=== PATIENT | female | born 1940 | race Caucasian/White ===

== ENCOUNTER 2019-09-03 07:27 | Inpatient (IN) | payer MEDICARE, OTHER ==
[~2019-09-03] VITALS: Ht 165.1 cm; Wt 56.7 kg
--- OUTSIDE RECORDS SUMMARY | ~2019-09-03 | XMS | Encounter Summary ---
Demographics + + + | Address | [address] | | | [place] [address] | + + + | Home Phone | | + + + | Preferred Language | Unknown | + + + | Marital Status | Single | + + + | Yazidi Affiliation | [id number] | + + + | Race | Unknown | + + + | Ethnic Group | Unknown | + + + Author + + + | Author | [facility] | | | and [place] | + + + | Organization | [facility] | | | and [place] | + + + | Address | Unknown | + + + | Phone | Unavailable | + + + Support + + +---------+ + | Name | Relationship | Address | Phone | + + +---------+ + | Josue Schaeffer | ECON | Unknown | | + + +---------+ + Care Team Providers + +------+ + | Care Industrial Safety And Health Manager Name | Role | Phone | + +------+ + | Ramesh You DO | PCP | | + +------+ + Reason for Visit + + + | Reason | Comments | + + + | Follow-up | | + + + Follow Up (Routine) + +--------+ + + + + | Status | Reason | Specialty | Diagnoses / | Referred By | Referred To | | | | | Procedures | Contact | Contact | + +--------+ + + + + | Authorized | | Cardiology | Diagnoses | Avelino, | Ramírez, | | | | | Encounter | Ramesh | MD Godwin | | | | | for | Baldemar, DO 56 | [address] | | | | | adjustment | [address] | [address] | | | | | and | [place] | [place], | | | | | management | [place], [place] | [place] [address] | | | | | of other | [id number] | Phone: | | | | | part of | Phone: | [phone] | | | | | cardiac | [phone] | Fax: | | | | | pacemaker | Fax: | [phone] | | | | | Atherosclero | [phone] | | | | | | tic heart | | | | | | | disease of | | | | | | | algaaciq | | | | | | | coronary | | | | | | | artery | | | | | | | without | | | | | | | angina | | | | | | | pectoris | | | | | | | Presence of | | | | | | | cardiac | | | | | | | pacemaker | | | | | | | Sick sinus | | | | | | | syndrome | | | | | | | (HCC) | | | | | | | Procedures | | | | | | | OFFICE VISIT | | | | | | | EXTENDED | | | + +--------+ + + + + Encounter Details +--------+---------+ + + + | Date | Type | Department | Care Team | Description | +--------+---------+ + + + | 07/25/ | Office | [facility] | Sourav Martinez | Pacemaker | | 2019 | Visit | CARDIOLOGY [address] | MD Christopher [address] | reprogramming/check | | | | [place], | [address] [place] | (Primary Dx); | | | | [place] [id number] | [place] [id number] | Pacemaker, Dual | | | | [phone] | [phone] | Chamber Medtronic | | | | | | 06/24/2015 Dr. Aden | | | | | | Kareen ; | | | | | | Tachycardia-bradycar | | | | | | kimberlee syndrome (HCC); | | | | | | Essential | | | | | | hypertension, | | | | | | benign; Mixed | | | | | | hyperlipidemia | +--------+---------+ + + + Social History + +-------+ +--------+------+ | Tobacco Use | Types | Packs/Day | Years | Date | | | | | Used | | + +-------+ +--------+------+ | Never Smoker | | | | | + +-------+ +--------+------+ + +---+---+---+ | Smokeless Tobacco: | | | | | Never Used | | | | + +---+---+---+ + + +---------+ + | Alcohol Use | Drinks/Week | oz/Week | Comments | + + +---------+ + | Not Currently | | | | + + +---------+ + + + + + | Alcohol Habits | Answer | Date Recorded | + + + + | How often do you have a drink containing | Never | 07/14/2018 | | alcohol? | | | + + + + | How many drinks containing alcohol do you | Not asked | | | have on a typical day when you are | | | | drinking? | | | + + + + | How often do you have six or more drinks on | Not asked | | | one occasion? | | | + + + + + + + | Sex Assigned at | Date Recorded | | | | + + + | Not on file | | + + + documented as of this encounter Last Filed Vital Signs + + + + + | Vital Sign | Reading | Time Taken | Comments | + + + + + | Blood Pressure | 132/68 | 07/26/2019 1:04 PM | | | | | PDT | | + + + + + | Pulse | 68 | 07/26/2019 1:04 PM | | | | | PDT | | + + + + + | Temperature | - | - | | + + + + + | Respiratory Rate | 16 | 07/26/2019 1:04 PM | | | | | PDT | | + + + + + | Oxygen Saturation | - | - | | + + + + + | Inhaled Oxygen | - | - | | | Concentration | | | | + + + + + | Weight | 57.6 kg (126 lb 15.8 | 07/26/2019 1:04 PM | | | | oz) | PDT | | + + + + + | Height | 165.1 cm (5' 5") | 07/26/2019 1:04 PM | | | | | PDT | | + + + + + | Body Mass Index | 21.13 | 07/26/2019 1:04 PM | | | | | PDT | | + + + + + documented in this encounter Progress Notes Sourav Martinez MD - 07/26/2019 1:30 PM PDTFormatting of this note might be differe nt from the original. PATIENT NAME: Maria Alejandra Schaeffer : 1940: AGE: 78 y.o. REFERRED BY: Godwin Elmore MD PRIMARY CARE: Chinmay You DO CARDIOLOGY OFFICE VISIT Date of Service: 07/26/19 HISTORY OF PRESENT ILLNESS: Maria Alejandra Schaeffer is a 78 y.o. 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 She is being seen today for further consultation further evaluation given her history of valvular disease. Her Josue dill sees me. She is referred by Godwin Elmore MD for her history of valvular disease and pacemaker t herapy. She describes a history of aortic valve replacement with [address] Theo aortic valve, mi tral valve replacement with [address] Theo mitral valve on 12/10/94 at [facility] by Ihsan guan MD. she states that prior to that, she had previously undergone mitral valve repair in . No detailed surgical records are available for review. She has been compliant with her anticoagulation regimen and checks her INRs herself. She is moderately active without any exertional symptoms. MEDICAL, SURGICAL, AND PERSONAL HISTORY Past Medical History: Diagnosis Date Cardiac abnormality Hyperlipidemia Past Surgical History: Procedure Laterality Date CARDIAC PACEMAKER PLACEMENT PANCREATECTOMY TOTAL HYSTERECTOMY Family History Problem Relation Age of Onset Diabetes Mother Cancer Father Family Status Relation Name Status Mother (Not Specified) Father (Not Specified) Social History Socioeconomic History Marital status: Single Spouse name: Not on file Number of children: Not on file Years of education: Not on file Highest education level: Not on file Tobacco Use Smoking status: Never Smoker Smokeless tobacco: Never Used Substance and Sexual Activity Alcohol use: Not Currently Frequency: Never Drug use: Never CURRENT MEDICATIONS Current Outpatient Medications Medication Sig Dispense Refill albuterol (PROAIR HFA) 90 mcg/puff inhaler Inhale 1-2 puffs into the lungs every 4 hour s as needed. ALPRAZolam (XANAX) 0.5 mg tablet cholecalciferol (VITAMIN D-3) 25 mcg (1,000 units) capsule Take 2,000 Units by mouth. ezetimibe (ZETIA) 10 mg tablet Take 10 mg by mouth Daily. fluticasone (FLONASE) 50 mcg/nasal spray 2 sprays. fluticasone-salmeterol (ADVAIR DISKUS) 100-50 mcg/puff diskus inhaler Inhale 1 puff int o the lungs. furosemide (LASIX) 20 mg tablet Take 20 mg by mouth. levothyroxine (SYNTHROID) 75 MCG tablet Take 75 mcg by mouth. meclizine (ANTIVERT) 25 mg tablet Take 25 mg by mouth. metoprolol tartrate (LOPRESSOR) 25 mg tablet Take 25 mg by mouth 2 times daily. sertraline (ZOLOFT) 50 mg tablet Take 25 mg by mouth. tiZANidine (ZANAFLEX) 2 MG tablet Take 2 mg by mouth every 8 hours as needed. traMADol (ULTRAM) 50 mg tablet VENTOLIN HFA 108 (90 Base) MCG/ACT inhaler warfarin (COUMADIN) 5 mg tablet Take 5 mg by mouth. No current facility-administered medications for this visit. ALLERGIES Allergies Allergen Reactions Atorvastatin Myalgia Muscle weakness-->possible myositis Codeine Other (See Comments) Adhesive & Tape Rash ROS I have reviewed the Review of Systems form dated today and scanned into the media tab. OBJECTIVE: PHYSICAL EXAM BP 132/68 | Pulse 68 | Resp 16 | Ht 1.651 m (5' 5") | Wt 57.6 kg (126 lb 15.8 oz) | BM I 21.13 kg/m Physical Exam Constitutional: She is oriented to person, place, and time. She appears well-developed and well-nourished. HENT: Head: Normocephalic. Eyes: No scleral icterus. Neck: Normal carotid pulses and no JVD present. Carotid bruit is not present. Cardiovascular: Normal rate, regular rhythm, S1 normal, S2 normal, normal heart sounds, int act distal pulses and normal pulses. PMI is not displaced. Exam reveals no gallop and no mid systolic click. No murmur heard. Pulses: Carotid pulses are 2+ on the right side and 2+ on the left side. Radial pulses are 2+ on the right side and 2+ on the left side. Dorsalis pedis pulses are 2+ on the right side and 2+ on the left side. Pulmonary/Chest: Effort normal and breath sounds normal. No accessory muscle usage. No resp iratory distress. She has no wheezes. She has no rhonchi. She has no rales. Abdominal: Soft. Normal aorta and bowel sounds are normal. She exhibits no abdominal bruit. There is no hepatosplenomegaly. There is no abdominal tenderness. Musculoskeletal: General: No edema. Neurological: She is alert and oriented to person, place, and time. Gait normal. Skin: Skin is warm and dry. No cyanosis. Nails show no clubbing. Psychiatric: She has a normal mood and affect. Her mood appears not anxious. She does not e xhibit a depressed mood. Vitals reviewed. ECG: Reviewed by me notable for atrial paced rhythm, heart rate 68, inferolateral T wave ab normalities. LAB RESULTS: LIPID Lab Results Component Value Date CHOLHDL 4.5 (A) 07/06/2018 LDLEX 117 (A) 07/06/2018 HDLEX 41.3 07/06/2018 TRIGEX 130 07/06/2018 CHOLEX 184 07/06/2018 CHEMISTRY Lab Results Component Value Date GLUEX 97 07/06/2018 NAEX 140 07/06/2018 KEX 4.3 07/06/2018 CLEX 104 07/06/2018 CO2EX 25 07/06/2018 ASTEX 26 07/06/2018 ALTEX 9 07/06/2018 EGFREX 33 07/06/2018 CREEX 1.53 (A) 07/06/2018 HEMATOLOGY Lab Results Component Value Date WBCEX 4.7 07/06/2018 HGBEX 13.5 07/06/2018 HCTEX 40.7 07/06/2018 PLTEX 146 07/06/2018 I reviewed records from PCP for office visit on 07/14/2018. Echocardiogram on 09/30/1999 shows normal left ventricular size and systolic function, mecha nical valves in mitral and aortic position with normal forward velocities and no evidence of significant regurgitation. mild mitral regurgitation cannot be ruled out. At [facility] Echocardiogram on 10/18/2001 shows normal left ventricular size and systolic function, aorti c and mitral mechanical prosthesis with good hemodynamic function; disc motion is present. Prudencio Morgan M.D. at [facility] Echocardiogram on 02/06/11 shows Left ventricular size and systolic function are normal, th ere is biatrial enlargement, there is a normal functioning mechanical mitral valve. 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 By Bandar Tucker MD at [facility]. Echocardiogram on 01/13/12 shows, the study was technically difficult with many images being suboptimal in quality, visualization is limited, but LV systolic function is grossly normal , left ventricular ejection fraction is 60% (+/- 5), borderline concentric left ventricular hypertrophy, there is a prosthetic mitral valve with normal function, there is a prosthetic aortic valve with mild stenosis, compared to the prior echo report on 02/06/11, there is no significant change. By Bandar Tucker MD at [facility] Echocardiogram on 12/29/12 shows the cardiac rhythm showed frequent PVCs during the exam, l eft ventricular systolic function is normal, the left and right atria are severely enlarged, there is a mechanical mitral valve, the prosthetic mitral valve function s normally, there is a mechanical aortic valve, the gradients through the prosthetic aortic valve are mildly increased for this type of valve suggesting mild stenosis, compared to the prior echo report on 01/13/2012, there is no significant change. By Sonya faustin MD Echocardiogram on 03/13/14 shows, left ventricular systolic function is normal, the gradients for this prosthetic mitral valve are in the normal range, the gradients through the prosthe tic aortic valve are mildly increased for this type of valve suggesting mild stenosis, luis red to the prior echo report on 12/29/12, there is no significant change. By Markie Mathur MD. Echocardiogram on 04/09/15 shows, left ventricular systolic function is normal, the gradients for this prosthetic mitral valve are in the normal range, the gradients through the prosthe tic aortic valve are mildly increased for this type of valve suggesting mild stenosis, luis red to the prior echo report on 03/13/2014, there is no significant change. By Markie narayan MD Echocardiogram on 08/14/16 shows, left ventricular systolic function is normal, the left and right atria are severely enlarged, the gradients for this prosthetic mitral valve are in the normal range. By Markie Mathur MD. The gradients through the prosthetic aortic valve are within the normal range for this type of valve, aortic valve gradients have improved to the normal range, compared with the prior exam. Left ventricular ejection fraction is 55% (+/- 5). By Markie Mathur MD at [facility] ASSESSMENT: 1. History of aortic and mitral valve replacement -patient underwent mechanical mitral and aortic valve replacements in 1994. She would benefit from repeat evaluation via echocardio graphy as it has not been performed for 3 years. She has been compliant with her INRs with good monitoring and has not had any exertional complaints. 2. History of sick sinus syndrome status post dual-chamber pacemaker implantation -this wa s carried out in 2016. Device interrogation today reveals underlying sinus bradycardia with heart rate in the 30s and 97% atrial pacing. Estimated battery longevity 5.5 years. Nette smith has normal and stable device function with good heart rate histogram. We will see her in 6 months for repeat evaluation. PLAN: 1. Echocardiogram. 2. Device interrogation in 6 months. 3. Fall prevention reemphasized. 4. Continue current medications for now. Total time of approximately 60 minutes was spent with the patient and/or patient's family, and/or on the patient's floor/unit, of which more than 50% was spent counseling and/or coord ination the patient's care related to history of valve replacement, device therapy, and sugg estions for further work-up and management. ISourav MD, PhD, [facility] personally performed the services described in this documentation. All medical record entries made by the clinical office support specialist were at my dir ection. I have reviewed the documentation and discharge instructions (if appropriate), and edited the documentation if necessary. I agree that the record reflects my personal performa nce and is accurate and complete for visit date 07/26/2019. Portions of this report were transcribed using voice recognition software. Every effort wa s made to ensure accuracy; however, inadvertent computerized line therapist errors may be pre sent. Electronically signed by: She Martinez MD PhD FACC 07/26/2019 documented in t his encounter Procedure Notes Sourav Martinez MD - 07/26/2019 1:30 PM PDTAssociated Order(s): DEVICE INTERROGATIO NProcedure(s): DEVICE INTERROGATIONPre-Procedure Diagnose(s): Pacemaker reprogramming/check; Pacemaker; Tachycardia-bradycardia syndrome (HCC) PATIENT NAME: Maria Alejandra Schaeffer : 1940: AGE: 78 y.o. Pacemaker Evaluation Report July 26, 2019 Reason for evaluation: new patient Indication for pacemaker: Tachycardia-bradycardia syndrome (HCC) (I49.5, 427.81); Pacemaker (Z95.0, V45.01); Pacemak er reprogramming/check (Z45.018, V53.31) Patient was seated and/or reclined and device was interrogated. Pacemaker parameters, batte ry status, percentages pacing and significant arrhythmias were reviewed. Heart rate histogra ms were assessed for adequate heart rate response and any alerts reviewed. Appropriate lead impedance testing was performed. Pacing impedances were reviewed for any significant changes . Sensing tests were performed by decreasing LRL. Adequacy of pacing thresholds were tested by increasing LRL for each lead and recorded for loss of capture. Final outputs were assesse d for adequate safety margins. Please see the scanned [facility] report and device PDF for further details. Data collected by Mari Guzman RN Underlying rhythm: sinus bradycardia 39 beats. 0 mode switch episodes accounting for <0.1% of the time. 0 atrial high rate episodes. 15 ventricular high rate episodes. The longest occurred 11/03/2018 at 3:43 PM for 6 seconds. EGM is consistent with 10 beat run of NSVT with rate 126-185 beats. PVC singles 199.5/hour PVC runs 4.7/hour Histogram good. Battery longevity 5.5 years. Normal and stable device function. Prefers office checks. Device interrogation due in office in 6 months. documented in t his encounter Plan of Treatment Not on filedocumented as of this encounter Procedures + +--------+ + + + | Procedure Name | Priori | Date/Time | Associated Diagnosis | Comments | | | ty | | | | + +--------+ + + + | ECG 12 LEAD | Routin | 07/26/2019 | Essential | Results for this | | | e | 1:50 PM | hypertension, benign | procedure are in the | | | | PDT | Mixed | results section. | | | | | hyperlipidemia | | + +--------+ + + + | DEVICE INTERROGATION | Routin | 07/26/2019 | Pacemaker | Results for this | | | e | 1:30 PM | reprogramming/check | procedure are in the | | | | PDT | Pacemaker, Dual | results section. | | | | | Chamber Medtronic | | | | | | 06/24/2015 Dr. Aden | | | | | | Kareen | | | | | | Tachycardia-bradycar | | | | | | kimberlee syndrome (HCC) | | + +--------+ + + + documented in this encounter Results ECG 12 lead (07/26/2019 1:50 PM PDT) + + + + + + | Component | Value | Ref Range | Performed | Pathologist | | | | | At | Signature | + + + + + + | VENTRICULAR | 68 | BPM | [facility] | | | RATE EKG | | | | | + + + + + + | ATRIAL RATE | 68 | BPM | [facility] | | + + + + + + | P-R | 204 | ms | [facility] | | | INTERVAL | | | | | + + + + + + | QRS | 84 | ms | [facility] | | | DURATION | | | | | + + + + + + | Q-T | 376 | ms | [facility] | | | INTERVAL | | | | | + + + + + + | Q-T | 399 | ms | [facility] | | | INTERVAL | | | | | | (CORRECTED) | | | | | + + + + + + | QRS AXIS | 54 | degrees | [facility] | | + + + + + + | T AXIS | -54 | degrees | [facility] | | + + + + + + | INTERPRETAT | Atrial-paced rhythmT | | [facility] | | | ION TEXT | wave abnormality, | | | | | | consider inferolateral | | | | | | ischemiaAbnormal ECGWhen | | | | | | compared with ECG of | | | | | | 14-JUL-2018 14:04,No | | | | | | significant change was | | | | | | foundConfirmed by | | | | | | RAMÍREZ BORDEN, GODWIN | | | | | | ([id number]) on 07/28/2019 | | | | | | 12:06:01 PM | | | | + + + + + + + + | Specimen | + + | | + + + + + | Narrative | Performed At | + + + | | | + + + + +---------+ + + | Performing | Address | City/State/Zipcode | Phone Number | | Organization | | | | + +---------+ + + | [facility] | | | | + +---------+ + + Device Interrogation (07/26/2019 1:30 PM PDT) + + + | Narrative | Performed At | + + + | Sourav White | [facility] | | MD Michelle 07/26/2019 3:51 PM PATIENT NAME: Maria Alejandra Medina | | | Maksim : 1940: AGE: 78 y.o. Pacemaker Evaluation | | | Report July 26, 2019 Reason for evaluation: new patientIndication for | | | pacemaker: Tachycardia-bradycardia syndrome (HCC) (I49.5, 427.81); | | | Pacemaker (Z95.0, V45.01); Pacemaker reprogramming/check (Z45.018, | | | V53.31) Patient was seated and/or reclined and device was | | | interrogated. Pacemaker parameters, battery status, percentages pacing | | | and significant arrhythmias were reviewed. Heart rate histograms were | | | assessed for adequate heart rate response and any alerts reviewed. | | | Appropriate lead impedance testing was performed. Pacing impedances | | | were reviewed for any significant changes. Sensing tests were | | | performed by decreasing LRL. Adequacy of pacing thresholds were tested | | | by increasing LRL for each lead and recorded for loss of capture. | | | Final outputs were assessed for adequate safety margins. Please see | | | the scanned [facility] report and device PDF for further details.Data | | | collected by Mari Guzman RN Underlying rhythm: sinus bradycardia 39 | | | beats.0 mode switch episodes accounting for <0.1% of the time. 0 | | | atrial high rate episodes. 15 ventricular high rate episodes. The | | | longest occurred 11/03/2018 at 3:43 PM for 6 seconds. EGM is consistent | | | with 10 beat run of NSVT with rate 126-185 beats.PVC singles | | | 199.5/hour PVC runs 4.7/hourHistogram good. | | | Battery longevity 5.5 years.Normal and stable device function.Prefers | | | office checks. Device interrogation due in office in 6 months. | | |recorded for loss of capture. Final outputs were assessed for | | |adequate safety margins. | | | | | |Please see the scanned [facility] report and device PDF for further | | |details. | | |Data collected by Mari Guzman RN | | | | | | Underlying rhythm: sinus bradycardia 39 beats. | | |0 mode switch episodes accounting for <0.1% of the time. | | |0 atrial high rate episodes. | | |15 ventricular high rate episodes. The longest occurred 11/03/2018 | | |at 3:43 PM for 6 seconds. EGM is consistent with 10 beat run of | | |NSVT with rate 126-185 beats. | | |PVC singles 199.5/hour | | |PVC runs 4.7/hour | | |Histogram good. Battery longevity 5.5 years. | | |Normal and stable device function. | | |Prefers office checks. | | |Device interrogation due in office in 6 months. | | | | | | | | + + + + +---------+ + + | Performing | Address | City/State/Zipcode | Phone Number | | Organization | | | | + +---------+ + + | [facility] | | | | + +---------+ + + documented in this encounter Visit Diagnoses + + | Diagnosis | + + | Pacemaker reprogramming/check - Primary Fitting and adjustment of cardiac pacemaker | + + | Pacemaker, Dual Chamber Medtronic 06/24/2015 Dr. Markie Mathur Cardiac pacemaker in | | situ | + + | Tachycardia-bradycardia syndrome (HCC) Sinoatrial node dysfunction | + + | Essential hypertension, benign | + + | Mixed hyperlipidemia | + + documented in this encounter
--- OUTSIDE RECORDS SUMMARY | ~2019-09-03 | XMS | Encounter Summary ---
Demographics + + + | Address | [address] | | | [place] [address] | + + + | Home Phone | | + + + | Preferred Language | Unknown | + + + | Marital Status | | + + + | Zoroastrianism Affiliation | VANDA | + + + | Race | White | + + + | Ethnic Group | Not or | + + + Author + + + | Organization | Unknown | + + + | Address | Unknown | + + + | Phone | Unavailable | + + + Support + + + + + | Name | Relationship | Address | Phone | + + + + + | Josue Schaeffer | ECON | [address] | | | | | [place] [address] | | + + + + + | Dariana Dowling | ECON | Unknown | | + + + + + Care Team Providers + +------+ + | Care Motion Picture Film Examiner Name | Role | Phone | + +------+ + PCP | Unavailable | + +------+ + Encounter Details +--------+ + + + + | Date | Type | Department | Care Team | Description | +--------+ + + + + | 12/09/ | Results | | Other, Faculty | | | 1994 | Only | | [phone] | | +--------+ + + + + Social History + +-------+ +--------+------+ | Tobacco Use | Types | Packs/Day | Years | Date | | | | | Used | | + +-------+ +--------+------+ | Never Assessed | | | | | + +-------+ +--------+------+ + + + | Sex Assigned at | Date Recorded | | | | + + + | Not on file | | + + + + + + + | Job Start Date | Occupation | Industry | + + + + | Not on file | Not on file | Not on file | + + + + + + + + | Travel History | Travel Start | Travel End | + + + + + + | No recent travel history available. | + + documented as of this encounter Plan of Treatment Not on filedocumented as of this encounter Procedures + +--------+ + + + | Procedure Name | Priori | Date/Time | Associated Diagnosis | Comments | | | ty | | | | + +--------+ + + + | X-RAY CHEST 2 VIEW | Routin | 12/09/1994 | | Results for this | | | e | 8:25 PM | | procedure are in the | | | | PST | | results section. | + +--------+ + + + documented in this encounter Results CHEST 2 VIEW (12/09/1994 8:25 PM PST) + + + + + + | Component | Value | Ref Range | Performed | Pathologist | | | | | At | Signature | + + + + + + | CHEST, 2 | Radiologist 1: [place], | | | | | VIEWS [place] | [facility] | | | | | STEREO | J.-Radiologist 2: | | | | | | SUD[facility] GOLD, | | | | | | MARIA ALEJANDRA HARRELL | | | | | | | | | | | | | | | | | | CHEST, | | | | | | PA AND LATERAL VIEWS: | | | | | | 12-09-94 at 2025 hours | | | | | | Dictated: 12-17-94 | | | | | | There are no old films | | | | | | available for | | | | | | comparison. FINDINGS: | | | | | | No pneumothorax is | | | | | | identified. The lungs | | | | | | appear clear.The | | | | | | costophrenic angles are | | | | | | sharp bilaterally. | | | | | | There is promince | | | | | | ofthe left atrial | | | | | | appendage consistent | | | | | | with left atrial | | | | | | enlargement.The | | | | | | remainder of the | | | | | | cardiomediastinal | | | | | | silhouette appears | | | | | | normal. Thepulmonary | | | | | | vasculature appears | | | | | | normal. The bony | | | | | | structures appearnormal. | | | | | | IMPRESSION: Left | | | | | | atrial enlargement. END | | | | | | OF IMPRESSION: | | | | + + + + + + + + | Specimen | + + | | + + + + + | Narrative | Performed At | + + + | [facility] | | + + + + +---------+ + + | Performing | Address | City/State/Zipcode | Phone Number | | Organization | | | | + +---------+ + + | [facility] | | | | [facility]IOLOG[facility] | | | | + +---------+ + + documented in this encounter Visit Diagnoses Not on filedocumented in this encounter"
--- OUTSIDE RECORDS SUMMARY | ~2019-09-03 | XMS | Encounter Summary ---
Demographics + + + | Address | [address] | | | [place] [address] | + + + | Home Phone | | + + + | Preferred Language | Unknown | + + + | Marital Status | | + + + | Yazdanism Affiliation | VANDA | + + + | Race | White | + + + | Ethnic Group | Not or | + + + Author + + + | Author | [facility] | + + + | Organization | [facility] | + + + | Address | Unknown | + + + | Phone | Unavailable | + + + Support + + + + + | Name | Relationship | Address | Phone | + + + + + | Josue Schaeffer | ECON | [address] | | | | | [place] [address] | | + + + + + | Dariana Dowling | ECON | Unknown | | + + + + + Care Team Providers + +------+ + | Care Appeals Specialist Name | Role | Phone | + +------+ + | Josiah Walls MD | PCP | | + +------+ + Reason for Referral Diagnostic Testing (Routine) +--------+--------+ + + + + | Status | Reason | Specialty | Diagnoses / | Referred By | Referred To | | | | | Procedures | Contact | Contact | +--------+--------+ + + + + | Closed | | Cardiology | Diagnoses | Pantely, | Car Echo | | | | | Aortic | MD Emanuel | [address] | | | | | valve | [address] | | | | | disease, | Ave | [place] | | | | | rheumatic | [place], [place] | Muse | | | | | Procedures | [phone] | Building, 2nd | | | | | TRANSTHORACI | | floor | | | | | C | | [place], [place] | | | | | ECHOCARDIOGR | | [address] | | | | | AM, ADULT | | Phone: | | | | | | | [phone] | +--------+--------+ + + + + Reason for Visit + + + | Reason | Comments | + + + | Follow-up encounter | | + + + Office Visit - E/M Services (Routine) +--------+--------+ + + + + | Status | Reason | Specialty | Diagnoses / | Referred By | Referred To | | | | | Procedures | Contact | Contact | +--------+--------+ + + + + | Closed | | Cardiology | | Kirit, | Eddie, | | | | | | Dejon Boogie, | MD Emanuel | | | | | | POOL COORDINATOR BLUE | [address] | | | | | | [place] | [facility] | | | | | | URGENT CARE | [place], [place] | | | | | | [address] | [address] | | | | | | [address] | | | | | | | [place], | | | | | | | [place] [address] | | | | | | | Phone: | | | | | | | [phone] | | | | | | | Fax: | | | | | | | [phone] | | +--------+--------+ + + + + Encounter Details +--------+---------+ + + + | Date | Type | Department | Care Team | Description | +--------+---------+ + + + | 07/31/ | Office | Cardiology [facility] at | Emanuel Morgan, | Aortic valve | | 2009 | Visit | [facility] [address] | MD | disease, rheumatic; | | | | [facility] | | Mitral valve | | | | [facility], | | disorder [address] | | | | Building | | | | | | [place], [place] | | | | | | [address] | | | | | | [phone] | | | +--------+---------+ + + + Social History + +-------+ +--------+------+ | Tobacco Use | Types | Packs/Day | Years | Date | | | | | Used | | + +-------+ +--------+------+ | Never Smoker | | | | | + +-------+ +--------+------+ + + +---------+ + | Alcohol Use | Drinks/Week | oz/Week | Comments | + + +---------+ + | Not Asked | | | | + + +---------+ + + + + | Sex Assigned [...] + + + | Blood Pressure | 146/76 | 07/31/2009 10:59 AM | | | | | PDT | | + + + + + | Pulse | 56 | 07/31/2009 10:59 AM | | | | | PDT | | + + + + + | Temperature | - | - | | + + + + + | Respiratory Rate | - | - | | + + + + + | Oxygen Saturation | 98% | 07/31/2009 10:59 AM | | | | | PDT | | + + + + + | Inhaled Oxygen | - | - | | | Concentration | | | | + + + + + | Weight | 62.3 kg (137 lb 6.4 | 07/31/2009 10:59 AM | | | | oz) | PDT | | + + + + + | Height | 163.8 cm (5' 4.5") | 07/31/2009 10:59 AM | | | | | PDT | | + + + + + | Body Mass Index | 23.22 | 07/31/2009 10:59 AM | | | | | PDT | | + + + + + documented in this encounter Patient Instructions Patient Instructions Emanuel Morgan MD - 07/31/2009 12:03 PM PDT1. General Information. Physician Information: Emanuel Morgan M.D. Division of Cardiovascular Medicine [place] [address] Email: [email or web address] Cardiovascular Medicine Web Site: [email or web address] Office: [phone] After hours: [phone] and ask to speak to the physician taking calls for cardiology. Appointments: [phone] Nurse (for questions, requests, or to provide information): Malka Rosado RN: [phone]. If your call is long distance, dial the toll-free number of . This will conn ect you to an [facility] rocket assembly operator who can connect you to the number or person that you want. documented in this encounter Progress Notes Emanuel Morgan MD - 08/04/2009 9:06 PM PDTFormatting of this note might be different fro m the original. CARDIOLOGY RETURN VISIT Maria Alejandra Schaeffer is a 68 y.o. 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 Referring Provider/PCP: Josiah Walls MD Cardiac Problem list/risk factors: 1. Rheumatic heart disease. 1.1. Mitral valve commissurotomy. 1.2. 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 1.3. Chronic warfarin therapy. 1.4. Functional class II status but not necessarily related to her heart. 1.5 Increasing edema, controlled on diuretics 2. Hypertension, controlled. 3. Chronic migraines. 4. Chronic allergies. 5. Hypothyroidism, now euthyroid. 6. Diffuse joint and muscular pains related to arthritis and/or fibromyalgia. 7. Two "falls" episodes of uncertain etiology. Current outpatient prescriptions Medication Sig ADVAIR DISKUS 250-50 mcg/Dose Inhalation Disk with Device 1 puff in the morning and 1 p uff at night CALCIUM + D OR (1200 mg calcium and 500mg vitamin D) 1 tablet daily COD LIVER OIL OR 1 capsule daily Fluticasone Propionate (FLONASE) 50 mcg/Actuation Nasal Aerosol, [place] 2 sprays in am a nd pm Garlic 1,000 mg Oral Capsule 2 capsules daily guaifenesin LA (MUCINEX) 600 mg Oral Tablet Sustained Release Take 600 mg by mouth two times daily. LASIX 20 MG TAB take 1 tablet (20mg) by oral route once daily Lecithin 1,200 mg Oral Tablet, Chewable once daily levothyroxine 75 mcg Oral Tablet Take 75 mcg by mouth once daily. lisinopril 5 mg Oral Tablet Take 1 Tab by mouth once daily. MECLIZINE OR (10 mg tablet) 1/2 tablet daily POTASSIUM CHLORIDE SR 10 MEQ CAP take 1 tab daily with food salsalate 500 mg Oral Tablet 1 tablet daily VITAMIN B COMPLEX OR 1200 mg daily VITAMIN C 1,000 mg Oral Tablet 1 tablet daily VITAMIN E OR 1 tablet daily WARFARIN SODIUM 5 MG ORAL TAB take as directed by anticoagulation clinic XANAX 2 mg Oral Tablet 1/4 tablet at night as needed ZOLOFT 50 mg Oral Tablet 1/2 tablet daily Allergies: Aspirin, Clarification needed, Adhesive tape and Codeine Subjective: Maria Alejandra Ureña Cartersha has noted a number os symptoms since I last saw her. She is noting more pal pitations over the past 6 months. She is most aware of them at night. She is not aware ceasar t they cause her any difficulty. No sustained rapid rates. She also notes lightheadedness especially when she rapidly turns her head. She was started on meclozine for this and she f eels it may be helping. She also notes that she has had what she calls 2 "falls", one about 5 months ago and the second about 2 months. Both of these occurred while she was standing. She suddenly notes she is falling over. It is unclear when she is losing consciousness, o r as she feels, she loses her balance as she tries to walk or turn, but she states that her legs don't move. She hit her head both times (different sides) and she had a CT after the m ost recent that did not show any subdural hemorrhage or evidence of a stroke. It is unclear whether she has any warnings and it is also unclear whether she lost consciousness. She fe els she didn't and that she is awake the entire time. That is why she refers to them as "fa lls". She doesn't think her heart rate is fast as she is aware of the valve clicks. It is more difficult for her to tell whether her HR could be very slow. She feels that she is onesimo rt and clear immediately after the fall. No explanation for these 2 "falls" has been identi fied. She continues to be active. She can walk on the level OK, but inclines make her dyspneic. She can do 1 flight of stairs, but needs to rest if she tries a 2nd flight. She hasn't bee n very active over the winter and hopes to get outside more now that the weather is improvin g. Cardiac Risks: Age and Hypertension Exercise Tolerance: NYHA FC II Review of System: See attached flow sheet. Physical Exam: Vitals: BP 146/76 | Pulse 56 | Ht 1.638 m (5' 4.5") | Wt 62.324 kg (137 lb 6.4 oz) | SpO2 98% GENERAL: Well appearing, no acute distress. HEENT: WNL. Wears glasses LUNGS: Clear to auscultation. CV: Estimated JVP is <8 cm. Carotid upstrokes are normal; No bruits. PMI is in the 5th IC S at MCL. Regular rhythm with extrasystoles. Mechanical heart sounds heard. 2/6 FERNANDO at th e base. No rubs or gallops. ABDOMEN: No tenderness, active bowel sounds. No hepatic or splenic enlargement. EXTREMITIES: Pulses are +2 symmetrical. No edema. SKIN: No cyanosis. ECG: (today) NSR rate 54 bpm. Premature atrial and ventricular complexes. Non-specific ST-T abnormaliti es. ECHO: (today) Assessment: Aortic and mitral mechanical valve replacement 15 years ago that are functioning well. Her exercise capacity is stable. I don't know what to make out of her "falls". I am not certa in whether they are falls due to some balance or mechanical issues vs a syncopal episode. I t is difficult for her to be certain, but she feels she is awake the entire time and is awar e she is falling. Her description is that she is going to walk, but her legs don't start mo ving in time and she falls. I see nothing obvious from her ECG or Echo that would explain w hat is going on. She does have PACs and PVCs, but those alone shouldn't cause problems. Mary hammer makes light of the episodes and states that she just needs to be more careful so that she doesn't fall. I am not certain whether that is correct. I am concerned that this could be cardiac or neurologic in etiology. The problem is the infrequent episodes. I think it woul d be reasonable to do an exercise test to see if any arrhythmia occurs. Otherwise, it would take a loop recorder implantation to enable us to obtain an ECG at the time of an event, if one occurs again. Plan: 1. She prefers that we just continue to observe her and she will try to be more careful ab out the" falls" .I don't have much better to offer at this point, but I do want her to let me know if she has another "fall". If so, I think a cardiac evaluation with exercise test a nd implantable loop recorder can be considered. Neurologic evaluation might also be conside red. 2. Appointment in 1 year if stable. documented in this en counter Plan of Treatment + +------+--------+ + + | Name | Type | Priori | Associated Diagnoses | Order Schedule | | | | ty | | | + +------+--------+ + + | TRANSTHORACIC | ECG | Routin | Aortic valve | Ordered: 07/31/2009 | | ECHOCARDIOGRAM, | | e | disease, rheumatic | | | ADULT | | | | | + +------+--------+ + + documented as of this encounter Procedures + +--------+ + + + | Procedure Name | Priori | Date/Time | Associated Diagnosis | Comments | | | ty | | | | + +--------+ + + + | OUTSIDE CARDIOLOGY | | 01/28/2010 | | Results for this | | | | 10:52 AM | | procedure are in the | | | | PST | | results section. | + +--------+ + + + | OUTSIDE CARDIOLOGY | | 12/27/2009 | | Results for this | | | | 12:00 AM | | procedure are in the | | | | PST | | results section. | + +--------+ + + + | EJECTION FRACTION | Routin | 07/31/2009 | | Results for this | | | e | 1:31 PM | | procedure are in the | | | | PDT | | results section. | + +--------+ + + + | 12 LEAD ECG | Routin | 07/31/2009 | Aortic valve | Results for this | | | e | 11:59 AM | disease, rheumatic | procedure are in the | | | | PDT | Mitral valve | results section. | | | | | disorder 424.0 | | + +--------+ + + + documented in this encounter Results OUTSIDE CARDIOLOGY (01/28/2010 10:52 AM PST) + + + | Narrative | Performed At | + + + | | | + + + + + | Procedure Note | + + | 01/28/2010 10:52 AM PST | | | + + OUTSIDE CARDIOLOGY (12/27/2009 12:00 AM PST) + + + | Narrative | Performed At | + + + | | | + + + + + | Procedure Note | + + | 12/27/2009 12:00 AM PST | | | + + EJECTION FRACTION (07/31/2009 1:31 PM PDT) + + + + + + | Component | Value | Ref Range | Performed | Pathologist | | | | | At | Signature | + + + + + + | EJECTION | >60%Comment: EF Recorded | | [facility] | | | FRACTION | from Transthoracic | | OF | | | | Echocardiogram | | CARDIOLOGY | | + + + + + + + + | Specimen | + + | | + + + + + + + | Performing | Address | City/State/Zipcode | Phone Number | | Organization | | | | + + + + + | [facility] | [address] | [place], [place] | | | CARDIOLOGY | [address] | [address] | | + + + + + 12 LEAD ECG (07/31/2009 11:59 AM PDT) + + + + + + | Component | Value | Ref Range | Performed | Pathologist | | | | | At | Signature | + + + + + + | VENTRICULAR | 54 | BPM | [facility] | | | RATE | | | OF | | | | | | CARDIOLOGY | | + + + + + + | ATRIAL RATE | 54 | BPM | [facility] | | | | | | OF | | | | | | CARDIOLOGY | | + + + + + + | P-R | 164 | ms | [facility] | | | INTERVAL | | | OF | | | | | | CARDIOLOGY | | + + + + + + | QRS | 92 | ms | [facility] | | | DURATION | | | OF | | | | | | CARDIOLOGY | | + + + + + + | QT | 434 | ms | [facility] | | | | | | OF | | | | | | CARDIOLOGY | | + + + + + + | QTC | 411 | ms | [facility] | | | | | | OF | | | | | | CARDIOLOGY | | + + + + + + | R AXIS | 17 | degrees | [facility] | | | | | | OF | | | | | | CARDIOLOGY | | + + + + + + | T AXIS | 156 | degrees | [facility] | | | | | | OF | | | | | | CARDIOLOGY | | + + + + + + | EKG | Sinus bradycardia with | | [facility] | | | DIAGNOSIS | Possible Premature | | OF | | | | atrial complexes | | CARDIOLOGY | | | | withAberrant | | | | | | conductionST & T wave | | | | | | abnormality, consider | | | | | | anterolateral | | | | | | ischemiaAbnormal ECG"I | | | | | | have personally | | | | | | interpreted this report, | | | | | | either alone or with a | | | | | | trainee."Confirmed by | | | | | | MANOHAR PALM ([id number]) on | | | | | | 02-Aug-2009 12:18:34 | | | | + + + + + + + + | Specimen | + + | | + + + + + | Narrative | Performed At | + + + | Please click | [facility] | | on view image for the detailed interpretation from [employer] results. | CARDIOLOGY | + + + + + + + + | Performing | Address | City/State/Zipcode | Phone Number | | Organization | | | | + + + + + | [facility] | [address] | [place], [place] | | | CARDIOLOGY | [address] | [address] | | + + + + + documented in this encounter Visit Diagnoses + + | Diagnosis | + + | Aortic valve disease, rheumatic Other and unspecified rheumatic aortic diseases | + + | Mitral valve disorder 424.0 Mitral valve disorders | + + documented in this encounter
--- OUTSIDE RECORDS SUMMARY | ~2019-09-03 | XMS | Encounter Summary ---
Demographics + + + | Address | [address] | | | [place] [address] | + + + | Home Phone | | + + + | Preferred Language | Unknown | + + + | Marital Status | | + + + | Jainism Affiliation | VANDA | + + + | Race | White | + + + | Ethnic Group | Not or | + + + Author + + + | Author | [facility] | + + + | Organization | [facility] | + + + | Address | Unknown | + + + | Phone | Unavailable | + + + Support + + + + + | Name | Relationship | Address | Phone | + + + + + | Josue Schaeffer | ECON | [address] | | | | | [place] [address] | | + + + + + | Dariana Dowling | ECON | Unknown | | + + + + + Care Team Providers + +------+ + | Care Furnace Filler Name | Role | Phone | + +------+ + | Josiah Walls MD | PCP | | + +------+ + Reason for Visit + + + | Reason | Comments | + + + | Appointment | | + + + Encounter Details +--------+ + + + + | Date | Type | Department | Care Team | Description | +--------+ + + + + | 01/23/ | Telephone | Cardiology [facility] at | Emanuel Morgan, | Appointment | | 2009 | | [facility] [address] | | | | | | [facility] | | | | | | Health and Healing, | | | | | | Building | | | | | | Floor [place], [place] | | | | | | [address] | | | | | | [phone] | | | +--------+ + + + + [...] Comments | + + +---------+ + | No | | | | + + +---------+ [...] Not on filedocumented as of this encounter Visit Diagnoses Not on filedocumented in this encounter"
--- OUTSIDE RECORDS SUMMARY | ~2019-09-03 | XMS | Encounter Summary ---
Demographics + + + | Address | [address] | | | [place] [address] | + + + | Home Phone | | + + + | Preferred Language | Unknown | + + + | Marital Status | | + + + | Rastafarian Affiliation | VANDA | + + + | Race | White | + + + | Ethnic Group | Not or | + + + Author + + + | Author | [facility] | + + + | Organization | [facility] | + + + | Address | Unknown | + + + | Phone | Unavailable | + + + Support + + + + + | Name | Relationship | Address | Phone | + + + + + | Josue Schaeffer | ECON | [address] | | | | | [place] [address] | | + + + + + | Dariana Dowling | ECON | Unknown | | + + + + + Care Team Providers + +------+ + | Care Ob/Gyn Physician Name | Role | Phone | + +------+ + PCP | Unavailable | + +------+ + Encounter Details +--------+ + + + + | Date | Type | Department | Care Team | Description | +--------+ + + + + | 08/12/ | Office | [facility] | Note, Outpatient | Progress Note | | 2000 | Visit-Trans | MEDICINE | Clinic | | | | cribed | | | | +--------+ + + + [...] + + documented as of this encounter Progress Notes Interface, Professor Sculpture In - 11/25/2005 1:02 AM PDTCLINIC DATE: 08/12/2000 ENDOCRINOLOGY CLINIC SUBJECTIVE: The patient returns for followup of Graves' disease. She last states that she is feeling better. She remains on Tapazole 10 mg p.o. t.i.d. She does note some complaints of increased bowel movements with some fecal incontinence. She denies any problems with palpitations and Dr. Morgan has discontinued her Toprol at this time. She states her energy level is good, and she has no difficulties with breathing. She denies any problems with tremor. She is still having some problems with her muscles, most particularly in her legs. She has also noticed some changes in her nails with some darkening and lined areas. OBJECTIVE: VITAL SIGNS: Weight 132.5 pounds, blood pressure 112/70, and pulse is 52. GENERAL: This is a very pleasant elderly woman in no acute distress. HEENT: There is no conjunctival injection or chemosis. Extraocular movements are intact without lid lag, retractions or staring. NECK: Supple. There is approximately 30 to 40-g soft goiter with no distinct nodules. There is no peripheral tremor. CARDIAC: PMI is normal. SKIN: Normal thickness and temperature. NEUROLOGIC: Reflexes are 2+ with normal relaxation phase. EXTREMITIES: There is trace pedal edema. IMPRESSION: Grave's disease status post status post radioactive iodine ablation with 10.7 mEq of Iodine-131 6 weeks ago, currently clinically euthyroid. We will confirm this with laboratories today and adjust her Tapazole as needed. I anticipate that over the next several months, we will be able to taper and discontinue her Tapazole. I discussed with her that there is a risk for permanent hypothyroidism, and should this occur, we would need to start thyroid hormone replacement. To assess for this, we will need thyroid function tests approximately once in a month, and the patient is agreeable to this. I discussed with her that the changes in her nails may be related to her hyperthyroidism, and that she may additionally expect some hair loss which is common after episodes of hyperthyroidism. In addition, I do wonder about her hyperdefecation as to whether she still may some subtle hyperthyroidism but again, we will check thyroid function tests today and adjust her Tapazole as needed. Now that her thyroid hormone levels are better controlled, it is very appropriate to stop her beta fide. 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 PLAN 1. Free T4 and TSH to adjust dose of Tapazole today. 2. I plan to repeat thyroid function tests to be done at a lab near her home. The patient was given a lab slip for that. 3. Return to clinic in 2 months for repeat clinical examination. Oralia Self M.D. [facility] [employer] [facility] [place] / [id number] / [id number] / [id number] / C: 08/25/2000 ds cc: Emanuel Morgan M.D. [facility] Cardiology [address] MARI EDOUARD M.D. [facility] [address] [place] [address] [place] [id number] signed by Interface, Professor Sculpture In at 11/25/2005 1:02 AM PDTInterf patria, Professor Sculpture In - 11/25/2005 1:02 AM PDTCLINIC DATE: 08/12/2000 CARDIOLOGY CLINIC REASON FOR VISIT: Mrs. Schaeffer is a 60-year-old woman who comes in for a followup of her cardiac status after being treated for hyperthyroidism. MEDICAL PROBLEM LIST 1. Rheumatic heart disease. 1.1 Mitral valve commissurotomy. 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 1.3 Coumadin therapy. 1.4 Functional class II status. 2. Hypertension, controlled. 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 4. Chronic migraine headaches. 5. Chronic swelling in the left arm from surgery. 6. Multiple allergies. 7. Acute hyperthyroidism, now successfully treated. MEDICATIONS: Coumadin is suggested based on the INR, Claritin 10 mg q.d., Flonase inhaler p.r.n., albuterol inhaler p.r.n., Azmacort inhaler p.r.n., Serevent inhaler p.r.n., Premarin 0.625 mg 1/2 a tablet q.d., Lasix 20 mg q.d. p.r.n., meclizine 25 mg p.r.n., salicylate 5 mg p.r.n., promethazine 25 mg p.r.n., and Librium 5 mg p.r.n. SUBJECTIVE: Mrs. Schaeffer is actually doing very well. She is not having any more of the shakes. The swelling has gotten a whole lot better. All of her symptoms are pretty much resolving. She is seeing Dr. Self today in Endocrinology. She is still on the Tapazole and is on thyroid replacement and those will be evaluated and adjusted today. She is also still taking metoprolol 50 mg b.i.d. which she will stop. She notices that if she walks too long or works out in the yard too much, her legs will get tired, otherwise she has been doing well. She has had no bleeding with her Coumadin. PHYSICAL EXAMINATION: GENERAL: She does not have any of the findings of hyperthyroidism. VITAL SIGNS: Her weight is 133 pounds, blood pressure is 130/72, and pulse is 55 and regular. When she was at the peak of her hyperthyroidism, her weight was 104 pounds. LUNGS: Clear to auscultation. CARDIAC: Jugular venous pressure is 5 to 6 cm. She has a systolic ejection murmur along the left sternal border at 2/6. No diastolic murmurs are heard. ABDOMEN: Bowel sounds are active, nontender. EXTREMITIES: No edema in her legs. ASSESSMENT: Mrs. Schaeffer is doing well and returning to baseline after a successful treatment of her hyperthyroidism. PLAN 1. We will discontinue the atenolol. 2. Continue on her other medications. 3. She can either let us know if she is coming back to see Dr. Self again, and we can try to set up a joint appointment, otherwise we would see her in 6 months' time. Emanuel Morgan M.D. GP / HS [id number] / [id number] / [id number] / [id number] signed by Interface, Professor Sculpture In at 11/25/2005 1:02 AM PDTdocume nted in this encounter Plan of Treatment Not on filedocumented as of this encounter Visit Diagnoses Not on filedocumented in this encounter"
--- OUTSIDE RECORDS SUMMARY | ~2019-09-03 | XMS | Encounter Summary ---
Demographics + + + | Address | [address] | | | [place] [address] | + + + | Home Phone | | + + + | Preferred Language | Unknown | + + + | Marital Status | | + + + | Yazdanism Affiliation | VANDA | + + + | Race | White | + + + | Ethnic Group | Not or | + + + Author + + + | Author | [facility] | + + + | Organization | [facility] | + + + | Address | Unknown | + + + | Phone | Unavailable | + + + Support + + + + + | Name | Relationship | Address | Phone | + + + + + | Josue Schaeffer | ECON | [address] | | | | | [place] [address] | | + + + + + | Dariana Dowling | ECON | Unknown | | + + + + + Care Team Providers + +------+ + | Care Tube Backer Name | Role | Phone | + +------+ + | Enoc Lee NP | PCP | | + +------+ + Encounter Details +--------+ + + + + | Date | Type | Department | Care Team | Description | +--------+ + + + + | 10/12/ | Ancillary | Registration [id number] | Maurice Garcia Capri, | | | 2006 | Registratio | [facility] | [address] | | | | n | [address]: [id number] | [place], [place] | | | | | [place], [place] | [address] | | | | | [address] | [phone] | | | | | [phone] | | | +--------+ + + + [...]
--- OUTSIDE RECORDS SUMMARY | ~2019-09-03 | XMS | Encounter Summary ---
Demographics + + + | Address | [address] | | | [place] [address] | + + + | Home Phone | | + + + | Preferred Language | Unknown | + + + | Marital Status | | + + + | Caodaism Affiliation | VANDA | + + + | Race | White | + + + | Ethnic Group | Not or | + + + Author + + + | Author | [facility] | + + + | Organization | [facility] | + + + | Address | Unknown | + + + | Phone | Unavailable | + + + Support + + + + + | Name | Relationship | Address | Phone | + + + + + | Josue Schaeffer | ECON | [address] | | | | | [place] [address] | | + + + + + | Dariana Dowling | ECON | Unknown | | + + + + + Care Team Providers + +------+ + | Care Automobile Mechanic Helper Name | Role | Phone | + +------+ + | Enoc Lee NP | PCP | | + +------+ + Encounter Details +--------+ + + + + | Date | Type | Department | Care Team | Description | +--------+ + + + + | 12/01/ | Ancillary | Registration [id number] | Charity Cartagena, | | | 2004 | Registratio | [facility] [address] | [address] [facility] | | | | [address] | [address]: [id number] | [address] | | | | | [place], [place] | [place], [place] | | | | | [address] | [address] | | | | | [phone] | [phone] | | | | | | | | +--------+ + + [...]
--- OUTSIDE RECORDS SUMMARY | ~2019-09-03 | XMS | Encounter Summary ---
Demographics + + + | Address | [address] | | | [place] [address] | + + + | Home Phone | | + + + | Preferred Language | Unknown | + + + | Marital Status | | + + + | Gnosticist Affiliation | VANDA | + + + | Race | White | + + + | Ethnic Group | Not or | + + + Author + + + | Author | [facility] | + + + | Organization | [facility] | + + + | Address | Unknown | + + + | Phone | Unavailable | + + + Support + + + + + | Name | Relationship | Address | Phone | + + + + + | Josue Schaeffer | ECON | [address] | | | | | [place] [address] | | + + + + + | Dariana Dowling | ECON | Unknown | | + + + + + Care Team Providers + +------+ + | Care Retail Management Keyholder Name | Role | Phone | + +------+ + | Josiah Walls MD | PCP | | + +------+ + Reason for Visit AUTH/CERT +--------+--------+ + + + + | Status | Reason | Specialty | Diagnoses / | Referred By | Referred To | | | | | Procedures | Contact | Contact | +--------+--------+ + + + + | Closed | | | | | [facility] [address] | | | | | | | Proceduralcar | | | | | | | [address] | | | | | | | [address] | | | | | | | [address] | | | | | | | [facility] | | | | | | | Hospital | | | | | | | [place], [place] | | | | | | | [address] | | | | | | | Phone: | | | | | | | [phone] | | | | | | | Fax: | | | | | | | [phone] | +--------+--------+ + + + + Encounter Details +--------+ + + + + | Date | Type | Department | Care Team | Description | +--------+ + + + + | 11/08/ | Hospital | [facility] [address] | George Webb MD | | | 2009 | Encounter | [address] | [address] | | | | | [address] [facility] | [address] [place], | | | | | [place], [place] | [place] [address] | | | | | [address] | [phone] | | | | | [phone] | | | +--------+ + + + [...] + + + | Blood Pressure | 142/60 | 11/08/2009 3:17 PM | | | | | PDT | | + + + + + | Pulse | 57 | 11/08/2009 3:17 PM | | | | | PDT | | + + + + + | Temperature | 35.6 C (96.1 F) | 11/08/2009 3:17 PM | | | | | PDT | | + + + + + | Respiratory Rate | 16 | 11/08/2009 3:17 PM | | | | | PDT | | + + + + + | Oxygen Saturation | 99% | 11/08/2009 3:17 PM | | | | | PDT | | + + + + + | Inhaled Oxygen | - | - | | | Concentration | | | | + + + + + | Weight | 60 kg (132 lb 3.2 | 11/08/2009 11:10 AM | | | | oz) | PDT | | + + + + + | Height | 165.1 cm (5' 5") | 11/08/2009 11:10 AM | | | | | PDT | | + + + + + | Body Mass Index | 22 | 11/08/2009 11:10 AM | | | | | PDT | | + + + + + documented in this encounter Discharge Instructions Instructions Madeline Mcintosh RN - 11/08/2009Formatting of this note might be differen t from the original. NURSING COMMUNICATION CONTINUOUS Discontinue Comments: Communication: Pt to be discharged, once awake and can walk and eat and ambul ate. No driving today.ILR Discharge InstructionsFollow the guidelines below. Call you doct or if you notice any unusual symptoms. Remember: you are under the influence of medicines. You must have some one else take you home, either by car or taxi. Do not drive, operate machinery or power tools. Don t drink any alcoholic beverages. Don t make any impor tant decision or sign legal papers.Wound CareWatch your ILR site for infection report an y redness, swelling, green or yellow drainage from the site (pink or clear drainage can be n ormal). Report temperatures over 100.5 degrees.The incision will not have stitches on the ou tside but will have steri-strips (plastic strips) holding the incision together do not p ull these off. After one week (when you can begin bathing or showering again) they will wa sh off.No direct water on the incision site for five days that means no showering or swi mming. There is no need to have a bandage over the site unless there is drainage. Sukumar r, you may want to wear a bandage if you clothing is irritating. (Women may choose not to we ar a bra as it may be irritating). Do not immerse the wound in a tub or pool for one month a fter the procedure.The incision site and healing process should be checked by someone, daryl r your local physician or in the EP Clinic here in one week.Diet:Your diet should not have t o be changed as a result of your ILR explant. Please check with your doctor or nurse if th ere is any other reason to change your diet.Activities:The instructions here pertain only to your ILR. There may be other activity recommendations based on other medical conditions.T he first week restrict arm activity to gentle arm motion only! During the first week avoid h eavy lifting (no more that 10 lbs.) pushing or pulling, and over aggressive arm motions (i.e . tennis, painting, lawn mowing).We are advocates of regular activity and think that you inder uld, if you are able, walk, bicycle or swim. Whatever is most enjoyable for you, three to fi ve days a week. If you don t know how to begin a regular activity program, please ask lola toledo.Symptoms to Report:If in the first month you notice signs of infectionIf you have a ny new symptoms like dizziness, fainting or new chest pain or shortness of breath.How to Con tact us: Cardiology Division Office [phone] Cardiology Patient Shun ne LineDr. George Reynaga. Bandar Ivy, ANP Katelyn Conley darshan or weekends: ask for on-call forestry biology specialist documented in this encounter Medications at Time of Discharge + + + +---------+--------+ + | Medication | Sig | Dispensed | Refills | Start | End Date | | | | | | Date | | + + + +---------+--------+ + | CALCIUM + D OR | (1200 mg calcium and | | 0 | | | | | 500mg vitamin D) 1 | | | | | | | tablet daily | | | | | + + + +---------+--------+ + | COD LIVER OIL OR | 1 capsule daily | | 0 | | | + + + +---------+--------+ + | Garlic 1,000 mg | 2 capsules daily | | 0 | | | | Oral Capsule | | | | | | + + + +---------+--------+ + | Lecithin 1,200 mg | once daily | | 0 | | | | Oral Tablet, | | | | | | | Chewable | | | | | | + + + +---------+--------+ + | salsalate 500 mg | takes 1 tablet per | | 0 | | | | Oral Tablet | week | | | | | + + + +---------+--------+ + | VITAMIN B COMPLEX | 1200 mg daily | | 0 | | | | OR | | | | | | + + + +---------+--------+ + | VITAMIN C 1,000 mg | 1 tablet daily | | 0 | | | | Oral Tablet | | | | | | + + + +---------+--------+ + | VITAMIN E OR | 1 tablet daily | | 0 | | | + + + +---------+--------+ + | XANAX 2 mg Oral | 1/4 tablet at night | | 0 | | | | Tablet | as needed | | | | | + + + +---------+--------+ + | ZOLOFT 50 mg Oral | 1/2 tablet daily | | 0 | | | | Tablet | | | | | | + + + +---------+--------+ + documented as of this encounter Progress Notes Wale Guerrier Md - 11/08/2009 3:37 PM PDTEP fellow brief Note: Mrs Schaeffer has had green leafy vegetables in the last few days and within 1 day her INR went from 2.9 to 1.22 (repeat INR 1.3) . Her last dose of coumadin was on Wednesday (5mg). She knott s missed one dose only. She says she can adjust her coumadin so that her INR becomes therape utic. She will resume her coumadin today at 7.5 mg. She will start Lovenox from am (60 mg po bid ) for 2 days. She will have her INR checked on Wednesday. Wound check in 1 week with device clinic. D/w Dr Webb re her anticoagulation. Wale Guerrier MD Cruise Director Pager [phone] #[phone] documented in this e ncounter Plan of Treatment Not on filedocumented as of this encounter Procedures + +--------+ + + + | Procedure Name | Priori | Date/Time | Associated Diagnosis | Comments | | | ty | | | | + +--------+ + + + | [place] IMPLANT CARD | Routin | 03/15/2015 | | Results for this | | EVENT RECRD,PT-ACT | e | 8:26 AM | | procedure are in the | | | | PST | | results section. | + +--------+ + + + | CARDIOLOGY | | 11/08/2009 | | Results for this | | | | 4:15 PM | | procedure are in the | | | | PDT | | results section. | + +--------+ + + + | INR | Urgent | 11/08/2009 | | Results for this | | | | 2:05 PM | | procedure are in the | | | | PDT | | results section. | + +--------+ + + + | 12 LEAD ECG | Routin | 11/08/2009 | | Results for this | | | e | 11:22 AM | | procedure are in the | | | | PDT | | results section. | + +--------+ + + + | INR | Routin | 11/08/2009 | | Results for this | | | e | 10:59 AM | | procedure are in the | | | | PDT | | results section. | + +--------+ + + + | BASIC METABOLIC SET | Routin | 11/08/2009 | | Results for this | | (NA, K, CL, TCO2, | e | 10:59 AM | | procedure are in the | | BUN, CR, GLU, CA) | | PDT | | results section. | + +--------+ + + + | CBC ONLY | Routin | 11/08/2009 | | Results for this | | | e | 10:59 AM | | procedure are in the | | | | PDT | | results section. | + +--------+ + + + documented in this encounter Results [place] IMPLANT CARD EVENT MISAEL,PT-ACT (03/15/2015 8:26 AM PST)CARDIOLOGY (11/08/2009 4:15 PM PDT) + + + | Narrative | Performed At | + + + | | | + + + + + | Procedure Note | + + | Poli Grubbs - 11/14/2009 7:50 PM PDT | | | + + INR (11/08/2009 2:05 PM PDT) + + + + + + | Component | Value | Ref Range | Performed | Pathologist | | | | | At | Signature | + + + + + + | INR | 1.30 (H)Comment: | 0.90 - 1.20 INR | [facility] | | | | INR Therapeutic ranges | | DEPARTMENT | | | | for full | | OF | | | | anticoagulation: | | PATHOLOGY | | | | INR for Venous | | | | | | Thromboembolism | | | | | | (2.0-3.0) | | | | | | INR INR for most | | | | | | patients with mech. | | | | | | valves (2.5-3.5) | | | | | | INR | | | | + + + + + + + + | Specimen | + + | Blood - Blood | + + + + + + + | Performing | Address | City/State/Zipcode | Phone Number | | Organization | | | | + + + + + | [facility] | [address] | [place] [address] | | | PATHOLOGY | [address] | | | + + + + + 12 LEAD ECG (11/08/2009 11:22 AM PDT) + + + + + + | Component | Value | Ref Range | Performed | Pathologist | | | | | At | Signature | + + + + + + | VENTRICULAR | 63 | BPM | [facility] | | | RATE | | | OF | | | | | | CARDIOLOGY | | + + + + + + | ATRIAL RATE | 53 | BPM | [facility] | | | | | | OF | | | | | | CARDIOLOGY | | + + + + + + | P-R | 164 | ms | [facility] | | | INTERVAL | | | OF | | | | | | CARDIOLOGY | | + + + + + + | QRS | 86 | ms | [facility] | | | DURATION | | | OF | | | | | | CARDIOLOGY | | + + + + + + | QT | 460 | ms | [facility] | | | | | | OF | | | | | | CARDIOLOGY | | + + + + + + | QTC | 470 | ms | [facility] | | | | | | OF | | | | | | CARDIOLOGY | | + + + + + + | R AXIS | 26 | degrees | [facility] | | | | | | OF | | | | | | CARDIOLOGY | | + + + + + + | T AXIS | 42 | degrees | [facility] | | | | | | OF | | | | | | CARDIOLOGY | | + + + + + + | EKG | Sinus bradycardia with | | [facility] | | | DIAGNOSIS | Premature | | OF | | | | supraventricular | | CARDIOLOGY | | | | complexes with | | | | | | occasional , and | | | | | | consecutive Premature | | | | | | ventricular | | | | | | complexesNonspecific ST | | | | | | and T wave | | | | | | abnormalityProlonged | | | | | | QTAbnormal ECG"I have | | | | | | personally interpreted | | | | | | this report, either | | | | | | alone or with a | | | | | | trainee."Confirmed by | | | | | | MAHAD ATWOOD ([id number]) on | | | | | | 11/09/2009 4:33:40 PM | | | | + + + + + + + + | Specimen | + + | | + + + + + | Narrative | Performed At | + + + | Please click | [facility] | | on view image for the detailed interpretation from [employer] results. | CARDIOLOGY | + + + + + + + + | Performing | Address | City/State/Zipcode | Phone Number | | Organization | | | | + + + + + | [facility] | [address] | [place], [place] | | | CARDIOLOGY | [address] | [address] | | + + + + + INR (11/08/2009 10:59 AM PDT) + + + + + + | Component | Value | Ref Range | Performed | Pathologist | | | | | At | Signature | + + + + + + | INR | 1.22 (H)Comment: | 0.90 - 1.20 INR | [facility] | | | | INR Therapeutic ranges | | DEPARTMENT | | | | for full | | OF | | | | anticoagulation: | | PATHOLOGY | | | | INR for Venous | | | | | | Thromboembolism | | | | | | (2.0-3.0) | | | | | | INR INR for most | | | | | | patients with mech. | | | | | | valves (2.5-3.5) | | | | | | INR | | | | + + + + + + + + | Specimen | + + | Blood - Blood | + + + + + + + | Performing | Address | City/State/Zipcode | Phone Number | | Organization | | | | + + + + + | [facility] | [address] | [place] [address] | | | PATHOLOGY | [address] | | | + + + + + BASIC METABOLIC SET (NA, K, CL, TCO2, BUN, CR, GLU, CA) (11/08/2009 10:59 AM PDT) + +-------+ + + + | Component | Value | Ref Range | Performed | Pathologist | | | | | At | Signature | + +-------+ + + + | GLUCOSE, | 95 | 60 - 99 mg/dL | [facility] | | | PLASMA | | | DEPARTMENT | | | (LAB) | | | OF | | | | | | PATHOLOGY | | + +-------+ + + + | BUN, PLASMA | 16 | 6 - 20 mg/dL | [facility] | | | (LAB) | | | DEPARTMENT | | | | | | OF | | | | | | PATHOLOGY | | + +-------+ + + + | CREATININE | 0.86 | 0.60 - 1.10 | [facility] | | | PLASMA | | mg/dL | DEPARTMENT | | | (LAB) | | | OF | | | | | | PATHOLOGY | | + +-------+ + + + | SODIUM, | 140 | 134 - 143 | [facility] | | | PLASMA | | mmol/L | DEPARTMENT | | | (LAB) | | | OF | | | | | | PATHOLOGY | | + +-------+ + + + | POTASSIUM, | 3.5 | 3.4 - 5.0 | [facility] | | | PLASMA | | mmol/L | DEPARTMENT | | | (LAB) | | | OF | | | | | | PATHOLOGY | | + +-------+ + + + | CHLORIDE, | 106 | 97 - 108 mmol/L | [facility] | | | PLASMA | | | DEPARTMENT | | | (LAB) | | | OF | | | | | | PATHOLOGY | | + +-------+ + + + | TOTAL CO2, | 27 | 23 - 31 mmol/L | [facility] | | | PLASMA | | | DEPARTMENT | | | (LAB) | | | OF | | | | | | PATHOLOGY | | + +-------+ + + + | CALCIUM, | 9.7 | 8.6 - 10.2 | [facility] | | | PLASMA | | mg/dL | DEPARTMENT | | | (LAB) | | | OF | | | | | | PATHOLOGY | | + +-------+ + + + | ANION GAP | 7 | 4 - 11 mmol/L | [facility] | | | | | | DEPARTMENT | | | | | | OF | | | | | | PATHOLOGY | | + +-------+ + + + + + | Specimen | + + | Blood - Blood | + + + + + + + | Performing | Address | City/State/Zipcode | Phone Number | | Organization | | | | + + + + + | [facility] | [address] | [place] [address] | | | PATHOLOGY | [address] | | | + + + + + CBC ONLY (11/08/2009 10:59 AM PDT) + +-------+ + + + | Component | Value | Ref Range | Performed | Pathologist | | | | | At | Signature | + +-------+ + + + | WHITE CELL | 6.8 | 4.4 - 11.0 K/cu | [facility] | | | COUNT | | mm | DEPARTMENT | | | | | | OF | | | | | | PATHOLOGY | | + +-------+ + + + | RED CELL | 4.50 | 4.00 - 5.20 | [facility] | | | COUNT | | M/cu mm | DEPARTMENT | | | | | | OF | | | | | | PATHOLOGY | | + +-------+ + + + | HEMOGLOBIN | 13.9 | 12.0 - 16.0 | [facility] | | | | | g/dL | DEPARTMENT | | | | | | OF | | | | | | PATHOLOGY | | + +-------+ + + + | HEMATOCRIT | 41.0 | 36.0 - 46.0 % | [facility] | | | | | | DEPARTMENT | | | | | | OF | | | | | | PATHOLOGY | | + +-------+ + + + | MCV | 91.1 | 80.0 - 96.0 fL | [facility] | | | | | | DEPARTMENT | | | | | | OF | | | | | | PATHOLOGY | | + +-------+ + + + | MCHC | 34.0 | 33.4 - 35.5 | [facility] | | | | | g/dL | DEPARTMENT | | | | | | OF | | | | | | PATHOLOGY | | + +-------+ + + + | RDW | 13.9 | 11.5 - 15.0 % | [facility] | | | | | | DEPARTMENT | | | | | | OF | | | | | | PATHOLOGY | | + +-------+ + + + | PLATELET | 181 | 150 - 400 K/cu | [facility] | | | COUNT | | mm | DEPARTMENT | | | | | | OF | | | | | | PATHOLOGY | | + +-------+ + + + + + | Specimen | + + | Blood - Blood | + + + + + + + | Performing | Address | City/State/Zipcode | Phone Number | | Organization | | | | + + + + + | [facility] | [address] | [place], [place] [address] | | | PATHOLOGY | [address] | | | + + + + + documented in this encounter Visit Diagnoses + + | Diagnosis | + + | Other specified cardiac dysrhythmias(427.89) Other specified cardiac dysrhythmias | + + documented in this encounter
--- OUTSIDE RECORDS SUMMARY | ~2019-09-03 | XMS | Encounter Summary ---
Demographics + + + | Address | [address] | | | [place] [address] | + + + | Home Phone | | + + + | Preferred Language | Unknown | + + + | Marital Status | | + + + | Pentecostalism Affiliation | VANDA | + + + | Race | White | + + + | Ethnic Group | Not or | + + + Author + + + | Author | [facility] | + + + | Organization | [facility] | + + + | Address | Unknown | + + + | Phone | Unavailable | + + + Support + + + + + | Name | Relationship | Address | Phone | + + + + + | Josue Schaeffer | ECON | [address] | | | | | [place] [address] | | + + + + + | Dariana Dowling | ECON | Unknown | | + + + + + Care Team Providers + +------+ + | Care Play Writer Name | Role | Phone | + +------+ + | Josiah Walls MD | PCP | | + +------+ + Reason for Visit +--------+ + | Reason | Comments | +--------+ + | Other | | +--------+ + Encounter Details +--------+ + + + + | Date | Type | Department | Care Team | Description | +--------+ + + + + | 02/26/ | Telephone | Cardiology [facility] at | Emanuel Morgan, | Other | | 2010 | | [facility] [address] | | | | | | [facility] | | | | | | [facility], | | | | | | Building | | | | | | Floor [place], [place] | | | | | | [address] | | | | | | [phone] | | | +--------+ + + + [...]
--- OUTSIDE RECORDS SUMMARY | ~2019-09-03 | XMS | Encounter Summary ---
Demographics + + + | Address | [address] | | | [place] [address] | + + + | Home Phone | | + + + | Preferred Language | Unknown | + + + | Marital Status | | + + + | Moravian Affiliation | VANDA | + + + | Race | White | + + + | Ethnic Group | Not or | + + + Author + + + | Author | [facility] | + + + | Organization | [facility] | + + + | Address | Unknown | + + + | Phone | Unavailable | + + + Support + + + + + | Name | Relationship | Address | Phone | + + + + + | Josue Schaeffer | ECON | [address] | | | | | [place] [address] | | + + + + + | Dariana Dowling | ECON | Unknown | | + + + + + Care Team Providers + +------+ + | Care Audio Specialist Name | Role | Phone | + +------+ + PCP | Unavailable | + +------+ + Reason for Visit + + + | Reason | Comments | + + + | Refill Request | | + + + Encounter Details +--------+--------+ + + + | Date | Type | Department | Care Team | Description | +--------+--------+ + + + | 08/18/ | Refill | Otolaryngology | Mayra Vega MD | Refill Request | | 2005 | | [facility] [address] | [address] | | | | | [address] | [facility], | | | | | Mailcode: OP01 | [place] [address] | | | | | [facility] | [phone] | | | | | [place], [place] | | | | | | [address] | | | | | | [phone] | | | +--------+--------+ + + + Social History + +-------+ [...]
--- OUTSIDE RECORDS SUMMARY | ~2019-09-03 | XMS | Encounter Summary ---
Demographics + + + | Address | [address] | | | [place] [address] | + + + | Home Phone | | + + + | Preferred Language | Unknown | + + + | Marital Status | | + + + | Congregational Affiliation | VANDA | + + + [...] | | | | | [place] [address] | | + + + + + | Dariana Dowling | ECON | Unknown | | + + + + + Care Team Providers + +------+ + | Care Manager Summer Name | Role | Phone | + +------+ + PCP | Unavailable | + +------+ + Encounter Details +--------+ + + + + | Date | Type | Department | Care Team | Description | +--------+ + + + + | 05/18/ | Results | | Other, Faculty | | | 2000 | Only | | [phone] | | +--------+ + + + + [...] | + +--------+ + + + | CULTURE, BLOOD BACTI | Routin | 05/18/2000 | | Results for this | | & YEAST | e | 2:05 PM | | procedure are in the | | | | PDT | | results section. | + +--------+ + + + | CULTURE, BLOOD BACTI | Routin | 05/18/2000 | | Results for this | | & YEAST | e | 2:05 PM | | procedure are in the | | | | PDT | | results section. | + +--------+ + + + | FREE T4 | Routin | 05/18/2000 | | Results for this | | | e | 2:05 PM | | procedure are in the | | | | PDT | | results section. | + +--------+ + + + | THYROXINE (T4) | Routin | 05/18/2000 | | Results for this | | TOTAL, SERUM | e | 2:05 PM | | procedure are in the | | | | PDT | | results section. | + +--------+ + + + documented in this encounter Results THYROXINE (T4), TOTAL (05/18/2000 2:05 PM PDT) + + + + + + | Component | Value | Ref Range | Performed | Pathologist | | | | | At | Signature | + + + + + + | THYROXINE ( | 21.5 (H) | 4.4 - 12.0 | | | | T4) TOTAL | | ug/dl | | | + + + + + + + + | Specimen | + + | | + + + + + | Narrative | Performed At | + + + | Ordered by UNKNOWN DOCTOR | | + + + + + + + + | Performing | Address | City/State/Zipcode | Phone Number | | Organization | | | | + + + + + | [facility] | [address] | [place] [address] | | | LABORATORY | | | | + + + + + FREE T4, SERUM (05/18/2000 2:05 PM PDT) + + + + + + | Component | Value | Ref Range | Performed | Pathologist | | | | | At | Signature | + + + + + + | FREE T4, | > 6.5 (H) | 0.7 - 1.8 ng/dL | | | | SERUM | | | | | + + + + + + + + | Specimen | + + | | + + + + + | Narrative | Performed At | + + + | Ordered by UNKNOWN DOCTOR | | + + + + + + + + | Performing | Address | City/State/Zipcode | Phone Number | | Organization | | | | + + + + + | [facility] | [address] | [place] [address] | | | LABORATORY | | | | + + + + + OBEY PETER (05/18/2000 2:05 PM PDT) + + + + + + | Component | Value | Ref Range | Performed | Pathologist | | | | | At | Signature | + + + + + + | SOURCE BODY | Left Antecubital | | | | | SITE | | | | | + + + + + + | CULTURE | Blood Culture | | | | | RESULT | | | | | | | Source.................. | | | | | | : Left Antecubital | | | | | | Preliminary | | | | | | Report......: Blood | | | | | | Culture Received. No | | | | | | Growth to Date. | | | | | | Culture | | | | | | Report............: | | | | | | Final Report: No | | | | | | Bacteria or Yeast | | | | | | | | | | | | | | | | | | isolated at 5 days. | | | | + + + + + + + + | Specimen | + + | | + + + + + | Narrative | Performed At | + + + | Ordered by UNKNOWN DOCTOR | | + + + + + + + + | Performing | Address | City/State/Zipcode | Phone Number | | Organization | | | | + + + + + | [facility] | [address] | [place] [address] | | | LAB-MICRO | | | | + + + + + OBEY PETER (05/18/2000 2:05 PM PDT) + + + + + + | Component | Value | Ref Range | Performed | Pathologist | | | | | At | Signature | + + + + + + | SOURCE BODY | Right Antecubital | | | | | SITE | | | | | + + + + + + | CULTURE | Blood Culture | | | | | RESULT | | | | | | | Source.................. | | | | | | : Right Antecubital | | | | | | Preliminary | | | | | | Report......: Blood | | | | | | Culture Received. No | | | | | | Growth to Date. | | | | | | Culture | | | | | | Report............: | | | | | | Final Report: No | | | | | | Bacteria or Yeast | | | | | | | | | | | | | | | | | | isolated at 5 days. | | | | + + + + + + + + | Specimen | + + | | + + + + + | Narrative | Performed At | + + + | Ordered by UNKNOWN DOCTOR | | + + + + + + + + | Performing | Address | City/State/Zipcode | Phone Number | | Organization | | | | + + + + + | [facility] | [address] | [place] [address] | | | LAB-MICRO | | | | + + + + + documented in this encounter Visit Diagnoses Not on filedocumented in this encounter"
--- OUTSIDE RECORDS SUMMARY | ~2019-09-03 | XMS | Encounter Summary ---
Demographics + + + | Address | [address] | | | [place] [address] | + + + | Home Phone | | + + + | Preferred Language | Unknown | + + + | Marital Status | | + + + | Mosque Affiliation | VANDA | + + + [...] Josue Schaeffer | ECON | [address] | | | | | [place] [address] | | + + + + + | Dariana Dowling | ECON | Unknown | | + + + + + Care Team Providers + +------+ + | Care Construction Management Assistant Name | Role | Phone | + +------+ + | Josiah Walls MD | PCP | | + +------+ + Encounter Details +--------+ + + + + | Date | Type | Department | Care Team | Description | +--------+ + + + + | 10/01/ | Abstract | Cardiology CAROL at | Emanuel Morgan | | | 2009 | | [facility] [address] | | | | | | [facility] | | | | | | [facility], | | | | | | Building | | | | | | [place], [place] | | | | | | [address] | | | | | | [phone] | | | +--------+ + + + [...] + + | INR | Routin | 11/06/2009 | | Results for this | | | e | | | procedure are in the | | | | | | results section. | + +--------+ + + + | INR | Routin | 10/30/2009 | | Results for this | | | e | | | procedure are in the | | | | | | results section. | + +--------+ + + + | INR | Routin | 10/01/2009 | | Results for this | | | e | | | procedure are in the | | | | | | results section. | + +--------+ + + + documented in this encounter Results INR (11/06/2009) + +---------+ + + + | Component | Value | Ref Range | Performed | Pathologist | | | | | At | Signature | + +---------+ + + + | INR | 2.9 (A) | 0.98 - 1.08 INR | NON [facility] | | | | | | LAB | | + +---------+ + + + + + | Specimen | + + | Blood - Blood | + + + +---------+ + + | Performing | Address | City/State/Zipcode | Phone Number | | Organization | | | | + +---------+ + + | NON [facility] | | | | + +---------+ + + INR (10/30/2009) + +---------+ + + + | Component | Value | Ref Range | Performed | Pathologist | | | | | At | Signature | + +---------+ + + + | INR | 2.6 (A) | 0.98 - 1.08 INR | NON [facility] | | | | | | LAB | | + +---------+ + + + + + | Specimen | + + | Blood - Blood | + + + +---------+ + + | Performing | Address | City/State/Zipcode | Phone Number | | Organization | | | | + +---------+ + + | NON [facility] | | | | + +---------+ + + INR (10/01/2009) + +---------+ + + + | Component | Value | Ref Range | Performed | Pathologist | | | | | At | Signature | + +---------+ + + + | INR | 2.4 (A) | 0.98 - 1.08 INR | NON [facility] | | | | | | LAB | | + +---------+ + + + + + | Specimen | + + | Blood - Blood | + + + +---------+ + + | Performing | Address | City/State/Zipcode | Phone Number | | Organization | | | | + +---------+ + + | NON [facility] | | | | + +---------+ + + documented in this encounter Visit Diagnoses Not on filedocumented in this encounter"
--- OUTSIDE RECORDS SUMMARY | ~2019-09-03 | XMS | Encounter Summary ---
Demographics + + + | Address | [address] | | | [place] [address] | + + + | Home Phone | | + + + | Preferred Language | Unknown | + + + | Marital Status | | + + + | Religion Affiliation | VANDA | + + + | Race | White | + + + | Ethnic Group | Not or | + + + Author + + + | Author | [facility] | + + + | Organization | [facility] | + + + | Address | Unknown | + + + | Phone | Unavailable | + + + Support + + + + + | Name | Relationship | Address | Phone | + + + + + | Josue Schaeffer | ECON | [address] | | | | | [place] [address] | | + + + + + | Dariana Dowling | ECON | Unknown | | + + + + + Care Team Providers + +------+ + | Care Parts Designer Name | Role | Phone | + +------+ + | Enoc Lee NP | PCP | | + +------+ + Encounter Details +--------+ + + + + | Date | Type | Department | Care Team | Description | +--------+ + + + + | 06/07/ | Hospital | Cardiac | Sjh, Car Ecg Tech | | | 2013 | Encounter | Non-Invasive Testing | [address] | | | | | at [facility] | [facility] | | | | | [address] | [place] [address] | | | | | [address] | | | | | | [place], 2nd floor | | | | | | [place], [place] | | | | | | [address] | | | | | | [phone] | | | +--------+ + + + [...] + + documented as of this encounter Medications at Time of Discharge + + + +---------+ + + | Medication | Sig | Dispensed | Refills | Start | End Date | | | | | | Date | | + + + +---------+ + + | albuterol 90 | Inhale 2 Puffs every | 1 | 2 | // | | | mcg/Actuation | four hours as | Inhaler | | 10 | | | Inhalation HFA | needed. | | | | | | Aerosol Inhaler | | | | | | + + + +---------+ + + | CALCIUM + D OR | (1200 mg calcium and | | 0 | | | | | 500mg vitamin D) 1 | | | | | | | tablet daily | | | | | + + + +---------+ + + | cholecalciferol, | Take 2,000 Units by | | 0 | | | | Vitamin D3, (VITAMIN | mouth once daily. | | | | | | D3) 2,000 unit Oral | | | | | | | capsule | | | | | | + + + +---------+ + + | COD LIVER OIL OR | 1 capsule daily | | 0 | | | + + + +---------+ + + | ezetimibe (ZETIA) | Take 10 mg by mouth | | 0 | | | | 10 mg Oral tablet | once daily. | | | | | + + + +---------+ + + | fluticasone | Instill 2 Sprays | | 0 | | | | (FLONASE) 50 | into each nostril | | | | | | mcg/Actuation Nasal | once daily. | | | | | | [place], Suspension | | | | | | + + + +---------+ + + | | Inhale 1 Puff as | | 0 | | | | fluticasone-salmeter | needed. | | | | | | ol 100-50 mcg/dose | | | | | | | Inhalation Disk with | | | | | | | Device | | | | | | + + + +---------+ + + | Garlic 1,000 mg | 2 capsules daily | | 0 | | | | Oral Capsule | | | | | | + + + +---------+ + + | GLUCOSAMINE | Take 2,000 mg by | | 0 | | | | SULFATE (GLUCOSAMINE | mouth. | | | | | | ORAL) | | | | | | + + + +---------+ + + | GUAIFENESIN | Take 1 Tab by mouth | | 0 | 05/22/19 | | | (MUCINEX ORAL) | as needed. | | | 11 | | + + + +---------+ + + | Lecithin 1,200 mg | once daily | | 0 | | | | Oral Tablet, | | | | | | | Chewable | | | | | | + + + +---------+ + + | levothyroxine 50 | Take 50 mcg by mouth | | 0 | | | | mcg Oral tablet | once daily. | | | | | + + + +---------+ + + | MECLIZINE HCL | Take by mouth. (10 | | 0 | | | | (MECLIZINE ORAL) | mg tablet) 1/2 | | | | | | | tablet twice daily | | | | | | | as needed | | | | | + + + +---------+ + + | | Take by mouth. | | 0 | | | | METHYLSULFONYLMETHAN | | | | | | | E (MSM ORAL) | | | | | | + + + +---------+ + + | POTASSIUM CHLORIDE | Take by mouth. | | 0 | | | | (KLOR-CON 10 ORAL) | | | | | | + + + +---------+ + + | salsalate 500 mg | takes 1 tablet per | | 0 | | | | Oral Tablet | week | | | | | + + + +---------+ + + | sodium chloride | Instill 2 Sprays | 50 mL | 2 | 01/07/20 | | | 0.65 % Nasal | into each nostril as | | | 10 | | | Aerosol, [place] | needed. | | | | | + + + +---------+ + + | VITAMIN B COMPLEX | 1200 mg daily | | 0 | | | | OR | | | | | | + + + +---------+ + + | VITAMIN C 1,000 mg | 1 tablet daily | | 0 | | | | Oral Tablet | | | | | | + + + +---------+ + + | VITAMIN E OR | 1 tablet daily | | 0 | | | + + + +---------+ + + | warfarin 5 mg Oral | Take 5 mg by mouth | | 0 | | | | Tablet | once daily. Take 7.5 | | | | | | | mg on Wednesday and | | | | | | | , 5 mg all | | | | | | | other days as | | | | | | | directed by the | | | | | | | anticoagulation | | | | | | | clinic | | | | | + + + +---------+ + + | XANAX 2 mg Oral | 1/4 tablet at night | | 0 | | | | Tablet | as needed | | | | | + + + +---------+ + + | ZOLOFT 50 mg Oral | 1/2 tablet daily | | 0 | | | | Tablet | | | | | | + + + +---------+ + + documented as of this encounter Plan of Treatment Not on filedocumented as of this encounter Procedures + +--------+ + + + | Procedure Name | Priori | Date/Time | Associated Diagnosis | Comments | | | ty | | | | + +--------+ + + + | 12 LEAD ECG | Routin | 06/07/2012 | Rheumatic heart | Results for this | | | e | 3:34 PM | disease | procedure are in the | | | | PDT | | results section. | + +--------+ + + + documented in this encounter Results 12 LEAD ECG (06/07/2012 3:34 PM PDT) + + + + + + | Component | Value | Ref Range | Performed | Pathologist | | | | | At | Signature | + + + + + + | VENTRICULAR | 68 | BPM | [facility] | | | RATE | | | OF | | | | | | CARDIOLOGY | | + + + + + + | ATRIAL RATE | 50 | BPM | [facility] | | | | | | OF | | | | | | CARDIOLOGY | | + + + + + + | P-R | 168 | ms | [facility] | | | INTERVAL | | | OF | | | | | | CARDIOLOGY | | + + + + + + | QRS | 86 | ms | [facility] | | | DURATION | | | OF | | | | | | CARDIOLOGY | | + + + + + + | QT | 470 | ms | [facility] | | | | | | OF | | | | | | CARDIOLOGY | | + + + + + + | QTC | 499 | ms | [facility] | | | | | | OF | | | | | | CARDIOLOGY | | + + + + + + | R AXIS | 16 | degrees | [facility] | | | | | | OF | | | | | | CARDIOLOGY | | + + + + + + | T AXIS | 130 | degrees | [facility] | | | | | | OF | | | | | | CARDIOLOGY | | + + + + + + | EKG | Sinus bradycardia with | | [facility] | | | DIAGNOSIS | occasional Premature | | OF | | | | ventricular complexes | | CARDIOLOGY | | | | and Possible Premature | | | | | | atrial complexes with | | | | | | Aberrant conductionST & | | | | | | T wave abnormality, | | | | | | consider lateral | | | | | | ischemiaProlonged | | | | | | QTAbnormal ECGConfirmed | | | | | | by GAURANG OJEDA ([id number]) | | | | | | on 06/08/2012 6:02:54 AM | | | | + + + + + + + + | Specimen | + + | | + + + + + | Narrative | Performed At | + + + | Please click | [facility] | | on view image for the detailed interpretation from [employer] results. | CARDIOLOGY | + + + + + + + + | Performing | Address | City/State/Zipcode | Phone Number | | Organization | | | | + + + + + | [facility] | [address] | [place], [place] | | | CARDIOLOGY | [facility] | [address] | | + + + + + documented in this encounter Visit Diagnoses Not on filedocumented in this encounter"
--- OUTSIDE RECORDS SUMMARY | ~2019-09-03 | XMS | Encounter Summary ---
Demographics + + + | Address | [address] | | | [place] [address] | + + + | Home Phone | | + + + | Preferred Language | Unknown | + + + | Marital Status | | + + + | Druze Affiliation | VANDA | + + + | Race | White | + + + | Ethnic Group | Not or | + + + Author + + + | Author | [facility] | + + + | Organization | [facility] | + + + | Address | Unknown | + + + | Phone | Unavailable | + + + Support + + + + + | Name | Relationship | Address | Phone | + + + + + | Josue Schaeffer | ECON | [address] | | | | | [place] [address] | | + + + + + | Dariana Dowling | ECON | Unknown | | + + + + + Care Team Providers + +------+ + | Care Vending Machine Servicer Name | Role | Phone | + +------+ + | Josiah Walls MD | PCP | | + +------+ + Encounter Details +--------+ + + + + | Date | Type | Department | Care Team | Description | +--------+ + + + + | 11/29/ | Telephone | Cardiology | Mayra Ivy, | | | 2009 | | Arrhythmia at [facility] | [facility] | | | | | [address] | | | | | | [facility] | | | | | | and [place], | | | | | | [facility] | | | | | | Floor [place], [place] | | | | | | [address] | | | | | | [phone] | | | +--------+ + + + [...]
--- OUTSIDE RECORDS SUMMARY | ~2019-09-03 | XMS | Encounter Summary ---
Demographics + + + | Address | [address] | | | [place] [address] | + + + | Home Phone | | + + + | Preferred Language | Unknown | + + + | Marital Status | | + + + | Voodoo Affiliation | VANDA | + + + | Race | White | + + + | Ethnic Group | Not or | + + + Author + + + | Author | [facility] | + + + | Organization | [facility] | + + + | Address | Unknown | + + + | Phone | Unavailable | + + + Support + + + + + | Name | Relationship | Address | Phone | + + + + + | Josue Schaeffer | ECON | [address] | | | | | [place] [address] | | + + + + + | Dariana Dowling | ECON | Unknown | | + + + + + Care Team Providers + +------+ + | Care Acquisition Consultant Name | Role | Phone | + +------+ + PCP | Unavailable | + +------+ + Encounter Details +--------+ + + + + | Date | Type | Department | Care Team | Description | +--------+ + + + + | 04/01/ | Office | General Internal | Note, Outpatient | Progress Note | | 1995 | Visit-Trans | Medicine [address] | Clinic | | | | yovani | [address] | | | | | | Mailcode: [id number] | | | | | | Outpatient Clinic | | | | | | [facility], [address] | | | | | | [place], [place] | | | | | | [address] | | | | | | [phone] | | | +--------+ + + + [...] as of this encounter Progress Notes Interface, Agricultural Lender In - 05/12/2006 5:41 AM PDT CLINIC DATE: 04/01/95 ENT CLINIC: SUBJECTIVE: The patient is seen back for her chronic sinusitis and nasal polyps. 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 She is doing well at this time and other than being on Coumadin has not had further problems with her heart. However, she continues to have problems with sinusitis and was recently on antibiotics. She was discussed with Dr. Rao in February and the plans are to operate on her sinuses on April 13. It was discussed with Dr. Rao what to do about her Coumadin and the plans are for her to stop Coumadin for three days prior to surgery. She will need SBE prophylaxis and will be admitted on 04/13/95. Dr. Rao will manage her heparin at that point and we plan to operate on the and do bilateral intranasal ethmoidectomy and anterior meatal windows with exploration of the nasofrontal duct. PHYSICAL EXAMINATION: She still had congestion of her nose, was sprayed with ephedrine and Xylocaine solution. She has nasal polyps both medial and lateral to the middle turbinate and in the middle meatus on both sides. I did not see active purulence today. Her CT scan from December was reviewed and shows she has an air fluid level in the left frontal sinus, total opacification of all her ethmoids and the ostial meatal complex. There is an air fluid level in the sphenoid and maxillary sinus bilaterally. IMPRESSION: Bilateral pansinusitis with nasal polyps. RECOMMENDATIONS: Bilateral intranasal ethmoidectomy and anterior meatal windows. PAR/S, patient agrees to the plan and we will see her in the hospital when she comes in April 12. Maxwell Garcia M.D. Professor, Otolaryngology Head and Neck Surgery JDS:halima cc: Gorge Rao M.D. Professor, Medicine Division of Cardiology nterface, Agricultural Lender In - 05/12/2006 5:41 AM PDT CLINIC DATE: 04/01/95 CARDIOLOGY CLINIC: Mrs. Schaeffer comes to Cardiology Clinic today for follow-up of her mitral valve replacement. Her hospital chart is unavailable at the present time so some of this dictation is from memory. She had a mitral valve replacement several months ago and eventually, over several weeks, improved her shortness of breath so that she was no longer dyspneic talking on the phone. She is in that state now and it is without respiratory difficulties at all. Recently she has been continually bothered by her sinus condition and underwent a two week treatment with antibiotics for this with improvement, considerably. She is scheduled to see Dr. Garcia in [facility] today with a plan to have her sinus surgery performed on the of next month. She will be admitted the day before, having Coumadin stopped three days before, and having SB prophylaxis at the time of surgery. PHYSICAL EXAMINATION: Vital Signs: Blood pressure is 122/80, pulse 84 and regular. Respirations unlabored. Neck: Neck veins were not distended. Lungs: Clear to auscultation. Cardiovascular: Normal S1 and S2. There were crisp prosthetic valve sounds. There was a grade II-III/ systolic ejection murmur heard along the left sternal border radiating only not above the clavicles. No holosystolic murmur was heard at the apex. There was no S3 gallop noted. Extremities: No edema. Posterior tibialis pulses on the right were intact. Her right groin in the area of hematoma at the time of her cardiac catheterization has resolved completely. ASSESSMENT/PLAN: It appears as though Mrs. Schaeffer is currently compensated. She is no longer on Digoxin or any other cardiac medications at this time and does not appear to need any. Her only medications include Coumadin, Premarin and Prinivil. Consideration for stopping the Prinivil will be given later but we will continue it for the present. I will see her again when she is in the hospital at the time of her surgery and will decide on future appointments after that date. An echocardiogram has been performed by Dr. Preciado in [place] and the patient will have a report sent to us prior to the surgery. Apparently the echocardiogram report suggested that her mitral valve was functioning properly. Gorge Rao M.D. Professor, Medicine Division of Cardiology LORA /lizzette A cc: Maxwell Garcia M.D. Professor, Otolaryngology Head and Neck Surgery [facility] documented in this encounter Plan of Treatment Not on filedocumented as of this encounter Visit Diagnoses Not on filedocumented in this encounter"
--- OUTSIDE RECORDS SUMMARY | ~2019-09-03 | XMS | Encounter Summary ---
Demographics + + + | Address | [address] | | | [place] [address] | + + + | Home Phone | | + + + | Preferred Language | Unknown | + + + | Marital Status | | + + + | Amish Affiliation | VANDA | + + + | Race | White | + + + | Ethnic Group | Not or | + + + Author + + + | Author | [facility] | + + + | Organization | [facility] | + + + | Address | Unknown | + + + | Phone | Unavailable | + + + Support + + + + + | Name | Relationship | Address | Phone | + + + + + | Josue Schaeffer | ECON | [address] | | | | | [place] [address] | | + + + + + | Dariana Dowling | ECON | Unknown | | + + + + + Care Team Providers + +------+ + | Care Water Restoration Technician Name | Role | Phone | + +------+ + PCP | Unavailable | + +------+ + Encounter Details +--------+ + + + + | Date | Type | Department | Care Team | Description | +--------+ + + + + | 09/29/ | Office | General Internal | Note, Outpatient | Progress Note | | 1996 | Visit-Trans | Medicine [address] | Clinic | | | | yovani | [address] | | | | | | Mailcode: L475 | | | | | | Outpatient Clinic | | | | | | [facility], [address] | | | | | | [place], [place] | | | | | | [address] | | | | | | [phone] | | | +--------+ + + + [...] as of this encounter Progress Notes Interface, Vice President Of Procurement In - 03/29/2006 5:11 AM PST CLINIC DATE: 09/29/96 HEART FAILURE CLINIC: SUBJECTIVE: Mrs. Schaeffer is a 56-year-old woman who comes for routine follow-up of her rheumatic heart disease. The patient last saw Dr. Rao in May,. Since he left the institution, I will be taking over this patient's care. She has rheumatic heart disease and had the mitral and aortic valve replacements with Saint Theo prosthesis in 1994. She has been troubled with chronic swelling of her left arm since that time. We are not exactly sure of the mechanism for this, but it is thought to be some problem with lymphatic drainage. She controls this by keeping her arm elevated and taking diuretics occasionally. This has been more of a nuisance problem for her. Her blood pressure has been up and down. She sort of regulates her Lisinopril based somewhat on the blood pressure readings, although she feels she has had a few more problems recently with swings in her blood pressure. Her exercise capacity has been quite good, and she pretty much can do what she wants. She does have to slow down occasionally and do things at her own pace. She has not had any bleeding problems. Her Warfarin seems to be well regulated The vertigo that she has had seems to be helped by a medication that I did not list above which is Meclizine 25 mg, and she takes 1/2 to 1 tablet as needed to control this. 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 She has been for 37 years. Their children are grown. She really is doing quite well overall. MEDICAL PROBLEM LIST: 1. Rheumatic heart disease. 1.1 Mitral valve commissurotomy 1996. 1.2 Mitral valve replacement and aortic valve replacement with Saint Theo prosthesis 1994. 1.3 Warfarin therapy. 1.4 Function class 2. 2. Hypertension. 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 4. Migraine headaches. 5. Chronic swelling of the left arm. MEDICATIONS: Current medications are: 1. Lisinopril 2.5 mg b.i.d. 2. Tylenol 1000 mg q. 4 hours and p.r.n. for joint discomfort. 3. Flonase p.r.n. 4. Maxair 2 to 4 times a day. 5. Claritin p.r.n. 6. Warfarin as directed through the Anticoagulation Clinic. ALLERGIES: When she takes her Premarin, she gets swelling and lumps in her arms and legs. OBJECTIVE: Her weight is 136.7 pounds, blood pressure 118/64, pulse is 80 and regular. Jugular venous pressure is less than 5 cm. Carotid upstrokes are brisk without bruits. Lungs clear to auscultation and cardiac shows a well-healed median sternotomy scar and stable sternum. 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 The valve sounds are heard, no murmurs or rubs. Abdomen is nontender, no hepatosplenomegaly. Extremities show a mild amount of swelling in the left arm, and there is no swelling in her legs. ASSESSMENT: Mrs. Schaeffer continues to do quite well after her double valve replacement. Her Coumadin is well regulated. I am not sure I understand the swings in her blood pressure and wonder if it could not be due to taking the medications two to three times a day, and if we could not do better with a once a day medication. I suggested that she might try taking 5 mg of Lisinopril at 10:00 in the morning when her blood pressure seems to be high and see if this smoothed things out. We talked about things that we could do for the arm which would basically be referral to Surgery for their evaluation to see if there is anything that could be done. I did not think there were any good options, and did not feel this necessary unless she has more difficulty. We had a long discussion about the Premarin. She is quite upset about the lumps she gets and would prefer not to take it. I do not have her old chart with me but I would assume that since she did not have any bypass graft surgery that she did not have coronary artery disease, and it would seem that the benefits from the estrogen replacement might be lessened in her. I do not feel strongly about her taking the estrogen, particularly if she is having side effects that are not satisfactory to her. 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 She does not wear a bra because of this. I told her that one option would be to be seen by the plastic surgeons to see if they had any options for her. At this time I think she will wait. PLAN: We will continue on her medication. I suggest that she take the Lisinopril at 5 mg once a day in the late morning, and see how this does for her blood pressure. We set up an appointment for her to see me in four month's time. She will call if she has any questions or problems in the meantime. Emanuel Morgan M.D. Professor, Medicine Division of Cardiology GP /sahra P documented in this encounter Plan of Treatment Not on filedocumented as of this encounter Visit Diagnoses Not on filedocumented in this encounter"
--- OUTSIDE RECORDS SUMMARY | ~2019-09-03 | XMS | Encounter Summary ---
Demographics + + + | Address | [address] | | | [place] [address] | + + + | Home Phone | | + + + | Preferred Language | Unknown | + + + | Marital Status | | + + + | Sabianism Affiliation | VANDA | + + + | Race | White | + + + | Ethnic Group | Not or | + + + Author + + + | Author | [facility] | + + + | Organization | [facility] | + + + | Address | Unknown | + + + | Phone | Unavailable | + + + Support + + + + + | Name | Relationship | Address | Phone | + + + + + | Josue Schaeffer | ECON | [address] | | | | | [place] [address] | | + + + + + | Dariana Dowling | ECON | Unknown | | + + + + + Care Team Providers + +------+ + | Care Caregivers Homecare Name | Role | Phone | + +------+ + PCP | Unavailable | + +------+ + Encounter Details +--------+ + + + + | Date | Type | Department | Care Team | Description | +--------+ + + + + | 10/15/ | Results | Otolaryngology | Mayra Vega MD | | | 2004 | Only | [facility] | [address] | | | | | [address] | [place], | | | | | Mailcode: OP[address] | [place] [address] | | | | | [address] | [phone] | | | | | [place], [place] | | | | | | [address] | | | | | | [phone] | | | +--------+ + + + [...] + +--------+ + + + | CULTURE, SINUS BACTI | Routin | 10/16/2003 | | Results for this | | & GS | e | 2:00 PM | | procedure are in the | | | | PDT | | results section. | + +--------+ + + + documented in this encounter Results CULTURE, SINUS BACTI & GS (10/16/2003 2:00 PM PDT) + + + + + + | Component | Value | Ref Range | Performed | Pathologist | | | | | At | Signature | + + + + + + | SOURCE BODY | Left Maxillary | | | | | SITE | | | | | + + + + + + | CULTURE | Sinus Culture | | | | | RESULT | | | | | | | Source...............: | | | | | | Left Maxillary RLB Gram | | | | | | Stain...........: No | | | | | | Epithelial cells | | | | | | | | | | | | Few PMN's | | | | | | | | | | | | Moderate | | | | | | Small gram positive | | | | | | bacilli | | | | | | | | | | | | Moderate Gram negative | | | | | | bacillus Culture: | | | | | | 2+ Normal | | | | | | Prema | | | | | | | | | | | | Final ID | | | | | | Gram positive | | | | | | growth | | | | | | | | | | | | Prelim ID | | | | | | 2+ Pseudomonas | | | | | | aeruginosa | | | | | | | | | | | | Final ID | | | | | | Pseudomonas species | | | | | | | | | | | | Prelim | | | | | | ID | | | | | | Ps aerugin | | | | | | Ceftazidime | | | | | | S Ciprofloxacin | | | | | | S Gentamicin | | | | | | S | | | | | | Piperacillin | | | | | | S Timentin | | | | | | S Tobramycin | | | | | | S Trimeth/Sulfa | | | | | | R Final | | | | | | Report | | | | + + + + + + + + | Specimen | + + | | + + + + + + + | Performing | Address | City/State/Zipcode | Phone Number | | Organization | | | | + + + + + | [facility] | [address] | [place] [address] | | | LAB-MICRO | | | | + + + + + documented in this encounter Visit Diagnoses Not on filedocumented in this encounter"
--- OUTSIDE RECORDS SUMMARY | ~2019-09-03 | XMS | Encounter Summary ---
Demographics + + + | Address | [address] | | | [place] [address] | + + + | Home Phone | | + + + | Preferred Language | Unknown | + + + | Marital Status | | + + + | Latter Day Affiliation | VANDA | + + + | Race | White | + + + | Ethnic Group | Not or | + + + Author + + + | Author | [facility] | + + + | Organization | [facility] | + + + | Address | Unknown | + + + | Phone | Unavailable | + + + Support + + + + + | Name | Relationship | Address | Phone | + + + + + | Josue Schaeffer | ECON | [address] | | | | | [place] [address] | | + + + + + | Dariana Dowling | ECON | Unknown | | + + + + + Care Team Providers + +------+ + | Care [employer] Income Trading Vice President Name | Role | Phone | + +------+ + PCP | Unavailable | + +------+ + Encounter Details +--------+------+ + + + | Date | Type | Department | Care Team | Description | +--------+------+ + + + | 11/15/ | Lab | Laboratory at [facility] | | Rheumatic Aortic | | 2007 | | [address] | | Stenosis with | | | | Loop Phys[facility]'s | | Insufficiency; | | | | [facility], [facility] floor | | Mitral valve | | | | [place], [place] | | disorder 424.0; | | | | [address] | | Aortic valve | | | | [phone] | | disorder 424.1 | +--------+------+ + + + Social History + +-------+ [...] | + +--------+ + + + | COMPLETE METABOLIC | Routin | 11/16/2007 | Rheumatic Aortic | Results for this | | SET | e | 9:24 AM | Stenosis with | procedure are in the | | (NA,K,CL,CO2,BUN,CRE | | PDT | Insufficiency | results section. | | AT,GLUC,CA,AST,ALT,B | | | Mitral valve | | | DAGMAR TOTAL,ALK | | | disorder 424.0 | | | PHOS,ALB,PROT TOTAL) | | | Aortic valve | | | | | | disorder 424.1 | | + +--------+ + + + | CBC ONLY | Routin | 11/16/2007 | Rheumatic Aortic | Results for this | | | e | 9:24 AM | Stenosis with | procedure are in the | | | | PDT | Insufficiency | results section. | | | | | Mitral valve | | | | | | disorder 424.0 | | + +--------+ + + + | TSH | Routin | 11/16/2007 | | Results for this | | | e | 9:24 AM | | procedure are in the | | | | PDT | | results section. | + +--------+ + + + documented in this encounter Results TSH (11/16/2007 9:24 AM PDT) + +-------+ + + + | Component | Value | Ref Range | Performed | Pathologist | | | | | At | Signature | + +-------+ + + + | TSH | 5.60 | 0.34 - 5.60 | | | | | | uIU/ml | | | + +-------+ + + + + + | Specimen | + + | | + + + + + | Narrative | Performed At | + + + | TSH value falls between the upper end of | | | the euthyroid range and the hypothyroid | | | range. Reference range change | | | effective 11/29/06 [facility] ([facility] [address] [facility]) | | | [facility] [address] | | | [place] [address] | | + + + + + + + + | Performing | Address | City/State/Zipcode | Phone Number | | Organization | | | | + + + + + | [facility] | [address] | [place] [address] | | | LABORATORY | | | | + + + + + COMPLETE METABOLIC SET (NA,K,CL,CO2,BUN,CREAT,GLUC,CA,AST,ALT,BILI TOTAL,ALK PHOS,ALB,PROT TOTAL) (11/16/2007 9:24 AM PDT) + +--------+ + + + | Component | Value | Ref Range | Performed | Pathologist | | | | | At | Signature | + +--------+ + + + | GLUCOSE, | 75 | 60 - 99 mg/dL | [facility] | | | PLASMA | | | DEPARTMENT | | | (LAB) | | | OF | | | | | | PATHOLOGY | | + +--------+ + + + | BUN, PLASMA | 13 | 6 - 20 mg/dL | [facility] | | | (LAB) | | | DEPARTMENT | | | | | | OF | | | | | | PATHOLOGY | | + +--------+ + + + | CREATININE | 0.89 | 0.60 - 1.10 | [facility] | | | PLASMA | | mg/dL | DEPARTMENT | | | (LAB) | | | OF | | | | | | PATHOLOGY | | + +--------+ + + + | TOTAL | 7.3 | 6.1 - 7.9 g/dL | [facility] | | | PROTEIN, | | | DEPARTMENT | | | PLASMA | | | OF | | | (LAB) | | | PATHOLOGY | | + +--------+ + + + | ALBUMIN, | 4.2 | 3.5 - 4.7 g/dL | [facility] | | | PLASMA | | | DEPARTMENT | | | (LAB) | | | OF | | | | | | PATHOLOGY | | + +--------+ + + + | BILIRUBIN | 0.4 | 0.3 - 1.2 mg/dL | [facility] | | | TOTAL | | | DEPARTMENT | | | | | | OF | | | | | | PATHOLOGY | | + +--------+ + + + | ALK PHOS | 51 (L) | 53 - 141 U/L | [facility] | | | | | | DEPARTMENT | | | | | | OF | | | | | | PATHOLOGY | | + +--------+ + + + | AST(SGOT) | 42 (H) | 15 - 41 U/L | [facility] | | | | | | DEPARTMENT | | | | | | OF | | | | | | PATHOLOGY | | + +--------+ + + + | ALT (SGPT) | 22 | 13 - 48 U/L | [facility] | | | | | | DEPARTMENT | | | | | | OF | | | | | | PATHOLOGY | | + +--------+ + + + | CALCIUM, | 9.4 | 8.6 - 10.2 | [facility] | | | PLASMA | | mg/dL | DEPARTMENT | | | (LAB) | | | OF | | | | | | PATHOLOGY | | + +--------+ + + + | SODIUM, | 139 | 134 - 143 | [facility] | | | PLASMA | | mmol/L | DEPARTMENT | | | (LAB) | | | OF | | | | | | PATHOLOGY | | + +--------+ + + + | POTASSIUM, | 3.9 | 3.4 - 5.0 | [facility] | | | PLASMA | | mmol/L | DEPARTMENT | | | (LAB) | | | OF | | | | | | PATHOLOGY | | + +--------+ + + + | CHLORIDE, | 107 | 97 - 108 mmol/L | [facility] | | | PLASMA | | | DEPARTMENT | | | (LAB) | | | OF | | | | | | PATHOLOGY | | + +--------+ + + + | TOTAL CO2, | 27 | 23 - 31 mmol/L | [facility] | | | PLASMA | | | DEPARTMENT | | | (LAB) | | | OF | | | | | | PATHOLOGY | | + +--------+ + + + + + | Specimen | + + | Blood - Blood | + + + + + | Narrative | Performed At | + + + | [id number] Estimated GFR > 60 mL/min/1.73 sq m if non- | [facility] | | Lebanese [id number] Estimated GFR > 60 mL/min/1.73 sq m if | DEPARTMENT OF | | [place] GFR is estimated using the MDRD equation recommended by | PATHOLOGY | | the National Kidney Disease Education Program. Estimated GFR | | | Interpretive Information: <60 mL/min/1.73 sq m Chronic Kidney | | | Disease <15 mL/mon/1.73 sq m Kidney Failure Estimated GFR | | | greater than 60mL/min/1.73 is of limited clinical Value. The MDRD | | | equation is not valid in the following situations: - Patients under | | | 18 years of age - Severe malnutrition or obesity - Vegetarian diet | | | - Rapidly changing kidney function New Creatinine Reference | | | ranges effective 10/12/07. | | + + + + + + + + | Performing | Address | City/State/Zipcode | Phone Number | | Organization | | | | + + + + + | [facility] | [facility] [address] | [place] [address] | | | PATHOLOGY | [address] | | | + + + + + | [facility] | [address] [place] [address] | [place] [address] | | | PATHOLOGY | [address] | | | + + + + + CBC ONLY (11/16/2007 9:24 AM PDT) + +-------+ + + + | Component | Value | Ref Range | Performed | Pathologist | | | | | At | Signature | + +-------+ + + + | WHITE CELL | 6.1 | 4.4 - 11.0 K/cu | [facility] | | | COUNT | | mm | DEPARTMENT | | | | | | OF | | | | | | PATHOLOGY | | + +-------+ + + + | RED CELL | 4.16 | 4.00 - 5.20 | [facility] | | | COUNT | | M/cu mm | DEPARTMENT | | | | | | OF | | | | | | PATHOLOGY | | + +-------+ + + + | HEMOGLOBIN | 12.8 | 12.0 - 16.0 | [facility] | | | | | g/dL | DEPARTMENT | | | | | | OF | | | | | | PATHOLOGY | | + +-------+ + + + | HEMATOCRIT | 37.6 | 36.0 - 46.0 % | [facility] | | | | | | DEPARTMENT | | | | | | OF | | | | | | PATHOLOGY | | + +-------+ + + + | MCV | 90.5 | 80.0 - 96.0 fL | [facility] [...] +-------+ + + + | PLATELET | 189 | 150 - 400 K/cu | [facility] [...] | + + + + + | [facility] | [address] | [place] [address] | | | PATHOLOGY | [address] | | | + + + + + | [facility] | [facility] | [place] [address] | | | PATHOLOGY | [address] | | | + + + + + documented in this encounter Visit Diagnoses + + | Diagnosis | + + | Rheumatic aortic stenosis with insufficiency | + + | Mitral valve disorder 424.0 Mitral valve disorders | + + | Aortic valve disorder 424.1 Aortic valve disorders | + + documented in this encounter"
--- OUTSIDE RECORDS SUMMARY | ~2019-09-03 | XMS | Encounter Summary ---
Demographics + + + | Address | [address] | | | [place] [address] | + + + | Home Phone | | + + + | Preferred Language | Unknown | + + + | Marital Status | | + + + | Shinto Affiliation | VANDA | + + + | Race | White | + + + | Ethnic Group | Not or | + + + Author + + + | Author | [facility] | + + + | Organization | [facility] | + + + | Address | Unknown | + + + | Phone | Unavailable | + + + Support + + + + + | Name | Relationship | Address | Phone | + + + + + | Josue Schaeffer | ECON | [address] | | | | | [place] [address] | | + + + + + | Dariana Dowling | ECON | Unknown | | + + + + + Care Team Providers + +------+ + | Care Machine Cementer Name | Role | Phone | + +------+ + | Josiah Walls MD | PCP | | + +------+ + Encounter Details +--------+ + + + + | Date | Type | Department | Care Team | Description | +--------+ + + + + | 04/01/ | Results | Registration [id number] | | | | 1996 | Only | [address] | | | | | | [address] Mailcode: [id number] | | | | | | [place], [place] | | | | | | [address] | | | | | | [phone] | | | +--------+ + + + [...] | + +--------+ + + + | COAGULATION TESTS 2 | Routin | 04/22/1995 | | Results for this | | | e | 7:02 AM | | procedure are in the | | | | PST | | results section. | + +--------+ + + + | CBC TESTS 2 | Routin | 04/21/1995 | | Results for this | | | e | 7:42 AM | | procedure are in the | | | | PST | | results section. | + +--------+ + + + | COAGULATION TESTS 2 | Routin | 04/21/1995 | | Results for this | | | e | 7:42 AM | | procedure are in the | | | | PST | | results section. | + +--------+ + + + | TRANSFUSION MEDICINE | Routin | 04/20/1995 | | Results for this | | TESTS | e | 11:30 AM | | procedure are in the | | | | PST | | results section. | + +--------+ + + + | CBC TESTS 2 | Routin | 04/20/1995 | | Results for this | | | e | 1:30 AM | | procedure are in the | | | | PST | | results section. | + +--------+ + + + | COAGULATION TESTS 2 | Routin | 04/20/1995 | | Results for this | | | e | 1:30 AM | | procedure are in the | | | | PST | | results section. | + +--------+ + + + | COAGULATION TESTS 2 | Routin | 04/19/1995 | | Results for this | | | e | 10:45 AM | | procedure are in the | | | | PST | | results section. | + +--------+ + + + | CBC TESTS 2 | Routin | 04/19/1995 | | Results for this | | | e | 3:20 AM | | procedure are in the | | | | PST | | results section. | + +--------+ + + + | COAGULATION TESTS 2 | Routin | 04/19/1995 | | Results for this | | | e | 3:20 AM | | procedure are in the | | | | PST | | results section. | + +--------+ + + + | COAGULATION TESTS 2 | Routin | 04/18/1995 | | Results for this | | | e | 6:30 PM | | procedure are in the | | | | PST | | results section. | + +--------+ + + + | CBC TESTS 2 | Routin | 04/18/1995 | | Results for this | | | e | 6:00 AM | | procedure are in the | | | | PST | | results section. | + +--------+ + + + | COAGULATION TESTS 2 | Routin | 04/18/1995 | | Results for this | | | e | 6:00 AM | | procedure are in the | | | | PST | | results section. | + +--------+ + + + | COAGULATION TESTS 2 | Routin | 04/17/1995 | | Results for this | | | e | 6:00 PM | | procedure are in the | | | | PST | | results section. | + +--------+ + + + | COAGULATION TESTS 2 | Routin | 04/17/1995 | | Results for this | | | e | 7:27 AM | | procedure are in the | | | | PST | | results section. | + +--------+ + + + | COAGULATION TESTS 2 | Routin | 04/16/1995 | | Results for this | | | e | 2:00 PM | | procedure are in the | | | | PST | | results section. | + +--------+ + + + | COAGULATION TESTS 2 | Routin | 04/16/1995 | | Results for this | | | e | 6:58 AM | | procedure are in the | | | | PST | | results section. | + +--------+ + + + | CHEMISTRY TESTS 4 | Routin | 04/16/1995 | | Results for this | | | e | 12:01 AM | | procedure are in the | | | | PST | | results section. | + +--------+ + + + | COAGULATION TESTS 2 | Routin | 04/16/1995 | | Results for this | | | e | 12:01 AM | | procedure are in the | | | | PST | | results section. | + +--------+ + + + | COAGULATION TESTS 2 | Routin | 04/15/1995 | | Results for this | | | e | 12:30 PM | | procedure are in the | | | | PST | | results section. | + +--------+ + + + | CBC TESTS 2 | Routin | 04/15/1995 | | Results for this | | | e | 12:00 PM | | procedure are in the | | | | PST | | results section. | + +--------+ + + + | MICROBIOLOGY TESTS 1 | Routin | 04/14/1995 | | Results for this | | | e | 11:30 AM | | procedure are in the | | | | PST | | results section. | + +--------+ + + + | CHEMISTRY TESTS 4 | Routin | 04/13/1995 | | Results for this | | | e | 4:53 PM | | procedure are in the | | | | PST | | results section. | + +--------+ + + + | CBC TESTS 2 | Routin | 04/13/1995 | | Results for this | | | e | 4:53 PM | | procedure are in the | | | | PST | | results section. | + +--------+ + + + | COAGULATION TESTS 2 | Routin | 04/13/1995 | | Results for this | | | e | 4:53 PM | | procedure are in the | | | | PST | | results section. | + +--------+ + + + | CHEMISTRY TESTS 2 | Routin | 04/13/1995 | | Results for this | | | e | 4:53 PM | | procedure are in the | | | | PST | | results section. | + +--------+ + + + | CHEMISTRY TESTS 4 | Routin | 04/13/1995 | | Results for this | | | e | 12:17 PM | | procedure are in the | | | | PST | | results section. | + +--------+ + + + | CBC TESTS 2 | Routin | 04/13/1995 | | Results for this | | | e | 12:17 PM | | procedure are in the | | | | PST | | results section. | + +--------+ + + + | COAGULATION TESTS 2 | Routin | 04/13/1995 | | Results for this | | | e | 12:17 PM | | procedure are in the | | | | PST | | results section. | + +--------+ + + + | CHEMISTRY TESTS 2 | Routin | 04/13/1995 | | Results for this | | | e | 12:17 PM | | procedure are in the | | | | PST | | results section. | + +--------+ + + + | COAGULATION TESTS 2 | Routin | 04/01/1995 | | Results for this | | | e | 12:18 PM | | procedure are in the | | | | PST | | results section. | + +--------+ + + + documented in this encounter Results COAGULATION TESTS 2 04/22/1995 7:02 AM PST) + + + + + + | Component | Value | Ref Range | Performed | Pathologist | | | | | At | Signature | + + + + + + | PROTHROMBIN | 16.7 (H) | SECONDS | | | | TIME | | | | | + + + + + + | PROTIME | 1.4 | SECONDS | | | | RATIO | | | | | + + + + + + | PROTHROMBIN | 2.03 | INR | | | | INR | | | | | + + + + + + | NOTE: | | INR | | | | | INTENSITY:INR=2.5-3.5;PT | | | | | | R=1.6-1.9 | | | | + + + + + + + + | Specimen | + + | | + + + + + + + | Performing | Address | City/State/Zipcode | Phone Number | | Organization | | | | + + + + + | [facility] | [address] | [place] [address] | | | PATHOLOGY | [address] | | | + + + + + COAGULATION TESTS 2 (04/21/1995 7:42 AM PST) + + + + + + | Component | Value | Ref Range | Performed | Pathologist | | | | | At | Signature | + + + + + + | PROTHROMBIN | 17. (H) | SECONDS | | | | TIME | | | | | + + + + + + | PROTIME | 1.4 | SECONDS | | | | RATIO | | | | | + + + + + + | PROTHROMBIN | 2.11 | INR | | | | INR | | | | | + + + + + + | NOTE: | | INR | | | | | INTENSITY:INR=2.5-3.5;PT | | | | | | R=1.6-1.9 | | | | + + + + + + | APTT | 32.6 | SECONDS | | | + + + + + + + + | Specimen | + + | | + + + + + + + | Performing | Address | City/State/Zipcode | Phone Number | | Organization | | | | + + + + + | [facility] | [address] | [place] [address] | | | PATHOLOGY | [address] | | | + + + + + CBC TESTS 2 (04/21/1995 7:42 AM PST) + + + + + + | Component | Value | Ref Range | Performed | Pathologist | | | | | At | Signature | + + + + + + | HEMATOCRIT | 34.8 (L) | % | | | + + + + + + + + | Specimen | + + | | + + + + + + + | Performing | Address | City/State/Zipcode | Phone Number | | Organization | | | | + + + + + | [facility] | [address] | [place] [address] | | | PATHOLOGY | [address] | | | + + + + + TRANSFUSION MEDICINE TESTS (04/20/1995 11:30 AM PST) + + + + + + | Component | Value | Ref Range | Performed | Pathologist | | | | | At | Signature | + + + + + + | ABO GROUP | O | | | | + + + + + + | RH TYPE | POS | | | | + + + + + + | ANTIBODY | NEGATIVE | | | | | SCREEN | | | | | + + + + + + + + | Specimen | + + | | + + + + + + + | Performing | Address | City/State/Zipcode | Phone Number | | Organization | | | | + + + + + | [facility] | [address] | [place] [address] | | | PATHOLOGY | [address] | | | + + + + + COAGULATION TESTS 2 (04/20/1995 1:30 AM PST) + + + + + + | Component | Value | Ref Range | Performed | Pathologist | | | | | At | Signature | + + + + + + | PROTHROMBIN | 15.5 (H) | SECONDS | | | | TIME | | | | | + + + + + + | PROTIME | 1.3 | SECONDS | | | | RATIO | | | | | + + + + + + | PROTHROMBIN | 1.74 | INR | | | | INR | | | | | + + + + + + | NOTE: | | INR | | | | | INTENSITY:INR=2.5-3.5;PT | | | | | | R=1.6-1.9 | | | | + + + + + + | APTT | 30.8 | SECONDS | | | + + + + + + + + | Specimen | + + | | + + + + + + + | Performing | Address | City/State/Zipcode | Phone Number | | Organization | | | | + + + + + | [facility] | [address] | [place] [address] | | | PATHOLOGY | [address] | | | + + + + + CBC TESTS 2 (04/20/1995 1:30 AM PST) + + + + + + | Component | Value | Ref Range | Performed | Pathologist | | | | | At | Signature | + + + + + + | WHITE CELL | 6.6 | K/CU MM | | | | COUNT | | | | | + + + + + + | RED CELL | 3.11 (L) | M/CU MM | | | | COUNT | | | | | + + + + + + | HEMOGLOBIN | 9.7 (L) | GM/DL | | | + + + + + + | HEMATOCRIT | 27.9 (L) | % | | | + + + + + + | MCV | 89.6 | [place] | | | + + + + + + | MCH | 31.1 | PG | | | + + + + + + | MCHC | 34.7 (H) | GM/DL | | | + + + + + + | RDW | 13.6 | % | | | + + + + + + | PLATELET | 263. | K/CU MM | | | | COUNT | | | | | + + + + + + | MPV | 8.4 | [place] | | | + + + + + + + + | Specimen | + + | | + + + + + + + | Performing | Address | City/State/Zipcode | Phone Number | | Organization | | | | + + + + + | [facility] | [address] | [place] [address] | | | PATHOLOGY | [address] | | | + + + + + COAGULATION TESTS 2 (04/19/1995 10:45 AM PST) + + + + + + | Component | Value | Ref Range | Performed | Pathologist | | | | | At | Signature | + + + + + + | PROTHROMBIN | 13.8 (H) | SECONDS | | | | TIME | | | | | + + + + + + | PROTIME | 1.2 | SECONDS | | | | RATIO | | | | | + + + + + + | PROTHROMBIN | 1.38 | INR | | | | INR | | | | | + + + + + + | APTT | 51.9 (H) | SECONDS | | | + + + + + + + + | Specimen | + + | | + + + + + + + | Performing | Address | City/State/Zipcode | Phone Number | | Organization | | | | + + + + + | [facility] | [address] | [place] [address] | | | PATHOLOGY | [address] | | | + + + + + COAGULATION TESTS 2 (04/19/1995 3:20 AM PST) + + + + + + | Component | Value | Ref Range | Performed | Pathologist | | | | | At | Signature | + + + + + + | APTT | 65.2 (*) | SECONDS | | | + + + + + + | APTT | PHONED (*) | SECONDS | | | + + + + + + + + | Specimen | + + | | + + + + + + + | Performing | Address | City/State/Zipcode | Phone Number | | Organization | | | | + + + + + | [facility] | [address] | [place] [address] | | | PATHOLOGY | [address] | | | + + + + + CBC TESTS 2 (04/19/1995 3:20 AM PST) + + + + + + | Component | Value | Ref Range | Performed | Pathologist | | | | | At | Signature | + + + + + + | HEMATOCRIT | 25.8 (L) | % | | | + + + + + + + + | Specimen | + + | | + + + + + + + | Performing | Address | City/State/Zipcode | Phone Number | | Organization | | | | + + + + + | [facility] | [address] | [place] [address] | | | PATHOLOGY | [address] | | | + + + + + COAGULATION TESTS 2 (04/18/1995 6:30 PM PST) + + + + + + | Component | Value | Ref Range | Performed | Pathologist | | | | | At | Signature | + + + + + + | APTT | 52.4 (H) | SECONDS | | | + + + + + + + + | Specimen | + + | | + + + + + + + | Performing | Address | City/State/Zipcode | Phone Number | | Organization | | | | + + + + + | [facility] | [address] | [place] [address] | | | PATHOLOGY | [address] | | | + + + + + COAGULATION TESTS 2 (04/18/1995 6:00 AM PST) + + + + + + | Component | Value | Ref Range | Performed | Pathologist | | | | | At | Signature | + + + + + + | PROTHROMBIN | 13.4 (H) | SECONDS | | | | TIME | | | | | + + + + + + | PROTIME | 1.1 | SECONDS | | | | RATIO | | | | | + + + + + + | PROTHROMBIN | 1.3 | INR | | | | INR | | | | | + + + + + + | APTT | 55.2 (H) | SECONDS | | | + + + + + + + + | Specimen | + + | | + + + + + + + | Performing | Address | City/State/Zipcode | Phone Number | | Organization | | | | + + + + + | [facility] | [address] | [place] [address] | | | PATHOLOGY | [address] | | | + + + + + CBC TESTS 2 (04/18/1995 6:00 AM PST) + + + + + + | Component | Value | Ref Range | Performed | Pathologist | | | | | At | Signature | + + + + + + | HEMATOCRIT | 26.9 (L) | % | | | + + + + + + + + | Specimen | + + | | + + + + + + + | Performing | Address | City/State/Zipcode | Phone Number | | Organization | | | | + + + + + | [facility] | [address] | [place] [address] | | | PATHOLOGY | [address] | | | + + + + + COAGULATION TESTS 2 (04/17/1995 6:00 PM PST) + + + + + + | Component | Value | Ref Range | Performed | Pathologist | | | | | At | Signature | + + + + + + | APTT | 43.2 (H) | SECONDS | | | + + + + + + + + | Specimen | + + | | + + + + + + + | Performing | Address | City/State/Zipcode | Phone Number | | Organization | | | | + + + + + | [facility] | [address] | [place] [address] | | | PATHOLOGY | [address] | | | + + + + + COAGULATION TESTS 2 (04/17/1995 7:27 AM PST) + + + + + + | Component | Value | Ref Range | Performed | Pathologist | | | | | At | Signature | + + + + + + | PROTHROMBIN | 14. (H) | SECONDS | | | | TIME | | | | | + + + + + + | PROTIME | 1.2 | SECONDS | | | | RATIO | | | | | + + + + + + | PROTHROMBIN | 1.42 | INR | | | | INR | | | | | + + + + + + | NOTE: | | INR | | | | | INTENSITY:INR=2.5-3.5;PT | | | | | | R=1.6-1.9 | | | | + + + + + + | APTT | 49.5 (H) | SECONDS | | | + + + + + + + + | Specimen | + + | | + + + + + + + | Performing | Address | City/State/Zipcode | Phone Number | | Organization | | | | + + + + + | [facility] | [address] | [place] [address] | | | PATHOLOGY | [address] | | | + + + + + COAGULATION TESTS 2 (04/16/1995 2:00 PM PST) + + + + + + | Component | Value | Ref Range | Performed | Pathologist | | | | | At | Signature | + + + + + + | APTT | 52.3 (H) | SECONDS | | | + + + + + + + + | Specimen | + + | | + + + + + + + | Performing | Address | City/State/Zipcode | Phone Number | | Organization | | | | + + + + + | [facility] | [address] | [place] [address] | | | PATHOLOGY | [address] | | | + + + + + COAGULATION TESTS 2 (04/16/1995 6:58 AM PST) + + + + + + | Component | Value | Ref Range | Performed | Pathologist | | | | | At | Signature | + + + + + + | PROTHROMBIN | 13.8 (H) | SECONDS | | | | TIME | | | | | + + + + + + | PROTIME | 1.2 | SECONDS | | | | RATIO | | | | | + + + + + + | PROTHROMBIN | 1.38 | INR | | | | INR | | | | | + + + + + + | APTT | 51.9 (H) | SECONDS | | | + + + + + + + + | Specimen | + + | | + + + + + + + | Performing | Address | City/State/Zipcode | Phone Number | | Organization | | | | + + + + + | [facility] | [address] | [place] [address] | | | PATHOLOGY | [address] | | | + + + + + CHEMISTRY TESTS 4 (04/16/1995 12:01 AM PST) + + + + + + | Component | Value | Ref Range | Performed | Pathologist | | | | | At | Signature | + + + + + + | SODIUM, | 136. | mmol/l | | | | PLASMA | | | | | | (LAB) | | | | | + + + + + + | POTASSIUM, | 4. | mmol/l | | | | PLASMA | | | | | | (LAB) | | | | | + + + + + + + + | Specimen | + + | | + + + + + + + | Performing | Address | City/State/Zipcode | Phone Number | | Organization | | | | + + + + + | [facility] | [address] | [place] [address] | | | PATHOLOGY | [address] | | | + + + + + COAGULATION TESTS 2 (04/16/1995 12:01 AM PST) + + + + + + | Component | Value | Ref Range | Performed | Pathologist | | | | | At | Signature | + + + + + + | APTT | 51.9 (H) | SECONDS | | | + + + + + + + + | Specimen | + + | | + + + + + + + | Performing | Address | City/State/Zipcode | Phone Number | | Organization | | | | + + + + + | [facility] | [address] | [place] [address] | | | PATHOLOGY | [address] | | | + + + + + COAGULATION TESTS 2 (04/15/1995 12:30 PM PST) + + + + + + | Component | Value | Ref Range | Performed | Pathologist | | | | | At | Signature | + + + + + + | PROTHROMBIN | 14.4 (H) | SECONDS | | | | TIME | | | | | + + + + + + | PROTIME | 1.2 | SECONDS | | | | RATIO | | | | | + + + + + + | PROTHROMBIN | 1.5 | INR | | | | INR | | | | | + + + + + + | NOTE: | | INR | | | | | INTENSITY:INR=2.5-3.5;PT | | | | | | R=1.6-1.9 | | | | + + + + + + | APTT | 112.8 (*) | SECONDS | | | + + + + + + | APTT | CHECKED AND PHONED (*) | SECONDS | | | + + + + + + + + | Specimen | + + | | + + + + + + + | Performing | Address | City/State/Zipcode | Phone Number | | Organization | | | | + + + + + | [facility] | [address] | [place] [address] | | | PATHOLOGY | [address] | | | + + + + + CBC TESTS 2 (04/15/1995 12:00 PM PST) + + + + + + | Component | Value | Ref Range | Performed | Pathologist | | | | | At | Signature | + + + + + + | HEMATOCRIT | 28.2 (L) | % | | | + + + + + + + + | Specimen | + + | | + + + + + + + | Performing | Address | City/State/Zipcode | Phone Number | | Organization | | | | + + + + + | [facility] | [address] | [place] [address] | | | PATHOLOGY | [address] | | | + + + + + MICROBIOLOGY TESTS 1 (04/14/1995 11:30 AM PST) + + + + + + | Component | Value | Ref Range | Performed | Pathologist | | | | | At | Signature | + + + + + + | CULTURE | Gram Smear:OrgA NO | | | | | RESULT | ORGANISMS SEEN | | | | | | WBC 2+ | | | | | | Epi | | | | | | 3+Diagnosis | | | | | | SINUSITISTest | | | | | | Ordered EXUDATE | | | | | | CULTUREOrdering Loc | | | | | | 9CSpec Set Up Date | | | | | | 04/13Spec Set Up Time | | | | | | 13:51Specimen Type | | | | | | TISSUE MAXILLARY | | | | | | SINUSSource Body Site | | | | | | LEFT MAXILLARY | | | | | | SINUSReport Status | | | | | | FINALCulture Result | | | | | | GROWTHDate Of | | | | | | Final Re | | | | | | [id number] 01ISOLATE | | | | | | 01Final Isolate | | | | | | 1+ GRAM POS COCCI1+ | | | | | | STAPHYLOCOCCUS COAGULASE | | | | | | NEGATIVEISOLATE # | | | | | | 01Cephalothin | | | | | | | | | | | | SCiprofloxacin | | | | | | SClindamycin | | | | | | SErythromycin | | | | | | SGentamicin | | | | | | SImipenem | | | | | | SOxacillin | | | | | | SPenicillin | | | | | | RTrimethoprimSulf | | | | | | SVancomycin | | | | | | S | | | | + + + + + + + + | Specimen | + + | | + + + + + + + | Performing | Address | City/State/Zipcode | Phone Number | | Organization | | | | + + + + + | [facility] | [address] | [place] [address] | | | PATHOLOGY | [address] | | | + + + + + CHEMISTRY TESTS 2 (04/13/1995 4:53 PM PST) + + + + + + | Component | Value | Ref Range | Performed | Pathologist | | | | | At | Signature | + + + + + + | CHOLESTEROL | 189. | mg/dL | | | | (LAB) | | | | | + + + + + + + + | Specimen | + + | | + + + + + + + | Performing | Address | City/State/Zipcode | Phone Number | | Organization | | | | + + + + + | [facility] | [address] | [place] [address] | | | PATHOLOGY | [address] | | | + + + + + CHEMISTRY TESTS 4 (04/13/1995 4:53 PM PST) + + + + + + | Component | Value | Ref Range | Performed | Pathologist | | | | | At | Signature | + + + + + + | CHEMISTRY | SPECIMEN MODERATELY | | | | | BATTERY, | LIPEMIC | | | | | HEADER | | | | | + + + + + + | SODIUM, | 138. | mmol/l | | | | PLASMA | | | | | | (LAB) | | | | | + + + + + + | POTASSIUM, | 4.1 | mmol/l | | | | PLASMA | | | | | | (LAB) | | | | | + + + + + + | CHLORIDE, | 104. | mmol/l | | | | PLASMA | | | | | | (LAB) | | | | | + + + + + + | TOTAL CO2, | 30. (H) | mmol/l | | | | PLASMA | | | | | | (LAB) | | | | | + + + + + + | BUN, PLASMA | 19. | mg/dL | | | | (LAB) | | | | | + + + + + + | CREATININE | 1. | mg/dL | | | | PLASMA | | | | | | (LAB) | | | | | + + + + + + | GLUCOSE, | 158. (H) | mg/dL | | | | PLASMA | | | | | | (LAB) | | | | | + + + + + + | CALCIUM, | 9.7 | mg/dL | | | | PLASMA | | | | | | (LAB) | | | | | + + + + + + | MAGNESIUM,P | 2.1 | mg/dL | | | | LASMA | | | | | + + + + + + | PHOSPHORUS, | 3.2 | mg/dL | | | | PLASMA | | | | | | (LAB) | | | | | + + + + + + | URIC ACID, | 4.7 | mg/dL | | | | PLASMA | | | | | | (LAB) | | | | | + + + + + + | AST(SGOT) | 24. | U/L | | | + + + + + + | ALT (SGPT) | 16. | U/L | | | + + + + + + | ALK PHOS | 78. | U/L | | | + + + + + + | LD TOTAL, | 329. (H) | U/L | | | | PLASMA | | | | | + + + + + + | BILIRUBIN | 0.1 | mg/dL | | | | DIRECT | | | | | + + + + + + | BILIRUBIN | 0.3 | mg/dL | | | | TOTAL | | | | | + + + + + + | BILIRUBIN | ASSAYED ON CX7 | mg/dL | | | | TOTAL | | | | | + + + + + + | TOTAL | 7.4 | GM/DL | | | | PROTEIN, | | | | | | PLASMA | | | | | | (LAB) | | | | | + + + + + + | ALBUMIN, | 4.2 | GM/DL | | | | PLASMA | | | | | | (LAB) | | | | | + + + + + + + + | Specimen | + + | | + + + + + + + | Performing | Address | City/State/Zipcode | Phone Number | | Organization | | | | + + + + + | [facility] | [phone] | [place] [address] | | | PATHOLOGY | [address] | | | + + + + + COAGULATION TESTS 2 (04/13/1995 4:53 PM PST) + + + + + + | Component | Value | Ref Range | Performed | Pathologist | | | | | At | Signature | + + + + + + | PROTHROMBIN | 12.7 | SECONDS | | | | TIME | | | | | + + + + + + | PROTIME | 1.1 | SECONDS | | | | RATIO | | | | | + + + + + + | PROTHROMBIN | 1.16 | INR | | | | INR | | | | | + + + + + + | APTT | 27.4 | SECONDS | | | + + + + + + + + | Specimen | + + | | + + + + + + + | Performing | Address | City/State/Zipcode | Phone Number | | Organization | | | | + + + + + | [facility] | [phone] | [place] [address] | | | PATHOLOGY | [address] | | | + + + + + CBC TESTS 2 (04/13/1995 4:53 PM PST) + + + + + + | Component | Value | Ref Range | Performed | Pathologist | | | | | At | Signature | + + + + + + | WHITE CELL | 6.6 | K/CU MM | | | | COUNT | | | | | + + + + + + | RED CELL | 4.06 | M/CU MM | | | | COUNT | | | | | + + + + + + | HEMOGLOBIN | 12.5 | GM/DL | | | + + + + + + | HEMATOCRIT | 36. (L) | % | | | + + + + + + | MCV | 88.5 | [place] | | | + + + + + + | MCH | 30.8 | PG | | | + + + + + + | MCHC | 34.8 (H) | GM/DL | | | + + + + + + | RDW | 13.1 | % | | | + + + + + + | PLATELET | 186. | K/CU MM | | | | COUNT | | | | | + + + + + + | MPV | 8.5 | [place] | | | + + + + + + + + | Specimen | + + | | + + + + + + + | Performing | Address | City/State/Zipcode | Phone Number | | Organization | | | | + + + + + | [facility] | [phone] | [place] [address] | | | PATHOLOGY | [address] | | | + + + + + CHEMISTRY TESTS 2 (04/13/1995 12:17 PM PST) + + + + + + | Component | Value | Ref Range | Performed | Pathologist | | | | | At | Signature | + + + + + + | CHOLESTEROL | 194. | mg/dL | | | | (LAB) | | | | | + + + + + + + + | Specimen | + + | | + + + + + + + | Performing | Address | City/State/Zipcode | Phone Number | | Organization | | | | + + + + + | [facility] | [phone] | [place] [address] | | | PATHOLOGY | [address] | | | + + + + + CHEMISTRY TESTS 4 (04/13/1995 12:17 PM PST) + + + + + + | Component | Value | Ref Range | Performed | Pathologist | | | | | At | Signature | + + + + + + | SODIUM, | 139. | mmol/l | | | | PLASMA | | | | | | (LAB) | | | | | + + + + + + | POTASSIUM, | 4. | mmol/l | | | | PLASMA | | | | | | (LAB) | | | | | + + + + + + | CHLORIDE, | 104. | mmol/l | | | | PLASMA | | | | | | (LAB) | | | | | + + + + + + | TOTAL CO2, | 30. (H) | mmol/l | | | | PLASMA | | | | | | (LAB) | | | | | + + + + + + | BUN, PLASMA | 17. | mg/dL | | | | (LAB) | | | | | + + + + + + | CREATININE | 1. | mg/dL | | | | PLASMA | | | | | | (LAB) | | | | | + + + + + + | GLUCOSE, | 97. | mg/dL | | | | PLASMA | | | | | | (LAB) | | | | | + + + + + + | CALCIUM, | 10. | mg/dL | | | | PLASMA | | | | | | (LAB) | | | | | + + + + + + | MAGNESIUM,P | 2.1 | mg/dL | | | | LASMA | | | | | + + + + + + | PHOSPHORUS, | 3.7 | mg/dL | | | | PLASMA | | | | | | (LAB) | | | | | + + + + + + | URIC ACID, | 4.7 | mg/dL | | | | PLASMA | | | | | | (LAB) | | | | | + + + + + + | AST(SGOT) | 25. | U/L | | | + + + + + + | ALT (SGPT) | 18. | U/L | | | + + + + + + | ALK PHOS | 62. | U/L | | | + + + + + + | LD TOTAL, | 329. (H) | U/L | | | | PLASMA | | | | | + + + + + + | BILIRUBIN | 0.1 | mg/dL | | | | DIRECT | | | | | + + + + + + | BILIRUBIN | 0.4 | mg/dL | | | | TOTAL | | | | | + + + + + + | TOTAL | 7.4 | GM/DL | | | | PROTEIN, | | | | | | PLASMA | | | | | | (LAB) | | | | | + + + + + + | ALBUMIN, | 4.2 | GM/DL | | | | PLASMA | | | | | | (LAB) | | | | | + + + + + + + + | Specimen | + + | | + + + + + + + | Performing | Address | City/State/Zipcode | Phone Number | | Organization | | | | + + + + + | [facility] | [address] | [place] [address] | | | PATHOLOGY | [address] | | | + + + + + COAGULATION TESTS 2 (04/13/1995 12:17 PM PST) + + + + + + | Component | Value | Ref Range | Performed | Pathologist | | | | | At | Signature | + + + + + + | PROTHROMBIN | 12.5 | SECONDS | | | | TIME | | | | | + + + + + + | PROTIME | 1.1 | SECONDS | | | | RATIO | | | | | + + + + + + | PROTHROMBIN | 1.12 | INR | | | | INR | | | | | + + + + + + | APTT | 28.1 | SECONDS | | | + + + + + + + + | Specimen | + + | | + + + + + + + | Performing | Address | City/State/Zipcode | Phone Number | | Organization | | | | + + + + + | [facility] | [address] | [place] [address] | | | PATHOLOGY | [address] | | | + + + + + CBC TESTS 2 (04/13/1995 12:17 PM PST) + + + + + + | Component | Value | Ref Range | Performed | Pathologist | | | | | At | Signature | + + + + + + | WHITE CELL | 7.4 | K/CU MM | | | | COUNT | | | | | + + + + + + | RED CELL | 4.17 | M/CU MM | | | | COUNT | | | | | + + + + + + | HEMOGLOBIN | 12.9 | GM/DL | | | + + + + + + | HEMATOCRIT | 36.9 (L) | % | | | + + + + + + | MCV | 88.6 | [place] | | | + + + + + + | MCH | 31. | PG | | | + + + + + + | MCHC | 35. (H) | GM/DL | | | + + + + + + | RDW | 13.1 | % | | | + + + + + + | PLATELET | 187. | K/CU MM | | | | COUNT | | | | | + + + + + + | MPV | 8. | [place] | | | + + + + + + + + | Specimen | + + | | + + + + + + + | Performing | Address | City/State/Zipcode | Phone Number | | Organization | | | | + + + + + | [facility] | [address] | [place] [address] | | | PATHOLOGY | [address] | | | + + + + + COAGULATION TESTS 2 (04/01/1995 12:18 PM PST) + + + + + + | Component | Value | Ref Range | Performed | Pathologist | | | | | At | Signature | + + + + + + | PROTHROMBIN | 16.4 (H) | SECONDS | | | | TIME | | | | | + + + + + + | PROTIME | 1.4 | SECONDS | | | | RATIO | | | | | + + + + + + | PROTHROMBIN | 1.96 | INR | | | | INR | | | | | + + + + + + | NOTE: | | INR | | | | | INTENSITY:INR=2.5-3.5;PT | | | | | | R=1.6-1.9 | | | | + + + + + + + + | Specimen | + + | | + + + + + + + | Performing | Address | City/State/Zipcode | Phone Number | | Organization | | | | + + + + + | [facility] | [address] | [place] [address] | | | PATHOLOGY | [address] | | | + + + + + documented in this encounter Visit Diagnoses Not on filedocumented in this encounter"
--- OUTSIDE RECORDS SUMMARY | ~2019-09-03 | XMS | Encounter Summary ---
Demographics + + + | Address | [address] | | | [place] [address] | + + + | Home Phone | | + + + | Preferred Language | Unknown | + + + | Marital Status | | + + + | Adventism Affiliation | VANDA | + + + | Race | White | + + + | Ethnic Group | Not or | + + + Author + + + | Author | [facility] | + + + | Organization | [facility] | + + + | Address | Unknown | + + + | Phone | Unavailable | + + + Support + + + + + | Name | Relationship | Address | Phone | + + + + + | Josue Schaeffer | ECON | [address] | | | | | [place] [address] | | + + + + + | Dariana Dowling | ECON | Unknown | | + + + + + Care Team Providers + +------+ + | Care It Service Technician Name | Role | Phone | + +------+ + PCP | Unavailable | + +------+ + Encounter Details +--------+ + + + + | Date | Type | Department | Care Team | Description | +--------+ + + + + | 05/03/ | Office | General Internal | Note, Outpatient | Progress Note | | 1995 | Visit-Trans | Medicine [address] | Clinic | | | | yovani | [address] | | | | | | Mailcode: L475 | | | | | | Outpatient Clinic | | | | | | [facility], [address] | | | | | | [employer], [place] | | | | | | [address] | | | | | | [phone] | | | +--------+ + + + [...] as of this encounter Progress Notes Interface, Cadastral Engineer In - 05/09/2006 5:10 AM PDT CLINIC DATE: 05/04/95 OTOLARYNGOLOGY CLINIC SUBJECTIVE: Mrs. Schaeffer actually has done fairly well until just the last couple of days when she has had a lot of increased mucopurulent secretions and has had some mild headache. Otherwise, she has been doing fairly without any bleeding. PHYSICAL EXAMINATION: The patient was sprayed with ephedrine and Xylocaine solution. In both ethmoid blocks the patient has large, thick, hard, blood clots which were removed with some difficulty and a considerable amount of discomfort. Underneath this was the Oxycel cotton that had been used at the time of surgery to control bleeding. I was able to get most of it out although a little bit remained in the roof of both ethmoid blocks and in the sphenoid on the right side. With a 30 degree telescope we could see the area and it seemed to be healing nicely with just the usual edema. The windows into the maxillary sinuses are nicely opened. There was no active purulence. IMPRESSION: Good postop course. RECOMMENDATIONS: I recommended that we put the patient on Septra-DS 1 tablet b.i.d. for a month to prevent recurrent infections. She is to return to see me in 2 weeks. I started her on saline irrigations gently. Maxwell Garcia M.D. Professor, Otolaryngology Head and Neck Surgery JS:[email or web address] cc: JACK BENOIT MD [facility] DEBI CHANDLER MD [address] [place] [id number] documented in this encounter Plan of Treatment Not on filedocumented as of this encounter Visit Diagnoses Not on filedocumented in this encounter"
--- OUTSIDE RECORDS SUMMARY | ~2019-09-03 | XMS | Encounter Summary ---
Demographics + + + | Address | [address] | | | [place] [address] | + + + | Home Phone | | + + + | Preferred Language | Unknown | + + + | Marital Status | | + + + | Religion Affiliation | VANDA | + + + | Race | White | + + + | Ethnic Group | Not or | + + + Author + + + | Author | [facility] | + + + | Organization | [facility] | + + + | Address | Unknown | + + + | Phone | Unavailable | + + + Support + + + + + | Name | Relationship | Address | Phone | + + + + + | Josue Schaeffer | ECON | [address] | | | | | [place] [address] | | + + + + + | Dariana Dowling | ECON | Unknown | | + + + + + Care Team Providers + +------+ + | Care Ship Boss Name | Role | Phone | + +------+ + PCP | Unavailable | + +------+ + Encounter Details +--------+ + + + + | Date | Type | Department | Care Team | Description | +--------+ + + + + | 10/05/ | Documentati | Cardiology CAROL at | Emanuel Morgan, | | | 2006 | on | [address] | | | | | | [facility] | | | | | | [facility], | | | | | | Building | | | | | | Floor [place], [place] | | | | | | [address] | | | | | | [phone] | | | +--------+ + + + [...]
--- OUTSIDE RECORDS SUMMARY | ~2019-09-03 | XMS | Encounter Summary ---
Demographics + + + | Address | [address] | | | [place] [address] | + + + | Home Phone | | + + + | Preferred Language | Unknown | + + + | Marital Status | | + + + | Samaritan Affiliation | VANDA | + + + | Race | White | + + + | Ethnic Group | Not or | + + + Author + + + | Author | [facility] | + + + | Organization | [facility] | + + + | Address | Unknown | + + + | Phone | Unavailable | + + + Support + + + + + | Name | Relationship | Address | Phone | + + + + + | Josue Schaeffer | ECON | [address] | | | | | [place] [address] | | + + + + + | Dariana Dowling | ECON | Unknown | | + + + + + Care Team Providers + +------+ + | Care [place] Actor Name | Role | Phone | + +------+ + PCP | Unavailable | + +------+ + Reason for Visit + + + | Reason | Comments | + + + | Infection | | + + + Encounter Details +--------+ + + + + | Date | Type | Department | Care Team | Description | +--------+ + + + + | 01/16/ | Telephone | Otolaryngology | Mayra Vega MD | Infection | | 2005 | | Sinus Services [address] | [address] | | | | | [address] | [facility], | | | | | Mailcode: OP01 | [place] [address] | | | | | [facility] | [phone] | | | | | [place], [place] | | | | | | [address] | | | | | | [phone] | | | +--------+ + + + [...]
--- OUTSIDE RECORDS SUMMARY | ~2019-09-03 | XMS | Encounter Summary ---
Demographics + + + | Address | [address] | | | [place] [address] | + + + | Home Phone | | + + + | Preferred Language | Unknown | + + + | Marital Status | Single | + + + | Mormonism Affiliation | 1064 | + + + | Race | Unknown | + + + | Ethnic Group | Unknown | + + + Author + + + | Author | [facility] [place] | | | and [place] | + + + | Organization | [facility] [place] | | | and [place] | [...] Team Providers + +------+ + | Care Medication Specialist Name | Role | Phone | [...] | adjustment | [address] | [address] | | | | | and | [place] | [place], | | | | | management | [place], [place] | [place] [address] | | | | | of other | [address] | Phone: | | | | | part of | Phone: | [phone] | | | | | cardiac | [phone] | Fax: | | | | | pacemaker | Fax: | [phone] | | | | | Atherosclero | [phone] | | | | | | tic heart | | | | | | | disease of | | | | | | | yocha dehe | | | | | | | [...] + + | 07/25/ | Office | [facility] | Sourav Martinez | Pacemaker | | 2019 | Visit | CARDIOLOGY [address] | MD Christopher [address] | reprogramming/check | | | | [address] [place], | [address] [place] | (Primary Dx); | | | | [place] [address] | [place] [address] | Pacemaker, Dual | | | | [phone] | [phone] | Chamber [employer] | | | | [...] [facility] mitral valve on 12/10/94 at [facility] by Ihsan guan MD. she states that [...] mitral regurgitation cannot be ruled out. At [facility] Echocardiogram on 10/18/2001 shows normal left ventricular size and systolic function, aorti c and mitral mechanical prosthesis with good hemodynamic function; disc motion is present. Prudencio Morgan M.D. at [facility] Echocardiogram on 02/06/11 shows Left ventricular size [...] for comparison. By Bandar Tucker MD at [facility]. Echocardiogram on 01/13/12 shows, the study was [...] significant change. By Bandar Tucker MD at [facility] Echocardiogram on 12/29/12 shows the cardiac rhythm [...] (+/- 5). By Markie Mathur MD at [facility] ASSESSMENT: 1. History of aortic and mitral [...] further work-up and management. ISourav MD, PhD, [facility] personally performed the services described in this documentation. All medical record entries made by the clinical program support assistant were at my dir ection. I have reviewed the documentation and discharge instructions (if appropriate), and edited the documentation if necessary. I agree that the record reflects my personal performa nce and is accurate and complete for visit date 07/26/2019. Portions of this report were transcribed using voice recognition software. Every effort wa s made to ensure accuracy; however, inadvertent computerized medical videographer errors may be pre sent. Electronically signed [...] GODWIN | | | | | | ([id number]) on 07/28/2019 | | | | | [...]
--- OUTSIDE RECORDS SUMMARY | ~2019-09-03 | XMS | Encounter Summary ---
Demographics + + + | Address | [address] | | | [place] [address] | + + + | Home Phone | | + + + | Preferred Language | Unknown | + + + | Marital Status | Single | + + + | Pentecostalism Affiliation | 1064 | + + + | Race | Unknown | + + + | Ethnic Group | Unknown | + + + Author + + + | Author | [facility] [place] | | | and [place] | + + + | Organization | [facility] [place] | | | and [place] [...] Team Providers + +------+ + | Care Salvager Helper Name | Role | Phone | + +------+ + PCP | Unavailable | + +------+ + Encounter Details +--------+ + + + + | Date | Type | Department | Care Team | Description | +--------+ + + + + | 06/13/ | [facility] | [facility] | Dejon Mcgill | | | 2004 | Encounter | MED CTR XRAY [address] | MD Francisco Javier [address] | | | | | [place] | [place], [place] | | | | | [place] [address] | [address] | | | | | [phone] | | | +--------+ + + + [...]
--- OUTSIDE RECORDS SUMMARY | ~2019-09-03 | XMS | Encounter Summary ---
Demographics + + + | Address | [address] | | | [place] [address] | + + + | Home Phone [...] + + + + + | Josue Miles | ECON | [address] | | | | | [place] [address] | | + + + + + | Dariana Dowling | ECON | Unknown | | + + + + + Care Team Providers + +------+ + | Care Commercial Hvac Technician Name | Role | Phone | + +------+ + PCP | Unavailable | + +------+ + Encounter Details +--------+ + + + + | Date | Type | Department | Care Team | Description | +--------+ + + + + | 05/20/ | Transcribed | | Dictation, Other | Transcribed | | 2000 | | | | | +--------+ + [...] as of this encounter Progress Notes Interface, Home Health Nurse In - 12/05/2005 5:[address] [address] or May 20, 2000 Shaka Newby M.D. [facility] [address] [place] [id number] RE: CONNOR MILES MR #: [id number] Dear Dr. Newby: I had the pleasure of meeting the patient yesterday in the [facility] Endocrinology Clinic at the request of Dr. Emanuel Morgan, her auto service representative. The patient was being seen by Dr. Morgan with complaints of fever and shaking, for which Dr. Morgan's evaluation included thyroid function tests. These came back markedly abnormal with a total T4 elevated at 21.5 (normals up to 12). Dr. Morgan did immediately give her a dose of a beta fide, and when I saw her, despite this, she remained tremulous. She gave us a clear history and signs of hyperthyroidism including increased bowel movements, palpitations, tremors, difficulty sleeping, irritability, profound heat intolerance, and some peripheral edema. Her examination was significant for a mildly enlarged thyroid gland, estimated at 40 mg which is fairly diffuse in characteristic. She had no eye complaints nor eye findings, however, with a family history of thyroid disease in a sister and the diffuse nature of her thyroid enlargement, I think her most likely diagnosis is Graves' disease. I discussed various treatment options with her including antithyroid medications to try to achieve a remission or radioactive iodine therapy. She expressed some interest in trying and achieving remission with medications, and we will discuss this further. I would like to obtain a radioactive iodine uptake and scan to confirm the diagnosis of Graves' disease. She is leaving early next week for vacation, and therefore, I have planned this for next month. In the meantime, I have started her on Tapazole 30 mg p.o. q.d. and continued her beta fide for symptomatic relief until the Tapazole lowers her thyroid hormone levels. She is going to obtain labs including a free T4 and TSH weekly for her followup appointment with me to help adjust the Tapazole, and I will be trying to coordinate her nuclear medicine I123 uptake and scan with that appointment such that she does not have to make an additional trip. I have asked her to discontinue her Tapazole 1 week prior to that uptake and scan to ensure that we will get accurate results on it. It has been a pleasure being allowed to participate in the care of this patient with regards to her hyperthyroidism most likely secondary to Graves' disease. If you have any questions regarding my evaluation here today, please do not hesitate to contact me here at [facility] at [phone]. Sincerely, Oralia Self M.D. Employee Relations Advisor of Endocrinology [employer] / MATTHIAS [id number] / [id number] / [id number] / cc: Emanuel Morgan M.D. [facility]-62 [id number] signed by Interface, Home Health Nurse In at 12/05/2005 5:11 AM PDTdocume nted in this encounter Plan of Treatment Not on filedocumented as of this encounter Visit Diagnoses Not on filedocumented in this encounter"
--- OUTSIDE RECORDS SUMMARY | ~2019-09-03 | XMS | Encounter Summary ---
Demographics + + + | Address | [address] | | | [place] [address] | + + + | Home Phone | | + + + | Preferred Language | Unknown | + + + | Marital Status | | + + + | Cheondoism Affiliation | VANDA | + + + | Race | White | + + + | Ethnic Group | Not or | + + + Author + + + | Author | [facility] | + + + | Organization | [facility] | + + + | Address | Unknown | + + + | Phone | Unavailable | + + + Support + + + + + | Name | Relationship | Address | Phone | + + + + + | Josue Schaeffer | ECON | [address] | | | | | [place] [address] | | + + + + + | Dariana Dowling | ECON | Unknown | | + + + + + Care Team Providers + +------+ + | Care Massage Operator Name | Role | Phone | + +------+ + | Enoc Lee NP | PCP | | + +------+ + Encounter Details +--------+ + + + + | Date | Type | Department | Care Team | Description | +--------+ + + + + | 12/01/ | Ancillary | Registration [id number] | | | | [address] | [address] | [address] | | | | | [address] | [address] Mailcode: [address] | | | | | | [place], [place] | | | | | | [address] | | | | | | [phone] | | | +--------+ + + + [...]
--- OUTSIDE RECORDS SUMMARY | ~2019-09-03 | XMS | Encounter Summary ---
Demographics + + + | Address | [address] | | | [place] [address] | + + + | Home Phone | | + + + | Preferred Language | Unknown | + + + | Marital Status | | + + + | Latter-Day Affiliation | VANDA | + + + [...] Josue Schaeffer | ECON | [address] | | | | | [place] [address] | | + + + + + | Dariana Dowling | ECON | Unknown | | + + + + + Care Team Providers + +------+ + | Care Grade Teacher Name | Role | Phone | + +------+ + PCP | Unavailable | + +------+ + Reason for Visit + + + | Reason | Comments | + + + | Follow-up visit | Pt states c/o sore in nasal that won't go away with bactroban. | + + + Office Visit - E/M Services (Routine) +--------+--------+ + + + + | Status | Reason | Specialty | Diagnoses / | Referred By | Referred To | | | | | Procedures | Contact | Contact | +--------+--------+ + + + + | Closed | | Otolaryngolog | Diagnoses | Kirit, | Jose, | | | | y | chronic | Dejon Boogie, | Maurice Farooq MD | | | | | sinusitis | [facility] | [address] | | | | | Procedures | [facility] | [facility] | | | | | nasal | URGENT CARE | [place], [place] | | | | | endoscopy | [address] | [address] | | | | | | [place] | Phone: | | | | | | [place], | [phone] | | | | | | [place] [address] | Fax: | | | | | | Phone: | [phone] | | | | | | [phone] | | | | | | | Fax: | | | | | | | [phone] | | +--------+--------+ + + + + Encounter Details +--------+---------+ + + + | Date | Type | Department | Care Team | Description | +--------+---------+ + + + | 10/12/ | Office | [facility] | Maurice Garcia, | Chronic Ethmoidal | | 2006 | Visit | Center at [facility] [address] | MD [address] | Sinusitis; Chronic | | | | [facility] | [place], [place] | Maxillary Sinusitis; | | | | for Health and | [address] | Other Diseases of | | | | [facility] 1, | [phone] | Nasal Cavity and | | | | 5th Floor | | Sinuses | | | | [place], [place] | | | | | | [address] | | | | | | [phone] | | | +--------+---------+ + + + [...] documented as of this encounter Progress Notes Bran Kincaid, Poornima Correa - 10/12/2006 2:03 PM PDTFormatting of this note might be differe nt from the original. HISTORY: Maria Alejandra Schaeffer is a 66 y.o. female who presents to the [facility] for fo llow up of Chronic rhinosinusitis. She does have some epistaxis on the right side and nasal obstruction that improves when she pops a cartilage in the L side of her nose out. She is a llergic to tape and so has not tried breathe right strips. 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 Current outpatient prescriptions Medication Sig Sertraline HCl (ZOLOFT) 50 mg Oral Tablet take 1 tab daily Fluticasone Propionate (FLONASE) 50 mcg/Actuation Nasal Aerosol, Roulette 2 sprays in am a nd pm Fluticasone-Salmeterol (ADVAIR DISKUS) 500-50 mcg/Dose Inhalation Disk with Device twic e daily Lisinopril 5 mg Oral Tablet once daily in morning Levothyroxine Sodium 25 mcg Oral Tablet take 1 tab in morning Vitamin E 400 unit Oral Tablet take 1 tab daily VITAMIN B COMPLEX OR 1200 mg daily Lecithin 1,200 mg Oral Tablet, Chewable once daily Garlic 150 mg Oral Tablet take 1 tab daily POTASSIUM CHLORIDE SR 10 MEQ CAP take 1 tab daily with food LASIX 20 MG TAB take 1 tablet (20mg) by oral route once daily WARFARIN SODIUM 5 MG ORAL TAB take as directed by anticoagulation clinic No past medical history on file. Review of Systems: General: No constitutional symptoms of fevers, fatigue, chills, weight loss or sweats. Eyes: No changes in vision loss, double vision, eye pain, eye irritation, discharge, blurr ed vision or light sensitivity. Ears, Nose and Throat: No hearing loss, ringing in the ears, ear discharge, earache, noseb rubia, nasal congestion, difficulty swallowing, hoarseness or sore throat. Respiratory: No shortness of breath, coughing up blood, excessive sputum, cough, chest dis comfort or wheezing. Musculoskeletal: No joint pain, swelling, stiffness, back pain, arthritis, muscle aches, m uscle cramps or loss of strength. Cardiovascular: No chest pain, skipping beats, lightheadedness, difficulty breathing uprig ht or lying down, fatigue, near fainting or fainting, palpitations, weight gain, edema, leg cramps. Gastrointestinal: No loss of appetite, excessive appetite, indigestion, vomiting, nausea, constipation, gas, abdominal pain, hemorrhoids, diarrhea, bloating, bloody stools or dark ta rry stools. Genitourinary: No urinary frequency, blood in urine, difficulty in urination, discharge, p ainful urination, incontinence, urinary urgency or genital sores. Neurologic: No unusual headaches, inability to speak, poor balance, numbness, tingling, tr emors, memory loss, disturbances in coordination or sensation of room spinning. Skin: No itching, rash, poor wound healing, night sweats, changes in skin color, dryness, flushing or suspicious lesions. Psychological: No abnormal anxiety, depression, thoughts of suicide or hallucinations. Heme/Lymphatic: No skin discoloration, abnormal bleeding or enlarged lymph nodes. Endrocrine: No heat intolerance, cold intolerance, excessive hunger or excessive thirst. Allergic: No seasonal allergies, hives or rash, persistent infections or HIV exposure. No past surgical history on file. No family history on file. PHYSICAL EXAM: Ear, nose, and throat exam reveals a pleasant, well-developed, well-nourish ed patient, in no apparent distress. Voice quality is within normal limits. Anterior rhinos copy reveals mucosa with no significant signs of erythema or inflammation. [place] maneuver gives her some benefit. No polyps or purulence are noted. External auditory canals and tympa ya membranes appear normal. Oral cavity and oropharynx reveals no mucosal lesion. The pharyngeal mucosa reveals no le sions. Larynx and hypopharynx exam reveals no lesions and no pooling of secretions. No mas ses are identified. Lips and tongue are within normal limits. Neck reveals no mass, adenop athy, or thyromegaly. Salivary glands are normal to palpation. PROCEDURE: Diagnostic Nasal Endoscopy Anesthesia: Lidocaine 4% topical anesthetic was placed. Description of Procedure: A rigid endoscope was utilized to evaluate the sinonasal cavitie s, mucosa, sinus ostia and turbinates. Overall, there is some mucostasis, no significant mu cosal inflammation is observed. ASSESSMENT: Chronic rhinosinusitis, nasal obstruction, asthma. PLAN: Continue with current therapies including rinses and topical steroid, we will give h er a short trial of pred forte to see if she would like to continue this long-term. Return for follow up PRN. I personally interviewed the patient, duplicated the pertinent parts of the physical examin ation and procedure and personally formulated the plan. I have reviewed, entered my finding s, and agree with the above documentation. Maurice Garcia M.D., M.P.H., F.A.C.S. Director, [facility] Professor and Chief, Rhinology and Sinus Surgery Department of Otolaryngology/Head and Neck Surgery documented in this encou nter Plan of Treatment + + +--------+ + + | Name | Type | Priori | Associated Diagnoses | Order Schedule | | | | ty | | | + + +--------+ + + | NASAL ENDOSCOPY, | Procedures | Routin | Chronic Ethmoidal | Ordered: 10/12/2006 | | DIAGNOSTIC | | e | Sinusitis Chronic | | | | | | Maxillary Sinusitis | | + + +--------+ + + documented as of this encounter Visit Diagnoses + + | Diagnosis | + + | Chronic ethmoidal sinusitis | + + | Chronic maxillary sinusitis | + + | Other diseases of nasal cavity and sinuses(478.19) Other diseases of nasal cavity and | | sinuses | + + documented in this encounter"
--- OUTSIDE RECORDS SUMMARY | ~2019-09-03 | XMS | Encounter Summary ---
Demographics + + + | Address | [address] | | | [place] [address] | + + + | Home Phone | | + + + | Preferred Language | Unknown | + + + | Marital Status | | + + + | Jehovah'S Witness Affiliation | VANDA | + + + [...] Josue Schaeffer | ECON | [address] | | | | | [place] [address] | | + + + + + | Dariana Dowling | ECON | Unknown | | + + + + + Care Team Providers + +------+ + | Care Biologist Aide Name | Role | Phone | + +------+ + PCP | Unavailable | + +------+ + Reason for Visit + + + | Reason | Comments | + + + | Follow-up visit | | + + + Consultation (Routine) +--------+--------+ + + + + | [...] Emanuel | | | | | | [facility] | [address] | | | | | | [place] | [place] | | | | | | URGENT [facility]ARE | [place], [place] | | | | | | [address] | [address] | | | | | | [place] | | | | | | | [place], | | | | | | | [place] [address] | | | | | | | Phone: | | | | | | | [phone] | | | | | | | Fax: | | | | | | | [phone] | | +--------+--------+ + + + + Encounter Details +--------+---------+ + + + | Date | Type | Department | Care Team | Description | +--------+---------+ + + + | 09/04/ | Office | Cardiology [facility] at | Emanuel Morgan, | Rheumatic Aortic | | 2006 | Visit | [facility] [address] | | Stenosis with | | | | [facility] | | Insufficiency | | | | [facility], | | (Primary Dx); Other | | | | Building | | and Unspecified | | | | Floor [place], [place] | | Mitral Valve | | | | [address] | | Diseases; | | | | [phone] | | Unspecified | | | | | | Rheumatic Heart | | | | | | Disease | +--------+---------+ + + + Social History [...] + + + | Blood Pressure | 146/68 | 10/12/2006 11:03 AM | | | | | PDT | | + + + + + | Pulse | 60 | 10/12/2006 11:03 AM | | | | | PDT | | + + + + + | Temperature | - | - | | + + + + + | Respiratory Rate | - | - | | + + + + + | Oxygen Saturation | 96% | 10/12/2006 11:03 AM | | | | | PDT | | + + + + + | Inhaled Oxygen | - | - | | | Concentration | | | | + + + + + | Weight | 64 kg (141 lb) | 10/12/2006 11:03 AM | | | | | PDT | | + + + + + | Height | 165.1 cm (5' 5") | 10/12/2006 11:03 AM | | | | | PDT | | + + + + + | Body Mass Index | 23.46 | 10/12/2006 11:03 AM | | | | | PDT | | + + + + + documented in this encounter Patient Instructions Patient Instructions Marianela Elder - 10/12/2006 12:11 PM PDTPlease attempt to try the 30 day event monitor to evaluate your arrythmia (fast heart rate). If you cannot tolerate the tape, call us and we can get the device back from you. We would like to see you in 3 months . documented in this encounter Progress Notes Emanuel Morgan - 10/12/2006 2:07 PM PDTFormatting of this note might be different from faina palomo. CARDIOLOGY RETURN VISIT Maria Alejandra Schaeffer is a 66 y.o. female who comes in for follow up for her rheumatic heart disea se. Cardiac Problem list/risk factors: 1. Rheumatic heart disease. 1.1. Mitral valve commissurotomy. 1.2. 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 1.3. Chronic warfarin therapy. 1.4. Functional class II status but not necessarily related to her heart. 2. Hypertension, controlled. 3. Chronic migraines. 4. Chronic allergies. 5. Hypothyroidism, now euthyroid. 6. Diffuse joint and muscular pains related to arthritis and/or fibromyalgia. Current outpatient prescriptions Medication Sig Sertraline HCl (ZOLOFT) 50 mg Oral Tablet take 1 tab daily Fluticasone Propionate (FLONASE) 50 mcg/Actuation Nasal Aerosol, Gilbert 2 sprays in am a nd pm [...] TAB take as directed by anticoagulation clinic Allergies: Aspirin, Clarification needed and Adhesive tape Subjective. Mrs. Schaeffer has has not been seen for 2 years. She and her moved to [place] and it is more difficult for them to come to [place]. She is seeing Dr. Walls. She feels ceasar t she is more dyspneic with activity and also retains more fluid. She is taking 40 mg of la six most days. She walks on the level OK, but becomes dyspneic on inclines or stairs. She is not having any PND or orthopnea. Her INRs have been well-regulated. Her activity status is primarily a function of class II. She also notes that she frequently has periods of rap id heart beating. These last minutes (10-15 minutes) and are associated with lightheadednes s. This have been increasing in frequency. An arrhythmia has not been documented. She fee ls that when she walks, she is likely to stop due to tiredness or cramping in her legs. Her breathing is the problem up an incline. Review of System: See attached flow sheet. Her thyroid function has been stable. She co ntinues to have intermittent problems with her migraines and allergies. She has an appointm ent in ENT today for her chronic sinus problems. PE: Vitals: BP 146/68 | Pulse 60 | Ht 1.651 m (5' 5") | Wt 63.957 kg (141 lbs) | SpO2 96%. She usually has a blood pressure in the 120s at home. She has not taken her diuretics for t he last 2 days because of traveling. It gets inconvenient to stop frequently. If she takes h er diuretics regularly, her blood pressure is under control. Lungs: Clear to auscultation. Cardiovascular: Jugular venous pressure is less than 8. She has the mechanical valve sounds that are heard throughout the precordium. There is a 2/6 systolic ejection murmur heard at the base of the heart. No diastolic murmurs are heard. Abdomen: Not obese nor tender. Extremities: There is no edema. Echo done today: Normal LV size and function. Normal RV size and function. Good functio n of the aortic prosthesis with a peak velocity of 2.8 m/sec and a mean gradient of 16 mmHg. Good function of the mitral prosthesis with a peak velocity of 1.2 m/sec and a mean gradie nt of 2 mmHg. RV systolic pressure is 30-35 mmHg. These findings are very similar to the l ast echo of 2004. Labs: Lab Results Lab Test Name Results Date/Time TSH 1.70 04/24/2003 Assessment. The echo and my examination indicate that at rest, her cardiac function and the function of the 2 prosthetic valves are good. I cannot find a good explanation for her fluid retention or her reduced exercise tolerance. With an increase in cardiac output associated with exer tion, the gradients across the prosthetic valves will increase and that may be the problem. She is in sinus rhythm now, but it sounds like she is having intermittent tachyarrhythmias. This may explain some of her symptoms. We need to try to document the arrhythmia. This i s a little more difficult as she is quite allergic to the adhesive from the ECG leads. I don't have the lab results, but she says that her thyroid hormone levels are good. I wou ld like to be sure the tachyarrhythmia is not due to too much thyroid replacement. She will be certain that the levels are OK by checking with Dr. Walls. Plan. 1. Set up for an event monitor here with hypoallergenic ECG leads. 2. RTC in 3 months unless advised otherwise based on event monitor findings. 3. Continue INR at 2.5-3.5. 4. She will check with Dr. Walls about results of thyroid function studies.Electronica lly signed by Emanuel Morgan at 10/12/2006 2:08 PM PDTdocumented in this encounter Plan of Treatment + +------+--------+ + + | Name | Type | Priori | Associated Diagnoses | Order Schedule | | | | ty | | | + +------+--------+ + + | 30 DAY CARDIAC | ECG | Routin | Other and | Ordered: 10/12/2006 | | MONITOR - ECG | | e | Unspecified Mitral | | | | | | Valve Diseases | | | | | | Unspecified | | | | | | Rheumatic Heart | | | | | | Disease Rheumatic | | | | | | Aortic Stenosis with | | | | | | Insufficiency | | + +------+--------+ + + documented as of this encounter Visit Diagnoses + + | Diagnosis | + + | 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
--- OUTSIDE RECORDS SUMMARY | ~2019-09-03 | XMS | Encounter Summary ---
Demographics + + + | Address | [address] | | | [place] [address] | + + + | Home Phone | | + + + | Preferred Language | Unknown | + + + | Marital Status | | + + + | Restorationism Affiliation | VANDA | + + + | Race | White | + + + | Ethnic Group | Not or | + + + Author + + + | Author | [facility] | + + + | Organization | [facility] | + + + | Address | Unknown | + + + | Phone | Unavailable | + + + Support + + + + + | Name | Relationship | Address | Phone | + + + + + | Josue Schaeffer | ECON | [address] | | | | | [place] [address] | | + + + + + | Dariana Dowling | ECON | Unknown | | + + + + + Care Team Providers + +------+ + | Care Solar Energy Advisor Name | Role | Phone | + +------+ + PCP | Unavailable | + +------+ + Encounter Details +--------+ + + + + | Date | Type | Department | Care Team | Description | +--------+ + + + + | 01/17/ | Office | General Internal | Note, Outpatient | Progress Note | | 1996 | Visit-Trans | Medicine [address] | Clinic | | | | yovani | [address] | | | | | | Mailcode: [id number] | | | | | | Outpatient Clinic | | | | | | [facility], [address] | | | | | | [place], [place] | | | | | | [address] | | | | | | [phone] | | | +--------+ + + + [...] as of this encounter Progress Notes Interface, Oil Well Service Operator In - 03/17/2006 3:05 AM [facility] DATE: 01/17/97 CARDIOLOGY CLINIC: REASON FOR VISIT: Mrs. Schaeffer is a [id number]-old woman who comes in for routine follow-up for her double valve replacement. MEDICAL PROBLEM LIST: 1. Rheumatic heart disease. 1.1 Mitral valve commissurotomy in 1996. 1.2 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 1.3 Warfarin therapy. 1.4 Functional class II. 2. Hypertension, mild. 3. 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 4. Headaches. 5. Chronic swelling of the left arm as a result of the surgery. MEDICATIONS: 1. Lisinopril 2.5 mg b.i.d., she takes it on a p.r.n. basis, based on what her blood pressure readings are. 2. Tylenol P.M., which she takes several times during the day. 3. Flonase p.r.n. 4. Maxair two to four times a day. 5. Claritin p.r.n. 6. Warfarin as directed through the Anticoagulation Clinic. SUBJECTIVE: Mrs. Schafefer continues to do well. 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 She has pretty much restricted activity, although she has to go at her own pace. She has been having more difficulty with her breathing and thinks it is due to some of the dust around the [place] area. She continues to regulate her lisinopril dosage based on her blood pressures, if she takes too much of it, it seems that she becomes lightheaded and dizzy. Her warfarin has been well regulated and there have been no problems with bleeding. OBJECTIVE: VITAL SIGNS: Her weight is 136 pounds, blood pressure is 124/60 in the left arm sitting, apical pulse is 72 and regular. NECK: Carotid upstrokes are normal without any bruits. Jugular venous pressure is less than 5 cm. LUNGS: Clear to auscultation. CHEST: The median sternotomy scar is well-healed. The sternum is stable. CARDIAC: The valve sounds are well heard. There is a systolic ejection murmur heard at the lower left sternal border and over the aortic area. ABDOMEN: The abdomen is nontender, no hepatosplenomegaly. EXTREMITIES: Show mild amount of swelling in the left arm, there is no swelling in her legs. Pulses are good throughout. ASSESSMENT: Mrs. Schaeffer continues to do quite well with the double valve replacement, Coumadin has been well regulated without any problems. Her blood pressure has been well regulated. In looking through her record, I did not see that an echo has been performed since her surgery in 1994. I think that would be worth doing for baseline idea of what her current function is now. I don't think that the shortness of breath she is having is related to her valves, but the echo would provide some input into that. PLAN: 1. Continue with same medications. 2. Get an echo at her next clinic visit in May. Emanuel Morgan M.D. Professor, Medicine Division of Cardiology GP/sct documented in this encounter Plan of Treatment Not on filedocumented as of this encounter Visit Diagnoses Not on filedocumented in this encounter"
--- OUTSIDE RECORDS SUMMARY | ~2019-09-03 | XMS | Encounter Summary ---
Demographics + + + | Address | [address] | | | [place] [address] | + + + | Home Phone [...] Josue Schaeffer | ECON | [address] | | | | | [place] [address] | | + + + + + | Dariana Dowling | ECON | Unknown | | + + + + + Care Team Providers + +------+ + | Care Organ Recovery Coordinator Name | Role | Phone | + +------+ + PCP | Unavailable | + +------+ + Encounter Details +--------+ + + + + | Date | Type | Department | Care Team | Description | +--------+ + + + + | 03/30/ | Office | [facility] | Note, [...] as of this encounter Progress Notes Interface, Supervisor Pullet Farm In - 12/10/2005 1:05 AM PSTCLINIC DATE: 03/30/2000 OTOLARYNGOLOGY CLINIC SUBJECTIVE: The patient returns. She has been doing the nasal irrigations daily. She does state that after her last examination in September 1999, she did have a lot of hard crust of foul-smelling material from her nose. Overall, she has been doing well, although she did have a recent sinus infection. PROCEDURE NOTE: Sinus endoscopy with debridement. ANESTHESIA: Phenylephrine 1% and lidocaine 4% topical. DESCRIPTION OF PROCEDURE: The scope was first passed into the left nasal passage. The maxillary sinus is clear, the ethmoid cavity anteriorly is clear, posteriorly within the posterior ethmoid and sphenoid there is a thick inspissated pasty material which is impacted within in the sinus and removed using the straight Newton-tip suction. The underlying mucosa appears relatively normal. The scope was then passed into the right nasal passage. The maxillary sinus is completely impacted with thick pasty material. This was removed with great difficulty from the maxillary sinus using a curved suction-tip catheter, frontal sinus curette, and a Blakesley forceps. The remainder of the sinus cavities are clear. The scope was then removed. The patient tolerated the procedure well. ASSESSMENT: Chronic sinusitis. The patient continues to have some problems with impaction of the right maxillary sinus and left ethmoid cavity. However, this is significantly improved over her last appointment in September 1999. I have given her additional course of clindamycin. I would like her to continue on the Flonase, Bactroban, and saline irrigations. Again, I believe that frequent debridements are necessary to keep these sinuses open, and I would like to see her back in 3 to 4 months. Mayra Vega M.D. LES / MATTHIAS [id number] / [id number] / [id number] / [id number] signed by Interface, Supervisor Pullet Farm In at 12/10/2005 1:05 AM PSTdocume nted in this encounter Plan of Treatment Not on filedocumented as of this encounter Visit Diagnoses Not on filedocumented in this encounter"
--- OUTSIDE RECORDS SUMMARY | ~2019-09-03 | XMS | Encounter Summary ---
Demographics + + + | Address | [address] | | | [place] [address] | + + + | Home Phone | | + + + | Preferred Language | Unknown | + + + | Marital Status | | + + + | Uatsdin Affiliation | VANDA | + + + [...] | | | | | [place] [address] | | + + + + + | Dariana Dowling | ECON | Unknown | | + + + + + Care Team Providers + +------+ + | Care Generation Engineering Technologist Name | Role | Phone | + +------+ + PCP | Unavailable | + +------+ + Encounter Details +--------+ + + + + | Date | Type | Department | Care Team | Description | +--------+ + + + + | 07/27/ | Results | | Other, Faculty | | | 1995 | Only | | [phone] | | +--------+ + + + + [...] X-RAY CHEST 2 VIEW | Routin | 07/28/1995 | | Results for this | | | e | 11:48 AM | | procedure are in the | | | | PDT | | results section. | + +--------+ + + + documented in this encounter Results CHEST 2 VIEW (07/28/1995 11:48 AM PDT) + + + + + + | Component | Value | Ref Range | Performed | Pathologist | | | | | At | Signature | + + + + + + | CHEST, 2 | Radiologist 1: VIANEY, | | | | | VIEWS [place] | JULIO CESAR CARRERA, | | | | | STEREO | MARIA ALEJANDRA Magaña | | | | | | | | | | | | | | | | | | CHEST, PA AND | | | | | | LATERAL: 07-28-95 at | | | | | | 1148 hours | | | | | | Dictated: 07-29-95 | | | | | | Comparison is made with | | | | | | 04-13-95. FINDINGS: The | | | | | | heart size is | | | | | | unchanged. Left atrial | | | | | | enlargement asbefore. | | | | | | There is no pulmonary | | | | | | edema. The lungs | | | | | | remain clear. Thereis | | | | | | no pleural effusion. | | | | | | IMPRESSION: No | | | | | | significant change since | | | | | | 04-13-95. END OF | | | | | | IMPRESSION: | | | | + + + + + + + + | Specimen | + + | | + + + + + | Narrative | Performed At | + + + | Ordered by Spencer KHAN M.D. | | + + + + +---------+ + + | Performing | Address | City/State/Zipcode | Phone Number | | Organization | | | | + +---------+ + + | [facility] | | | | | RADIOLOGY | | | | + +---------+ + + documented in this encounter Visit Diagnoses Not on filedocumented in this encounter"
--- OUTSIDE RECORDS SUMMARY | ~2019-09-03 | XMS | Encounter Summary ---
Demographics + + + | Address | [address] | | | [place] [address] | + + + | Home Phone | | + + + | Preferred Language | Unknown | + + + | Marital Status | | + + + | Lutheran Affiliation | VANDA | + + + [...] | | | | | [place] [address] | | + + + + + | Dariana Dowling | ECON | Unknown | | + + + + + Care Team Providers + +------+ + | Care Bolt Loader Name | Role | Phone | + +------+ + | Enoc Lee NP | PCP | | + +------+ + Encounter Details +--------+ + + + + | Date | Type | Department | Care Team | Description | +--------+ + + + + | 09/30/ | Ancillary | Registration [id number] | | | | 2004 | [address] | [address] | | | | | [address] | [address] Mailcode: [id number] | | | | | | [place], [place] | | | | | | [address] | | | | | | [phone] | | | +--------+ + + + [...]
--- OUTSIDE RECORDS SUMMARY | ~2019-09-03 | XMS | Encounter Summary ---
Demographics + + + | Address | [address] | | | [place] [address] | + + + | Home Phone | | + + + | Preferred Language | Unknown | + + + | Marital Status | | + + + | Roman Catholic Affiliation | VANDA | + + + | Race | White | + + + | Ethnic Group | Not or | + + + Author + + + | Author | [facility] | + + + | Organization | [facility] | + + + | Address | Unknown | + + + | Phone | Unavailable | + + + Support + + + + + | Name | Relationship | Address | Phone | + + + + + | Josue Schaeffer | ECON | [address] | | | | | [place] [address] | | + + + + + | Dariana Dowling | ECON | Unknown | | + + + + + Care Team Providers + +------+ + | Care Onsite Health Coach Name | Role | Phone | + +------+ + PCP | Unavailable | + +------+ + Encounter Details +--------+ + + + + | Date | Type | Department | Care Team | Description | +--------+ + + + + | 09/29/ | Office | [facility] | Note, Outpatient | Progress Note | | 1999 | Visit-Trans | MEDICINE | Clinic | [...] as of this encounter Progress Notes Interface, Textile Pin Worker In - 12/22/2005 5:04 AM PSTCLINIC DATE: 09/30/1999 OTOLARYNGOLOGY CLINIC CHIEF COMPLAINT: "Sinus infections." HISTORY OF PRESENT ILLNESS: The patient is a 59-year-old woman, who is previously a patient of Dr. Bennie Garcia and Dr. Varsha Muse. She was last seen by Dr. Muse in January 1997. She has been having gradually increasing sinus infections. She states that she has one approximately every six to nine months. These usually respond well to clindamycin although sometimes it takes up to eight months of antibiotics. She is complaining of some maxillary and frontal headaches and also some headaches along the top of her head and along the occiput. She does complain of thick fowl-smelling postnasal drainage. She has been on clindamycin since Wednesday. She is also using Flonase, Claritin, saline nasal spray as needed, and a humidifier. She does notice significantly altered sense of smell and taste. She states that she has been having increased blood-tinged nasal discharge and some epistaxis, especially from the right side. REVIEW OF SYSTEMS: The health history form was reviewed with the patient, significant for ringing in the ears, palpitations, shortness of breath, and heart murmur. PAST MEDICAL HISTORY: Asthma, mitral valve and aortic valve replacement due to rheumatic fever, hypertension, and arthritis. HOSPITALIZATIONS AND OPERATIONS 1. 1976, valvuloplasty. 2. 1982, hysterectomy. 3. 1993, mitral valve and aortic valve replacement. 4. 1995, bilateral intranasal ethmoidectomies and anterior meatal windows with removal of a nasal polyp. CURRENT MEDICATIONS: Coumadin 5 mg q.d., Flonase, Claritin, albuterol inhaler, Tylenol, salsalate, Prinivil, clindamycin, Benadryl, meclizine, and Premarin. ALLERGIES: ASPIRIN AND PLASTIC TAPE. THE PATIENT HAS BEEN TESTED FOR ALLERGIES IN THE PAST AND UNDERWENT APPROXIMATELY SIX MONTHS OF IMMUNOTHERAPY ALTHOUGH SHE HAD A SEVERE REACTION TO THIS AND IT WAS STOPPED. FAMILY HISTORY: Cancer (father) and diabetes (mother). SOCIAL HISTORY: The patient denies use of tobacco. She denies use of alcohol or other addictive substances. PHYSICAL EXAMINATION: GENERAL: This is a well-nourished, well-developed woman in no acute distress, pleasant and cooperative. Normal ability to communicate. VITAL SIGNS: Blood pressure 160/88, pulse 66, height 5 feet 5-1/2 inches, and weight 139 pounds. HEENT: Head: Normocephalic and atraumatic. Face: Normal facial symmetry. No facial lesions. Nontender to percussion over the sinuses. Salivary glands normal to palpation. Normal facial strength bilaterally. Eyes: Extraocular movements intact. Conjunctivae clear. No proptosis. Ears: Normal external auditory canals. Normal tympanic membranes. No effusion or retraction. Ears: Normal pinnae bilaterally with no deformities. Nose: No external nasal deformities. Anterior rhinoscopy reveals moderately erythematous nasal mucosa with some boggy edema. There is some fowl-smelling discharge from the right nasal cavity. The septum is relatively midline. The inferior turbinates appear relatively normal. Oral cavity: Normal lips, teeth, and gums. Normal floor of mouth and normal tongue. Oropharynx: Normal hard and soft palates. Normal posterior pharynx. Normal tonsillar pillars. NECK: No palpable lymphadenopathy. Normal symmetry. Trachea is midline. Thyroid: Nontender, no masses, and no enlargement. NEUROLOGIC: Cranial nerves 2 through 12 grossly intact. Mood and affect normal. Orientation: Oriented times three. PROCEDURE NOTE: Diagnostic nasal endoscopy with debridement. PROCEDURE: A 4-mm 30-degree nasal endoscope was first passed into the left nasal passage. The middle meatus appeared clear. The ethmoid cavity was clear. There were no retained secretions or purulent secretions noted. The sphenoethmoid recess was clear. The scope was then passed in the right nasal passage. There was a large amount of fowl-smelling green crusts which were within the maxillary sinus and ethmoid cavity. This required extensive debridement using both the straight Blakesley forceps and curve and straight suction catheter for removal. The underlying mucosa was erythematous and there were some purulent-appearing secretions. The underlying mucosa was also somewhat friable. The scope was then removed, and the patient tolerated the procedure well. ASSESSMENT: Chronic sinusitis. The patient has not been seen in several years. Today, she had a very large infected nasal crusting within the maxillary sinus and ethmoid cavity which was removed. TREATMENT PLAN 1. I will put her on additional two weeks of clindamycin 300 mg p.o. q.i.d. 2. I started her on some Bactroban nasal irrigations daily. 3. There was a significant amount of material caught up within the sinuses on this examination. We should plan to do a little more regular hygiene of her sinuses as well as an examination, especially in light of her artificial valves. 4. I would like to see her again in approximately six months or sooner if needed. Mayra Vega M.D. LES / MATTHIAS [id number] / [id number] / [id number] / [id number] signed by Interface, Textile Pin Worker In at 12/22/2005 5:04 AM PSTInterf patria, Textile Pin Worker In - 12/22/2005 5:04 AM PSTCLINIC DATE: 09/30/1999 CARDIOLOGY CLINIC REASON FOR VISIT: Mrs. Schaeffer is a 59-year-old woman who comes in after a 2-1/2-year absence for followup of her valvular heart disease. MEDICAL PROBLEM LIST 1. Rheumatic heart disease. 1.1. Mitral valve commissurotomy in the past. 1.2. 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 1.3. Warfarin therapy. 1.4. Functional class II. 2. Hypertension, controlled. 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 4. Chronic migraine headaches. 5. Chronic swelling of the left arm. CURRENT MEDICATIONS 1. Clindamycin 150 mg two tablets q.6h. for sinus infection. 2. Albuterol inhaler. 3. Flonase. 4. Premarin half of a 0.3 mg tablet a day. 5. Prinivil which she takes 0.25 mg as needed if her blood pressure is up, and this is about every month. 6. Lasix 20 mg as needed for edema, uses this less than once a week. 7. Warfarin, regulated by the INR. 8. Claritin 10 mg a day. 9. Meclizine half of a 25 mg tablet. 10. Tylenol 500 mg two tablets q.i.d. as needed for arthritic pain. 11. Magnesium sulfate as needed for arthritic pain. SUBJECTIVE: I last saw Mrs. Schaeffer in March 1997 when she was hospitalized after two near syncopal episodes. She underwent a thorough evaluation, nothing was found, and I thought that this might be secondary to her complex migraine. She has not had any episodes since that hospitalization. She does have the history of reactive airway disease, is on a variety of inhalers. From the cardiac point of view, she is doing really well. She continues to be active, doing yard work. She had her grandson visiting for the past two weeks. 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 She feels that her activity status is good and stable, and she is only bothered by more vigorous activity. She has been getting her INR checked, and as far as she is aware this has been well regulated. 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 PHYSICAL EXAMINATION: VITAL SIGNS: Her weight is 139.4 pounds. Blood pressure is 160/88, although when she monitors it at home, it usually runs 130/80. Her pulse is 66 and regular. LUNGS: Clear to auscultation. CHEST: There is a well-healed median sternotomy scar, and the sternum is stable. CARDIAC: The jugular venous pressure is 6 cm. Carotid upstrokes are brisk without bruits. On auscultation, the valve sounds are crisp. There is a systolic ejection-type murmur heard at the left sternal border and slightly at the base of the heart. No diastolic murmurs are heard. ABDOMEN: Nontender. No hepatosplenomegaly. EXTREMITIES: There is a mild amount of swelling in the left arm, no swelling in the right arm or legs. ASSESSMENT: Mrs. Schaeffer seems to be doing well from a cardiac status, and I do not see any major issues or concerns. It is probably time just to update her database on her. PLAN 1. We will get an echocardiogram today. 2. Laboratory work to include CBC, INR, and complete metabolic panel. 3. Return to clinic in one year's time or sooner if needed. Emanuel Morgan M.D. GP / HS [id number] / [id number] / [id number] / [id number] cc: Kt Brunner Billing Spec [address] [place] [address] [address] [place] [address] [id number] signed by Interface, Textile Pin Worker In at 12/22/2005 5:04 AM PSTdocume nted in this encounter Plan of Treatment Not on filedocumented as of this encounter Visit Diagnoses Not on filedocumented in this encounter
--- OUTSIDE RECORDS SUMMARY | ~2019-09-03 | XMS | Encounter Summary ---
Demographics + + + | Address | [address] | | | [place] [address] | + + + | Home Phone | | + + + | Preferred Language | Unknown | + + + | Marital Status | | + + + | Restorationist Affiliation | VANDA | + + + | Race | White | + + + | Ethnic Group | Not or | + + + Author + + + | Author | [facility] | + + + | Organization | [facility] | + + + | Address | Unknown | + + + | Phone | Unavailable | + + + Support + + + + + | Name | Relationship | Address | Phone | + + + + + | Josue Schaeffer | ECON | [address] | | | | | [place] [address] | | + + + + + | Dariana Dowling | ECON | Unknown | | + + + + + Care Team Providers + +------+ + | Care Paralegals Name | Role | Phone | + +------+ + PCP | Unavailable | + +------+ + Encounter Details +--------+ + + + + | Date | Type | Department | Care Team | Description | +--------+ + + + + | 03/29/ | Discharge | Allergy Clinic at | Summary, Discharge | D/C Summary ODDS | | 1997 | Summary-Tra | [facility] [address] | | | | | nscribed | [address] | | | | | | [facility] | | | | | | [address] | | | | | | [place], [place] | | | | | | [address] | | | | | | [phone] | | | +--------+ + + + [...] + + documented as of this encounter Discharge Summaries Interface, Dinkey Engine Firer In - 03/11/2006 3:11 AM PST [place] [address] [place], [place] [address] [facility] MEDICAL SUMMARY OF HOSPITALIZATION Med Rec No.: [id number] Admission Date: 03/28/97 Name: Maria Alejandra Schaeffer Discharge Date: 03/29/97 STAFF PHYSICIAN: Emanuel Morgan M.D. Professor, Medicine Division of Cardiology PRINCIPAL FINAL DIAGNOSIS: Near syncopal episodes x 2 thought to be secondary to complex migraines. Thorough valvular cause of work-up negative. ADDITIONAL DIAGNOSIS(ES): 1. Rheumatic heart disease.. 1.1 Status post mitral valve commissurotomy in 1996. 1.2 Mitral valve and aortic valve replacements with St. Theo valve in 1994 and currently on Coumadin. 1.3 Chronic left arm swelling since surgery. 2. Hypertension on low dose Lisinopril as needed. 3. History of vertigo. 3.1 Labyrinth disease. 3.2 Has been on Meclizine in the past. 4. History of headaches. 5. History of sinusitis and nasal polyps. 5.1 Sore throat in 01/1997. 5.2 - bilateral ethmoidectomies, sphenoidectomy, mid-turbinectomy, maxillary surgery performed at [facility]. 6. History of reactive airway disease. Has been on a Ventolin inhaler in the past. PRINCIPAL PROCEDURE: Computed axial tomography (CT scan) of the head on 03/28 which was negative for evidence of bleed or infarction. ADDITIONAL PROCEDURE(S): 1. Transthoracic echocardiogram on 03/28. No evidence for valvular disease. Mild decrease in left ventricular systolic function. Otherwise normal valves. 2. Carotid Dopplers 03/28/97 negative for stenosis bilaterally. 3. Transesophageal echocardiogram performed 03/29/97 was negative for any intracardiac thrombus for valvular vegetations. REASON FOR ADMISSION: Ms. Schaeffer is a 56-year-old lady with history of rheumatic heart disease status post mitral valve and aortic valve replacement in 1994 and also history of chronic sinusitis, who was admitted for evaluation of episode of sudden onset of severe weakness and near syncope that occurred four days prior to admission. And a similar second episode on two days prior to admission with residual left-sided weakness and generalized fatigue. She reports over the last month noted increased fatigue with increased shortness of breath requiring more Lasix. She normally takes 20 mg Lasix p.o. on an as needed basis based on her lower extremity swelling and she states over the last month she has been taking Lasix more frequently. She also takes her Lisinopril 2.5 mg p.o. q.d. based on her morning blood pressure that she takes at home which has been stable. She reports a recent sinus infection that manifested as nasal congestion and drainage and she started on Clindamycin 200 mg p.o. q.i.d. on 03/21 for a full 10-day course. She reports her symptoms have resolved but continues to feel tired. Besides her fatigue, she had been in her normal state of health until the episode four days prior to admission when at home standing at her kitchen sink she felt "dizzy" but with no vertigo-like symptoms, and then felt weakness in her legs, enough to cause her to fall to the floor. She denies any trauma or loss of bowel or bladder habits. It was not a witnessed fall. She did not lose consciousness. No loss of vision. No palpitations. No chest pain or shortness of breath at that time. After her second episode two days prior to admission she also tingling and numbness on the left side of her body and then slight residual weakness. She does report episodes of visual blurring prior to these episodes but denies any headache. also denies fever, chills, nausea or vomiting, no change in appetite and no weight loss, no change in bowel or bladder habits. She is ambulating well without assistance. PHYSICAL EXAMINATION: VITAL SIGNS: Blood pressure 134/76 sitting, standing 120/68, pulse rate 85, respiratory rate 16, weight 130 pounds, temperature 36 degrees. GENERAL: She is alert and oriented, pleasant, in no apparent distress. HEENT: Pupils equal, round, and reactive to light. Extraocular movements intact bilaterally. Oropharynx and nasopharynx are clear. No erythema. No exudate. Thyroid is symmetric. No nodules. She has no lymphadenopathy. No carotid bruits. Sclerae were clear and nonicteric. NECK: Supple. No pain on palpation. CARDIAC: Regular rate. Sharp S1 and S2. Palpable S2 over upper sternum. II/ early systolic murmur. LUNGS: Clear to auscultation bilaterally. ABDOMEN: Soft, nontender, nondistended. Normal bowel sounds. No hepatosplenomegaly. EXTREMITIES: No edema. Warm distally. Pulses were 2+ bilaterally in the upper extremities and lower extremities. NEUROLOGIC: Cranial nerves II through XII were intact bilaterally. Strength 5/5 bilaterally in her upper extremities. In the lower extremities she was 5/5 on the right and 4/5 on the left. Deep tendon reflexes 2+ bilaterally in upper and lower extremities. Coordination tests were intact. SKIN: She has no evidence for petechiae. No rashes. LABORATORY DATA: White blood cell count 6.9, HCT 35.9, platelets 190,000. Electrolytes significant for blood urea nitrogen (BUN) 17, creatinine 1.1, calcium 9.9, potassium 3.8, magnesium 2.0, phosphorus 3.3, LDH mildly elevated at 345. Results of studies performed during this admission are as above. HOSPITAL COURSE: Ms. Schaeffer was admitted to the Cardiology Service. She received multiple tests on initial day of admission with negative carotid Dopplers, negative transthoracic echocardiogram, a negative head CT for evidence for an acute bleed or infarction. Neurology was also consulted. After thorough evaluation of Ms. Schaeffer, it was felt that she could possibly be suffering from complex migraines with history of visual changes in the past but without episodes of hemiparesis or weakness. While the transthoracic echo result were reassuring, it did not exclude the possibility of small thrombus or vegetations on the mechanical valve. In light of this it was decided that a transesophageal echocardiogram be performed on hospital day #2. Ms. Schaeffer tolerated this procedure well. The transthoracic echo showed normal left ventricular size and function, mildly enlarged left atrium but without thrombus, aortic and a mitral prosthesis functioning well with no evidence of masses or vegetations. There was evidence of a small paravalvular leak around the mitral prosthesis valve and trace aortic insufficiency, possibly paravalvular. No evidence for intracardiac shunt and no evidence for pericardial effusion. Ms. Schaeffer was felt to be stable for discharge after her transesophageal echocardiogram. She will need to have close follow-up with Dr. Morgan and with her primary care physician in [place]. She has a follow-up appointment scheduled with Dr. Morgan in May which she is motivated to keep. She is also recommended to call Dr. Morgan if there is any recurrence of her episodes. She is also motivated to start a trial of low-dose Amitriptyline as recommended per Neurology as prophylaxis for migraine headaches to start at a low dose, 25 mg p.o. q.d., to titrate up slowly over 10 days as tolerated with a maximum dose possible of 100 mg p.o. q.d. to be taken at night. Ms. Schaeffer is motivated to try this medication and will monitor closely for any neurologic or visual changes. In addition she will need follow-up blood cultures in two weeks as she will finish her full 10-day course of Clindamycin two days after discharge. Throughout her whole admission she has no evidence for any infection with normal white blood cell count and blood cultures that were negative. CONDITION ON DISCHARGE: The patient was discharged to home in stable condition. DISCHARGE MEDICATION(S): 1. Lisinopril 2.5 mg p.o. p.r.n. 2. Lasix 20 mg p.o. p.r.n. 3. Clindamycin to finish full antibiotic course of 10 days. 4. Amitriptyline 25 mg p.o. q.d. 5. Flonase. 6. Claritin 10 mg p.o. q.d. 7. Coumadin as recommended per her Anticoagulation Clinic. DISCHARGE INSTRUCTION(S): FOLLOW UP: She will have follow-up appointment with Dr. Morgan as already scheduled in . She also plans to have follow-up appointment with her Anticoagulation Clinic near [place] as she has been previously to follow-up on her PT and INR. ACTIVITY: As tolerated. DIET: Normal. Jennifer Loera M.D. Resident, Internal Medicine Emanuel Morgan M.D. Professor, Medicine Division of CardiologyS/babak A cc: documented in this encounter Plan of Treatment Not on filedocumented as of this encounter Visit Diagnoses Not on filedocumented in this encounter
--- OUTSIDE RECORDS SUMMARY | ~2019-09-03 | XMS | Encounter Summary ---
Demographics + + + | Address | [address] | | | [place] [address] | + + + | Home Phone | | + + + | Preferred Language | Unknown | + + + | Marital Status | | + + + | Pentecostal Affiliation | VANDA | + + + | Race | White | + + + | Ethnic Group | Not or | + + + Author + + + | Author | [facility] | + + + | Organization | [facility] | + + + | Address | Unknown | + + + | Phone | Unavailable | + + + Support + + + + + | Name | Relationship | Address | Phone | + + + + + | Josue Schaeffer | ECON | [address] | | | | | [place] [address] | | + + + + + | Dariana Dowling | ECON | Unknown | | + + + + + Care Team Providers + +------+ + | Care Machine Molder Name | Role | Phone | + +------+ + PCP | Unavailable | + +------+ + Encounter Details +--------+ + + + + | Date | Type | Department | Care Team | Description | +--------+ + + + + | 03/23/ | Abstract | AntiCoagulation | Charity Cartagena, | | | 2007 | ECX | Clinic [address] | CABINET WORKER [address] | | | | | [address] | [facility] | | | | | Mailcode: [id number] | [facility] [place] | | | | | Outpatient Clinic | [address] | | | | | [place] [address] | [phone] | | | | | [place], [place] | | | | | | [address] | | | | | | [phone] | | | +--------+ + + + [...] + +--------+ + + + | INR (PT), POC | Routin | 03/22/2006 | | Results for this | | | e | | | procedure are in the | | | | | | results section. | + +--------+ + + + documented in this encounter Results INR (PT), POC (03/22/2006) + +-------+ + + + | Component | Value | Ref Range | Performed | Pathologist | | | | | At | Signature | + +-------+ + + + | [facility] | 4.0 | | OUTSIDE LAB | | | TIME | | | | | | (INR), POC | | | | | + +-------+ + + + + + | Specimen | + + | Blood | + + + +---------+ + + | Performing | Address | City/State/Zipcode | Phone Number | | Organization | | | | + +---------+ + + | NON [facility] | | | | + +---------+ + + | OUTSIDE LAB | | | | + +---------+ + + documented in this encounter Visit Diagnoses Not on filedocumented in this encounter"
--- OUTSIDE RECORDS SUMMARY | ~2019-09-03 | XMS | Encounter Summary ---
Demographics + + + | Address | [address] | | | [place] [address] | + + + | Home Phone | | + + + | Preferred Language | Unknown | + + + | Marital Status | | + + + | Hinduism Affiliation | VANDA | + + + [...] Josue Schaeffer | ECON | [address] | | | | | [place] [address] | | + + + + + | Dariana Dowling | ECON | Unknown | | + + + + + Care Team Providers + +------+ + | Care Structural Steel Painter Name | Role | Phone | + +------+ + | Josiah Walls MD | PCP | | + +------+ + Encounter Details +--------+ + + + + | Date | Type | Department | Care Team | Description | +--------+ + + + + | 12/31/ | Documentati | Cardiology | SteBandar bailey, | | | 2011 | on | Arrhythmia at [facility] | [address] | | | | | [address] | [address] | | | | | [facility] | [place], [place] | | | | | and Healing, | [address] | | | | | [facility] | [phone] | | | | | Floor [place], [place] | | | | | | [address] | | | | | | [phone] | | | +--------+ + + + [...]
--- OUTSIDE RECORDS SUMMARY | ~2019-09-03 | XMS | Encounter Summary ---
Demographics + + + | Address | [address] | | | [place] [address] | + + + | Home Phone | | + + + | Preferred Language | Unknown | + + + | Marital Status | | + + + | Oriental Orthodox Affiliation | VANDA | + + + | Race | White | + + + | Ethnic Group | Not or | + + + Author + + + | Author | [facility] | + + + | Organization | [facility] | + + + | Address | Unknown | + + + | Phone | Unavailable | + + + Support + + + + + | Name | Relationship | Address | Phone | + + + + + | Josue Schaeffer | ECON | [address] | | | | | [place] [address] | | + + + + + | Dariana Dowling | ECON | Unknown | | + + + + + Care Team Providers + +------+ + | Care Internal Grinder Set Up Operator Name | Role | Phone | [...] | +--------+ + + + + | 12/24/ | Telephone | Cardiology CARLO at | Emanuel Morgan, | Other | | 2009 | | [facility] [address] | | | | | | [facility] | | | | | | Health and Healing, | | | | | | Building | | | | | | Floor [place], [place] | | | | | | [address] | | | | | | [phone] | | | +--------+ + + + [...]
--- OUTSIDE RECORDS SUMMARY | ~2019-09-03 | XMS | Encounter Summary ---
Demographics + + + | Address | [address] | | | [place] [address] | + + + | Home Phone [...] Josue Schaeffer | ECON | [address] | | | | | [place] [address] | | + + + + + | Dariana Dowling | ECON | Unknown | | + + + + + Care Team Providers + +------+ + | Care Research Staff Member Name | Role | Phone | + +------+ + PCP | Unavailable | + +------+ + Encounter Details +--------+ + + + + | Date | Type | Department | Care Team | Description | +--------+ + + + + | 05/17/ | Office | General Internal | Note, Outpatient | Progress Note | | 1996 | Visit-Trans | Medicine [address] | Clinic | | | | yovani | [address] | | | | | | Mailcode: [id number] | | | | | | Outpatient Clinic | | | | | | [facility], [address] | | | | | | [place], [place] | | | | | | [address] | | | | | | [phone] | | | +--------+ + + + [...] as of this encounter Progress Notes Interface, Business Systems Architect In - 04/10/2006 1:09 AM [facility] CLINIC DATE: 05/17/96 NEUROLOGY CLINIC SUBJECTIVE: The patient is followed here for cardiac problems and valve replacement as well as sinus disease and referred by Dr. Rao of cardiology for evaluation. She has dizziness and imbalance, which is getting worse in recent months. On reviewing the history with her, there are two kinds of spasms, plus history of migraine earlier in life with some scintillating episodes, not a present problem. The two patterns I think are different and are separate entities. One is periods of cramping in the hands and tingling and numbness in the fingers and forearm, partway up the arm. These sound like hyperventilation syndrome, although she denies this, which is often the case. I think she ought to test by breathing into a bag when she gets these to see if it stops. The other more troublesome syndrome is sudden episodes of vertigo. She may be making the bed and all of a sudden becomes vertiginous with the room spinning, becomes ataxic, very nauseated and throws up and has to go to bed and this may last quite a long time. It may last all day. She is not sure if putting her head into a position will provoke it but there is a suggestion of postural component. There is no perioral numbness, diplopia or loss of consciousness. She is young and has no vascular risk factors except, of course, Coumadin therapy for her valve replacement. 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 There is a risk of emboli. However, she has had many of the spells and it would be extremely unlikely they were stereotyped emboli from the heart. She has no hearing loss with this, does have tinnitus from time to time. She thinks the tinnitus is in the left ear. She has no history of head injury. She has had no recent virus before the spells. OBJECTIVE: On exam, she is bright, alert and cooperative. Gait and station are normal, tandem walk normal. There is no Romberg. There is no ataxia of gait, no weakness in heel and toe walking. Cranial nerves are totally normal. There is normal fundi, eye movements full. There is no nystagmus with putting her head in any position, lying down, sitting up, turning right or left, etc. I could not provoke nystagmus by changing body or head position. Eye movements are full, no diplopia. Hearing is good to finger rub and visual acuity normal to confrontation as are the ribeiro. The rest of the cranial nerves are normal. Coordination: Finger to nose normal, strength normal, reflexes 2+ and symmetrical in upper and lower extremities, no pathological reflexes. Sensory is normal to touch and vibration sense. Cardiac is unremarkable in terms of there being no arrhythmia or bruits. 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 She has no risk factors for vascular disease other than the cardiac history. I don't think she is having arrhythmia to account for this. She doesn't think so either and neither does Dr. Rao apparently. I think it is unlikely she has acoustic neurinoma and rather than send her for a scan as she had normal CT, and I don't know if we can do MRI scan with these titanium valves, I would prefer to send her to someone experienced in the vestibular testing arena, and referred her to Dr. Bolton in the ENT department here. We will go from there after we hear what Dr. Bolton has to say. Shan Vargas M.D. Professor and Multiple Punch Press Operator, Department of Neurology CORRINA:halima cc: Maxwell Garcia M.D. Professor, Otolaryngology Head and Neck Surgery Gorge Rao M.D. Professor, Medicine Division of Cardiology Ihsan Carias M.D. Professor, Surgery Chief, Division of Cardiopulmonary Surgery CHIRAG ARZOLA [facility] [address] [facility] [address] documented in this encounter Plan of Treatment Not on filedocumented as of this encounter Visit Diagnoses Not on filedocumented in this encounter"
--- OUTSIDE RECORDS SUMMARY | ~2019-09-03 | XMS | Encounter Summary ---
Demographics + + + | Address | [address] | | | [place] [address] | + + + | Home Phone | | + + + | Preferred Language | Unknown | + + + | Marital Status | | + + + | Orthodoxy Affiliation | VANDA | + + + [...] | | | | | [place] [address] | | + + + + + | Dariana Dowling | ECON | Unknown | | + + + + + Care Team Providers + +------+ + | Care Web Mobile Designer Name | Role | Phone | + +------+ + PCP | Unavailable | + +------+ + Encounter Details +--------+ + + + + | Date | Type | Department | Care Team | Description | +--------+ + + + + | 11/17/ | Results | | Maxwell Garcia | | | 1994 | Only | | [address] | | | | | | [place] | | | | | | [place] [address] | | +--------+ + + + + [...] | + +--------+ + + + | CT SINUSITIS SCREEN | Routin | 11/17/1994 | | Results for this | | | e | 2:00 PM | | procedure are in the | | | | PDT | | results section. | + +--------+ + + + documented in this encounter Results CT SINUSITIS SCREEN (11/17/1994 2:00 PM PDT) + + + + + + | Component | Value | Ref Range | Performed | Pathologist | | | | | At | Signature | + + + + + + | CT | Radiologist 1: ALEXX | | | | | SINUSITIS | Dwight OTTO-Radiologist | | | | | SCREEN | 2: Dwight COFFEY | | | | | | MARIA ALEJANDRA WILLAMS | | | | | | | | | | | | | | | | | | CT | | | | | | SCREENING STUDY OF THE | | | | | | SINUSES: 11/17/94 | | | | | | Dictated: 11/19/94 | | | | | | PROCEDURE: A screening | | | | | | exam of the paranasal | | | | | | sinuses was performed | | | | | | incoronal plane. | | | | | | FINDINGS: Abnormal | | | | | | soft tissue is noted to | | | | | | nearly completely | | | | | | opacifythe ethmoid air | | | | | | cells bilaterally. | | | | | | Soft tissue thickening | | | | | | and anair-fluid level | | | | | | is noted within the left | | | | | | frontal as well as | | | | | | bothsphenoid sinuses. | | | | | | Abnormal soft tissue | | | | | | with an undulating | | | | | | horizontalmargin is | | | | | | noted within both | | | | | | maxillary sinuses. | | | | | | Likely a polyp isnoted | | | | | | within the nasal cavity | | | | | | on the left side. | | | | | | IMPRESSION: Findings of | | | | | | pansinusitis are noted | | | | | | with the air-fluid seen. | | | | | | There islikely a | | | | | | nasal polyp on the left. | | | | | | END OF IMPRESSION: | | | | + + + + + + + + | Specimen | + + | | + + + +---------+ + + | Performing | Address | City/State/Zipcode | Phone Number | | Organization | | | | + +---------+ + + | [facility] | | | | | RADIOLOGY | | | | + +---------+ + + documented in this encounter Visit Diagnoses Not on filedocumented in this encounter"
--- OUTSIDE RECORDS SUMMARY | ~2019-09-03 | XMS | Encounter Summary ---
Demographics + + + | Address | [address] | | | [place] [address] | + + + | Home Phone | | + + + | Preferred Language | Unknown | + + + | Marital Status | | + + + | Taoist Affiliation | VANDA | + + + | Race | White | + + + | Ethnic Group | Not or | + + + Author + + + | Author | [facility] | + + + | Organization | [facility] | + + + | Address | Unknown | + + + | Phone | Unavailable | + + + Support + + + + + | Name | Relationship | Address | Phone | + + + + + | Josue Schaeffer | ECON | [address] | | | | | [place] [address] | | + + + + + | Dariana Dowling | ECON | Unknown | | + + + + + Care Team Providers + +------+ + | Care Pin Inserter Regulator Name | Role | Phone | + +------+ + PCP | Unavailable | + +------+ + Encounter Details +--------+ + + + + | Date | Type | Department | Care Team | Description | +--------+ + + + + | 11/19/ | Office | General Internal | Note, Outpatient | Progress Note | | 1994 | Visit-Trans | Medicine [address] | Clinic | | | | yovani | [address] | | | | | | Mailcode: [id number] | | | | | | Outpatient Clinic | | | | | | [facility], [address] | | | | | | [place], [place] | | | | | | [address] | | | | | | [phone] | | | +--------+ + + + [...] as of this encounter Progress Notes Interface, Wafer Line Worker In - 05/19/2006 5:11 AM PDT CLINIC DATE: 11/19/94 OTOLARYNGOLOGY CLINIC: SUBJECTIVE: Mrs. Schaeffer was seen by Dr. Rao in cardiology after I saw her Wednesday. He did an echocardiogram and their feeling is that this represents a mitral stenosis and an aortic stenosis as well. He thinks her risks with general anesthetic is quite great and she needs open heart surgery. All things being equal, they would like to do the open heart surgery as soon as possible. Because of the risk to doing the polyps which I think is an elective procedure, we have decided to go ahead and do the open-heart surgery first and then would do her sinus surgery later, even though she would have to be on Coumadin and this would have to be reversed. In the meantime, I have suggested that we try her on a short course of steroids and that she use Afrin nasal spray to relieve her nasal symptoms. Antibiotics would be used as necessary. As a consequence of this, I have called Mrs. Schaeffer and discussed this with her. I have called in a Medrol Dosepak to be used. Unfortunately, they do not like to have steroids used immediately before open heart surgery because of the increased risk to sternal breakdown but they said that as long as she was off of it for a week to 10 days before hand it would be OK. She also is to use the Afrin twice a day. I will see her when she comes into the hospital with her surgery being scheduled, I think, for December 14. I have contacted Dr. Hartman to let him know about this. Maxwell Garcia M.D. Professor, Otolaryngology Head and Neck Surgery JS:amisha documented in this encounter Plan of Treatment Not on filedocumented as of this encounter Visit Diagnoses Not on filedocumented in this encounter"
--- OUTSIDE RECORDS SUMMARY | ~2019-09-03 | XMS | Encounter Summary ---
Demographics + + + | Address | [address] | | | [place] [address] | + + + | Home Phone | | + + + | Preferred Language | Unknown | + + + | Marital Status | | + + + | Yazidi Affiliation | VANDA | + + + | Race | White | + + + | Ethnic Group | Not or | + + + Author + + + | Author | [facility] | + + + | Organization | [facility] | + + + | Address | Unknown | + + + | Phone | Unavailable | + + + Support + + + + + | Name | Relationship | Address | Phone | + + + + + | Josue Schaeffer | ECON | [address] | | | | | [place] [address] | | + + + + + | Dariana Dowling | ECON | Unknown | | + + + + + Care Team Providers + +------+ + | Care Germ Drier Name | Role | Phone | + +------+ + PCP | Unavailable | + +------+ + Encounter Details +--------+ + + + + | Date | Type | Department | Care Team | Description | +--------+ + + + + | 08/09/ | Office | General Internal | Note, Outpatient | Progress Note | | 1995 | Visit-Trans | Medicine [address] | Clinic | | | | yovani | [address] | | | | | | Mailcode: [id number] | | | | | | Outpatient Clinic | | | | | | [facility], [address] | | | | | | [place], [place] | | | | | | [address] | | | | | | [phone] | | | +--------+ + + + [...] as of this encounter Progress Notes Interface, Rewinder Operator In - 05/02/2006 6:00 AM PDT CLINIC DATE: 08/10/95 OTOLARYNGOLOGY CLINIC: SUBJECTIVE: Mrs. Schaeffer returns at this time doing well. She started to notice a little dryness in her nose with the dry weather in [place]. She has also had occasional frontal headaches, but they have not been severe. OBJECTIVE: NOSE: The patient was quite well decongested. She was sprayed with an ephedrine and Xylocaine solution. She had two little crusts way posteriorly near the face of the sphenoid, one on each side, but otherwise was clear. She was examined with the flexible nasopharyngoscope. The ethmoid blocks on both sides look clear, with no polyps and good mucosa. The sphenoid is open bilaterally. Both natural windows are open. The mucosa on the right side looks normal. The left side looked good, although there was a little bit of edematous mucosa left on the floor of the sinus. MOUTH AND OROPHARYNX: No lesions seen. ASSESSMENT: Excellent postoperative course. PLAN: The patient is to continue her Flonase. She will use Calypso spray prn for the dryness. She will return to clinic in four months. Maxwell Garcia M.D. Professor, Otolaryngology Head and Neck Surgery MALIA/opal cc: JACK BENOIT MD CARDIOLOGY [facility] documented in this encounter Plan of Treatment Not on filedocumented as of this encounter Visit Diagnoses Not on filedocumented in this encounter"
--- OUTSIDE RECORDS SUMMARY | ~2019-09-03 | XMS | Encounter Summary ---
Demographics + + + | Address | [address] | | | [place] [address] | + + + | Home Phone | | + + + | Preferred Language | Unknown | + + + | Marital Status | | + + + | Episcopal Affiliation | VANDA | + + + | Race | White | + + + | Ethnic Group | Not or | + + + Author + + + | Author | [facility] | + + + | Organization | [facility] | + + + | Address | Unknown | + + + | Phone | Unavailable | + + + Support + + + + + | Name | Relationship | Address | Phone | + + + + + | Josue Schaeffer | ECON | [address] | | | | | [place] [address] | | + + + + + | Dariana Dowling | ECON | Unknown | | + + + + + Care Team Providers + +------+ + | Care Complaint Inspector Name | Role | Phone | + +------+ + PCP | Unavailable | + +------+ + Encounter Details +--------+ + + + + | Date | Type | Department | Care Team | Description | +--------+ + + + + | 01/18/ | Office | General Internal | Note, Outpatient | Progress Note | | 1996 | Visit-Trans | [address] | Clinic | | | | yovani | [address] | | | | | | Mailcode: [id number] | | | | | | Outpatient Clinic | | | | | | [facility], [address] | | | | | | [place], [place] | | | | | | [address] | | | | | | [phone] | | | +--------+ + + + [...] as of this encounter Progress Notes Interface, Rcp In - 03/17/2006 3:05 AM PST CLINIC DATE: 01/18/97 OTOLARYNGOLOGY CLINIC SUBJECTIVE: The patient has previously been followed by Dr. Maxwell Garcia. I did see her in May, at which time her chronic sinusitis nasal polyps were under moderate control. She states that she has been having increasing postnasal drainage and a sore throat. She started herself on Clindamycin last , and she has enough of that for a week. She says she was very hoarse prior to this, and developed severe odynophagia last week. The postnasal drainage has generally been yellow. She is using normal saline spray. In addition, the patient uses Ventolin, and her chest has been more tight lately since her throat has been sore. OBJECTIVE: Her nose is decongested and cocainized. The 30-degree scope is used. The right side is initially examined. There is minimal mucus found in the nose, although she does have some mucus in the right sphenoid sinus. The natural ostium actually looks quite good. Her ethmoid area really has minimal swelling on this side. On the left, she has some polypoid changes, but they are not severe superiorly. The left sphenoid sinus is opened without mucus. There are no bleeding sites. Her posterior airway is actually quite good. ASSESSMENT: This is a patient with a long history of asthma, nasal polyps, sinusitis, now with an acute exacerbation on about her fifth day of antibiotics. Her history has been that she never completely resolves these symptoms with short-term antibiotics. PLAN: At this point I am going to write for Clindamycin, 300 mg q.i.d. for an additional ten days, and, when she finishes her week's worth, if she still has some symptoms, I think she should finish this second course. In addition, I am going to have her use Gentamicin saline in her nose. I gave her enough to last probably for one month. If she clears this up and has other problems, she will return in May 1997. If she does not clear completely, I have asked her to call. I think we would need to reassess her, and see if we can get this under control before the winter continues. Liz Tejada M.D. Seismic Prospecting Observer, Otolaryngology/Head and Neck Surgery LH/abhishek cc: Emanuel Morgan M.D. Professor, Medicine Division of Cardiology documented in this encounter Plan of Treatment Not on filedocumented as of this encounter Visit Diagnoses Not on filedocumented in this encounter"
--- OUTSIDE RECORDS SUMMARY | ~2019-09-03 | XMS | Encounter Summary ---
Demographics + + + | Address | [address] | | | [place] [address] | + + + | Home Phone | | + + + | Preferred Language | Unknown | + + + | Marital Status | | + + + | Methodist Affiliation | VANDA | + + + | Race | White | + + + | Ethnic Group | Not or | + + + Author + + + | Author | [facility] | + + + | Organization | [facility] | + + + | Address | Unknown | + + + | Phone | Unavailable | + + + Support + + + + + | Name | Relationship | Address | Phone | + + + + + | Josue Schaeffer | ECON | [address] | | | | | [place] [address] | | + + + + + | Dariana Dowling | ECON | Unknown | | + + + + + Care Team Providers + +------+ + | Care Electric Blasting Cap Assembler Name | Role | Phone | + +------+ + | Josiah Walls MD | PCP | | + +------+ + Reason for Visit + + + | Reason | Comments | + + + | Palpitations | | + + + Encounter Details +--------+ + + + + | Date | Type | Department | Care Team | Description | +--------+ + + + + | 12/17/ | Telephone | Cardiology | Mayra Ivy, | Palpitations | | 2009 | | Arrhythmia at [facility] | REGENERATION OPERATOR | | | | | [address] | | | | | | [facility] | | | | | | and Healing, | | | | | | Building | | | | | | Floor [place], [place] | | | | | | [address] | | | | | | [phone] | | | +--------+ + + + [...]
--- OUTSIDE RECORDS SUMMARY | ~2019-09-03 | XMS | Encounter Summary ---
Demographics + + + | Address | [address] | | | [place] [address] | + + + | Home Phone | | + + + | Preferred Language | Unknown | + + + | Marital Status | | + + + | Yazdanism Affiliation | VANDA | + + + | Race | White | + + + | Ethnic Group | Not or | + + + Author + + + | Author | [facility] | + + + | Organization | [facility] | + + + | Address | Unknown | + + + | Phone | Unavailable | + + + Support + + + + + | Name | Relationship | Address | Phone | + + + + + | Josue Schaeffer | ECON | [address] | | | | | [place] [address] | | + + + + + | Dariana Dowling | ECON | Unknown | | + + + + + Care Team Providers + +------+ + | Care Holiday Detector Operator Name | Role | Phone | + +------+ + | Josiah Walls MD | PCP | | + +------+ + Encounter Details +--------+ + + + + | Date | Type | Department | Care Team | Description | +--------+ + + + + | 04/11/ | In Processing Instructor | Cardiology [facility] at | Emanuel Morgan, | Mitral valve | | 2010 | | [facility] [address] | MD | disorder 424.0; | | | | [facility] | | Aortic valve | | | | [facility], | | disorder 424.1 | | | | Building | | | | | | Floor [place], [place] | | | | | | [address] | | | | | | [phone] | | | +--------+ + + + [...] Not on filedocumented as of this encounter Results CH - INR (PROTHROMBINTIME) (05/21/2010 9:47 AM PDT) + + + + + + | Component | Value | Ref Range | Performed | Pathologist | | | | | At | Signature | + + + + + + | [facility] | 4.2 (H)Comment: PT | 0.9 - 1.2 INR | [facility] | | | | INR Therapeutic ranges | | DEPARTMENT | | | | for full | | OF | | | | anticoagulation: INR | | PATHOLOGY | | | | for Venous | | | | | [...] + | Blood | + + + + + | Narrative | Performed At | + + + | no tube sent for confermation | [facility] | | | DEPARTMENT OF | | | PATHOLOGY | + + + + + + + + | Performing | Address | City/State/Zipcode | Phone Number | | Organization | | | | + + + + + | [facility] DEPARTMENT OF | [address] | [place] [address] | | | PATHOLOGY | [address] | | | + + + + + INR (05/21/2010 9:36 AM PDT) + + + + + + | Component | Value | Ref Range | Performed | Pathologist | | | | | At | Signature | + + + + + + | INR | See cmnt | 0.90 - 1.20 INR | [facility] | | | | | | DEPARTMENT | | | | | | OF | | | | | | PATHOLOGY | | + + + + + + + + | Specimen | + + | Blood - Blood | + + + + + | Narrative | Performed At | + + + | Erroneous request. | [facility] | | | DEPARTMENT OF | | | PATHOLOGY | + + + + + + + + | Performing | Address | City/State/Zipcode | Phone Number | | Organization | | | | + + + + + | [facility] DEPARTMENT OF | [address] | [place] [address] | | | PATHOLOGY | [address] | | | + + + + + documented in this encounter Visit Diagnoses + + | Diagnosis | + + | Mitral valve disorder 424.0 Mitral valve disorders | + + | Aortic valve disorder 424.1 Aortic valve disorders | + + documented in this encounter"
--- OUTSIDE RECORDS SUMMARY | ~2019-09-03 | XMS | Encounter Summary ---
Demographics + + + | Address | [address] | | | [place] [address] | + + + | Home Phone | | + + + | Preferred Language | Unknown | + + + | Marital Status | Single | + + + | Jewish Affiliation | 1064 | + + + | Race | Unknown | + + + | Ethnic Group | Unknown | + + + Author + + + | Author | [facility] | | | and [place] | + + + | Organization | [facility] | | | and [place] [...] Team Providers + +------+ + | Care Ladle Mechanic Name | Role | Phone | + +------+ + PCP | Unavailable | + +------+ + Encounter Details +--------+ + + + + | Date | Type | Department | Care Team | Description | +--------+ + + + + | 06/13/ | [facility] | [facility] | Dejon Mcgill | | | 2004 | Encounter | MED CTR XRAY [address] | MD Francisco J[address] | | | | | [place] | [place], [place] | | | | | [place] [address] | [address] | | | | | [phone] | | | +--------+ + + + [...]
--- OUTSIDE RECORDS SUMMARY | ~2019-09-03 | XMS | Encounter Summary ---
Demographics + + + | Address | [address] | | | [place] [address] | + + + | Home Phone [...] Josue Schaeffer | ECON | [address] | | | | | [place] [address] | | + + + + + | Dariana Dowling | ECON | Unknown | | + + + + + Care Team Providers + +------+ + | Care Wind Farm Engineer Name | Role | Phone | + +------+ + PCP | Unavailable | + +------+ + Encounter Details +--------+ + + + + | Date | Type | Department | Care Team | Description | +--------+ + + + + | 04/21/ | Discharge | Allergy Clinic at | Summary, Discharge | D/C Summary ODDS | | 1995 | Summary-Tra | [facility] [address] | | | | | nscribed | [address] | | | | | | Royer Muse | | | | | | [facility], [address] [place] [address] | | | | | | [place], [place] | | | | | | [address] | | | | | | [phone] | | | +--------+ + + + [...] as of this encounter Discharge Summaries Interface, Turkey Roll Maker In - 05/09/2006 5:10 AM PDT [address] [address] [facility] MEDICAL SUMMARY OF HOSPITALIZATION Med Rec No.: [id number] Admission Date: 04/13/95 Name: Maria Alejandra Schaeffer Discharge Date: 04/22/95 STAFF PHYSICIAN: Maxwell Garcia M.D. Professor, Otolaryngology Head and Neck Surgery PRINCIPAL FINAL DIAGNOSIS: Chronic sinusitis. ADDITIONAL DIAGNOSIS(ES): Status-post mitral and aortic valve replacement, . PRINCIPAL PROCEDURE: Endoscopic sinus surgery; bilateral intranasal ethmoidectomy, sphenoidotomy, middle turbinectomy and maxillary antrostomies with left inferior nasal window. REASON FOR ADMISSION: The patient is a 54 year old female who has had chronic sinusitis for several years. She is status-post polypectomy in the past. She has chronic headache and frontal pressure associated with nasal obstruction and post-nasal drainage. PAST MEDICAL HISTORY: 1. The patient's past medical history is significant for rheumatic fever. 2. She also has a history of reactive airway disease. PAST SURGICAL HISTORY: 1. The patient had a mitral valve commissurotomy in 1976. 2. 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 CURRENT MEDICATIONS: 1. Ventolin metered-dose inhaler 2 puffs q. 6h p.r.n. 2. Prinivil 5 milligrams p.o. q.d. 3. Coumadin 2.5 milligrams q.d., 5 milligrams on Sundays and Wednesdays. 4. Multivitamin q.d. 5. Premarin 3 milligrams p.o. q.d. PHYSICAL EXAMINATION: HEENT: The patient's physical examination is notable for some bilateral nasal polyps, with no exudate. LUNGS: The lungs are clear to auscultation and percussion bilaterally. CARDIAC: There is a loud S1 and S2, with a two/six systolic ejection murmur. LABORATORY DATA: The patient's laboratory studies are within normal limits. The hematocrit is 34. HOSPITAL COURSE: The patient with the above history was admitted to the hospital for surgery. She went to the operating room on 04-14-95. Her Coumadin had been held for three days, and her coagulation studies were normal. She underwent the aforementioned procedure without difficulty. Packs were placed in both nares. Postoperatively, the patient was placed on heparin for anticoagulation. She had some intermittent bleeding from her nose. Her heparin levels were followed, as was her hematocrit. Her bleeding was controlled with some Oxycel gauze. Her packs were continued for three days. She was also continued on intravenous antibiotics during this time. Her packs were then removed, and she had some intermittent bleeding. This was controlled by stopping her heparin and cleaning out her nose. She was then re-started on her Coumadin and this was increased to within therapeutic range. Her bleeding was controlled, and she was placed on [place] nasal spray. She was continued on antibiotics. On 04-22-95, the patient had no significant bleeding, she was doing well, and she was felt to be ready for discharge. DISCHARGE DISPOSITION: The patient was discharged to home. CONDITION ON DISCHARGE: The patient's condition at the time of the patient's discharge was good. DISCHARGE INSTRUCTION(S): 1. Diet - regular. 2. Activity - the patient was cautioned regarding not blowing her nose and she was also warned with regard to straining. 3. The patient is to return to clinic in followup with Dr. Maxwell Garcia in one week. 4. She is also to be seen in followup with the Anticoagulation Clinic on 04-27-95, to have her labs drawn. DISCHARGE MEDICATIONS: 1. Coumadin will be continued at the pre-admission regimen. 2. Augmentin 500 milligrams p.o. t.i.d. 3. Vicodin 1-2 p.o. q. 4-6h p.r.n. 4. [place] spray, 2 sprays to each nares q. 4h and p.r.n. 5. Pre-hospital medications will be continued in her usual regimen. Jaya Bassett M.D. Resident, Otolaryngology Head and Neck Surgery Maxwell Garcia M.D. Professor, Otolaryngology Head and Neck Surgery OLRA/ned cc: Gorge Rao M.D. Professor, Medicine Division of Cardiology PARKER MCGRATH M.D. [address] [facility] [address] DEBI CHANDLER MD [address] [place] [address] documented in this encounter Plan of Treatment Not on filedocumented as of this encounter Visit Diagnoses Not on filedocumented in this encounter"
--- OUTSIDE RECORDS SUMMARY | ~2019-09-03 | XMS | Encounter Summary ---
Demographics + + + | Address | [address] | | | [place] [address] | + + + | Home Phone | | + + + | Preferred Language | Unknown | + + + | Marital Status | | + + + | Buddhist Affiliation | VANDA | + + + | Race | White | + + + | Ethnic Group | Not or | + + + Author + + + | Author | [facility] | + + + | Organization | [facility] | + + + | Address | Unknown | + + + | Phone | Unavailable | + + + Support + + + + + | Name | Relationship | Address | Phone | + + + + + | Josue Schaeffer | ECON | [address] | | | | | [place] [address] | | + + + + + | Dariana Dowling | ECON | Unknown | | + + + + + Care Team Providers + +------+ + | Care Accounts Adjustable Clerk Name | Role | Phone | + +------+ + PCP | Unavailable | + +------+ + Encounter Details +--------+ + + + + | Date | Type | Department | Care Team | Description | +--------+ + + + + | 09/29/ | Results | Cardiology - | Emanuel Morgan, | | | 1999 | Only | General [address] | | | | | | [address] | | | | | | Mailcode: [id number] | | | | | | [address] | | | | | | [address] [place], | | | | | | [place] [address] | | | | | | [phone] | | | +--------+ + + + [...] | + +--------+ + + + | COAG MASTER PANEL | Routin | 09/30/1999 | | Results for this | | | e | 12:01 PM | | procedure are in the | | | | PDT | | results section. | + +--------+ + + + | INR | Routin | 09/30/1999 | | Results for this | | | e | 12:01 PM | | procedure are in the | | | | PDT | | results section. | + +--------+ + + + documented in this encounter Results PROTHROMBIN TIME (09/30/1999 12:01 PM PDT) + + + + + + | Component | Value | Ref Range | Performed | Pathologist | | | | | At | Signature | + + + + + + | INR | 4.34 (H)Comment: | 0.98 - 1.08 INR | [facility] | | | | PT INR Therapeutic | | DEPARTMENT | | | | ranges for full | | OF | | | | anticoagulation: | | PATHOLOGY | | | | INR for | | | | | | Venous Thromboembolism | | | | | | | | | | | | (2.0-3.0)INR | | | | | | INR for most | | | | | | patients with mech. | | | | | | valves (2.5-3.5)INR | | | | + + + + + + + + | Specimen | + + | | + + + + + + + | Performing | Address | City/State/Zipcode | Phone Number | | Organization | | | | + + + + + | [facility] DEPARTMENT OF | [address] | [place] [address] | | | PATHOLOGY | [address] | | | + + + + + | [place] DEPARTMENT OF | [address] | [place] [address] | | | PATHOLOGY | [address] | | | + + + + + COA MASTER PANEL (09/30/1999 12:01 PM PDT) + + + + + + | Component | Value | Ref Range | Performed | Pathologist | | | | | At | Signature | + + + + + + | INR | 4.34 (H)Comment: | 0.98 - 1.08 INR | [facility] | | | | PT INR Therapeutic | | DEPARTMENT | | | | ranges for full | | OF | | | | anticoagulation: | | PATHOLOGY | | | | INR for | | | | | | Venous Thromboembolism | | | | | | | | | | | | (2.0-3.0)INR | | | | | | INR for most | | | | | | patients with mech. | | | | | | valves (2.5-3.5)INR | | | | + + + + + + + + | Specimen | + + | | + + + + + + + | Performing | Address | City/State/Zipcode | Phone Number | | Organization | | | | + + + + + | [facility] | [address] | [place] [address] | | | PATHOLOGY | [address] | | | + + + + + | [facility] | [address] | [place] [address] | | | PATHOLOGY | [address] | | | + + + + + documented in this encounter Visit Diagnoses Not on filedocumented in this encounter"
--- OUTSIDE RECORDS SUMMARY | ~2019-09-03 | XMS | Encounter Summary ---
Demographics + + + | Address | [address] | | | [place] [address] | + + + | Home Phone | | + + + | Preferred Language | Unknown | + + + | Marital Status | | + + + | Confucianism Affiliation | VANDA | + + + [...] | | | | | [place] [address] | | + + + + + | Dariana Dowling | ECON | Unknown | | + + + + + Care Team Providers + +------+ + | Care Detasseling Crew Supervisor Name | Role | Phone | + +------+ + PCP | Unavailable | + +------+ + Encounter Details +--------+ + + + + | Date | Type | Department | Care Team | Description | +--------+ + + + + | 06/27/ | Transcribed | | Dictation, Other | [...] as of this encounter Progress Notes Interface, Certified Procedural Coder In - 12/03/2005 3:07 AM [facility] [place] [address] [address] or June 27, 2000 Michael Newby M.D. [facility] [address] [place] [address] RE: MARIA ALEJANDRA MILES MR #: [id number] Dear Dr. Grover: I had the pleasure of seeing Mrs. Maria Alejandra Miles in followup while she was here at [facility] for her I-123 uptake and scan. She appears to be significantly improved after her difficulty with shortness of breath and some pedal edema. As you may know, she underwent an echocardiogram to rule out congestive heart failure contributing to her symptoms. I have spoken with Dr. Emanuel Morgan, her motor builder winder who indicated that this showed normal LV function and thinks that her symptoms were likely related to resolving pneumonia. She again has significantly improved at this time, and Dr. Morgan has been increasing her beta fide which helps with blocking symptoms related to her hyperthyroidism as well as a diuretic. On examination today, even though she has been off her antithyroid medications for the last week in preparation for her I-123 scan, she is now without tremor or tachycardia. Her proximal muscle strength is normal. She has no Graves' eye findings. Laboratories 1 week ago, before she discontinued her Tapazole included a free T4 which was 1.46 while she was taking Tapazole 30 mg p.o. q.d. Her uptake and scan today reveal diffusely increased uptake without evidence of multinodularity with an uptake of over 80%, consistent with Graves' disease. I discussed with her definitive treatment for her Graves' disease today including antithyroid medications for a prolonged period to try to achieve a remission versus I-131 ablative therapy. She is in favor of ablative therapy in hopes she will more rapidly deal with this issue and was treated with 10 mc of I-131. I have asked her to restart her Tapazole at 30 mg per day as it appears that this is the dose which adequately is controlling her thyroid level. She will need to continue this for the next several months while her radioactive iodine takes effect. I will follow monthly thyroid function tests, particularly a free T4 to adjust the dose of this medication, and hopefully discontinue it. I am sending her a laboratory slip to have laboratories done there in 1 month and have asked her to return to clinic in 2 months. I would like to thank you for allowing me to manage Mrs. Miles with regard to her Graves' disease. If you have any questions regarding the interpretation of her test done here today or our management plan, please do not hesitate to contact me here at [facility] at [phone]. Sincerely, Oralia Self M.D. [facility] [place] / [place]IAS [id number] / [id number] / [id number] / cc: Emanuel Morgan M.D. [facility] Cardiology [id number] signed by Interface, Certified Procedural Coder In at 12/03/2005 3:07 AM PDTdocume nted in this encounter Plan of Treatment Not on filedocumented as of this encounter Visit Diagnoses Not on filedocumented in this encounter"
--- OUTSIDE RECORDS SUMMARY | ~2019-09-03 | XMS | Encounter Summary ---
Demographics + + + | Address | [address] | | | [place] [address] | + + + | Home Phone | | + + + | Preferred Language | Unknown | + + + | Marital Status | | + + + | Taoist Affiliation | VANDA | + + + | Race | White | + + + | Ethnic Group | Not or | + + + Author + + + | Author | [facility] | + + + | Organization | [facility] | + + + | Address | Unknown | + + + | Phone | Unavailable | + + + Support + + + + + | Name | Relationship | Address | Phone | + + + + + | Josue Schaeffer | ECON | [address] | | | | | [place] [address] | | + + + + + | Dariana Dowling | ECON | Unknown | | + + + + + Care Team Providers + +------+ + | Care Halver Machine Operator Name | Role | Phone | + +------+ + PCP | Unavailable | + +------+ + Encounter Details +--------+ + + + + | Date | Type | Department | Care Team | Description | +--------+ + + + + | 05/19/ | Office | General Internal | Note, Outpatient | Progress Note | | 1995 | Visit-Trans | Medicine [address] | Clinic | | | | yovani | [address] | | | | | | Mailcode: [id number] | | | | | | Outpatient Clinic | | | | | | [facility], [address] | | | | | | [place], [place] | | | | | | [address] | | | | | | [phone] | | | +--------+ + + + [...] as of this encounter Progress Notes Interface, Blacksmith Apprentice In - 04/16/2006 6:58 AM PST CLINIC DATE: 05/20/95 OTOLARYNGOLOGY CLINIC: SUBJECTIVE: The patient returns at this time for follow-up of her sinus surgery. She has actually been doing fairly well, although she has been getting a little bit of purulent crusting still. She has been off the antibiotics for two weeks. OBJECTIVE: NOSE: The patient was sprayed with an ephedrine and Xylocaine solution. The area has really healed quite well, except she still has a little bit of granulation tissue and swollen mucosa around the face of the sphenoid on both sides and also a little bit on the roof of the ethmoid sinuses. Both windows into the maxillary sinus are nicely open. The mucosa in the maxillary sinus on the left side has some thickened cobblestone edema but no purulence. On the right side the mucosa looked near normal. ASSESSMENT: Good postoperative course. PLAN: I put the patient on Flonase. She is to continue her saline irrigations. She is to return to clinic in one month. Maxwell Garcia M.D. Professor, Otolaryngology Head and Neck Surgery [place] documented in this encounter Plan of Treatment Not on filedocumented as of this encounter Visit Diagnoses Not on filedocumented in this encounter"
--- OUTSIDE RECORDS SUMMARY | ~2019-09-03 | XMS | Encounter Summary ---
Demographics + + + | Address | [address] | | | [place] [address] | + + + | Home Phone [...] Josue Schaeffer | ECON | [address] | | | | | [place] [address] | | + + + + + | Dariana Dowling | ECON | Unknown | | + + + + + Care Team Providers + +------+ + | Care Automatic Blocker Name | Role | Phone | + +------+ + | Enoc Lee NP | PCP | | + +------+ + Reason for Visit + + + | Reason | Comments | + + + | Device Check | | + + + Encounter Details +--------+ + + + + | Date | Type | Department | Care Team | Description | +--------+ + + + + | 05/09/ | Documentati | Cardiology | Manuela Moreno NP | Device Check | | 2016 | on | Arrhythmia at [facility] | [address] | | | | | [address] | [place], [place] | | | | | [facility] | [address] | | | | | and [place], | [phone] | | | | | [place] [address] | | | | | | Floor [place], [place] | | | | | | [address] | | | | | | [phone] | | | +--------+ + + + [...]
--- OUTSIDE RECORDS SUMMARY | ~2019-09-03 | XMS | Encounter Summary ---
Demographics + + + | Address | [address] | | | [place] [address] | + + + | Home Phone | | + + + | Preferred Language | Unknown | + + + | Marital Status | Single | + + + | Adventism Affiliation | 1064 | + + + | Race | Unknown | + + + | Ethnic Group | Unknown | + + + Author + + + | Author | [facility] | | | and [place] | + + + | Organization | [facility] | | | and [place] [...] Team Providers + +------+ + | Care Chief Power Dispatcher Name | Role | Phone | + +------+ + PCP | Unavailable | + +------+ + Encounter Details +--------+ + + + + | Date | Type | Department | Care Team | Description | +--------+ + + + + | 07/29/ | Hospital | [facility] | | | | 2004 | Encounter | MED CTR XRAY [address] | | | | | | [address] | | | | | | [place] [address] | | | | | | [phone] | | | +--------+ + + + [...]
--- OUTSIDE RECORDS SUMMARY | ~2019-09-03 | XMS | Encounter Summary ---
Demographics + + + | Address | [address] | | | [place] [address] | + + + | Home Phone | | + + + | Preferred Language | Unknown | + + + | Marital Status | | + + + | Evangelical Affiliation | VANDA | + + + [...] | | | | | [place] [address] | | + + + + + | Dariana Dowling | ECON | Unknown | | + + + + + Care Team Providers + +------+ + | Care Director Clinical Operations Name | Role | Phone | + +------+ + PCP | Unavailable | + +------+ + Encounter Details +--------+ + + + + | Date | Type | Department | Care Team | Description | +--------+ + + + + | 04/23/ | Office | | Note, Outpatient | Progress Note | | 2004 | Visit-Trans | | Clinic | | | | cribed [...] as of this encounter Progress Notes Interface, Para Professional In - 09/06/2004 10:38 PM PDTClinic Date: 04/24/2003 Clinic: Otolaryngology Maria Alejandra returns today. She states that she had a recent sinus infection and is just completing a 2-week course of clindamycin. Overall, she is feeling much better and is having a much less discolored nasal discharged and postnasal drainage. She has started to notice an increase in her allergy symptoms which is usual for her at this time. Procedure Note: Diagnostic nasal endoscopy. Anesthesia: Lidocaine 4% topical. Description of Procedure: A 4-mm 30-degree nasal endoscope was passed into the right nasal passage. The maxillary antrostomy is patent. The ethmoid cavity is clear. There is no evidence of purulent secretions. The scope was passed in the left nasal passage. The maxillary antrostomy is patent. The ethmoid cavity is clear with the exception of a small polyp anteriorly. There is no purulent-appearing nasal discharge. The scope was removed. The patient tolerated the procedure well. Assessment and Plan: The patient with a history of recurrent sinus infections and previous sinus surgery who has just completed 2 weeks of a 3-week course of clindamycin for a sinus infection. On exam today, she shows no evidence of acute infection, and symptomatically, she has resolved. I have elected to have her stop the clindamycin at this point. I did refill her Flonase and gave her some samples and a prescription for Zyrtec. She will follow up with me as needed. Mayra Vega M.D. [facility] / MATTHIAS [id number] / [id number] / [id number] / Tdocumented in this encounter Plan of Treatment Not on filedocumented as of this encounter Visit Diagnoses Not on filedocumented in this encounter"
--- OUTSIDE RECORDS SUMMARY | ~2019-09-03 | XMS | Encounter Summary ---
Demographics + + + | Address | [address] | | | [place] [address] | + + + | Home Phone | | + + + | Preferred Language | Unknown | + + + | Marital Status | | + + + | Sikhism Affiliation | VANDA | + + + [...] Josue Schaeffer | ECON | [address] | | | | | [place] [address] | | + + + + + | Dariana Dowling | ECON | Unknown | | + + + + + Care Team Providers + +------+ + | Care Towel Hemmer Name | Role | Phone | + +------+ + | Josiah Walls MD | PCP | | + +------+ + Reason for Visit + + + | Reason | Comments | + + + | Hospital Admission | | + + + Encounter Details +--------+ + + + + | Date | Type | Department | Care Team | Description | +--------+ + + + + | 12/27/ | Telephone | Cardiology [facility] at | Emanuel Morgan, | Hospital Admission | | 2009 | | [facility] [address] | | | | | | [facility] | | | | | | [facility] and Healing, | | | | | | [facility] | | | | | | Floor [place], [place] | | | | | | [address] | | | | | | [phone] | | | +--------+ + + + [...]
--- OUTSIDE RECORDS SUMMARY | ~2019-09-03 | XMS | Encounter Summary ---
Demographics + + + | Address | [address] | | | [place] [address] | + + + | Home Phone | | + + + | Preferred Language | Unknown | + + + | Marital Status | | + + + | Jewish Affiliation | VANDA | + + + | Race | White | + + + | Ethnic Group | Not or | + + + Author + + + | Author | [facility] | + + + | Organization | [facility] | + + + | Address | Unknown | + + + | Phone | Unavailable | + + + Support + + + + + | Name | Relationship | Address | Phone | + + + + + | Josue Schaeffer | ECON | [address] | | | | | [place] [address] | | + + + + + | Dariana Dowling | ECON | Unknown | | + + + + + Care Team Providers + +------+ + | Care Ornamental Machine Operator Name | Role | Phone | + +------+ + PCP | Unavailable | + +------+ + Encounter Details +--------+ + + + + | Date | Type | Department | Care Team | Description | +--------+ + + + + | 10/14/ | Results | Cardiology - | Emanuel Morgan, | | | 2000 | Only | General [address] | | | | | | [address] | | | | | | Mailcode: [id number] | | | | | | [address] | | | | | | [address] [place], | | | | | | [place] [address] | | | | | | [phone] | | | +--------+ + + + [...] X-RAY CHEST 2 VIEW | Routin | 10/14/2000 | | Results for this | | | e | 2:39 PM | | procedure are in the | | | | PDT | | results section. | + +--------+ + + + documented in this encounter Results CHEST 2 VIEW (10/14/2000 2:39 PM PDT) + + + + + + | Component | Value | Ref Range | Performed | Pathologist | | | | | At | Signature | + + + + + + | CHEST, 2 | Radiologist 1: VIANEY, | | | | | VIEWS [place] | Kt CARRERA-Radiologist | | | | | STEREO | 2: GOLDY | | | | | | Kt KUMARCHEST - | | | | | | FRONTAL AND LATERAL | | | | | | VIEWS: 10/14/2000 | | | | | | Dictated 10/15/2000 | | | | | | COMPARISON: 06/23/00. | | | | | | FINDINGS: The pleural | | | | | | effusions have resolved. | | | | | | Again seen are | | | | | | mediansternotomy wires | | | | | | and a replaced mitral | | | | | | valve. The left | | | | | | atrialappendage and left | | | | | | atrium remain prominent | | | | | | in size. The lungs and | | | | | | costophrenic angles are | | | | | | clear. IMPRESSION: 1. | | | | | | Resolution of | | | | | | bilateral pleural | | | | | | effusions. 2. Surgical | | | | | | changes indicative of | | | | | | mitral valve | | | | | | replacement. 3. Clear | | | | | | lungs. END OF | | | | | | IMPRESSION: | | | | + + + + + + + + | Specimen | + + | | + + + +---------+ + + | Performing | Address | City/State/Zipcode | Phone Number | | Organization | | | | + +---------+ + + | [facility] DEPARTMENT OF | | | | | RADIOLOGY | | | | + +---------+ + + documented in this encounter Visit Diagnoses Not on filedocumented in this encounter"
--- OUTSIDE RECORDS SUMMARY | ~2019-09-03 | XMS | Encounter Summary ---
Demographics + + + | Address | [address] | | | [place] [address] | + + + | Home Phone | | + + + | Preferred Language | Unknown | + + + | Marital Status | | + + + | Quaker Affiliation | VANDA | + + + [...] Josue Schaeffer | ECON | [address] | | | | | [place] [address] | | + + + + + | Dariana Dowling | ECON | Unknown | | + + + + + Care Team Providers + +------+ + | Care Manufacturing Maintenance Manager Name | Role | Phone | [...] Car Echo | | | | | Mitral | MD Emanuel | [facility] [address] | | | | | valve | [address] | [address] | | | | | disorders([address] | [address] | [address] | | | | | 4.0) Aortic | [place], [place] | [address] | | | | | valve | [address] | Building, 2nd | | | | | disorders | | floor | | | | | Procedures | | [place], [place] | | | | | TRANSTHORACI | | [address] | | | | | C | | Phone: | | | | | ECHOCARDIOGR | | [phone] | | | | | AM, ADULT | | | +--------+--------+ + + + + Encounter Details +--------+ + + + + | Date | Type | Department | Care Team | Description | +--------+ + + + + | 04/26/ | Real Estate Associate Attorney | Cardiology [facility] at | Emanuel Morgan, | Mitral valve | | 2011 | | [address] | | disorder 424.0; | | | | e [facility] for | | Aortic valve | | | | [facility] and Healing, | | disorder 424.1 | | | | Building | | | | | | Floor [place], [place] | | | | | | [address] | | | | | | [phone] | | | +--------+ + + + [...] | + +--------+ + + + | TRANSTHORACIC | Routin | 06/07/2012 | Mitral valve | Results for this | | ECHOCARDIOGRAM, | e | 12:00 AM | disorder 424.0 | procedure are in the | | ADULT | | PDT | Aortic valve | results section. 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
--- OUTSIDE RECORDS SUMMARY | ~2019-09-03 | XMS | Encounter Summary ---
Demographics + + + | Address | [address] | | | [place] [address] | + + + | Home Phone | | + + + | Preferred Language | Unknown | + + + | Marital Status | | + + + | Taoism Affiliation | VANDA | + + + [...] Josue Schaeffer | ECON | [address] | | | | | [place] [address] | | + + + + + | Dariana Dowling | ECON | Unknown | | + + + + + Care Team Providers + +------+ + | Care Scrap Preparation Supervisor Name | Role | Phone | + +------+ + PCP | Unavailable | + +------+ + Encounter Details +--------+ + + + + | Date | Type | Department | Care Team | Description | +--------+ + + + + | 02/02/ | Office | General Internal | Note, Outpatient | Progress Note | | 1995 | Visit-Trans | Medicine [address] | Clinic | | | | yovani | [address] | | | | | | Mailcode: [id number] | | | | | | Outpatient Clinic | | | | | | [facility], [address] | | | | | | [place], [place] | | | | | | [address] | | | | | | [phone] | | | +--------+ + + + [...] as of this encounter Progress Notes Interface, Sustainable Agriculture Specialist In - 04/20/2006 1:08 AM PDT CLINIC DATE: 02/03/96 CARDIOLOGY CLINIC: SUBJECTIVE: Ms. 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 She is status post aortic and mitral valve replacement. She has had no paroxysmal nocturnal dyspnea or orthopnea. She sleeps on approximately one pillow. She has been bothered by some rapid heart beats back in November, although she has not had similar episodes since then. Holter monitoring done at that time showed baseline sinus rhythm during walking, a sinus brachycardia down into the 50s in the middle of the night while sleeping, and a short run of atrial tachycardia versus atrial flutter with variable conduction also in the middle of the night at 2:30, when she awoke feeling her heart flip-flopping. She has had no more episodes of these, however. She has had no syncopal episodes. Her rhythm returned to a normal sinus rhythm with occasional premature ventricular contractions at the same time, 2:30 in the morning. Prior to those episodes, other rhythm strips showed sinus rhythm with multiform premature ventricular contractions when she complained of feeling weak with chest pain. Despite a number of stressful situations in her life in recent months, she has been feeling rather well. CURRENT MEDICATIONS: Prinivil 5 mg q.d. Premarin 0.3 mg q.d. Coumadin as per the Anticoagulation Clinic. Claritin. Flonase. Maxair. OBJECTIVE: Blood pressure 124/70, pulse 70 and regular, weight 133 pounds. Her neck veins were not distended. Her carotids were 2+ without bruits. Lungs were clear to auscultation. Cardiac exam revealed a normal S1 and S2. There were crisp prosthetic valve sounds. There was a soft grade I to II/ systolic ejection-type murmur heard along the left sternal border without radiation to the carotids or the axilla. No diastolic murmur was appreciated. Abdomen showed no hepatosplenomegaly. Extremities had no peripheral edema. ASSESSMENT AND PLAN: Ms. Schaeffer appears to be doing well after her valve replacements. Her arrhythmias are not of sufficient severity to justify further antiarrhythmic therapy at this point. We will schedule her for a return clinic appointment in 3 months' time. Gorge Rao M.D. Professor, Medicine Division of Cardiology RW /cat A cc: CHIRAG ARZOLA MD [address] [facility] [address] Maxwell Garcia M.D. Professor, Otolaryngology Head and Neck Surgery Ihsan Carias M.D. Professor, Surgery Chief, Division of Cardiopulmonary Surgery documented in this encounter Plan of Treatment Not on filedocumented as of this encounter Visit Diagnoses Not on filedocumented in this encounter"
--- OUTSIDE RECORDS SUMMARY | ~2019-09-03 | XMS | Encounter Summary ---
Demographics + + + | Address | [address] | | | [place] [address] | + + + | Home Phone | | + + + | Preferred Language | Unknown | + + + | Marital Status | | + + + | Tenriism Affiliation | VANDA | + + + [...] Josue Schaeffer | ECON | [address] | | | | | [place] [address] | | + + + + + | Dariana Dowling | ECON | Unknown | | + + + + + Care Team Providers + +------+ + | Care Director Of Primary Name | Role | Phone | + +------+ + PCP | Unavailable | + +------+ + Encounter Details +--------+ + + + + | Date | Type | Department | Care Team | Description | +--------+ + + + + | 06/09/ | Office | General Internal | Note, Outpatient | Progress Note | | 1995 | Visit-Trans | Medicine [address] | Clinic | | | | yovani | [address] | | | | | | Mailcode: [id number] | | | | | | Outpatient Clinic | | | | | | [facility], [address] | | | | | | [place], [place] | | | | | | [address] | | | | | | [phone] | | | +--------+ + + + [...] as of this encounter Progress Notes Interface, Warehouse Laborer In - 05/07/2006 3:10 AM PDT CLINIC DATE: 06/10/95 OTOLARYNGOLOGY CLINIC: SUBJECTIVE: The patient returns for a postoperative follow-up. She is now two months post-sinus surgery and is doing quite well. She is able to both smell and taste and is having decreasing discharge. PHYSICAL EXAMINATION: Nose - The patient had minimal congestion. She was sprayed with ephedrine and Xylocaine solution. She shrank down nicely and on examination was found to have just a very minimal amount of crusting debris, pretty much in the posterior portion of the ethmoid on both sides, but this was quite mild. The patient was then examined with a 30 degree telescope. She is healing quite nicely. On the right side the sphenoid sinus has scarred off; however, there are no polyps and no discharge present in this area. The ethmoids have healed quite nicely. The natural ostium window is open and the mucosa looks normal in the maxillary sinus. On the left side the sphenoid is open. The ethmoid blocks are healing well with just a minimal bit of granulation tissue left. The natural ostium was widely open and I could see into the sinus well with no abnormalities found. IMPRESSION: Good postoperative course. RECOMMENDATIONS: The patient is to return and see me in two months. She is to continue to use irrigations and Flonase. Maxwell Garcia M.D. Professor, Otolaryngology Head and Neck Surgery MALIA/prerna documented in this encounter Plan of Treatment Not on filedocumented as of this encounter Visit Diagnoses Not on filedocumented in this encounter"
--- OUTSIDE RECORDS SUMMARY | ~2019-09-03 | XMS | Encounter Summary ---
Demographics + + + | Address | [address] | | | [place] [address] | + + + | Home Phone [...] + + + | Author | [facility] | + + + | Organization | [facility] | + + + | Address | Unknown | + + + | Phone | Unavailable | + + + Support + + + + + | Name | Relationship | Address | Phone | + + + + + | Josue Schaeffer | ECON | [address] | | | | | [place] [address] | | + + + + + | Dariana Dowling | ECON | Unknown | | + + + + + Care Team Providers + +------+ + | Care Waterproofer Name | Role | Phone | + +------+ + PCP | Unavailable | + +------+ + Encounter Details +--------+ + + + + | Date | Type | Department | Care Team | Description | +--------+ + + + + | 02/03/ | Office | General Internal | Note, Outpatient | Progress Note | | 1995 | Visit-Trans | Medicine [address] | Clinic | | | | yovani | [address] | | | | | | Mailcode: [id number] | | | | | | Outpatient Clinic | | | | | | [facility], [address] | | | | | | [place], [place] | | | | | | [address] | | | | | | [phone] | | | +--------+ + + + [...] as of this encounter Progress Notes Interface, Surface Supervisor In - 04/20/2006 1:08 AM PDT CLINIC DATE: 02/04/96 OTOLARYNGOLOGY CLINIC SUBJECTIVE: Mrs. Schaeffer returns today for follow-up of her chronic sinus disease. She has not been seen for three months. I did have to treat her with some Clindamycin in November. She says she is occasionally having some purulent drainage and also has been having problems with nosebleeds. She has had to decrease her Flonase because of this. However, it seems to be at least partially related to her Coumadin therapy. She otherwise has been feeling really fairly well and is able to breathe through her nose reasonably well. OBJECTIVE: NOSE: The patient had some congestion. She had a little blood on the septum on both sides. She was sprayed with ephedrine and Xylocaine solution. Each side of the septum had a little bit of superficial vessels that were cauterized lightly with silver nitrate. There was no mucopus present. She was examined with a flexible nasopharyngoscope. On both sides I could get into the sphenoids, which were clear with normal-appearing mucosa. The ethmoid block on the right side was well-healed. There were no polyps. I could see up into the nasal frontal duct area and there was no purulence. I could get into the natural ostium, and the mucosa of the maxillary sinus looked normal. On the left side, the patient did have some mild polypoid changes in the area of the nasal frontal duct, Gary nasi cells but really no purulence associated with this. They were quite small and sessile at this point. The rest of the ethmoid block and the natural ostium were normal. Mucosa of the maxillary sinus looked normal. MOUTH AND OROPHARYNX: No lesions seen. IMPRESSION: Small low grade recurrence of polyps in the anterior ethmoid area. RECOMMENDATIONS: The patient really seems to be doing fairly well. I am not sure what to explain the fact she occasionally has some yellowish mucoid material coming, unless it is coming from the anterior ethmoids, possibly frontal sinus on the left side. Recommended that she continue her irrigations. I have given her Nasacort AQ to try instead of Flonase and I recommended that she put ointment in her nose before she sprays it. She is to return to see Dr. Tejada in three months. Maxwell Garcia M.D. Professor, Otolaryngology Head and Neck Surgery MALIA/dirk documented in this encounter Plan of Treatment Not on filedocumented as of this encounter Visit Diagnoses Not on filedocumented in this encounter"
--- OUTSIDE RECORDS SUMMARY | ~2019-09-03 | XMS | Encounter Summary ---
Demographics + + + | Address | [address] | | | [place] [address] | + + + | Home Phone | | + + + | Preferred Language | Unknown | + + + | Marital Status | | + + + | Taoist Affiliation | VANDA | + + + | Race | White | + + + | Ethnic Group | Not or | + + + Author + + + | Author | [facility] | + + + | Organization | [facility] | + + + | Address | Unknown | + + + | Phone | Unavailable | + + + Support + + + + + | Name | Relationship | Address | Phone | + + + + + | Josue Schaeffer | ECON | [address] | | | | | [place] [address] | | + + + + + | Dariana Dowling | ECON | Unknown | | + + + + + Care Team Providers + +------+ + | Care Pairer Name | Role | Phone | + +------+ + | Enoc Lee NP | PCP | | + +------+ + Reason for Visit + + + | Reason | Comments | + + + | Abnormal Lab Result | | + + + Encounter Details +--------+ + + + + | Date | Type | Department | Care Team | Description | +--------+ + + + + | 10/24/ | Telephone | Cardiology [facility] at | Camryn Lewis | Abnormal Lab Result | | 2012 | | [facility] [address] | [address] | | | | | [facility] | [address], | | | | | Health and Healing, | [place] [address] | | | | | [facility] [address] | [phone] | | | | | [place], [place] | | | | | | [address] | | | | | | [phone] | | | +--------+ + + + [...]
--- OUTSIDE RECORDS SUMMARY | ~2019-09-03 | XMS | Encounter Summary ---
Demographics + + + | Address | [address] | | | [place] [address] | + + + | Home Phone | | + + + | Preferred Language | Unknown | + + + | Marital Status | | + + + | Restorationist Affiliation | VANDA | + + + | Race | White | + + + | Ethnic Group | Not or | + + + Author + + + | Author | [facility] | + + + | Organization | [facility] | + + + | Address | Unknown | + + + | Phone | Unavailable | + + + Support + + + + + | Name | Relationship | Address | Phone | + + + + + | Josue Schaeffer | ECON | [address] | | | | | [place] [address] | | + + + + + | Dariana Dowling | ECON | Unknown | | + + + + + Care Team Providers + +------+ + | Care Extractor Machine Operator Name | Role | Phone | + +------+ + | Josiah Walls MD | PCP | | + +------+ + Encounter Details +--------+ + + + + | Date | Type | Department | Care Team | Description | +--------+ + + + + | 07/31/ | Hospital | Cardiac | Sjh, Car Ecg Tech | | | 2009 | Encounter | Non-Invasive Testing | [address] | | | | | at [facility] | [facility] | | | | | [address] | [place] [address] | | | | | [address] | | | | | | [place], 2nd floor | | | | | | [place], [place] | | | | | | [address] | | | | | | [phone] | | | +--------+ + + + [...] +---------+--------+ + documented as of this encounter Plan [...] in this encounter Results 12 LEAD ECG (07/31/2009 11:59 AM PDT) [...] view image for the detailed interpretation from [employer] results. | CARDIOLOGY | + + + + + + + + | Performing | Address | City/State/Zipcode | Phone Number | | Organization | | | | + + + + + | [facility] | [address] | [place], [place] | | | CARDIOLOGY | [address] | [address] | | + + + + + documented in this encounter Visit Diagnoses Not on filedocumented in this encounter
--- OUTSIDE RECORDS SUMMARY | ~2019-09-03 | XMS | Encounter Summary ---
Demographics + + + | Address | [address] | | | [place] [address] | + + + | Home Phone | | + + + | Preferred Language | Unknown | + + + | Marital Status | | + + + | Caodaism Affiliation | VANDA | + + + | Race | White | + + + | Ethnic Group | Not or | + + + Author + + + | Author | [facility] | + + + | Organization | [facility] | + + + | Address | Unknown | + + + | Phone | Unavailable | + + + Support + + + + + | Name | Relationship | Address | Phone | + + + + + | Josue Schaeffer | ECON | [address] | | | | | [place] [address] | | + + + + + | Dariana Dowling | ECON | Unknown | | + + + + + Care Team Providers + +------+ + | Care Service Station Equipment Mechanic Name | Role | Phone | + +------+ + | Josiah Walls MD | PCP | | + +------+ + Reason for Visit Diagnostic Testing (Routine) +--------+--------+ + + + [...] | | | disease, | [address] | | | | | rheumatic | [place], [place] | [place] | | | | | Procedures | [phone] | [facility], 2nd | | | | | TRANSTHORACI | | floor | | | | | C | | [place], [place] | | | | | ECHOCARDIOGR | | [address] | | | | | AM, ADULT | | Phone: | | | | | | | [phone] | +--------+--------+ + + + + Encounter Details +--------+ + + + + | Date | Type | Department | Care Team | Description | +--------+ + + + + | 07/31/ | Hospital | Cardiac | | | | 2009 | Encounter | Non-Invasive Testing | | | | | | at [address] | | | | | | [address] | | | | | | [address] | | | | | | [place] [facility], 2nd | | | | | | floor [place], [place] | | | | | | [address] | | | | | | [phone] | | | +--------+ + + + [...] +--------+ + + + | TRANSTHORACIC | | 07/31/2009 | | Results for this | | ECHOCARDIOGRAM, | | 12:00 AM | | procedure are in the | | ADULT | | PDT | | results section. 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
--- OUTSIDE RECORDS SUMMARY | ~2019-09-03 | XMS | Encounter Summary ---
Demographics + + + | Address | [address] | | | [place] [address] | + + + | Home Phone | | + + + | Preferred Language | Unknown | + + + | Marital Status | | + + + | Sikh Affiliation | VANDA | + + + | Race | White | + + + | Ethnic Group | Not or | + + + Author + + + | Author | [facility] | + + + | Organization | [facility] | + + + | Address | Unknown | + + + | Phone | Unavailable | + + + Support + + + + + | Name | Relationship | Address | Phone | + + + + + | Josue Miles | ECON | [address] | | | | | [place] [address] | | + + + + + | Dariana Dowling | ECON | Unknown | | + + + + + Care Team Providers + +------+ + | Care Branch Controller Name | Role | Phone | + +------+ + PCP | Unavailable | + +------+ + Encounter Details +--------+ + + + + | Date | Type | Department | Care Team | Description | +--------+ + + + + | 10/18/ | Procedure - | UNKNOWN DEPARTMENT | Other, Faculty | ECHO (ARELY or TTE) | | 2001 | | [address] [facility] | [phone] | | | | Transcribed | [address] | | | | | | [place], [place] | | | | | | [address] | | | +--------+ + + + [...] documented as of this encounter Progress Notes Other, Faculty - 10/18/2001 12:00 AM PDTAssociated Order(s): TRANSTHORACIC ECHOCARDIOGRAM, ADULT [facility] DATE: 10/18/01 [place] MED REC NO: [id number] NAME: MARIA ALEJANDRA MILES ECHOCARDIOGRAPHY REPORT BIRTHDATE: [birth year] INDICATION FOR STUDY: P/O PROSTHETIC AORTIC AND MITRAL VALVES UNIT: OP STUDY NO: [id number] TAPE NO. [id number] REQUEST BY: ZAYRA SHRESTHA BP: 158/68 FRAME NO. [id number] TECH: HT: 165.10 CM WT: 61.69 BSA 1.68 SQ. M M-MODE:MM 2-D MEASUREMENT LVID (D)42.0 (S)28.0 IVS (D)12.0 LVPW (D)18.0 DOPPLER:M/S PW CW MMHG PW CW MMHG RVIT 0.80 LVIT 1.60 RVOT 0.70 LVOT 1.00 ASAO AP 2.30 COLOR FLOW 2D & DOPPLER INTERPRETATION STUDY QUALITY: GOOD 1. CHAMBERS: NORMAL LEFT AND RIGHT VENTRICULAR SIZE AND SYSTOLIC FUNCTION. NORMAL LEFT AND RIGHT ATRIAL SIZES. 2. VALVES: AORTIC AND MITRAL PROSTHESIS (ST MOJGAN) IS PRESENT; POPPET/DISC MOTIN IS PRESENT. TRICUSPID VALVE IS NORMAL. 3. DOPPLER/COLOR FLOW: FORWARD FLOW VELOCITIES ARE NORMAL EXCEPT FOR INCREASE IN VELOCITIES ACROSS THE MECHANICAL AORTIC AND MITRAL VALVES. TRACE AORTIC INSUFFICIENCY. NORMAL INFERIOR VENA CAVA. 4. PERICARDIUM: NO PERICARDIAL EFFUSION NOTED. 5. IMPRESSIONS: NORMAL LEFT VENTRICULAR SIZE AND SYSTOLIC FUNCTION. AORTIC AND MITRAL MECHANICAL PROSTHESIS WITH GOOD HEMODYNAMIC FUNCTION; DISC MOTION IS PRESENT. DB JORDI SHRESTHA M.D. documented in this encou nter Plan of Treatment Not on filedocumented as of this encounter Procedures + +--------+ + + + | Procedure Name | Priori | Date/Time | Associated Diagnosis | Comments | | | ty | | | | + +--------+ + + + | TRANSTHORACIC | | 10/18/2001 | | Results for this | | ECHOCARDIOGRAM, | | 12:00 AM | | procedure are in the | | ADULT | | PDT | | results section. | + +--------+ + + + documented in this encounter Results TRANSTHORACIC ECHOCARDIOGRAM, ADULT (10/18/2001 12:00 AM PDT) + + | Procedure Note | + + | Other, Faculty - 10/18/2001 12:00 AM PDT [facility] DATE: | | 10/18/01 [place] MED REC NO: [id number] NAME: MARIA ALEJANDRA MILES | | ECHOCARDIOGRAPHY REPORT BIRTHDATE: [birth year] INDICATION FOR STUDY: P/O PROSTHETIC AORTIC | | AND MITRAL VALVES UNIT: OP STUDY NO: [id number] [place]APE [place]. [id number] REQUEST BY: ZAYRA SHRESTHA | | BP: RA 158/68 FRAME NO. [id number] TECH: HT: 165.10 CM WT: 61.69 BSA 1.68 SQ. M | | M-MODE:MM | | 2-D MEASUREMENT | | LVID (D)42.0 | | (S)28.0 IVS (D)12.0 LVPW (D)18.0 | | DOPPLER:M/S | | PW CW MMHG PW CW MMHG | | RVIT 0.80 | | LVIT 1.60 RVOT 0.70 LVOT 1.00 ASAO AP 2.30 | | COLOR FLOW | | 2D & DOPPLER INTERPRETATION | | STUDY | | QUALITY: GOOD 1. CHAMBERS: NORMAL LEFT AND RIGHT VENTRICULAR SIZE AND SYSTOLIC FUNCTION. | | NORMAL LEFT AND RIGHT ATRIAL SIZES. 2. VALVES: AORTIC AND MITRAL PROSTHESIS (ST MOJGAN) | | IS PRESENT; POPPET/DISC MOTIN IS PRESENT. TRICUSPID VALVE IS NORMAL. 3. DOPPLER/COLOR | | FLOW: FORWARD FLOW VELOCITIES ARE NORMAL EXCEPT FOR INCREASE IN VELOCITIES ACROSS THE | | MECHANICAL AORTIC AND MITRAL VALVES. TRACE AORTIC INSUFFICIENCY. NORMAL INFERIOR VENA | | CAVA. 4. PERICARDIUM: NO PERICARDIAL EFFUSION NOTED. 5. IMPRESSIONS: NORMAL LEFT | | VENTRICULAR SIZE AND SYSTOLIC FUNCTION. AORTIC AND MITRAL MECHANICAL PROSTHESIS WITH | | GOOD HEMODYNAMIC FUNCTION; DISC MOTION IS PRESENT. DB JORDI | | Jd SHRESTHA M.D. | | ASAO AP 2.30 | | | | COLOR FLOW 2D & DOPPLER INTERPRETATION | | | | STUDY QUALITY: GOOD | | 1. CHAMBERS: NORMAL LEFT AND RIGHT VENTRICULAR SIZE AND SYSTOLIC | | FUNCTION. NORMAL LEFT AND RIGHT ATRIAL SIZES. | | | | 2. VALVES: AORTIC AND MITRAL PROSTHESIS (ST MOJGAN) IS PRESENT; | | POPPET/DISC MOTIN IS PRESENT. TRICUSPID VALVE IS NORMAL. | | | | 3. DOPPLER/COLOR FLOW: FORWARD FLOW VELOCITIES ARE NORMAL EXCEPT | | FOR INCREASE IN VELOCITIES ACROSS THE MECHANICAL AORTIC AND | | MITRAL VALVES. TRACE AORTIC INSUFFICIENCY. NORMAL INFERIOR | | VENA CAVA. | | | | 4. PERICARDIUM: NO PERICARDIAL EFFUSION NOTED. | | | | 5. IMPRESSIONS: NORMAL LEFT VENTRICULAR SIZE AND SYSTOLIC | | FUNCTION. AORTIC AND MITRAL MECHANICAL PROSTHESIS WITH GOOD | | HEMODYNAMIC FUNCTION; DISC MOTION IS PRESENT. | | | | | | DB | | | | JORDI A. PANTELY, M.D. | | | | | | | + + documented in this encounter Visit Diagnoses Not on filedocumented in this encounter"
--- OUTSIDE RECORDS SUMMARY | ~2019-09-03 | XMS | Encounter Summary ---
Demographics + + + | Address | [address] | | | [place] [address] | + + + | Home Phone [...] Josue Schaeffer | ECON | [address] | | | | | [place] [address] | | + + + + + | Dariana Dowling | ECON | Unknown | | + + + + + Care Team Providers + +------+ + | Care Vending Technician Name | Role | Phone | + +------+ + | Josiah Walls MD | PCP | | + +------+ + Encounter Details +--------+ + + + + | Date | Type | Department | Care Team | Description | +--------+ + + + + | 01/08/ | Documentati | Infectious | Philippe Melvin MD | | | 2009 | on | [facility] at [facility] | | | | | | [address] | | | | | | [facility] | | | | | | [address], [address] [place] [address] | | | | | | [place], [place] | | | | | | [address] | | | | | | [phone] | | | +--------+ + + + [...]
--- OUTSIDE RECORDS SUMMARY | ~2019-09-03 | XMS | Encounter Summary ---
Demographics + + + | Address | [address] | | | [place] [address] | + + + | Home Phone [...] | | | | | [place] [address] | | + + + + + | Dariana Dowling | ECON | Unknown | | + + + + + Care Team Providers + +------+ + | Care Half Sole Fitter Name | Role | Phone | + +------+ + | Enoc Lee NP | PCP | | + +------+ + Encounter Details +--------+ + + + + | Date | Type | Department | Care Team | Description | +--------+ + + + + | 09/09/ | Abstract | | | | | 2004 | | | | | +--------+ + [...]
--- OUTSIDE RECORDS SUMMARY | ~2019-09-03 | XMS | Encounter Summary ---
Demographics + + + | Address | [address] | | | [place] [address] | + + + | Home Phone | | + + + | Preferred Language | Unknown | + + + | Marital Status | | + + + | Adventist Affiliation | VANDA | + + + | Race | White | + + + | Ethnic Group | Not or | + + + Author + + + | Author | [facility] | + + + | Organization | [facility] | + + + | Address | Unknown | + + + | Phone | Unavailable | + + + Support + + + + + | Name | Relationship | Address | Phone | + + + + + | Josue Schaeffer | ECON | [address] | | | | | [place] [address] | | + + + + + | Dariana Dowling | ECON | Unknown | | + + + + + Care Team Providers + +------+ + | Care Car Electronics Installer Name | Role | Phone | + +------+ + PCP | Unavailable | + +------+ + Encounter Details +--------+ + + + + | Date | Type | Department | Care Team | Description | +--------+ + + + + | 12/01/ | Office | [facility] | Clinic, | Progress Note | | 2004 | Visit-Trans | | Otolaryngology | | | | cribed | | [...] as of this encounter Progress Notes Interface, Cushion Spring Assembler In - 04/01/2005 2:03 AM PST [id number] [facility] Date: 12/01/2004 Clinic: Otolaryngology Mrs. Schaeffer returns today for her history of chronic rhinosinusitis. She states intermittently she has been having a lot of nasal drainage intermittently discolored. Yesterday, she had a quite a bit of drainage from the right side but now seems to feel better. Intermittently, she also has some foul smelling that is within her nose and is able to irrigate the crusting. She continues to use Flonase nasal spray. She also complains that there is a small area on the right side of her nasal septum which continues to be irritated, crust, and bleed despite the use of topical bacitracin ointment and saline spray. Procedure Note: Diagnostic nasal endoscopy. Anesthesia: Lidocaine 4% topical. Description of Procedure: A 4-mm, 30-degree nasal endoscope was passed into the right nasal passage. The maxillary sinus appeared patent. The ethmoid cavity appeared clear. There was no evidence of purulent discharge or crusting. The scope was passed into the left nasal passage. The maxillary antrostomy was patent. The ethmoid cavity was clear. There was a large crust within the sphenoid sinus which was removed. The underlying mucosa was mildly edematous. There was a small area on the right anterior nasal septum which looked like it has recently bleed, and it was mildly irritated. Assessment and Plan: History of chronic rhinosinusitis. Overall, she looks good on exam today. I do think she has some component of recirculation and would like her to continue frequent use of nasal saline irrigation. I would like her to continue to use bacitracin ointment on the nasal septum twice daily as well as nasal saline spray, and also discontinue use of Flonase nasal spray on the left side, if she has continued bleeding. Again, she will continue to try to keep the spray pointed away from the nasal septum. She will follow up with me in 6 months or sooner should she have any problem. Mayra Vega M.D. LES / [id number] / [id number] / [id number] / [id number] Electronically signed by Mayra Vega 03-31-2005 08:58:08 PM documented i n this encounter Plan of Treatment Not on filedocumented as of this encounter Visit Diagnoses Not on filedocumented in this encounter"
--- OUTSIDE RECORDS SUMMARY | ~2019-09-03 | XMS | Encounter Summary ---
Demographics + + + | Address | [address] | | | [place] [address] | + + + | Home Phone | | + + + | Preferred Language | Unknown | + + + | Marital Status | Single | + + + | Denominational Affiliation | 1064 | + + + | Race | Unknown | + + + | Ethnic Group | Unknown | + + + Author + + + | Author | [facility] | | | and [place] | + + + | Organization | [facility] | | | and [place] [...] Team Providers + +------+ + | Care Youth Nutritional Monitor Name | Role | Phone | + +------+ + PCP | Unavailable | + +------+ + Encounter Details +--------+ + + + + | Date | Type | Department | Care Team | Description | +--------+ + + + + | 07/29/ | Hospital | [facility] | | | | 2004 | Encounter | MED CTR XRAY [address] | | | | | | [place] | | | | | | [place] [address] | | | | | | [phone] | | | +--------+ + + + [...]
--- OUTSIDE RECORDS SUMMARY | ~2019-09-03 | XMS | Encounter Summary ---
Demographics + + + | Address | [address] | | | [place] [address] | + + + | Home Phone | | + + + | Preferred Language | Unknown | + + + | Marital Status | | + + + | Yarsanism Affiliation | VANDA | + + + [...] + + + + + | Josue Scaheffer | ECON | [address] | | | | | [place] [address] | | + + + + + | Dariana Dowling | ECON | Unknown | | + + + + + Care Team Providers + +------+ + | Care President And Chief Executive Officer Name | Role | Phone | + +------+ + PCP | Unavailable | + +------+ + Encounter Details +--------+ + + + + | Date | Type | Department | Care Team | Description | +--------+ + + + + | 10/18/ | Office | | Note, Outpatient | Progress Note | | 2001 | Visit-Trans | | Clinic | | [...] as of this encounter Progress Notes Interface, Surgical Garment Assembly Supervisor In - 09/24/2005 3:08 AM PDTCLINIC DATE: 10/18/2001 OTOLARYNGOLOGY CLINIC HISTORY: The patient follows up for routine followup of her paranasal sinus disease. Overall, she states that she has been doing well and has only some occasional postnasal drainage. PROCEDURE NOTE: Diagnostic nasal endoscopy. ANESTHESIA: Lidocaine 4%. DESCRIPTION OF PROCEDURE: A 4-mm 30-degree nasal endoscope was passed into the right nasal passage. The maxillary antrostomy is widely patent with no retained secretions. The ethmoid cavity is clear. The sphenoidotomies are widely patent. The nasal mucosa appears normal. The scope was passed into the left nasal passage. The maxillary antrostomy is widely patent. The ethmoid cavity is clear. The sphenoidotomy is widely patent. There is no buildup of thick secretions or crusting. The scope was removed. The patient tolerated the procedure well. 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 Overall, the patient has been doing very well. She does continue to do some nasal saline irrigation which I recommended her to continue. I refilled her Flonase for 1 year, and she will follow up with me on an annual basis or sooner should she have any problems. Mayra Vega M.D. LES / MATTHIAS [id number] / [id number] / [id number] / Mahmood, Surgical Garment Assembly Supervisor In - 09/24/2005 3:08 AM PDTCLINIC DATE: 10/19/2001 REASON FOR VISIT: Mrs. Schaeffer is a 61-year-old woman who comes in for followup of her rheumatic heart disease. MEDICAL PROBLEM LIST 1. Rheumatic heart disease. 1.1. Mitral valve commissurotomy. 1.2. 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 1.3. Chronic Coumadin therapy. 1.4. Functional class II status. 2. Hypertension, which needs a little better control. 3. Vertigo, secondary to labyrinthine disease. 4. Chronic migraine headaches. 5. Chronic swelling in the left arm from surgery. 6. Multiple allergies. 7. Hyperthyroidism, now euthyroid. MEDICATIONS 1. Thyroid 0.075 mg 2 days a week and 0.05 mg 5 days a week. 2. Coumadin based on the INR. 3. Lasix 20 mEq q.d. as needed. 4. Potassium chloride 10 mEq q.d. as needed with the Lasix. 5. Albuterol inhaler. 6. Meclizine 25 mg p.r.n. vertigo. 7. Salsalate 500 mg p.r.n. 8. Promethazine 25 mg p.r.n. 9. Librium 5 mg p.r.n. 10. I restarted her on lisinopril 5 mg p.o. q.d. SUBJECTIVE: Mrs. Schaeffer comes in for annual followup. Her thyroid status has been well controlled. She is feeling a little bit tired, but otherwise is doing okay. Her tiredness is kind of vague. She just does not feel like she has as much energy as she has had in the past. She is sleeping 8 to 9 hours at night. She is limited in her activity by her allergies because going outside and working or walking causes her breathing to worsen, and she does not have enough money to join a health club. 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 She can go shopping and walks around there without any problems. She feels that she has had her blood pressure checked, and it is tending to run a little bit higher than usual with the systolic being frequently 160 or 170. She gets some edema occasionally particularly at the end of the day. No chest pain. No palpitations. REVIEW OF SYSTEMS: She is followed by an group president, and her thyroid status is euthyroid. She brings in some laboratories, and they are all really pretty much unremarkable. PHYSICAL EXAMINATION VITAL SIGNS: Her blood pressure is 160/76 in the right arm. I rechecked it later in the exam, and it was 170/80. Pulse is 60 and regular. Weight is 136 pounds which is up about 3 pounds per her. LUNGS: Clear to auscultation. CARDIAC: Jugular venous pressure is less than 8. On cardiac exam, we could hear the valve sounds. There is a 2/6 systolic ejection murmur. No diastolic murmurs heard. ABDOMEN: Nontender. Not obese. EXTREMITIES: Just a trace of edema with good pulses. DIAGNOSTIC DATA: She had an echo today which I reviewed. Her LV systolic function is normal, and the hemodynamic function of the aortic and mitral prostheses is very good. There is really no significant abnormality on the echo. ASSESSMENT: Mrs. Schaeffer is doing fine. I cannot find any reason for her tiredness related to her cardiac status. Her hematocrit is fine, and she reports that she is euthyroid. RECOMMENDATIONS 1. I think we need to add an antihypertensive back to her. I chose lisinopril at 5 mg a day to go up as needed. She has been on this in the past. I also gave her prescriptions for Lasix 20 a day and potassium 10 mEq to take as needed for edema, and she will stay on her other medications. I should mention her Coumadin has been stable with her last INR being 2.8. 2. She will return to clinic in 1 year's time. Emanuel Morgan M.D. GP / HS [id number] / [id number] / [id number] / [id number] C:10/26/2001 BG documented in this encounter Plan of Treatment Not on filedocumented as of this encounter Visit Diagnoses Not on filedocumented in this encounter"
--- OUTSIDE RECORDS SUMMARY | ~2019-09-03 | XMS | Encounter Summary ---
Demographics + + + | Address | [address] | | | [place] [address] | + + + | Home Phone [...] Josue Schaeffer | ECON | [address] | | | | | [place] [address] | | + + + + + | Dariana Dowling | ECON | Unknown | | + + + + + Care Team Providers + +------+ + | Care Bander Operator Name | Role | Phone | + +------+ + | Josiah Walls MD | PCP | | + +------+ + Reason for Visit + + + | Reason | Comments | + + + | Lab findings, | | | teaching, guidance, | | | and counseling | | + + + Encounter Details +--------+ + + + + | Date | Type | Department | Care Team | Description | +--------+ + + + + | 06/04/ | Telephone | Cardiology [facility] at | Emanuel Morgan, | Lab findings, | | 2010 | | [facility] [address] | | teaching, guidance, | | | | [facility] | | and counseling | | | | Health and Healing, | | | | | | | | | | | | Floor [place], [place] | | | | | | [address] | | | | | | [phone] | | | +--------+ + + + [...]
--- OUTSIDE RECORDS SUMMARY | ~2019-09-03 | XMS | Encounter Summary ---
Demographics + + + | Address | [address] | | | [place] [address] | + + + | Home Phone | | + + + | Preferred Language | Unknown | + + + | Marital Status | | + + + | Mandaeism Affiliation | VANDA | + + + [...] Josue Schaeffer | ECON | [address] | | | | | [place] [address] | | + + + + + | Dariana Dowling | ECON | Unknown | | + + + + + Care Team Providers + +------+ + | Care Resident Caregiver Name | Role | Phone | + +------+ + | Josiah Walls MD | PCP | | + +------+ + Reason for Visit +--------+ + | Reason | Comments | +--------+ + | Other | | +--------+ + Encounter Details +--------+ + + + + | Date | Type | Department | Care Team | Description | +--------+ + + + + | 10/02/ | Telephone | Cardiology [facility] at | Emanuel Morgan, | Other | | 2009 | | [facility] [address] | | | | | | [facility] | | | | | | Health and Healing, | | | | | | Building | | | | | | Floor [place], [place] | | | | | | [address] | | | | | | [phone] | | | +--------+ + + + [...]
--- OUTSIDE RECORDS SUMMARY | ~2019-09-03 | XMS | Encounter Summary ---
Demographics + + + | Address | [address] | | | [place] [address] | + + + | Home Phone | | + + + | Preferred Language | Unknown | + + + | Marital Status | | + + + | Holiness Affiliation | VANDA | + + + | Race | White | + + + | Ethnic Group | Not or | + + + Author + + + | Author | [facility] | + + + | Organization | [facility] | + + + | Address | Unknown | + + + | Phone | Unavailable | + + + Support + + + + + | Name | Relationship | Address | Phone | + + + + + | Josue Schaeffer | ECON | [address] | | | | | [place] [address] | | + + + + + | Dariana Dowling | ECON | Unknown | | + + + + + Care Team Providers + +------+ + | Care Energy Manager Name | Role | Phone | + +------+ + | Josiah Walls MD | PCP | | + +------+ + Encounter Details +--------+ + + + + | Date | Type | Department | Care Team | Description | +--------+ + + + + | 10/02/ | Abstract | Cardiology [facility] at | Emanuel Morgan | | | 2009 | | [facility] [address] | | | | | | [facility] | | | | | | Health and Healing, | | | | | | Building | | | | | | [place], [place] | | | | | | [address] | | | | | | [phone] | | | +--------+ + + + [...] + + | INR | Routin | 09/02/2009 | | Results for this | | | e | | | procedure are in the | | | | | | results section. | + +--------+ + + + | INR | Routin | 08/02/2009 | | Results for this | | | e | | | procedure are in the | | | | | | results section. | + +--------+ + + + | INR | Routin | 07/24/2009 | | Results for this | | | e | | | procedure are in the | | | | | | results section. | + +--------+ + + + | INR | Routin | 06/26/2009 | | Results for this | | | e | | | procedure are in the | | | | | | results section. | + +--------+ + + + | INR | Routin | 06/05/2009 | | Results for this | | | e | | | procedure are in the | | | | | | results section. | + +--------+ + + + | INR | Routin | 05/27/2009 | | Results for this | | | e | | | procedure are in the | | | | | | results section. | + +--------+ + + + | INR | Routin | 05/17/2009 | | Results for this | | | e | | | procedure are in the | | | | | | results section. | + +--------+ + + + | INR | Routin | 04/19/2009 | | Results for this | | | e | | | procedure are in the | | | | | | results section. | + +--------+ + + + | INR | Routin | 04/04/2009 | | Results for this | | | e | | | procedure are in the | | | | | | results section. | + +--------+ + + + documented in this encounter Results INR (09/02/2009) + +---------+ + + + | Component | Value | Ref Range | Performed | Pathologist | | | | | At | Signature | + +---------+ + + + | INR | 3.3 (A) | 0.98 - 1.08 INR | [...] | | + +---------+ + + INR (08/02/2009) + +---------+ + + + | Component | Value | Ref Range | Performed | Pathologist | | | | | At | Signature | + +---------+ + + + | INR | 3.2 (A) | 0.98 - 1.08 INR | [...] | | + +---------+ + + INR (07/24/2009) + +---------+ + + + | Component [...] | | + +---------+ + + INR (06/26/2009) + +---------+ + + + | Component | Value | Ref Range | Performed | Pathologist | | | | | At | Signature | + +---------+ + + + | INR | 3.5 (A) | 0.98 - 1.08 INR | [...] | | + +---------+ + + INR (06/05/2009) + +---------+ + + + | Component | Value | Ref Range | Performed | Pathologist | | | | | At | Signature | + +---------+ + + + | INR | 3.1 (A) | 0.98 - 1.08 INR | [...] | | + +---------+ + + INR (05/27/2009) + +---------+ + + + | Component [...] | | + +---------+ + + INR (05/17/2009) + +---------+ + + + | Component | Value | Ref Range | Performed | Pathologist | | | | | At | Signature | + +---------+ + + + | INR | 4.2 (A) | 0.98 - 1.08 INR | [...] | | + +---------+ + + INR (04/19/2009) + +---------+ + + + | Component | Value | Ref Range | Performed | Pathologist | | | | | At | Signature | + +---------+ + + + | INR | 3.4 (A) | 0.98 - 1.08 INR | [...] | | + +---------+ + + INR (04/04/2009) + +---------+ + + + | Component | Value | Ref Range | Performed | Pathologist | | | | | At | Signature | + +---------+ + + + | INR | 3.6 (A) | 0.98 - 1.08 INR | [...]
--- OUTSIDE RECORDS SUMMARY | ~2019-09-03 | XMS | Encounter Summary ---
Demographics + + + | Address | [address] | | | [place] [address] | + + + | Home Phone [...] Josue Schaeffer | ECON | [address] | | | | | [place] [address] | | + + + + + | Dariana Dowling | ECON | Unknown | | + + + + + Care Team Providers + +------+ + | Care Car Park Attendant Name | Role | Phone | + +------+ + PCP | Unavailable | + +------+ + Encounter Details +--------+ + + + + | Date | Type | Department | Care Team | Description | +--------+ + + + + | 12/02/ | Office | [facility] | Clinic, Cardiology | Progress Note | | 2004 | Visit-Trans | | | | | | cribed | | [...] as of this encounter Progress Notes Interface, Color Paste Mixer In - 12/11/2004 5:02 AM [facility] [id number] [facility] Date: 12/02/2004 Clinic: CARDIOLOGY CLINIC Reason for Visit: Mrs. Schaeffer is a 64-year-old woman who comes in for followup of her rheumatic heart disease. Medical Problem List: 1. Rheumatic heart disease. 1.1. Mitral valve commissurotomy. 1.2. 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 1.3. Chronic warfarin therapy. 1.4. Functional class II status but not necessarily related to her heart. 2. Hypertension, controlled. 3. Chronic migraines. 4. Chronic allergies. 5. Hypothyroidism, now euthyroid. 6. Diffuse joint and muscular pains related to arthritis and/or fibromyalgia. Medications: 1. Warfarin based on the INR. 2. Levothyroxine 0.44 mg daily. 3. Lisinopril which she takes as needed for her blood pressure being elevated. 4. Lasix 20 mg daily with potassium 10 mEq daily. Subjective: Mrs. Schaeffer has done about the same from a cardiac point of view. She is not having any PND or orthopnea. Her INRs have been well-regulated. She is now taking her diuretics most days and will retain fluid if she does not take it. This has gradually started to accelerate a little bit. Her activity status is primarily a function of class II. I think most of it is related to joint discomfort and back pain that she has rather than any cardiac limitations. She was to be seen by a trolley worker, but that never fell through, and she has begun around to it. She is still followed in [facility]. Her thyroid function has been stable. She continues to have intermittent problems with her migraines and allergies. Physical Examination: Vital Signs: Her blood pressure today is 158/76. She is usually in the 120s at home. She has not taken her diuretics for the last 3 days because of traveling. It gets inconvenient to stop frequently. If she takes her diuretics regularly, her blood pressure is under control. Heart rate is 58, oxygen saturation is 98, and weight is 137 pounds. Lungs: Clear to auscultation. Cardiovascular: Jugular venous pressure is less than 8. She has the mechanical valve sounds that are heard throughout the precordium. There is a 2/6 systolic ejection murmur heard at the base of the heart. No diastolic murmurs are heard. Abdomen: Not obese nor tender. Extremities: There is +1 edema. Assessment: Overall, Mrs. Schaeffer seems to be doing about the same. She is a little fluid long. This is kind of chronic problem for her, and she is needing more and more diuretics. I should also mention, she brought in some values of her cholesterol which were total cholesterol of 228, HDL of 51, LDL 159, and triglyceride 91. While she has a nice high HDL, her LDL is still higher than desired. She also has a C-reactive protein of 3.3, sodium 144, potassium 3.9, BUN 12, and creatinine 0.8. Because of this, we discussed starting her on lipid-lowering medication. We discussed the risks and benefits of the statins, particularly with her diffuse muscle aches versus something else, and jointly decided we would start with the statins and see if she tolerated this and, if not, switch to something else. Plans: 1. We will continue on her current medications. 2. We will add atorvastatin 10 mg nightly, and she will monitor her joint and muscle aches. In a month, she will get a lipid panel plus liver functions and a CK. She will notify me the results of those, and we will try to decide if she is having any side effects from the medications. Otherwise, we will see her in 1 year's time with a repeat echocardiogram. Emanuel Morgan M.D. GP / HS [id number] / [id number] / [id number] / [id number] Electronically signed by Emanuel Morgan 12-10-2004 08:35:02 AM documented i n this encounter Plan of Treatment Not on filedocumented as of this encounter Visit Diagnoses Not on filedocumented in this encounter"
--- OUTSIDE RECORDS SUMMARY | ~2019-09-03 | XMS | Encounter Summary ---
Demographics + + + | Address | [address] | | | [place] [address] | + + + | Home Phone | | + + + | Preferred Language | Unknown | + + + | Marital Status | | + + + | Episcopalian Affiliation | VANDA | + + + | Race | White | + + + | Ethnic Group | Not or | + + + Author + + + | Author | [facility] | + + + | Organization | [facility] | + + + | Address | Unknown | + + + | Phone | Unavailable | + + + Support + + + + + | Name | Relationship | Address | Phone | + + + + + | Josue Schaeffer | ECON | [address] | | | | | [place] [address] | | + + + + + | Dariana Dowling | ECON | Unknown | | + + + + + Care Team Providers + +------+ + | Care Bullet Casting Operator Name | Role | Phone | + +------+ + | Josiah Walls MD | PCP | | + +------+ + Encounter Details +--------+ + + + + | Date | Type | Department | Care Team | Description | +--------+ + + + + | 10/18/ | Results | Registration [id number] | | | | 1996 | Only | [address] | | | | | | [address] Mailcode: [address] | | | | | | [place], [place] | | | | | | [address] | | | | | | [phone] | | | +--------+ + + + [...] | COAGULATION TESTS 2 | Routin | 10/19/1995 | | Results for this | | | e | 10:17 AM | | procedure are in the | | | | PDT | | results section. | + +--------+ + + + documented in this encounter Results COAGULATION TESTS 2 (10/19/1995 10:17 AM PDT) + + + + + + | Component | Value | Ref Range | Performed | Pathologist | | | | | At | Signature | + + + + + + | PROTHROMBIN | 16.6 (H) | SECONDS | | | | TIME | | | | | + + + + + + | PROTIME | 1.4 | SECONDS | | | | RATIO | | | | | + + + + + + | PROTHROMBIN | 2.01 | INR | | | | INR [...] + + + + + | [facility] | [address] | [place] [address] | | | PATHOLOGY | [address] | | | + + + + + documented in this encounter Visit Diagnoses Not on filedocumented in this encounter"
--- OUTSIDE RECORDS SUMMARY | ~2019-09-03 | XMS | Encounter Summary ---
Demographics + + + | Address | [address] | | | [place] [address] | + + + | Home Phone | | + + + | Preferred Language | Unknown | + + + | Marital Status | | + + + | Scientology Affiliation | VANDA | + + + | Race | White | + + + | Ethnic Group | Not or | + + + Author + + + | Author | [facility] | + + + | Organization | [facility] | + + + | Address | Unknown | + + + | Phone | Unavailable | + + + Support + + + + + | Name | Relationship | Address | Phone | + + + + + | Josue Schaeffer | ECON | [address] | | | | | [place] [address] | | + + + + + | Dariana Dowling | ECON | Unknown | | + + + + + Care Team Providers + +------+ + | Care Music Copyist Name | Role | Phone | + [...] | Closed | | Cardiology | | No | [place], | | | | | | Referring | MD Benjie | | | | | | Provider Per | [address] | | | | | | Patient NO | Street | | | | | | REFERRING | [address] | | | | | | PROVIDER PER | [place] | | | | | | [place] | [address] Phone: | | | | | | | [phone] | | | | | | | Fax: | | | | | | | [phone] | +--------+--------+ + + + + Encounter Details +--------+---------+ + + + | Date | Type | Department | Care Team | Description | +--------+---------+ + + + | 04/13/ | Office | Cardiology [facility] at | Emanuel Morgan, | Mitral valve | | 2010 | Visit | [facility] [address] | MD | disorder 424.0; | | | | [facility] | | Aortic valve | | | | [facility], | | disorder 424.1 | | | | Building | | | | | | Floor [place], [place] | | | | | | [address] | | | | | | [phone] | | | +--------+---------+ + + + [...] + + + | Blood Pressure | 170/68 | 05/21/2010 10:19 AM | | | | | PDT | | + + + + + | Pulse | 56 | 05/21/2010 10:19 AM | | | | | PDT | | + + + + + | Temperature | 36.4 C (97.6 F) | 05/21/2010 10:19 AM | | | | | PDT | | + + + + + | Respiratory Rate | - | - | | + + + + + | Oxygen Saturation | 98% | 05/21/2010 10:19 AM | | | | | PDT | | + + + + + | Inhaled Oxygen | - | - | | | Concentration | | | | + + + + + | Weight | 61.4 kg (135 lb 4.8 | 05/21/2010 10:19 AM | | | | oz) | PDT | | + + + + + | Height | 163.8 cm (5' 4.5") | 05/21/2010 10:19 AM | | | | | PDT | | + + + + + | Body Mass Index | 22.87 | 05/21/2010 10:19 AM | | | | | PDT | | + + + + + documented in this encounter Patient Instructions Patient Instructions Emanuel Morgan MD - 05/21/2010 11:03 AM PDT1. General Information. Physician Information: Emanuel Morgan M.D. Division of Cardiovascular Medicine [facility] [address] [place] [address] Email: [email or web address] Medicine Web Site: [email or web address] Office: [phone] After hours: [phone] and ask to speak to the physician taking calls for cardiology. Appointments: [phone] Nurse (for questions, requests, or to provide information): Malka Rosado RN: [phone]. If your call is long distance, dial the toll-free number of . This will conn ect you to an [facility] graphotype operator who can connect you to the number or person that you want. 2. I will call with result of the echo. 3. My recommendation for the INR is 3.0-3.5. 4. Continue to follow up with Dr. Walls. 5. If you want to see a assistant casino shift manager in [place], I would recommend setting up an appointmen t or talk with BEVERLY Bauer. He could see you or set you up with one of the assistant casino shift manager in his group that would follow you. 6. Appointment here in 1 year. 11 :03 AM PDT documented in this encounter Progress Notes Emanuel Morgan MD - 05/21/2010 5:38 PM PDTFormatting of this note might be different fro m the original. CARDIOLOGY RETURN VISIT Maria Alejandra Schaeffer is a 69 y.o. 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 Referring Provider/PCP: Josiah Walls MD Chief Complaint Patient presents with Follow-up encounter Cardiac Problem list/risk factors: 1. Rheumatic heart [...] 7. Two "falls" episodes of uncertain etiology. 8. 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 CALCIUM + D OR (1200 mg calcium and 500mg vitamin D) 1 tablet daily COD LIVER OIL OR 1 capsule daily fluticasone (FLONASE) 50 mcg/Actuation Nasal [place], Suspension Instill 2 Sprays into ea ch nostril once daily. Garlic 1,000 mg Oral Capsule 2 capsules daily GUAIFENESIN (MUCINEX ORAL) Take 1 Tab by mouth as needed. Lecithin 1,200 mg Oral Tablet, Chewable once daily levothyroxine 75 mcg Oral Tablet Take 75 mcg by mouth once daily. lisinopril 5 mg Oral Tablet Take by mouth. 1/2-1 tablet as needed MECLIZINE HCL (MECLIZINE ORAL) Take by mouth. (10 mg tablet) 1/2 tablet twice daily as needed salsalate 500 mg Oral Tablet takes 1 tablet per week sodium chloride 0.65 % Nasal Aerosol, [place] Instill 2 Sprays into each nostril as cathleen d. VITAMIN B COMPLEX OR 1200 mg daily VITAMIN C 1,000 mg Oral Tablet 1 tablet daily VITAMIN E OR 1 tablet daily warfarin 5 mg Oral Tablet Take 5 mg by mouth once daily. Take 7.5 mg on Wednesday and Wed, 5 mg all other days as directed by the anticoagulation clinic XANAX 2 mg Oral Tablet 1/4 tablet at night as needed ZOLOFT 50 mg Oral Tablet 1/2 tablet daily Allergies: Aspirin, Clarification needed, Adhesive tape, Codeine and Lipitor Subjective: This is Maria Alejandra Schaeffer's first visit since her discharge from [facility] in Dec after being hospi talized for prosthetic valve endocarditis. She finished her antibiotic course at home in [facility]. She apparently has some renal dysfunction likely due to the antibiotics. She is st ill weak, but is gradually able to do more and increase her endurance. Her BP has been good . She did not take her medications yet this AM so her BP is high now. She states that she normally runs 120 systolic at home. Her INR today was 4.2 She will hold her warfarin. The anticoagulation lab in [place] wants to run her at 3.5-4.0. She is upset about this as I have recommended to her INRs of 3.0-3.5. This is the recommendation of the [facility]. She is not having problems with passing out now, nor has the peripheral edema been a problem. No feve rs. Cardiac Risks: Age and Hypertension Exercise Tolerance: NYHA FC II-III Review of System: See attached flow sheet. Physical Exam: Vitals: BP 170/68 | Pulse 56 | Temp (Src) 36.4 C (97.6 F) (Oral) | Ht 1.638 m (5' 4.5" ) | Wt 61.372 kg (135 lb 4.8 oz) | SpO2 98% | BMI 22.87 kg/(m^2) GENERAL: Well appearing, no acute distress. HEENT: WNL LUNGS: Clear to auscultation. CV: Estimated JVP is <8 cm. Carotid upstrokes are normal; No bruits. PMI is in the 5th IC S at MCL. Mechanical heart sounds. 2/6 FERNANDO at the LSB and base. No rubs or gallops. ABDOMEN: No tenderness, active bowel sounds. No hepatic or splenic enlargement. EXTREMITIES: Pulses are +2 symmetrical. No edema. SKIN: No cyanosis. ECHO: Labs: Lab Results Lab Test Name Results Date/Time WBC 5.9 01/07/10 HB 8.9 01/07/10 HCT 26.2 01/07/10 PLT 327 01/07/10 MCV 89.0 01/07/10 RDW 14.9 01/07/10 NA 139 01/07/10 NA 142. 12/14/1994 K 4.3 01/07/10 K 4.2 12/14/1994 CL 111 01/07/10 BICARB 23 01/07/10 BUN 10 01/07/10 CR 1.03 01/07/10 GLU 84 01/07/10 CA 8.5 01/07/10 CHOL 192. 03/28/1997 TSH 3.49 12/28/09 Assessment: Prosthetic valve endocarditis, successfully treated with preserved valve function. She eladio lly looks quite good. Dr. Walls is doing a nice job of managing her and she needs to co ntinue to follow up with him. Plan: 1. My recommendation for the INR is 3.0-3.5. 2. Continue to follow up with Dr. Walls. 3. If you want to see a assistant casino shift manager in [place], I would recommend setting up an appointmen t or talk with BEVERLY Bauer. He could see you or set you up with one of the assistant casino shift manager in his group that would follow you. 4. If you want to continue to come to [facility], set up appointment here in 1 year. documented in this en counter Plan of Treatment Not on filedocumented as of this encounter Visit Diagnoses + + | Diagnosis | + + | Mitral valve disorder 424.0 Mitral valve disorders | + + | Aortic valve disorder 424.1 Aortic valve disorders | + + documented in this encounter
--- OUTSIDE RECORDS SUMMARY | ~2019-09-03 | XMS | Encounter Summary ---
Demographics + + + | Address | [address] | | | [place] [address] | + + + | Home Phone [...] Josue Schaeffer | ECON | [address] | | | | | [place] [address] | | + + + + + | Dariana Dowling | ECON | Unknown | | + + + + + Care Team Providers + +------+ + | Care Enrollment Nurse Name | Role | Phone | + +------+ + | Josiah Walls MD | PCP | | + +------+ + Encounter Details +--------+ + + + + | Date | Type | Department | Care Team | Description | +--------+ + + + + | 05/16/ | Results | Registration [id number] | | | | 1997 | Only | [address] | | | | | | [address] Mailcode: [address] | | | | | | [place], [place] | | | | | | [address] | | | | | | [phone] | | | +--------+ + + + [...] | CBC TESTS 2 | Routin | 05/17/1996 | | Results for this | | | e | 12:19 PM | | procedure are in the | | | | PDT | | results section. | + +--------+ + + + | IMMUNOLOGY TESTS 1 | Routin | 05/17/1996 | | Results for this | | | e | 12:19 PM | | procedure are in the | | | | PDT | | results section. | + +--------+ + + + | MISCELLANEOUS | Routin | 05/17/1996 | | Results for this | | CHEMISTRY TESTS | e | 12:19 PM | | procedure are in the | | | | PDT | | results section. | + +--------+ + + + | COAGULATION TESTS 2 | Routin | 05/16/1996 | | Results for this | | | e | 2:29 PM | | procedure are in the | | | | PDT | | results section. | + +--------+ + + + documented in this encounter Results CBC TESTS 2 (05/17/1996 12:19 PM PDT) + + + + + + | Component | Value | Ref Range | Performed | Pathologist | | | | | At | Signature | + + + + + + | SEDIMENTATI | 16. | MM/HR | | | | ON RATE | | | | | + + + + + + + + | Specimen | + + | | + + + + + + + | Performing | Address | City/State/Zipcode | Phone Number | | Organization | | | | + + + + + | [facility] | [address] | [place] [address] | | | PATHOLOGY | [address] | | | + + + + + IMMUNOLOGY TESTS 1 (05/17/1996 12:19 PM PDT) + + + + + + | Component | Value | Ref Range | Performed | Pathologist | | | | | At | Signature | + + + + + + | BRADLEY SCREEN | NEGATIVE | | | | | ON HEP | | | | | | 2,SERUM | | | | | + + + + + + + + | Specimen | + + | | + + + + + + + | Performing | Address | City/State/Zipcode | Phone Number | | Organization | | | | + + + + + | [facility] | [address] | [place] [address] | | | PATHOLOGY | [address] | | | + + + + + MISCELLANEOUS CHEMISTRY TESTS (05/17/1996 12:19 PM PDT) + + + + + + | Component | Value | Ref Range | Performed | Pathologist | | | | | At | Signature | + + + + + + | TSH | 0.62 | mIU/ML | | | + + + + + + | FREE T4, | 1.2 | ng/dL | | | | SERUM | | | | | + + + + + + + + | Specimen | + + | | + + + + + + + | Performing | Address | City/State/Zipcode | Phone Number | | Organization | | | | + + + + + | [facility] | [address] | [place] [address] | | | PATHOLOGY | [address] | | | + + + + + COAGULATION TESTS 2 (05/16/1996 2:29 PM PDT) + + + + + + | Component | Value | Ref Range | Performed | Pathologist | | | | | At | Signature | + + + + + + | PROTHROMBIN | 22.7 (H) | SECONDS | | | | TIME | | | | | + + + + + + | PROTIME | 1.9 | SECONDS | | | | RATIO | | | | | + + + + + + | PROTHROMBIN | 3.8 | INR | | | | INR [...] | + + + + + | [facility] | [address] | [place] [address] | | | PATHOLOGY | [address] | | | + + + + + documented in this encounter Visit Diagnoses Not on filedocumented in this encounter"
--- OUTSIDE RECORDS SUMMARY | ~2019-09-03 | XMS | Encounter Summary ---
Demographics + + + | Address | [address] | | | [place] [address] | + + + | Home Phone | | + + + | Preferred Language | Unknown | + + + | Marital Status | Single | + + + | Zoroastrianism Affiliation | 1064 | + + + | Race | Unknown | + + + | Ethnic Group | Unknown | + + + Author + + + | Author | [facility] | | | and [place] | + + + | Organization | [facility] | | | and [...] Team Providers + +------+ + | Care Body Sander Name | Role | Phone | + +------+ + | Ramesh You DO | PCP | | + +------+ + Encounter Details +--------+ + + + + | Date | Type | Department | Care Team | Description | +--------+ + + + + | 07/13/ | Abstract | [facility] | Provider, | Hypothyroidism, | | 2019 | | CARDIOLOGY [address] | [address] | unspecified type; | | | | [place], | [address] | Coronary artery | | | | [place] [address] | [place] [address] | disease, angina | | | | [phone] | | presence | | | | | | unspecified, | | | | | | unspecified vessel | | | | | | or lesion type, | | | | | | unspecified whether | | | | | | [place] or | | | | | | transplanted heart | +--------+ + + + + Social [...] + + + | Blood Pressure | - | - | | + + + + + | Pulse | - | - | | + [...] + + + + | Weight | 54.9 kg (121 lb) | 07/13/2018 2:02 PM | | | | | PDT | | + + + + + | Height | 165.1 cm (5' 5") | 07/13/2018 2:02 PM | | | | | PDT | | + + + + + | Body Mass Index | 20.14 | 07/13/2018 2:02 PM | | | | | PDT | | + + + + + documented in this encounter Plan of Treatment Not on filedocumented as of this encounter Procedures + +--------+ + + + | Procedure Name | Priori | Date/Time | Associated Diagnosis | Comments | | | ty | | | | + +--------+ + + + | EXTERNAL LAB: BUN | Routin | 07/06/2018 | | Results for this | | | e | | | procedure are in the | | | | | | results section. | + +--------+ + + + | EXTERNAL LAB: | Routin | 07/06/2018 | | Results for this | | GLUCOSE | e | | | procedure are in the | | | | | | results section. | + +--------+ + + + | EXTERNAL LAB: ALT | Routin | 07/06/2018 | | Results for this | | | e | | | procedure are in the | | | | | | results section. | + +--------+ + + + | EXTERNAL LAB: AST | Routin | 07/06/2018 | | Results for this | | | e | | | procedure are in the | | | | | | results section. | + +--------+ + + + | EXTERNAL LAB: | Routin | 07/06/2018 | | Results for this | | ALKALINE PHOSPHATASE | e | | | procedure are in the | | | | | | results section. | + +--------+ + + + | EXTERNAL LAB: | Routin | 07/06/2018 | | Results for this | | BILIRUBIN, TOTAL | e | | | procedure are in the | | | | | | results section. | + +--------+ + + + | EXTERNAL LAB: | Routin | 07/06/2018 | | Results for this | | ALBUMIN | e | | | procedure are in the | | | | | | results section. | + +--------+ + + + | EXTERNAL LAB: | Routin | 07/06/2018 | | Results for this | | PROTEIN, TOTAL | e | | | procedure are in the | | | | | | results section. | + +--------+ + + + | EXTERNAL LAB: | Routin | 07/06/2018 | | Results for this | | CALCIUM | e | | | procedure are in the | | | | | | results section. | + +--------+ + + + | EXTERNAL LAB: CARBON | Routin | 07/06/2018 | | Results for this | | DIOXIDE | e | | | procedure are in the | | | | | | results section. | + +--------+ + + + | EXTERNAL LAB: | Routin | 07/06/2018 | | Results for this | | CHLORIDE | e | | | procedure are in the | | | | | | results section. | + +--------+ + + + | EXTERNAL LAB: | Routin | 07/06/2018 | | Results for this | | POTASSIUM | e | | | procedure are in the | | | | | | results section. | + +--------+ + + + | EXTERNAL LAB: SODIUM | Routin | 07/06/2018 | | Results for this | | | e | | | procedure are in the | | | | | | results section. | + +--------+ + + + | EXTERNAL LAB: CBC | Routin | 07/06/2018 | | Results for this | | | e | | | procedure are in the | | | | | | results section. | + +--------+ + + + | EXTERNAL LAB: TSH | Routin | 07/06/2018 | | Results for this | | | e | | | procedure are in the | | | | | | results section. | + +--------+ + + + | EXTERNAL LAB: | Routin | 07/06/2018 | | Results for this | | TRIGLYCERIDES | e | | | procedure are in the | | | | | | results section. | + +--------+ + + + | EXTERNAL LAB: | Routin | 07/06/2018 | | Results for this | | CHOLESTEROL, HDL | e | | | procedure are in the | | | | | | results section. | + +--------+ + + + | EXTERNAL LAB: | Routin | 07/06/2018 | | Results for this | | CHOLESTEROL, TOTAL | e | | | procedure are in the | | | | | | results section. | + +--------+ + + + | EXTERNAL LAB: | Routin | 07/06/2018 | | Results for this | | CHOLESTEROL, LDL | e | | | procedure are in the | | | | | | results section. | + +--------+ + + + | EXTERNAL LAB: | Routin | 07/06/2018 | | Results for this | | MICROALBUMIN/CREATIN | e | | | procedure are in the | | INE RATIO, URINE | | | | results section. | + +--------+ + + + | EXTERNAL LAB: EGFR | Routin | 07/06/2018 | | Results for this | | | e | | | procedure are in the | | | | | | results section. | + +--------+ + + + | EXTERNAL LAB: | Routin | 07/06/2018 | | Results for this | | CREATININE | e | | | procedure are in the | | | | | | results section. | + +--------+ + + + | LIPID PANEL | Routin | 07/06/2018 | | Results for this | | | e | | | procedure are in the | | | | | | results section. | + +--------+ + + + | CBC WITH | Routin | 07/06/2018 | | Results for this | | DIFFERENTIAL | e | | | procedure are in the | | | | | | results section. | + +--------+ + + + | COMPREHENSIVE | Routin | 07/06/2018 | | Results for this | | METABOLIC PANEL | e | | | procedure are in the | | | | | | results section. | + +--------+ + + + documented in this encounter Results Lipid Panel (07/06/2018) + +---------+ + + + | Component | Value | Ref Range | Performed | Pathologist | | | | | At | Signature | + +---------+ + + + | Chol/HDL | 4.5 (A) | 4.4 | | | | Ratio | | | | | + +---------+ + + + | Non HDL | 143 (A) | 130 | | | | Chol. | | | | | | (LDL+VLDL) | | | | | + +---------+ + + + + + | Specimen | + + | Blood | + + CBC with Differential (07/06/2018) + +---------+ + + + | Component | Value | Ref Range | Performed | Pathologist | | | | | At | Signature | + +---------+ + + + | MCH | 30.0 | 26.0 - 33.0 pg | | | + +---------+ + + + | MCHC | 33.0 | 30.0 - 36.0 | | | | | | g/dL | | | + +---------+ + + + | % Basophils | 1.1 (A) | 1.0 % | | | + +---------+ + + + + + | Specimen | + + | Blood | + + Comprehensive Metabolic Panel (07/06/2018) + +-------+ + + + | Component | Value | Ref Range | Performed | Pathologist | | | | | At | Signature | + +-------+ + + + | Anion Gap | 15 | 7 - 21 mmol/L | | | + +-------+ + + + | Bun/Creatin | 19.6 | 0.0 - 28.6 | | | | ine | | | | | + +-------+ + + + | Globulin | 3.1 | 1.8 - 3.5 | | | + +-------+ + + + | Albumin/Lili | 1.3 | 1.1 - 2.4 | | | | bulin Ratio | | | | | + +-------+ + + + + + | Specimen | + + | Blood | + + External Lab: BUN (07/06/2018) + +--------+ + + + | Component | Value | Ref Range | Performed | Pathologist | | | | | At | Signature | + +--------+ + + + | BUN, | 30 (A) | 6 - 23 | EXTERNAL | | | External | | | LAB | | + +--------+ + + + + + | Resulting Agency Comment | + + | [facility] | + + + +---------+ + + | Performing | Address | City/State/Zipcode | Phone Number | | Organization | | | | + +---------+ + + | EXTERNAL LAB | | | | + +---------+ + + External Lab: Glucose (07/06/2018) + +-------+ + + + | Component | Value | Ref Range | Performed | Pathologist | | | | | At | Signature | + +-------+ + + + | Glucose, | 97 | 70 - 100 | EXTERNAL | | | External | | | LAB | | + +-------+ + + + + + | Resulting Agency Comment | + + | [facility] | + + + +---------+ + + | Performing | Address | City/State/Zipcode | Phone Number | | Organization | | | | + +---------+ + + | EXTERNAL LAB | | | | + +---------+ + + External Lab: ALT (07/06/2018) + +-------+ + + + | Component | Value | Ref Range | Performed | Pathologist | | | | | At | Signature | + +-------+ + + + | ALT, | 9 | 7 - 52 | EXTERNAL | | | External | | | LAB | | + +-------+ + + + + + | Resulting Agency Comment | + + | [facility] | + + + +---------+ + + | Performing | Address | City/State/Zipcode | Phone Number | | Organization | | | | + +---------+ + + | EXTERNAL LAB | | | | + +---------+ + + External Lab: MARAH (07/06/2018) + +-------+ + + + | Component | Value | Ref Range | Performed | Pathologist | | | | | At | Signature | + +-------+ + + + | MARAH, | 26 | 13 - 39 | EXTERNAL | | | External | | | LAB | | + +-------+ + + + + + | Resulting Agency Comment | + + | [facility] | + + + +---------+ + + | Performing | Address | City/State/Zipcode | Phone Number | | Organization | | | | + +---------+ + + | EXTERNAL LAB | | | | + +---------+ + + External Lab: Alkaline Phosphatase (07/06/2018) + +-------+ + + + | Component | Value | Ref Range | Performed | Pathologist | | | | | At | Signature | + +-------+ + + + | ALP, | 49 | 31 - 130 | EXTERNAL | | | External | | | LAB | | + +-------+ + + + + + | Resulting Agency Comment | + + | [facility] | + + + +---------+ + + | Performing | Address | City/State/Zipcode | Phone Number | | Organization | | | | + +---------+ + + | EXTERNAL LAB | | | | + +---------+ + + External Lab: Bilirubin, Total (07/06/2018) + +-------+ + + + | Component | Value | Ref Range | Performed | Pathologist | | | | | At | Signature | + +-------+ + + + | Bilirubin, | 0.6 | 0 - 1.2 | EXTERNAL | | | Total, | | | LAB | | | External | | | | | + +-------+ + + + + + | Resulting Agency Comment | + + | [facility] | + + + +---------+ + + | Performing | Address | City/State/Zipcode | Phone Number | | Organization | | | | + +---------+ + + | EXTERNAL LAB | | | | + +---------+ + + External Lab: Albumin (07/06/2018) + +-------+ + + + | Component | Value | Ref Range | Performed | Pathologist | | | | | At | Signature | + +-------+ + + + | Albumin, | 3.9 | 3.5 - 5 | EXTERNAL | | | External | | | LAB | | + +-------+ + + + + + | Resulting Agency Comment | + + | [facility] | + + + +---------+ + + | Performing | Address | City/State/Zipcode | Phone Number | | Organization | | | | + +---------+ + + | EXTERNAL LAB | | | | + +---------+ + + External Lab: Protein, Total (07/06/2018) + +-------+ + + + | Component | Value | Ref Range | Performed | Pathologist | | | | | At | Signature | + +-------+ + + + | Protein, | 7.0 | 6 - 8.3 | EXTERNAL | | | Total, | | | LAB | | | External | | | | | + +-------+ + + + + + | Resulting Agency Comment | + + | [facility] | + + + +---------+ + + | Performing | Address | City/State/Zipcode | Phone Number | | Organization | | | | + +---------+ + + | EXTERNAL LAB | | | | + +---------+ + + External Lab: Calcium (07/06/2018) + +-------+ + + + | Component | Value | Ref Range | Performed | Pathologist | | | | | At | Signature | + +-------+ + + + | Calcium, | 9.6 | 0.5 - 10.3 | EXTERNAL | | | External | | | LAB | | + +-------+ + + + + + | Resulting Agency Comment | + + | [facility] | + + + +---------+ + + | Performing | Address | City/State/Zipcode | Phone Number | | Organization | | | | + +---------+ + + | EXTERNAL LAB | | | | + +---------+ + + External Lab: Carbon Dioxide (07/06/2018) + +-------+ + + + | Component | Value | Ref Range | Performed | Pathologist | | | | | At | Signature | + +-------+ + + + | Carbon | 25 | 19 - 31 | EXTERNAL | | | Dioxide, | | | LAB | | | External | | | | | + +-------+ + + + + + | Resulting Agency Comment | + + | [facility] | + + + +---------+ + + | Performing | Address | City/State/Zipcode | Phone Number | | Organization | | | | + +---------+ + + | EXTERNAL LAB | | | | + +---------+ + + External Lab: Chloride (07/06/2018) + +-------+ + + + | Component | Value | Ref Range | Performed | Pathologist | | | | | At | Signature | + +-------+ + + + | Chloride, | 104 | 95 - 112 | EXTERNAL | | | External | | | LAB | | + +-------+ + + + + + | Resulting Agency Comment | + + | [facility] | + + + +---------+ + + | Performing | Address | City/State/Zipcode | Phone Number | | Organization | | | | + +---------+ + + | EXTERNAL LAB | | | | + +---------+ + + External Lab: Potassium (07/06/2018) + +-------+ + + + | Component | Value | Ref Range | Performed | Pathologist | | | | | At | Signature | + +-------+ + + + | Potassium, | 4.3 | 3.6 - 5.1 | EXTERNAL | | | External | | | LAB | | + +-------+ + + + + + | Resulting Agency Comment | + + | [facility] | + + + +---------+ + + | Performing | Address | City/State/Zipcode | Phone Number | | Organization | | | | + +---------+ + + | EXTERNAL LAB | | | | + +---------+ + + External Lab: Sodium (07/06/2018) + +-------+ + + + | Component | Value | Ref Range | Performed | Pathologist | | | | | At | Signature | + +-------+ + + + | Sodium, | 140 | 132 - 143 | EXTERNAL | | | External | | | LAB | | + +-------+ + + + + + | Resulting Agency Comment | + + | [facility] | + + + +---------+ + + | Performing | Address | City/State/Zipcode | Phone Number | | Organization | | | | + +---------+ + + | EXTERNAL LAB | | | | + +---------+ + + External Lab: CBC (07/06/2018) + + + + + + | Component | Value | Ref Range | Performed | Pathologist | | | | | At | Signature | + + + + + + | WBC, | 4.7 | 4.5 - 11 | EXTERNAL | | | External | | | LAB | | + + + + + + | HGB, | 13.5 | 12 - 16 | EXTERNAL | | | External | | | LAB | | + + + + + + | HCT, | 40.7 | 35 - 45 | EXTERNAL | | | External | | | LAB | | + + + + + + | PLT, | 146 | 140 - 440 | EXTERNAL | | | External | | | LAB | | + + + + + + | Neutrophils | 64.4 | 39 - 80 | EXTERNAL | | | %, | | | LAB | | | External | | | | | + + + + + + | Lymphocytes | 21.6 (A) | 24 - 44 | EXTERNAL | | | %, | | | LAB | | | External | | | | | + + + + + + | Monocytes | 8.4 | 0 - 12 | EXTERNAL | | | %, External | | | LAB | | + + + + + + | Eosinophils | 4.5 | 0 - 6 | EXTERNAL | | | %, | | | LAB | | | External | | | | | + + + + + + | RBC, | 4.54 | 3.8 - 5.1 | EXTERNAL | | | External | | | LAB | | + + + + + + | MCV, | 90 | 81 - 99 | EXTERNAL | | | External | | | LAB | | + + + + + + | RDW, | 14.8 | 10.5 - 15 | EXTERNAL | | | External | | | LAB | | + + + + + + + + | Resulting Agency Comment | + + | [facility] | + + + +---------+ + + | Performing | Address | City/State/Zipcode | Phone Number | | Organization | | | | + +---------+ + + | EXTERNAL LAB | | | | + +---------+ + + External Lab: TSH (07/06/2018) + + + + + + | Component | Value | Ref Range | Performed | Pathologist | | | | | At | Signature | + + + + + + | TSH, | 2.17Comment: 3rd gen | 0.27 - 4.2 | EXTERNAL | | | External | | | LAB | | + + + + + + + + | Specimen | + + | Blood | + + + + | Resulting Agency Comment | + + | [facility] | + + + +---------+ + + | Performing | Address | City/State/Zipcode | Phone Number | | Organization | | | | + +---------+ + + | EXTERNAL LAB | | | | + +---------+ + + External Lab: Triglycerides (07/06/2018) + +-------+ + + + | Component | Value | Ref Range | Performed | Pathologist | | | | | At | Signature | + +-------+ + + + | Triglycerid | 130 | 30 - 150 | EXTERNAL | | | es, | | | LAB | | | External | | | | | + +-------+ + + + + + | Specimen | + + | Blood | + + + + | Resulting Agency Comment | + + | [facility] | + + + +---------+ + + | Performing | Address | City/State/Zipcode | Phone Number | | Organization | | | | + +---------+ + + | EXTERNAL LAB | | | | + +---------+ + + External Lab: Cholesterol, HDL (07/06/2018) + +-------+ + + + | Component | Value | Ref Range | Performed | Pathologist | | | | | At | Signature | + +-------+ + + + | HDL | 41.3 | 40 mg/dl | EXTERNAL | | | Cholesterol | | | LAB | | | , External | | | | | + +-------+ + + + + + | Specimen | + + | Blood | + + + + | Resulting Agency Comment | + + | [facility] | + + + +---------+ + + | Performing | Address | City/State/Zipcode | Phone Number | | Organization | | | | + +---------+ + + | EXTERNAL LAB | | | | + +---------+ + + External Lab: Cholesterol, Total (07/06/2018) + +-------+ + + + | Component | Value | Ref Range | Performed | Pathologist | | | | | At | Signature | + +-------+ + + + | Cholesterol | 184 | 200 mg/dl | EXTERNAL | | | , Total, | | | LAB | | | External | | | | | + +-------+ + + + + + | Specimen | + + | Blood | + + + + | Resulting Agency Comment | + + | [facility] | + + + +---------+ + + | Performing | Address | City/State/Zipcode | Phone Number | | Organization | | | | + +---------+ + + | EXTERNAL LAB | | | | + +---------+ + + External Lab: Cholesterol, LDL (07/06/2018) + +---------+ + + + | Component | Value | Ref Range | Performed | Pathologist | | | | | At | Signature | + +---------+ + + + | LDL | 117 (A) | 100 | EXTERNAL | | | Cholesterol | | | LAB | | | , Direct, | | | | | | External | | | | | + +---------+ + + + + + | Specimen | + + | Blood | + + + + | Resulting Agency Comment | + + | [facility] | + + + +---------+ + + | Performing | Address | City/State/Zipcode | Phone Number | | Organization | | | | + +---------+ + + | EXTERNAL LAB | | | | + +---------+ + + External Lab: Microalbumin/Creatinine Ratio, Urine (07/06/2018) + + + + + + | Component | Value | Ref Range | Performed | Pathologist | | | | | At | Signature | + + + + + + | Microalbumi | 93.4 (A) | 0 - 30 | EXTERNAL | | | n/Creatinin | | | LAB | | | e Ratio, | | | | | | External | | | | | + + + + + + + + | Specimen | + + | Blood | + + + + | Resulting Agency Comment | + + | [facility] | + + + +---------+ + + | Performing | Address | City/State/Zipcode | Phone Number | | Organization | | | | + +---------+ + + | EXTERNAL LAB | | | | + +---------+ + + External Lab: eGFR (07/06/2018) + +-------+ + + + | Component | Value | Ref Range | Performed | Pathologist | | | | | At | Signature | + +-------+ + + + | eGFR, | 33 | | EXTERNAL | | | External | | | LAB | | + +-------+ + + + + + | Specimen | + + | Blood | + + + + | Resulting Agency Comment | + + | [facility] | + + + +---------+ + + | Performing | Address | City/State/Zipcode | Phone Number | | Organization | | | | + +---------+ + + | EXTERNAL LAB | | | | + +---------+ + + External Lab: Creatinine (07/06/2018) + + + + + + | Component | Value | Ref Range | Performed | Pathologist | | | | | At | Signature | + + + + + + | Creatinine, | 1.53 (A) | 0.7 - 1.18 | EXTERNAL | | | External | | | LAB | | + + + + + + + + | Specimen | + + | Blood | + + + + | Resulting Agency Comment | + + | [facility] | + + + +---------+ + + | Performing | Address | City/State/Zipcode | Phone Number | | Organization | | | | + +---------+ + + | EXTERNAL LAB | | | | + +---------+ + + documented in this encounter Visit Diagnoses + + | Diagnosis | + + | Hypothyroidism, unspecified type | + + | Coronary artery disease, angina presence unspecified, unspecified vessel or lesion | | type, unspecified whether [place] or transplanted heart | + + documented in this encounter
--- OUTSIDE RECORDS SUMMARY | ~2019-09-03 | XMS | Encounter Summary ---
Demographics + + + | Address | [address] | | | [place] [address] | + + + | Home Phone [...] Josue Schaeffer | ECON | [address] | | | | | [place] [address] | | + + + + + | Dariana Dowling | ECON | Unknown | | + + + + + Care Team Providers + +------+ + | Care Director On Air Name | Role | Phone | + [...] Closed | | Cardiology | Diagnoses | Eddie, | Car Echo | | | | | Rheumatic | MD Emanuel | [address] | | | | | aortic | [address] | [address] | | | | | stenosis | Ave | [address] | | | | | with | [place], [place] | [place] | | | | | insufficienc | [address] | Building, [address] | | | | | [address] | | floor | | | | | valve | | [place], [place] | | | | | disorders(42 | | [address] | | | | | 4.0) Aortic | | Phone: | | | | | valve | | [phone] | | | | | disorders | | | | | | | Procedures | | | | | | | WI ECHO | | | | | | | XTHORACIC,CO | | | | | | | NG | | | | | | | ANOM,COMPLET | | | | | | | E WI | | | | | | | DOPPLER ECHO | | | | | | | | | | | | | | HEART,COMPLE | | | | | | | TE WI | | | | | | | DOPPLER | | | | | | | COLOR FLOW | | | | | | | VELOCITY MAP | | | +--------+--------+ + + + + Encounter Details +--------+ + + + + | Date | Type | Department | Care Team | Description | +--------+ + + + + | 11/15/ | Hospital | Cardiac | | | | 2008 | Encounter | Non-Invasive Testing | | | | | | at [facility] | | | | | | [address] | | | | | | [address] | | | | | | [facility] | | | | | | floor [place], [place] | | | | | | [address] | | | | | | [phone] | | | +--------+ + + + [...] + documented as of this encounter Progress Day Ramirez - 11/29/2007 12:38 PM PDTTransthoracic echocardiogram completed. Final report to follow. Day Pratt - 11/16/2007 11:2 6 AM PDTTransthoracic echocardiogram completed. Final report to follow. documented in this encounter Plan of Treatment Not on filedocumented as of this encounter Procedures + +--------+ + + + | Procedure Name | Priori | Date/Time | Associated Diagnosis | Comments | | | ty | | | | + +--------+ + + + | ECHO PROCEDURE | | 11/17/2007 | | Results for this | | | | 9:48 AM | | procedure are in the | | | | PDT | | results section. 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
--- OUTSIDE RECORDS SUMMARY | ~2019-09-03 | XMS | Encounter Summary ---
Demographics + + + | Address | [address] | | | [place] [address] | + + + | Home Phone | | + + + | Preferred Language | Unknown | + + + | Marital Status | | + + + | Presybeterian Affiliation | VANDA | + + + | Race | White | + + + | Ethnic Group | Not or | + + + Author + + + | Author | [facility] | + + + | Organization | [facility] | + + + | Address | Unknown | + + + | Phone | Unavailable | + + + Support + + + + + | Name | Relationship | Address | Phone | + + + + + | Josue Schaeffer | ECON | [address] | | | | | [place] [address] | | + + + + + | Dariana Dowling | ECON | Unknown | | + + + + + Care Team Providers + +------+ + | Care Employment Educational Coord Name | Role | Phone | + +------+ + | Josiah Walls MD | PCP | | + +------+ + Encounter Details +--------+ + + + + | Date | Type | Department | Care Team | Description | +--------+ + + + + | 01/17/ | Results | Registration [id number] | | | | 1997 | Only | [address] | | | | | | [address] Mailcode: [id number] | | | | | | [place], [place] | | | | | | [address] | | | | | | [phone] | | | +--------+ + + + [...] | COAGULATION TESTS 2 | Routin | 01/17/1997 | | Results for this | | | e | 2:13 PM | | procedure are in the | | | | PST | | results section. | + +--------+ + + + documented in this encounter Results COAGULATION TESTS 2 (01/17/1997 2:13 PM PST) + + + + + + | Component | Value | Ref Range | Performed | Pathologist | | | | | At | Signature | + + + + + + | PROTHROMBIN | 21.1 (H) | SECONDS | | | | TIME | | | | | + + + + + + | PROTIME | 1.8 | SECONDS | | | | RATIO | | | | | + + + + + + | PROTHROMBIN | 3.45 | INR | | | | INR [...] | + + + + + | [facility] | [address] | [place] [address] | | | PATHOLOGY | [address] | | | + + + + + documented in this encounter Visit Diagnoses Not on filedocumented in this encounter"
--- OUTSIDE RECORDS SUMMARY | ~2019-09-03 | XMS | Encounter Summary ---
Demographics + + + | Address | [address] | | | [place] [address] | + + + | Home Phone [...] + + + | Author | [facility] | + + + | Organization | [facility] | + + + | Address | Unknown | + + + | Phone | Unavailable | + + + Support + + + + + | Name | Relationship | Address | Phone | + + + + + | Josue Schaeffer | ECON | [address] | | | | | [place] [address] | | + + + + + | Dariana Dowling | ECON | Unknown | | + + + + + Care Team Providers + +------+ + | Care Automotive Upholsterer Name | Role | Phone | + +------+ + | Josiah Walls MD | PCP | | + +------+ + Reason for Visit +---------+ + | Reason | Comments | +---------+ + | Syncope | | +---------+ + Encounter Details +--------+ + + + + | Date | Type | Department | Care Team | Description | +--------+ + + + + | 09/26/ | Telephone | Cardiology General | Emanuel Morgan, | Syncope | | 2009 | | at [facility] [address] | | | | | | jaquelin [facility] | | | | | | [facility], | | | | | | [facility] | | | | | | Floor [place], [place] | | | | | | [address] | | | | | | [phone] | | | +--------+ + + + [...]
--- OUTSIDE RECORDS SUMMARY | ~2019-09-03 | XMS | Encounter Summary ---
Demographics + + + | Address | [address] | | | [place] [address] | + + + | Home Phone | | + + + | Preferred Language | Unknown | + + + | Marital Status | | + + + | Mormon Affiliation | VANDA | + + + [...] Josue Schaeffer | ECON | [address] | | | | | [place] [address] | | + + + + + | Dariana Dowling | ECON | Unknown | | + + + + + Care Team Providers + +------+ + | Care Cork Pressing Machine Operator Name | Role | Phone | + +------+ + | Josiah Walls MD | PCP | | + +------+ + Encounter Details +--------+ + + + + | Date | Type | Department | Care Team | Description | +--------+ + + + + | 03/28/ | Results | Registration [id number] | | | | 1998 | Only | [address] | | | | | | [address] Mailcode: [id number] | | | | | | [place], [place] | | | | | | [address] | | | | | | [phone] | | | +--------+ + + + [...] | COAGULATION TESTS 2 | Routin | 03/29/1997 | | Results for this | | | e | 6:26 AM | | procedure are in the | | | | PST | | results section. | + +--------+ + + + | CHEMISTRY TESTS 4 | Routin | 03/28/1997 | | Results for this | | | e | 12:50 PM | | procedure are in the | | | | PST | | results section. | + +--------+ + + + | CHEMISTRY TESTS 3 | Routin | 03/28/1997 | | Results for this | | | e | 12:50 PM | | procedure are in the | | | | PST | | results section. | + +--------+ + + + | CBC TESTS 2 | Routin | 03/28/1997 | | Results for this | | | e | 12:50 PM | | procedure are in the | | | | PST | | results section. | + +--------+ + + + | COAGULATION TESTS 2 | Routin | 03/28/1997 | | Results for this | | | e | 12:50 PM | | procedure are in the | | | | PST | | results section. | + +--------+ + + + | CHEMISTRY TESTS 2 | Routin | 03/28/1997 | | Results for this | | | e | 12:50 PM | | procedure are in the | | | | PST | | results section. | + +--------+ + + + | CULTURE, BLOOD BACTI | Routin | 03/28/1997 | | Results for this | | & YEAST | e | 12:50 PM | | procedure are in the | | | | PST | | results section. | + +--------+ + + + | MICROBIOLOGY TESTS 1 | Routin | 03/28/1997 | | Results for this | | | e | 12:45 PM | | procedure are in the | | | | PST | | results section. | + +--------+ + + + | CULTURE, BLOOD BACTI | Routin | 03/28/1997 | | Results for this | | & YEAST | e | 12:45 PM | | procedure are in the | | | | PST | | results section. | + +--------+ + + + documented in this encounter Results COAGULATION TESTS 2 (03/29/1997 6:26 AM PST) + + + + + + | Component | Value | Ref Range | Performed | Pathologist | | | | | At | Signature | + + + + + + | PROTHROMBIN | 20.8 (H) | SECONDS | | | | TIME | | | | | + + + + + + | PROTIME | 1.8 | SECONDS | | | | RATIO | | | | | + + + + + + | PROTHROMBIN | 3.34 | INR | | | | INR | | | | | + + + + + + | NOTE: | | INR | | | | | INTENSITY:INR=2.5-3.5;PT | | | | | | R=1.6-1.9 | | | | + + + + + + | APTT | 41.5 (H) | SECONDS | | | + + + + + + + + | Specimen | + + | | + + + + + + + | Performing | Address | City/State/Zipcode | Phone Number | | Organization | | | | + + + + + | [facility] | [address] | [place] [address] | | | PATHOLOGY | [address] | | | + + + + + COAGULATION TESTS 2 (03/28/1997 12:50 PM PST) + + + + + + | Component | Value | Ref Range | Performed | Pathologist | | | | | At | Signature | + + + + + + | PROTHROMBIN | 22.9 (H) | SECONDS | | | | TIME | | | | | + + + + + + | PROTIME | 1.9 | SECONDS | | | | RATIO | | | | | + + + + + + | PROTHROMBIN | 4.11 | INR | | | | INR | | | | | + + + + + + | NOTE: | | INR | | | | | INTENSITY:INR=2.5-3.5;PT | | | | | | R=1.6-1.9 | | | | + + + + + + | APTT | 41.3 (H) | SECONDS | | | + + + + + + + + | Specimen | + + | | + + + + + + + | Performing | Address | City/State/Zipcode | Phone Number | | Organization | | | | + + + + + | [facility] | [address] | [place] [address] | | | PATHOLOGY | [address] | | | + + + + + CBC TESTS 2 (03/28/1997 12:50 PM PST) + + + + + + | Component | Value | Ref Range | Performed | Pathologist | | | | | At | Signature | + + + + + + | WHITE CELL | 6.9 | K/CU MM | | | | COUNT | | | | | + + + + + + | RED CELL | 3.99 | M/CU MM | | | | COUNT | | | | | + + + + + + | HEMOGLOBIN | 11.9 (L) | GM/DL | | | + + + + + + | HEMATOCRIT | 35.9 (L) | % | | | + + + + + + | MCV | 89.8 | [place] | | | + + + + + + | MCH | 29.9 | PG | | | + + + + + + | MCHC | 33.2 | GM/DL | | | + + + + + + | RDW | 12.7 | % | | | + + + + + + | PLATELET | 190. | K/CU MM | | | | COUNT | | | | | + + + + + + | MPV | 8.7 | [place] | | | + + + + + + + + | Specimen | + + | | + + + + + + + | Performing | Address | City/State/Zipcode | Phone Number | | Organization | | | | + + + + + | [facility] | [address] | [place] [address] | | | PATHOLOGY | [address] | | | + + + + + CHEMISTRY TESTS 2 (03/28/1997 12:50 PM PST) + + + + + + | Component | Value | Ref Range | Performed | Pathologist | | | | | At | Signature | + + + + + + | CHOLESTEROL | 192. | mg/dL | | | | (LAB) | | | | | + + + + + + + + | Specimen | + + | | + + + + + + + | Performing | Address | City/State/Zipcode | Phone Number | | Organization | | | | + + + + + | [facility] | [address] | [place] [address] | | | PATHOLOGY | [address] | | | + + + + + CHEMISTRY TESTS 4 (03/28/1997 12:50 PM PST) + + + + + + | Component | Value | Ref Range | Performed | Pathologist | | | | | At | Signature | + + + + + + | SODIUM, | 142. | mmol/l | | | | PLASMA | | | | | | (LAB) | | | | | + + + + + + | POTASSIUM, | 3.8 | mmol/l | | | | PLASMA | | | | | | (LAB) | | | | | + + + + + + | CHLORIDE, | 111. (H) | mmol/l | | | | PLASMA | | | | | | (LAB) | | | | | + + + + + + | TOTAL CO2, | 27. | mmol/l | | | | PLASMA | | | | | | (LAB) | | | | | + + + + + + | BUN, PLASMA | 17. | mg/dL | | | | (LAB) | | | | | + + + + + + | CREATININE | 1.1 | mg/dL | | | | PLASMA | | | | | | (LAB) | | | | | + + + + + + | GLUCOSE, | 113. (H) | mg/dL | | | | PLASMA | | | | | | (LAB) | | | | | + + + + + + | CALCIUM, | 9.9 | mg/dL | | | | PLASMA | | | | | | (LAB) | | | | | + + + + + + | MAGNESIUM,P | 2. | mg/dL | | | | LASMA | | | | | + + + + + + | PHOSPHORUS, | 3.3 | mg/dL | | | | PLASMA [...] + + + | ALT (SGPT) | 15. | U/L | | | + + + + + + | ALK PHOS | 57. | U/L | | | + + + + + + | LD TOTAL, | 345. (H) | U/L | | | | PLASMA | | | | | + + + + + + | BILIRUBIN | 0. | mg/dL | | | | DIRECT | | | | | + + + + + + | BILIRUBIN | 0.6 | mg/dL | | | | TOTAL | | | | | + + + + + + | TOTAL | 7.3 | GM/DL | | | | PROTEIN, | | | | | | PLASMA | | | | | | (LAB) | | | | | + + + + + + | ALBUMIN, | 4.4 | GM/DL | | | | PLASMA | | | | | | (LAB) | | | | | + + + + + + + + | Specimen | + + | | + + + + + + + | Performing | Address | City/State/Zipcode | Phone Number | | Organization | | | | + + + + + | [facility] | [address] | [place] [address] | | | PATHOLOGY | [address] | | | + + + + + CHEMISTRY TESTS 3 (03/28/1997 12:50 PM PST) + + + + + + | Component | Value | Ref Range | Performed | Pathologist | | | | | At | Signature | + + + + + + | PRIMARY TX | COLLECTD | | | | | SET | | | | | + + + + + + + + | Specimen | + + | | + + + + + + + | Performing | Address | City/State/Zipcode | Phone Number | | Organization | | | | + + + + + | [facility] | [address] | [place] [address] | | | PATHOLOGY | [address] | | | + + + + + CULTURE, BLOOD BACTI & YEAST (03/28/1997 12:50 PM PST) + + + + + + | Component | Value | Ref Range | Performed | Pathologist | | | | | At | Signature | + + + + + + | CULTURE | Cult & Susc Bld | | | | | RESULT | ""Test Ordered | | | | | | BLOOD CULTURESource | | | | | | Body Site RIGHT | | | | | | ANTECUBITALReport Status | | | | | | FINALPrelim | | | | | | Result NO | | | | | | BACTERIA/YEAST ISOLATED | | | | | | TO DATECulture Result | | | | | | NO BACTERIA OR YEAST | | | | | | ISOLATEDDate Of Final | | | | | | Re [id number] | | | | + + + + + + + + | Specimen | + + | | + + + + + + + | Performing | Address | City/State/Zipcode | Phone Number | | Organization | | | | + + + + + | [facility] | [address] | [place] [address] | | | PATHOLOGY | [address] | | | + + + + + CULTURE, BLOOD BACTI & YEAST (03/28/1997 12:45 PM PST) + + + + + + | Component | Value | Ref Range | Performed | Pathologist | | | | | At | Signature | + + + + + + | CULTURE | Cult & Susc Bld | | | | | RESULT | ""Test Ordered | | | | | | BLOOD CULTURESource | | | | | | Body Site LEFT | | | | | | ANTECUBITALReport Status | | | | | | FINALPrelim | | | | | | Result NO | | | | | | BACTERIA/YEAST ISOLATED | | | | | | TO DATECulture Result | | | | | | NO BACTERIA OR YEAST | | | | | | ISOLATEDDate Of Final | | | | | | Re [id number] | | | | + + + + + + + + | Specimen | + + | | + + + + + + + | Performing | Address | City/State/Zipcode | Phone Number | | Organization | | | | + + + + + | [facility] | [address] | [place] [address] | | | PATHOLOGY | [address] | | | + + + + + MICROBIOLOGY TESTS 1 (03/28/1997 12:45 PM PST) + + + + + + | Component | Value | Ref Range | Performed | Pathologist | | | | | At | Signature | + + + + + + | CULTURE | Cult & Susc Bld | | | | | RESULT | COLLECTDCult & Susc | | | | | | Bld COLLECTD | | | | + + + + + + + + | Specimen | + + | | + + + + + + + | Performing | Address | City/State/Zipcode | Phone Number | | Organization | | | | + + + + + | [facility] | [address] | [place] [address] | | | PATHOLOGY | [address] | | | + + + + + documented in this encounter Visit Diagnoses Not on filedocumented in this encounter
--- OUTSIDE RECORDS SUMMARY | ~2019-09-03 | XMS | Encounter Summary ---
Demographics + + + | Address | [address] | | | [place] [address] | + + + | Home Phone | | + + + | Preferred Language | Unknown | + + + | Marital Status | | + + + | Congregation Affiliation | VANDA | + + + [...] Josue Schaeffer | ECON | [address] | | | | | [place] [address] | | + + + + + | Dariana Dowling | ECON | Unknown | | + + + + + Care Team Providers + +------+ + | Care Automation Lead Name | Role | Phone | + +------+ + PCP | Unavailable | + +------+ + Encounter Details +--------+ + + + + | Date | Type | Department | Care Team | Description | +--------+ + + + + | 10/14/ | Results | Otolaryngology | Mayra Vega MD | | | 2000 | Only | [facility] [address] | [address] | | | | | [address] | [place], | | | | | Mailcode: [id number] | [place] [address] | | | | | [address] | [phone] | | | | | [place], [place] | | | | | | [address] | | | | | | [phone] | | | +--------+ + + + [...] | CT SINUSITIS SCREEN | Routin | 10/14/2000 | | Results for this | | | e | 1:10 PM | | procedure are in the | | | | PDT | | results section. | + +--------+ + + + documented in this encounter Results CT SINUSITIS SCREEN (10/14/2000 1:10 PM PDT) + + + + + + | Component | Value | Ref Range | Performed | Pathologist | | | | | At | Signature | + + + + + + | CT | Radiologist 1: ROXY, | | | | | SINUSITIS | Kt STONECT SCAN OF THE | | | | | SCREEN | PARANASAL SINUSES: | | | | | | 10/14/2000 Dictated | | | | | | 10/16/2000 CLINICAL | | | | | | HISTORY: Patient is a | | | | | | 60-year-old female with | | | | | | chronicsinusitis, | | | | | | reassessment. | | | | | | COMPARISON: There are | | | | | | no prior studies | | | | | | currently available | | | | | | forcomparison. | | | | | | TECHNIQUE: Coronal | | | | | | scans were performed | | | | | | through the paranasal | | | | | | sinuseswithout contrast. | | | | | | FINDINGS: The patient | | | | | | has undergone bilateral | | | | | | ethmoidectomy,maxillary | | | | | | antrostomy and middle | | | | | | turbinectomy. There is | | | | | | mucosal thickening with | | | | | | an air-fluid level in | | | | | | the rightmaxillary | | | | | | sinus. The sinus wall | | | | | | is moderately thickened. | | | | | | The maxillary sinuses | | | | | | are opacified, and the | | | | | | residual anterior | | | | | | ethmoidsinuses are also | | | | | | partially opacified. | | | | | | The left maxillary | | | | | | sinus andsphenoid sinus | | | | | | are clear. There is | | | | | | moderate bilateral | | | | | | cavernous carotid | | | | | | ossification. The | | | | | | visualized orbits and | | | | | | infratemporal fossa are | | | | | | unremarkable. | | | | | | IMPRESSION: Extensive | | | | | | bilateral previous | | | | | | ethmoidectomies and | | | | | | antrostomies.Moderate | | | | | | left frontal and right | | | | | | maxillary sinusitis. END | | | | | | [...]
--- OUTSIDE RECORDS SUMMARY | ~2019-09-03 | XMS | Encounter Summary ---
Demographics + + + | Address | [address] | | | [place] [address] | + + + | Home Phone | | + + + | Preferred Language | Unknown | + + + | Marital Status | | + + + | Buddhist Affiliation | VANDA | + + + | Race | White | + + + | Ethnic Group | Not or | + + + Author + + + | Author | [facility] | + + + | Organization | [facility] | + + + | Address | Unknown | + + + | Phone | Unavailable | + + + Support + + + + + | Name | Relationship | Address | Phone | + + + + + | Josue Schaeffer | ECON | [address] | | | | | [place] [address] | | + + + + + | Dariana Dowling | ECON | Unknown | | + + + + + Care Team Providers + +------+ + | Care Dock Operator Name | Role | Phone | + +------+ + PCP | Unavailable | + +------+ + Encounter Details +--------+ + + + + | Date | Type | Department | Care Team | Description | +--------+ + + + + | 10/18/ | Office | General Internal | Note, Outpatient | Progress Note | | 1995 | Visit-Trans | Medicine [address] | Clinic | | | | [address] | [address] | | | | | | Mailcode: [address] | | | | | | Outpatient Clinic | | | | | | [facility], [address] | | | | | | [place], [place] | | | | | | [address] | | | | | | [phone] | | | +--------+ + + + [...] as of this encounter Progress Notes Interface, Unit Control Clerk In - 04/28/2006 1:00 AM PDT CLINIC DATE: 10/19/95 OTOLARYNGOLOGY CLINIC SUBJECTIVE: Mrs. Schaeffer returns at this time actually doing quite well. I had put her on some amoxicillin in early September and she really did not do any better. I then switched her to clindamycin and she said after about two days, she was much improved and has continued to do well. She has been having some problems with her coagulation studies, but otherwise she has been doing reasonably well. OBJECTIVE: NOSE: The patient was sprayed with ephedrine and xylocaine solution. She shrank down nicely. I could not see any puss or purulence in her nose. She was then examined with a flexible nasopharyngoscope and I could see into both nostrils quite nicely. The ethmoid blocks are well healed. There is no evidence of recurrent polyps getting into the natural ostium on both sides and the mucosa looks normal in both maxillary sinuses. IMPRESSION: Good postoperative course with no evidence of recurrent polyps and no infections at this time. RECOMMENDATIONS: The patient is to return to see me in three months, or call me sooner if she has further problems. Maxwell Garcia M.D. Professor, Otolaryngology Head and Neck Surgery MALIA/ana nterface, Unit Control Clerk In - 04/28/2006 1:00 AM PDT CLINIC DATE: 10/19/95 CARDIOLOGY CLINIC: SUBJECTIVE: Mrs. 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 She has had no paroxysmal nocturnal dyspnea or orthopnea. She had been bothered recently by fast heart beats, which resolved rather abruptly after the institution of Cleocin antibiotic treatment for a sinus infection. Prior to that we had planned for her to get an event monitor placed using some patches that would not cause her skin to break out. At the time the thought was that possibly she had intermittent episodes of atrial fibrillation. She now has the event monitor on, as of today. She notes that she has gained weight and her weight today is up to 132 lbs. She usually runs in the 126 range. CURRENT MEDICATIONS: Her current medications include Coumadin, Claritin, Flonase, Prinivil, Tylenol, Lasix p.r.n. and she has stopped taking the Premarin. She has had no syncope or chest pain recently. OBJECTIVE: VITAL SIGNS: On physical examination her blood pressure was 120/70. Her pulse was 76 and regular. Her weight was 132 lbs. NECK: Her neck veins were distended at approximately 6 to 8 cm. LUNGS: Her lungs were clear to auscultation. CARDIOVASCULAR: The cardiac examination revealed a normal S1 and S2, with crisp prosthetic valve sounds and a grade I/ systolic ejection murmur heard along the left sternal border, without radiation to the carotids or the axilla. It was unclear as to whether or not the murmur changed with inspiration. Her liver was not clearly pulsatile. There was a possible V-wave in her jugular venous pulse tracing. Her liver, however, was not enlarged and no spleen tip was palpable. EXTREMITIES: Her extremities had no peripheral edema. ASSESSMENT/PLAN: Mrs. Schaeffer appears to have recovered substantially from the arrhythmia that she might have been having, associated with her nasal sinus infection. It makes one wonder whether her arrhythmia is related to excess catecholamines at the time of the pain, associated with this, since she has other pain symptomatologies in her back and elsewhere, perhaps the arrhythmia may still be provoked and thus we will leave her event monitor on and ask her to check her blood pressure and record a diary of any symptoms that she might be having. We have scheduled her for a return clinic appointment in six months' time. I have suggested that she start retaking the Premarin at a lower dose than she has taken in the first place, but I suggested that this is important for the prevention of coronary disease as well as osteoporosis. She has agreed to take it at a half dose of 0.312 mg daily. She is going to be checking with Dr. Arzola for follow-up of her mammography. We have scheduled her for a return clinic appointment in six months' time. Gorge Rao M.D. Professor, Medicine Division of Cardiology RW /evelyne P cc: Maxwell Garcia M.D. Professor, Otolaryngology Head and Neck Surgery Ihsan Carias M.D. Professor, Surgery Chief, Division of Cardiopulmonary Surgery CARTER ARZOLA MD [facility] [address], [address] [facility] [address] documented in this encounter Plan of Treatment Not on filedocumented as of this encounter Visit Diagnoses Not on filedocumented in this encounter"
--- OUTSIDE RECORDS SUMMARY | ~2019-09-03 | XMS | Encounter Summary ---
Demographics + + + | Address | [address] | | | [place] [address] | + + + | Home Phone | | + + + | Preferred Language | Unknown | + + + | Marital Status | | + + + | Protestant Affiliation | VANDA | + + + | Race | White | + + + | Ethnic Group | Not or | + + + Author + + + | Author | [facility] | + + + | Organization | [facility] | + + + | Address | Unknown | + + + | Phone | Unavailable | + + + Support + + + + + | Name | Relationship | Address | Phone | + + + + + | Josue Schaeffer | ECON | [address] | | | | | [place] [address] | | + + + + + | Draiana Dowling | ECON | Unknown | | + + + + + Care Team Providers + +------+ + | Care Vacuum Cleaner Assembler Name | Role | Phone | + +------+ + PCP | Unavailable | + +------+ + Encounter Details +--------+ + + + + | Date | Type | Department | Care Team | Description | +--------+ + + + + | 10/16/ | Telephone | Cardiology [facility] at | Emanuel Morgan, | | | 2007 | | [facility] [address] | | | | | | [facility] | | | | | | Health and Healing, | | | | | | [facility] | | | | | | Floor [place], [place] | | | | | | [address] | | | | | | [phone] | | | +--------+ + + + [...] as of this encounter Plan of Treatment + +------+--------+ + + | Name | Type | Priori | Associated Diagnoses | Date/Time | | | | ty | | | + +------+--------+ + + | TRANSTHORACIC | ECG | Routin | Rheumatic Aortic | 11/16/2007 9:41 AM | | ECHOCARDIOGRAM, | | e | Stenosis with | PDT | | ADULT | | | Insufficiency | | | | | | Mitral valve | | | | | | disorder 424.0 | | | | | | Aortic valve | | | | | | disorder 424.1 | | + +------+--------+ + + documented as of this encounter Results COMPLETE METABOLIC SET (NA,K,CL,CO2,BUN,CREAT,GLUC,CA,AST,ALT,BILI TOTAL,ALK PHOS,ALB,PROT TOTAL) [...] Performed At | + + + | [id number] Estimated GFR > 60 mL/min/1.73 sq m if non- | [facility] | | [place] [id number] Estimated GFR > 60 mL/min/1.73 sq m if | DEPARTMENT OF | | [place] GFR is estimated using the MDRD equation [...] | + + + + + | [facility] | [address] | [place] [address] | | | PATHOLOGY | [address] | | | + + + + + | [facility] | [address] | [place] [address] | | | PATHOLOGY | [address] [...] DEPARTMENT OF | [address] | [place] [address] | | | PATHOLOGY | [address] | | | + + + + + | [facility] | [address] | [place] [address] | | | PATHOLOGY | [address] [...]
--- OUTSIDE RECORDS SUMMARY | ~2019-09-03 | XMS | Encounter Summary ---
Demographics + + + | Address | [address] | | | [place] [address] | + + + | Home Phone | | + + + | Preferred Language | Unknown | + + + | Marital Status | | + + + | Hoahaoism Affiliation | VANDA | + + + | Race | White | + + + | Ethnic Group | Not or | + + + Author + + + | Author | [facility] | + + + | Organization | [facility] | + + + | Address | Unknown | + + + | Phone | Unavailable | + + + Support + + + + + | Name | Relationship | Address | Phone | + + + + + | Josue Schaeffer | ECON | [address] | | | | | [place] [address] | | + + + + + | Dariana Dowling | ECON | Unknown | | + + + + + Care Team Providers + +------+ + | Care Lead Esthetician Name | Role | Phone | + +------+ + PCP | Unavailable | + +------+ + Encounter Details +--------+ + + + + | Date | Type | Department | Care Team | Description | +--------+ + + + + | 10/05/ | Otr Driver | Cardiology [facility] at | Emanuel Morgan, | Unspecified | | 2006 | | [facility] [address] | | Rheumatic Heart | | | | [facility] | | Disease; Rheumatic | | | | Health and Healing, | | Aortic Stenosis with | | | | Building | | Insufficiency | | | | Floor [place], [place] | | | | | | [address] | | | | | | [phone] | | | +--------+ + + + [...] | TRANSTHORACIC | ECG | Routin | Unspecified | Ordered: 10/05/2006 | | ECHOCARDIOGRAM, | | e | Rheumatic Heart | | | ADULT | | | Disease Rheumatic | | | | | | Aortic Stenosis with | | | | | | Insufficiency | | + +------+--------+ + + documented as of this encounter Visit Diagnoses + + | Diagnosis | + + | Rheumatic heart disease, unspecified | + + | Rheumatic aortic stenosis with insufficiency | + + documented in this encounter"
--- OUTSIDE RECORDS SUMMARY | ~2019-09-03 | XMS | Encounter Summary ---
Demographics + + + | Address | [address] | | | [place] [address] | + + + | Home Phone | | + + + | Preferred Language | Unknown | + + + | Marital Status | | + + + | Christianity Affiliation | VANDA | + + + [...] Josue Schaeffer | ECON | [address] | | | | | [place] [address] | | + + + + + | Dariana Dowling | ECON | Unknown | | + + + + + Care Team Providers + +------+ + | Care Car Pusher Name | Role | Phone | + +------+ + PCP | Unavailable | + +------+ + Encounter Details +--------+------+ + + + | Date | Type | Department | Care Team | Description | +--------+------+ + + + | 11/15/ | Lab | Laboratory at [facility] | | Mitral valve | | 2007 | | [address] | | disorder 424.0; LONG | | | | [facility] | | TERM | | | | and Healing, | | ANTICOAGULATION | | | | Building [address] | | V58.61 | | | | [place], [place] | | | | | | [address] | | | | | | [phone] | | | +--------+------+ + + + Social History [...] | + +--------+ + + + | [facility] - INR | Routin | 11/16/2007 | Mitral valve | Results for this | | FINGERSTICK | e | 2:15 PM | disorder 424.0 LONG | procedure are in the | | | | PDT | TERM | results section. | | | | | ANTICOAGULATION | | | | | | V58.61 | | + +--------+ + + + documented in this encounter Results [facility] - INR (PROTHROMBINTIME) (11/16/2007 2:15 PM PDT) + + + + + + | Component | Value | Ref Range | Performed | Pathologist | | | | | At | Signature | + + + + + + | [facility] | 3.70 (H)Comment: | 0.98 - 1.20 INR | [facility] | | | | PT INR Therapeutic | | DEPARTMENT | | | | ranges for full | | OF | | | | anticoagulation: | | PATHOLOGY | | | | INR for | | | | | | Venous Thromboembolism | | | | | | | | | | | | (2.0-3.0) INR | | | | | | INR [...] | + + + + + | [facility] | [address] [facility] | [place] [address] | | | PATHOLOGY | [address] | | | + + + + + | [facility] | [address] | [place] [address] | | | PATHOLOGY | [address] | | | + + + + + documented in this encounter Visit Diagnoses + + | Diagnosis | + + | Mitral valve disorder 424.0 Mitral valve disorders | + + | [facility] ANTICOAGULATION V58.61 Long-term (current) use of anticoagulants | + + documented in this encounter"
--- OUTSIDE RECORDS SUMMARY | ~2019-09-03 | XMS | Encounter Summary ---
Demographics + + + | Address | [address] | | | [place] [address] | + + + | Home Phone [...] Josue Schaeffer | ECON | [address] | | | | | [place] [address] | | + + + + + | Dariana Dowling | ECON | Unknown | | + + + + + Care Team Providers + +------+ + | Care Tennis Racket Repairer Name | Role | Phone | + +------+ + | Enoc Lee NP | PCP | | + +------+ + Reason for Visit +--------+ + | Reason | Comments | +--------+ + | Other | Pt called. She stated that she's taking waterpills? She wants to | | | know if she can up the dosage? | +--------+ + Encounter Details +--------+ + + + + | Date | Type | Department | Care Team | Description | +--------+ + + + + | 07/05/ | Telephone | Cardiology [facility] at | Benjie Singh MD | Other (Pt called. | | 2012 | | [facility] [address] | [address] | She stated that | | | | [facility] | [address] | she's taking | | | | Health and Healing, | [place] [address] | waterpills? She | | | | | [phone] | wants to know if she | | | | Floor [place], [place] | | can up the dosage?) | | | | [address] | | | | | | [phone] | | | +--------+ + + + [...]
--- OUTSIDE RECORDS SUMMARY | ~2019-09-03 | XMS | Encounter Summary ---
Demographics + + + | Address | [address] | | | [place] [address] | + + + | Home Phone | | + + + | Preferred Language | Unknown | + + + | Marital Status | | + + + | Mormonism Affiliation | VANDA | + + + | Race | White | + + + | Ethnic Group | Not or | + + + Author + + + | Author | [facility] | + + + | Organization | [facility] | + + + | Address | Unknown | + + + | Phone | Unavailable | + + + Support + + + + + | Name | Relationship | Address | Phone | + + + + + | Josue Schaeffer | ECON | [address] | | | | | [place] [address] | | + + + + + | Dariana Dowling | ECON | Unknown | | + + + + + Care Team Providers + +------+ + | Care Table Attendant Name | Role | Phone | + +------+ + PCP | Unavailable | + +------+ + Encounter Details +--------+ + + + + | Date | Type | Department | Care Team | Description | +--------+ + + + + | 05/18/ | Office | [facility] | Note, [...] as of this encounter Progress Notes Interface, Case Management Coordinator In - 12/05/2005 5:11 AM PDTCLINIC DATE: 05/19/2000 ENDOCRINOLOGY CLINIC REFERRING PHYSICIAN: Emanuel Morgan M.D. PRIMARY CARE PHYSICIAN: Michael Newby M.D. ENDOCRINE INDICATIONS: Question of hyperthyroidism. PAST MEDICAL HISTORY 1. Rheumatic heart disease. 1.1. Status post MVR, AVR, and St. Theo's valve in 1994. 1.2 Class II functional status. 1.3 Chronic warfarin therapy. 2. Hypertension. 3. Vertigo. 4. Chronic migraines. 5. Hormone replacement therapy without known osteoporosis assessment, without symptoms. MEDICATIONS: Warfarin, loratadine, fluticasone inhaler, albuterol, Serevent, Premarin 0.15 mg q.d., furosemide 20 mg q.d., and meclizine. SOCIAL HISTORY: 42 years. No recent travel. No known XRT or radiation exposures. No history of solvent or chemical exposures. FAMILY HISTORY: No rheumatoid arthritis or autoimmune disease. Question of daughter with hypothyroidism. The mother with diabetes at age 70. No one else with any thyroid disease. SUBJECTIVE: This is a 59-year-old woman referred from Cardiology Clinic for a 3-week history of an acute onset of shaking and feeling hot. She describes fairly acute onset of worsening shakes, increased lower extremity edema, difficulty focusing and blurry vision, and temperature instability with feeling warm all the time. She does not endorse any acute onset of upper respiratory symptoms, neck pain, or swelling. She has been treated multiple times for chronic sinusitis and has recently had a course of clindamycin prior to the onset of these symptoms. She indicates there may be some slight throat tightness, but no acute dysphagia. She is having a worsening dyspnea over the past 3 weeks primarily resting with exercise. She has ongoing PND and mild orthopnea which is not new for her. She denies any angina. She also indicates some question of redness of the skin and losing of hair. She is having approximately 6 loose stools a day. No blood. No abdominal tenderness. PHYSICAL EXAMINATION: VITAL SIGNS: Weight is 141 pounds; blood pressure is 110/60, right arm sitting; and pulse of 95 to 100, regular with occasional irregular beat. HEENT: No proptosis, lid lag, or gaze. ARIS. EOMI. No icterus or injection. Oropharynx is clear without petechiae or lesions. NECK: No lymphadenopathy. Thyroid is globally enlarged with a prominent isthmus. No pyramidal lobe, right side greater than left; generally smooth in superior and inferior lobes. Right superior lobe is the greatest. There are no nodules or densities felt and is nontender. LUNGS: Clear to auscultation. CARDIOVASCULAR: Regular rate and rhythm with occasional irregular extra beat, S1 equal S2, mechanical heart sound. ABDOMEN: Soft and nontender. No hepatosplenomegaly. No spiders. EXTREMITIES: Diffuse coarse resting tremor, decreases with intension, 1+ edema to mid nino. Reflexes 3+, equal, and symmetric. LABORATORY STUDIES: Random glucose 122, phosphorus 4.3, AST 46, ALT 32, and LDH 352. Total protein is 5.9 and albumin is 3.3. The remainder of electrolytes was normal. Hematocrit 33.5, MCV 85, platelets 171, and white count 6.1. No differential. INR 4.3 and total T4 is 21.5 mcg/dL. Free T4 is pending. No TSH drawn. ASSESSMENT: A 59-year-old woman with hyperthyroidism. The two primary diagnoses are most likely Graves' disease which has been going on for some time or toxic multinodular goiter. A silent thyroiditis is also possible. The toxic nodule is less likely although certainly not ruled out by her clinical exam; however, the diffusely enlarged thyroid would make this less likely. She received beta fide for approximately 1 day and had some abatement of her symptoms. Her possible positive family history and no acute exposure to iodine-containing products including amiodarone make an autoimmune thyroid process more likely. PLAN 1. Hyperthyroidism. Start atenolol 25 mg b.i.d. with careful titration and attention given to her cardiac symptoms, dyspnea, and lower extremity edema. Methimazole 30 mg q.d. to start, possible increase in 1 month's time. Recheck TFTs. Thyroid uptake scan would be best to do next week, although the patient is leaving town on Wednesday, therefore will be set up in 1 month's time at the time of their repeat TFTs. This will help facilitate final diagnosis. 2. Followup. Essentially as above and with Cardiology Clinic. Dr. Oralia Self has seen, examined, and participated in the diagnosis of this patient, and agrees with the plan. Veronika Aguayo M.D., Ph.D. Endocrinology Fellow Oralia Self M.D. [facility] / [id number] / [id number] / [id number] / [id number] cc: Emanuel Morgan M.D. Division of Cardiology [facility] Michael Newby M.D. [address] [facility]. [address] [place] [address] [id number] signed by Interface, Case Management Coordinator In at 12/05/2005 5:11 AM PDTInterf patria, Case Management Coordinator In - 12/05/2005 5:11 AM PDTCLINIC DATE: 05/19/2000 CARDIOLOGY CLINIC REASON FOR VISIT: Mrs. Schaeffer is a 60-year-old woman who comes in complaining of shaking for the last 2 weeks. MEDICAL PROBLEM LIST 1. Rheumatic heart disease. 1.1. Mitral valve commissurotomy in the past. 1.2. 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 1.3. Morphine therapy. 1.4. Functional Class II. 2. Hypertension, controlled. 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 4. Chronic migraine headaches. 5. Chronic swelling of the left arm from surgery. 6. Acute hyperthyroidism. MEDICATIONS 1. Serevent which was started about a week and a half ago for her breathing. 2. Coumadin as directed through the Anticoagulation Clinic. 3. Claritin 10 mg q.d. 4. Flonase p.r.n. 5. Albuterol inhaler p.r.n. 6. Azmacort inhaler p.r.n. 7. Premarin 0.625 mg half tablet q.d. 8. Lasix 20 mg p.r.n. 9. Meclizine 25 mg half a tablet p.r.n. 10. Prinivil 5 mg p.r.n. 11. Salicylate 5 mg p.r.n. 12. Promethazine 25 mg p.r.n. 13. Librium 5 mg p.r.n. 14. Vitamins q.d. SUBJECTIVE: I last saw Mrs. Schaeffer in September 1999 when she was really doing quite well. She called in the end of last week saying that she was having quite a bit of shaking and felt very warm and hot. She had seen a physician in the [facility] where she lives, but he did not have any etiology for the shaking. She asked if she could make an appointment to come and see me. We set this up today with some lab work, and talking to her for the past 2 weeks, she just feels anxious and nervous and shaking all over. She is a little short of breath. She had been coughing. Her legs are very weak, and she could not walk very well as she feels very unstable on her feet. She has not taken her temperature to know whether if she has been running any temperature. She has had peripheral edema. She also notes that she is hot all the time and sleeping with the windows open and a fan blowing on her while her is bitterly complaining that he is freezing. She is also having 6 to 8 stools per day. Her Coumadin requirements have been going down, and she has not had any problems with bleeding. PHYSICAL EXAMINATION: GENERAL: On exam, she is obviously shaking and tremulous. VITAL SIGNS: Weight is 104 pounds, blood pressure is 132/60, and pulse is 81, basically regular with frequent extra systoles, that would be my guess. HEENT: She does not have any tenderness over the thyroid gland. LUNGS: Clear, although, there are decreased breath sounds at both bases. CARDIAC: Jugular venous pressure seems to be about 6 to 7 cm. There is a systolic ejection murmur along the left sternal border and no diastolic murmur is heard. ABDOMEN: Nontender. The bowel sounds are clearly heard. EXTREMITIES: There is moderate edema in both her legs. She is actually very tremulous and very hyperreflexic. OBJECTIVE DATA: She had an x-ray today which shows the heart size to be moderately enlarged and she has small bilateral pleural effusions. Laboratories with a sodium of 138, potassium 3.8, BUN 19, creatinine 0.7, and glucose 122 which is mildly elevated. Her LDH is 532 which is probably elevated due to some hemolysis from her valves. Cholesterol at 85. Her T4 total is 21.5. White count is 6.1, hematocrit 33.5, platelet count 171,000, and INR is 4.3. We grew some blood cultures yesterday and no growth today. ASSESSMENT: Mrs. Schaeffer has the obvious characteristics of a marked hyperthyroidism, almost thyroid storm, which I think needs to be expeditiously evaluated and treated. PLAN: I contacted the Endocrinology Service, and they will come by and see her and help with the management. I think it might be necessary to admit her to the hospital for acute treatment. Emanuel Morgan M.D. GP / HS [id number] / [id number] / [id number] / cc: [facility] [address] [place] [address] [place] [address] [id number] signed by Interface, Case Management Coordinator In at 12/05/2005 5:11 AM PDTInterf patria, Case Management Coordinator In - 12/05/2005 5:11 AM PDTCLINIC DATE: 05/18/2000 OTOLARYNGOLOGY CLINIC HISTORY OF PRESENT ILLNESS: The patient returns. The patient has been having a lot of problems with shaking and tremors. She thought this might be due to the clindamycin that she was taking, and she stopped this 2 weeks ago; however, she continues to have significant shaking and tremors throughout the day. She also complains of feeling hot all the time. She did see a primary care physician near home who felt that this may be stress related; however, she states that she did not have any laboratory work or other studies done. She denies any diarrhea, but she is having a lot of vomiting which she attributes to postnasal drainage from her chronic sinus infection. She is not actually taking her temperature and is not sure if she has been febrile. She has been having some problems stabilizing her prothrombin time and states that in the last few times it has been checked, it has been high, and her dosage has been cut. From the standpoint of her sinuses, she still does have intermittent drainage down the back of her throat and some thick mucus which she swallows. PROCEDURE NOTE: Diagnostic nasal endoscopy. ANESTHESIA: Phenylephrine 1%, lidocaine 4% topical. DESCRIPTION OF PROCEDURE: The scope was passed into the right nasal passage. The maxillary sinus is clear with the exception of a tiny bit of crust along the edge. A curved suction tip catheter was passed into the maxillary sinus, and there were no retained secretions. The ethmoid cavity appears clear with no mucus secretions or purulence. The scope was then passed into the left nasal passage. There is some thick mucus, a little bit of crusting caught up within sphenoid sinus. This was removed using a straight Newton tip suction. The ethmoid cavity is clear, and the maxillary antrostomy is clear. The scope was then removed. The patient tolerated the procedure well. PHYSICAL EXAMINATION: GENERAL: The patient is visibly shaking and tremors. VITAL SIGNS: Her pulse is 90 and regular. ASSESSMENT AND PLAN 1. History of chronic sinusitis. Her sinuses are the best that I have seen them over the past year. She still does have a tendency to have some mucus secretion which is caught up within the sphenoid sinus and a little bit of crusting within the right maxillary sinus. In the past visit, she has had a lot of thick debris which has been extremely difficult to debride in the clinic. Due to the chronic nature of her sinus problems and in addition her history of 2 artificial valves, she may be a candidate for some revision sinus surgery in order to promote better mucociliary clearance of the sinuses on her next visit with me which is scheduled for next month. I would like to obtain a repeat CT scan of the sinuses. 2. The patient has an appointment tomorrow with her pain coordinator, Dr. Emanuel Morgan, and I contacted Dr. Morgan, and we discussed some laboratory test to draw to hopefully rule out possible causes of her shaking including thyroid disorders, septicemia, and electrolyte imbalance, and I will send her this afternoon to obtain a metabolic panel and thyroid function tests including a TSH and T4, a CBC, and 2 blood cultures. Mayra Vega M.D. LES / [id number] / [id number] / [id number] / [id number] signed by Interface, Case Management Coordinator In at 12/05/2005 5:11 AM PDTdocume nted in this encounter Plan of Treatment Not on filedocumented as of this encounter Visit Diagnoses Not on filedocumented in this encounter"
--- OUTSIDE RECORDS SUMMARY | ~2019-09-03 | XMS | Encounter Summary ---
Demographics + + + | Address | [address] | | | [place] [address] | + + + | Home Phone | | + + + | Preferred Language | Unknown | + + + | Marital Status | | + + + | Hoahaoism Affiliation | VANDA | + + + | Race | White | + + + | Ethnic Group | Not or | + + + Author + + + | Author | [facility] | + + + | Organization | [facility] | + + + | Address | Unknown | + + + | Phone | Unavailable | + + + Support + + + + + | Name | Relationship | Address | Phone | + + + + + | Josue Schaeffer | ECON | [address] | | | | | [place] [address] | | + + + + + | Dariana Dowling | ECON | Unknown | | + + + + + Care Team Providers + +------+ + | Care It Desktop Support Technician Name | Role | Phone | + +------+ + PCP | Unavailable | + +------+ + Encounter Details +--------+ + + + + | Date | Type | Department | Care Team | Description | +--------+ + + + + | 04/12/ | Office | General Internal | Note, Outpatient | Progress Note | | 1995 | Visit-Trans | Medicine [address] | Clinic | | | | [address] | [address] | | | | | | Mailcode: [id number] | | | | | | Outpatient Clinic | | | | | | [facility], [address] | | | | | | [place], [place] | | | | | | [address] | | | | | | [phone] | | | +--------+ + + + [...] as of this encounter Progress Notes Interface, Photogrammetric Technician In - 05/09/2006 5:10 AM PDT CLINIC DATE: 04/13/95 OTOLARYNGOLOGY CLINIC Ms. Schaeffer is seen for a preoperative visit today. She was seen a week ago and arrangements have been made to stop her Coumadin which she stopped three days ago and also to put her on amoxicillin for prophylaxis of SFE. She is to be admitted to the hospital today for control of her clotting studies and plans are to do bilateral antro-meatal ethmoidectomies in the anterior meatal windows tomorrow for her recurrent sinusitis and nasal polyps. Dr. Rao is aware of this and will see her in the hospital and we will also contact him. A PAR/S with the patient regarding the procedure who agrees. Her was also in attendance. Maxwell Garcia M.D. Professor, Otolaryngology Head and Neck Surgery MALIA/ana C: 04/24/95 dlr documented in this encounter Plan of Treatment Not on filedocumented as of this encounter Visit Diagnoses Not on filedocumented in this encounter"
--- OUTSIDE RECORDS SUMMARY | ~2019-09-03 | XMS | Encounter Summary ---
Demographics + + + | Address | [address] | | | [place] [address] | + + + | Home Phone [...] Josue Schaeffer | ECON | [address] | | | | | [place] [address] | | + + + + + | Dariana Dowling | ECON | Unknown | | + + + + + Care Team Providers + +------+ + | Care Two Way Radio Installer Name | Role | Phone | + +------+ + PCP | Unavailable | + +------+ + Encounter Details +--------+ + + + + | Date | Type | Department | Care Team | Description | +--------+ + + + + | 12/02/ | Abstract | Cardiology - | Emanuel Morgan, | | | 2004 | | General [address] | | | | | | [address] | | | | | | Mailcode: [id number] | | | | | | [address] | | | | | | [address] [place], | | | | | | [place] [address] | | | | | | [phone] | | | +--------+ + + + [...]
--- OUTSIDE RECORDS SUMMARY | ~2019-09-03 | XMS | Encounter Summary ---
Demographics + + + | Address | [address] | | | [place] [address] | + + + | Home Phone [...] Josue Schaeffer | ECON | [address] | | | | | [place] [address] | | + + + + + | Dariana Dowling | ECON | Unknown | | + + + + + Care Team Providers + +------+ + | Care Horse Rancher Name | Role | Phone | + +------+ + | Josiah Walls MD | PCP | | + +------+ + Encounter Details +--------+ + + + + | Date | Type | Department | Care Team | Description | +--------+ + + + + | 05/19/ | Results | Registration [id number] | | | | 1996 | Only | [address] | | | | | | [address] Mailcode: [id number] | | | | | | [place], [place] | | | | | | [address] | | | | | | [phone] | | | +--------+ + + + [...] | COAGULATION TESTS 2 | Routin | 05/20/1995 | | Results for this | | | e | 1:29 PM | | procedure are in the | | | | PDT | | results section. | + +--------+ + + + documented in this encounter Results COAGULATION TESTS 2 (05/20/1995 1:29 PM PDT) + + + + + + | Component | Value | Ref Range | Performed | Pathologist | | | | | At | Signature | + + + + + + | PROTHROMBIN | 20.9 (H) | SECONDS | | | | TIME | | | | | + + + + + + | PROTIME | 1.8 | SECONDS | | | | RATIO | | | | | + + + + + + | PROTHROMBIN | 3.21 | INR | | | | INR [...] | + + + + + | [facility] | [address] | [place] [address] | | | PATHOLOGY | [address] | | | + + + + + documented in this encounter Visit Diagnoses Not on filedocumented in this encounter"
--- OUTSIDE RECORDS SUMMARY | ~2019-09-03 | XMS | Encounter Summary ---
Demographics + + + | Address | [address] | | | [place] [address] | + + + | Home Phone [...] Josue Schaeffer | ECON | [address] | | | | | [place] [address] | | + + + + + | Dariana Dowling | ECON | Unknown | | + + + + + Care Team Providers + +------+ + | Care Tutoring Manager Name | Role | Phone | + +------+ + | Josiah Walls MD | PCP | | + +------+ + Reason for Visit + + + | Reason | Comments | + + + | Lab Results | | + + + Encounter Details +--------+ + + + + | Date | Type | Department | Care Team | Description | +--------+ + + + + | 12/27/ | Documentati | [facility] at | Emanuel Morgan, | Lab Results | | 2009 | on | [address] | | | | | | [facility] | | | | | | [facility] and Healing, | | | | | | Building | | | | | | Floor [place], [place] | | | | | | [address] | | | | | | [phone] | | | +--------+ + + + [...] + + | INR | Routin | 12/26/2009 | | Results for this | | | e | | | procedure are in the | | | | | | results section. | + +--------+ + + + | CBC, WITH | Routin | 12/26/2009 | | Results for this | | DIFFERENTIAL | e | | | procedure are in the | | | | | | results section. | + +--------+ + + + | C-REACTIVE PROTEIN | Routin | 12/26/2009 | | Results for this | | | e | | | procedure are in the | | | | | | results section. | + +--------+ + + + | SEDIMENTATION RATE | Routin | 12/26/2009 | | Results for this | | | e | | | procedure are in the | | | | | | results section. | + +--------+ + + + | INR | Routin | 11/26/2009 | | Results for this | | | e | | | procedure are in the | | | | | | results section. | + +--------+ + + + | INR | Routin | 11/12/2009 | | Results for this | | | e | | | procedure are in the | | | | | | results section. | + +--------+ + + + documented in this encounter Results C-REACT PRTN (FOR INFLAMMATION) (12/26/2009) + + + + + + | Component | Value | Ref Range | Performed | Pathologist | | | | | At | Signature | + + + + + + | C-REACTIVE | 18.6 (A) | 0.0 - 1.0 mg/dl | NON [facility] | | | PROTEIN | | | LAB | | + + + + + + + + | Specimen | + + | Blood - Blood | + + + +---------+ + + | Performing | Address | City/State/Zipcode | Phone Number | | Organization | | | | + +---------+ + + | NON [facility] | | | | + +---------+ + + INR (12/26/2009) + + + + + + | Component | Value | Ref Range | Performed | Pathologist | | | | | At | Signature | + + + + + + | INR | 9.12 (A) | 0.98 - 1.08 INR | [...] | | | + +---------+ + + SEDIMENTATION RATE (12/26/2009) + +--------+ + + + | Component | Value | Ref Range | Performed | Pathologist | | | | | At | Signature | + +--------+ + + + | SEDIMENTATI | 81 (A) | 0 - 30 mm/hr | NON [facility] | | | ON RATE | | | LAB | | + +--------+ + + + + + | Specimen | + + | Blood - Blood | + + + +---------+ + + | Performing | Address | City/State/Zipcode | Phone Number | | Organization | | | | + +---------+ + + | NON [facility] | | | | + +---------+ + + CBC, WITH DIFFERENTIAL (12/26/2009) + + + + + + | Component | Value | Ref Range | Performed | Pathologist | | | | | At | Signature | + + + + + + | WHITE CELL | 13.1 (A) | 4.8 - 10.8 K/cu | NON [facility] | | | COUNT | | mm | LAB | | + + + + + + | RED CELL | 3.70 (A) | 3.8 - 5.0 M/cu | NON [facility] | | | COUNT | | mm | LAB | | + + + + + + | HEMOGLOBIN | 11.2 (A) | 11.5 - 15.5 | NON [facility] | | | | | g/dL | LAB | | + + + + + + | HEMATOCRIT | 33.3 (A) | 37 - 47 % | NON [facility] | | | | | | LAB | | + + + + + + | MCV | 89.8 | fL | NON [facility] | | | | | | LAB | | + + + + + + | MCH | 30.2 | pg | NON [facility] | | | | | | LAB | | + + + + + + | MCHC | 33.6 | g/dL | NON [facility] | | | | | | LAB | | + + + + + + | PLATELET | 283 | K/cu mm | NON [facility] | | | COUNT | | | LAB | | + + + + + + | NEUTROPHIL | 86.7 (A) | 42.2 - 75.2 % | NON [facility] | | | % | | | LAB | | + + + + + + | LYMPHOCYTE | 6.0 (A) | 20.5 - 51.1 % | [facility] | | | % | | | LAB | | + + + + + + | MONOCYTE % | 7.0 | % | NON [facility] | | | | | | LAB | | + + + + + + | EOS % | 0.3 | % | NON [facility] | | | | | | LAB | | + + + + + + | BASO % | 0.0 | % | NON [facility] | | | | | | LAB | | + + + + + + | RDW | 13.8 | % | NON [facility] | | | | | | LAB | | + + + + + + | MPV | 8.4 | fL | NON [facility] | | | | | | LAB | | + + + + + + | NEUTROPHIL | 11.3 (A) | 1.4 - 6.2 K/cu | [facility] | | | # | | mm | LAB | | + + + + + + | LYMPHOCYTE | 0.8 (A) | 1.2 - 3.4 K/cu | [facility] | | | # | | mm | LAB | | + + + + + + | MONOCYTE # | 0.9 (A) | 0.1 - 0.6 K/cu | [facility] | | | | | mm | LAB | | + + + + + + | EOS # | 0.0 | K/cu mm | [facility] | | | | | | LAB | | + + + + + + | BASO # | 0.0 | | [facility] | | | | [...] | | + +---------+ + + INR (11/26/2009) + + + + + + | Component | Value | Ref Range | Performed | Pathologist | | | | | At | Signature | + + + + + + | INR | 4.24 (A) | 0.98 - 1.08 INR | [...] | | + +---------+ + + INR (11/12/2009) + + + + + + | Component | Value | Ref Range | Performed | Pathologist | | | | | At | Signature | + + + + + + | INR | 1.95 (A) | 0.98 - 1.08 INR | [...]
--- OUTSIDE RECORDS SUMMARY | ~2019-09-03 | XMS | Encounter Summary ---
Demographics + + + | Address | [address] | | | [place] [address] | + + + | Home Phone | | + + + | Preferred Language | Unknown | + + + | Marital Status | | + + + | Jain Affiliation | VANDA | + + + [...] Josue Schaeffer | ECON | [address] | | | | | [place] [address] | | + + + + + | Dariana Dowling | ECON | Unknown | | + + + + + Care Team Providers + +------+ + | Care Bookkeepers Supervisor Name | Role | Phone | + +------+ + PCP | Unavailable | + +------+ + Encounter Details +--------+ + + + + | Date | Type | Department | Care Team | Description | +--------+ + + + + | 12/10/ | Procedure - | [facility] | Record, Operation | Operative Report | | 1994 | | Center at [facility] [address] | | | | | Transcribed | [address] [facility] | | | | | | for Health and | | | | | | [facility] [address] | | | | | | [place], [place] | | | | | | [address] | | | | | | [phone] | | | +--------+ + + + [...] | + +--------+ + + + | OPERATION RECORD | | 12/10/1994 | | Results for this | | | | 12:00 AM | | procedure are in the | | | | PST | | results section. | + +--------+ + + + documented in this encounter Results OPERATION RECORD (12/10/1994 12:00 AM PST) + + | Procedure Note | + + | 12/10/1994 12:00 AM [facility] | | [facility] | | [address] [place] [address] | | [facility] | | | | | | | | OPERATION RECORD | | | | Med Rec No.: [id number] Date: 12/10/94 | | | | Name: Maria Alejandra Schaeffer | | | | | | ATTENDING SURGEON: Ihsan Carias M.D. | | Professor, Surgery | | Chief, Division of Cardiopulmonary Surgery | | | | MANAGER TRAINING(S): Mindi hTacker M.D. | | Instructor, Cardiopulmonary Surgery | | | | Christopher Kate M.D. | | Resident, Cardiovascular Surgery | | | | POSTOPERATIVE DIAGNOSIS(ES): Severe mitral and aortic valvular disease. | | | | OPERATION(S) PERFORMED: 1. Aortic valve replacement with 19 mm. HP | | St. Theo aortic valve. | | 2. Mitral valve replacement with [address] | | Theo mitral valve. | | | | ANESTHESIA: General anesthesia by Drs. Ferreira and | | Noelle. | | | | SPECIMEN(S) REMOVED: See below. | | | | TECHNIQUE: Antegrade cold cardioplegia at 22 degrees. | | | | TOTAL CARDIOPULMONARY | | BYPASS TIME: 252 minutes. | | | | TOTAL AORTIC | | CROSS CLAMP TIME: 207 minutes. | | | | COMPLICATIONS: None. | | | | INDICATIONS: The patient is a 54-year-old female with a | | history of rheumatic heart disease as a | | child. She has been followed | | for her aortic and mitral valve disease. 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 She was most recently | | measured to have significant gradients across both valves. She has had no | | clinical signs of tricuspid regurgitation. She was referred for aortic and | | mitral valve replacement. | | | | FINDINGS: | | | | 1. Her aortic valve was tricuspid in nature. The leaflets were thickened | | and the effective orifice through the leaflets was measured to be 13 mm. | | | | 2. The mitral valve leaflets were thickened, the edges were rolled, and the | | subvalvular apparatus was grossly abnormal. | | | | 3. There were dense adhesions in the pericardium which were taken down | | sharply. Aprotinin was used throughout the case. | | | | | | PROCEDURE: | | | | The patient was taken to the operating room and placed on the operating | | table in a supine position. General anesthesia was induced. Central venous | | and radial artery monitoring lines were placed by the Anesthesiologists. | | The patient was then positioned, prepped and draped in a standard fashion. | | | | A sternal incision was made through her previous incision. 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 | | | | The dissection was taken down through the subcutaneous tissues down to the | | level of the sternum. The sternum was then scored with Bovie cautery. The | | sternum had been closed previously with heavy Tevdek sutures. | | | | The sternum was cut using a Exeter saw. The posterior adhesions were taken | | down with Bovie cautery. She had dense adhesions throughout her | | pericardium. | | | | Starting dissection at the base of the heart, it was carried along and | | around to the right atrium which was dissected free of the surrounding | | tissues. The superior vena cava was also dissected out, and then the aorta | | was identified and dissected free of the surrounding tissues. The | | innominate vein was severely scarred and thin, and quite a bit of tension | | was on it upon opening the chest. | | | | Through the innominate vein could be seen the introducer which had been | | placed into the left neck, through which the [place]-Luis Antonio had been floated. | | This area was reinforced with 6-0 suture. | | | | Once dissecting the heart free, a pursestring of 3-0 Fishers-Lior was placed in | | the ascending aorta. An aortotomy was made; the aortic cannula was | | introduced through this, de-aired, and connected to the bypass circuit. | | This was all done after giving Heparin directly into the right atrial | | appendage. | | | | | | Once aortic cannulation was done, double venous cannulation was done by | | placing cannulas through pursestrings on the right atrial appendage. These | | were directed into the inferior and superior vena cavae. The cavae were | | gotten around with umbilical tapes and secured with tourniquets. | | | | Once this was done, the patient was placed on cardiopulmonary bypass and | | cooled to 26 degrees. The rest of the dissection of the left heart was then | | done. | | | | Once the heart reached temperature it fibrillated spontaneously. The aorta | | was cross clamped, the aortic route was opened, and cardioplegia was given | | directly into the left and right coronary ostia. Cardioplegia was given | | every 30 minutes or whenever the myocardial temperature jocelynn above 18 | | degrees. A myocardial temperature probe was placed in the left ventricular | | apex. Cardioplegia was given directly into the left coronary ostia. 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 Cardioplegia was given in both the left and right | | ostia without difficulty. There was good diastolic arrest. | | | | Once this was done the aortic valve was thoroughly inspected. The leaflets | | were thickened and sclerotic, consistent with rheumatic heart disease. The | | effective orifice through the leaflets was 13 mm. The aortic valve leaflets | | were resected and the annulus was sized to a [address] Theo aortic | | valve. | | | | Attention was directed to the patient's left atrium. A left atrial incision | | was made from the patient's right side. The atrium was further exposed and | | the mitral valve exposed and identified. The leaflets were thickened and | | the edges were rolled. The subvalvular apparatus was grossly abnormal. The | | anterior leaflet was excised, leaving a several millimeter rim of valvular | | tissue. | | | | The mitral annulus was sized to a [address] Theo mitral valve. Simple | | stitches were taken along the circumference of the mitral annulus, these | | were passed through the valve sewing ring, the valve lowered in position, | | and the sutures tied down. | | | | Sutures were placed in the aortic annulus in a simple fashion. These were | | then sewn through the sewing ring, the aortic valve lowered in position, and | | the sutures tied down. | | | | Rewarming was begun. The atriotomy was closed with a running 3-0 Prolene | | suture, and the aortotomy was closed with a running 4-0 Prolene suture. | | | | De-airing maneuvers were next done. A Gonzalez needle was placed in the | | ascending aorta and the ascending aorta decompressed. Prior to closing the | | right atrium, a Grant catheter was placed across the mitral valve and the | | valve left incompetent. This aided in allowing the left heart to stay fully | | decompressed. | | | | Once there was adequate coarse fibrillation, the heart was defibrillated | | with a single joule shock of 20 joules. Additional volume resuscitation was | | given. The patient was gradually weaned from cardiopulmonary bypass. The | | bypass was stopped, the venous cannula removed, and the pursestring sutures | | tied down. Additional volume resuscitation was given through the aortic | | cannula. | | | | Once the Aprotinin was in the aortic cannula was removed, and the | | pursestring sutures tied down and oversewn with additional Fishers-Lior suture. | | | | It should be noted that during the course of the operation, the right chest | | was emptied of a significant amount of blood. Further inspection revealed | | that a Cordis catheter had been placed in the patient's right neck and this | | had extended into the right pleural cavity. There was approximately 2 | | liters of blood in the chest, which was removed. The site through which the | | catheter entered the chest wall was oversewn with pledgeted Prolene sutures | | and no bleeding was noted. | | | | Chest tubes were placed into the anterior mediastinum, brought out | | inferiorly, and secured to the skin with a nylon stitch. Pacing wires were | | placed on the anterior epicardium, brought out inferiorly, and secured to | | the skin with a nylon stitch. | | | | Once hemostasis was adequate and hemodynamics were good, the sternum was | | reapproximated with heavy sternal wires. The subcutaneous and deep fascial | | layers of the sternum were reapproximated with Vicryl sutures. The skin was | | closed with running subcuticular Vicryl sutures. | | | | Sterile dressings were applied and the patient was taken to the Cardiac | | Recovery Room in stable condition. | | | | | | | | | | Christopher Kate M.D. | | Resident, | | Cardiovascular Surgery | | Ihsan Carias M.D. | | Professor, Surgery | | Chief, Division of Cardiopulmonary Surgery | | | | /alta | | | | P | | | | cc: CARTER MCGRATH MD | | [id number] | | [place] [id number] | | | + + documented in this encounter Visit Diagnoses Not on filedocumented in this encounter"
--- OUTSIDE RECORDS SUMMARY | ~2019-09-03 | XMS | Encounter Summary ---
Demographics + + + | Address | [address] | | | [place] [address] | + + + | Home Phone [...] Josue Schaeffer | ECON | [address] | | | | | [place] [address] | | + + + + + | Dariana Dowling | ECON | Unknown | | + + + + + Care Team Providers + +------+ + | Care Web Operations Lead Name | Role | Phone | + +------+ + | Enoc Lee NP | PCP | | + +------+ + Reason for Visit + + + | Reason | Comments | + + + | Drug reaction | | + + + Encounter Details +--------+ + + + + | Date | Type | Department | Care Team | Description | +--------+ + + + + | 06/17/ | Telephone | Cardiology [facility] at | Benjie Singh MD | Drug reaction | | 2012 | | [facility] [address] | [address] | | | | | [facility] | [place] [address] | | | | | Health and Healing, | [place] [address] | | | | | | [phone] | | | | | Floor [place], [place] | | | | | | [address] | | | | | | [phone] | | | +--------+ + + + [...] + + documented as of this encounter Patient Instructions Patient Instructions Francisco Kincaid, Benjie Flannery - 06/18/2012 1:52 PM PDTPer my note I did not incr ease her lisinopril. I do not know how that occurred. I did prescribe bumex because she reported problems with response to furosemide. OK to go back. Can you check with her about the lisinopril please? j documented in this encounter Plan of Treatment Not on filedocumented as of this encounter Visit Diagnoses Not on filedocumented in this encounter"
--- OUTSIDE RECORDS SUMMARY | ~2019-09-03 | XMS | Encounter Summary ---
Demographics + + + | Address | [address] | | | [place] [address] | + + + | Home Phone | | + + + | Preferred Language | Unknown | + + + | Marital Status | Single | + + + | Protestant Affiliation | [id number] | + + + | Race | Unknown | + + + | Ethnic Group | Unknown | + + + Author + + + | Author | [facility] | | | and [place] | + + + | Organization | [facility] | | | and [place] [...] Team Providers + +------+ + | Care Apprentice Funeral Director Name | Role | Phone | + +------+ + | Ramesh You DO | PCP | | + +------+ + Reason for Visit + +--------+ + | Reason | Onset | Comments | | | Date | | + +--------+ + | Numbness | 08/01/ | | | | 2018 | | + +--------+ + Encounter Details +--------+ + + + + | Date | Type | Department | Care Team | Description | +--------+ + + + + | 08/01/ | Telephone | [facility] | Tessy Elmore, | Numbness | | 2019 | | CARDIOLOGY [address] | MD [address] [place] | | | | | [place], | [place], | | | | | [place] [address] | [place] [address] | | | | | [phone] | [phone] | | | | | | | [...] + + documented as of this encounter Miscellaneous Notes Telephone Encounter - Mari Guzman RN - 08/01/2018 3:58 PM PDTPatient called reporting s he has numbness in her fingertips and is tired and wants her pacemaker rate put back the way it was. Reviewed interrogation and we changed the detection rate, not the lower rate limit. This should not affect patients heart rate. She is advised to go in to ED to be seen for ne w onset numbness. Electronically signed by: Mari Guzman RN 08/01/2018 16:00Electronically s igned by Mari Guzman RN at 08/01/2018 4:00 PM PDTdocumented in this encounter Plan of Treatment Not on filedocumented as of this encounter Visit Diagnoses Not on filedocumented in this encounter"
--- OUTSIDE RECORDS SUMMARY | ~2019-09-03 | XMS | Encounter Summary ---
Demographics + + + | Address | [address] | | | [place] [address] | + + + | Home Phone [...] Josue Schaeffer | ECON | [address] | | | | | [place] [address] | | + + + + + | Dariana Dowling | ECON | Unknown | | + + + + + Care Team Providers + +------+ + | Care Assistant Manager Quality Management Name | Role | Phone | + [...] | +--------+ + + + + | 07/26/ | Telephone | Cardiology [facility] at | Emanuel Morgan, | Appointment | | 2008 | | [facility] [address] | | | | | | [facility] | | | | | | Health and Healing, | | | | | | Building | | | | | | Floor [place], [place] | | | | | | [address] | | | | | | [phone] | | | +--------+ + + + [...]
--- OUTSIDE RECORDS SUMMARY | ~2019-09-03 | XMS | Encounter Summary ---
Demographics + + + | Address | [address] | | | [place] [address] | + + + | Home Phone [...] Josue Schaeffer | ECON | [address] | | | | | [place] [address] | | + + + + + | Dariana Dowling | ECON | Unknown | | + + + + + Care Team Providers + +------+ + | Care Racket Stringer Name | Role | Phone | + +------+ + | Enoc Lee NP | PCP | | + +------+ + Reason for Visit +--------+ + | Reason | Comments | +--------+ + | Other | | +--------+ + Encounter Details +--------+ + + + + | Date | Type | Department | Care Team | Description | +--------+ + + + + | 06/28/ | Telephone | Cardiology [facility] at | Benjie Singh MD | Other | | 2012 | | [facility] [address] | [address] | | | | | [facility] for | [address] | | | | | Health and Healing, | [place] [address] | | | | | | [phone] | | | | | Floor [place], [place] | | | | | | [address] | | | | | | [phone] | | | +--------+ + + + [...]
--- OUTSIDE RECORDS SUMMARY | ~2019-09-03 | XMS | Encounter Summary ---
Demographics + + + | Address | [address] | | | [place] [address] | + + + | Home Phone | | + + + | Preferred Language | Unknown | + + + | Marital Status | | + + + | Jew Affiliation | VANDA | + + + | Race | White | + + + | Ethnic Group | Not or | + + + Author + + + | Author | [facility] | + + + | Organization | [facility] | + + + | Address | Unknown | + + + | Phone | Unavailable | + + + Support + + + + + | Name | Relationship | Address | Phone | + + + + + | Josue Schaeffer | ECON | [address] | | | | | [place] [address] | | + + + + + | Dariana Dowling | ECON | Unknown | | + + + + + Care Team Providers + +------+ + | Care Coke Loader Name | Role | Phone | + +------+ + | Josiah Walls MD | PCP | | + +------+ + Encounter Details +--------+ + + + + | Date | Type | Department | Care Team | Description | +--------+ + + + + | 11/01/ | Telephone | Cardiology | Mayra Ivy, | | | 2009 | | Arrhythmia at [facility] | GIS DATABASE ADMINISTRATOR | | | | | [address] | | | | | | [facility] | | | | | | and [place], | | | | | | [facility] | | | | | | Floor [place], [place] | | | | | | [address] | | | | | | [phone] | | | +--------+ + + + [...]
--- OUTSIDE RECORDS SUMMARY | ~2019-09-03 | XMS | Encounter Summary ---
Demographics + + + | Address | [address] | | | [place] [address] | + + + | Home Phone [...] + + + | Author | [facility] | + + + | Organization | [facility] | + + + | Address | Unknown | + + + | Phone | Unavailable | + + + Support + + + + + | Name | Relationship | Address | Phone | + + + + + | Josue Schaeffer | ECON | [address] | | | | | [place] [address] | | + + + + + | Dariana Dowling | ECON | Unknown | | + + + + + Care Team Providers + +------+ + | Care Furnace Checker Name | Role | Phone | + [...] Emanuel | | | | | | [facility] | [address] | | | | | | [place] | [place] | | | | | | [facility] | [place], [place] | | | | | | [address] | [address] | | | | | | [place] | | | | | | | [place] | | | | | | | [place] [address] | | | | | | | Phone: | | | | | | | [phone] | | | | | | | Fax: | | | | | | | [phone] | | +--------+--------+ + + + + Encounter Details +--------+---------+ + + + | Date | Type | Department | Care Team | Description | +--------+---------+ + + + | 08/08/ | Office | Cardiology [facility] at | Emanuel Morgan, | Mitral valve | | 2008 | Visit | [facility] [address] | MD | disorder 424.0; | | | | [facility] | | Aortic valve | | | | [facility] and Healing, | | disorder 424.1 | | | | Building | | | | | | Floor [place], [place] | | | | | | [address] | | | | | | [phone] | | | +--------+---------+ + + + [...] + + + | Blood Pressure | 120/82 | 08/08/2008 10:52 AM | | | | | PDT | | + + + + + | Pulse | 64 | 08/08/2008 10:52 AM | | | | | PDT | | + + + + + | Temperature | 35.7 C (96.3 F) | 08/08/2008 10:52 AM | | | | | PDT | | + + + + + | Respiratory Rate | - | - | | + + + + + | Oxygen Saturation | 98% | 08/08/2008 10:52 AM | | | | | PDT | | + + + + + | Inhaled Oxygen | - | - | | | Concentration | | | | + + + + + | Weight | 61.4 kg (135 lb 4.8 | 08/08/2008 10:52 AM | | | | oz) | PDT | | + + + + + | Height | 163.8 cm (5' 4.5") | 08/08/2008 10:52 AM | | | | | PDT | | + + + + + | Body Mass Index | 22.87 | 08/08/2008 10:52 AM | | | | | PDT | | + + + + + documented in this encounter Patient Instructions Patient Instructions Emanuel Morgan MD - 08/08/2008 11:21 AM PDT1. General Information. Physician Information: Emanuel Morgan M.D. Division of Cardiovascular Medicine [place] [address] Email: [email or web address] Web Site: [email or web address] Office: [phone] After hours: [phone] and ask to speak to the physician taking calls for cardiology. Appointments: [phone] Nurse (for questions, requests, or to provide information): Malka Rosado, RN: [phone]. If your call is long distance, dial the toll-free number of . This will conn ect you to an [facility] shell press operator who can connect you to the number or person that you want. 2. Appointment in 6 months. documented in this encounter Progress Notes Moni Joe - 08/09/2008 2:06 PM PDTAddended by: MONI JOE on: 08/09/2008 2:06 PM Modules accepted: Emanuel Mcgowan MD - 08/09/2008 10:16 AM PDT CARDIOLOGY RETURN VISIT Maria Alejandra Schaeffer is a 67 y.o. female who returns for the evaluation of rheumatic heart diseas e. Referring Provider/PCP: Josiah Walls Cardiac Problem list/risk factors: 1. Rheumatic heart [...] and/or fibromyalgia. Current outpatient prescriptions Medication Sig ADVAIR DISKUS 250-50 mcg/Dose Inhalation Disk with Device 1 puff in the morning and 1 p uff at night CALCIUM + D OR (1200 mg calcium and 500mg vitamin D) 1 tablet daily COD LIVER OIL OR 1 capsule daily Fluticasone Propionate (FLONASE) 50 mcg/Actuation Nasal Aerosol, [place] 2 sprays in am a nd pm Garlic 1,000 mg Oral Capsule 2 capsules daily guaifenesin LA (MUCINEX) 600 mg Oral Tablet Sustained Release Take 600 mg by mouth two times daily. LASIX 20 MG TAB take 1 tablet (20mg) by oral route once daily Lecithin 1,200 mg Oral Tablet, Chewable once daily Levothyroxine Sodium 25 mcg Oral Tablet take 1 tab in morning lisinopril 5 mg Oral Tablet Take 1 Tab by mouth once daily. Lisinopril 5 mg Oral Tablet once daily in morning MECLIZINE OR (10 mg tablet) 1/2 tablet daily POTASSIUM CHLORIDE SR 10 MEQ CAP take 1 tab daily with food salsalate 500 mg Oral Tablet 1 tablet daily trimethoprim-sulfamethoxazole (BACTRIM DS) 160-800 mg Oral Tablet Take 1 Tab by mouth t wo times daily. VITAMIN B COMPLEX OR 1200 mg daily [...] tape and Codeine Subjective: Maria Alejandra Ureña Maksim has done well since I last saw her in Nov 2007. Her BP is controlled. She remains active doing her house work, shopping and walking. Her edema has been less of an is shara. She take lasix 20 mg tables, 2 tablets EVERY OTHER DAY. This works better for her ceasar n a daily dose of lasix. She denies chest discomfort, palpitations, or syncope. She has no t had any issues related to her warfarin. Dr. Walls has adjusted her thyroid medication recently. Her migraines are less frequen t than in the past and not as debilitating. Her activity is mostly limited by the joint donald n and myalgias she has. Review of systems: Please see HPI and PMHx. Comprehensive review of systems otherwise neg ative by interview and detailed patient questionnaire. Cardiac Risks: Age and Hypertension Exercise Tolerance: Average Physical Exam: Vitals: BP 120/82 | Pulse 64 | Temp(Src) 35.7 C (96.3 F) (Oral) | Ht 1.638 m (5' 4.5") | Wt 61.372 kg (135 lb 4.8 oz) | SpO2 98% GENERAL: Well appearing, no acute distress. HEENT: WNL LUNGS: Clear to auscultation. CV: Estimated JVP is <8 cm. Carotid upstrokes are normal; No bruits. PMI is in the 5th IC S at MCL. Mechanical heart sounds are present with a 2/6 FERNANDO at the base. No rubs or azevedo ps. ABDOMEN: No tenderness, active bowel sounds. No hepatic or splenic enlargement. EXTREMITIES: Pulses are +2 symmetrical. No edema. (She took lasix yesterday) SKIN: No cyanosis. Labs: Lab Results Lab Test Name Results Date/Time WBC 6.1 11/16/07 HB 12.8 11/16/07 HCT 37.6 11/16/07 PLT 189 11/16/07 MCV 90.5 11/16/07 RDW 13.9 11/16/07 NA 139 11/16/07 K 3.9 11/16/07 CL 107 11/16/07 BICARB 27 11/16/07 BUN 13 11/16/07 CR 0.89 11/16/07 GLU 75 11/16/07 CA 9.4 11/16/07 TSH 5.60 11/16/07 Assessment: Rheumatic heart disease with normal EF and acceptable hemodynamics of the valves. Her exer cise capacity is limited by the arthritis and fibromyalgia rather than her heart. BP contro lled by her measurements at home and also here. Plan: 1. Appointment in 6 months with an echo. documented in this en counter Plan of Treatment Not on filedocumented as of this encounter Visit Diagnoses + + | Diagnosis | + + | Mitral valve disorder 424.0 Mitral valve disorders | + + | Aortic valve disorder 424.1 Aortic valve disorders | + + documented in this encounter
--- OUTSIDE RECORDS SUMMARY | ~2019-09-03 | XMS | Encounter Summary ---
Demographics + + + | Address | [address] | | | [place] [address] | + + + | Home Phone | | + + + | Preferred Language | Unknown | + + + | Marital Status | | + + + | Nondenominational Affiliation | VANDA | + + + [...] | | | | | [place] [address] | | + + + + + | Dariana Dowling | ECON | Unknown | | + + + + + Care Team Providers + +------+ + | Care Industrial Safety And Health Technician Name | Role | Phone | + +------+ + PCP | Unavailable | + +------+ + Encounter Details +--------+ + + + + | Date | Type | Department | Care Team | Description | +--------+ + + + + | 11/07/ | Office | | Note, Outpatient | Progress Note | | 2002 | Visit-Trans | | Clinic | | [...] as of this encounter Progress Notes Interface, Building Rental Manager In - 07/23/2005 3:07 AM PDTClinic Date: 11/07/2002 Clinic: Otolaryngology History of Present Illness: The patient returns today. Overall, she states she has been feeling quite well and has had very little nasal discharge or sensation of crusting. She does have a little bit of soreness within the nostrils bilaterally which she has noticed over the last couple of weeks. Procedure Note: Diagnostic nasal endoscopy. Anesthesia: Lidocaine 4% topical. Description of Procedure: A 4-mm 30-degree nasal endoscope was passed through the right nasal passage. There was a little bit of drying anteriorly within the nasal cavity, but the mucosa appeared otherwise healthy. The maxillary antrostomy was widely patent. The ethmoid cavity was clear with no evidence of purulent secretions or thick discharge. The scope was passed through the left nasal passage. There was a small area dry along the nasal septum anteriorly. The ethmoid cavity appeared clear. There was no evidence of rhinolith or fungus ball. The maxillary antrostomy was widely patent. The scope was removed. The patient tolerated the procedure well. Assessment and Plan: Overall, she appears to be doing very well and the rhinolith and/or fungus ball seems to have cleared up and has not build up since I have last seen her which was approximately 1 year ago. We did dispense her sinus rinse kit today for those occasions when she feels that there is some increased build up. She will follow up with me on an as needed basis. Mayra Vega M.D. LES / MATTHIAS [id number] / [id number] / [id number] / Mahmood Building Rental Manager In - 07/23/2005 3:07 AM PDTClinic Date: 11/07/2002 Clinic: CARDIOLOGY CLINIC Reason for Visit: Mrs. Schaeffer is a 62-year-old woman who comes in for her yearly followup for her rheumatic heart disease. Medical Problem List 1. Rheumatic heart disease. 1.1. Mitral valve commissurotomy. 1.2. 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 1.3. Chronic Coumadin therapy. 1.4. Functional class II status. 2. Hypertension. She is very sensitive to the lisinopril, ends up taking it about every 3 days. 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 4. Chronic migraines. 5. Chronic swelling of the left arm from surgery. 6. Multiple allergies. 7. Hyperthyroidism, now euthyroid. Medications: Coumadin based on the INR; levothyroxine 0.044 mg q.d.; Advair Diskus 100/50 mg, two times daily; albuterol as needed; Claritin 10 mg q.d.; lisinopril 10 mg, usually a half tablet every 3 or 4 days for the hypertension; Lasix 20 mg p.r.n.; salsalate 500 mg p.r.n.; Flonase 2 sprays each nostril; meclozine 25 mg as needed; Flexeril as needed; Librium 5 mg as needed; Phenergan 25 mg as needed; Tylenol 500 mg as needed; and potassium one, 10 mEq tablet q.d. Subjective: Overall, Mrs. Schaeffer has had a good year. Her activity level is good. She had not had any problems with Coumadin. 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 Her episodes of dizziness and migraines have decreased significantly. She checks her blood pressure at home. It is rarely above 140 and when it is, she takes a lisinopril. She is having no chest pain. No symptoms of embolic disease. Review of Systems: She has been followed by an plexiglas former for her thyroid disease. Her last labs were euthyroid. Physical Examination Vital Signs: Blood pressure by the nurse was 142/76. When I took it was actually 160/75. Pulse 75. Weight is 140, which is up above 4 pounds for her. Lungs: Clear to auscultation. Cardiac: Jugular venous pulses are less than 8 cm. On auscultation, the bowel sounds are heard. There is a 2/6 systolic ejection murmur. No diastolic murmurs heard. Abdomen: Nontender, not obese. Extremities: Trace of edema. Assessment: Mrs. Schaeffer is doing fine. Recommendations 1. The patient will follow up in 1 year's time for a routine evaluation. 2. She will follow up with Dr. Watson whom she sees in [place]. Emanuel Morgan M.D. GP / HS [id number] / [id number] / [id number] / cc: Luis Watson M.D. [address] [id number] signed by Interface, Building Rental Manager In at 07/23/2005 3 :07 AM PDTdocumented in this encounter Plan of Treatment Not on filedocumented as of this encounter Visit Diagnoses Not on filedocumented in this encounter"
--- OUTSIDE RECORDS SUMMARY | ~2019-09-03 | XMS | Encounter Summary ---
Demographics + + + | Address | [address] | | | [place] [address] | + + + | Home Phone [...] Josue Schaeffer | ECON | [address] | | | | | [place] [address] | | + + + + + | Dariana Dowling | ECON | Unknown | | + + + + + Care Team Providers + +------+ + | Care Wood Experimental Mechanic Name | Role | Phone | + +------+ + | Josiah Walls MD | PCP | | + +------+ + Encounter Details +--------+ + + + + | Date | Type | Department | Care Team | Description | +--------+ + + + + | 12/09/ | Results | Registration [id number] | | | | 1995 | Only | [address] | | | | | | [address] Mailcode: [id number] | | | | | | [place], [place] | | | | | | [address] | | | | | | [phone] | | | +--------+ + + + [...] | COAGULATION TESTS 2 | Routin | 01/06/1995 | | Results for this | | | e | 11:38 AM | | procedure are in the | | | | PST | | results section. | + +--------+ + + + | COAGULATION TESTS 2 | Routin | 12/17/1994 | | Results for this | | | e | 6:40 AM | | procedure are in the | | | | PST | | results section. | + +--------+ + + + | COAGULATION TESTS 2 | Routin | 12/16/1994 | | Results for this | | | e | 6:15 AM | | procedure are in the | | | | PST | | results section. | + +--------+ + + + | CHEMISTRY TESTS 4 | Routin | 12/15/1994 | | Results for this | | | e | 6:30 AM | | procedure are in the | | | | PST | | results section. | + +--------+ + + + | CBC TESTS 2 | Routin | 12/15/1994 | | Results for this | | | e | 6:30 AM | | procedure are in the | | | | PST | | results section. | + +--------+ + + + | COAGULATION TESTS 2 | Routin | 12/15/1994 | | Results for this | | | e | 6:30 AM | | procedure are in the | | | | PST | | results section. | + +--------+ + + + | CHEMISTRY TESTS 4 | Routin | 12/14/1994 | | Results for this | | | e | 5:37 AM | | procedure are in the | | | | PST | | results section. | + +--------+ + + + | CHEMISTRY TESTS 4 | Routin | 12/14/1994 | | Results for this | | | e | 5:37 AM | | procedure are in the | | | | PST | | results section. | + +--------+ + + + | CBC TESTS 2 | Routin | 12/14/1994 | | Results for this | | | e | 5:37 AM | | procedure are in the | | | | PST | | results section. | + +--------+ + + + | BLOOD GASES, | Routin | 12/14/1994 | | Results for this | | ARTERIAL - LAB | e | 5:37 AM | | procedure are in the | | | | PST | | results section. | + +--------+ + + + | BLOOD GASES, VENOUS | Routin | 12/14/1994 | | Results for this | | - LAB | e | 5:37 AM | | procedure are in the | | | | PST | | results section. | + +--------+ + + + | CHEMISTRY TESTS 4 | Routin | 12/13/1994 | | Results for this | | | e | 4:00 PM | | procedure are in the | | | | PST | | results section. | + +--------+ + + + | CHEMISTRY TESTS 4 | Routin | 12/13/1994 | | Results for this | | | e | 5:04 AM | | procedure are in the | | | | PST | | results section. | + +--------+ + + + | BLOOD GASES, | Routin | 12/13/1994 | | Results for this | | ARTERIAL - LAB | e | 5:04 AM | | procedure are in the | | | | PST | | results section. | + +--------+ + + + | BLOOD GASES, VENOUS | Routin | 12/13/1994 | | Results for this | | - LAB | e | 5:04 AM | | procedure are in the | | | | PST | | results section. | + +--------+ + + + | CBC TESTS 2 | Routin | 12/13/1994 | | Results for this | | | e | 4:38 AM | | procedure are in the | | | | PST | | results section. | + +--------+ + + + | CHEMISTRY TESTS 4 | Routin | 12/13/1994 | | Results for this | | | e | 4:37 AM | | procedure are in the | | | | PST | | results section. | + +--------+ + + + | CHEMISTRY TESTS 4 | Routin | 12/12/1994 | | Results for this | | | e | 6:00 PM | | procedure are in the | | | | PST | | results section. | + +--------+ + + + | CHEMISTRY TESTS 4 | Routin | 12/12/1994 | | Results for this | | | e | 10:45 AM | | procedure are in the | | | | PST | | results section. | + +--------+ + + + | BLOOD GASES, | Routin | 12/12/1994 | | Results for this | | ARTERIAL - LAB | e | 10:45 AM | | procedure are in the | | | | PST | | results section. | + +--------+ + + + | CHEMISTRY TESTS 4 | Routin | 12/12/1994 | | Results for this | | | e | 4:42 AM | | procedure are in the | | | | PST | | results section. | + +--------+ + + + | CBC TESTS 2 | Routin | 12/12/1994 | | Results for this | | | e | 4:39 AM | | procedure are in the | | | | PST | | results section. | + +--------+ + + + | CHEMISTRY TESTS 4 | Routin | 12/12/1994 | | Results for this | | | e | 4:33 AM | | procedure are in the | | | | PST | | results section. | + +--------+ + + + | BLOOD GASES, | Routin | 12/12/1994 | | Results for this | | ARTERIAL - LAB | e | 4:33 AM | | procedure are in the | | | | PST | | results section. | + +--------+ + + + | CHEMISTRY TESTS 4 | Routin | 12/11/1994 | | Results for this | | | e | 11:10 PM | | procedure are in the | | | | PST | | results section. | + +--------+ + + + | CBC TESTS 2 | Routin | 12/11/1994 | | Results for this | | | e | 11:10 PM | | procedure are in the | | | | PST | | results section. | + +--------+ + + + | BLOOD GASES, | Routin | 12/11/1994 | | Results for this | | ARTERIAL - LAB | e | 11:10 PM | | procedure are in the | | | | PST | | results section. | + +--------+ + + + | CHEMISTRY TESTS 4 | Routin | 12/11/1994 | | Results for this | | | e | 6:50 PM | | procedure are in the | | | | PST | | results section. | + +--------+ + + + | CHEMISTRY TESTS 4 | Routin | 12/11/1994 | | Results for this | | | e | 4:40 PM | | procedure are in the | | | | PST | | results section. | + +--------+ + + + | BLOOD GASES, | Routin | 12/11/1994 | | Results for this | | ARTERIAL - LAB | e | 11:00 AM | | procedure are in the | | | | PST | | results section. | + +--------+ + + + | CHEMISTRY TESTS 4 | Routin | 12/11/1994 | | Results for this | | | e | 9:03 AM | | procedure are in the | | | | PST | | results section. | + +--------+ + + + | BLOOD GASES, | Routin | 12/11/1994 | | Results for this | | ARTERIAL - LAB | e | 9:03 AM | | procedure are in the | | | | PST | | results section. | + +--------+ + + + | BLOOD GASES, | Routin | 12/11/1994 | | Results for this | | ARTERIAL - LAB | e | 5:30 AM | | procedure are in the | | | | PST | | results section. | + +--------+ + + + | CHEMISTRY TESTS 4 | Routin | 12/11/1994 | | Results for this | | | e | 4:08 AM | | procedure are in the | | | | PST | | results section. | + +--------+ + + + | CBC TESTS 2 | Routin | 12/11/1994 | | Results for this | | | e | 4:08 AM | | procedure are in the | | | | PST | | results section. | + +--------+ + + + | BLOOD GASES, | Routin | 12/11/1994 | | Results for this | | ARTERIAL - LAB | e | 4:08 AM | | procedure are in the | | | | PST | | results section. | + +--------+ + + + | CHEMISTRY TESTS 4 | Routin | 12/11/1994 | | Results for this | | | e | 4:05 AM | | procedure are in the | | | | PST | | results section. | + +--------+ + + + | CHEMISTRY TESTS 2 | Routin | 12/11/1994 | | Results for this | | | e | 4:05 AM | | procedure are in the | | | | PST | | results section. | + +--------+ + + + | CHEMISTRY TESTS 4 | Routin | 12/10/1994 | | Results for this | | | e | 10:00 PM | | procedure are in the | | | | PST | | results section. | + +--------+ + + + | BLOOD GASES, | Routin | 12/10/1994 | | Results for this | | ARTERIAL - LAB | e | 10:00 PM | | procedure are in the | | | | PST | | results section. | + +--------+ + + + | CHEMISTRY TESTS 4 | Routin | 12/10/1994 | | Results for this | | | e | 7:45 PM | | procedure are in the | | | | PST | | results section. | + +--------+ + + + | BLOOD GASES, | Routin | 12/10/1994 | | Results for this | | ARTERIAL - LAB | e | 7:45 PM | | procedure are in the | | | | PST | | results section. | + +--------+ + + + | MICROBIOLOGY TESTS 1 | Routin | 12/10/1994 | | Results for this | | | e | 6:51 PM | | procedure are in the | | | | PST | | results section. | + +--------+ + + + | MICROBIOLOGY TESTS 1 | Routin | 12/10/1994 | | Results for this | | | e | 6:50 PM | | procedure are in the | | | | PST | | results section. | + +--------+ + + + | CHEMISTRY TESTS 4 | Routin | 12/10/1994 | | Results for this | | | e | 6:10 PM | | procedure are in the | | | | PST | | results section. | + +--------+ + + + | CHEMISTRY TESTS 4 | Routin | 12/10/1994 | | Results for this | | | e | 6:10 PM | | procedure are in the | | | | PST | | results section. | + +--------+ + + + | CBC TESTS 2 | Routin | 12/10/1994 | | Results for this | | | e | 6:10 PM | | procedure are in the | | | | PST | | results section. | + +--------+ + + + | COAGULATION TESTS 2 | Routin | 12/10/1994 | | Results for this | | | e | 6:10 PM | | procedure are in the | | | | PST | | results section. | + +--------+ + + + | BLOOD GASES, | Routin | 12/10/1994 | | Results for this | | ARTERIAL - LAB | e | 6:10 PM | | procedure are in the | | | | PST | | results section. | + +--------+ + + + | TRANSFUSION MEDICINE | Routin | 12/09/1994 | | Results for this | | TESTS | e | 8:38 PM | | procedure are in the | | | | PST | | results section. | + +--------+ + + + | TRANSFUSION MEDICINE | Routin | 12/09/1994 | | Results for this | | TESTS | e | 8:38 PM | | procedure are in the | | | | PST | | results section. | + +--------+ + + + | CHEMISTRY TESTS 4 | Routin | 12/09/1994 | | Results for this | | | e | 6:00 PM | | procedure are in the | | | | PST | | results section. | + +--------+ + + + | CBC TESTS 2 | Routin | 12/09/1994 | | Results for this | | | e | 6:00 PM | | procedure are in the | | | | PST | | results section. | + +--------+ + + + | COAGULATION TESTS 2 | Routin | 12/09/1994 | | Results for this | | | e | 6:00 PM | | procedure are in the | | | | PST | | results section. | + +--------+ + + + | URINALYSIS TESTS | Routin | 12/09/1994 | | Results for this | | | e | 2:20 AM | | procedure are in the | | | | PST | | results section. | + +--------+ + + + documented in this encounter Results COAGULATION TESTS 2 (01/06/1995 11:38 AM PST) + + + + + + | Component | Value | Ref Range | Performed | Pathologist | | | | | At | Signature | + + + + + + | PROTHROMBIN | 16.9 (H) | SECONDS | | | | TIME | | | | | + + + + + + | PROTIME | 1.4 | SECONDS | | | | RATIO | | | | | + + + + + + | PROTHROMBIN | 2.08 | INR | | | | INR [...] [facility] | [address] | [place] [address] | | | PATHOLOGY | [address] | | | + + + + + COAGULATION TESTS 2 (12/17/1994 6:40 AM PST) + + + + + + | Component | Value | Ref Range | Performed | Pathologist | | | | | At | Signature | + + + + + + | PROTHROMBIN | 21.7 (H) | SECONDS | | | | TIME | | | | | + + + + + + | PROTIME | 1.8 | SECONDS | | | | RATIO | | | | | + + + + + + | PROTHROMBIN | 3.47 | INR | | | | INR [...] [facility] | [address] | [place] [address] | | | PATHOLOGY | [address] | | | + + + + + COAGULATION TESTS 2 (12/16/1994 6:15 AM PST) + + + + + + | Component | Value | Ref Range | Performed | Pathologist | | | | | At | Signature | + + + + + + | PROTHROMBIN | 17.7 (H) | SECONDS | | | | TIME | | | | | + + + + + + | PROTIME | 1.5 | SECONDS | | | | RATIO | | | | | + + + + + + | PROTHROMBIN | 2.29 | INR | | | | INR [...] [facility] | [address] | [place] [address] | | | PATHOLOGY | [address] | | | + + + + + CHEMISTRY TESTS 4 (12/15/1994 6:30 AM PST) + + + + + + | Component | Value | Ref Range | Performed | Pathologist | | | | | At | Signature | + + + + + + | SODIUM, | 141. | mmol/l | | | | PLASMA | | | | | | (LAB) | | | | | + + + + + + | POTASSIUM, | 4.3 | mmol/l | | | | PLASMA | | | | | | (LAB) | | | | | + + + + + + | CHLORIDE, | 107. | mmol/l | | | | PLASMA | | | | | | (LAB) | | | | | + + + + + + | TOTAL CO2, | 29. | mmol/l | | | | PLASMA | | | | | | (LAB) | | | | | + + + + + + | BUN, PLASMA | 27. (H) | mg/dL | | | | (LAB) | | | | | + + + + + + | CREATININE | 0.8 | mg/dL | | | | PLASMA | | | | | | (LAB) | | | | | + + + + + + | GLUCOSE, | 99. | mg/dL | | | | PLASMA [...] [facility] | [address] | [place] [address] | | | PATHOLOGY | [address] | | | + + + + + COAGULATION TESTS 2 (12/15/1994 6:30 AM PST) + + + + + [...] [facility] | [address] | [place] [address] | | | PATHOLOGY | [address] | | | + + + + + CBC TESTS 2 (12/15/1994 6:30 AM PST) + + + + + + | Component | Value | Ref Range | Performed | Pathologist | | | | | At | Signature | + + + + + + | WHITE CELL | 10. | K/CU MM | | | | COUNT | | | | | + + + + + + | RED CELL | 4.15 | M/CU MM | | | | COUNT | | | | | + + + + + + | HEMOGLOBIN | 12.7 | GM/DL | | | + + + + + + | HEMATOCRIT | 37.5 | % | | | + + + + + + | MCV | 90.3 | FL | | | + + + + + + | MCH | 30.6 | PG | | | + + + + + + | MCHC | 33.9 | GM/DL | | | + + + + + + | RDW | 14.1 | % | | | + + + + + + | PLATELET | 131. (L) | K/CU MM | | | | COUNT | | | | | + + + + + + | MPV | 9.2 | FL | | | + + + + + + | NEUTROPHIL | 64. | % | | | | % | | | | | + + + + + + | LYMPHOCYTE | 21. | % | | | | % | | | | | + + + + + + | MONOCYTE % | 10. (H) | % | | | + + + + + + | EOS % | 4. | % | | | + + + + + + | BASO % | 1. | % | | | + + + + + + | NEUTROPHIL | 6.4 | K/CU MM | | | | # | | | | | + + + + + + | LYMPHOCYTE | 2.1 | K/CU MM | | | | # | | | | | + + + + + + | MONOCYTE # | 1. (H) | K/CU MM | | | + + + + + + | EOS # | 0.4 | K/CU MM | | | + + + + + + | BASO # | 0.1 | K/CU MM | | | + + + + + + + + | Specimen | + + | | + + + + + + + | Performing | Address | City/State/Zipcode | Phone Number | | Organization | | | | + + + + + | [facility] | [address] | [place] [address] | | | PATHOLOGY | [address] | | | + + + + + CHEMISTRY TESTS 4 (12/14/1994 5:37 AM PST) + + + + + + | Component | Value | Ref Range | Performed | Pathologist | | | | | At | Signature | + + + + + + | SODIUM,WHOL | 142. | mmol/l | | | | E BLOOD | | | | | + + + + + + | POTASSIUM,W | 4.2 | mmol/l | | | | HOLE BLD | | | | | + + + + + + | GLUCOSE,WHO | 118. (H) | mg/dL | | | | LE BLOOD | | | | | + + + + + + | PH, WHOLE | 7.52 | mg/dL | | | | BLOOD | | | | | + + + + + + | CALC ICA, | 1.26 | mmol/l | | | | WHOLE BLD | | | | | + + + + + + | JUVENAL ICA, | 1.18 | mmol/l | | | | WHOLE BLD | | | | | + + + + + + + + | Specimen | + + | | + + + + + + + | Performing | Address | City/State/Zipcode | Phone Number | | Organization | | | | + + + + + | [facility] | [address] | [place] [address] | | | PATHOLOGY | [address] | | | + + + + + BLOOD GASES, ARTERIAL - LAB (12/14/1994 5:37 AM PST) + + + + + + | Component | Value | Ref Range | Performed | Pathologist | | | | | At | Signature | + + + + + + | BLOOD GAS | REQUEST CANCELLED BY | | | | | ARTERIAL | PHYSICIAN/FLOOR | | | | + + + + + + | PAT TEMP | 38. | DEGREES C. | | | | ARTERIAL | | | | | + + + + + + | FIO2 | 2LNC | DEGREES C. | | | | ARTERIAL | | | | | + + + + + + + + | Specimen | + + | | + + + + + + + | Performing | Address | City/State/Zipcode | Phone Number | | Organization | | | | + + + + + | [facility] | [address] | [place] [address] | | | PATHOLOGY | [address] | | | + + + + + BLOOD GASES, VENOUS - LAB (12/14/1994 5:37 AM PST) + + + + + + | Component | Value | Ref Range | Performed | Pathologist | | | | | At | Signature | + + + + + + | PAT TEMP | 38. | DEGREES C. | | | | VENOUS | | | | | + + + + + + | FIO2 VENOUS | 2LNC | DEGREES C. | | | + + + + + + | PH VENOUS | 7.51 (H) | DEGREES C. | | | + + + + + + | PCO2 VENOUS | 35. | MM HG | | | + + + + + + | PO2 VENOUS | 105. (H) | MM HG | | | + + + + + + | BASE EXCESS | 5.7 | MM HG | | | | VENOUS | | | | | + + + + + + | HCO3 VENOUS | 28. | mmol/l | | | + + + + + + | TOTAL CO2 | 29. | mmol/l | | | | VENOUS | | | | | + + + + + + | CALC %O2 | 98.4 | % O2 Sat | | | | SAT VENOUS | | | | | + + + + + + + + | Specimen | + + | | + + + + + + + | Performing | Address | City/State/Zipcode | Phone Number | | Organization | | | | + + + + + | [facility] | [address] | [place] [address] | | | PATHOLOGY | [address] | | | + + + + + CBC TESTS 2 (12/14/1994 5:37 AM PST) + + + + + + | Component | Value | Ref Range | Performed | Pathologist | | | | | At | Signature | + + + + + + | WHITE CELL | 12.5 (H) | K/CU MM | | | | COUNT | | | | | + + + + + + | RED CELL | 4.21 | M/CU MM | | | | COUNT | | | | | + + + + + + | HEMOGLOBIN | 12.8 | GM/DL | | | + + + + + + | HEMATOCRIT | 37.1 | % | | | + + + + + + | MCV | 88.1 | FL | | | + + + + + + | MCH | 30.3 | PG | | | + + + + + + | MCHC | 34.4 (H) | GM/DL | | | + + + + + + | RDW | 14.1 | % | | | + + + + + + | PLATELET | 102. (L) | K/CU MM | | | | COUNT | | | | | + + + + + + | MPV | 9.5 | FL | | | + + + + + + | NEUTROPHIL | 78. | % | | | | % | | | | | + + + + + + | LYMPHOCYTE | 11. (L) | % | | | | % | | | | | + + + + + + | MONOCYTE % | 7. | % | | | + + + + + + | EOS % | 1. | % | | | + + + + + + | BASO % | 4. (H) | % | | | + + + + + + | NEUTROPHIL | 9.8 (H) | K/CU MM | | | | # | | | | | + + + + + + | LYMPHOCYTE | 1.3 | K/CU MM | | | | # | | | | | + + + + + + | MONOCYTE # | 0.9 (H) | K/CU MM | | | + + + + + + | EOS # | 0.1 | K/CU MM | | | + + + + + + | BASO # | 0.4 (H) | K/CU MM | | | + + + + + + + + | Specimen | + + | | + + + + + + + | Performing | Address | City/State/Zipcode | Phone Number | | Organization | | | | + + + + + | [facility] | [address] | [place] [address] | | | PATHOLOGY | [address] | | | + + + + + CHEMISTRY TESTS 4 (12/14/1994 5:37 AM PST) + + + + + + | Component | Value | Ref Range | Performed | Pathologist | | | | | At | Signature | + + + + + + | BUN, PLASMA | 26. (H) | mg/dL | | | | (LAB) | | | | | + + + + + + | CREATININE | 0.7 | mg/dL | | | | PLASMA [...] [facility] | [address] | [place] [address] | | | PATHOLOGY | [address] | | | + + + + + CHEMISTRY TESTS 4 (12/13/1994 4:00 PM PST) + + + + + + | Component | Value | Ref Range | Performed | Pathologist | | | | | At | Signature | + + + + + + | SODIUM,WHOL | 143. | mmol/l | | | | E BLOOD | | | | | + + + + + + | POTASSIUM,W | 3.9 | mmol/l | | | | HOLE BLD | | | | | + + + + + + | GLUCOSE,WHO | 147. (H) | mg/dL | | | | LE BLOOD | | | | | + + + + + + | PH, WHOLE | 7.5 | mg/dL | | | | BLOOD | | | | | + + + + + + | CALC ICA, | 1.24 | mmol/l | | | | WHOLE BLD | | | | | + + + + + + | JUVENAL ICA, | 1.18 | mmol/l | | | | WHOLE BLD | | | | | + + + + + + + + | Specimen | + + | | + + + + + + + | Performing | Address | City/State/Zipcode | Phone Number | | Organization | | | | + + + + + | [facility] | [address] | [place] [address] | | | PATHOLOGY | [address] | | | + + + + + CHEMISTRY TESTS 4 (12/13/1994 5:04 AM PST) + + + + + + | Component | Value | Ref Range | Performed | Pathologist | | | | | At | Signature | + + + + + + | SODIUM,WHOL | 143. | mmol/l | | | | E BLOOD | | | | | + + + + + + | POTASSIUM,W | 4.8 (H) | mmol/l | | | | HOLE BLD | | | | | + + + + + + | GLUCOSE,WHO | 149. (H) | mg/dL | | | | LE BLOOD | | | | | + + + + + + | PH, WHOLE | 7.49 | mg/dL | | | | BLOOD | | | | | + + + + + + | CALC ICA, | 1.29 (H) | mmol/l | | | | WHOLE BLD | | | | | + + + + + + | JUVENAL ICA, | 1.23 | mmol/l | | | | WHOLE BLD | | | | | + + + + + + + + | Specimen | + + | | + + + + + + + | Performing | Address | City/State/Zipcode | Phone Number | | Organization | | | | + + + + + | [facility] | [address] | [place] [address] | | | PATHOLOGY | [address] | | | + + + + + BLOOD GASES, ARTERIAL - LAB (12/13/1994 5:04 AM PST) + + + + + + | Component | Value | Ref Range | Performed | Pathologist | | | | | At | Signature | + + + + + + | BLOOD GAS | ERRONEOUS REQUEST | | | | | ARTERIAL | | | | | + + + + + + + + | Specimen | + + | | + + + + + + + | Performing | Address | City/State/Zipcode | Phone Number | | Organization | | | | + + + + + | [facility] | [address] | [place] [address] | | | PATHOLOGY | [address] | | | + + + + + BLOOD GASES, VENOUS - LAB (12/13/1994 5:04 AM PST) + + + + + + | Component | Value | Ref Range | Performed | Pathologist | | | | | At | Signature | + + + + + + | PAT TEMP | 36.3 | DEGREES C. | | | | VENOUS | | | | | + + + + + + | FIO2 VENOUS | 2L/NC | DEGREES C. | | | + + + + + + | PH VENOUS | 7.5 (H) | DEGREES C. | | | + + + + + + | PCO2 VENOUS | 34. (L) | MM HG | | | + + + + + + | PO2 VENOUS | 69. (H) | MM HG | | | + + + + + + | BASE EXCESS | 4.4 | MM HG | | | | VENOUS | | | | | + + + + + + | HCO3 VENOUS | 27. | mmol/l | | | + + + + + + | TOTAL CO2 | 28. | mmol/l | | | | VENOUS | | | | | + + + + + + | CALC %O2 | 95.6 | % O2 Sat | | | | SAT VENOUS | | | | | + + + + + + + + | Specimen | + + | | + + + + + + + | Performing | Address | City/State/Zipcode | Phone Number | | Organization | | | | + + + + + | [facility] | [address] | [place] [address] | | | PATHOLOGY | [address] | | | + + + + + CBC TESTS 2 (12/13/1994 4:38 AM PST) + + + + + + | Component | Value | Ref Range | Performed | Pathologist | | | | | At | Signature | + + + + + + | WHITE CELL | 16.8 (H) | K/CU MM | | | | COUNT | | | | | + + + + + + | RED CELL | 4.36 | M/CU MM | | | | COUNT | | | | | + + + + + + | HEMOGLOBIN | 13.2 | GM/DL | | | + + + + + + | HEMATOCRIT | 38.4 | % | | | + + + + + + | MCV | 88. | FL | | | + + + + + + | MCH | 30.2 | PG | | | + + + + + + | MCHC | 34.3 (H) | GM/DL | | | + + + + + + | RDW | 14.4 | % | | | + + + + + + | PLATELET | 78. (L) | K/CU MM | | | | COUNT | | | | | + + + + + + | MPV | 10.1 | FL | | | + + + + + + | NEUTROPHIL | 90. (H) | % | | | | % | | | | | + + + + + + | NEUTROPHIL | FINAL DIFF, SMEAR | % | | | | % | REVIEWED (H) | | | | + + + + + + | LYMPHOCYTE | 5. (L) | % | | | | % | | | | | + + + + + + | MONOCYTE % | 5. | % | | | + + + + + + | EOS % | 0. | % | | | + + + + + + | BASO % | 0. | % | | | + + + + + + | NEUTROPHIL | 15. (H) | K/CU MM | | | | # | | | | | + + + + + + | LYMPHOCYTE | 0.8 (L) | K/CU MM | | | | # | | | | | + + + + + + | MONOCYTE # | 0.8 (H) | K/CU MM | | | + + + + + + | EOS # | 0.1 | K/CU MM | | | + + + + + + | BASO # | 0.1 | K/CU MM | | | + + + + + + + + | Specimen | + + | | + + + + + + + | Performing | Address | City/State/Zipcode | Phone Number | | Organization | | | | + + + + + | [facility] | [address] | [place] [address] | | | PATHOLOGY | [address] | | | + + + + + CHEMISTRY TESTS 4 (12/13/1994 4:37 AM PST) + + + + + + | Component | Value | Ref Range | Performed | Pathologist | | | | | At | Signature | + + + + + + | BUN, PLASMA | 27. (H) | mg/dL | | | | (LAB) | | | | | + + + + + + | CREATININE | 0.8 | mg/dL | | | | PLASMA [...] DEPARTMENT OF | [address] | [place] [address] | | | PATHOLOGY | [address] | | | + + + + + CHEMISTRY TESTS 4 (12/12/1994 6:00 PM PST) + + + + + + | Component | Value | Ref Range | Performed | Pathologist | | | | | At | Signature | + + + + + + | SODIUM,WHOL | 143. | mmol/l | | | | E BLOOD | | | | | + + + + + + | POTASSIUM,W | 4.5 | mmol/l | | | | HOLE BLD | | | | | + + + + + + | GLUCOSE,WHO | 161. (H) | mg/dL | | | | LE BLOOD | | | | | + + + + + + | PH, WHOLE | 7.46 | mg/dL | | | | BLOOD | | | | | + + + + + + | CALC ICA, | 1.25 | mmol/l | | | | WHOLE BLD | | | | | + + + + + + | JUVENAL ICA, | 1.22 | mmol/l | | | | WHOLE BLD | | | | | + + + + + + + + | Specimen | + + | | + + + + + + + | Performing | Address | City/State/Zipcode | Phone Number | | Organization | | | | + + + + + | [facility] | [address] | [place] [address] | | | PATHOLOGY | [address] | | | + + + + + CHEMISTRY TESTS 4 (12/12/1994 10:45 AM PST) + + + + + + | Component | Value | Ref Range | Performed | Pathologist | | | | | At | Signature | + + + + + + | SODIUM,WHOL | 143. | mmol/l | | | | E BLOOD | | | | | + + + + + + | POTASSIUM,W | 4.5 | mmol/l | | | | HOLE BLD | | | | | + + + + + + | GLUCOSE,WHO | 162. (H) | mg/dL | | | | LE BLOOD | | | | | + + + + + + | PH, WHOLE | 7.46 | mg/dL | | | | BLOOD | | | | | + + + + + + | CALC ICA, | 1.31 (H) | mmol/l | | | | WHOLE BLD | | | | | + + + + + + | JUVENAL ICA, | 1.27 | mmol/l | | | | WHOLE BLD | | | | | + + + + + + + + | Specimen | + + | | + + + + + + + | Performing | Address | City/State/Zipcode | Phone Number | | Organization | | | | + + + + + | [place] [facility] | [address] | [place] [address] | | | PATHOLOGY | [address] | | | + + + + + BLOOD GASES, ARTERIAL - LAB (12/12/1994 10:45 AM PST) + + + + + + | Component | Value | Ref Range | Performed | Pathologist | | | | | At | Signature | + + + + + + | PAT TEMP | 36.9 | [facility]GRE[facility] C. | | | | ARTERIAL | | | | | + + + + + + | FIO2 | 4. (L) | [facility]GRE[facility] C. | | | | ARTERIAL | | | | | + + + + + + | PH ARTERIAL | 7.46 (H) | [facility] C. | | | + + + + + + | PCO2 | 37. | MM HG | | | | ARTERIAL | | | | | + + + + + + | PO2 | 118. (H) | MM HG | | | | ARTERIAL | | | | | + + + + + + | BASE EXCESS | 3.3 | MM HG | | | | ARTERIAL | | | | | + + + + + + | HCO3 | 27. | mmol/l | | | | ARTERIAL | | | | | + + + + + + | TOTAL CO2 | 28. | mmol/l | | | | ARTERIAL | | | | | + + + + + + | CALC %O2 | 98.8 | % O2 Sat | | | | SAT ARTER | | | | | + + + + + + + + | Specimen | + + | | + + + + + + + | Performing | Address | City/State/Zipcode | Phone Number | | Organization | | | | + + + + + | [facility] | [address] | [place] [address] | | | PATHOLOGY | [address] | | | + + + + + CHEMISTRY TESTS 4 (12/12/1994 4:42 AM PST) + + + + + + | Component | Value | Ref Range | Performed | Pathologist | | | | | At | Signature | + + + + + + | BUN, PLASMA | 22. | mg/dL | | | | (LAB) | | | | | + + + + + + | CREATININE | 0.9 | mg/dL | | | | PLASMA [...] [facility] | [address] | [place] [address] | | | PATHOLOGY | [address] | | | + + + + + CBC TESTS 2 (12/12/1994 4:39 AM PST) + + + + + + | Component | Value | Ref Range | Performed | Pathologist | | | | | At | Signature | + + + + + + | WHITE CELL | 13.1 (H) | K/CU MM | | | | COUNT | | | | | + + + + + + | RED CELL | 4.01 | M/CU MM | | | | COUNT | | | | | + + + + + + | HEMOGLOBIN | 11.9 (L) | GM/DL | | | + + + + + + | HEMATOCRIT | 35.6 (L) | % | | | + + + + + + | MCV | 88.8 | FL | | | + + + + + + | MCH | 29.7 | PG | | | + + + + + + | MCHC | 33.4 | GM/DL | | | + + + + + + | RDW | 14.8 | % | | | + + + + + + | PLATELET | 51. (L) | K/CU MM | | | | COUNT | | | | | + + + + + + | MPV | 9.1 | FL | | | + + + + + + | NEUTROPHIL | 85. (H) | % | | | | % | | | | | + + + + + + | NEUTROPHIL | PRELIMINARY DIFF, FINAL | % | | | | % | TO FOLLOW (H) | | | | + + + + + + | BANDS % | 6. (H) | % | | | + + + + + + | LYMPHOCYTE | 7. (L) | % | | | | % | | | | | + + + + + + | MONOCYTE % | 8. | % | | | + + + + + + | EOS % | 0. | % | | | + + + + + + | BASO % | 0. | % | | | + + + + + + | NEUTROPHIL | 11.2 (H) | K/CU MM | | | | # | | | | | + + + + + + | LYMPHOCYTE | 0.9 (L) | K/CU MM | | | | # | | | | | + + + + + + | LYMPHOCYTES | 5. (L) | % | | | + + + + + + | MONOCYTE # | 1. (H) | K/CU MM | | | + + + + + + | EOS # | 0. | K/CU MM | | | + + + + + + | BASO # | 0. | K/CU MM | | | + + + + + + | DIFFERENTIA | 100. | Cells Counted | | | | L, FINAL | | | | | + + + + + + | SEGMENTED | 83. (H) | % | | | | NEUTROPHIL | | | | | + + + + + + | MONOCYTES | 6. | % | | | + + + + + + | PLATELET | LOW | % | | | | ESTIMATE | | | | | + + + + + + | RBC | NORMAL | % | | | | MORPHOLOGY | | | | | + + + + + + + + | Specimen | + + | | + + + + + + + | Performing | Address | City/State/Zipcode | Phone Number | | Organization | | | | + + + + + | [facility] | [address] | [place] [address] | | | PATHOLOGY | [address] | | | + + + + + CHEMISTRY TESTS 4 (12/12/1994 4:33 AM PST) + + + + + + | Component | Value | Ref Range | Performed | Pathologist | | | | | At | Signature | + + + + + + | SODIUM,WHOL | 144. | mmol/l | | | | E BLOOD | | | | | + + + + + + | POTASSIUM,W | 4.5 | mmol/l | | | | HOLE BLD | | | | | + + + + + + | GLUCOSE,WHO | 148. (H) | mg/dL | | | | LE BLOOD | | | | | + + + + + + | PH, WHOLE | 7.48 | mg/dL | | | | BLOOD | | | | | + + + + + + | CALC ICA, | 1.3 (H) | mmol/l | | | | WHOLE BLD | | | | | + + + + + + | JUVENAL ICA, | 1.25 | mmol/l | | | | WHOLE BLD | | | | | + + + + + + + + | Specimen | + + | | + + + + + + + | Performing | Address | City/State/Zipcode | Phone Number | | Organization | | | | + + + + + | [facility] | [address] | [place] [address] | | | PATHOLOGY | [address] | | | + + + + + BLOOD GASES, ARTERIAL - LAB (12/12/1994 4:33 AM PST) + + + + + + | Component | Value | Ref Range | Performed | Pathologist | | | | | At | Signature | + + + + + + | PAT TEMP | 37.1 | [facility]GREES C. | | | | ARTERIAL | | | | | + + + + + + | FIO2 | 40% | DEGREES C. | | | | ARTERIAL | | | | | + + + + + + | PH ARTERIAL | 7.47 (H) | [facility] C. | | | + + + + + + | PCO2 | 39. | MM HG | | | | ARTERIAL | | | | | + + + + + + | PO2 | 96. | MM HG | | | | ARTERIAL | | | | | + + + + + + | BASE EXCESS | 5.3 | MM HG | | | | ARTERIAL | | | | | + + + + + + | HCO3 | 29. (H) | mmol/l | | | | ARTERIAL | | | | | + + + + + + | TOTAL CO2 | 30. (H) | mmol/l | | | | ARTERIAL | | | | | + + + + + + | CALC %O2 | 97.9 | % O2 Sat | | | | SAT ARTER | | | | | + + + + + + + + | Specimen | + + | | + + + + + + + | Performing | Address | City/State/Zipcode | Phone Number | | Organization | | | | + + + + + | [facility] | [address] | [place] [address] | | | PATHOLOGY | [address] | | | + + + + + CBC TESTS 2 (12/11/1994 11:10 PM PST) + + + + + + | Component | Value | Ref Range | Performed | Pathologist | | | | | At | Signature | + + + + + + | HEMATOCRIT | 36.3 (L) | % | | | + + + + + + + + | Specimen | + + | | + + + + + + + | Performing | Address | City/State/Zipcode | Phone Number | | Organization | | | | + + + + + | [facility] | [address] | [place] [address] | | | PATHOLOGY | [address] | | | + + + + + CHEMISTRY TESTS 4 (12/11/1994 11:10 PM PST) + + + + + + | Component | Value | Ref Range | Performed | Pathologist | | | | | At | Signature | + + + + + + | SODIUM,WHOL | 143. | mmol/l | | | | E BLOOD | | | | | + + + + + + | POTASSIUM,W | 4.3 | mmol/l | | | | HOLE BLD | | | | | + + + + + + | GLUCOSE,WHO | 171. (H) | mg/dL | | | | LE BLOOD | | | | | + + + + + + | PH, WHOLE | 7.45 | mg/dL | | | | BLOOD | | | | | + + + + + + | CALC ICA, | 1.29 (H) | mmol/l | | | | WHOLE BLD | | | | | + + + + + + | JUVENAL ICA, | 1.26 | mmol/l | | | | WHOLE BLD | | | | | + + + + + + + + | Specimen | + + | | + + + + + + + | Performing | Address | City/State/Zipcode | Phone Number | | Organization | | | | + + + + + | [facility] | [address] | [place] [address] | | | PATHOLOGY | [address] | | | + + + + + BLOOD GASES, ARTERIAL - LAB (12/11/1994 11:10 PM PST) + + + + + + | Component | Value | Ref Range | Performed | Pathologist | | | | | At | Signature | + + + + + + | PAT TEMP | 36.9 | [facility]. | | | | ARTERIAL | | | | | + + + + + + | FIO2 | 40% | [facility]GRE[facility] C. | | | | ARTERIAL | | | | | + + + + + + | PH ARTERIAL | 7.45 (H) | [facility]. | | | + + + + + + | PCO2 | 37. | MM HG | | | | ARTERIAL | | | | | + + + + + + | PO2 | 96. | MM HG | | | | ARTERIAL | | | | | + + + + + + | BASE EXCESS | 2.5 | MM HG | | | | ARTERIAL | | | | | + + + + + + | HCO3 | 26. | mmol/l | | | | ARTERIAL | | | | | + + + + + + | TOTAL CO2 | 27. | mmol/l | | | | ARTERIAL | | | | | + + + + + + | CALC %O2 | 97.8 | % O2 Sat | | | | SAT ARTER | | | | | + + + + + + + + | Specimen | + + | | + + + + + + + | Performing | Address | City/State/Zipcode | Phone Number | | Organization | | | | + + + + + | [facility] | [address] | [place] [address] | | | PATHOLOGY | [address] | | | + + + + + CHEMISTRY TESTS 4 (12/11/1994 6:50 PM PST) + + + + + + | Component | Value | Ref Range | Performed | Pathologist | | | | | At | Signature | + + + + + + | SODIUM,WHOL | 145. | mmol/l | | | | E BLOOD | | | | | + + + + + + | POTASSIUM,W | 4.7 | mmol/l | | | | HOLE BLD | | | | | + + + + + + + + | Specimen | + + | | + + + + + + + | Performing | Address | City/State/Zipcode | Phone Number | | Organization | | | | + + + + + | [facility] | [address] | [place] [address] | | | PATHOLOGY | [address] | | | + + + + + CHEMISTRY TESTS 4 (12/11/1994 4:40 PM PST) + + + + + + | Component | Value | Ref Range | Performed | Pathologist | | | | | At | Signature | + + + + + + | SODIUM,WHOL | 145. | mmol/l | | | | E BLOOD | | | | | + + + + + + | POTASSIUM,W | 4.2 | mmol/l | | | | HOLE BLD | | | | | + + + + + + + + | Specimen | + + | | + + + + + + + | Performing | Address | City/State/Zipcode | Phone Number | | Organization | | | | + + + + + | [facility] | [address] | [place] [address] | | | PATHOLOGY | [address] | | | + + + + + BLOOD GASES, ARTERIAL - LAB (12/11/1994 11:00 AM PST) + + + + + + | Component | Value | Ref Range | Performed | Pathologist | | | | | At | Signature | + + + + + + | PAT TEMP | 36.9 | [facility]. | | | | ARTERIAL | | | | | + + + + + + | FIO2 | 40% | [facility] C. | | | | ARTERIAL | | | | | + + + + + + | PH ARTERIAL | 7.4 | [facility] C. | | | + + + + + + | PCO2 | 42. | MM HG | | | | ARTERIAL | | | | | + + + + + + | PO2 | 83. | MM HG | | | | ARTERIAL | | | | | + + + + + + | BASE EXCESS | 1.7 | MM HG | | | | ARTERIAL | | | | | + + + + + + | HCO3 | 26. | mmol/l | | | | ARTERIAL | | | | | + + + + + + | TOTAL CO2 | 27. | mmol/l | | | | ARTERIAL | | | | | + + + + + + | CALC %O2 | 96.2 | % O2 Sat | | | | SAT ARTER | | | | | + + + + + + + + | Specimen | + + | | + + + + + + + | Performing | Address | City/State/Zipcode | Phone Number | | Organization | | | | + + + + + | [facility] | [address] | [place] [address] | | | PATHOLOGY | [address] | | | + + + + + CHEMISTRY TESTS 4 (12/11/1994 9:03 AM PST) + + + + + + | Component | Value | Ref Range | Performed | Pathologist | | | | | At | Signature | + + + + + + | SODIUM,WHOL | 147. | mmol/l | | | | E BLOOD | | | | | + + + + + + | POTASSIUM,W | 4. | mmol/l | | | | HOLE BLD | | | | | + + + + + + | GLUCOSE,WHO | 194. (H) | mg/dL | | | | LE BLOOD | | | | | + + + + + + | PH, WHOLE | 7.39 | mg/dL | | | | BLOOD | | | | | + + + + + + | CALC ICA, | 1.25 | mmol/l | | | | WHOLE BLD | | | | | + + + + + + | JUVENAL ICA, | 1.25 | mmol/l | | | | WHOLE BLD | | | | | + + + + + + + + | Specimen | + + | | + + + + + + + | Performing | Address | City/State/Zipcode | Phone Number | | Organization | | | | + + + + + | [facility] | [address] | [place] [address] | | | PATHOLOGY | [address] | | | + + + + + BLOOD GASES, ARTERIAL - LAB (12/11/1994 9:03 AM PST) + + + + + + | Component | Value | Ref Range | Performed | Pathologist | | | | | At | Signature | + + + + + + | PAT TEMP | 37. | [facility]GRE[facility] C. | | | | ARTERIAL | | | | | + + + + + + | FIO2 | 0.4 | [facility]GRE[facility] C. | | | | ARTERIAL | | | | | + + + + + + | PH ARTERIAL | 7.39 | [facility]. | | | + + + + + + | PCO2 | 40. | MM HG | | | | ARTERIAL | | | | | + + + + + + | PO2 | 87. | MM HG | | | | ARTERIAL | | | | | + + + + + + | BASE EXCESS | 0.4 | MM HG | | | | ARTERIAL | | | | | + + + + + + | HCO3 | 25. | mmol/l | | | | ARTERIAL | | | | | + + + + + + | TOTAL CO2 | 26. | mmol/l | | | | ARTERIAL | | | | | + + + + + + | CALC %O2 | 96.5 | % O2 Sat | | | | SAT ARTER | | | | | + + + + + + + + | Specimen | + + | | + + + + + + + | Performing | Address | City/State/Zipcode | Phone Number | | Organization | | | | + + + + + | [facility] | [address] | [place] [address] | | | PATHOLOGY | [address] | | | + + + + + BLOOD GASES, ARTERIAL - LAB (12/11/1994 5:30 AM PST) + + + + + + | Component | Value | Ref Range | Performed | Pathologist | | | | | At | Signature | + + + + + + | PAT TEMP | 36.7 | [facility]. | | | | ARTERIAL | | | | | + + + + + + | FIO2 | 40% | [facility]. | | | | ARTERIAL | | | | | + + + + + + | PH ARTERIAL | 7.4 | [facility] C. | | | + + + + + + | PCO2 | 35. | MM HG | | | | ARTERIAL | | | | | + + + + + + | PO2 | 91. | MM HG | | | | ARTERIAL | | | | | + + + + + + | BASE EXCESS | -2. | MM HG | | | | ARTERIAL | | | | | + + + + + + | HCO3 | 22. | mmol/l | | | | ARTERIAL | | | | | + + + + + + | TOTAL CO2 | 23. | mmol/l | | | | ARTERIAL | | | | | + + + + + + | CALC %O2 | 97.2 | % O2 Sat | | | | SAT ARTER | | | | | + + + + + + + + | Specimen | + + | | + + + + + + + | Performing | Address | City/State/Zipcode | Phone Number | | Organization | | | | + + + + + | [facility] | [address] | [place] [address] | | | PATHOLOGY | [address] | | | + + + + + CHEMISTRY TESTS 4 (12/11/1994 4:08 AM PST) + + + + + + | Component | Value | Ref Range | Performed | Pathologist | | | | | At | Signature | + + + + + + | SODIUM,WHOL | 148. | mmol/l | | | | E BLOOD | | | | | + + + + + + | POTASSIUM,W | 4.5 | mmol/l | | | | HOLE BLD | | | | | + + + + + + | GLUCOSE,WHO | 203. (H) | mg/dL | | | | LE BLOOD | | | | | + + + + + + | PH, WHOLE | 7.39 | mg/dL | | | | BLOOD | | | | | + + + + + + | CALC ICA, | 1.27 | mmol/l | | | | WHOLE BLD | | | | | + + + + + + | JUVENAL ICA, | 1.28 | mmol/l | | | | WHOLE BLD | | | | | + + + + + + + + | Specimen | + + | | + + + + + + + | Performing | Address | City/State/Zipcode | Phone Number | | Organization | | | | + + + + + | [facility] | [address] | [place] [address] | | | PATHOLOGY | [address] | | | + + + + + BLOOD GASES, ARTERIAL - LAB (12/11/1994 4:08 AM PST) + + + + + + | Component | Value | Ref Range | Performed | Pathologist | | | | | At | Signature | + + + + + + | PAT TEMP | 36.8 | [facility]. | | | | ARTERIAL | | | | | + + + + + + | FIO2 | 55% | [facility]. | | | | ARTERIAL | | | | | + + + + + + | PH ARTERIAL | 7.4 | [facility] C. | | | + + + + + + | PCO2 | 38. | MM HG | | | | ARTERIAL | | | | | + + + + + + | PO2 | 98. | MM HG | | | | ARTERIAL | | | | | + + + + + + | BASE EXCESS | -0.7 | MM HG | | | | ARTERIAL | | | | | + + + + + + | HCO3 | 23. | mmol/l | | | | ARTERIAL | | | | | + + + + + + | TOTAL CO2 | 25. | mmol/l | | | | ARTERIAL | | | | | + + + + + + | CALC %O2 | 97.6 | % O2 Sat | | | | SAT ARTER | | | | | + + + + + + + + | Specimen | + + | | + + + + + + + | Performing | Address | City/State/Zipcode | Phone Number | | Organization | | | | + + + + + | [facility] | [address] | [place] [address] | | | PATHOLOGY | [address] | | | + + + + + CBC TESTS 2 (12/11/1994 4:08 AM PST) + + + + + + | Component | Value | Ref Range | Performed | Pathologist | | | | | At | Signature | + + + + + + | WHITE CELL | 16.1 (H) | K/CU MM | | | | COUNT | | | | | + + + + + + | RED CELL | 4.4 | M/CU MM | | | | COUNT | | | | | + + + + + + | HEMOGLOBIN | 12.9 | GM/DL | | | + + + + + + | HEMATOCRIT | 39.3 | % | | | + + + + + + | MCV | 89.2 | FL | | | + + + + + + | MCH | 29.4 | PG | | | + + + + + + | MCHC | 32.9 | GM/DL | | | + + + + + + | RDW | 14.4 | % | | | + + + + + + | PLATELET | 119. (L) | K/CU MM | | | | COUNT | | | | | + + + + + + | MPV | 7.8 | FL | | | + + + + + + | NEUTROPHIL | 89. (H) | % | | | | % | | | | | + + + + + + | NEUTROPHIL | FINAL DIFF, SMEAR | % | | | | % | REVIEWED (H) | | | | + + + + + + | LYMPHOCYTE | 4. (L) | % | | | | % | | | | | + + + + + + | MONOCYTE % | 7. | % | | | + + + + + + | EOS % | 0. | % | | | + + + + + + | BASO % | 0. | % | | | + + + + + + | NEUTROPHIL | 14.4 (H) | K/CU MM | | | | # | | | | | + + + + + + | LYMPHOCYTE | 0.6 (L) | K/CU MM | | | | # | | | | | + + + + + + | MONOCYTE # | 1.1 (H) | K/CU MM | | | + + + + + + | EOS # | 0. | K/CU MM | | | + + + + + + | BASO # | 0. | K/CU MM | | | + + + + + + + + | Specimen | + + | | + + + + + + + | Performing | Address | City/State/Zipcode | Phone Number | | Organization | | | | + + + + + | [facility] | [address] | [place] [address] | | | PATHOLOGY | [address] | | | + + + + + CHEMISTRY TESTS 2 (12/11/1994 4:05 AM PST) + + + + + + | Component | Value | Ref Range | Performed | Pathologist | | | | | At | Signature | + + + + + + | CHOLESTEROL | 86. (L) | mg/dL | | | | (LAB) [...] [facility] | [address] | [place] [address] | | | PATHOLOGY | [address] | | | + + + + + CHEMISTRY TESTS 4 (12/11/1994 4:05 AM PST) + + + + + + | Component | Value | Ref Range | Performed | Pathologist | | | | | At | Signature | + + + + + + | SODIUM, | 145. | mmol/l | | | | PLASMA | | | | | | (LAB) | | | | | + + + + + + | POTASSIUM, | 4.6 | mmol/l | | | | PLASMA | | | | | | (LAB) | | | | | + + + + + + | CHLORIDE, | 109. | mmol/l | | | | PLASMA | | | | | | (LAB) | | | | | + + + + + + | TOTAL CO2, | 19. (L) | mmol/l | | | | PLASMA | | | | | | (LAB) | | | | | + + + + + + | BUN, PLASMA | 8. | mg/dL | | | | (LAB) | | | | | + + + + + + | CREATININE | 0.9 | mg/dL | | | | PLASMA | | | | | | (LAB) | | | | | + + + + + + | GLUCOSE, | 187. (H) | mg/dL | | | | PLASMA | | | | | | (LAB) | | | | | + + + + + + | CALCIUM, | 9.8 | mg/dL | | | | PLASMA | | | | | | (LAB) | | | | | + + + + + + | MAGNESIUM,P | 1.9 | mg/dL | | | | LASMA | | | | | + + + + + + | PHOSPHORUS, | 2.8 | mg/dL | | | | PLASMA | | | | | | (LAB) | | | | | + + + + + + | URIC ACID, | 4.4 | mg/dL | | | | PLASMA | | | | | | (LAB) | | | | | + + + + + + | AST(SGOT) | 95. (H) | U/L | | | + + + + + + | ALT (SGPT) | 23. | U/L | | | + + + + + + | ALK PHOS | 31. (L) | U/L | | | + + + + + + | LD TOTAL, | 673. (H) | U/L | | | | PLASMA | | | | | + + + + + + | BILIRUBIN | 0.3 | mg/dL | | | | DIRECT | | | | | + + + + + + | BILIRUBIN | 1.3 (H) | mg/dL | | | | TOTAL | | | | | + + + + + + | TOTAL | 5.7 (L) | GM/DL | | | | PROTEIN, [...] [facility] | [address] | [place], [place] [address] | | | PATHOLOGY | [address] | | | + + + + + CHEMISTRY TESTS 4 (12/10/1994 10:00 PM PST) + + + + + + | Component | Value | Ref Range | Performed | Pathologist | | | | | At | Signature | + + + + + + | SODIUM,WHOL | 146. | mmol/l | | | | E BLOOD | | | | | + + + + + + | POTASSIUM,W | 4.3 | mmol/l | | | | HOLE BLD | | | | | + + + + + + + + | Specimen | + + | | + + + + + + + | Performing | Address | City/State/Zipcode | Phone Number | | Organization | | | | + + + + + | [facility] | [address] | [place] [address] | | | PATHOLOGY | [address] | | | + + + + + BLOOD GASES, ARTERIAL - LAB (12/10/1994 10:00 PM PST) + + + + + + | Component | Value | Ref Range | Performed | Pathologist | | | | | At | Signature | + + + + + + | PAT TEMP | 36.2 | [facility]. | | | | ARTERIAL | | | | | + + + + + + | FIO2 | 60% | [facility]. | | | | ARTERIAL | | | | | + + + + + + | PH ARTERIAL | 7.4 | [facility]. | | | + + + + + + | PCO2 | 36. | MM HG | | | | ARTERIAL | | | | | + + + + + + | PO2 | 111. (H) | MM HG | | | | ARTERIAL | | | | | + + + + + + | BASE EXCESS | -1.5 | MM HG | | | | ARTERIAL | | | | | + + + + + + | HCO3 | 23. | mmol/l | | | | ARTERIAL | | | | | + + + + + + | TOTAL CO2 | 24. | mmol/l | | | | ARTERIAL | | | | | + + + + + + | CALC %O2 | 98.5 | % O2 Sat | | | | SAT ARTER | | | | | + + + + + + + + | Specimen | + + | | + + + + + + + | Performing | Address | City/State/Zipcode | Phone Number | | Organization | | | | + + + + + | [facility] | [address] | [place] [address] | | | PATHOLOGY | [address] | | | + + + + + CHEMISTRY TESTS 4 (12/10/1994 7:45 PM PST) + + + + + + | Component | Value | Ref Range | Performed | Pathologist | | | | | At | Signature | + + + + + + | SODIUM,WHOL | 147. | mmol/l | | | | E BLOOD | | | | | + + + + + + | POTASSIUM,W | 3.9 | mmol/l | | | | HOLE BLD | | | | | + + + + + + + + | Specimen | + + | | + + + + + + + | Performing | Address | City/State/Zipcode | Phone Number | | Organization | | | | + + + + + | [facility] | [phone] | [place] [address] | | | PATHOLOGY | [address] | | | + + + + + BLOOD GASES, ARTERIAL - LAB (12/10/1994 7:45 PM PST) + + + + + + | Component | Value | Ref Range | Performed | Pathologist | | | | | At | Signature | + + + + + + | PAT TEMP | 36.4 | [facility] | | | | ARTERIAL | | | | | + + + + + + | FIO2 | 60% | [facility] | | | | ARTERIAL | | | | | + + + + + + | PH ARTERIAL | 7.38 | [facility] | | | + + + + + + | PCO2 | 41. | MM HG | | | | ARTERIAL | | | | | + + + + + + | PO2 | 84. | MM HG | | | | ARTERIAL | | | | | + + + + + + | BASE EXCESS | -0.4 | MM HG | | | | ARTERIAL | | | | | + + + + + + | HCO3 | 24. | mmol/l | | | | ARTERIAL | | | | | + + + + + + | TOTAL CO2 | 26. | mmol/l | | | | ARTERIAL | | | | | + + + + + + | CALC %O2 | 96.3 | % O2 Sat | | | | SAT ARTER | | | | | + + + + + + + + | Specimen | + + | | + + + + + + + | Performing | Address | City/State/Zipcode | Phone Number | | Organization | | | | + + + + + | [facility] | [address] | [place] [address] | | | PATHOLOGY | [address] | | | + + + + + MICROBIOLOGY TESTS 1 (12/10/1994 6:51 PM PST) + + + + + + | Component | Value | Ref Range | Performed | Pathologist | | | | | At | Signature | + + + + + + | CULTURE | Test Ordered | | | | | RESULT | STERILITY | | | | | | CULTUREOrdering Loc | | | | | | [id number] Set Up | | | | | | Date 12/10Spec Set Up | | | | | | Time 18:52Specimen | | | | | | Type AORTIC | | | | | | VALVE SUTURESReport | | | | | | Status | | | | | | FINALPrelim Result | | | | | | NO GROWTHDate Of | | | | | | Final Re [id number] | | | | + + + + + + + + | Specimen | + + | | + + + + + + + | Performing | Address | City/State/Zipcode | Phone Number | | Organization | | | | + + + + + | [facility] | [address] | [place] [address] | | | PATHOLOGY | [address] | | | + + + + + MICROBIOLOGY TESTS 1 (12/10/1994 6:50 PM PST) + + + + + + | Component | Value | Ref Range | Performed | Pathologist | | | | | At | Signature | + + + + + + | CULTURE | Test Ordered | | | | | RESULT | STERILITY | | | | | | CULTUREOrdering Loc | | | | | | [id number] Set Up | | | | | | Date 12/10Spec Set Up | | | | | | Time 18:50Specimen | | | | | | Type MITRAL | | | | | | VALVE SUTURESReport | | | | | | Status | | | | | | FINALPrelim Result | | | | | | NO GROWTHDate Of | | | | | | Final Re [id number] | | | | + + + + + + + + | Specimen | + + | | + + + + + + + | Performing | Address | City/State/Zipcode | Phone Number | | Organization | | | | + + + + + | [facility] | [address] | [place] [address] | | | PATHOLOGY | [address] | | | + + + + + COAGULATION TESTS 2 (12/10/1994 6:10 PM PST) + + + + + + | Component | Value | Ref Range | Performed | Pathologist | | | | | At | Signature | + + + + + + | PROTHROMBIN | 14.5 (H) | SECONDS | | | | TIME | | | | | + + + + + + | PROTIME | 1.2 | SECONDS | | | | RATIO | | | | | + + + + + + | PROTHROMBIN | 1.52 | INR | | | | INR | | | | | + + + + + + | NOTE: | | INR | | | | | INTENSITY:INR=2.5-3.5;PT | | | | | | R=1.6-1.9 | | | | + + + + + + | APTT | 40.3 (H) | SECONDS | | | + + + + + + + + | Specimen | + + | | + + + + + + + | Performing | Address | City/State/Zipcode | Phone Number | | Organization | | | | + + + + + | [facility] | [address] | [place] [address] | | | PATHOLOGY | [address] | | | + + + + + CBC TESTS 2 (12/10/1994 6:10 PM PST) + + + + + + | Component | Value | Ref Range | Performed | Pathologist | | | | | At | Signature | + + + + + + | WHITE CELL | 13.9 (H) | K/CU MM | | | | COUNT | | | | | + + + + + + | RED CELL | 4.01 | M/CU MM | | | | COUNT | | | | | + + + + + + | HEMOGLOBIN | 12. (L) | GM/DL | | | + + + + + + | HEMATOCRIT | 35.8 (L) | % | | | + + + + + + | MCV | 89.2 | FL | | | + + + + + + | MCH | 30. | PG | | | + + + + + + | MCHC | 33.7 | GM/DL | | | + + + + + + | RDW | 13.5 | % | | | + + + + + + | PLATELET | 162. | K/CU MM | | | | COUNT | | | | | + + + + + + | MPV | 7.5 | FL | | | + + + + + + | NEUTROPHIL | 83. (H) | % | | | | % | | | | | + + + + + + | NEUTROPHIL | PRELIMINARY DIFF, FINAL | % | | | | % | TO FOLLOW (H) | | | | + + + + + + | BANDS % | 17. (H) | % | | | + + + + + + | LYMPHOCYTE | 9. (L) | % | | | | % | | | | | + + + + + + | MONOCYTE % | 8. | % | | | + + + + + + | EOS % | 1. | % | | | + + + + + + | BASO % | 0. | % | | | + + + + + + | NEUTROPHIL | 11.5 (H) | K/CU MM | | | | # | | | | | + + + + + + | LYMPHOCYTE | 1.2 | K/CU MM | | | | # | | | | | + + + + + + | LYMPHOCYTES | 8. (L) | % | | | + + + + + + | MONOCYTE # | 1.1 (H) | K/CU MM | | | + + + + + + | EOS # | 0.1 | K/CU MM | | | + + + + + + | BASO # | 0. | K/CU MM | | | + + + + + + | DIFFERENTIA | 100. | Cells Counted | | | | L, FINAL | | | | | + + + + + + | SEGMENTED | 69. (H) | % | | | | NEUTROPHIL | | | | | + + + + + + | MONOCYTES | 6. | % | | | + + + + + + | PLATELET | NORMAL | % | | | | ESTIMATE | | | | | + + + + + + | HYPOCHROMIA | SLIGHT | % | | | + + + + + + + + | Specimen | + + | | + + + + + + + | Performing | Address | City/State/Zipcode | Phone Number | | Organization | | | | + + + + + | [facility] | [address] | [place] [address] | | | PATHOLOGY | [address] | | | + + + + + CHEMISTRY TESTS 4 (12/10/1994 6:10 PM PST) + + + + + + | Component | Value | Ref Range | Performed | Pathologist | | | | | At | Signature | + + + + + + | BUN, PLASMA | 7. | mg/dL | | | | (LAB) | | | | | + + + + + + | CREATININE | 0.8 | mg/dL | | | | PLASMA [facility] | [address] | [place] [address] | | | PATHOLOGY | [address] | | | + + + + + CHEMISTRY TESTS 4 (12/10/1994 6:10 PM PST) + + + + + + | Component | Value | Ref Range | Performed | Pathologist | | | | | At | Signature | + + + + + + | SODIUM,WHOL | 148. | mmol/l | | | | E BLOOD | | | | | + + + + + + | POTASSIUM,W | 4. | mmol/l | | | | HOLE BLD | | | | | + + + + + + | GLUCOSE,WHO | 123. (H) | mg/dL | | | | LE BLOOD | | | | | + + + + + + | PH, WHOLE | 7.37 | mg/dL | | | | BLOOD | | | | | + + + + + + | CALC ICA, | 1.32 (H) | mmol/l | | | | WHOLE BLD | | | | | + + + + + + | JUVENAL ICA, | 1.33 (H) | mmol/l | | | | WHOLE BLD | | | | | + + + + + + + + | Specimen | + + | | + + + + + + + | Performing | Address | City/State/Zipcode | Phone Number | | Organization | | | | + + + + + | [facility] | [address] | [place] [address] | | | PATHOLOGY | [address] | | | + + + + + BLOOD GASES, ARTERIAL - LAB (12/10/1994 6:10 PM PST) + + + + + + | Component | Value | Ref Range | Performed | Pathologist | | | | | At | Signature | + + + + + + | PAT TEMP | 35. | DEGREES C. | | | | ARTERIAL | | | | | + + + + + + | FIO2 | 100% | DEGREES C. | | | | ARTERIAL | | | | | + + + + + + | PH ARTERIAL | 7.4 | DEGREES C. | | | + + + + + + | PCO2 | 38. | MM HG | | | | ARTERIAL | | | | | + + + + + + | PO2 | 205. (H) | MM HG | | | | ARTERIAL | | | | | + + + + + + | BASE EXCESS | -0.3 | MM HG | | | | ARTERIAL | | | | | + + + + + + | HCO3 | 24. | mmol/l | | | | ARTERIAL | | | | | + + + + + + | TOTAL CO2 | 26. | mmol/l | | | | ARTERIAL | | | | | + + + + + + | CALC %O2 | 99.7 | % O2 Sat | | | | SAT ARTER | | | | | + + + + + + + + | Specimen | + + | | + + + + + + + | Performing | Address | City/State/Zipcode | Phone Number | | Organization | | | | + + + + + | [facility] | [address] | [place] [address] | | | PATHOLOGY | [address] | | | + + + + + TRANSFUSION MEDICINE TESTS (12/09/1994 8:38 PM PST) + + + + + + | Component | Value | Ref Range | Performed | Pathologist | | | | | At | Signature | + + + + + + | TYPE & | SPECIMEN ALREADY DRAWN | | | | | CROSS MATCH | | | | | + + + + + + + + | Specimen | + + | | + + + + + + + | Performing | Address | City/State/Zipcode | Phone Number | | Organization | | | | + + + + + | [facility] | [address] | [place] [address] | | | PATHOLOGY | [address] | | | + + + + + TRANSFUSION MEDICINE TESTS (12/09/1994 8:38 PM PST) + + + + + [...] [facility] | [address] | [place], [place] [address] | | | PATHOLOGY | [address] | | | + + + + + COAGULATION TESTS 2 (12/09/1994 6:00 PM PST) + + + + + + | Component | Value | Ref Range | Performed | Pathologist | | | | | At | Signature | + + + + + + | PROTHROMBIN | 11.8 | SECONDS | | | | TIME | | | | | + + + + + + | PROTIME | 1. | SECONDS | | | | RATIO | | | | | + + + + + + | PROTHROMBIN | 1. | INR | | | | INR | | | | | + + + + + + | APTT | 27.2 | SECONDS | | | + + + + + + + + | Specimen | + + | | + + + + + + + | Performing | Address | City/State/Zipcode | Phone Number | | Organization | | | | + + + + + | [facility] | [address] | [place] [address] | | | PATHOLOGY | [address] | | | + + + + + CBC TESTS 2 (12/09/1994 6:00 PM PST) + + + + + + | Component | Value | Ref Range | Performed | Pathologist | | | | | At | Signature | + + + + + + | WHITE CELL | 8.8 | K/CU MM | | | | COUNT | | | | | + + + + + + | RED CELL | 4.59 | M/CU MM | | | | COUNT | | | | | + + + + + + | HEMOGLOBIN | 14.1 | GM/DL | | | + + + + + + | HEMATOCRIT | 40.5 | % | | | + + + + + + | MCV | 88.3 | FL | | | + + + + + + | MCH | 30.8 | PG | | | + + + + + + | MCHC | 34.8 (H) | GM/DL | | | + + + + + + | RDW | 12.4 | % | | | + + + + + + | PLATELET | 218. | K/CU MM | | | | COUNT | | | | | + + + + + + | MPV | 8.1 | FL | | | + + + + + + | NEUTROPHIL | 46. | % | | | | % | | | | | + + + + + + | LYMPHOCYTE | 41. | % | | | | % | | | | | + + + + + + | MONOCYTE % | 8. | % | | | + + + + + + | EOS % | 4. | % | | | + + + + + + | BASO % | 1. | % | | | + + + + + + | NEUTROPHIL | 4.1 | K/CU MM | | | | # | | | | | + + + + + + | LYMPHOCYTE | 3.6 (H) | K/CU MM | | | | # | | | | | + + + + + + | MONOCYTE # | 0.7 (H) | K/CU MM | | | + + + + + + | EOS # | 0.3 | K/CU MM | | | + + + + + + | BASO # | 0.1 | K/CU MM | | | + + + + + + + + | Specimen | + + | | + + + + + + + | Performing | Address | City/State/Zipcode | Phone Number | | Organization | | | | + + + + + | [facility] | [address] | [place] [address] | | | PATHOLOGY | [address] | | | + + + + + CHEMISTRY TESTS 4 (12/09/1994 6:00 PM PST) + + + + + + | Component | Value | Ref Range | Performed | Pathologist | | | | | At | Signature | + + + + + + | SODIUM, | 141. | mmol/l | | | | PLASMA | | | | | | (LAB) | | | | | + + + + + + | POTASSIUM, | 4.4 | mmol/l | | | | PLASMA | | | | | | (LAB) | | | | | + + + + + + | BUN, PLASMA | 13. | mg/dL | | | | (LAB) | | | | | + + + + + + | CREATININE | 0.8 | mg/dL | | | | PLASMA [facility] | [address] | [place] [address] | | | PATHOLOGY | [address] | | | + + + + + URINALYSIS TESTS (12/09/1994 2:20 AM PST) + + + + + + | Component | Value | Ref Range | Performed | Pathologist | | | | | At | Signature | + + + + + + | COLOR(UR) | YELLOW | | | | + + + + + + | APPEARANCE | CLEAR | | | | + + + + + + | GLUCOSE(UR) | NEG | mg/dL | | | + + + + + + | BILIRUBIN | NEG | mg/dL | | | + + + + + + | KETONES | NEG | mg/dL | | | + + + + + + | SPECIFIC | 1.02 | mg/dL | | | | GRAVITY | | | | | + + + + + + | BLOOD | NEG | mg/dL | | | + + + + + + | PH(UR) | 6. | mg/dL | | | + + + + + + | PROTEIN(LAB | NEG | mg/dL | | | | ) | | | | | + + + + + + | UROBILINOGE | 0.2 | CHRISTINA UNITS | | | | N | | | | | + + + + + + | NITRITES | NEG | CHRISTINA UNITS | | | + + + + + + | LEUKOCYTE | NEG | CHRISTINA UNITS | | | | ESTERASE | | | | | + + + + + + | URINE | MICROSCOPIC NOT | CHRISTINA UNITS | | | | COMMENT1 | INDICATED | | | | + + + + + + + + | Specimen | + + | | + + + + + + + | Performing | Address | City/State/Zipcode | Phone Number | | Organization | | | | + + + + + | [facility] | [address] | [place] [address] | | | PATHOLOGY | [address] | | | + + + + + documented in this encounter Visit Diagnoses Not on filedocumented in this encounter"
--- OUTSIDE RECORDS SUMMARY | ~2019-09-03 | XMS | Encounter Summary ---
Demographics + + + | Address | [address] | | | [place] [address] | + + + | Home Phone [...] Josue Schaeffer | ECON | [address] | | | | | [place] [address] | | + + + + + | Dariana Dowling | ECON | Unknown | | + + + + + Care Team Providers + +------+ + | Care Masking Machine Feeder Name | Role | Phone | + +------+ + | Enoc Lee NP | PCP | | + +------+ + Reason for Visit + + + | Reason | Comments | + + + | Refill Request | lisinopril | + + + Encounter Details +--------+--------+ + + + | Date | Type | Department | Care Team | Description | +--------+--------+ + + + | 11/23/ | Refill | Cardiology [facility] at | Camryn Lewis | Refill Request | | 2012 | | [facility] [address] | Anila CATERING SOUS CHEF [address] | (lisinopril ) | | | | [facility] | [address] [facility], | | | | | [facility], | [place] [address] | | | | | [facility] | [phone] | | | | | [place], [place] | | | | | | [address] | | | | | | [phone] | | | +--------+--------+ + + + [...]
--- OUTSIDE RECORDS SUMMARY | ~2019-09-03 | XMS | Encounter Summary ---
Demographics + + + | Address | [address] | | | [place] [address] | + + + | Home Phone [...] Josue Schaeffer | ECON | [address] | | | | | [place] [address] | | + + + + + | Dariana Dowling | ECON | Unknown | | + + + + + Care Team Providers + +------+ + | Care Door To Door Selling Distributor Name | Role | Phone | + +------+ + | Enoc Lee NP | PCP | | + +------+ + Reason for Visit + + + | Reason | Comments | + + + | Follow-up visit | | + + + Office Visit [...] | | | Provider Per | [address] | | | | | | Patient NO | Street | | | | | | REFERRING | [address] | | | | | | PROVIDER PER | [place] | | | | | | [place] | [address] Phone: | | | | | | | [phone] | | | | | | | Fax: | | | | | | | [phone] | +--------+--------+ + + + + Encounter Details +--------+---------+ + + + | Date | Type | Department | Care Team | Description | +--------+---------+ + + + | 06/07/ | Office | Cardiology [facility] at | Benjie Singh MD | Rheumatic heart | | 2013 | Visit | [facility] [address] | [address] | disease (Primary Dx) | | | | [address] | [address] | | | | | [facility], | [place] [address] | | | | | Building | [phone] | | | | | Floor [place], [place] | | | | | | [address] | | | | | | [phone] | | | +--------+---------+ + + + [...] + + + | Blood Pressure | 170/70 | 06/07/2012 2:41 PM | | | | | PDT | | + + + + + | Pulse | 57 | 06/07/2012 2:41 PM | | | | | PDT | | + + + + + | Temperature | 36.4 C (97.5 F) | 06/07/2012 2:41 PM | | | | | PDT | | + + + + + | Respiratory Rate | - | - | | + + + + + | Oxygen Saturation | 97% | 06/07/2012 2:41 PM | | | | | PDT | | + + + + + | Inhaled Oxygen | - | - | | | Concentration | | | | + + + + + | Weight | 59 kg (130 lb) | 06/07/2012 2:41 PM | | | | | PDT | | + + + + + | Height | 166.4 cm (5' 5.5") | 06/07/2012 2:41 PM | | | | | PDT | | + + + + + | Body Mass Index | 21.3 | 06/07/2012 2:41 PM | | | | | PDT | | + + + + + documented in this encounter Patient Instructions Patient Instructions Benjie Singh Md - 06/07/2012 3:37 PM PDTI would like you to stop o n the third floor for some blood tests today. I would like to switch your diuretic from lasix to bumex. Please stop taking the lasix and start taking the bumex. If your weight does not go down you can take it twice a day. If your weight goes down too much please contact us. I would like to see you in about six months. documented in this encounter Progress Notes Benjie Singh Md - 06/07/2012 3:01 PM PDT CARDIOLOGY RETURN VISIT Maria Alejandra Schaeffer is a 69 y.o. 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 Referring Provider/PCP: Josiah Walls MD Chief Complaint Patient presents with Follow-up visit Cardiac Problem list/risk factors: 1. 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 bumetanide 0.5 mg Oral tablet Take 1 Tab by mouth once daily. CALCIUM + D OR (1200 mg calcium and 500mg vitamin D) 1 tablet daily cholecalciferol, Vitamin D3, (VITAMIN D3) 2,000 unit Oral capsule Take 2,000 Units by m outh once daily. COD LIVER OIL OR 1 capsule daily ezetimibe (ZETIA) 10 mg Oral tablet Take 10 mg by mouth once daily. fluticasone (FLONASE) 50 mcg/Actuation Nasal Mcdaniels, Suspension Instill 2 Sprays into ea ch nostril once daily. fluticasone-salmeterol 100-50 mcg/dose Inhalation Disk with Device Inhale 1 Puff as nee ded. FUROSEMIDE (LASIX ORAL) Take 10 mg by mouth. Garlic 1,000 mg Oral Capsule 2 capsules daily GLUCOSAMINE SULFATE (GLUCOSAMINE ORAL) Take 2,000 mg by mouth. GUAIFENESIN (MUCINEX ORAL) Take 1 Tab by mouth as needed. Lecithin 1,200 mg Oral Tablet, Chewable once daily levothyroxine 50 mcg Oral tablet Take 50 mcg by mouth once daily. lisinopril 5 mg Oral tablet Take 1 Tab by mouth once daily. MECLIZINE HCL (MECLIZINE ORAL) Take by mouth. (10 mg tablet) 1/2 tablet twice daily as needed METHYLSULFONYLMETHANE (MSM ORAL) Take by mouth. POTASSIUM CHLORIDE (KLOR-CON 10 ORAL) Take by mouth. salsalate 500 mg Oral Tablet takes 1 tablet per week sodium chloride 0.65 % Nasal Aerosol, Mcdaniels Instill 2 Sprays into each nostril as neede d. 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 She states that the last 20 days have b een the best she has had in several years. She uses her inhaler a lot for allergies and inder rtness of breath. She has noted some peripheral edema, mostly at the end of the day, and so me abdominal bloating. The abdominal swelling is something new. She also notes that her re sponse to furosemide is not consistent. She reports that her weight has been creeping up. On a typical day she may gain 5 pounds. She is concerned about her kidney function. Her last measured Cr=1.14 and EGFR 48 ml/m. H er blood pressure measured at home is typically 120s/70. She denies orthopnea and PND. Has been doing fine with coumadin. Cardiac Risks: Age and Hypertension Exercise Tolerance: NYHA FC II-III Review of System: See attached flow sheet. Physical Exam: Vitals: BP 170/70 | Pulse 57 | Temp (Src) 36.4 C (97.5 F) (Oral) | Ht 1.664 m (5' 5.5" ) | Wt 58.968 kg (130 lb) | SpO2 97% | BMI 21.30 kg/(m^2) GENERAL: Well appearing, no acute distress. [...] +2 symmetrical. No edema. SKIN: No cyanosis. Echo: Final Impressions: 1. The LV systolic function is normal (EF = 55-60%). 2. The left ventricular cavity size is normal. 3. S/p [facility]. Theo mechanical AVR, well-seated, with normal function, expected gradients, and mild AR (LVOT/AV VTI = 21/55, mean gradient = 14 mm Hg, peak gradient = 31 mm Hg, and peak velocity = 2.9 m/s). 4. S/p [facility] Theo's mechanical MVR, well-positioned, with normal function and expected gradie nts. 5. Normal RV size and systolic function. 6. When compared to prior study, dated 05/21/10, there has been no interval change. Lab Results Component Value Date NA 145 06/07/2012 K 4.3 06/07/2012 CL 110 06/07/2012 BICARB 28 06/07/2012 BUN 23 06/07/2012 CR 0.91 06/07/2012 GLU 94 06/07/2012 CA 9.2 06/07/2012 Recent Labs Basename 06/07/12 1606 AST 27 ALT 22 TBILI 0.3 AP 64 ALB 4.1 TP 7.8 Lab Results Component Value Date WBC 7.3 06/07/2012 HB 13.8 06/07/2012 HCT 41.7 06/07/2012 PLT 177 06/07/2012 MCV 90.9 06/07/2012 RDW 14.4 06/07/2012 Nt-FBT=342 Impression: Maria Alejandra is doing well, better than ever per her report, though she seems to be retaining so me fluid. Her response to furosemide may reflect variable absorption particularly with abdo melisa bloating. Her renal function is OK. Her BNP is mildly elevated. She is likely to fe el a bit better at a slightly lower weight. Plan: 1) Bumex 0.5 mg daily to start. 2) We will titrate the bumex dose based on her response, particularly her weight. Her tar get dry weight is 125 pounds. 3) She will increase the dose of bumex as needed to achieve this weight consistently. 4) Routine follow up in six months. Benjie Singh M.D. Ph.D. Tdocumented in this encounter Plan of Treatment [...] + | EJECTION FRACTION | Routin | 06/07/2012 | | Results for this | | | e | 1:34 PM | | procedure are in the | | | | PDT | | results section. | + +--------+ + + + documented in this encounter Results NT-PRO BNP (06/07/2012 4:06 PM PDT) + +---------+ + + + | Component | Value | Ref Range | Performed | Pathologist | | | | | At | Signature | + +---------+ + + + | NT-PRO BNP | 254 (H) | <125 pg/mL | [facility] | | | | | | LABORATORY | | | | | | SERVICES, | | | | | | CORE | | + +---------+ + + + + + | Specimen | + + | Blood - Blood | + + + + + + + | Performing | Address | City/State/Zipcode | Phone Number | | Organization | | | | + + + + + | [facility] | [address] | [place] [address] | | | SERVICES, CORE | [address] | | | + + + + + COMPLETE METABOLIC SET (NA,K,CL,CO2,BUN,CREAT,GLUC,CA,AST,ALT,BILI TOTAL,ALK PHOS,ALB,PROT TOTAL) (06/07/2012 4:06 PM PDT) + +---------+ + + + | Component | Value | Ref Range | Performed | Pathologist | | | | | At | Signature | + +---------+ + + + | GLUCOSE, | 94 | 60 - 99 mg/dL | [facility] | | | PLASMA | | | LABORATORY | | | (LAB) | | | SERVICES, | | | | | | CORE | | + +---------+ + + + | BUN, PLASMA | 23 (H) | 6 - 20 mg/dL | [facility] | | | (LAB) | | | LABORATORY | | | | | | SERVICES, | | | | | | CORE | | + +---------+ + + + | CREATININE | 0.91 | 0.60 - 1.10 | [facility] | | | PLASMA | | mg/dL | LABORATORY | | | (LAB) | | | SERVICES, | | | | | | CORE | | + +---------+ + + + | EGFR | >60 | >60 mL/min | [facility] | | | - | | | LABORATORY | | | LEBANESE | | | SERVICES, | | | | | | CORE | | + +---------+ + + + | EGFR NON | >60 | >60 mL/min | [facility] | | | -KERRI | | | LABORATORY | | | RICAN | | | SERVICES, | | | | | | CORE | | + +---------+ + + + | SODIUM, | 145 | 136 - 145 | [facility] | | | PLASMA | | mmol/L | LABORATORY | | | (LAB) | | | SERVICES, | | | | | | CORE | | + +---------+ + + + | POTASSIUM, | 4.3 | 3.4 - 5.0 | [facility] | | | PLASMA | | mmol/L | LABORATORY | | | (LAB) | | | SERVICES, | | | | | | CORE | | + +---------+ + + + | CHLORIDE, | 110 (H) | 97 - 108 mmol/L | [facility] | | | PLASMA | | | LABORATORY | | | (LAB) | | | SERVICES, | | | | | | CORE | | + +---------+ + + + | TOTAL CO2, | 28 | 21 - 32 mmol/L | [facility] | | | PLASMA | | | LABORATORY | | | (LAB) | | | SERVICES, | | | | | | CORE | | + +---------+ + + + | CALCIUM, | 9.2 | 8.6 - 10.2 | [facility] | | | PLASMA | | mg/dL | LABORATORY | | | (LAB) | | | SERVICES, | | | | | | CORE | | + +---------+ + + + | BILIRUBIN | 0.3 | 0.3 - 1.2 mg/dL | [facility] | | | TOTAL | | | LABORATORY | | | | | | SERVICES, | | | | | | CORE | | + +---------+ + + + | TOTAL | 7.8 | 6.4 - 8.2 g/dL | [facility] | | | PROTEIN, | | | LABORATORY | | | PLASMA | | | SERVICES, | | | (LAB) | | | CORE | | + +---------+ + + + | ALBUMIN, | 4.1 | 3.5 - 4.7 g/dL | [facility] | | | PLASMA | | | LABORATORY | | | (LAB) | | | SERVICES, | | | | | | CORE | | + +---------+ + + + | ALK PHOS | 64 | 53 - 141 U/L | [facility] | | | | | | LABORATORY | | | | | | SERVICES, | | | | | | CORE | | + +---------+ + + + | AST(SGOT) | 27 | 15 - 41 U/L | [facility] | | | | | | LABORATORY | | | | | | SERVICES, | | | | | | CORE | | + +---------+ + + + | ALT (SGPT) | 22 | 12 - 60 U/L | [facility] | | | | | | LABORATORY | | | | | | SERVICES, | | | | | | CORE | | + +---------+ + + + | ANION | 6 | 4 - 11 mmol/L | [facility] | | | GAP(ALB | | | LABORATORY | | | CORRECTED) | | | SERVICES, | | | | | | CORE | | + +---------+ + + + | POTASSIUM | No Hemo | | [facility] | | | CMNT | | | LABORATORY | | | | | | SERVICES, | | | | | | CORE | | + +---------+ + + + | BILI T CMNT | No Hemo | | [facility] | | | | | | LABORATORY | | | | | | SERVICES, | | | | | | CORE | | + +---------+ + + + | AST CMNT | No Hemo | | [facility] | | | | | | LABORATORY | | | | | | SERVICES, | | | | | | CORE | | + +---------+ + + + | ANION GAP | 7 | mmol/L | [facility] | | | | | | LABORATORY | | | | | | SERVICES, | | | | | | CORE | | + +---------+ + + + + + | Specimen | + + | Blood - Blood | + + + + + | Narrative | Performed At | + + + | GFR is estimated using the MDRD equation recommended by the | [facility] | | National Kidney Disease Education Program. Estimated GFR | LABORATORY | | Interpretive Information: <60 mL/min/1.73 sq m | [place], CORE | | Chronic Kidney Disease <15 mL/min/1.73 sq m | | | Kidney Failure Estimated GFR greater that 60 mL/min/1.73 sq m is of | | | limited clinical value. The MDRD equation is not valid in the | | | following situations: - Patients under 18 years of age - Severe | | | malnutrition or obesity - Vegetarian diet - Rapidly changing kidney | | | function | | + + + + + + + + | Performing | Address | City/State/Zipcode | Phone Number | | Organization | | | | + + + + + | [facility] | [address] | [place] [address] | | | STEVEN LEHMAN | [address] | | | + + + + + 12 LEAD ECG (06/07/2012 3:34 PM PDT) [...] + + + | Please click | [facility] | | on view image for the detailed interpretation from [facility] results. | CARDIOLOGY | + + + + + + + + | Performing | Address | City/State/Zipcode | Phone Number | | Organization | | | | + + + + + | [facility] | [address] | [place], [place] | | | CARDIOLOGY | [address] | [address] | | + + + + + EJECTION FRACTION (06/07/2012 1:34 PM PDT) + + + + + + | Component | Value | Ref Range | Performed | Pathologist | | | | | At | Signature | + + + + + + | EJECTION | 55 - 60%Comment: EF | | [facility] | | | FRACTION | Recorded from | | OF | | | | Transthoracic | | CARDIOLOGY | | | | Echocardiogram | | | | + + + + + + + + | Specimen | + + | | + + + + + + + | Performing | Address | City/State/Zipcode | Phone Number | | Organization | | | | + + + + + | [facility] | [address] | [place], [place] | | | CARDIOLOGY | [address] | [address] | | + + + + + documented in this encounter Visit Diagnoses + + | Diagnosis | + + | Rheumatic heart disease - Primary Rheumatic heart disease, unspecified | + + documented in this encounter
--- OUTSIDE RECORDS SUMMARY | ~2019-09-03 | XMS | Encounter Summary ---
Demographics + + + | Address | [address] | | | [place] [address] | + + + | Home Phone | | + + + | Preferred Language | Unknown | + + + | Marital Status | | + + + | Worship Affiliation | VANDA | + + + [...] | | | | | [place] [address] | | + + + + + | Dariana Dowling | ECON | Unknown | | + + + + + Care Team Providers + +------+ + | Care Waste Water Or Water Plant Operator Name | Role | Phone | + +------+ + PCP | Unavailable | + +------+ + Encounter Details +--------+ + + + + | Date | Type | Department | Care Team | Description | +--------+ + + + + | 06/24/ | Results | | Other, Faculty | | | 2000 | Only | | [phone] | | +--------+ + + + + [...] | + +--------+ + + + | NM THYROID | Routin | 06/24/2000 | | Results for this | | RADIOPHARMACEUTICAL | e | 3:29 PM | | procedure are in the | | THERAPY HYPER | | PDT | | results section. | + +--------+ + + + | THYROID UPTAKE AND | Routin | 06/24/2000 | | Results for this | | SCAN | e | 1:56 PM | | procedure are in the | | | | PDT | | results section. | + +--------+ + + + documented in this encounter Results NM THYROID RX HYPER INT W EVL (06/24/2000 3:29 PM PDT) + + + + + + | Component | Value | Ref Range | Performed | Pathologist | | | | | At | Signature | + + + + + + | NM THYROID | Radiologist 1: BC, | | | | | RX HYPER | JORDY Carcamo JR., | | | | | INT W EVL | M.D.I-131 THERAPY FOR | | | | | | THYROTOXICOSIS: | | | | | | 06/24/2000 Dictated | | | | | | 06/24/2000 CLINICAL | | | | | | HISTORY: | | | | | | Hyperthyroidism, scan | | | | | | suggests Graves' | | | | | | disease. FINDINGS: | | | | | | The results of the | | | | | | patient's I-123 uptake | | | | | | and scan werediscussed | | | | | | with Dr. Iqbal. Therapy | | | | | | with 10 mCi was decided | | | | | | upon, andafter informed | | | | | | consent on an empty | | | | | | stomach, the patient | | | | | | received | | | | | | oraladministration of | | | | | | 10.7 mCi I-131 by | | | | | | capsule. She has | | | | | | givenunderstanding of | | | | | | radiation precautions | | | | | | and will maintain an | | | | | | emptystomach for two | | | | | | hours after therapy. | | | | | | IMPRESSION: I-131 | | | | | | therapy with 10.7 mCi | | | | | | for thyrotoxic state. | | | | | | END OF IMPRESSION: | | | | + + + + + + + + | Specimen | + + | | + + + + + | Narrative | Performed At | + + + | Ordered by MAYRA GARZA | | + + + + +---------+ + + | Performing | Address | City/State/Zipcode | Phone Number | | Organization | | | | + +---------+ + + | [facility] DEPARTMENT OF | | | | | RADIOLOGY | | | | + +---------+ + + THYROID UPTAKE AND SCAN (06/24/2000 1:56 PM PDT) + + + + + + | Component | Value | Ref Range | Performed | Pathologist | | | | | At | Signature | + + + + + + | THYROID, | Radiologist 1: BC, | | | | | 123I, | JORDY Carcamo JR., | | | | | UPTAKE & | M.D.I-123 UPTAKE AND | | | | | SCAN | THYROID SCAN: 06/23 | | | | | | to Dictated | | | | | | 06/24/2000 CLINICAL | | | | | | HISTORY: Patient with | | | | | | symptoms of | | | | | | hyperthyroidism, | | | | | | pleaseevaluate for | | | | | | uptake and distribution | | | | | | of tracer within the | | | | | | thyroidgland. FINDINGS: | | | | | | On June 23, the patient | | | | | | received 379 uCi of | | | | | | I-123 on anempty | | | | | | stomach. Twenty-four | | | | | | hours later she returned | | | | | | and smooth,homogeneous | | | | | | images were obtained of | | | | | | both lobes of the gland, | | | | | | with 81%calculated | | | | | | uptake. The findings are | | | | | | highly suggestive of | | | | | | Graves'disease. Therapy | | | | | | is being discussed on | | | | | | this individual. | | | | | | IMPRESSION: Iodine | | | | | | uptake and scan | | | | | | consistent with Graves' | | | | | | disease with 81% | | | | | | opigal09 hour uptake. | | | | | | END OF IMPRESSION: | | | | + + + + + + + + | Specimen | + + | | + + + + + | Narrative | Performed At | + + + | Ordered by MAYRA GARZA | | + + + + +---------+ + + | Performing | Address | City/State/Zipcode | Phone Number | | Organization | | | | + +---------+ + + | [facility] DEPARTMENT OF | | | | | RADIOLOGY | | | | + +---------+ + + documented in this encounter Visit Diagnoses Not on filedocumented in this encounter"
--- OUTSIDE RECORDS SUMMARY | ~2019-09-03 | XMS | Encounter Summary ---
Demographics + + + | Address | [address] | | | [place] [address] | + + + | Home Phone [...] Josue Schaeffer | ECON | [address] | | | | | [place] [address] | | + + + + + | Dariana Dowling | ECON | Unknown | | + + + + + Care Team Providers + +------+ + | Care Pants Presser Automatic Name | Role | Phone | + +------+ + | Enoc Lee NP | PCP | | + +------+ + Encounter Details +--------+------+ + + + | Date | Type | Department | Care Team | Description | +--------+------+ + + + | 06/07/ | Lab | Laboratory at [facility] | | Rheumatic heart | | 2012 | | [address] | | disease | | | | [facility] | | | | | and Healing, | | | | | | [address] | | | | | | [place], [place] | | | | | | [address] | | | | | | [phone] | | | +--------+------+ + + + [...] | + +--------+ + + + | NT-PRO BNP | Routin | 06/07/2012 | Rheumatic heart | Results for this | | | e | 4:06 PM | disease | procedure are in the | | | | PDT | | results section. | + +--------+ + + + | CBC ONLY | Routin | 06/07/2012 | Rheumatic heart | Results for this | | | e | 4:06 PM | disease | procedure are in the | | | | PDT | | results section. | + +--------+ + + + | COMPLETE METABOLIC | Routin | 06/07/2012 | Rheumatic heart | Results for this | | SET | e | 4:06 PM | disease | procedure are in the | | (NA,K,CL,CO2,BUN,CRE | | PDT | | results section. | | AT,GLUC,CA,AST,ALT,B | | | | | | DAGMAR TOTAL,ALK | | | | | | PHOS,ALB,PROT TOTAL) | | | | | + +--------+ + + + | CBC ONLY | Routin | 06/07/2012 | Rheumatic heart | Results for this | | | e | 4:06 PM | disease | procedure are in the | | | | PDT | | results section. | + +--------+ + + + documented in this encounter Results CBC (06/07/2012 4:06 PM PDT) + + + + + + | Component | Value | Ref Range | Performed | Pathologist | | | | | At | Signature | + + + + + + | WBC COUNT | 7.3 | 4.4 - 11.0 K/cu | [facility] | | | | | mm | LABORATORY | | | | | | SERVICES, | | | | | | CORE | | + + + + + + | RED CELL | 4.58 | 4.00 - 5.20 | [facility] | | | COUNT | | M/cu mm | LABORATORY | | | | | | SERVICES, | | | | | | CORE | | + + + + + + | HEMOGLOBIN | 13.8 | 12.0 - 16.0 | [facility] | | | | | g/dL | LABORATORY | | | | | | SERVICES, | | | | | | CORE | | + + + + + + | HEMATOCRIT | 41.7 | 36.0 - 46.0 % | [facility] | | | | | | LABORATORY | | | | | | SERVICES, | | | | | | CORE | | + + + + + + | MCV | 90.9 | 80.0 - 96.0 fL | [facility] | | | | | | LABORATORY | | | | | | SERVICES, | | | | | | CORE | | + + + + + + | MCHC | 33.2 (L) | 33.4 - 35.5 | [facility] | | | | | g/dL | LABORATORY | | | | | | SERVICES, | | | | | | CORE | | + + + + + + | RDW | 14.4 | 11.5 - 15.0 % | [facility] | | | | | | LABORATORY | | | | | | SERVICES, | | | | | | CORE | | + + + + + + | PLATELET | 177 | 150 - 400 K/cu | [facility] | | | COUNT | | mm | LABORATORY | | | | | | SERVICES, | | | | | | CORE | | + + + + + + + + | Specimen | + + | Blood - Blood | + + + + + + + | Performing | Address | City/State/Zipcode | Phone Number | | Organization | | | | + + + + + | [facility] | [address] | [place] [address] | | | SERVICES, CORE | [address] | | | + + + + + NT-PRO BNP (06/07/2012 4:06 PM PDT) + [...] [facility] | [address] | [place] [address] | | | SERVICES, CORE | [address] | | | + + + [...] | | | LABORATORY | | | URUGUAYAN | | | SERVICES, | | | [...] Interpretive Information: <60 mL/min/1.73 sq m | SERVICES, CORE | | Chronic Kidney Disease <15 [...] + + + + + | [facility] | [address] | [place] [address] | | | SERVICES, CORE | [address] | | | + + + + + documented in this encounter Visit Diagnoses + + | Diagnosis | + + | Rheumatic heart disease Rheumatic heart disease, unspecified | + + documented in this encounter"
--- OUTSIDE RECORDS SUMMARY | ~2019-09-03 | XMS | Encounter Summary ---
Demographics + + + | Address | [address] | | | [place] [address] | + + + | Home Phone [...] + + | Author | [facility] | + + + | Organization | [facility] | + + + | Address | Unknown | + + + | Phone | Unavailable | + + + Support + + + + + | Name | Relationship | Address | Phone | + + + + + | Josue Schaeffer | ECON | [address] | | | | | [place] [address] | | + + + + + | Dariana Dowling | ECON | Unknown | | + + + + + Care Team Providers + +------+ + | Care Mica Parts Sprayer Name | Role | Phone | + +------+ + | Josiah Walls MD | PCP | | + +------+ + Encounter Details +--------+ + + + + | Date | Type | Department | Care Team | Description | +--------+ + + + + | 01/17/ | Abstract | Cardiology CAROL at | Emanuel Morgan | | | 2011 | | [facility] [address] | | | | | | Ivana [facility] | | | | | | Health and Healing, | | | | | | [facility] | | | | | | [place], [place] | | | | | | [address] | | | | | | [phone] | | | +--------+ + + + [...]
--- OUTSIDE RECORDS SUMMARY | ~2019-09-03 | XMS | Encounter Summary ---
Demographics + + + | Address | [address] | | | [place] [address] | + + + | Home Phone | | + + + | Preferred Language | Unknown | + + + | Marital Status | | + + + | Anabaptism Affiliation | VANDA | + + + [...] Josue Schaeffer | ECON | [address] | | | | | [place] [address] | | + + + + + | Dariana Dowling | ECON | Unknown | | + + + + + Care Team Providers + +------+ + | Care Employee Relation Manager Name | Role | Phone | [...] + + + + | 10/12/ | Telephone | Cardiology CAROL at | Camryn Lewis | Other | | 2012 | | [facility] [address] | [address] | | | | | [facility] | [address] [place], | | | | | Health and Healing, | [place] [address] | | | | | [facility] | [phone] | | | | | [place], [place] | | | | | | [address] | | | | | | [phone] | | | +--------+ + + + [...]
--- OUTSIDE RECORDS SUMMARY | ~2019-09-03 | XMS | Encounter Summary ---
Demographics + + + | Address | [address] | | | [place] [address] | + + + | Home Phone [...] Josue Schaeffer | ECON | [address] | | | | | [place] [address] | | + + + + + | Dariana Dowling | ECON | Unknown | | + + + + + Care Team Providers + +------+ + | Care Night Club Manager Name | Role | Phone | + +------+ + PCP | Unavailable | + +------+ + Encounter Details +--------+ + + + + | Date | Type | Department | Care Team | Description | +--------+ + + + + | 08/12/ | Results | Endocrinology, | Oralia Self, | | | 2000 | Only | Diabetes and | MD Felicita Dumas | | | | | Clinical Nutrition | [address] | | | | | [address] | [place], [place] | | | | | Loop Mailcode: [id number] | [address] | | | | | Outpatient Clinic | [phone] | | | | | Building [place], | | | | | | [place] [address] | | | | | | [phone] | | | +--------+ + + + [...] + | FREE T4 | Routin | 08/12/2000 | | Results for this | | | e | 11:45 AM | | procedure are in the | | | | PDT | | results section. | + +--------+ + + + | TSH | Routin | 08/12/2000 | | Results for this | | | e | 11:45 AM | | procedure are in the | | | | PDT | | results section. | + +--------+ + + + documented in this encounter Results FREE T4, SERUM (08/12/2000 11:45 AM PDT) + +---------+ + + + | Component | Value | Ref Range | Performed | Pathologist | | | | | At | Signature | + +---------+ + + + | FREE T4, | 0.5 (L) | 0.7 - 1.8 ng/dL | | | | SERUM | | | | | + +---------+ + + + + + | Specimen | + + | | + + + + + + + | Performing | Address | City/State/Zipcode | Phone Number | | Organization | | | | + + + + + | [facility] | [address] | [place] [address] | | | LABORATORY | | | | + + + + + TSH-THYROID STIM HORMONE (08/12/2000 11:45 AM PDT) + + + + + + | Component | Value | Ref Range | Performed | Pathologist | | | | | At | Signature | + + + + + + | TSH | 33.00 (H) | 0.28 - 5.00 | | | | | | uIU/ml | | | + + + + + + + + | Specimen | + + | | + + + + + + + | Performing | Address | City/State/Zipcode | Phone Number | | Organization | | | | + + + + + | [facility] | [address] | [place] [address] | | | LABORATORY | | | | + + + + + documented in this encounter Visit Diagnoses Not on filedocumented in this encounter"
--- OUTSIDE RECORDS SUMMARY | ~2019-09-03 | XMS | Encounter Summary ---
Demographics + + + | Address | [address] | | | [place] [address] | + + + | Home Phone | | + + + | Preferred Language | Unknown | + + + | Marital Status | | + + + | Mosque Affiliation | VANDA | + + + | Race | White | + + + | Ethnic Group | Not or | + + + Author + + + | Author | [facility] | + + + | Organization | [facility] | + + + | Address | Unknown | + + + | Phone | Unavailable | + + + Support + + + + + | Name | Relationship | Address | Phone | + + + + + | Josue Schaeffer | ECON | [address] | | | | | [place] [address] | | + + + + + | Dariana Dowling | ECON | Unknown | | + + + + + Care Team Providers + +------+ + | Care Manager Line Name | Role | Phone | + +------+ + | Josiah Walls MD | PCP | | + +------+ + Reason for Visit + + + | Reason | Comments | + + + | Chest pain | | + + + Encounter Details +--------+ + + + + | Date | Type | Department | Care Team | Description | +--------+ + + + + | 12/31/ | Emergency | [facility] Emergency | | | | 2011 - | | Department [address] | | | | | [address] | | | | 01/01/ | | [facility] | | | | 2011 | | [place], [place] | | | | | | [address] | | | | | | [phone] | | | +--------+ + + + [...] Puffs every | 1 | 2 | 01/07/20 | | | mcg/Actuation | four hours [...] daily. | | | | | | Harmans, Suspension | | | | | | + + + +---------+ + + | Garlic 1,000 mg | 2 capsules daily | | 0 | | | | Oral Capsule | | | | | | + + + +---------+ + + | MARTHAAIFENESIN | Take 1 Tab by mouth | [...] | | 10 | | | Aerosol, Harmans | needed. | | | | | [...]
--- OUTSIDE RECORDS SUMMARY | ~2019-09-03 | XMS | Encounter Summary ---
Demographics + + + | Address | [address] | | | [place] [address] | + + + | Home Phone | | + + + | Preferred Language | Unknown | + + + | Marital Status | | + + + | Episcopalian Affiliation | VANDA | + + + | Race | White | + + + | Ethnic Group | Not or | + + + Author + + + | Author | [facility] | + + + | Organization | [facility] | + + + | Address | Unknown | + + + | Phone | Unavailable | + + + Support + + + + + | Name | Relationship | Address | Phone | + + + + + | Josue Schaeffer | ECON | [address] | | | | | [place] [address] | | + + + + + | Dariana Dowling | ECON | Unknown | | + + + + + Care Team Providers + +------+ + | Care Journeyman Patternmaker Name | Role | Phone | + +------+ + PCP | Unavailable | + +------+ + Encounter Details +--------+ + + + + | Date | Type | Department | Care Team | Description | +--------+ + + + + | 05/19/ | Results | Cardiology - | Emanuel Morgan, | | | 2000 | Only | General [address] | | | | | | [address] | | | | | | Mailcode: [id number] | | | | | | [address] | | | | | | [address] [place], | | | | | | [place] [address] | | | | | | [phone] | | | +--------+ + + + [...] X-RAY CHEST 2 VIEW | Routin | 06/23/2000 | | Results for this | | | e | 2:41 PM | | procedure are in the | | | | PDT | | results section. | + +--------+ + + + | X-RAY CHEST 2 VIEW | Routin | 05/19/2000 | | Results for this | | | e | 7:54 AM | | procedure are in the | | | | PDT | | results section. | + +--------+ + + + | COAG MASTER PANEL | Routin | 05/18/2000 | | Results for this | | | e | 2:05 PM | | procedure are in the | | | | PDT | | results section. | + +--------+ + + + | INR | Routin | 05/18/2000 | | Results for this | | | e | 2:05 PM | | procedure are in the | | | | PDT | | results section. | + +--------+ + + + documented in this encounter Results CHEST 2 VIEW (06/23/2000 2:41 PM PDT) + + + + + + | Component | Value | Ref Range | Performed | Pathologist | | | | | At | Signature | + + + + + + | CHEST, 2 | Radiologist 1: VIANEY, | | | | | [place] | Kt CARRERA-Radiologist | | | | | STEREO | 2: LEEROY SHAH, | | | | | | KtCHEST: 06/23/2000 | | | | | | Dictated 06/24/2000 | | | | | | COMPARISON: Chest | | | | | | dated 19 May 2000. | | | | | | FINDINGS: Median | | | | | | sternotomy wires are | | | | | | again noted. There is | | | | | | evidenceof left atrial | | | | | | enlargement with | | | | | | prominence of the atrial | | | | | | appendagealong the left | | | | | | lateral cardiac margin. | | | | | | There has been | | | | | | intervaldecrease in the | | | | | | bilateral pleural | | | | | | effusions. There is no | | | | | | focal area ofcollapse or | | | | | | consolidation, and no | | | | | | pneumothorax. There is | | | | | | persistentcardiac | | | | | | enlargement. IMPRESSION: | | | | | | 1. Interval decrease in | | | | | | bilateral pleural | | | | | | effusions. 2. Probable | | | | | | left atrial enlargement | | | | | | with persistent | | | | | | cardiomegaly. END OF | | | | | | IMPRESSION: | | | | + + + + + + + + | Specimen | + + | | + + + +---------+ + + | Performing | Address | City/State/Zipcode | Phone Number | | Organization | | | | + +---------+ + + | [facility] DEPARTMENT OF | | | | | RADIOLOGY | | | | + +---------+ + + CHEST 2 VIEW (05/19/2000 7:54 AM PDT) + + + + + + | Component | Value | Ref Range | Performed | Pathologist | | | | | At | Signature | + + + + + + | CHEST, 2 | Radiologist 1: VIANEY, | | | | | [place] | Kt CARRERACHEST: | | | | | STEREO | 05/19/2000 Dictated | | | | | | 05/20/2000 COMPARISON: | | | | | | 03/28/97. FINDINGS: | | | | | | Sternotomy wires remain | | | | | | in place. There are | | | | | | new bilateralpleural | | | | | | effusions, right greater | | | | | | than left. There is | | | | | | no definitepulmonary | | | | | | edema. There is | | | | | | cardiomegaly as before. | | | | | | There is nopneumothorax. | | | | | | IMPRESSION: 1. | | | | | | Bilateral pleural | | | | | | effusions, right greater | | | | | | than left. 2. | | | | | | Cardiomegaly. END OF | | | | | | IMPRESSION: | | | | | | | [...] | | | + +---------+ + + PROTHROMBIN TIME (05/18/2000 2:05 PM PDT) + + + + + + | Component | Value | Ref Range | Performed | Pathologist | | | | | At | Signature | + + + + + + | INR | 4.20 (H)Comment: | 0.98 - 1.08 INR | [...] | + + + + + | [facility] DEPARTMENT OF | [address] | [place] [address] | | | PATHOLOGY | [address] | | | + + + + + | [place] DEPARTMENT OF | [address] | [place] [address] | | | PATHOLOGY | [address] | | | + + + + + SUKHJINDER MASTER PANEL (05/18/2000 2:05 PM PDT) + + + + + + | Component | Value | Ref Range | Performed | Pathologist | | | | | At | Signature | + + + + + + | INR | 4.20 (H)Comment: | 0.98 - 1.08 INR | [facility] | | | | [...] | + + + + + | [facility] | [address] | [place] [address] | | | PATHOLOGY | [address] | | | + + + + + | [facility] | [address] | [place] [address] | | | PATHOLOGY | [address] | | | + + + + + documented in this encounter Visit Diagnoses Not on filedocumented in this encounter"
--- OUTSIDE RECORDS SUMMARY | ~2019-09-03 | XMS | Encounter Summary ---
Demographics + + + | Address | [address] | | | [place] [address] | + + + | Home Phone [...] Josue Schaeffer | ECON | [address] | | | | | [place] [address] | | + + + + + | Dariana Dowling | ECON | Unknown | | + + + + + Care Team Providers + +------+ + | Care Director Of Premium Seat Sales Name | Role | Phone | + +------+ + | Josiah Walls MD | PCP | | + +------+ + Reason for Referral PROC - Outpatient Surgery (Routine) +--------+--------+ + + + + | Status | Reason | Specialty | Diagnoses / | Referred By | Referred To | | | | | Procedures | Contact | Contact | +--------+--------+ + + + + | Closed | | Cardiac | Diagnoses | Pantely, | Car Cardiac | | | | Catheterizati | Syncope | MD Emanuel | Armored Car Driver | | | | on | Procedures | [address] | [address] | | | | | CONSULT TO | Ave | [facility] | | | | | CARDIAC EP | [place], [place] | [address] [place] | | | | | PROCEDURE | [address] | [facility], | | | | | (CARDIOLOGIS | | Floor | | | | | T ONLY) | | [place], [place] | | | | | | | [address] | | | | | | | Phone: | | | | | | | [phone] | | | | | | | Fax: | | | | | | | [phone] | +--------+--------+ + + + + Encounter Details +--------+ + + + + | Date | Type | Department | Care Team | Description | +--------+ + + + + | 09/27/ | Telephone | Cardiology General | Emanuel Morgan, | | | 2009 | | at [facility] [address] | | | | | | [address] [place] for | | | | | | Health and Healing, | | | | | | Building | | | | | | Floor [place], [place] | | | | | | [address] | | | | | | [phone] | | | +--------+ + + + [...] + | Diagnosis | + + | Syncope - Primary Syncope and collapse | + + documented in this encounter"
--- OUTSIDE RECORDS SUMMARY | ~2019-09-03 | XMS | Encounter Summary ---
Demographics + + + | Address | [address] | | | [place] [address] | + + + | Home Phone | | + + + | Preferred Language | Unknown | + + + | Marital Status | | + + + | Baptism Affiliation | VANDA | + + + [...] | | | | | [place] [address] | | + + + + + | Dariana Dowling | ECON | Unknown | | + + + + + Care Team Providers + +------+ + | Care Senior Clinical Data Coordinator Name | Role | Phone | + +------+ + PCP | Unavailable | + +------+ + Encounter Details +--------+ + + + + | Date | Type | Department | Care Team | Description | +--------+ + + + + | 03/28/ | Results | | Other, Faculty | | | 1997 | Only | | [phone] | | +--------+ + + + + [...] X-RAY CHEST 2 VIEW | Routin | 03/28/1997 | | Results for this | | | e | 1:50 PM | | procedure are in the | | | | PST | | results section. | + +--------+ + + + | CT HEAD WO CONTRAST | Routin | 03/28/1997 | | Results for this | | | e | 12:00 PM | | procedure are in the | | | | PST | | results section. | + +--------+ + + + documented in this encounter Results CHEST 2 VIEW (03/28/1997 1:50 PM PST) + + + + + + | Component | Value | Ref Range | Performed | Pathologist | | | | | At | Signature | + + + + + + | CHEST, 2 | Radiologist 1: VIANEY, | | | | | VIEWS [place] | Sri CARRERA.CHEST, TWO | | | | | STEREO | VIEWS: 03-28-97 | | | | | | | | | | | | Dictated: | | | | | | 03-29-97 Comparison is | | | | | | made with study of | | | | | | 07-28-95. FINDINGS: | | | | | | Sternotomy wires | | | | | | remain in place. There | | | | | | is no pleuraleffusion. | | | | | | There is no pulmonary | | | | | | edema. There is no | | | | | | evidence forpneumonia. | | | | | | There is mild | | | | | | cardiomegaly. | | | | | | IMPRESSION: Mild | | | | | | cardiomegaly with no | | | | | | evidence for pulmonary | | | | | | edema or pneumonia. END | | | | | | OF IMPRESSION: | | | | + + + + + + + + | Specimen | + + | | + + + + + | Narrative | Performed At | + + + | Ordered by SHANNON DISLA | | + + + + +---------+ + + | Performing | Address | City/State/Zipcode | Phone Number | | Organization | | | | + +---------+ + + | [facility] DEPARTMENT OF | | | | | RADIOLOGY | | | | + +---------+ + + CT HEAD WO CONTRAST (03/28/1997 12:00 PM PST) + + + + + + | Component | Value | Ref Range | Performed | Pathologist | | | | | At | Signature | + + + + + + | CT HEAD WO | Radiologist 1: KRYSTA, | | | | | CONTRAST | NANCY WADE-Radiologist | | | | | | 2: BRIAN DONALDSON V., | | | | | | M.D.CT SCAN OF THE | | | | | | BRAIN, WITHOUT CONTRAST: | | | | | | 03-28-97 | | | | | | DICTATED: 03-29-97 | | | | | | CLINICAL HISTORY: | | | | | | 56-year-old. Rule out | | | | | | bleed. COMPARISON: | | | | | | None. PROCEDURE: | | | | | | Multiple axial slices | | | | | | were obtained at 5 | | | | | | millimetersthrough the | | | | | | posterior fossa and 10 | | | | | | millimeter through the | | | | | | brain.Brain, subdural | | | | | | and bone windows were | | | | | | photographed. FINDINGS: | | | | | | There is no acute | | | | | | hemorrhage, infarct, | | | | | | tumor, midlineshift. | | | | | | The ventricles and | | | | | | basal cisterns are | | | | | | unremarkable.Incidental | | | | | | surgical change of both | | | | | | maxillary sinuses are | | | | | | visualized.Incidental | | | | | | sinus disease is seen. | | | | | | IMPRESSION: No CT | | | | | | evidence of intracranial | | | | | | hemorrhage or infarct. | | | | | | END OF IMPRESSION: | | | | + + + + + + + + | Specimen | + + | | + + + + + | Narrative | Performed At | + + + | Ordered by SHANNON DISLA | | + + + + +---------+ + + | Performing | Address | City/State/Zipcode | Phone Number | | Organization | | | | + +---------+ + + | [facility] DEPARTMENT OF | | | | | RADIOLOGY | | | | + +---------+ + + documented in this encounter Visit Diagnoses Not on filedocumented in this encounter"
--- OUTSIDE RECORDS SUMMARY | ~2019-09-03 | XMS | Encounter Summary ---
Demographics + + + | Address | [address] | | | [place] [address] | + + + | Home Phone [...] Josue Schaeffer | ECON | [address] | | | | | [place] [address] | | + + + + + | Dariana Dowling | ECON | Unknown | | + + + + + Care Team Providers + +------+ + | Care Podiatry Teacher Name | Role | Phone | + +------+ + | Enoc Lee NP | PCP | | + +------+ + Reason for Visit + + + | Reason | Comments | + + + | Medical Records | | | Review | | + + + | Device Check | | + + + | Transfer of Care | | + + + Encounter Details +--------+ + + + + | Date | Type | Department | Care Team | Description | +--------+ + + + + | 05/26/ | Documentati | Cardiology | Manuela Moreno NP | Medical Records | | 2016 | on | Arrhythmia at [facility] | [address] | Review; Device | | | | [address] | [place], [place] | Check; Transfer of | | | | [facility] | [address] | Care | | | | and Healing, | [phone] | | | | | [place] [address] [facility] | | | | | | Floor [place], [place] | | | | | | [address] | | | | | | [phone] | | | +--------+ + + + [...]
--- OUTSIDE RECORDS SUMMARY | ~2019-09-03 | XMS | Encounter Summary ---
Demographics + + + | Address | [address] | | | [place] [address] | + + + | Home Phone [...] | | | | | [place] [address] | | + + + + + | Dariana Dowling | ECON | Unknown | | + + + + + Care Team Providers + +------+ + | Care Shroudman Name | Role | Phone | + +------+ + PCP | Unavailable | + +------+ + Encounter Details +--------+ + + + + | Date | Type | Department | Care Team | Description | +--------+ + + + + | 10/22/ | Office | | Note, Outpatient | [...] as of this encounter Progress Notes Interface, Returned Goods Inspector In - 09/07/2004 7:39 AM PDT [id number] [facility] Date: 10/23/2003 Clinic: CARDIOLOGY CLINIC Reason for Visit: Mr. Schaeffer is a 63-year-old woman who comes in for followup of her rheumatic heart disease. Medical Problem List 1. Rheumatic heart disease. 1.1. Mitral valve commissurotomy. 1.2. 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 1.3. Chronic warfarin therapy. 1.4. Functional class 2 status. 2. Hypertension. 3. Chronic migraines. 4. Chronic allergies. 5. Hyperthyroidism, now euthyroid. 6. Diffuse joint and muscular pains, possibly secondary to arthritis and/or fibromyalgia. Medications: Warfarin, based on the INR; levothyroxine 0.44 mg daily; lisinopril, which she takes as needed if her blood pressure is elevated which only occurs once or twice a month; potassium 10 mEq when she takes Lasix 20 mg, and she does this on a p.r.n. basis. She is also on variety of medications for her multiple allergies. Subjective: Mrs. Schaeffer seems to be doing quite well from a cardiac point of view. She is not having any difficulties with her Coumadin that has been stable. She tries to ride a stationary bicycle and be as active as she can be, but she has been having difficulty with muscle and joint discomfort. This has limited her activities more than anything else. She would like to be seen by a nurse technician here for evaluation as she is quite frustrated by this. The arthritis seems to be getting worse, particularly over the summer and now into the early fall. Her blood pressure, which she checks regularly at home, is usually below 140 systolic. Occasionally, she get values at 150. When this occurs, she takes a lisinopril. This brings her blood pressure down, and it seems to stay good for several weeks before gradually creeping up. She does not like to take the medications on a regular basis. She has also continued to be followed in Endocrinology Clinic and seems to be euthyroid at the moment. Physical Examination Vital Signs: Her blood pressure today is 178/82. She states that she has not taken any medications, particularly diuretics, for several days because they have been traveling a bit. She realizes she needs to probably take one. Pulse is 61, oxygen saturation 97%, and weight is stable at 134 pounds. Lungs: Clear to auscultation. Cardiovascular: Her jugular venous pressure is less than 8 cm. On auscultation, the valve sounds are heard. She has a 2/6 systolic ejection murmur. No diastolic murmurs are noted. Abdomen: Obese and nontender. Extremities: There is just a trace of edema. Assessment: Overall, Mrs. Schaeffer is doing fine. I do not think we need to check an echo which we have not done too long ago. We will refer her to Rheumatology for their evaluation. Plan 1. Continue on her cardiac medications. 2. Continue monitoring her blood pressure. 3. We will refer her to Rheumatology for evaluation of her significant joint and muscular discomfort. Emanuel Morgan M.D. GP / HS [id number] / [id number] / [id number] / cc: Dejon Beth N.P. [address] [place] [id number] documented i n this encounter Plan of Treatment Not on filedocumented as of this encounter Visit Diagnoses Not on filedocumented in this encounter"
--- OUTSIDE RECORDS SUMMARY | ~2019-09-03 | XMS | Encounter Summary ---
Demographics + + + | Address | [address] | | | [place] [address] | + + + | Home Phone | | + + + | Preferred Language | Unknown | + + + | Marital Status | | + + + | Bahai Affiliation | VANDA | + + + [...] Josue Schaeffer | ECON | [address] | | | | | [place] [address] | | + + + + + | Dariana Dowling | ECON | Unknown | | + + + + + Care Team Providers + +------+ + | Care Digital Sales Representative Name | Role | Phone | + +------+ + | Enoc Lee NP | PCP | | + +------+ + Reason for Visit + + + | Reason | Comments | + + + | Medication | | | management | | + + + Encounter Details +--------+ + + + + | Date | Type | Department | Care Team | Description | +--------+ + + + + | 06/06/ | Telephone | Cardiology [facility] at | Camryn Lewis | Medication | | 2013 | | [facility] [address] | [address] | management | | | | [facility] | [facility] | | | | | [facility], | [place] [address] | | | | | [facility] | [phone] | | | | | [facility], [place] | | | | | | [address] | | | | | | [phone] | | | +--------+ + + + [...]
--- OUTSIDE RECORDS SUMMARY | ~2019-09-03 | XMS | Clinical Summary ---
Demographics + + + | Address | [address] | | | [place] [address] | + + + | Home Phone | | + + + | Preferred Language | Unknown | + + + | Marital Status | Single | + + + | Christianity Affiliation | 1064 | + + + | Race | Unknown | + + + | Ethnic Group | Unknown | + + + Author + + + | Author | [facility] | | | and [place] | + + + | Organization | [facility] | | | and [place] [...] Team Providers + +------+ + | Care Party Host Name | Role | Phone | + +------+ + | Ramesh You DO | PCP | | + +------+ + Allergies + + + + + + | Active Allergy | Reactions | Severity | Noted | Comments | | | | | Date | | + + + + + + | Adhesive & Tape | Rash | Low | 12/09/18 | | | | | | 95 | | + + + + + + | Atorvastatin | Myalgia | | 12/29/19 | Muscle | | | | | 10 | weakness-->possible | | | | | | myositis | + + + + + + | Codeine | Other (See Comments) | | 11/16/19 | | | | | | 08 | | + + + + + + Medications + + + +---------+------+------+-------+ | Medication | Sig | Dispensed | Refills | Star | End | Statu | | | | | | t | Date | s | | | | | | Date | | | + + + +---------+------+------+-------+ | furosemide (LASIX) | Take 20 mg by mouth. | | 0 | | | Activ | | 20 mg tablet | | | | | | e | + + + +---------+------+------+-------+ | levothyroxine | Take 75 mcg by | | 0 | | | Activ | | (SYNTHROID) 75 MCG | mouth. | | | | | e | | tablet | | | | | | | + + + +---------+------+------+-------+ | fluticasone | 2 sprays. | | 0 | | | Activ | | (FLONASE) 50 | | | | | | e | | mcg/nasal spray | | | | | | | + + + +---------+------+------+-------+ | meclizine | Take 25 mg by mouth. | | 0 | | | Activ | | (ANTIVERT) 25 mg | | | | | | e | | tablet | | | | | | | + + + +---------+------+------+-------+ | metoprolol | Take 25 mg by mouth | | 0 | 11/0 | | Activ | | tartrate (LOPRESSOR) | 2 times daily. | | | 2/20 | | e | | 25 mg tablet | | | | 17 | | | + + + +---------+------+------+-------+ | warfarin | Take 5 mg by mouth. | | 0 | | | Activ | | (COUMADIN) 5 mg | | | | | | e | | tablet | | | | | | | + + + +---------+------+------+-------+ | sertraline | Take 25 mg by mouth. | | 0 | | | Activ | | (ZOLOFT) 50 mg | | | | | | e | | tablet | | | | | | | + + + +---------+------+------+-------+ | | Inhale 1 puff into | | 0 | | | Activ | | fluticasone-salmeter | the lungs. | | | | | e | | ol (ADVAIR DISKUS) | | | | | | | | 100-50 mcg/puff | | | | | | | | diskus inhaler | | | | | | | + + + +---------+------+------+-------+ | ezetimibe (ZETIA) | Take 10 mg by mouth | | 0 | | | Activ | | 10 mg tablet | Daily. | | | | | e | + + + +---------+------+------+-------+ | ALPRAZolam (XANAX) | | | 0 | 10/3 | | Activ | | 0.5 mg tablet | | | | 1/20 | | e | | | | | | 18 | | | + + + +---------+------+------+-------+ | tiZANidine | Take 2 mg by mouth | | 0 | | | Activ | | (ZANAFLEX) 2 MG | every 8 hours as | | | | | e | | tablet | needed. | | | | | | + + + +---------+------+------+-------+ | traMADol (ULTRAM) | | | 0 | 09/1 | | Activ | | 50 mg tablet | | | | 3/20 | | e | | | | | | 18 | | | + + + +---------+------+------+-------+ | albuterol (PROAIR | Inhale 1-2 puffs | | 0 | 11/2 | | Activ | | HFA) 90 mcg/puff | into the lungs every | | | 9/20 | | e | | inhaler | 4 hours as needed. | | | 10 | | | + + + +---------+------+------+-------+ | VENTOLIN HFA 108 | | | 0 | 05/2 | | Activ | | (90 Base) MCG/ACT | | | | 3/20 | | e | | inhaler | | | | 19 | | | + + + +---------+------+------+-------+ | cholecalciferol | Take 2,000 Units by | | 0 | | | Activ | | (VITAMIN D-3) 25 mcg | mouth. | | | | | e | | (1,000 units) | | | | | | | | capsule | | | | | | | + + + +---------+------+------+-------+ Active Problems + + + | Problem | Noted Date | + + + | Pacemaker reprogramming/check | 07/13/2018 | + + + | Pacemaker, Dual Chamber Medtronic 06/24/2015 Dr. 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 HP | | St. Theo aortic valve, mitral valve replacement with [address] | | Theo mitral valve on 12/10/94 at [facility] by Ihsan Carias | | KtEchocardiogram on 09/30/1999 shows normal left ventricular | | size and systolic function, mechanical valves in mitral and | | aortic position with normal forward velocities and no evidence of | | significant regurgitation. mild mitral regurgitation cannot be | | ruled out. Echocardiogram on 10/18/2001 shows normal left | | ventricular size and systolic function, aortic and mitral | | mechanical prosthesis with good hemodynamic function; disc motion | | is present. By Emanuel Morgan M.D. at [facility] Successful | | implantation of a loop recorder on 11/08/09 at [facility] | | explanation of a implantable loop recorder on 01/01/10 [facility] | [facility] shows left ventricular size and | | systolic function are normal, there is biatrial enlargement, | | there is a normal functioning mechanical mitral valve. Mitral | | regurgitation is present, however its severity cannot be assessed | | due to shielding from the prosthesis, there is a prosthetic | | aortic valve with mild aortic valve stenosis, there is no prior | | study for comparison. By Bandar Tucker MD at [facility]. Echocardiogram | | on 01/13/12 shows, the study was technically difficult with many | | images being suboptimal in quality, visualization is limited, but | | LV systolic function is grossly normal, left ventricular | | ejection fraction is 60% (+/- 5), borderline concentric left | | ventricular hypertrophy, there is a prosthetic mitral valve with | | normal function, there is a prosthetic aortic valve with mild | | stenosis, compared to the prior echo report on 02/06/11, there is | | no significant change. [facility] | | on 12/29/12 shows the cardiac rhythm showed frequent PVCs during | | the exam, left ventricular systolic function is normal, the left | | and right atria are severely enlarged, there is a mechanical | | mitral valve, the prosthetic mitral valve functions normally, | | there is a mechanical aortic valve, the gradients through the | | prosthetic aortic valve are mildly increased for this type of | | valve suggesting mild stenosis, compared to the prior echo report | | on 01/13/2012, there is no significant change. By Sonya | | MD Danica Echocardiogram on 03/13/14 shows, left ventricular | | systolic function is normal, the gradients for this prosthetic | | mitral valve are in the normal range, the gradients through the | | prosthetic aortic valve are mildly increased for this type of | | valve suggesting mild stenosis, compared to the prior echo report | | on 12/29/12, there is no significant change. By Markie Mathur | | . Echocardiogram on 04/09/15 shows, left ventricular systolic | | function is normal, the gradients for this prosthetic mitral | | valve are in the normal range, the gradients through the | | prosthetic aortic valve are mildly increased for this type of | | valve suggesting mild stenosis. Compared to the prior echo report | | on 03/13/2014, there is no significant change. By Markie Mathur MD Echocardiogram on 08/14/16 shows left ventricular | | systolic function is normal. The left and right atria are | | severely enlarged. The gradients for this prosthetic mitral valve | | are in the normal range. The gradients through the prosthetic | | aortic valve are within the normal range for this type of valve. | | Aortic valve gradients have improved to the normal range, | | compared with the prior exam. By Markie Mathur MD. at [facility] | + + + + + | Hyperlipidemia | 12/29/2012 | + + + | Essential hypertension, benign | 12/15/2004 | + + + + + | Overview: ICD10 | + + Encounters +--------+---------+ + + + | Date | Type | Specialty | Care Team | Description | +--------+---------+ + + + | 07/25/ | Office | Cardiology | Sourav Martinez | Pacemaker | | 2020 | Visit | | MD Christopher | reprogramming/check | | | | | | (Primary Dx); | | | | | | Pacemaker, Dual | | | | | | Chamber Medtronic [...] | hyperlipidemia | +--------+---------+ + + + from Last 3 Months Family History + + +------+ + | Medical History | Relation | Name | Comments | + + +------+ + | Cancer | Father | | | + + +------+ + | Diabetes | Mother | | | + + +------+ + + +------+--------+ + | Relation | Name | Status | Comments | + +------+--------+ + | Father | | | | + +------+--------+ + | Mother | | | | + +------+--------+ + Social History + +-------+ +--------+------+ | [...] on file | | + + + Last Filed Vital Signs + + + [...] | | + + + + + Plan of Treatment + + + + + | Health Maintenance | Due Date | Last | Comments | | | | Done | | + + + + + | Hepatitis C | | | | | Screening | 2 | | | + + + + + | Med Mgmt: INR | | | | | | 2 | | | + + + + + | Med Mgmt: Vit D | | | | | | 2 | | | + + + + + | Medication | | | | | Management | 2 | | | + + + + + | Vaccine: | | 04/07/19 | | | Dtap/Tdap/Td (1 - | 1 | 11 | | | Tdap) | | | | + + + + + | Vaccine: Zoster (1 | | | | | of 2) | 2 | | | + + + + + | Breast Cancer | | | | | Screening | 7 | | | + + + + + | Vaccine: | | | | | Pneumococcal 65+ (1 | 7 | | | | of 1 - PPSV23) | | | | + + + + + | Adult Annual | | | | | Wellness Visit | 9 | | | + + + + + | Med Mgmt: Cr | | 07/07/19 | | | | 0 | 19, | | | | | 07/07/19 | | | | | 19 | | + + + + + | Med Mgmt: K | | 07/07/19 | | | | 0 | 19, | | | | | 07/07/19 | | | | | 19 | | + + + + + | Med Mgmt: Na | | 07/07/19 | | | | 0 | 19, | | | | | 07/07/19 | | | | | 19 | | + + + + + | Med Mgmt: TSH | | 07/07/19 | | | | 0 | 19 | | + + + + + | Vaccine: Influenza | | 11/19/19 | | | (#1) | 0 | 19, | | | | | 11/23/19 | | | | | 18, | | | | | 10/28/19 | | | | | 17, | | | | | Addition | | | | | al | | | | | history | | | | | exists | | + + + + + Implants + +--------+--------+ +--------+--------+--------+ | Implanted | Type | Area | Manufacture | Device | Shelf | Model | | | | | r | | Expira | / | | | | | | Identi | tion | Serial | | | | | | fier | Date | / Lot | + +--------+--------+ +--------+--------+--------+ | Ra Lead-06/24/2015Implanted: | Lead | | MEDTRONIC - | | | [id number] | | Qty: 1 on 06/24/2015 by | | | MEDT | | | /[id number] | | Markie Mathur [place] | | | | | | [id number] | | | | | | | | / | + +--------+--------+ +--------+--------+--------+ | Rv Lead-06/24/2015Implanted: | Lead | | MEDTRONIC - | | | [id number] | | Qty: 1 on 06/24/2015 by | | | MEDT | | | /[id number] | | Markie Mathur [place] | | | | | | [id number] | | | | | | | | / | + +--------+--------+ +--------+--------+--------+ | Pacemaker-06/24/2015 Dual | Pacema | Right: | MEDTRONIC - | | | ADVISA | | ChamberImplanted: Qty: 1 on | ker | Chest | MEDT | | | | | 06/24/2015 by Markie Mathur | | Wall | | | | [id number] | | [place] | | | | | | | | | | | | | | /[id number] | | | | | | | | [id number] | | | | | | | | / | + +--------+--------+ +--------+--------+--------+ + + | 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 | + + Procedures + +--------+ + + + | [...] Aden | | | | | | Saeliver | | | | | | Tachycardia-bradycar | | | | | | kimberlee syndrome (HCC) | | + +--------+ + + + from Last 3 Months Results ECG 12 lead (07/26/2019 1:50 PM [...] by | | | | | | TIGRE BORDEN, GODWIN | | | | | | [id number]) on 07/28/2019 | | | | | [...] + + + | Sourav White | ANABELLAART | | MD Michelle 07/26/2019 3:51 PM [...] | | | + +---------+ + + from Last 3 Months Insurance + +--------+ +--------+ +---------+--------+ | Payer | Benefi | Subscriber | Effect | Phone | Address | Type | | | t Plan | ID | xochitl | | | | | | / | | Dates | | | | | | Group | | | | | | + +--------+ +--------+ +---------+--------+ | MEDICARE | MEDICA | [id number] | 08/09/19 | [phone] | | Medica | | | RE | | 07-Pre | 5 | | re | | | PART A | | sent | | | | | | AND B | | | | | | + +--------+ +--------+ +---------+--------+ | INDIVIDUAL ASSURANCE | INDIVI | [id number] | 07/12/19 | | | Indemn | | COMPANY | DUAL | | 19-Pre | | | ity | | | ASSURA | | sent | | | | | | [place] | | | | | | | | MDCR | | | | | | | | SUPPL | | | | | | + +--------+ +--------+ +---------+--------+ + +--------+ +--------+ + + | Guarantor Name | Accoun | Relation to | Date | Phone | Billing Address | | | t Type | Patient | of | | | | | | | | | | + +--------+ +--------+ + + | Maria Alejandra Schaeffer Carol | Person | Self [birth year] | [address] | | | al/Fam | | 1941 | [phone] | [place] | | | [place] | | | [address] (Home) | [address] | + +--------+ +--------+ + + Advance Directives + + + + + | Type | Date Recorded | Patient | Explanation | | | | Funeral Director/Embalmer/Owner | | + + + + + | Power of | | | | | Industrial Controls Technician | | | | + + + + + | Advance | | | | | Directive | | | | + + + + +
--- OUTSIDE RECORDS SUMMARY | ~2019-09-03 | XMS | Encounter Summary ---
Demographics + + + | Address | [address] | | | [place] [address] | + + + | Home Phone [...] Josue Schaeffer | ECON | [address] | | | | | [place] [address] | | + + + + + | Dariana Dowling | ECON | Unknown | | + + + + + Care Team Providers + +------+ + | Care Manager Dairy Name | Role | Phone | + [...] + + + | Closed | | Radiology | Procedures | Odilia, | [facility] | | | | | MRI SPINE | Araceli Farooq MD | [address] | | | | | LUMBAR [address] | | [address] | | | | | CONTR | | [address] | | | | | | | Research | | | | | | | [place] | | | | | | | [place], [place] | | | | | | | [address] | | | | | | | Phone: | | | | | | | [phone] | | | | | | | Fax: | | | | | | | [phone] | +--------+--------+ + + + + Diagnostic Testing (Routine) +--------+--------+ + + + + | Status | Reason | Specialty | Diagnoses / | Referred By | Referred To | | | | | Procedures | Contact | Contact | +--------+--------+ + + + + | Closed | | Cardiology | Procedures | Odilia, | Car Echo | | | | | | Araceli Farooq MD | [address] | | | | | TRANSESOPHAG | | [address] | | | | | EAL | | [address] | | | | | ECHOCARDIOGR | | Muse | | | | | AM, ADULT | | Building, 2nd | | | | | | | floor | | | | | | | [place], [place] | | | | | | | [address] | | | | | | | Phone: | | | | | | | [phone] | +--------+--------+ + + + + Reason for Visit +--------+ + | Reason | Comments | +--------+ + | Other | ENDOCARDITIS | +--------+ + AUTH/CERT +--------+--------+ + + + + | Status | Reason | Specialty | Diagnoses / | Referred By | Referred To | | | | | Procedures | Contact | Contact | +--------+--------+ + + + + | Closed | | Adult Acute | | | K[facility] 11[facility] | | | | Care | | | [facility] | | | | | | | [address] | | | | | | | [address] | | | | | | | [id number] | | | | | | | [facility] | | | | | | | [place], | | | | | | | [place] [address] | | | | | | | Phone: | | | | | | | [phone] | | | | | | | Fax: | | | | | | | [phone] | +--------+--------+ + + + + Encounter Details +--------+ + + + + | Date | Type | Department | Care Team | Description | +--------+ + + + + | 12/27/ | Hospital | [facility] [address] | Ezequiel Rosales | | | 2009 - | Encounter | [address] [place] | MD Benedict [address] | | | | | [facility] | [address] [place], [place] | | | 01/07/ | | [place], [place] | [address] | | | 2009 | | [address] | [phone] | | | | | [phone] | | | +--------+ + + + [...] + + + | Blood Pressure | 124/61 | 01/07/2010 7:40 AM | | | | | PST | | + + + + + | Pulse | 52 | 01/07/2010 7:40 AM | | | | | PST | | + + + + + | Temperature | 36.5 C (97.7 F) | 01/07/2010 7:40 AM | | | | | PST | | + + + + + | Respiratory Rate | 16 | 01/07/2010 7:40 AM | | | | | PST | | + + + + + | Oxygen Saturation | 97% | 01/07/2010 7:40 AM | | | | | PST | | + + + + + | Inhaled Oxygen | - | - | | | Concentration | | | | + + + + + | Weight | 60.6 kg (133 lb 9.6 | 01/06/2010 10:13 AM | | | | oz) | PST | | + + + + + | Height | 166.4 cm (5' 5.5") | 12/27/2009 8:00 PM | | | | | PST | | + + + + + | Body Mass Index | 21.89 | 12/27/2009 8:00 PM | | | | | PST | | + + + + + documented in this encounter Discharge Summaries Ceferino Joiner MD - 01/03/2010 11:25 AM PST CARDIOLOGY PHYSICIAN DISCHARGE SUMMARY PCP: Josiah Walls MD Referring Physician: Josiah Walls MD Primary/Outpatient Dehydration Plant Operator: Emanuel Morgan MD Inpatient Attending Physician: Ceferino Joiner MD Author/Discharging Physician: ARACELI KING MD Admission Date: 12/27/2009 Discharge Date: 01/07/2010 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 Transesophageal Echocardiogram, 12/29/2009 2. MRI with/without contrast of lumbar spine and hip 3. Removal of implantable loop recorder Consults: Infectious Disease Consult Summary of Presentation: Maria Alejandra Schaeffer is a 69 y.o. female with history of rheumatic heart disease s/p mechanical m itral and aortic St Theo prosthetic valve in 1994, implantable loop recorder placement at [facility] one month ago for palpitations and syncope, transferred from [facility] in [facility] on 12/27 for suspected prosthetic valve endocarditis and hypertropinemia. Her admission was prompted by positive blood cultures drawn on 12/26 in clinic in the sett ing of several days of fevers. The 4/4 culture bottles returned positive the next day for gr am positive cocci in aerobic and anaerobic bottles, so a transthoracic echocardiogram (TTE) was done to evaluate for endocarditis. The repeat TTE was of very limited quality due to implantable loop recorder, but showed no valvular regur gitation, grossly nl LV function, and "prosthetic valve vegetation could not be excluded". She was given a dose of gentamycin and imipenem (12/27) prior to transfer to [facility]. She was transferred to [facility] as most of her cardiac care is at [facility] with Dr Morgan. Hospital Course: # Prosthetic Valve Endocarditis: On arrival to [facility], we continued Gentamycin, and added Va ncomycin and Rifampin for empiric therapy with the help of Infectious Disease (Dr Antonette Lancaster ). We continued to follow the 12/26 blood cultures from [facility], which became especiated a s Enterococcus faecalis. We therefore adjusted antimicrobial therapy to Ampicillin (confirm ed ROYER =< 2) and continued Gentamycin for synergy. A ARELY was then performed for concern of prosthetic valve endocarditis, however valves appeared well-seated without evidence of endoc arditis, dehiscence, abscess, or perivalvular invasion. However, she did meet Sweeney Criteria with sustained bacteremia with suspected organism (1 major) and fever + predisposing condit ion + vascular phenomena (conjunctival petechiae) (3 minor). She elected not to pursue any cardiothoracic surgery even if indicated. Her bacteremia persisted 12/26-12/28, and she inder wed no additional stigmata of embolic phenomena. Source of her bacteremia is unclear, but h er loop device recorder (interrogation showed no events) given risk of secondary seeding. C ultures taken from the device were no growth. Infectious Disease recommended 6 weeks of Gentamycin and Ampicillin, which will be adminis tered at a [facility] facility close to [place] in [place]. Plan is for weekly labs, to be followed up by her Dehydration Plant Operator, Dr Emanuel Morgan. We recommend obtaining a baseline au diology evaluation (outpatient referral placed) given she is on Gentamycin--unfortunately [facility] was unable to obtain one here as they were closed through holiday week. We also held her loop diuretic to minimize risk of ototoxicity. Her coumadin was held for her transthoracic echo and recorder removal. She was bridged by heparin gtt, until her INR slowly climbed to 3.27 (goal 3.2-3.[address] Morgan) on day of d icharge. Plan to continue follow up at anticoagulation clinic. # Elevated troponin: No chest pain or EKG changes. Troponins peaked at 8.0 at [facility], diego nded down to 0.25. 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 # Back/Hip Pain: Patient described waxing/waning hip pain. In setting of her bacteremia, MRI of the lumbar spine and hip wwo contrast were performed and showed no evidence of infarc t, epidural abscess, septic arthritis, or osteomyelitis. Therefore, it was felt that her pa in Was related to arthritis/degenerative changes with neural foraminal narrowing. Daily n eurologic exams remained non-focal. She was continued on outpatient Salsalate 500 daily for her arthritis. # Hemolytic Anemia: Hematocrit, 30 on admission, trended down slowly over initial 3 days to 25. Haptoglobin < 30, LDH of 294, consistent with hemolytic anemia. Original concern for mechanical alterations in her prosthetic valve, such as leak leading to shearing, however he r hematocrit stabilized at 25-26 range. Therefore, it was later felt that her hemolytic ane nic may have been associated with Rifampin, which she initially received for several days be fore narrowing her antibiotics. She will have her complete blood counts checked weekly as an outpatient while she is on ampicillin (which can also be associated with hemolytic anemia) and gentamycin. # Hypothyroidism: TSH checked at 3.49. Continued Levothyroxine 75 mcg qd. # Asthma: Stable. Continued on home inhalers--also added albuterol prn. # Depression: Stable. Continued Zoloft 25 daily. Discharge Medication List as of 01/07/10 11:54 AM START taking these medications albuterol 90 mcg/Actuation Inhalation HFA Aerosol Inhaler Inhale 2 Puffs every four hours as needed., Disp-1 Inhaler, R-2, Print Prescription Ampicillin Sodium 1 gram Intravenous Recon Soln Inject 2 g into the vein (IV) every four hours for 35 days. Medication to be admixed per i nfusion pharmacy standard policy and/or procedure., Disp-250 Dose(s), R-0, Print Prescriptio n gentamicin Injection Solution Inject 50 mg into the vein (IV) every twelve hours for 35 days. Medication to be admixed p er infusion pharmacy standard policy and/or procedure., Disp-3000 mg, R-1, Print Prescriptio n sodium chloride 0.65 % Nasal Aerosol, Bandy Instill 2 Sprays into each nostril as needed., Disp-50 mL, R-2, Print Prescription CONTINUE these medications which have CHANGED lisinopril 5 mg Oral Tablet Take 1 Tab by mouth once daily., R-4, Print Prescription CONTINUE these medications which have NOT CHANGED ADVAIR DISKUS 250-50 mcg/Dose Inhalation Disk with Device 1 puff in the morning and 1 puff at night, Historical Med Aspirin 81 mg Oral Capsule, Delayed Release(E.C.) Take 81 mg by mouth once daily., Historical Med CALCIUM + D OR (1200 mg calcium and 500mg vitamin D) 1 tablet daily, Historical Med COD LIVER OIL OR 1 capsule daily, Historical Med fluticasone (FLONASE) 50 mcg/Actuation Nasal Bandy, Suspension Instill 2 Sprays into each nostril once daily., Historical Med Garlic 1,000 mg Oral Capsule 2 capsules daily, Historical Med GUAIFENESIN (MUCINEX ORAL) Take by mouth., Historical Med Lecithin 1,200 mg Oral Tablet, Chewable once daily, Historical Med levothyroxine 75 mcg Oral Tablet Take 75 mcg by mouth once daily., Historical Med MECLIZINE OR (10 mg tablet) 1/2 tablet twice daily, Historical Med POTASSIUM CHLORIDE SR 10 MEQ CAP take 1 tab daily with food, Disp-30, R-12, Fax salsalate 500 mg Oral Tablet 1 tablet daily, Historical Med VITAMIN B COMPLEX OR 1200 mg daily, Historical Med VITAMIN C 1,000 mg Oral Tablet 1 tablet daily, Historical Med VITAMIN E OR 1 tablet daily, Historical Med warfarin 5 mg Oral Tablet Take 5 mg by mouth once daily. Take 7.5 mg on Wednesday and , 5 mg all other days as directed by the anticoagulation clinic , Historical Med XANAX 2 mg Oral Tablet 1/4 tablet at night as needed, Historical Med ZOLOFT 50 mg Oral Tablet 1/2 tablet daily, Historical Med STOP taking these medications LASIX 20 MG TAB Comments: Reason for Stopping: Discharge Labs: Complete Blood Count Lab Results Component Value Date WBC 6.2 01/03/2010 HB 8.8 01/03/2010 HCT 26.2 01/03/2010 PLT 303 01/03/2010 MCV 89.2 01/03/2010 RDW 14.5 01/03/2010 Basic Metabolic Panel Lab Results Component Value Date NA 139 01/03/2010 K 3.9 01/03/2010 CL 109 01/03/2010 BICARB 24 01/03/2010 BUN 8 01/03/2010 CR 1.08 01/03/2010 GLU 88 01/03/2010 CA 8.8 01/03/2010 Lab Results Component Value Date INR 3.27* 01/07/2010 Lipid Panel Lab Results Component Value Date CHOL 192. 03/28/1997 Most recent LV Ejection Fraction: Normal per Transesophageal Echocardiogram on 12/29/2009 Tobacco Use: No recent tobacco use Core Measures: Diagnosis of Acute AK: No Diagnosis of CHF: No Cardiac Rehabilitation: This patient is not referred for cardiac rehabilitation. Outstanding labs/studies: Weekly Sedimentation rate, C-reactive protein, CBC with differential, and Complete Metabol ic Panel while on ampicillin and gentamycin Discharge weight: Wt Readings from Last 1 Encounters: 01/01/2010 63 kg (138 lb 14.2 oz) Discharging Physician: ARACELI KING MD Attending Physician: Ceferino Joiner MD Cardiology Attending I have seen and examined Ms. Schaeffer and discussed the patient's management with the resident and/or fellow. I reviewed the housestaff note above and agree with the documented findings and plan of care. [facility] DEPARTMENT: [facility] of [facility]: [id number] Date of Service: 01/07/2010 CSN: [id number] Suggested Modifiers: GC-Resident Ceferino Joiner MD, [facility] Wine Managerpipe inspector Cardiovascular Diseases- Interventional Cardiology Division of Cardiovascular Diseases [facility], [address] [facility] [address] [place] [address] documented in this enc ounter Medications at Time of Discharge + + [...] daily. | | | | | | Bandy, Suspension | | | | | | [...] | | 10 | | | Aerosol, Bandy | needed. | | | | | [...] + + + +---------+ + + | Ampicillin Sodium | Inject 2 g into the | 250 | 0 | 01/07/20 | | | 1 gram Intravenous | vein (IV) every four | Dose(s) | | 10 | 1 | | Recon Soln | hours for 35 days. | | | | | | | Medication to be | | | | | | | admixed per infusion | | | | | | | pharmacy standard | | | | | | | policy and/or | | | | | | | procedure. | | | | | + + + +---------+ + + | gentamicin | Inject 50 mg into | 3000 mg | 1 | 01/07/20 | | | Injection Solution | the vein (IV) every | | | 10 | 1 | | | twelve hours for 35 | | | | | | | days. Medication to | | | | | | | be admixed per | | | | | | | infusion pharmacy | | | | | | | standard policy | | | | | | | and/or procedure. | | | | | + + + +---------+ + + documented as of this encounter Progress Notes Ceferino Joiner MD - 01/06/2010 6:21 AM PST CCU PROGRESS NOTE Hospital Day:10 Author; ARACELI KING MD Attending Physician: Ezequiel Rosales MD ID: Maria Alejandra Schaeffer is a 69 y/o female with h/o rheumatic heart disease s/p prosthetic AV and MR replacement (St. Theo) in 1994, implantable loop recorder placed 11/2009, transferred with enterococcus bacteremia and suspected prosthetic valve endocarditis by SWEENEY criteria . Interval Hx: Multidisc rounds today-->learned that care facility in [place] unable to admi nister heparin drip. INR of 2.4 today. Subjective: No vision changes, focal weakness, or fevers. No hearing changes. Current Inpatient Medications: acetaminophen (aka TYLENOL) tablet 650 mg, 650 mg, Oral, Q6H PRN albuterol (aka PROVENTIL, VENTOLIN) 90 mcg/Actuation inhaler 2 Puff, 2 Puff, Inhalation, Q4 H PRN aluminum-magnesium hydroxide-simethicone (aka MAALOX; MYLANTA) 200-200-20 mg/5 mL suspensio n 15 mL, 15 mL, Oral, QID PRN ampicillin IV (minibag+) 2 g, 2 g, Intravenous, Q4H fluticasone (aka FLONASE) 50 mcg/Actuation nasal spray 2 Bandy, 2 Bandy, both nostrils, MARIA INES LY fluticasone-salmeterol (aka ADVAIR) 250-50 mcg/dose inhaler 1 Puff, 1 Puff, Inhalation, BID gentamicin (aka GARAMYCIN) IV 50 mg, 50 mg, Intravenous, Q12H heparin in D5W 100 units/mL IV infusion , 1-2,000 Units/hr, Intravenous, CONTINUOUS levothyroxine tablet 75 mcg, 75 mcg, Oral, DAILY lisinopril (aka PRINIVIL) tablet 5 mg, 5 mg, Oral, DAILY meclizine (aka ANTIVERT) tablet 12.5 mg, 12.5 mg, Oral, BID menthol-cetylpyridinium (aka CEPACOL) 1 Lozenge, 1 Lozenge, Oral, Q2H PRN polyethylene glycol (aka MIRALAX) powder 17 g, 17 g, Oral, DAILY PRN salsalate (aka DISALCID) tablet 500 mg, 500 mg, Oral, DAILY PRN senna-docusate (aka SENOKOT S) 8.6-50 mg 1 Tab, 1 Tab, Oral, BID sertraline (aka ZOLOFT) tablet 25 mg, 25 mg, Oral, DAILY sodium chloride (aka OCEAN) 0.65 % nasal spray 2 Bandy, 2 Bandy, both nostrils, PRN warfarin (aka COUMADIN) tablet 7.5 mg, 7.5 mg, Oral, QPM Physical Exam: Last Vitals: BP 131/56 | Pulse 50 | Temp 36.7 C (98.1 F) | RR 16 | Ht 1.664 m (5' 5.5") | Wt 61.3 kg (135 lb 2.3 oz) | SpO2 97% | BMI 22.15 kg/(m^2) O2 Delivery Device: None (room air) (01/06/10434) 24 Hour Vital Min/Max: Temp Min: 36.5 C (97.7 F) Max: 37.2 C (99 F) Systolic (24hrs), Min:129 mmHg, Max:148 mmHgDiastolic (24hrs), Min:52 mmHg, Max:73 mmHg Pulse Min: 50 Max: 63 Resp Min: 14 Max: 18 SpO2 Min: 96 % Max: 99 % Intake/Output Summary (Last 24 hours) at 01/06/10656 Last data filed at 01/06/10438 Gross per 24 hour Intake 1813 ml Output 3650 ml Net -1837 ml General Appearance: NAD Respiratory: CTA bilat, no crackles or wheezing Cardiovascular: RRR, S1 S2 click, S3, 3/6 pranay shaped systolic best at LLSB. Ext: No edema, 2+ DP pulses. No peripheral embolic stigmata. 5/5 achilles strength bilater ally Skin: Warm, well perfused Recent Labs Basename 01/06/1044401/05/1040901/04/1042912/29/0950012/29/0944412/27/09 202 2 NA 142 139 138 -- -- -- K 4.1 4.0 4.1 -- -- -- CL 110* 109* 110* -- -- -- BICARB 24 24 24 -- -- -- BUN 11 10 7 -- -- -- CR 1.11* 1.06 1.04 -- -- -- GLU 79 93 76 -- -- -- CA 8.8 8.7 8.5* -- -- -- AST -- -- -- See cmnt 24 41 ALT -- -- -- See cmnt 15 17 AP -- -- -- See cmnt 60 65 TBILI -- -- -- See cmnt 1.0 0.9 TP -- -- -- See cmnt 5.8* 6.7 ALB -- -- -- See cmnt 2.5* 2.9* Recent Labs Basename 01/06/1044401/05/1040901/04/1042912/27/09202112/26/09 WBC 6.1 6.4 6.7 -- -- RBC 3.02* 2.90* 2.78* -- -- HB 9.0* 8.8* 8.4* -- -- HCT 26.9* 26.0* 25.0* -- -- PLT 322 322 316 -- -- NEUTROPERC -- -- -- 83* 86.7* BANDPCT -- -- -- -- -- LYMPHPERC -- -- -- 8* 6.0* MONOPERC -- -- -- 8 7.0 BASOPERC -- -- -- 0 0.0 EOSPERC -- -- -- 0* 0.3 Lab Results Component Value Date INR 2.41* 01/06/2010 Lab Results Component Value Date TROPONIN 0.25 01/02/2010 TROPONIN 1.80* 12/29/2009 TROPONIN 2.87* 12/28/2009 Assessment and Plan: This is a 69 y/o female with h/o rheumatic heart disease s/p prostheti c AV and MV replacement (St. 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 Now abacteremic and afebrile since 12/29, awaiting INR to be close to therapeutic range for discharge to care facility. # Prosthetic Valve Endocarditis: Per Sweeney Criteria with sustained bacteremia with suspected organism (1 major) and fever + predisposing condition + vascular phenomena (conjunctival pe techiae) (3 minor). Resolution of fevers, leukocytosis, and abacteremic since 12/29 on ampicillin + gentamycin for enterococcus. PICC placed, and plan for 6 weeks of ampicillin and gentamycin starting fr om first negative blood cultures on 12/29. - cont gentamycin 60mg IV q8H and ampicillin 2g IV q4H until 02/10/2010 (6 weeks from first negative blood culture)--> daily BMP. Pharm assisted management for gent dosing. Minimize loop diuretics. After discharge, will need weekly ESR, CRP, gent trough and peak, CBC with diff, and CMP- to be followed up by Dr Morgan. - Will place an outpatient audiology consult given several weeks on gent # Prosthetic Valves: Mitral and Aortic St Theo's placed in 1994. Still far from INR goal o f 3.5 (suspect potentially drug interaction related to her antibiotics)--> therefore, will s hazel another night and dose with Coumadin 10 tonight as care facility unable to provide hepar in gtt # Hemolytic Anemia: Hct drifted down (30 admission-->25), now stable at 25. Elevated LDH an d low haptoglobin c/w hemolysis. Has been stable for several days-->therefore suspect likel y related to rifampin originally started. Weekly CBC with diff after discharge - Monitor weekly CBC with diff after discharge # Hypothyroidism: Continue Levothyroxine 75 mcg qd. TSH wnl at 3.49. # Asthma: Stable. Continue home inhalers, albuterol prn. # Depression: Continue Zoloft 25 daily. # Chronic Arthritis: Continue outpatient Salsalate 500 qd F: Prudent A: salsalate S: none T: coumadin (pharm managed) H: >30 degrees U: none, eating G: n/a Activity: out of bed Dispo: To care facility once INR at least 3.0 CODE: DNR/DNI Patient was staffed with my attending, Dr Joiner, who agrees with my assessment/plan Annette King MD Internal Medicine, PGY2 Pager: [phone] Cardiology Attending I have seen and examined Ms. Schaeffer and discussed the patient's management with the resident and/or fellow. I reviewed the housestaff note above and agree with the documented findings and plan of care. Cultures have remained negative now and her warfarin is therapeutic this evening. Plan for discharge in AM. EPIC DEPARTMENT: Place of Service: Inpatient Hospital Date of Service: 01/06/2010 CSN: [id number] Suggested Modifiers: GC-Resident Ceferino Joiner MD, FACC Wine Managerpipe inspector Cardiovascular Diseases- Interventional Cardiology Division of Cardiovascular Diseases [facility], [address] [facility] [address] [place] [address] Ezequiel Castro M D - 01/05/2010 5:37 AM PST CCU PROGRESS NOTE Hospital Day:9 Author; ARACELI KING MD Attending Physician: Ezequiel Rosales MD ID: Maria Alejandra Schaeffer is a 69 y/o female with h/o rheumatic heart disease s/p prosthetic AV and MR replacement (St. Theo) in 1994, implantable loop recorder placed 11/2009, transferred with enterococcus bacteremia and suspected prosthetic valve endocarditis by SWEENEY criteria . Interval Hx: Uneventful Subjective: Some lightheadedness with ambulating. No vision changes, focal weakness, or fevers. No hearing changes. Current Inpatient Medications: acetaminophen (aka TYLENOL) tablet 650 mg, 650 mg, Oral, Q6H PRN albuterol (aka PROVENTIL, VENTOLIN) 90 mcg/Actuation inhaler 2 Puff, 2 Puff, Inhalation, Q4 H PRN aluminum-magnesium hydroxide-simethicone (aka MAALOX; MYLANTA) 200-200-20 mg/5 mL suspensio n 15 mL, 15 mL, Oral, QID PRN ampicillin IV (minibag+) 2 g, 2 g, Intravenous, Q4H fluticasone (aka FLONASE) 50 mcg/Actuation nasal spray 2 Bandy, 2 Bandy, both nostrils, MARIA INES LY fluticasone-salmeterol (aka ADVAIR) 250-50 mcg/dose inhaler 1 Puff, 1 Puff, Inhalation, BID gentamicin (aka GARAMYCIN) IV 50 mg, 50 mg, Intravenous, Q12H heparin in D5W 100 units/mL IV infusion , 1-2,000 Units/hr, Intravenous, CONTINUOUS levothyroxine tablet 75 mcg, 75 mcg, Oral, DAILY lisinopril (aka PRINIVIL) tablet 5 mg, 5 mg, Oral, DAILY meclizine (aka ANTIVERT) tablet 12.5 mg, 12.5 mg, Oral, BID menthol-cetylpyridinium (aka CEPACOL) 1 Lozenge, 1 Lozenge, Oral, Q2H PRN polyethylene glycol (aka MIRALAX) powder 17 g, 17 g, Oral, DAILY PRN salsalate (aka DISALCID) tablet 500 mg, 500 mg, Oral, DAILY PRN senna-docusate (aka SENOKOT S) 8.6-50 mg 1 Tab, 1 Tab, Oral, BID sertraline (aka ZOLOFT) tablet 25 mg, 25 mg, Oral, DAILY sodium chloride (aka OCEAN) 0.65 % nasal spray 2 Bandy, 2 Bandy, both nostrils, PRN warfarin (aka COUMADIN) tablet 5 mg, 5 mg, Oral, QPM Physical Exam: Last Vitals: BP 124/55 | Pulse 49 | Temp 36.1 C (97 F) | RR 16 | Ht 1.664 m (5' 5.5") | Wt 61.3 kg (135 lb 2.3 oz) | SpO2 98% | BMI 22.15 kg/(m^2) O2 Delivery Device: None (room a ir) (01/05/10521) 24 Hour Vital Min/Max: Systolic (24hrs), Min:124 mmHg, Max:158 mmHgDiastolic (24hrs), Min:51 mmHg, Max:92 mmHgPuls e Min: 49 Max: 56 Temp Min: 36.1 C (97 F) Max: 36.7 C (98.1 F) Resp Min: 16 Max: 18 SpO2 Min: 97 % Max: 98 % Intake/Output Summary (Last 24 hours) at 01/05/10536 Last data filed at 01/05/10521 Gross per 24 hour Intake 2550 ml Output 2550 ml Net 0 ml General Appearance: NAD Respiratory: CTA bilat, no crackles or wheezing Cardiovascular: RRR, S1 S2 click, S3, 3/6 pranay shaped systolic best at LLSB.Ext: No edema, 2+ DP pulses. No peripheral embolic stigmata. 5/5 achilles strength bilaterally Skin: Warm, well perfused Recent Labs Basename 01/05/10 0410 01/04/10 0430 01/03/10 0505 12/29/09 0501 12/29/09 0445 12/27/09 202 2 NA 139 138 139 -- -- -- K 4.0 4.1 3.9 -- -- -- CL 109* 110* 109* -- -- -- BICARB 24 24 24 -- -- -- BUN 10 7 8 -- -- -- CR 1.06 1.04 1.08 -- -- -- GLU 93 76 88 -- -- -- CA 8.7 8.5* 8.8 -- -- -- AST -- -- -- See cmnt 24 41 ALT -- -- -- See cmnt 15 17 AP -- -- -- See cmnt 60 65 TBILI -- -- -- See cmnt 1.0 0.9 TP -- -- -- See cmnt 5.8* 6.7 ALB -- -- -- See cmnt 2.5* 2.9* Recent Labs Basename 01/05/10 0410 01/04/10 0430 01/03/10 0505 12/27/09202112/26/09 WBC 6.4 6.7 6.2 -- -- RBC 2.90* 2.78* 2.94* -- -- HB 8.8* 8.4* 8.8* -- -- HCT 26.0* 25.0* 26.2* -- -- PLT 322 316 303 -- -- NEUTROPERC -- -- -- 83* 86.7* BANDPCT -- -- -- -- -- LYMPHPERC -- -- -- 8* 6.0* MONOPERC -- -- -- 8 7.0 BASOPERC -- -- -- 0 0.0 EOSPERC -- -- -- 0* 0.3 Lab Results Component Value Date INR 2.17* 01/05/2010 Lab Results Component Value Date ESR 107* 01/03/2010 Lab Results Component Value Date CRP 3.5* 01/03/2010 Assessment and Plan: This is a 69 y/o female with h/o rheumatic heart disease s/p prostheti c AV and MV replacement (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 Now abacteremic and afebrile since 12/29, awaiting discharge to care facility. # Prosthetic Valve Endocarditis: Per Sweeney Criteria with sustained bacteremia with suspected organism (1 major) and fever + predisposing condition + vascular phenomena (conjunctival pe techiae) (3 minor). Resolution of fevers, leukocytosis, and abacteremic since 12/29 on ampicillin + gentamycin for enterococcus. PICC placed, and plan for 6 weeks of ampicillin and gentamycin starting fr om first negative blood cultures on 12/29. - implantable loop recorder removed - cont gentamycin 60mg IV q8H and ampicillin 2g IV q4H until 02/09/2010 (6 weeks from first negative blood culture)--> daily BMP. Pharm assisted management for gent dosing. Minimize loop diuretics. After discharge, will need weekly ESR, CRP, gent trough and peak, CBC with diff, and CMP- to be followed up by Dr Bower. - Still far from INR goal--> Coumadin 10 tonight with hep gtt (will likely need to continu e at care facility) until therapeutic for goal INR 3.5-4 given double valves - If unable to receive inpatient audiology consult, will place an outpatient audiology con sult given several weeks on gent # Hemolytic Anemia: Hct drifted down (30 admission-->25), now stable at 25. Elevated LDH an d low haptoglobin c/w hemolysis. 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 Has been stable for severa l days-- will check weekly CBC with diff after discharge - Will check weekly CBC with diff after discharge # Hypothyroidism: Continue Levothyroxine 75 mcg qd. TSH wnl at 3.49. # Asthma: Stable. Continue home inhalers, albuterol prn. # Depression: Continue Zoloft 25 daily. # Chronic Arthritis: Continue outpatient Salsalate 500 qd F: Prudent A: salsalate S: none T: coumadin (pharm managed) H: >30 degrees U: none, eating G: n/a Activity: out of bed Dispo: To care facility, hopefully on Wednesday (tomorrow) CODE: DNR/DNI Patient was staffed with my attending, Dr Rosales, who agrees with my assessment/plan Annette King MD Internal Medicine, PGY2 Pager: [phone] Cardiology Attending:I personally interviewed the patient, performed the pertinent parts of the physical examination and personally formulated the plan with the resident. I agree wit h the residents documentation and have documented any additions or exceptions. Ezequiel Castro MD - 01/04/2010 4:30 PM PST . CCU PROGRESS NOTE Hospital Day:8 Author; ARACELI KING MD Attending Physician: Ezequiel Rosales MD ID: Maria Alejandra Schaeffer is a 69 y/o female with h/o rheumatic heart disease s/p prosthetic AV and MR replacement ([employer]) in 1994, implantable loop recorder placed 11/2009, transferred with enterococcus bacteremia and suspected prosthetic valve endocarditis by SWEENEY criteria . Interval Hx: No acute overnight events Subjective: Feeling well, no complaints. No vision changes, focal weakness, or fevers. N o hearing changes. Ambulating Current Inpatient Medications: acetaminophen (aka TYLENOL) tablet 650 mg, 650 mg, Oral, Q6H PRN albuterol (aka PROVENTIL, VENTOLIN) 90 mcg/Actuation inhaler 2 Puff, 2 Puff, Inhalation, Q4 H PRN aluminum-magnesium hydroxide-simethicone (aka MAALOX; MYLANTA) 200-200-20 mg/5 mL suspensio n 15 mL, 15 mL, Oral, QID PRN ampicillin IV (minibag+) 2 g, 2 g, Intravenous, Q4H fluticasone (aka FLONASE) 50 mcg/Actuation nasal spray 2 Bandy, 2 Bandy, both nostrils, MARIA INES LY fluticasone-salmeterol (aka ADVAIR) 250-50 mcg/dose inhaler 1 Puff, 1 Puff, Inhalation, BID gentamicin (aka GARAMYCIN) IV 50 mg, 50 mg, Intravenous, Q12H heparin in D5W 100 units/mL IV infusion , 1-2,000 Units/hr, Intravenous, CONTINUOUS levothyroxine tablet 75 mcg, 75 mcg, Oral, DAILY lisinopril (aka PRINIVIL) tablet 5 mg, 5 mg, Oral, DAILY meclizine (aka ANTIVERT) tablet 12.5 mg, 12.5 mg, Oral, BID menthol-cetylpyridinium (aka CEPACOL) 1 Lozenge, 1 Lozenge, Oral, Q2H PRN polyethylene glycol (aka MIRALAX) powder 17 g, 17 g, Oral, DAILY PRN salsalate (aka DISALCID) tablet 500 mg, 500 mg, Oral, DAILY PRN senna-docusate (aka SENOKOT S) 8.6-50 mg 1 Tab, 1 Tab, Oral, BID sertraline (aka ZOLOFT) tablet 25 mg, 25 mg, Oral, DAILY sodium chloride (aka OCEAN) 0.65 % nasal spray 2 Bandy, 2 Bandy, both nostrils, PRN warfarin (aka COUMADIN) tablet 5 mg, 5 mg, Oral, QPM warfarin (aka COUMADIN) tablet 7.5 mg, 7.5 mg, Oral, QPM Physical Exam: Last Vitals: BP 158/92 | Pulse 56 | Temp 36.7 C (98.1 F) | RR 18 | Ht 1.664 m (5' 5.5") | Wt 63 kg (138 lb 14.2 oz) | SpO2 98% | BMI 22.76 kg/(m^2) O2 Delivery Device: None (room air) (01/04/10 1147) 24 Hour Vital Min/Max: Systolic (24hrs), Min:142 mmHg, Max:158 mmHgDiastolic (24hrs), Min:59 mmHg, Max:97 mmHgPuls e Min: 51 Max: 59 Temp Min: 36.6 C (97.9 F) Max: 36.7 C (98.1 F) Resp Min: 16 Max: 18 SpO2 Min: 97 % Max: 99 % Intake/Output Summary (Last 24 hours) at 01/04/10 1630 Last data filed at 01/04/10 1400 Gross per 24 hour Intake 2100 ml Output 3200 ml Net -1100 ml General Appearance: NAD Respiratory: CTA bilat, no crackles or wheezing Cardiovascular: RRR, S1 S2 click, S3, 3/6 pranay shaped systolic best at LLSB.Ext: No edema, 2+ DP pulses. No peripheral embolic stigmata. 5/5 achilles strength bilaterally Skin: Warm, well perfused Recent Labs Basename 01/04/10 0430 01/03/10 0505 01/02/10 0353 12/29/09 0501 12/29/09 0445 12/27/09 202 2 NA 138 139 141 -- -- -- K 4.1 3.9 4.2 -- -- -- CL 110* 109* 110* -- -- -- BICARB 24 24 25 -- -- -- BUN 7 8 7 -- -- -- CR 1.04 1.08 0.89 -- -- -- GLU 76 88 85 -- -- -- CA 8.5* 8.8 8.5* -- -- -- AST -- -- -- See cmnt 24 41 ALT -- -- -- See cmnt 15 17 AP -- -- -- See cmnt 60 65 TBILI -- -- -- See cmnt 1.0 0.9 TP -- -- -- See cmnt 5.8* 6.7 ALB -- -- -- See cmnt 2.5* 2.9* Recent Labs Basename 01/04/10 0430 01/03/10 0505 01/02/10 0353 12/27/09202112/26/09 WBC 6.7 6.2 6.3 -- -- RBC 2.78* 2.94* 2.71* -- -- HB 8.4* 8.8* 8.2* -- -- HCT 25.0* 26.2* 24.2* -- -- PLT 316 303 292 -- -- NEUTROPERC -- -- -- 83* 86.7* BANDPCT -- -- -- -- -- LYMPHPERC -- -- -- 8* 6.0* MONOPERC -- -- -- 8 7.0 BASOPERC -- -- -- 0 0.0 EOSPERC -- -- -- 0* 0.3 Lab Results Component Value Date INR 2.21* 01/04/2010 EKG: NSR, normal NE intervals Assessment and Plan: This is a 69 y/o female with h/o rheumatic heart disease s/p prostheti c AV and MV replacement (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 Now abacteremic and afebrile since 12/29, awaiting discharge to care facility. # Prosthetic Valve Endocarditis: Per Sweeney Criteria with sustained bacteremia with suspected organism (1 major) and fever + predisposing condition + vascular phenomena (conjunctival pe techiae) (3 minor). Resolution of fevers, leukocytosis, and abacteremic since 12/29 on ampicillin + gentamycin for enterococcus. PICC placed, and plan for 6 weeks of ampicillin and gentamycin starting fr om first negative blood cultures on 12/29. - implantable loop recorder removed - cont gentamycin 60mg IV q8H and ampicillin 2g IV q4H until 12/10 (6 weeks from first nega tive blood culture)--> daily BMP, inpatient audiology consult still pending. Pharm assist ed management for gent dosing. Minimize loop diuretics. Plan to f/u with Dr Kathleen - Coumadin with hep gtt until therapeutic for goal INR 3.5-4 given double valves - daily EKG # Hemolytic Anemia: Hct drifted down (30 admission-->25), now stable at 25. Elevated LDH an d low haptoglobin c/w hemolysis. Mech alterations in her prosthetic valve (ex leak), such as leak leading to shearing. Also potential drug-induced hemolytic anemia associated with ampi cillin and rifampin. Currently stable (thus wonder if may have been secondary to rifampin wh ich was stopped), will continue to monitor. - Continue to monitor (may also benefit from weekly CBC's after discharge) - Will consider repeating hemolytic labs prior to discharge # Hypothyroidism: Continue Levothyroxine 75 mcg qd. TSH wnl at 3.49. # Asthma: Stable. Continue home inhalers, albuterol prn. # Depression: Continue Zoloft 25 daily. # Chronic Arthritis: Continue outpatient Salsalate 500 qd F: Prudent A: salsalate S: none T: coumadin (pharm managed) H: >30 degrees U: none, eating G: n/a Activity: out of bed Dispo: To care facility, hopefully on Wednesday CODE: DNR/DNI Cardiology Attending:I personally interviewed the patient, performed the pertinent parts of the physical examination and personally formulated the plan with the resident. I agree wit h the residents documentation and have documented any additions or exceptions. Patient was staffed with my attending, Dr Rosales, who agrees with my assessment/plan Annette King MD Internal Medicine, PGY2 Pager: [phone] Rachna, Araceli Farooq MD - 01/03/2010 11:05 AM PST CCU PROGRESS NOTE Hospital Day:7 Author; ARACELI KING MD Attending Physician: Ezequiel Rosales MD Interval Hx: Uneventful night Subjective: Feeling tired, otherwise no complaints. Pain controlled. No lightheadedness. No vision changes Current Inpatient Medications: acetaminophen (aka TYLENOL) tablet 650 mg, 650 mg, Oral, Q6H PRN albuterol (aka PROVENTIL, VENTOLIN) 90 mcg/Actuation inhaler 2 Puff, 2 Puff, Inhalation, Q4 H PRN aluminum-magnesium hydroxide-simethicone (aka MAALOX; MYLANTA) 200-200-20 mg/5 mL suspensio n 15 mL, 15 mL, Oral, QID PRN ampicillin IV (minibag+) 2 g, 2 g, Intravenous, Q4H fluticasone (aka FLONASE) 50 mcg/Actuation nasal spray 2 Bandy, 2 Bandy, both nostrils, MARIA INES LY fluticasone-salmeterol (aka ADVAIR) 250-50 mcg/dose inhaler 1 Puff, 1 Puff, Inhalation, BID gentamicin (aka GARAMYCIN) IV 50 mg, 50 mg, Intravenous, Q8H heparin in D5W 100 units/mL IV infusion , 1-2,000 Units/hr, Intravenous, CONTINUOUS levothyroxine tablet 75 mcg, 75 mcg, Oral, DAILY lisinopril (aka PRINIVIL) tablet 5 mg, 5 mg, Oral, DAILY meclizine (aka ANTIVERT) tablet 12.5 mg, 12.5 mg, Oral, BID menthol-cetylpyridinium (aka CEPACOL) 1 Lozenge, 1 Lozenge, Oral, Q2H PRN polyethylene glycol (aka MIRALAX) powder 17 g, 17 g, Oral, DAILY PRN salsalate (aka DISALCID) tablet 500 mg, 500 mg, Oral, DAILY PRN senna-docusate (aka SENOKOT S) 8.6-50 mg 1 Tab, 1 Tab, Oral, BID sertraline (aka ZOLOFT) tablet 25 mg, 25 mg, Oral, DAILY sodium chloride (aka OCEAN) 0.65 % nasal spray 2 Bandy, 2 Bandy, both nostrils, PRN warfarin (aka COUMADIN) tablet 5 mg, 5 mg, Oral, QPM Physical Exam: Last Vitals: BP 135/74 | Pulse 48 | Temp 37.2 C (99 F) | RR 18 | Ht 1.664 m (5' 5.5") | Wt 63 kg (138 lb 14.2 oz) | SpO2 96% | BMI 22.76 kg/(m^2) O2 Delivery Device: None (room ai r) (01/03/10 0800) 24 Hour Vital Min/Max: Systolic (24hrs), Min:133 mmHg, Max:161 mmHgDiastolic (24hrs), Min:64 mmHg, Max:74 mmHgPuls e Min: 48 Max: 60 Temp Min: 36.4 C (97.5 F) Max: 37.4 C (99.3 F) Resp Min: 16 Max: 18 SpO2 Min: 92 % Max: 98 % Intake/Output Summary (Last 24 hours) at 01/03/10 1105 Last data filed at 01/03/10 0976 Gross per 24 hour Intake 2205.02 ml Output 3350 ml Net -1144.98 ml General Appearance: NAD Respiratory: CTA bilat, no crackles or wheezing Cardiovascular: RRR, S1 S2 click, S3, 3/6 pranay shaped systolic best at LLSB. No erythema or induration overlying loop recorder Ext: No edema, 2+ DP pulses. No peripheral embolic stigmata . 5/5 achilles strength bilate rally Skin: Warm, well perfused Recent Labs Basename 01/03/10 0505 01/02/10 0353 01/01/10 0534 12/29/09 0501 12/29/09 0445 12/27/09 202 2 NA 139 141 140 -- -- -- K 3.9 4.2 3.7 -- -- -- CL 109* 110* 109* -- -- -- BICARB 24 25 26 -- -- -- BUN 8 7 7 -- -- -- CR 1.08 0.89 0.94 -- -- -- GLU 88 85 81 -- -- -- CA 8.8 8.5* 8.4* -- -- -- AST -- -- -- See cmnt 24 41 ALT -- -- -- See cmnt 15 17 AP -- -- -- See cmnt 60 65 TBILI -- -- -- See cmnt 1.0 0.9 TP -- -- -- See cmnt 5.8* 6.7 ALB -- -- -- See cmnt 2.5* 2.9* Recent Labs Basename 01/03/10 0505 01/02/10 0353 01/01/10 0534 12/27/09202112/26/09 WBC 6.2 6.3 6.6 -- -- RBC 2.94* 2.71* 2.86* -- -- HB 8.8* 8.2* 8.7* -- -- HCT 26.2* 24.2* 25.5* -- -- PLT 303 292 272 -- -- NEUTROPERC -- -- -- 83* 86.7* BANDPCT -- -- -- -- -- LYMPHPERC -- -- -- 8* 6.0* MONOPERC -- -- -- 8 7.0 BASOPERC -- -- -- 0 0.0 EOSPERC -- -- -- 0* 0.3 Lab Results Component Value Date INR 2.04* 01/03/2010 Lab Results Component Value Date TROPONIN 0.25 01/02/2010 TROPONIN 1.80* 12/29/2009 TROPONIN 2.87* 12/28/2009 EKG: NSR, normal NE intervals Assessment and Plan: This is a 69 y/o female with h/o rheumatic heart disease s/p prostheti c AV and MV replacement (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 # Prosthetic Valve Endocarditis: Per Sweeney Criteria with sustained bacteremia with suspected organism (1 major) and fever + predisposing condition + vascular phenomena (conjunctival pe techiae) (3 minor). Resolution of fevers, leukocytosis, and abacteremic since 12/29 on ampicillin + gentamycin for enterococcus. PICC placed, and plan for 6 weeks of ampicillin and gentamycin starting f rom first negative blood cultures on 12/29. - implantable loop recorder removed - cont gentamycin 60mg IV q8H and ampicillin 2g IV q4H --> daily BMP, inpatient audiology consult placed (called and said they would not be doing over or weekends). Ph arm assisted management. Minimize loop diuretics. - Checking a baseline CRP and ESR now, and weekly ESR and CRP therafter - Coumadin with hep gtt until therapeutic for goal INR 2.5-3.5 - Stop blood cultures - daily EKG # Hemolytic Anemia: Hct drifting down (30 admission-->25), now continues to be stable at 25 . Elevated LDH and low haptoglobin. Concern for mechanical alterations in her prosthetic zheng ve, such as leak leading to shearing (though patient adament no cardiac surgery). 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 Currently stable (wonder if may have been secondary to rifampin which was stopped), will continue to monitor . - Continue to monitor (may also benefit from weekly CBC's after discharge) - Will consider repeating hemolytic labs prior to discharge # Hypothyroidism: Continue Levothyroxine 75 mcg qd. TSH wnl at 3.49. # Asthma: Stable. Continue home inhalers, albuterol prn. # Depression: Continue Zoloft 25 daily. # Chronic Arthritis: On Salsalate 500 qd at home. Will continue. F: Prudent A: salsalate S: none T: coumadin H: >30 degrees U: none, eating G: n/a Dispo: +Physical therapy, OOB. To care facility, hopefully on Wednesday CODE: DNR/DNI Patient was staffed with my attending, Dr Rosales, who agrees with my assessment/plan Annette King MD Internal Medicine, PGY2 Pager: [phone] ie, Araceli Farooq MD - 1:55 PM PST CCU PROGRESS NOTE Hospital Day:6 Author; ARACELI KING MD Attending Physician: Ezequiel Rosales MD Interval Hx: Implantable Loop Recorder removed. Blood cultures d/c'ed given NG x 72 hours. Subjective: Pain controlled. No bleeding at surgical sight. No lightheadedness. No new c omplaints. Current Inpatient Medications: acetaminophen (aka TYLENOL) tablet 650 mg, 650 mg, Oral, Q6H PRN albuterol (aka PROVENTIL, VENTOLIN) 90 mcg/Actuation inhaler 2 Puff, 2 Puff, Inhalation, Q4 H PRN aluminum-magnesium hydroxide-simethicone (aka MAALOX; MYLANTA) 200-200-20 mg/5 mL suspensio n 15 mL, 15 mL, Oral, QID PRN ampicillin IV (minibag+) 2 g, 2 g, Intravenous, Q4H fluticasone (aka FLONASE) 50 mcg/Actuation nasal spray 2 Bandy, 2 Bandy, both nostrils, MARIA INES LY fluticasone-salmeterol (aka ADVAIR) 250-50 mcg/dose inhaler 1 Puff, 1 Puff, Inhalation, BID gentamicin (aka GARAMYCIN) IV 50 mg, 50 mg, Intravenous, Q8H heparin in D5W 100 units/mL IV infusion , 1-2,000 Units/hr, Intravenous, CONTINUOUS levothyroxine tablet 75 mcg, 75 mcg, Oral, DAILY lisinopril (aka PRINIVIL) tablet 5 mg, 5 mg, Oral, DAILY meclizine (aka ANTIVERT) tablet 12.5 mg, 12.5 mg, Oral, BID menthol-cetylpyridinium (aka CEPACOL) 1 Lozenge, 1 Lozenge, Oral, Q2H PRN polyethylene glycol (aka MIRALAX) powder 17 g, 17 g, Oral, DAILY PRN salsalate (aka DISALCID) tablet 500 mg, 500 mg, Oral, DAILY PRN senna-docusate (aka SENOKOT S) 8.6-50 mg 1 Tab, 1 Tab, Oral, BID sertraline (aka ZOLOFT) tablet 25 mg, 25 mg, Oral, DAILY sodium chloride (aka OCEAN) 0.65 % nasal spray 2 Bandy, 2 Bandy, both nostrils, PRN warfarin (aka COUMADIN) tablet 5 mg, 5 mg, Oral, QPM Physical Exam: Last Vitals: BP 133/64 | Pulse 55 | Temp 36.9 C (98.4 F) | RR 18 | Ht 1.664 m (5' 5.5") | Wt 63 kg (138 lb 14.2 oz) | SpO2 92% | BMI 22.76 kg/(m^2) O2 Delivery Device: None (room air) (01/02/10 1313) 24 Hour Vital Min/Max: Systolic (24hrs), Min:121 mmHg, Max:158 mmHgDiastolic (24hrs), Min:52 mmHg, Max:75 mmHgPuls e Min: 49 Max: 55 Temp Min: 36 C (96.8 F) Max: 37 C (98.6 F) Resp Min: 15 Max: 18 SpO2 Min: 92 % Max: 99 % Intake/Output Summary (Last 24 hours) at 01/02/10 1355 Last data filed at 01/02/10 1314 Gross per 24 hour Intake 2333.81 ml Output 2350 ml Net -16.19 ml General Appearance: NAD Respiratory: CTA bilat, no crackles or wheezing Cardiovascular: RRR, S1 S2 click, S3, 3/6 pranay shaped systolic best at LLSB. No erythema or induration overlying loop recorder Ext: No edema, 2+ DP pulses. No peripheral embolic stigmata Skin: Warm, well perfused Recent Labs Basename 01/02/1035201/01/1053312/31/0961912/29/0950012/29/0944412/27/09 202 2 NA 141 140 140 -- -- -- K 4.2 3.7 3.8 -- -- -- CL 110* 109* 110* -- -- -- BICARB 25 26 26 -- -- -- BUN 7 7 5* -- -- -- CR 0.89 0.94 0.92 -- -- -- GLU 85 81 101* -- -- -- CA 8.5* 8.4* 8.5* -- -- -- AST -- -- -- See cmnt 24 41 ALT -- -- -- See cmnt 15 17 AP -- -- -- See cmnt 60 65 TBILI -- -- -- See cmnt 1.0 0.9 TP -- -- -- See cmnt 5.8* 6.7 ALB -- -- -- See cmnt 2.5* 2.9* Recent Labs Basename 01/02/1035201/01/10 0534 12/31/09 0620 12/27/09202112/26/09 WBC 6.3 6.6 6.8 -- -- RBC 2.71* 2.86* 2.89* -- -- HB 8.2* 8.7* 8.8* -- -- HCT 24.2* 25.5* 25.6* -- -- PLT 292 272 271 -- -- NEUTROPERC -- -- -- 83* 86.7* BANDPCT -- -- -- -- -- LYMPHPERC -- -- -- 8* 6.0* MONOPERC -- -- -- 8 7.0 BASOPERC -- -- -- 0 0.0 EOSPERC -- -- -- 0* 0.3 Lab Results Component Value Date INR 1.88* 01/02/2010 Lab Results Component Value Date TROPONIN 0.25 01/02/2010 TROPONIN 1.80* 12/29/2009 TROPONIN 2.87* 12/28/2009 Assessment and Plan: This is a 69 y/o female with h/o rheumatic heart disease s/p prostheti c AV and MV replacement (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 # Prosthetic Valve Endocarditis: Meets Sweeney Criteria with sustained bacteremia with suspect ed organism (1 major) and fever + predisposing condition + vascular phenomena (conjunctival petechiae) (3 minor). Fever curve coming down, resolution of leukocytosis, and abacteremic since 12/29 on ampicil mariola + gentamycin for enterococcus. PICC placed, and plan for 6 weeks of ampicillin and genta mycin starting from first negative blood cultures on 12/29. - implantable loop recorder removed - cont gentamycin 60mg IV q8H and ampicillin 2g IV q4H --> daily BMP, inpatient audiology consult placed (called and said they would not be doing over ). Pharm assisted management. Minimize loop diuretics. - Will check CRP and ESR prior to discharge, and weekly ESR and CRP therafter - Coumadin with hep gtt until therapeutic for goal INR 2.5-3.5 - Stop blood cultures - daily EKG # Hemolytic Anemia: Hct drifting down (30 admission-->25), now continues to be stable at 25 . Elevated LDH and low haptoglobin. Concern for mechanical alterations in her prosthetic zheng ve, such as leak leading to shearing (though patient adament no cardiac surgery). 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 Currently stable , will continue to monitor. - Continue to monitor (may also benefit from weekly CBC's after discharge) # Back/Hip Pain: Likely related to patient's chronic arthritis and degenerative changes wit h neural foraminal narrowing. MRI spine and hip without evidence of infarct, epidural absces s, septic arthritis, or osteomyelitis. # Elevated troponin: No chest pain or EKG changes. Trops peaked at 8 at [facility], trending downward, now 1.68. 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 Will stop checking troponins. # Hypothyroidism: Continue Levothyroxine 75 mcg qd. TSH wnl at 3.49. # Asthma: Stable. Continue home inhalers, albuterol prn. # Depression: Continue Zoloft 25 daily. # Chronic Arthritis: On Salsalate 500 qd at home. Will continue. F: Prudent A: salsalate S: none T: coumadin H: >30 degrees U: none, eating G: n/a CODE: DNR/DNI Patient was staffed with my attending, Dr Rosales, who agrees with my assessment/plan Annette King MD Internal Medicine, PGY2 Pager: [phone] Ezequiel Castro MD - 01/01/2010 12:47 PM PST CCU PROGRESS NOTE Hospital Day:5 Author; ARACELI KING MD Attending Physician: Ezequiel Rosales MD ID: Maria Alejandra Schaeffer is a 69 y/o female with h/o rheumatic heart disease s/p prosthetic AV and MR replacement ([employer]) in 1994, implantable loop recorder placed 11/2009, transferred with enterococcus bacteremia and suspected prosthetic valve endocarditis by SWEENEY criteria . Interval Hx: MRI obtained. PICC placed. Loop recorder removed. Give dose of Xanax 0.25 for sleep and anxiety Subjective: Still has hip pain. Otherwise no complaints. Vision normal, no focal weakness . Current Inpatient Medications: acetaminophen (aka TYLENOL) tablet 650 mg, 650 mg, Oral, Q6H PRN albuterol (aka PROVENTIL, VENTOLIN) 90 mcg/Actuation inhaler 2 Puff, 2 Puff, Inhalation, Q4 H PRN aluminum-magnesium hydroxide-simethicone (aka MAALOX; MYLANTA) 200-200-20 mg/5 mL suspensio n 15 mL, 15 mL, Oral, QID PRN ampicillin IV (minibag+) 2 g, 2 g, Intravenous, Q4H fluticasone (aka FLONASE) 50 mcg/Actuation nasal spray 2 Bandy, 2 Bandy, both nostrils, MARIA INES LY fluticasone-salmeterol (aka ADVAIR) 250-50 mcg/dose inhaler 1 Puff, 1 Puff, Inhalation, BID gentamicin (aka GARAMYCIN) IV 60 mg, 60 mg, Intravenous, Q8H heparin in D5W 100 units/mL IV infusion , 1-2,000 Units/hr, Intravenous, CONTINUOUS levothyroxine tablet 75 mcg, 75 mcg, Oral, DAILY lisinopril (aka PRINIVIL) tablet 5 mg, 5 mg, Oral, DAILY meclizine (aka ANTIVERT) tablet 12.5 mg, 12.5 mg, Oral, BID menthol-cetylpyridinium (aka CEPACOL) 1 Lozenge, 1 Lozenge, Oral, Q2H PRN polyethylene glycol (aka MIRALAX) powder 17 g, 17 g, Oral, DAILY PRN salsalate (aka DISALCID) tablet 500 mg, 500 mg, Oral, DAILY PRN senna-docusate (aka SENOKOT S) 8.6-50 mg 1 Tab, 1 Tab, Oral, BID sertraline (aka ZOLOFT) tablet 25 mg, 25 mg, Oral, DAILY sodium chloride (aka OCEAN) 0.65 % nasal spray 2 Bandy, 2 Bandy, both nostrils, PRN warfarin (aka COUMADIN) tablet 10 mg, 10 mg, Oral, QPM Physical Exam: Last Vitals: BP 119/62 | Pulse 50 | Temp 36.1 C (97 F) | RR 16 | Ht 1.664 m (5' 5.5") | Wt 63.4 kg (139 lb 12.4 oz) | SpO2 96% | BMI 22.91 kg/(m^2) O2 Delivery Device: None (room air) (01/01/10 0806) 24 Hour Vital Min/Max: Temp Min: 35.9 C (96.6 F) Max: 36.8 C (98.2 F) Systolic (24hrs), Min:115 mmHg, Max:154 mmHgDiastolic (24hrs), Min:51 mmHg, Max:86 mmHg Pulse Min: 50 Max: 54 Resp Min: 16 Max: 20 SpO2 Min: 96 % Max: 99 % Intake/Output Summary (Last 24 hours) at 01/01/10 1247 Last data filed at 01/01/10 0807 Gross per 24 hour Intake 1335.63 ml Output 2550 ml Net -1214.37 ml General Appearance: NAD HEENT: PERRL Respiratory: CTA bilat, no crackles or wheezing Cardiovascular: RRR, S1 S2 click, S3, 3/6 pranay shaped systolic best at LLSB. No erythema or induration overlying loop recorder Gastrointestinal: +BS, soft, nontender, nondistended Ext: No edema, 2+ DP pulses. No peripheral embolic stigmata Skin: Warm, well perfused Neurologic: 5/5 strength in bilateral lower extremities Recent Labs Basename 01/01/10 0534 12/31/09 0620 12/30/09 0611 12/29/09 0501 12/29/09 0445 12/27/09 202 2 NA 140 140 139 -- -- -- K 3.7 3.8 3.9 -- -- -- CL 109* 110* 107 -- -- -- BICARB 26 26 27 -- -- -- BUN 7 5* 6 -- -- -- CR 0.94 0.92 0.84 -- -- -- GLU 81 101* 107* -- -- -- CA 8.4* 8.5* 8.3* -- -- -- AST -- -- -- See cmnt 24 41 ALT -- -- -- See cmnt 15 17 AP -- -- -- See cmnt 60 65 TBILI -- -- -- See cmnt 1.0 0.9 TP -- -- -- See cmnt 5.8* 6.7 ALB -- -- -- See cmnt 2.5* 2.9* Recent Labs Basename 01/01/10 0534 12/31/09 0620 12/30/09 1655 12/27/09202112/26/09 WBC 6.6 6.8 9.1 -- -- RBC 2.86* 2.89* 3.16* -- -- HB 8.7* 8.8* 9.6* -- -- HCT 25.5* 25.6* 28.4* -- -- PLT 272 271 316 -- -- NEUTROPERC -- -- -- 83* 86.7* BANDPCT -- -- -- -- -- LYMPHPERC -- -- -- 8* 6.0* MONOPERC -- -- -- 8 7.0 BASOPERC -- -- -- 0 0.0 EOSPERC -- -- -- 0* 0.3 Lab Results Component Value Date INR 1.69* 01/01/2010 Lab Results Component Value Date TROPONIN 1.80* 12/29/2009 TROPONIN 2.87* 12/28/2009 TROPONIN 5.43* 12/28/2009 MRI Spine 12/31 IMPRESSION: Faint enhancement within the L5-S1 disk which is likely degenerative in nature given the posterior annular tear and loss of disk height.. No vertebral body enhancement or epidural collection to suggest epidural abscess or osteomyelitis. MRI Hips 12/31 Degenerative disease, no e/o septic arthritis or osteomyelitis Assessment and Plan: This is a 69 y/o female with h/o rheumatic heart disease s/p prostheti c AV and MR replacement (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 # Prosthetic Valve Endocarditis: Meets Sweeney Criteria with sustained bacteremia with suspec ebony organism (1 major) and fever + predisposing condition + vascular phenomena (conjunctival petechiae) (3 minor). Source is not clear, but wonder about transient bacteremic seeding from intravascular susana rce 2/2 loop device recorder recently implanted (otherwise no fluctuance or erythema)--> rem bernadette today. Fever curve coming down, resolution of leukocytosis, and abacteremic since 12/29 on ampici llin + gentamycin for enterococcus. PICC placement today, and plan for 6 weeks of ampicill in and gentamycin. Patient expressed desire to avoid surgery. Appreciated ID assistance. - implantable loop recorder removed - cont ampicillin 2g IV q4H - cont gentamycin 60mg IV q8H --> daily BMP, audiology consult placed. Pharm assisted man agement. Recheck trough and random level tomorrow AM. Minimize loop diuretics. - duration of amp and gent 6 weeks from last negative blood culture (12/29)--> around 2010. Will check CRP and ESR prior to discharge, and weekly ESR and CRP therafter - restart warfarin - daily blood cx until last set neg x 72 hours - daily EKG # Back/Hip Pain: Likely related to patient's chronic arthritis and degenerative changes wit h neural foraminal narrowing. MRI spine and hip without evidence of infarct, epidural absce ss, septic arthritis, or osteomyelitis. # Hemolytic Anemia: Hct drifting down (30 admission-->25), now stable at 25. Elevated LDH and low haptoglobin. Concern for mechanical alterations in her prosthetic valve, such as le ak leading to shearing. Also potential drug-induced hemolytic anemia associated with antibio tics--hemolytic anemia can be associated with ampicillin and rifampin. Currently stable, wi ll continue to monitor. - Continue to monitor (may also benefit from weekly CBC's after discharge) # Elevated troponin: No chest pain or EKG changes. Trops peaked at 8 at [facility], trending downward, now 1.68. Likely related to embolic phenomenon of endocarditis. Will stop checking troponins. TSH wnl at 3.49. # Hypothyroidism: Continue Levothyroxine 75 mcg qd. TSH wnl at 3.49. # Asthma: Stable. Continue home inhalers, albuterol prn. # Depression: Continue Zoloft 25 daily. # Chronic Arthritis: On Salsalate 500 qd at home. Will continue. F: Prudent A: salsalate S: none T: coumadin H: >30 degrees U: none, eating G: n/a CODE: DNR/DNI Patient was staffed with my attending, Dr Rosales, who agrees with my assessment/plan Annette King MD Internal Medicine, PGY2 Pager: [phone] Cardiology Attending:I personally interviewed the patient, performed the pertinent parts of the physical examination and personally formulated the plan with the resident. I agree wit h the residents documentation and have documented any additions or exceptions. ie, Araceli Farooq MD - 12/31/2009 3:20 PM PST CCU PROGRESS NOTE Hospital Day:4 Author; ARACELI KING MD Attending Physician: Ezequiel Rosales MD ID: Maria Alejandra Schaeffer is a 69 y/o female with h/o rheumatic heart disease s/p prosthetic AV and MR replacement ([employer]) in 1994, implantable loop recorder placed 11/2009, transferred with enterococcus bacteremia and suspected prosthetic valve endocarditis by SWEENEY criteria . Interval Hx: Went down for MRI, but was sent back up by radiology because of implantable loop recorder. All R arm peripheral IV's failed. Subjective: No vision changes. Does not notice hip pain today. No focal weakness. Current Inpatient Medications: albuterol (aka PROVENTIL, VENTOLIN) 90 mcg/Actuation inhaler 2 Puff, 2 Puff, Inhalation, Q4 H PRN aluminum-magnesium hydroxide-simethicone (aka MAALOX; MYLANTA) 200-200-20 mg/5 mL suspensio n 15 mL, 15 mL, Oral, QID PRN ampicillin IV (minibag+) 2 g, 2 g, Intravenous, Q4H fluticasone (aka FLONASE) 50 mcg/Actuation nasal spray 2 Bandy, 2 Bandy, both nostrils, MARIA INES LY fluticasone-salmeterol (aka ADVAIR) 250-50 mcg/dose inhaler 1 Puff, 1 Puff, Inhalation, BID gentamicin (aka GARAMYCIN) IV 60 mg, 60 mg, Intravenous, Q8H heparin in D5W 100 units/mL IV infusion , 1-2,000 Units/hr, Intravenous, CONTINUOUS levothyroxine tablet 75 mcg, 75 mcg, Oral, DAILY lisinopril (aka PRINIVIL) tablet 5 mg, 5 mg, Oral, DAILY meclizine (aka ANTIVERT) tablet 12.5 mg, 12.5 mg, Oral, BID menthol-cetylpyridinium (aka CEPACOL) 1 Lozenge, 1 Lozenge, Oral, Q2H PRN polyethylene glycol (aka MIRALAX) powder 17 g, 17 g, Oral, DAILY PRN salsalate (aka DISALCID) tablet 500 mg, 500 mg, Oral, DAILY PRN senna-docusate (aka SENOKOT S) 8.6-50 mg 1 Tab, 1 Tab, Oral, BID sertraline (aka ZOLOFT) tablet 25 mg, 25 mg, Oral, DAILY warfarin (aka COUMADIN) tablet 10 mg, 10 mg, Oral, QPM Physical Exam: Last Vitals: BP 153/90 | Pulse 52 | Temp 36.6 C (97.9 F) | RR 16 | Ht 1.664 m (5' 5.5") | Wt 63.4 kg (139 lb 12.4 oz) | SpO2 99% | BMI 22.91 kg/(m^2) O2 Delivery Device: None (marilu m air) (12/31/09 1130) 24 Hour Vital Min/Max: Systolic (24hrs), Min:114 mmHg, Max:153 mmHgDiastolic (24hrs), Min:54 mmHg, Max:90 mmHg Pulse Min: 51 Max: 60 Temp Min: 36.6 C (97.9 F) Max: 37.4 C (99.3 F) Resp Min: 16 Max: 20 SpO2 Min: 96 % Max: 99 % Intake/Output Summary (Last 24 hours) at 12/31/09 1529 Last data filed at 12/31/09 1300 Gross per 24 hour Intake 1895 ml Output 2300 ml Net -405 ml General Appearance: NAD HEENT: PERRL, + bilateral subconjunctival hemorrhage- able to count fingers at 2 feet Respiratory: CTA bilat, no crackles or wheezing Cardiovascular: RRR, S1 S2 click, S3, 3/6 pranay shaped systolic best at LLSB. No erythema or induration overlying loop recorder Gastrointestinal: +BS, soft, nontender, nondistended Ext: No edema, 2+ DP pulses. No peripheral embolic stigmata Back: Mild ttp of lower lumbar area and posterior to greater trochanter Skin: Warm, well perfused Neurologic: patellar hyperreflexia, but symmetric. Otherwise, 5/5 strength, normal sensatio n in bilateral lower extremities Chemistries: Last 72 Hours (or 3 results): Recent Labs Basename 12/31/09 0620 12/30/09 0611 12/29/09 0501 NA 140 139 See cmnt K 3.8 3.9 See cmnt CL 110* 107 See cmnt BICARB 26 27 See cmnt BUN 5* 6 See cmnt CR 0.92 0.84 See cmnt GLU 101* 107* Alrdy Drwn CA 8.5* 8.3* See cmnt MG -- -- -- PO4 -- -- -- CBC with diff last 72 hours (or 3 results) Recent Labs Basename 12/31/09 0620 12/30/09 1655 12/30/09 0611 WBC 6.8 9.1 6.9 HB 8.8* 9.6* 8.8* HCT 25.6* 28.4* 25.6* PLT 271 316 261 NEUTROPERC -- -- -- BANDPCT -- -- -- LYMPHPERC -- -- -- MONOPERC -- -- -- BASOPERC -- -- -- EOSPERC -- -- -- Date Value 12/30/2009 Dr Max 12/29/2009 Blood Culture Source..................: Blood Left Antecubital Result................... Preliminary: No growth at 1 day. 12/29/2009 Blood Culture Source..................: Blood Right Antecubital Result................... Preliminary: No growth at 1 day. 12/28/2009 Blood Culture Source................: Left Arm Gram Stain: G emanuel positive cocci in chains Enterococcus faecalis Fi nal ID Presumptive Identification Refer to Blood Culture collected 12/27/09 at 21:10 for complete identification and susceptibility results. Growth in Aerobi c Bottle Growth in Anaerobic Bottle Final Report 12/27/2009 Blood Culture Source................: Left Antecubital Gram Stain: Gram positive cocci in chains Enterococcus faecalis Final ID Gentamicin synergy highly probable. Growth in Anaerobic Bottle Growth in Aerobic Bottle E.faecalis Ampicillin S Vancomycin S Final Report 12/27/2009 Blood Culture Source................: Blood Gram Stain: Gram positive cocci in chains Enterococcus faecalis Final ID Presumptive Identification Refer to Blood Culture collected 12/27/09 at 21 :10 for complete identification and susceptibility results. Growth in Anaerobic Bottle Growth in Aerobic Bottle Final Report 12/27/2009 Blood Culture Source................: Right Antecubital Gram Stain: Gram positive cocci in chains Enterococcus faecalis Final ID Presumptive Identification Refer to Blood Culture collected at 21:10 for complete identification and susceptibility results. Growth in Aerobic Bottle Growth in Anaerobic Bottle Final Report Assessment and Plan: This is a 69 y/o female with h/o rheumatic heart disease s/p prostheti c AV and MR replacement (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 # Prosthetic Valve Endocarditis: Despite negative ARELY (NPV of ~ 90%), pt meets Sweeney Criteri a with sustained bacteremia with suspected organism (1 major) and fever + predisposing condi tion + vascular phenomena (conjunctival petechiae) (3 minor). Late stage endocarditis (>12 m onths) often associated with transient bacteemia-- wonder about bacteremic seeding associate d with loop recorder implantation vs other GI source such as diverticulosis/diverticulitis. General in-hospital mortality for PVE estimated around 22.8%. Patient with positive enterococcus bacteremia since 12/26, being treated with gent (day 6) and ampicillin (day 4). Will continue to check daily renal function and pending audiometry eval for aminoglycoside-related ototoxicity. Appreciate ID assistance. Managing medically, will need at least 4-6 weeks of therapy. Per ACC/AHA guidelines, Clas s III indication for surgery in 1st time uncomplicated prosthetic valve endocarditis with garcia sceptible organism. Additionally, pt is DNR/DNI and has adamantly expressed a desire not to pursue surgical treatment. - cont ampicillin 2g IV q4H (ROYER=<2 both at [facility] and [facility]) - cont gentamycin 60mg IV q8H --> daily BMP and pending audiology consult. Will try to av oid loop diuretics. - hep gtt to bridge to coumadin - daily blood cx until last set neg x 72 hours - PICC placement this afternoon (confirmed blood cx 12/29 NG x 48 hours) - EP to interrogate loop recorder before anticipated removal tomorrow - MRI lumbar spine/hip this afternoon (discussed with rads) # Back/Hip Pain: Possibly related to patient's chronic arthritis and fibromyalgia vs immune complex-related arthralgias in setting of bacteremia. However, concern for epidural abscess /osteo in setting of ongoing bacteremia. Patient would be willing to pursue drainage if epid ural abscess is found. - MRI LS and L hip # Hemolytic Anemia: Hct drifting down (30 admission-->25) with positive hemolytic labs. Co ncern for mechanical alterations in her prosthetic valve, such as leak leading to shearing. Also potential drug-induced hemolytic anemia associated with antibiotics--hemolytic anemia can be associated with ampicillin and rifampin. Will obtain a peripheral smear in AM and co ntinue to follow. # Hypothyroidism: Continue Levothyroxine 75 mcg qd. TSH wnl at 3.49. # Asthma: Stable. Continue home inhalers, albuterol prn. # Depression: Continue Zoloft 25 daily. # Chronic Arthritis: On Salsalate 500 qd at home. Will continue. F: Prudent A: none S: none T: heparin H: >30 degrees U: none, eating G: n/a CODE: DNR/DNI Patient was staffed with my attending, Dr Rosales, who agrees with my assessment/plan Annette King MD Internal Medicine, PGY2 Pager: [phone] Linsey Ding MD - 1 03/01/2009 11:23 PM PSTCCU Cross Cover Paged by MRI stating that the pt had an implanted cardiac loop recorder. The pt carries a c beny describing the device and it states that Dr. Webb should be called at [phone] befor e any MRI. technical administrator called Dr. Webb and he stated that the MRI should be deferred unless it was an emergency. The tech indicated we could call Dr. Webb in the am to inquire further abo ut whether it is safe to proceed with MRI given pt's clinical situation and the need for MRI . Will alert AM to team about the loop recorder and if it is ok to proceed w/ MRI, the radiol ogy tech recommended we call down to have pt placed in the morning schedule. LINSEY FUNES MD PGY-2 Internal Medicine ie, Araceli Farooq MD - 12/30/2009 12:44 PM PST CCU PROGRESS NOTE Hospital Day:3 Author; ARACELI KING MD Attending Physician: Ezequiel Rosales MD ID: Maria Alejandra Schaeffer is a 69 y/o female with h/o rheumatic heart disease s/p prosthetic AV and MR replacement ([employer]) in 1994, implantable loop recorder placed 11/2009, transferred with enterococcus bacteremia and concern for prosthetic valve endocarditis. Interval Hx: ARELY performed yesterday (see below for results) D/c'ed rifampin yesterday Subjective: Complaining of recurrent L hip pain this AM, which she states began with hospitalization Unsure if vision changes--thinks things are a little "hazy" related to just waking up No focal weakness No chest pain Current Inpatient Medications: albuterol (aka PROVENTIL, VENTOLIN) 90 mcg/Actuation inhaler 2 Puff, 2 Puff, Inhalation, Q4 H PRN ampicillin IV (minibag+) 2 g, 2 g, Intravenous, Q4H fluticasone (aka FLONASE) 50 mcg/Actuation nasal spray 2 Bandy, 2 Bandy, both nostrils, MARIA INES LY fluticasone-salmeterol (aka ADVAIR) 250-50 mcg/dose inhaler 1 Puff, 1 Puff, Inhalation, BID gentamicin (aka GARAMYCIN) IV 60 mg, 60 mg, Intravenous, Q8H heparin in D5W 100 units/mL IV infusion , 1-2,000 Units/hr, Intravenous, CONTINUOUS levothyroxine tablet 75 mcg, 75 mcg, Oral, DAILY lisinopril (aka PRINIVIL) tablet 5 mg, 5 mg, Oral, DAILY meclizine (aka ANTIVERT) tablet 12.5 mg, 12.5 mg, Oral, BID menthol-cetylpyridinium (aka CEPACOL) 1 Lozenge, 1 Lozenge, Oral, Q2H PRN polyethylene glycol (aka MIRALAX) powder 17 g, 17 g, Oral, DAILY PRN senna-docusate (aka SENOKOT S) 8.6-50 mg 1 Tab, 1 Tab, Oral, BID sertraline (aka ZOLOFT) tablet 25 mg, 25 mg, Oral, DAILY warfarin (aka COUMADIN) tablet 10 mg, 10 mg, Oral, QPM Physical Exam: Last Vitals: BP 110/51 | Pulse 54 | Temp 36.7 C (98.1 F) | RR 16 | Ht 1.664 m (5' 5.5") | Wt 61.1 kg (134 lb 11.2 oz) | SpO2 96% | BMI 22.07 kg/(m^2) O2 Delivery Device: Nasal can nula (12/30/09 1200) 24 Hour Vital Min/Max: Systolic (24hrs), Min:110 mmHg, Max:133 mmHgDiastolic (24hrs), Min:37 mmHg, Max:58 mmHgPuls e Min: 48 Max: 65 Temp Min: 36.5 C (97.7 F) Max: 37.4 C (99.3 F) Resp Min: 16 Max: 18 SpO2 Min: 96 % Max: 100 % Intake/Output Summary (Last 24 hours) at 12/30/09 1244 Last data filed at 12/30/09 1200 Gross per 24 hour Intake 2088.38 ml Output 2350 ml Net -261.62 ml General Appearance: NAD HEENT: PERRL, + bilateral subconjunctival hemorrhage- able to count fingers at 2 feet Respiratory: CTA bilat, no crackles or wheezing Cardiovascular: RRR, S1 S2 click, S3, 3/6 pranay shaped systolic best at LLSB. No erythem a or induration overlying loop recorder Gastrointestinal: +BS, soft, nontender, nondistended Ext: No edema, 2+ DP pulses. No peripheral embolic stigmata Back: Mild ttp of lower lumbar area and posterior to greater trochanter Skin: Warm, well perfused Neurologic: patellar hyperreflexia, but symmetric. Otherwise, 5/5 strength, normal sensati on in bilateral lower extremities Recent Labs Basename 12/30/09 0611 12/29/09 0501 12/29/09 0445 12/27/092021 NA 139 See cmnt 138 -- K 3.9 See cmnt 3.8 -- CL 107 See cmnt 107 -- BICARB 27 See cmnt 24 -- BUN 6 See cmnt 8 -- CR 0.84 See cmnt 0.72 -- GLU 107* Albren Clark 113* -- CA 8.3* See cmnt 8.4* -- AST -- See cmnt 24 41 ALT -- See cmnt 15 17 AP -- See cmnt 60 65 TBILI -- See cmnt 1.0 0.9 TP -- See cmnt 5.8* 6.7 ALB -- See cmnt 2.5* 2.9* Recent Labs Basename 12/30/09 0611 12/29/09 1512 12/29/09 0501 12/27/09202112/26/09 WBC 6.9 9.1 Melania Blevinsn -- -- RBC 2.87* 3.14* See cmnt -- -- HB 8.8* 9.6* See cmnt -- -- HCT 25.6* 28.1* See cmnt -- -- PLT 261 284 See cmnt -- -- NEUTROPERC -- -- -- 83* 86.7* BANDPCT -- -- -- -- -- LYMPHPERC -- -- -- 8* 6.0* MONOPERC -- -- -- 8 7.0 BASOPERC -- -- -- 0 0.0 EOSPERC -- -- -- 0* 0.3 Lab Results Component Value Date INR 1.50* 12/30/2009 Lab Results Component Value Date TROPONIN 1.80* 12/29/2009 TROPONIN 2.87* 12/28/2009 TROPONIN 5.43* 12/28/2009 ARELY 12/29: "The aortic and mitral prosthetic valves were well visualized in multiple views and without obvious vegetations. No valvular regurgitations. The left atrial appendage was well visuali zed in multiple views and no thrombus seen in GURDEEP. Full report to follow." Assessment and Plan: This is a 69 y/o female with h/o rheumatic heart disease s/p prostheti c AV and MR replacement (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 # Prosthetic Valve Endocarditis: Despite negative ARELY (NPV of ~ 90%), pt meets Sweeney Criter ia with sustained bacteremia with suspected organism (1 major) and fever + predisposing cond ition + vascular phenomena (conjunctival petechiae) (3 minor). Source is not clear, but wond er about transient bacteremic seeding from intravascular source 2/2 loop device recorder rec ently implanted (otherwise no fluctuance or erythema). Patient with positive enterococcus bacteremia since 12/26, being treated with gent + vanc + ampicillin. Called [facility] re: Amp ROYER, which is =2 --> therefore, will d/c Vancomycin a nd leave ampicillin with gentamycin for synergy. Will continue to check daily renal functio n and obtain an audiometry consult for baseline assessment while monitoring for aminoglycosi de-related ototoxicity. Appreciated ID assistance. Pt is DNR/DNI and has adamantly expressed a desire not to pursue surgical treatment even i f it were indicated (abscess, invasive organism, valve dysfunction, etc). - cont ampicillin 2g IV q4H - cont gentamycin 60mg IV q8H --> daily BMP and audiology consult - stop vancomycin - restart warfarin + hep gtt to bridge - daily blood cx until last set neg x 72 hours - daily EKG - will discuss re: removal of recorder (does not appear infected on exam) # Back/Hip Pain: Possibly related to patient's chronic arthritis and fibromyalgia vs immune complex-related arthralgias in setting of bacteremia. However, concern for epidural absce ss/osteo in setting of ongoing bacteremia. Patient would be willing to pursue drainage if ep idural abscess is found. - MRI back and hip # Anemia: Hct down-trending (30 admission-->25)--concern for hemolytic anemia in setting of prosthetic valve. Will check hemolytic labs in addition to iron studies - LDH, haptoglobin, retic - iron studies # Elevated troponin: No chest pain or EKG changes. Trops peaked at 8 at [facility], trending downward, now 1.68. Likely related to embolic phenomenon of endocarditis. Will stop checkin g troponins. TSH wnl at 3.49. # Hypothyroidism: Continue Levothyroxine 75 mcg qd. TSH wnl at 3.49. # Asthma: Stable. Continue home inhalers, albuterol prn. # Depression: Continue Zoloft 25 qd F: Prudent A: none S: none T: subq heparin H: >30 degrees U: none, eating G: n/a CODE: DNR/DNI Patient was staffed with my attending, Dr Rosales, who agrees with my assessment/plan Annette King MD Internal Medicine, PGY2 Pager: [phone] llison Jauregui MD - 12/29/2009 2:31 PM PSTTEE procedure note Indication: Evaluate prosthetic valves for vegetations Consent: After full PARQ signed consent obtained. Dr's: Shirley (fellow); Susan (staff) Description: Time out performed at the bedside. Oropharynx anesthetized with 5 ml of viscou s lidicaine and 3 ml of aerosolized lidocaine. Sedated with 3 mg of versed and 75 mcg of fen tanyl. Findings: The aortic and mitral prosthetic valves were well visualized in multiple views an d without obvious vegetations. No valvular regurgitations. The left atrial appendage was w ell visualized in multiple views and no thrombus seen in GURDEEP. Full report to follow. Complications: None. Patient tolerated the procedure well. PETER QUINTERO MD Fellow Cardiovascular Medicine I was present and personally supervised the whole procedure. Patient tolerated very well th e procedure with no complication. I agree with the above notes and recommendations. Please see final report of the ARELY for specific information about the findings Thank you for let us participate in the care of the patient ALLISON JAUREGUI MD [facility] [address] [id number] [facility] [address] Day Sa[place] - 2009 1:10 PM PSTTransesophageal echocardiogram completed. Final report to follow. Ezequiel Castro MD - 7:10 AM PST CCU PROGRESS NOTE Author: KERWIN ROSALES MD Attending Physician: Ezequiel Rosales MD ID: Maria Alejandra Schaeffer is a 69 y/o female with h/o rheumatic heart disease s/p prosthetic AV and MR replacement ([employer]) in 1994, implantable loop recorder placed 11/2009, transferred with enterococcus bacteremia and concern for prosthetic valve endocarditis. Interval Update: - ID consult: obtain ARELY; cont vanc + gent + rifampin, add ampicillin; consider imaging of L hip area to r/o abscess - ampicillin started S: pt well this am with no complaints. States the pain in her L hip has resolved. Denies f/ s/c, chest pain, or sob. Current facility-administered medications: albuterol (aka PROVENTIL, VENTOLIN) 90 mcg/Actuation inhaler 2 Puff, 2 Puff, Inhalation, Q4 H PRN, Araceli King MD, Last Dose: 2 Puff at 12/28/09 1904 ampicillin IV (minibag+) 2 g, 2 g, Intravenous, Q4H, Philippe Arevalo MD, Last Dose: 2 g at 1 02/28/09 0434 fluticasone (aka FLONASE) 50 mcg/Actuation nasal spray 2 Bandy, 2 Bandy, both nostrils, MARIA INES LY, Araceli King MD, Last Dose: 2 Bandy at 12/28/09 0822 fluticasone-salmeterol (aka ADVAIR) 250-50 mcg/dose inhaler 1 Puff, 1 Puff, Inhalation, BID , Araceli King MD, Last Dose: 1 Puff at 12/28/09 204 gentamicin (aka GARAMYCIN) IV 60 mg, 60 mg, Intravenous, Q8H, Araceli King MD, Last Dose: 60 mg at 12/29/09 0614 levothyroxine tablet 75 mcg, 75 mcg, Oral, DAILY, Araceli King MD, Last Dose: 75 mcg at 0819 lisinopril (aka PRINIVIL) tablet 5 mg, 5 mg, Oral, DAILY, Araceli King MD meclizine (aka ANTIVERT) tablet 12.5 mg, 12.5 mg, Oral, BID, Araceli King MD, Last Dose: 1 2.5 mg at 12/28/092040 menthol-cetylpyridinium (aka CEPACOL) 1 Lozenge, 1 Lozenge, Oral, Q2H PRN, Hailee Brenner, Last Dose: 1 Lozenge at 12/28/091999 polyethylene glycol (aka MIRALAX) powder 17 g, 17 g, Oral, DAILY PRN, Araceli King MD rifamPIN (aka RIFADIN) IV 300 mg, 300 mg, Intravenous, Q12H, Araceli King MD, Last Dose: 3 00 mg at 12/28/09 2315 senna-docusate (aka SENOKOT S) 8.6-50 mg 1 Tab, 1 Tab, Oral, BID, Araceli King MD, Last Do se: 1 Tab at 12/28/092040 sertraline (aka ZOLOFT) tablet 25 mg, 25 mg, Oral, DAILY, Araceli King MD, Last Dose: 25 m g at 12/28/09 0822 vancomycin (aka VANCOCIN) IV 1 g, 1 g, Intravenous, Q12H, Araceli King MD, Last Dose: 1 g at 12/28/09 2251 Physical Exam: BP 118/63 | Pulse 54 | Temp 36.8 C (98.2 F) | RR 14 | Ht 1.664 m (5' 5.5") | Wt 61.1 kg (134 lb 11.2 oz) | SpO2 99% | BMI 22.07 kg/(m^2) Systolic (24hrs), Min:118 mmHg, Max:136 mmHg Diastolic (24hrs), Min:63 mmHg, Max:68 mmHg Pulse Min: 54 Max: 69 Temp Min: 36.4 C (97.5 F) Max: 37.5 C (99.5 F) Resp Min: 14 Max: 16 SpO2 Min: 96 % Max: 99 % Intake/Output Summary (Last 24 hours) at 12/29/09 0710 Last data filed at 12/29/09 0600 Gross per 24 hour Intake 2070 ml Output 2525 ml Net -455 ml General Appearance: nad HEENT: + subconjunctival hemorrhage x1 on R and x1 on L Respiratory: ctab Cardiovascular: rrr. 3/6 pranay-shaped systolic murmur best heard upper sternal borders Gastrointestinal: bs+, soft, non-tender Ext: wwp, no evidence of vascular or immune phenomena Laboratory data: CBC with diff last 72 hours (or 3 results) Recent Labs Basename 12/29/0944412/27/092021 WBC 10.0 12.5*|12.5* HB 9.3* 10.4*|10.4* HCT 27.3* 30.9*|30.9* PLT 265 270|270 NEUTROPERC -- 83* BANDPCT -- -- LYMPHPERC -- 8* MONOPERC -- 8 BASOPERC -- 0 EOSPERC -- 0* Chemistries: Last 72 Hours (or 3 results): Recent Labs Basename 12/29/0944412/27/092021 NA 138 135|135 K 3.8 4.2|4.2 CL 107 104|104 BICARB 24 24|24 BUN 8 15|15 CR 0.72 0.82|0.82 GLU 113* 96|96 CA 8.4* 8.5*|8.5* MG -- 1.9 Culture data: Date Value Low High Status 12/27/2009 Preliminary Value: Blood Culture Source................: Left Antecubital Gram Stain: Gram positive cocci in chains Growth in Anaerobic Bottle Growth in Aerobic Bottle Further report to follow. 12/27/2009 Preliminary Value: Blood Culture Source................: Blood Gram Stain: Gram positive cocci in chains Growth in Anaerobic Bottle Growth in Aerobic Bottle Further report to follow. 12/27/2009 Preliminary Value: Blood Culture Source................: Right Antecubital Gram Stain: Gram positive cocci in chains Growth in Aerobic Bottle Growth in Anaerobic Bottle Further report to follow. Imaging: - no new imaging Assessment and Plan: This is a 69 y/o female with h/o rheumatic heart disease s/p prostheti c AV and MR replacement (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 Source is not clear, but wonder about intravascular source 2/2 loo p device recorder recently implanted. Pt currently growing enterococcus from [facility] (in addition to inhouse cultures which are positive for gram+ cocci), being treated with gentamycin + rifampin + vancomycin + ampicillin. Ampicillin is the drug of choice for enterococcus and synergy is achieved by ad ding gentamycin. Vancomycin is being used until ampicillin ROYER data becomes available from t he outside facility. If ROYER is low enough, vancomycin can be discontinued. Rifampin can be d iscontinued at this time per ID. Will obtain blood cultures daily until the last set has bee n negative x 72 hours. Appreciate ID's assistance. ARELY will help with prognostication only. Pt is DNR/DNI and has adamantly expressed a angelo e not to pursue surgical treatment even if it were indicated (abscess, invasive organism, va lve dysfunction, etc). - cont ampicillin 2g IV q4H - cont gentamycin 60mg IV q8H - cont vancomycin 1g q12H for now - d/c rifampin - f/u amp ROYER from [facility] - ARELY today - restart warfarin + hep gtt to bridge - daily blood cx until last set neg x 72 hours - daily EKG 2. Elevated troponin: No chest pain or EKG changes. Trops trending downward. Likely relate d to endocarditis. Unclear if supply/demand or NSTEMI. Continue double product control. 3. Hypothyroidism: Continue Levothyroxine 75 mcg qd. 4. Anemia: Mild normocytic anemia, likely secondary to anemia of chronic disease. Asymptoma tic. Will monitor for now. (will check a TSH) 5. Asthma: Stable. Continue home inhalers, albuterol prn. 6. Depression: Continue Zoloft 25 qd F: Prudent, 1500ml fluid restriction A: none S: none T: subq heparin H: >30 degrees U: none, eating G: n/a CODE: DNR/DNI Pt seen and discussed with CCU attending, Ezequiel Rosales MD, who agrees with the asses sment and plan. Cardiology Attending:I personally interviewed the patient, performed the pertinent parts of the physical examination and personally formulated the plan with the resident. I agree wit h the residents documentation and have documented any additions or exceptions. documented in thi s encounter Plan of Treatment + +------+--------+ + + | Name | Type | Priori | Associated Diagnoses | Order Schedule | | | | ty | | | + +------+--------+ + + | TRANSESOPHAGEAL | ECG | Routin | | One Time for 1 | | ECHOCARDIOGRAM, | | e | | Occurrences starting | | ADULT | | | | 12/28/2009 until | | | | | | 12/28/2009 | + +------+--------+ + + | MAGNESIUM, PLASMA | Lab | Routin | | Lab Add Ons for 1 | | | | e | | Occurrences starting | | | | | | 01/04/2010 until | | | | | | 01/04/2010 | + +------+--------+ + + documented as of this encounter Procedures + +--------+ + + + | Procedure Name | Priori | Date/Time | Associated Diagnosis | Comments | | | ty | | | | + +--------+ + + + | PROCEDURE NOTE | Routin | 03/15/2015 | | Results for this | | | e | 8:01 AM | | procedure are in the | | | | PST | | results section. | + +--------+ + + + | NE RMV CARD EVENT | Routin | 03/15/2015 | | Results for this | | RECRD,PT-ACT | e | 8:01 AM | | procedure are in the | | | | PST | | results section. | + +--------+ + + + | CARDIOLOGY | | 01/07/2010 | | Results for this | | | | 11:53 AM | | procedure are in the | | | | PST | | results section. | + +--------+ + + + | LAB REPORTS | | 01/07/2010 | | Results for this | | | | 11:53 AM | | procedure are in the | | | | PST | | results section. | + +--------+ + + + | RADIOLOGY | | 01/07/2010 | | Results for this | | | | 11:53 AM | | procedure are in the | | | | PST | | results section. | + +--------+ + + + | 12 LEAD ECG | Routin | 01/07/2010 | | Results for this | | | e | 6:13 AM | | procedure are in the | | | | PST | | results section. | + +--------+ + + + | INR | Routin | 01/07/2010 | | Results for this | | | e | 4:59 AM | | procedure are in the | | | | PST | | results section. | + +--------+ + + + | BASIC METABOLIC SET | Routin | 01/07/2010 | | Results for this | | (NA, K, CL, TCO2, | e | 4:59 AM | | procedure are in the | | BUN, CR, GLU, CA) | | PST | | results section. | + +--------+ + + + | CBC ONLY | Routin | 01/07/2010 | | Results for this | | | e | 4:59 AM | | procedure are in the | | | | PST | | results section. | + +--------+ + + + | APTT (ACT. PART. | Routin | 01/07/2010 | | Results for this | | THROMBO TIME) | e | 4:59 AM | | procedure are in the | | | | PST | | results section. | + +--------+ + + + | INR | Routin | 01/06/2010 | | Results for this | | | e | 3:45 PM | | procedure are in the | | | | PST | | results section. | + +--------+ + + + | 12 LEAD ECG | Routin | 01/06/2010 | | Results for this | | | e | 5:22 AM | | procedure are in the | | | | PST | | results section. | + +--------+ + + + | INR | Routin | 01/06/2010 | | Results for this | | | e | 4:45 AM | | procedure are in the | | | | PST | | results section. | + +--------+ + + + | BASIC METABOLIC SET | Routin | 01/06/2010 | | Results for this | | (NA, K, CL, TCO2, | e | 4:45 AM | | procedure are in the | | BUN, CR, GLU, CA) | | PST | | results section. | + +--------+ + + + | CBC ONLY | Routin | 01/06/2010 | | Results for this | | | e | 4:45 AM | | procedure are in the | | | | PST | | results section. | + +--------+ + + + | APTT (ACT. PART. | Routin | 01/06/2010 | | Results for this | | THROMBO TIME) | e | 4:45 AM | | procedure are in the | | | | PST | | results section. | + +--------+ + + + | GENTAMICIN, TROUGH | Routin | 01/06/2010 | | Results for this | | | e | 2:00 AM | | procedure are in the | | | | PST | | results section. | + +--------+ + + + | 12 LEAD ECG | Routin | 01/05/2010 | | Results for this | | | e | 6:35 AM | | procedure are in the | | | | PST | | results section. | + +--------+ + + + | INR | Routin | 01/05/2010 | | Results for this | | | e | 4:10 AM | | procedure are in the | | | | PST | | results section. | + +--------+ + + + | BASIC METABOLIC SET | Routin | 01/05/2010 | | Results for this | | (NA, K, CL, TCO2, | e | 4:10 AM | | procedure are in the | | BUN, CR, GLU, CA) | | PST | | results section. | + +--------+ + + + | CBC ONLY | Routin | 01/05/2010 | | Results for this | | | e | 4:10 AM | | procedure are in the | | | | PST | | results section. | + +--------+ + + + | APTT (ACT. PART. | Routin | 01/05/2010 | | Results for this | | THROMBO TIME) | e | 4:10 AM | | procedure are in the | | | | PST | | results section. | + +--------+ + + + | 12 LEAD ECG | Urgent | 01/04/2010 | | Results for this | | | | 1:20 PM | | procedure are in the | | | | PST | | results section. | + +--------+ + + + | 12 LEAD ECG | Routin | 01/04/2010 | | Results for this | | | e | 6:35 AM | | procedure are in the | | | | PST | | results section. | + +--------+ + + + | INR | Routin | 01/04/2010 | | Results for this | | | e | 4:30 AM | | procedure are in the | | | | PST | | results section. | + +--------+ + + + | BASIC METABOLIC SET | Routin | 01/04/2010 | | Results for this | | (NA, K, CL, TCO2, | e | 4:30 AM | | procedure are in the | | BUN, CR, GLU, CA) | | PST | | results section. | + +--------+ + + + | CBC ONLY | Routin | 01/04/2010 | | Results for this | | | e | 4:30 AM | | procedure are in the | | | | PST | | results section. | + +--------+ + + + | APTT (ACT. PART. | Routin | 01/04/2010 | | Results for this | | THROMBO TIME) | e | 4:30 AM | | procedure are in the | | | | PST | | results section. | + +--------+ + + + | MAGNESIUM, PLASMA | Routin | 01/04/2010 | | Results for this | | | e | 4:30 AM | | procedure are in the | | | | PST | | results section. | + +--------+ + + + | C. DIFFICILE TOXIN, | Urgent | 01/03/2010 | | Results for this | | W/REFLEX | | 7:26 PM | | procedure are in the | | CONFIRMATION IF | | PST | | results section. | | INDETERMINATE | | | | | | RESULTS | | | | | + +--------+ + + + | GENTAMICIN, TROUGH | Routin | 01/03/2010 | | Results for this | | | e | 9:12 AM | | procedure are in the | | | | PST | | results section. | + +--------+ + + + | INR | Routin | 01/03/2010 | | Results for this | | | e | 5:05 AM | | procedure are in the | | | | PST | | results section. | + +--------+ + + + | BASIC METABOLIC SET | Routin | 01/03/2010 | | Results for this | | (NA, K, CL, TCO2, | e | 5:05 AM | | procedure are in the | | BUN, CR, GLU, CA) | | PST | | results section. | + +--------+ + + + | C-REACTIVE PROTEIN | Routin | 01/03/2010 | | Results for this | | | e | 5:05 AM | | procedure are in the | | | | PST | | results section. | + +--------+ + + + | CBC ONLY | Routin | 01/03/2010 | | Results for this | | | e | 5:05 AM | | procedure are in the | | | | PST | | results section. | + +--------+ + + + | APTT (ACT. PART. | Routin | 01/03/2010 | | Results for this | | THROMBO TIME) | e | 5:05 AM | | procedure are in the | | | | PST | | results section. | + +--------+ + + + | SEDIMENTATION RATE | Routin | 01/03/2010 | | Results for this | | | e | 5:05 AM | | procedure are in the | | | | PST | | results section. | + +--------+ + + + | 12 LEAD ECG | Routin | 01/03/2010 | | Results for this | | | e | 4:56 AM | | procedure are in the | | | | PST | | results section. | + +--------+ + + + | APTT (ACT. PART. | Urgent | 01/02/2010 | | Results for this | | THROMBO TIME) | | 9:57 PM | | procedure are in the | | | | PST | | results section. | + +--------+ + + + | APTT (ACT. PART. | Urgent | 01/02/2010 | | Results for this | | THROMBO TIME) | | 9:01 PM | | procedure are in the | | | | PST | | results section. | + +--------+ + + + | APTT (ACT. PART. | Urgent | 01/02/2010 | | Results for this | | THROMBO TIME) | | 1:16 PM | | procedure are in the | | | | PST | | results section. | + +--------+ + + + | GENTAMICIN, PEAK | Routin | 01/02/2010 | | Results for this | | | e | 6:51 AM | | procedure are in the | | | | PST | | results section. | + +--------+ + + + | 12 LEAD ECG | Routin | 01/02/2010 | | Results for this | | | e | 5:57 AM | | procedure are in the | | | | PST | | results section. | + +--------+ + + + | 12 LEAD ECG | Routin | 01/02/2010 | | Results for this | | | e | 5:56 AM | | procedure are in the | | | | PST | | results section. | + +--------+ + + + | KESHAWN TROUGH | Routin | 01/02/2010 | | Results for this | | | e | 5:32 AM | | procedure are in the | | | | PST | | results section. | + +--------+ + + + | INR | Routin | 01/02/2010 | | Results for this | | | e | 3:53 AM | | procedure are in the | | | | PST | | results section. | + +--------+ + + + | GENTAMICIN, RANDOM | Routin | 01/02/2010 | | Results for this | | | e | 3:53 AM | | procedure are in the | | | | PST | | results section. | + +--------+ + + + | TROPONIN I, PLASMA | Routin | 01/02/2010 | | Results for this | | | e | 3:53 AM | | procedure are in the | | | | PST | | results section. | + +--------+ + + + | BASIC METABOLIC SET | Routin | 01/02/2010 | | Results for this | | (NA, K, CL, TCO2, | e | 3:53 AM | | procedure are in the | | BUN, CR, GLU, CA) | | PST | | results section. | + +--------+ + + + | CBC ONLY | Routin | 01/02/2010 | | Results for this | | | e | 3:53 AM | | procedure are in the | | | | PST | | results section. | + +--------+ + + + | APTT (ACT. PART. | Routin | 01/02/2010 | | Results for this | | THROMBO TIME) | e | 3:53 AM | | procedure are in the | | | | PST | | results section. | + +--------+ + + + | CULTURE, TISSUE | Routin | 01/01/2010 | | Results for this | | | e | 12:00 PM | | procedure are in the | | | | PST | | results section. | + +--------+ + + + | CULTURE, TISSUE | Routin | 01/01/2010 | | Results for this | | | e | 11:53 AM | | procedure are in the | | | | PST | | results section. | + +--------+ + + + | X-RAY PORTABLE CHEST | Urgent | 01/01/2010 | | Results for this | | 1 VIEW | | 9:20 AM | | procedure are in the | | | | PST | | results section. | + +--------+ + + + | 12 LEAD ECG | Routin | 01/01/2010 | | Results for this | | | e | 6:13 AM | | procedure are in the | | | | PST | | results section. | + +--------+ + + + | INR | Routin | 01/01/2010 | | Results for this | | | e | 5:34 AM | | procedure are in the | | | | PST | | results section. | + +--------+ + + + | BASIC METABOLIC SET | Routin | 01/01/2010 | | Results for this | | (NA, K, CL, TCO2, | e | 5:34 AM | | procedure are in the | | BUN, CR, GLU, CA) | | PST | | results section. | + +--------+ + + + | CBC ONLY | Routin | 01/01/2010 | | Results for this | | | e | 5:34 AM | | procedure are in the | | | | PST | | results section. | + +--------+ + + + | APTT (ACT. PART. | Routin | 01/01/2010 | | Results for this | | THROMBO TIME) | e | 5:34 AM | | procedure are in the | | | | PST | | results section. | + +--------+ + + + | CULTURE, BLOOD BACTI | Routin | 01/01/2010 | | Results for this | | & YEAST | e | 5:34 AM | | procedure are in the | | | | PST | | results section. | + +--------+ + + + | CULTURE, BLOOD BACTI | Routin | 12/31/2009 | | Results for this | | & YEAST | e | 11:02 PM | | procedure are in the | | | | PST | | results section. | + +--------+ + + + | MRI SPINE LUMBAR WWO | Urgent | 12/31/2009 | | Results for this | | CONTR | | 10:07 PM | | procedure are in the | | | | PST | | results section. | + +--------+ + + + | MRI HIPS BILAT WWO | Routin | 12/31/2009 | | Results for this | | CONT | e | 9:35 PM | | procedure are in the | | | | PST | | results section. | + +--------+ + + + | 12 LEAD ECG | Routin | 12/31/2009 | | Results for this | | | e | 7:26 AM | | procedure are in the | | | | PST | | results section. | + +--------+ + + + | INR | Routin | 12/31/2009 | | Results for this | | | e | 6:20 AM | | procedure are in the | | | | PST | | results section. | + +--------+ + + + | BASIC METABOLIC SET | Routin | 12/31/2009 | | Results for this | | (NA, K, CL, TCO2, | e | 6:20 AM | | procedure are in the | | BUN, CR, GLU, CA) | | PST | | results section. | + +--------+ + + + | CBC ONLY | Routin | 12/31/2009 | | Results for this | | | e | 6:20 AM | | procedure are in the | | | | PST | | results section. | + +--------+ + + + | APTT (ACT. PART. | Routin | 12/31/2009 | | Results for this | | THROMBO TIME) | e | 6:20 AM | | procedure are in the | | | | PST | | results section. | + +--------+ + + + | CULTURE, BLOOD BACTI | Routin | 12/31/2009 | | Results for this | | & YEAST | e | 6:20 AM | | procedure are in the | | | | PST | | results section. | + +--------+ + + + | CULTURE, BLOOD BACTI | Routin | 12/30/2009 | | Results for this | | & YEAST | e | 10:01 PM | | procedure are in the | | | | PST | | results section. | + +--------+ + + + | CBC ONLY | Routin | 12/30/2009 | | Results for this | | | e | 4:55 PM | | procedure are in the | | | | PST | | results section. | + +--------+ + + + | RETICULOCYTE COUNT, | Routin | 12/30/2009 | | Results for this | | BLOOD | e | 4:55 PM | | procedure are in the | | | | PST | | results section. | + +--------+ + + + | CULTURE, BLOOD BACTI | Routin | 12/30/2009 | | Results for this | | & YEAST | e | 4:55 PM | | procedure are in the | | | | PST | | results section. | + +--------+ + + + | FERRITIN | Routin | 12/30/2009 | | Results for this | | | e | 4:55 PM | | procedure are in the | | | | PST | | results section. | + +--------+ + + + | HAPTOGLOBIN | Routin | 12/30/2009 | | Results for this | | | e | 4:55 PM | | procedure are in the | | | | PST | | results section. | + +--------+ + + + | LDH TOTAL, PLASMA | Routin | 12/30/2009 | | Results for this | | | e | 4:55 PM | | procedure are in the | | | | PST | | results section. | + +--------+ + + + | IRON AND TIBC, SERUM | Routin | 12/30/2009 | | Results for this | | | e | 4:55 PM | | procedure are in the | | | | PST | | results section. | + +--------+ + + + | INR | Routin | 12/30/2009 | | Results for this | | | e | 6:11 AM | | procedure are in the | | | | PST | | results section. | + +--------+ + + + | BASIC METABOLIC SET | Routin | 12/30/2009 | | Results for this | | (NA, K, CL, TCO2, | e | 6:11 AM | | procedure are in the | | BUN, CR, GLU, CA) | | PST | | results section. | + +--------+ + + + | CBC ONLY | Routin | 12/30/2009 | | Results for this | | | e | 6:11 AM | | procedure are in the | | | | PST | | results section. | + +--------+ + + + | APTT (ACT. PART. | Routin | 12/30/2009 | | Results for this | | THROMBO TIME) | e | 6:11 AM | | procedure are in the | | | | PST | | results section. | + +--------+ + + + | 12 LEAD ECG | Routin | 12/30/2009 | | Results for this | | | e | 4:56 AM | | procedure are in the | | | | PST | | results section. | + +--------+ + + + | RESP CARE THERAPY | Routin | 12/30/2009 | | Results for this | | | e | 3:39 AM | | procedure are in the | | | | PST | | results section. | + +--------+ + + + | APTT (ACT. PART. | Routin | 12/30/2009 | | Results for this | | THROMBO TIME) | e | 12:43 AM | | procedure are in the | | | | PST | | results section. | + +--------+ + + + | APTT (ACT. PART. | Routin | 12/29/2009 | | Results for this | | THROMBO TIME) | e | 6:22 PM | | procedure are in the | | | | PST | | results section. | + +--------+ + + + | CBC ONLY | Routin | 12/29/2009 | | Results for this | | | e | 3:12 PM | | procedure are in the | | | | PST | | results section. | + +--------+ + + + | CULTURE, BLOOD BACTI | Routin | 12/29/2009 | | Results for this | | & YEAST | e | 3:07 PM | | procedure are in the | | | | PST | | results section. | + +--------+ + + + | CULTURE, BLOOD BACTI | Routin | 12/29/2009 | | Results for this | | & YEAST | e | 3:07 PM | | procedure are in the | | | | PST | | results section. | + +--------+ + + + | TROPONIN I, PLASMA | Routin | 12/29/2009 | | Results for this | | | e | 1:12 PM | | procedure are in the | | | | PST | | results section. | + +--------+ + + + | VANCOMYCIN, TROUGH | Routin | 12/29/2009 | | Results for this | | | e | 8:18 AM | | procedure are in the | | | | PST | | results section. | + +--------+ + + + | INR | Routin | 12/29/2009 | | Results for this | | | e | 5:01 AM | | procedure are in the | | | | PST | | results section. | + +--------+ + + + | LIVER SET | Routin | 12/29/2009 | | Results for this | | (AST,ALT,BILI | e | 5:01 AM | | procedure are in the | | TOTAL,BILI | | PST | | results section. | | DIRECT,ALK | | | | | | PHOS,ALB,PROT TOTAL) | | | | | + +--------+ + + + | BASIC METABOLIC SET | Routin | 12/29/2009 | | Results for this | | (NA, K, CL, TCO2, | e | 5:01 AM | | procedure are in the | | BUN, CR, GLU, CA) | | PST | | results section. | + +--------+ + + + | CBC ONLY | Routin | 12/29/2009 | | Results for this | | | e | 5:01 AM | | procedure are in the | | | | PST | | results section. | + +--------+ + + + | RESP CARE THERAPY | Routin | 12/29/2009 | | Results for this | | | e | 4:56 AM | | procedure are in the | | | | PST | | results section. | + +--------+ + + + | INR | Routin | 12/29/2009 | | Results for this | | | e | 4:45 AM | | procedure are in the | | | | PST | | results section. | + +--------+ + + + | LIVER SET | Routin | 12/29/2009 | | Results for this | | (AST,ALT,BILI | e | 4:45 AM | | procedure are in the | | TOTAL,BILI | | PST | | results section. | | DIRECT,ALK | | | | | | PHOS,ALB,PROT TOTAL) | | | | | + +--------+ + + + | BASIC METABOLIC SET | Urgent | 12/29/2009 | | Results for this | | (NA, K, CL, TCO2, | | 4:45 AM | | procedure are in the | | BUN, CR, GLU, CA) | | PST | | results section. | + +--------+ + + + | CBC ONLY | Routin | 12/29/2009 | | Results for this | | | e | 4:45 AM | | procedure are in the | | | | PST | | results section. | + +--------+ + + + | TRANSESOPHAGEAL | | 12/29/2009 | | Results for this | | ECHOCARDIOGRAM, | | 12:00 AM | | procedure are in the | | ADULT | | PST | | results section. | + +--------+ + + + | GENTAMICIN, PEAK | Routin | 12/28/2009 | | Results for this | | | e | 11:15 PM | | procedure are in the | | | | PST | | results section. | + +--------+ + + + | GENTAMICIN, TROUGH | Routin | 12/28/2009 | | Results for this | | | e | 8:44 PM | | procedure are in the | | | | PST | | results section. | + +--------+ + + + | INR | Routin | 12/28/2009 | | Results for this | | | e | 7:10 PM | | procedure are in the | | | | PST | | results section. | + +--------+ + + + | TROPONIN I, PLASMA | Routin | 12/28/2009 | | Results for this | | | e | 4:42 PM | | procedure are in the | | | | PST | | results section. | + +--------+ + + + | TSH | Routin | 12/28/2009 | | Results for this | | | e | 4:51 AM | | procedure are in the | | | | PST | | results section. | + +--------+ + + + | CKMB,SERUM | Routin | 12/28/2009 | | Results for this | | | e | 4:45 AM | | procedure are in the | | | | PST | | results section. | + +--------+ + + + | NOTIFICATION | Routin | 12/28/2009 | | Results for this | | | e | 4:15 AM | | procedure are in the | | | | PST | | results section. | + +--------+ + + + | CULTURE, BLOOD BACTI | Urgent | 12/28/2009 | | Results for this | | & YEAST | | 4:15 AM | | procedure are in the | | | | PST | | results section. | + +--------+ + + + | INR | Routin | 12/28/2009 | | Results for this | | | e | 3:38 AM | | procedure are in the | | | | PST | | results section. | + +--------+ + + + | TROPONIN I, PLASMA | Routin | 12/28/2009 | | Results for this | | | e | 3:38 AM | | procedure are in the | | | | PST | | results section. | + +--------+ + + + | RESP CARE THERAPY | Routin | 12/28/2009 | | Results for this | | | e | 1:23 AM | | procedure are in the | | | | PST | | results section. | + +--------+ + + + | NOTIFICATION | Routin | 12/27/2009 | | Results for this | | | e | 10:47 PM | | procedure are in the | | | | PST | | results section. | + +--------+ + + + | NOTIFICATION | Routin | 12/27/2009 | | Results for this | | | e | 10:47 PM | | procedure are in the | | | | PST | | results section. | + +--------+ + + + | INR | Routin | 12/27/2009 | | Results for this | | | e | 10:47 PM | | procedure are in the | | | | PST | | results section. | + +--------+ + + + | CULTURE, BLOOD BACTI | Routin | 12/27/2009 | | Results for this | | & YEAST | e | 10:47 PM | | procedure are in the | | | | PST | | results section. | + +--------+ + + + | CULTURE, BLOOD BACTI | Urgent | 12/27/2009 | | Results for this | | & YEAST | | 10:47 PM | | procedure are in the | | | | PST | | results section. | + +--------+ + + + | X-RAY CHEST 2 VIEW | Routin | 12/27/2009 | | Results for this | | | e | 10:18 PM | | procedure are in the | | | | PST | | results section. | + +--------+ + + + | LAB REPORTS | | 12/27/2009 | | Results for this | | | | 10:02 PM | | procedure are in the | | | | PST | | results section. | + +--------+ + + + | RESP CARE THERAPY | Routin | 12/27/2009 | | Results for this | | | e | 10:00 PM | | procedure are in the | | | | PST | | results section. | + +--------+ + + + | NOTIFICATION | Routin | 12/27/2009 | | Results for this | | | e | 8:22 PM | | procedure are in the | | | | PST | | results section. | + +--------+ + + + | DIFFERENTIAL | Routin | 12/27/2009 | | Results for this | | | e | 8:22 PM | | procedure are in the | | | | PST | | results section. | + +--------+ + + + | CBC, WITH | Routin | 12/27/2009 | | Results for this | | DIFFERENTIAL | e | 8:22 PM | | procedure are in the | | | | PST | | results section. | + +--------+ + + + | TROPONIN I, PLASMA | Routin | 12/27/2009 | | Results for this | | | e | 8:22 PM | | procedure are in the | | | | PST | | results section. | + +--------+ + + + | COMPLETE METABOLIC | Routin | 12/27/2009 | | Results for this | | SET | e | 8:22 PM | | procedure are in the | | (NA,K,CL,CO2,BUN,CRE | | PST | | results section. | | AT,GLUC,CA,AST,ALT,B | | | | | | DAGMAR TOTAL,ALK | | | | | | PHOS,ALB,PROT TOTAL) | | | | | + +--------+ + + + | BASIC METABOLIC SET | Routin | 12/27/2009 | | Results for this | | (NA, K, CL, TCO2, | e | 8:22 PM | | procedure are in the | | BUN, CR, GLU, CA) | | PST | | results section. | + +--------+ + + + | CBC ONLY | Routin | 12/27/2009 | | Results for this | | | e | 8:22 PM | | procedure are in the | | | | PST | | results section. | + +--------+ + + + | CULTURE, BLOOD BACTI | Urgent | 12/27/2009 | | Results for this | | & YEAST | | 8:22 PM | | procedure are in the | | | | PST | | results section. | + +--------+ + + + | MAGNESIUM, PLASMA | Routin | 12/27/2009 | | Results for this | | | e | 8:22 PM | | procedure are in the | | | | PST | | results section. | + +--------+ + + + | CK, PLASMA | Routin | 12/27/2009 | | Results for this | | | e | 8:22 PM | | procedure are in the | | | | PST | | results section. | + +--------+ + + + | 12 LEAD ECG | Urgent | 12/27/2009 | | Results for this | | | | 7:02 PM | | procedure are in the | | | | PST | | results section. | + +--------+ + + + documented in this encounter Results PROCEDURE NOTE (03/15/2015 8:01 AM PST)NE RMV CARD EVENT RECRD,PT-ACT (03/15/2015 8:01 AM PST)LAB REPORTS (01/07/2010 11:53 AM PST) + + + | Narrative | Performed At | + + + | | | + + + + + | Procedure Note | + + | Poli Grubbs - 01/09/2010 10:22 PM PST | | | + + RADIOLOGY (01/07/2010 11:53 AM PST) + + + | Narrative | Performed At | + + + | | | + + + + + | Procedure Note | + + | Poli Grubbs - 01/11/2010 8:03 PM PST | | | + + CARDIOLOGY (01/07/2010 11:53 AM PST) + + + | Narrative | Performed At | + + + | | | + + + + + | Procedure Note | + + | Other, Faculty - 01/09/2010 10:22 PM PST | | | + + 12 LEAD ECG (01/07/2010 6:13 AM PST) + + + + + + | Component | Value | Ref Range | Performed | Pathologist | | | | | At | Signature | + + + + + + | VENTRICULAR | 48 | BPM | [facility] | | | RATE | | | OF | | | | | | CARDIOLOGY | | + + + + + + | ATRIAL RATE | 48 | BPM | [facility] | | | | | | OF | | | | | | CARDIOLOGY | | + + + + + + | P-R | 184 | ms | [facility] | | | INTERVAL | | | OF | | | | | | CARDIOLOGY | | + + + + + + | QRS | 86 | ms | [facility] | | | DURATION | | | OF | | | | | | CARDIOLOGY | | + + + + + + | QT | 476 | ms | [facility] | | | | | | OF | | | | | | CARDIOLOGY | | + + + + + + | QTC | 425 | ms | [facility] | | | | | | OF | | | | | | CARDIOLOGY | | + + + + + + | R AXIS | 14 | degrees | [facility] | | | | | | OF | | | | | | CARDIOLOGY | | + + + + + + | T AXIS | 221 | degrees | [facility] | | | | | | OF | | | | | | CARDIOLOGY | | + + + + + + | EKG | Marked sinus | | [facility] | | | DIAGNOSIS | bradycardiaT wave | | OF | | | | abnormality, consider | | CARDIOLOGY | | | | inferior ischemiaT wave | | | | | | abnormality, consider | | | | | | anterolateral | | | | | | ischemiaAbnormal | | | | | | ECGConfirmed by | | | | | | GAURANG OJEDA ([id number]) on | | | | | | 01/07/2010 7:48:04 PM | | | | + + + + + + + + | Specimen | + + | | + + + + + | Narrative | Performed At | + + + | Please click | [facility] | | on view image for the detailed interpretation from Neuro Kinetics results. | CARDIOLOGY | + + + + + + + + | Performing | Address | City/State/Zipcode | Phone Number | | Organization | | | | + + + + + | [facility] | [address] | [place], [place] | | | CARDIOLOGY | [facility] | [address] | | + + + + + APTT (ACT. PART. THROMBO TIME) (01/07/2010 4:59 AM PST) + + + + + + | Component | Value | Ref Range | Performed | Pathologist | | | | | At | Signature | + + + + + + | APTT | 83.8 (H)Comment: | 26.0 - 36.0 | [facility] | | | | APTT Therapeutic | seconds | DEPARTMENT | | | | Range | | OF | | | | | | PATHOLOGY | | | | (75-120) sec | | | | | | Heparin | | | | | | levels of 0.35-0.7 U/mL | | | | + + + + + + + + | Specimen | + + | Blood - Blood | + + + + + + + | Performing | Address | City/State/Zipcode | Phone Number | | Organization | | | | + + + + + | [facility] | [address] | [place] [address] | | | PATHOLOGY | [address] | | | + + + + + INR (01/07/2010 4:59 AM PST) + + + + + + | Component | Value | Ref Range | Performed | Pathologist | | | | | At | Signature | + + + + + + | INR | 3.27 (H)Comment: | 0.90 - 1.20 INR | [...] | + + + + + | [facility] | [address] | [place] [address] | | | PATHOLOGY | [address] | | | + + + + + BASIC METABOLIC SET (NA, K, CL, TCO2, BUN, CR, GLU, CA) (01/07/2010 4:59 AM PST) + + + + + + | Component | Value | Ref Range | Performed | Pathologist | | | | | At | Signature | + + + + + + | GLUCOSE, | 84 | 60 - 99 mg/dL | [facility] | | | PLASMA | | | DEPARTMENT | | | (LAB) | | | OF | | | | | | PATHOLOGY | | + + + + + + | BUN, PLASMA | 10 | 6 - 20 mg/dL | [facility] | | | (LAB) | | | DEPARTMENT | | | | | | OF | | | | | | PATHOLOGY | | + + + + + + | CREATININE | 1.03 | 0.60 - 1.10 | [facility] | | | PLASMA | | mg/dL | DEPARTMENT | | | (LAB) | | | OF | | | | | | PATHOLOGY | | + + + + + + | SODIUM, | 139 [...] + + + + | CHLORIDE, | 111 (H) | 97 - 108 mmol/L | [facility] | | | PLASMA | | | DEPARTMENT | | | (LAB) | | | OF | | | | | | PATHOLOGY | | + + + + + + | TOTAL CO2, | 23Comment: New Total | 22 - 29 mmol/L | [facility] | | | PLASMA | CO2 reference range | | DEPARTMENT | | | (LAB) | effective 12/31/09. | | OF | | | | | | PATHOLOGY | | + + + + + + | CALCIUM, | 8.5 (L) | 8.6 - 10.2 | [facility] | | | PLASMA | | mg/dL | DEPARTMENT | | | (LAB) | | | OF | | | | | | PATHOLOGY | | + + + + + + | ANION GAP | 5 | 4 - 11 mmol/L | [facility] [...] | + + + + + | [facility] | [address] | [place] [address] | | | PATHOLOGY | [address] | | | + + + + + CBC ONLY (01/07/2010 4:59 AM PST) + + + + + + | Component | Value | Ref Range | Performed | Pathologist | | | | | At | Signature | + + + + + + | WHITE CELL | 5.9 | 4.4 - 11.0 K/cu | [facility] | | | COUNT | | mm | DEPARTMENT | | | | | | OF | | | | | | PATHOLOGY | | + + + + + + | RED CELL | 2.94 (L) | 4.00 - 5.20 | [facility] | | | COUNT | | M/cu mm | DEPARTMENT | | | | | | OF | | | | | | PATHOLOGY | | + + + + + + | HEMOGLOBIN | 8.9 (L) | 12.0 - 16.0 | [facility] | | | | | g/dL | DEPARTMENT | | | | | | OF | | | | | | PATHOLOGY | | + + + + + + | HEMATOCRIT | 26.2 (L) | 36.0 - 46.0 % | [facility] | | | | | | DEPARTMENT | | | | | | OF | | | | | | PATHOLOGY | | + + + + + + | MCV | 89.0 | 80.0 - 96.0 fL | [facility] | | | | | | DEPARTMENT | | | | | | OF | | | | | | PATHOLOGY | | + + + + + + | MCHC | 34.1 | 33.4 - 35.5 | [facility] | | | | | g/dL | DEPARTMENT | | | | | | OF | | | | | | PATHOLOGY | | + + + + + + | RDW | 14.9 | 11.5 - 15.0 % | [facility] | | | | | | DEPARTMENT | | | | | | OF | | | | | | PATHOLOGY | | + + + + + + | PLATELET | 327 | 150 - 400 K/cu | [facility] [...] | + + + + + | [facility] | [address] | [place] [address] | | | PATHOLOGY | [address] | | | + + + + + INR (01/06/2010 3:45 PM PST) + + + + + + | Component | Value | Ref Range | Performed | Pathologist | | | | | At | Signature | + + + + + + | INR | 2.72 (H)Comment: | 0.90 - 1.20 INR | [...] | + + + + + | [facility] DEPARTMENT | [address] | [place] [address] | | | PATHOLOGY | [address] | | | + + + + + 12 LEAD ECG (01/06/2010 5:22 AM PST) + + + + + + | Component | Value | Ref Range | Performed | Pathologist | | | | | At | Signature | + + + + + + | VENTRICULAR | 49 | BPM | [facility] | | | RATE | | | OF | | | | | | CARDIOLOGY | | + + + + + + | ATRIAL RATE | 49 | BPM | [facility] | | | | | | OF | | | | | | CARDIOLOGY | | + + + + + + | P-R | 190 | ms | [facility] | | | INTERVAL | | | OF | | | | | | CARDIOLOGY | | + + + + + + | QRS | 86 | ms | [facility] | | | DURATION | | | OF | | | | | | CARDIOLOGY | | + + + + + + | QT | 490 | ms | [facility] | | | | | | OF | | | | | | CARDIOLOGY | | + + + + + + | QTC | 442 | ms | [facility] | | | | | | OF | | | | | | CARDIOLOGY | | + + + + + + | P AXIS | -74 | degrees | [facility] | | | | | | OF | | | | | | CARDIOLOGY | | + + + + + + | R AXIS | 6 | degrees | [facility] | | | | | | OF | | | | | | CARDIOLOGY | | + + + + + + | T AXIS | 240 | degrees | [facility] | | | | | | OF | | | | | | CARDIOLOGY | | + + + + + + | EKG | Unusual P axis, possible | | [facility] | | | DIAGNOSIS | ectopic atrial | | OF | | | | bradycardiaST & T wave | | CARDIOLOGY | | | | abnormality, consider | | | | | | inferolateral | | | | | | ischemiaProlonged | | | | | | QTAbnormal ECGConfirmed | | | | | | by CHIOMA WEBB ([id number]) on | | | | | | 01/06/2010 2:46:30 PM | | | | + + + + + + + + | Specimen | + + | | + + + + + | Narrative | Performed At | + + + | Please click | [facility] | | on view image for the detailed interpretation from Neuro Kinetics results. | CARDIOLOGY | + + + + + + + + | Performing | Address | City/State/Zipcode | Phone Number | | Organization | | | | + + + + + | [facility] | [address] | [place], [place] | | | CARDIOLOGY | [address] | [address] | | + + + + + APTT (ACT. PART. THROMBO TIME) (01/06/2010 4:45 AM PST) + + + + + + | Component | Value | Ref Range | Performed | Pathologist | | | | | At | Signature | + + + + + + | APTT | 70.3 (H)Comment: | 26.0 - 36.0 | [facility] | | | | APTT Therapeutic | seconds | DEPARTMENT | | | | Range | | OF | | | | | | PATHOLOGY | | | | (75-120) sec | | | | | | Heparin | | | | | | levels of 0.35-0.7 U/mL | | | | + + + + + + + + | Specimen | + + | Blood - Blood | + + + + + + + | Performing | Address | City/State/Zipcode | Phone Number | | Organization | | | | + + + + + | [facility] | [address] | [place] [address] | | | PATHOLOGY | [address] | | | + + + + + INR (01/06/2010 4:45 AM PST) + + + + + + | Component | Value | Ref Range | Performed | Pathologist | | | | | At | Signature | + + + + + + | INR | 2.41 (H)Comment: | 0.90 - 1.20 INR | [...] | + + + + + | [facility] | [address] | [place] [address] | | | PATHOLOGY | [address] | | | + + + + + BASIC METABOLIC SET (NA, K, CL, TCO2, BUN, CR, GLU, CA) (01/06/2010 4:45 AM PST) + + + + + + | Component | Value | Ref Range | Performed | Pathologist | | | | | At | Signature | + + + + + + | GLUCOSE, | 79 | 60 - 99 mg/dL | [facility] | | | PLASMA | | | DEPARTMENT | | | (LAB) | | | OF | | | | | | PATHOLOGY | | + + + + + + | BUN, PLASMA | 11 | 6 - 20 mg/dL | [facility] | | | (LAB) | | | DEPARTMENT | | | | | | OF | | | | | | PATHOLOGY | | + + + + + + | CREATININE | 1.11 (H) | 0.60 - 1.10 | [facility] | | | PLASMA | | mg/dL | DEPARTMENT | | | (LAB) | | | OF | | | | | | PATHOLOGY | | + + + + + + | SODIUM, | 142 | 134 - 143 | [facility] | | | PLASMA | | mmol/L | DEPARTMENT | | | (LAB) | | | OF | | | | | | PATHOLOGY | | + + + + + + | POTASSIUM, | 4.1 | 3.4 - 5.0 | [facility] | | | PLASMA | | mmol/L | DEPARTMENT | | | (LAB) | | | OF | | | | | | PATHOLOGY | | + + + + + + | CHLORIDE, | 110 (H) | 97 - 108 mmol/L | [facility] | | | PLASMA | | | DEPARTMENT | | | (LAB) | | | OF | | | | | | PATHOLOGY | | + + + + + + | TOTAL CO2, | 24Comment: New Total | 22 - 29 mmol/L | [facility] | | | PLASMA | CO2 reference range | | DEPARTMENT | | | (LAB) | effective 12/31/09. | | OF | | | | | | PATHOLOGY | | + + + + + + | CALCIUM, | 8.8 | 8.6 - 10.2 | [facility] | | | PLASMA | | mg/dL | DEPARTMENT | | | (LAB) | | | OF | | | | | | PATHOLOGY | | + + + + + + | ANION GAP | 8 | 4 - 11 mmol/L | [facility] [...] DEPARTMENT OF | [address] | [place] [address] | | | PATHOLOGY | [address] | | | + + + + + CBC ONLY (01/06/2010 4:45 AM PST) + + + + + [...] + + + | RED CELL | 3.02 (L) | 4.00 - 5.20 | [facility] | | | COUNT | | M/cu mm | DEPARTMENT | | | | | | OF | | | | | | PATHOLOGY | | + + + + + + | HEMOGLOBIN | 9.0 (L) | 12.0 - 16.0 | [facility] | | | | | g/dL | DEPARTMENT | | | | | | OF | | | | | | PATHOLOGY | | + + + + + + | HEMATOCRIT | 26.9 (L) | 36.0 - 46.0 % | [facility] | | | | | | DEPARTMENT | | | | | | OF | | | | | | PATHOLOGY | | + + + + + + | MCV | 89.2 | 80.0 - 96.0 fL | [facility] | | | | | | DEPARTMENT | | | | | | OF | | | | | | PATHOLOGY | | + + + + + + | MCHC | 33.6 | 33.4 - 35.5 | [facility] | | | | | g/dL | DEPARTMENT | | | | | | OF | | | | | | PATHOLOGY | | + + + + + + | RDW | 15.1 (H) | 11.5 - 15.0 % | [facility] | | | | | | DEPARTMENT | | | | | | OF | | | | | | PATHOLOGY | | + + + + + + | PLATELET | 322 | 150 - 400 K/cu | [facility] [...] DEPARTMENT OF | [address] | [place] [address] | | | PATHOLOGY | [address] | | | + + + + + GENTAMICIN, TROUGH (01/06/2010 2:00 AM PST) + +-------+ + + + | Component | Value | Ref Range | Performed | Pathologist | | | | | At | Signature | + +-------+ + + + | GENTAMICIN, | 0.7 | <2.0 ug/mL | [facility] | | | TROUGH | | | DEPARTMENT | | | [...] | + + + + + | [facility] DEPARTMENT | [address] | [place] [address] | | | PATHOLOGY | [address] | | | + + + + + 12 LEAD ECG (01/05/2010 6:35 AM PST) + + + + + + | Component | Value | Ref Range | Performed | Pathologist | | | | | At | Signature | + + + + + + | VENTRICULAR | 50 | BPM | [facility] | | | RATE | | | OF | | | | | | CARDIOLOGY | | + + + + + + | ATRIAL RATE | 50 | BPM | [facility] | | | | | | OF | | | | | | CARDIOLOGY | | + + + + + + | P-R | 188 | ms | [facility] | | | INTERVAL | | | OF | | | | | | CARDIOLOGY | | + + + + + + | QRS | 86 | ms | [facility] | | | DURATION | | | OF | | | | | | CARDIOLOGY | | + + + + + + | QT | 472 | ms | [facility] | | | | | | OF | | | | | | CARDIOLOGY | | + + + + + + | QTC | 430 | ms | [facility] | | | | | | OF | | | | | | CARDIOLOGY | | + + + + + + | R AXIS | 16 | degrees | [facility] | | | | | | OF | | | | | | CARDIOLOGY | | + + + + + + | T AXIS | 233 | degrees | [facility] | | | | | | OF | | | | | | CARDIOLOGY | | + + + + + + | EKG | Unusual P axis, possible | | [facility] | | | DIAGNOSIS | ectopic atrial | | OF | | | | bradycardia with | | CARDIOLOGY | | | | Premature atrial | | | | | | complexes with Aberrant | | | | | | conductionT wave | | | | | | abnormality, consider | | | | | | inferolateral | | | | | | ischemiaAbnormal | | | | | | ECGConfirmed by | | | | | | GAURANG OJEDA ([id number]) on | | | | | | 01/06/2010 10:39:21 PM | | | | + + + + + + + + | Specimen | + + | | + + + + + | Narrative | Performed At | + + + | Please click | [facility] | | on view image for the detailed interpretation from Neuro Kinetics results. | CARDIOLOGY | + + + + + + + + | Performing | Address | City/State/Zipcode | Phone Number | | Organization | | | | + + + + + | [facility] | [address] | [place], [place] | | | CARDIOLOGY | [address] | [address] | | + + + + + APTT (ACT. PART. THROMBO TIME) (01/05/2010 4:10 AM PST) + + + + + + | Component | Value | Ref Range | Performed | Pathologist | | | | | At | Signature | + + + + + + | APTT | 61.6 (H)Comment: | 26.0 - 36.0 | [facility] | | | | APTT Therapeutic | seconds | DEPARTMENT | | | | Range | | OF | | | | | | PATHOLOGY | | | | (75-120) sec | | | | | | Heparin | | | | | | levels of 0.35-0.7 U/mL | | | | + + + + + + + + | Specimen | + + | Blood - Blood | + + + + + + + | Performing | Address | City/State/Zipcode | Phone Number | | Organization | | | | + + + + + | [facility] | [address] | [place] [address] | | | PATHOLOGY | [address] | | | + + + + + INR (01/05/2010 4:10 AM PST) + + + + + + | Component | Value | Ref Range | Performed | Pathologist | | | | | At | Signature | + + + + + + | INR | 2.17 (H)Comment: | 0.90 - 1.20 INR | [...] | + + + + + | [facility] DEPARTMENT | [address] | [place] [address] | | | PATHOLOGY | [address] | | | + + + + + BASIC METABOLIC SET (NA, K, CL, TCO2, BUN, CR, GLU, CA) (01/05/2010 4:10 AM PST) + + + + + + | Component | Value | Ref Range | Performed | Pathologist | | | | | At | Signature | + + + + + + | GLUCOSE, | 93 | 60 - 99 mg/dL | [facility] | | | PLASMA | | | DEPARTMENT | | | (LAB) | | | OF | | | | | | PATHOLOGY | | + + + + + + | BUN, PLASMA | 10 | 6 - 20 mg/dL | [facility] | | | (LAB) | | | DEPARTMENT | | | | | | OF | | | | | | PATHOLOGY | | + + + + + + | CREATININE | 1.06 | 0.60 - 1.10 | [facility] | | | PLASMA | | mg/dL | DEPARTMENT | | | (LAB) | | | OF | | | | | | PATHOLOGY | | + + + + + + | SODIUM, | 139 | 134 - 143 | [facility] | | | PLASMA | | mmol/L | DEPARTMENT | | | (LAB) | | | OF | | | | | | PATHOLOGY | | + + + + + + | POTASSIUM, | 4.0 | 3.4 - 5.0 | [facility] | | | PLASMA | | mmol/L | DEPARTMENT | | | (LAB) | | | OF | | | | | | PATHOLOGY | | + + + + + + | CHLORIDE, | 109 (H) | 97 - 108 mmol/L | [facility] | | | PLASMA | | | DEPARTMENT | | | (LAB) | | | OF | | | | | | PATHOLOGY | | + + + + + + | TOTAL CO2, | 24Comment: New Total | 22 - 29 mmol/L | [facility] | | | PLASMA | CO2 reference range | | DEPARTMENT | | | (LAB) | effective 12/31/09. | | OF | | | | | | PATHOLOGY | | + + + + + + | CALCIUM, | 8.7 | 8.6 - 10.2 | [facility] | | | PLASMA | | mg/dL | DEPARTMENT | | | (LAB) | | | OF | | | | | | PATHOLOGY | | + + + + + + | ANION GAP | 6 | 4 - 11 mmol/L [...] [facility] DEPARTMENT | [address] | [place] [address] | | | PATHOLOGY | [address] | | | + + + + + CBC ONLY (01/05/2010 4:10 AM PST) + + + + + + | Component | Value | Ref Range | Performed | Pathologist | | | | | At | Signature | + + + + + + | WHITE CELL | 6.4 | 4.4 - 11.0 K/cu | [facility] | | | COUNT | | mm | DEPARTMENT | | | | | | OF | | | | | | PATHOLOGY | | + + + + + + | RED CELL | 2.90 (L) | 4.00 - 5.20 | [facility] | | | COUNT | | M/cu mm | DEPARTMENT | | | | | | OF | | | | | | PATHOLOGY | | + + + + + + | HEMOGLOBIN | 8.8 (L) | 12.0 - 16.0 | [facility] | | | | | g/dL | DEPARTMENT | | | | | | OF | | | | | | PATHOLOGY | | + + + + + + | HEMATOCRIT | 26.0 (L) | 36.0 - 46.0 % | [facility] | | | | | | DEPARTMENT | | | | | | OF | | | | | | PATHOLOGY | | + + + + + + | MCV | 89.7 | 80.0 - 96.0 fL | [facility] | | | | | | DEPARTMENT | | | | | | OF | | | | | | PATHOLOGY | | + + + + + + | MCHC | 34.0 | 33.4 - 35.5 | [facility] | | | | | g/dL | DEPARTMENT | | | | | | OF | | | | | | PATHOLOGY | | + + + + + + | RDW | 14.8 | 11.5 - 15.0 % | [facility] | | | | | | DEPARTMENT | | | | | | OF | | | | | | PATHOLOGY | | + + + + + + | PLATELET | 322 | 150 - 400 K/cu | [facility] [...] | + + + + + | [facility] DEPARTMENT OF | [address] | [place] [address] | | | PATHOLOGY | [address] | | | + + + + + 12 LEAD ECG (01/04/2010 1:20 PM PST) + + + + + + | Component | Value | Ref Range | Performed | Pathologist | | | | | At | Signature | + + + + + + | VENTRICULAR | 61 | BPM | [facility] | | | RATE | | | OF | | | | | | CARDIOLOGY | | + + + + + + | ATRIAL RATE | 61 | BPM | [facility] | | | | | | OF | | | | | | CARDIOLOGY | | + + + + + + | P-R | 140 | ms | [facility] | | | INTERVAL | | | OF | | | | | | CARDIOLOGY | | + + + + + + | QRS | 84 | ms | [facility] | | | DURATION | | | OF | | | | | | CARDIOLOGY | | + + + + + + | QT | 424 | ms | [facility] | | | | | | OF | | | | | | CARDIOLOGY | | + + + + + + | QTC | 426 | ms | [facility] | | | | | | OF | | | | | | CARDIOLOGY | | + + + + + + | P AXIS | 48 | degrees | [facility] | | | | | | OF | | | | | | CARDIOLOGY | | + + + + + + | R AXIS | 7 | degrees | [facility] | | | | | | OF | | | | | | CARDIOLOGY | | + + + + + + | T AXIS | 244 | degrees | [facility] | | | | | | OF | | | | | | CARDIOLOGY | | + + + + + + | EKG | Sinus rhythm with | | [facility] | | | DIAGNOSIS | Premature | | OF | | | | supraventricular | | CARDIOLOGY | | | | complexesST & T wave | | | | | | abnormality, consider | | | | | | inferior ischemiaST & T | | | | | | wave abnormality, | | | | | | consider anterolateral | | | | | | ischemiaAbnormal | | | | | | ECGConfirmed by | | | | | | GAURANG OJEDA ([id number]) on | | | | | | 01/05/2010 10:30:52 AM | | | | + + + + + + + + | Specimen | + + | | + + + + + | Narrative | Performed At | + + + | Please click | [facility] | | on view image for the detailed interpretation from [employer] results. | CARDIOLOGY | + + + + + + + + | Performing | Address | City/State/Zipcode | Phone Number | | Organization | | | | + + + + + | [facility] | [address] | [place], [place] | | | CARDIOLOGY | [address] | [address] | | + + + + + 12 LEAD ECG (01/04/2010 6:35 AM PST) + + + + + + | Component | Value | Ref Range | Performed | Pathologist | | | | | At | Signature | + + + + + + | VENTRICULAR | 51 | BPM | [facility] | | | RATE | | | OF | | | | | | CARDIOLOGY | | + + + + + + | ATRIAL RATE | 51 | BPM | [facility] | | | | | | OF | | | | | | CARDIOLOGY | | + + + + + + | P-R | 190 | ms | [facility] | | | INTERVAL | | | OF | | | | | | CARDIOLOGY | | + + + + + + | QRS | 86 | ms | [facility] | | | DURATION | | | OF | | | | | | CARDIOLOGY | | + + + + + + | QT | 474 | ms | [facility] | | | | | | OF | | | | | | CARDIOLOGY | | + + + + + + | QTC | 436 | ms | [facility] | | | | | | OF | | | | | | CARDIOLOGY | | + + + + + + | P AXIS | -78 | degrees | [facility] | | | | | | OF | | | | | | CARDIOLOGY | | + + + + + + | R AXIS | 17 | degrees | [facility] | | | | | | OF | | | | | | CARDIOLOGY | | + + + + + + | T AXIS | 246 | degrees | [facility] | | | | | | OF | | | | | | CARDIOLOGY | | + + + + + + | EKG | Unusual P axis, possible | | [facility] | | | DIAGNOSIS | ectopic atrial | | OF | | | | bradycardia with | | CARDIOLOGY | | | | Premature | | | | | | supraventricular | | | | | | complexesCannot rule out | | | | | | Anterior infarct , age | | | | | | undeterminedT wave | | | | | | abnormality, consider | | | | | | inferolateral | | | | | | ischemiaAbnormal ECG"I | | | | | | have personally | | | | | | interpreted this report, | | | | | | either alone or with a | | | | | | trainee."Confirmed by | | | | | | MAHAD ATWOOD ([id number]) on | | | | | | 01/04/2010 7:37:05 PM | | | | + + + + + + + + | Specimen | + + | | + + + + + | Narrative | Performed At | + + + | Please click | [facility] | | on view image for the detailed interpretation from [employer] results. | CARDIOLOGY | + + + + + + + + | Performing | Address | City/State/Zipcode | Phone Number | | Organization | | | | + + + + + | [facility] | [address] | [place] | | | CARDIOLOGY | [facility] | [address] | | + + + + + MAGNESIUM, PLASMA (01/04/2010 4:30 AM PST) + +-------+ + + + | Component | Value | Ref Range | Performed | Pathologist | | | | | At | Signature | + +-------+ + + + | MAGNESIUM,P | 2.4 | 1.8 - 2.5 mg/dL | [facility] | | | [facility] | | | DEPARTMENT | | | | | | OF | | | | | | PATHOLOGY | | + +-------+ + + + + + | Specimen | + + | | + + + + + + + | Performing | Address | City/State/Zipcode | Phone Number | | Organization | | | | + + + + + | [facility] | [address] | [place] [address] | | | PATHOLOGY | [address] | | | + + + + + APTT (ACT. PART. THROMBO TIME) (01/04/2010 4:30 AM PST) + + + + + + | Component | Value | Ref Range | Performed | Pathologist | | | | | At | Signature | + + + + + + | APTT | 61.5 (H)Comment: | 26.0 - 36.0 | [facility] | | | | APTT Therapeutic | seconds | DEPARTMENT | | | | Range | | OF | | | | | | PATHOLOGY | | | | (75-120) sec | | | | | | Heparin | | | | | | levels of 0.35-0.7 U/mL | | | | + + + + + + + + | Specimen | + + | Blood - Blood | + + + + + + + | Performing | Address | City/State/Zipcode | Phone Number | | Organization | | | | + + + + + | [facility] DEPARTMENT OF | [address] | [place] [address] | | | PATHOLOGY | [address] | | | + + + + + INR (01/04/2010 4:30 AM PST) + + + + + + | Component | Value | Ref Range | Performed | Pathologist | | | | | At | Signature | + + + + + + | INR | 2.21 (H)Comment: | 0.90 - 1.20 INR | [...] | + + + + + | [facility] | [address] | [place] [address] | | | PATHOLOGY | [address] | | | + + + + + BASIC METABOLIC SET (NA, K, CL, TCO2, BUN, CR, GLU, CA) (01/04/2010 4:30 AM PST) + + + + + + | Component | Value | Ref Range | Performed | Pathologist | | | | | At | Signature | + + + + + + | GLUCOSE, | 76 | 60 - 99 mg/dL | [facility] | | | PLASMA | | | DEPARTMENT | | | (LAB) | | | OF | | | | | | PATHOLOGY | | + + + + + + | BUN, PLASMA | 7 | 6 - 20 mg/dL | [facility] | | | (LAB) | | | DEPARTMENT | | | | | | OF | | | | | | PATHOLOGY | | + + + + + + | CREATININE | 1.04 | 0.60 - 1.10 | [facility] | | | PLASMA | | mg/dL | DEPARTMENT | | | (LAB) | | | OF | | | | | | PATHOLOGY | | + + + + + + | SODIUM, | 138 | 134 - 143 | [facility] | | | PLASMA | | mmol/L | DEPARTMENT | | | (LAB) | | | OF | | | | | | PATHOLOGY | | + + + + + + | POTASSIUM, | 4.1 | 3.4 - 5.0 | [facility] | | | PLASMA | | mmol/L | DEPARTMENT | | | (LAB) | | | OF | | | | | | PATHOLOGY | | + + + + + + | CHLORIDE, | 110 (H) | 97 - 108 mmol/L | [facility] | | | PLASMA | | | DEPARTMENT | | | (LAB) | | | OF | | | | | | PATHOLOGY | | + + + + + + | TOTAL CO2, | 24Comment: New Total | 22 - 29 mmol/L | [facility] | | | PLASMA | CO2 reference range | | DEPARTMENT | | | (LAB) | effective 12/31/09. | | OF | | | | | | PATHOLOGY | | + + + + + + | CALCIUM, | 8.5 (L) | 8.6 - 10.2 | [facility] | | | PLASMA | | mg/dL | DEPARTMENT | | | (LAB) | | | OF | | | | | | PATHOLOGY | | + + + + + + | ANION GAP | 4 | 4 - 11 mmol/L | [facility] [...] DEPARTMENT OF | [address] | [place] [address] | | | PATHOLOGY | [address] | | | + + + + + CBC ONLY (01/04/2010 4:30 AM PST) + + + + + + | Component | Value | Ref Range | Performed | Pathologist | | | | | At | Signature | + + + + + + | WHITE CELL | 6.7 | 4.4 - 11.0 K/cu | [facility] | | | COUNT | | mm | DEPARTMENT | | | | | | OF | | | | | | PATHOLOGY | | + + + + + + | RED CELL | 2.78 (L) | 4.00 - 5.20 | [facility] | | | COUNT | | M/cu mm | DEPARTMENT | | | | | | OF | | | | | | PATHOLOGY | | + + + + + + | HEMOGLOBIN | 8.4 (L) | 12.0 - 16.0 | [facility] | | | | | g/dL | DEPARTMENT | | | | | | OF | | | | | | PATHOLOGY | | + + + + + + | HEMATOCRIT | 25.0 (L) | 36.0 - 46.0 % | [facility] | | | | | | DEPARTMENT | | | | | | OF | | | | | | PATHOLOGY | | + + + + + + | MCV | 90.0 | 80.0 - 96.0 fL | [facility] | | | | | | DEPARTMENT | | | | | | OF | | | | | | PATHOLOGY | | + + + + + + | MCHC | 33.7 | 33.4 - 35.5 | [facility] | | | | | g/dL | DEPARTMENT | | | | | | OF | | | | | | PATHOLOGY | | + + + + + + | RDW | 14.6 | 11.5 - 15.0 % | [facility] | | | | | | DEPARTMENT | | | | | | OF | | | | | | PATHOLOGY | | + + + + + + | PLATELET | 316 | 150 - 400 K/cu | [facility] [...] | + + + + + | [facility] DEPARTMENT OF | [address] | [place] [address] | | | PATHOLOGY | [address] | | | + + + + + C. DIFFICILE TOXIN (01/03/2010 7:26 PM PST) + + + + + + | Component | Value | Ref Range | Performed | Pathologist | | | | | At | Signature | + + + + + + | C. | Specimen unsatisfactory, | | [facility] | | | DIFFICILE | formed stools not | | DEPARTMENT | | | TOXIN | tested. | | OF | | | | | | PATHOLOGY | | + + + + + + + + | Specimen | + + | Stool - Stool | + + + + + | Narrative | Performed At | + + + | Phoned Readback. TO GRACE LITTLE IN 11K @1999 | [facility] | | | DEPARTMENT OF | | | PATHOLOGY | + + + + + + + + | Performing | Address | City/State/Zipcode | Phone Number | | Organization | | | | + + + + + | [facility] DEPARTMENT OF | [address] | [place] [address] | | | PATHOLOGY | [address] | | | + + + + + GENTAMICIN, TROUGH (01/03/2010 9:12 AM PST) + +---------+ + + + | Component | Value | Ref Range | Performed | Pathologist | | | | | At | Signature | + +---------+ + + + | GENTAMICIN, | 3.8 (H) | <2.0 ug/mL | [facility] | | | TROUGH | | | DEPARTMENT | | | | | | OF | | | | | | PATHOLOGY | | + +---------+ + + + + + | Specimen | + + | Blood - Blood | + + + + + + + | Performing | Address | City/State/Zipcode | Phone Number | | Organization | | | | + + + + + | [facility] DEPARTMENT OF | [address] | [place] [address] | | | PATHOLOGY | [address] | | | + + + + + APTT (ACT. PART. THROMBO TIME) (01/03/2010 5:05 AM PST) + + + + + + | Component | Value | Ref Range | Performed | Pathologist | | | | | At | Signature | + + + + + + | APTT | 56.7 (H)Comment: | 26.0 - 36.0 | [facility] | | | | APTT Therapeutic | seconds | DEPARTMENT | | | | Range | | OF | | | | | | PATHOLOGY | | | | (75-120) sec | | | | | | Heparin | | | | | | levels of 0.35-0.7 U/mL | | | | + + + + + + + + | Specimen | + + | Blood - Blood | + + + + + + + | Performing | Address | City/State/Zipcode | Phone Number | | Organization | | | | + + + + + | [facility] | [address] | [place] [address] | | | PATHOLOGY | [address] | | | + + + + + INR (01/03/2010 5:05 AM PST) + + + + + + | Component | Value | Ref Range | Performed | Pathologist | | | | | At | Signature | + + + + + + | INR | 2.04 (H)Comment: | 0.90 - 1.20 INR | [...] | + + + + + | [facility] DEPARTMENT | [address] | [place] [address] | | | PATHOLOGY | [address] | | | + + + + + BASIC METABOLIC SET (NA, K, CL, TCO2, BUN, CR, GLU, CA) (01/03/2010 5:05 AM PST) + + + + + + | Component | Value | Ref Range | Performed | Pathologist | | | | | At | Signature | + + + + + + | GLUCOSE, | 88 | 60 - 99 mg/dL | [facility] | | | PLASMA | | | DEPARTMENT | | | (LAB) | | | OF | | | | | | PATHOLOGY | | + + + + + + | BUN, PLASMA | 8 | 6 - 20 mg/dL | [facility] | | | (LAB) | | | DEPARTMENT | | | | | | OF | | | | | | PATHOLOGY | | + + + + + + | CREATININE | 1.08 | 0.60 - 1.10 | [facility] | | | PLASMA | | mg/dL | DEPARTMENT | | | (LAB) | | | OF | | | | | | PATHOLOGY | | + + + + + + | SODIUM, | 139 | 134 - 143 | [facility] | | | PLASMA | | mmol/L | DEPARTMENT | | | (LAB) | | | OF | | | | | | PATHOLOGY | | + + + + + + | POTASSIUM, | 3.9 | 3.4 - 5.0 | [facility] | | | PLASMA | | mmol/L | DEPARTMENT | | | (LAB) | | | OF | | | | | | PATHOLOGY | | + + + + + + | CHLORIDE, | 109 (H) | 97 - 108 mmol/L | [facility] | | | PLASMA | | | DEPARTMENT | | | (LAB) | | | OF | | | | | | PATHOLOGY | | + + + + + + | TOTAL CO2, | 24Comment: New Total | 22 - 29 mmol/L | [facility] | | | PLASMA | CO2 reference range | | DEPARTMENT | | | (LAB) | effective 12/31/09. | | OF | | | | | | PATHOLOGY | | + + + + + + | CALCIUM, | 8.8 | 8.6 - 10.2 | [facility] | | | PLASMA | | mg/dL | DEPARTMENT | | | (LAB) | | | OF | | | | | | PATHOLOGY | | + + + + + + | ANION GAP | 6 | 4 - 11 mmol/L [...] DEPARTMENT OF | [address] | [place] [address] | | | PATHOLOGY | [address] | | | + + + + + CBC ONLY (01/03/2010 5:05 AM PST) + + + + + + | Component | Value | Ref Range | Performed | Pathologist | | | | | At | Signature | + + + + + + | WHITE CELL | 6.2 | 4.4 - 11.0 K/cu | [facility] | | | COUNT | | mm | DEPARTMENT | | | | | | OF | | | | | | PATHOLOGY | | + + + + + + | RED CELL | 2.94 (L) | 4.00 - 5.20 | [facility] | | | COUNT | | M/cu mm | DEPARTMENT | | | | | | OF | | | | | | PATHOLOGY | | + + + + + + | HEMOGLOBIN | 8.8 (L) | 12.0 - 16.0 | [facility] | | | | | g/dL | DEPARTMENT | | | | | | OF | | | | | | PATHOLOGY | | + + + + + + | HEMATOCRIT | 26.2 (L) | 36.0 - 46.0 % | [facility] | | | | | | DEPARTMENT | | | | | | OF | | | | | | PATHOLOGY | | + + + + + + | MCV | 89.2 | 80.0 - 96.0 fL | [facility] | | | | | | DEPARTMENT | | | | | | OF | | | | | | PATHOLOGY | | + + + + + + | MCHC | 33.4 | 33.4 - 35.5 | [facility] | | | | | g/dL | DEPARTMENT | | | | | | OF | | | | | | PATHOLOGY | | + + + + + + | RDW | 14.5 | 11.5 - 15.0 % | [facility] | | | | | | DEPARTMENT | | | | | | OF | | | | | | PATHOLOGY | | + + + + + + | PLATELET | 303 | 150 - 400 K/cu | [facility] [...] DEPARTMENT OF | [address] | [place] [address] | | | PATHOLOGY | [address] | | | + + + + + C-REACT PRTN (FOR INFLAMMATION) (01/03/2010 5:05 AM PST) + +---------+ + + + | Component | Value | Ref Range | Performed | Pathologist | | | | | At | Signature | + +---------+ + + + | C-REACTIVE | 3.5 (H) | <0.6 mg/dl | [facility] | | | [facility] | | | [facility] | | | | | | LABORATORY | | + +---------+ + + + + + | Specimen | + + | Blood - Blood | + + + + + | Narrative | Performed At | + + + | Reference Range Change effective 03/06/08 | [facility] | | [facility] REGIONAL | | [place] [address] | LABORATORY | | [place] [address] | | + + + + + + + + | Performing | Address | City/State/Zipcode | Phone Number | | Organization | | | | + + + + + | [facility] | [address] | [place] [address] | | | LABORATORY | | | | + + + + + SEDIMENTATION RATE (01/03/2010 5:05 AM PST) + +---------+ + + + | Component | Value | Ref Range | Performed | Pathologist | | | | | At | Signature | + +---------+ + + + | SEDIMENTATI | 107 (H) | <31 mm/hr | [facility] | | | ON RATE | | | DEPARTMENT | | | | | | OF | | | | | | PATHOLOGY | | + +---------+ + + + + + | Specimen | + + | Blood - Blood | + + + + + + + | Performing | Address | City/State/Zipcode | Phone Number | | Organization | | | | + + + + + | [facility] DEPARTMENT | [address] | [place] [address] | | | PATHOLOGY | [address] | | | + + + + + 12 LEAD ECG (01/03/2010 4:56 AM PST) + + + + + + | Component | Value | Ref Range | Performed | Pathologist | | | | | At | Signature | + + + + + + | VENTRICULAR | 67 | BPM | [facility] | | | RATE | | | OF | | | | | | CARDIOLOGY | | + + + + + + | ATRIAL RATE | 67 | BPM | [facility] | | | | | | OF | | | | | | CARDIOLOGY | | + + + + + + | P-R | 184 | ms | [facility] | | | INTERVAL | | | OF | | | | | | CARDIOLOGY | | + + + + + + | QRS | 84 | ms | [facility] | | | DURATION | | | OF | | | | | | CARDIOLOGY | | + + + + + + | QT | 464 | ms | [facility] | | | | | | OF | | | | | | CARDIOLOGY | | + + + + + + | QTC | 490 | ms | [facility] | | | | | | OF | | | | | | CARDIOLOGY | | + + + + + + | R AXIS | 6 | degrees | [facility] | | | | | | OF | | | | | | CARDIOLOGY | | + + + + + + | T AXIS | 257 | degrees | [facility] | | | | | | OF | | | | | | CARDIOLOGY | | + + + + + + | EKG | Sinus rhythm with | | [facility] | | [...] | | | | | | consider inferior | | | | | | ischemiaST & T wave | | | | | | abnormality, consider | | | | | | anterolateral | | | | | | ischemiaProlonged [...] on | | | | | | 01/03/2010 9:43:05 AM | | | | + + + + + + + + | Specimen | + + | | + + + + + | Narrative | Performed At | + + + | Please click | [facility] OF | | on view image for the detailed interpretation from Neuro Kinetics results. | CARDIOLOGY | + + + + + + + + | Performing | Address | City/State/Zipcode | Phone Number | | Organization | | | | + + + + + | [facility] DEPT OF | [address] | [place], [place] | | | CARDIOLOGY | [address] | [address] | | + + + + + APTT (ACT. PART. THROMBO TIME) (01/02/2010 9:57 PM PST) + + + + + + | Component | Value | Ref Range | Performed | Pathologist | | | | | At | Signature | + + + + + + | APTT | 66.1 (H)Comment: | 26.0 - 36.0 | [facility] | | | | APTT Therapeutic | seconds | DEPARTMENT | | | | Range | | OF | | | | | | PATHOLOGY | | | | (75-120) sec | | | | | | Heparin | | | | | | levels of 0.35-0.7 U/mL | | | | + + + + + + + + | Specimen | + + | Blood - Blood | + + + + + + + | Performing | Address | City/State/Zipcode | Phone Number | | Organization | | | | + + + + + | [facility] | [address] | [place] [address] | | | PATHOLOGY | [address] | | | + + + + + APTT (ACT. PART. THROMBO TIME) (01/02/2010 9:01 PM PST) + + + + + + | Component | Value | Ref Range | Performed | Pathologist | | | | | At | Signature | + + + + + + | APTT | See cmnt | 26.0 - 36.0 | [facility] | | | | | seconds | DEPARTMENT | | | | | | OF | | | | | | PATHOLOGY | | + + + + + + + + | Specimen | + + | Blood - Blood | + + + + + | Narrative | Performed At | + + + | Specimen collected in wrong type of tube.Notif. Lorena aMck @ 11K of | [facility] | | lab cancel. | DEPARTMENT OF | | | PATHOLOGY | + + + + + + + + | Performing | Address | City/State/Zipcode | Phone Number | | Organization | | | | + + + + + | [facility] | [address] | [place] [address] | | | PATHOLOGY | [address] | | | + + + + + APTT (ACT. PART. THROMBO TIME) (01/02/2010 1:16 PM PST) + + + + + + | Component | Value | Ref Range | Performed | Pathologist | | | | | At | Signature | + + + + + + | APTT | 75.4 (H)Comment: | 26.0 - 36.0 | [facility] | | | | APTT Therapeutic | seconds | DEPARTMENT | | | | Range | | OF | | | | | | PATHOLOGY | | | | (75-120) sec | | | | | | Heparin | | | | | | levels of 0.35-0.7 U/mL | | | | + + + + + + + + | Specimen | + + | Blood - Blood | + + + + + + + | Performing | Address | City/State/Zipcode | Phone Number | | Organization | | | | + + + + + | [facility] DEPARTMENT OF | [address] | [place] [address] | | | PATHOLOGY | [address] | | | + + + + + GENTAMICIN, PEAK (01/02/2010 6:51 AM PST) + +-------+ + + + | Component | Value | Ref Range | Performed | Pathologist | | | | | At | Signature | + +-------+ + + + | GENTAMICIN, | 6.7 | 5.0 - 8.0 ug/mL | [facility] | | | PEAK | | | DEPARTMENT | | | [...] | + + + + + | [facility] DEPARTMENT | [address] | [place] [address] | | | PATHOLOGY | [address] | | | + + + + + 12 LEAD ECG (01/02/2010 5:57 AM PST) + + + + + + | Component | Value | Ref Range | Performed | Pathologist | | | | | At | Signature | + + + + + + | VENTRICULAR | 50 | BPM | [facility] [...] + + + + | P-R | 186 | ms | [facility] | | | INTERVAL | | | OF | | | | | | CARDIOLOGY | | + + + + + + | QRS | 90 | ms | [facility] | | | DURATION | | | OF | | | | | | CARDIOLOGY | | + + + + + + | QT | 454 | ms | [facility] | | | | | | OF | | | | | | CARDIOLOGY | | + + + + + + | QTC | 413 | ms | [facility] | | | | | | OF | | | | | | CARDIOLOGY | | + + + + + + | R AXIS | 12 | degrees | [facility] | | | | | | OF | | | | | | CARDIOLOGY | | + + + + + + | T AXIS | 241 | degrees | [facility] | | | | | | OF | | | | | | CARDIOLOGY | | + + + + + + | EKG | Sinus bradycardiaCannot | | [facility] | | | DIAGNOSIS | rule out Anterior | | OF | | | | infarct , age | | CARDIOLOGY | | | | undeterminedST & T wave | | | | | | abnormality, consider | | | | | | inferolateral | | | | | | ischemiaAbnormal ECG"I | | | | | | have personally | | | | | | interpreted this report, | | | | | | either alone or with a | | | | | | trainee."Confirmed by | | | | | | MANOHAR PALM ([id number]) on | | | | | | 01/03/2010 9:30:44 AM | | | | + + + + + + + + | Specimen | + + | | + + + + + | Narrative | Performed At | + + + | Please click | [facility] OF | | on view image for the detailed interpretation from Neuro Kinetics results. | CARDIOLOGY | + + + + + + + + | Performing | Address | City/State/Zipcode | Phone Number | | Organization | | | | + + + + + | [facility] DEPT OF | [address] | [place], [place] | | | CARDIOLOGY | [address] | [address] | | + + + + + 12 LEAD ECG (01/02/2010 5:56 AM PST) + + + + + + | Component | Value | Ref Range | Performed | Pathologist | | | | | At | Signature | + + + + + + | VENTRICULAR | 51 | BPM | [facility] | | | RATE | | | OF | | | | | | CARDIOLOGY | | + + + + + + | ATRIAL RATE | 51 | BPM | [facility] | | | | | | OF | | | | | | CARDIOLOGY | | + + + + + + | P-R | 194 | ms | [facility] | | | INTERVAL | | | OF | | | | | | CARDIOLOGY | | + + + + + + | QRS | 90 | ms | [facility] | | | DURATION | | | OF | | | | | | CARDIOLOGY | | + + + + + + | QT | 478 | ms | [facility] | | | | | | OF | | | | | | CARDIOLOGY | | + + + + + + | QTC | 440 | ms | [facility] | | | | | | OF | | | | | | CARDIOLOGY | | + + + + + + | R AXIS | 13 | degrees | [facility] | | | | | | OF | | | | | | CARDIOLOGY | | + + + + + + | T AXIS | 187 | degrees | [facility] | | | | | | OF | | | | | | CARDIOLOGY | | + + + + + + | EKG | Poor data quality, | | [facility] | | | DIAGNOSIS | interpretation may be | | OF | | | | adversely affectedSinus | | CARDIOLOGY | | | | bradycardia with | | | | | | Premature | | | | | | supraventricular | | | | | | complexesST & T wave | | | | | | abnormality, consider | | | | | | inferior ischemiaST & T | | | | | | wave abnormality, | | | | | | consider anterolateral | | | | | | ischemiaAbnormal ECG"I | | | | | | have personally | | | | | | interpreted this report, | | | | | | either alone or with a | | | | | | trainee."Confirmed by | | | | | | MANOHAR PALM ([id number]) on | | | | | | 01/03/2010 9:30:11 AM | | | | + + + + + + + + | Specimen | + + | | + + + + + | Narrative | Performed At | + + + | Please click | [facility] | | on view image for the detailed interpretation from Neuro Kinetics results. | CARDIOLOGY | + + + + + + + + | Performing | Address | City/State/Zipcode | Phone Number | | Organization | | | | + + + + + | [facility] | [address] | [place], [place] | | | CARDIOLOGY | [address] | [address] | | + + + + + GENTAMICIN, TROUGH (01/02/2010 5:32 AM PST) + +---------+ + + + | Component | Value | Ref Range | Performed | Pathologist | | | | | At | Signature | + +---------+ + + + | GENTAMICIN, | 2.5 (H) | <2.0 ug/mL | [facility] | | | TROUGH | | | DEPARTMENT | | | | | | OF | | | | | | PATHOLOGY | | + +---------+ + + + + + | Specimen | + + | Blood - Blood | + + + + + + + | Performing | Address | City/State/Zipcode | Phone Number | | Organization | | | | + + + + + | [facility] | [address] | [place] [address] | | | PATHOLOGY | [address] | | | + + + + + TROPONIN I, PLASMA (01/02/2010 3:53 AM PST) + +-------+ + + + | Component | Value | Ref Range | Performed | Pathologist | | | | | At | Signature | + +-------+ + + + | TROPONIN I | 0.25 | <0.50 ng/mL | [facility] | | | | | [...] | + + + + + | [facility] DEPARTMENT OF | [address] | [place] [address] | | | PATHOLOGY | [address] | | | + + + + + APTT (ACT. PART. THROMBO TIME) (01/02/2010 3:53 AM PST) + + + + + + | Component | Value | Ref Range | Performed | Pathologist | | | | | At | Signature | + + + + + + | APTT | 76.2 (H)Comment: | 26.0 - 36.0 | [facility] | | | | APTT Therapeutic | seconds | DEPARTMENT | | | | Range | | OF | | | | | | PATHOLOGY | | | | (75-120) sec | | | | | | Heparin | | | | | | levels of 0.35-0.7 U/mL | | | | + + + + + + + + | Specimen | + + | Blood - Blood | + + + + + + + | Performing | Address | City/State/Zipcode | Phone Number | | Organization | | | | + + + + + | [facility] | [address] | [place] [address] | | | PATHOLOGY | [address] | | | + + + + + INR (01/02/2010 3:53 AM PST) + + + + + + | Component | Value | Ref Range | Performed | Pathologist | | | | | At | Signature | + + + + + + | INR | 1.88 (H)Comment: | 0.90 - 1.20 INR | [facility] | | | | INR [...] | + + + + + | [facility] DEPARTMENT OF | [address] | [place] [address] | | | PATHOLOGY | [address] | | | + + + + + BASIC METABOLIC SET (NA, K, CL, TCO2, BUN, CR, GLU, CA) (01/02/2010 3:53 AM PST) + + + + + + | Component | Value | Ref Range | Performed | Pathologist | | | | | At | Signature | + + + + + + | GLUCOSE, | 85 | 60 - 99 mg/dL | [facility] | | | PLASMA | | | DEPARTMENT | | | (LAB) | | | OF | | | | | | PATHOLOGY | | + + + + + + | BUN, PLASMA | 7 | 6 - 20 mg/dL | [facility] | | | (LAB) | | | DEPARTMENT | | | | | | OF | | | | | | PATHOLOGY | | + + + + + + | CREATININE | 0.89 | 0.60 - 1.10 | [facility] | | | PLASMA | | mg/dL | DEPARTMENT | | | (LAB) | | | OF | | | | | | PATHOLOGY | | + + + + + + | SODIUM, | 141 | 134 - 143 | [facility] | | | PLASMA | | mmol/L | DEPARTMENT | | | (LAB) | | | OF | | | | | | PATHOLOGY | | + + + + + + | POTASSIUM, | 4.2 | 3.4 - 5.0 | [facility] | | | PLASMA | | mmol/L | DEPARTMENT | | | (LAB) | | | OF | | | | | | PATHOLOGY | | + + + + + + | CHLORIDE, | 110 (H) | 97 - 108 mmol/L | [facility] | | | PLASMA | | | DEPARTMENT | | | (LAB) | | | OF | | | | | | PATHOLOGY | | + + + + + + | TOTAL CO2, | 25Comment: New Total | 22 - 29 mmol/L | [facility] | | | PLASMA | CO2 reference range | | DEPARTMENT | | | (LAB) | effective 12/31/09. | | OF | | | | | | PATHOLOGY | | + + + + + + | CALCIUM, | 8.5 (L) | 8.6 - 10.2 | [facility] | | | PLASMA | | mg/dL | DEPARTMENT | | | (LAB) | | | OF | | | | | | PATHOLOGY | | + + + + + + | ANION GAP | 6 | 4 - 11 mmol/L [...] | + + + + + | [facility] | [address] | [place] [address] | | | PATHOLOGY | [address] | | | + + + + + CBC ONLY (01/02/2010 3:53 AM PST) + + + + + + | Component | Value | Ref Range | Performed | Pathologist | | | | | At | Signature | + + + + + + | WHITE CELL | 6.3 | 4.4 - 11.0 K/cu | [facility] | | | COUNT | | mm | DEPARTMENT | | | | | | OF | | | | | | PATHOLOGY | | + + + + + + | RED CELL | 2.71 (L) | 4.00 - 5.20 | [facility] | | | COUNT | | M/cu mm | DEPARTMENT | | | | | | OF | | | | | | PATHOLOGY | | + + + + + + | HEMOGLOBIN | 8.2 (L) | 12.0 - 16.0 | [facility] | | | | | g/dL | DEPARTMENT | | | | | | OF | | | | | | PATHOLOGY | | + + + + + + | HEMATOCRIT | 24.2 (L) | 36.0 - 46.0 % | [facility] | | | | | | DEPARTMENT | | | | | | OF | | | | | | PATHOLOGY | | + + + + + + | MCV | 89.4 | 80.0 - 96.0 fL | [facility] | | | | | | DEPARTMENT | | | | | | OF | | | | | | PATHOLOGY | | + + + + + + | MCHC | 33.7 | 33.4 - 35.5 | [facility] | | | | | g/dL | DEPARTMENT | | | | | | OF | | | | | | PATHOLOGY | | + + + + + + | RDW | 14.1 | 11.5 - 15.0 % | [facility] | | | | | | DEPARTMENT | | | | | | OF | | | | | | PATHOLOGY | | + + + + + + | PLATELET | 292 | 150 - 400 K/cu | [facility] [...] | + + + + + | [facility] | [address] | [place] [address] | | | PATHOLOGY | [address] | | | + + + + + GENTAMICIN, RANDOM (01/02/2010 3:53 AM PST) + +-------+ + + + | Component | Value | Ref Range | Performed | Pathologist | | | | | At | Signature | + +-------+ + + + | GENTAMICIN, | 2.9 | 0.5 - 8.0 ug/mL | [facility] | | | RANDOM | | | DEPARTMENT | | | [...] DEPARTMENT OF | [address] | [place] [address] | | | PATHOLOGY | [address] | | | + + + + + CULTURE, TISSUE (01/01/2010 12:00 PM PST) + + + + + + | Component | Value | Ref Range | Performed | Pathologist | | | | | At | Signature | + + + + + + | SOURCE BODY | Chest Surgical | | [facility] | | | SITE | | | [facility] | | | | | | LAB-MICRO | | + + + + + + | CULTURE | Tissue Culture | | [facility] | | | RESULT | | | [facility] | | | | Source...............: | | LAB-MICRO | | | | Chest Surgical [facility] | | | | | | Gram Stain...........: | | | | | | No Squamous epithelial | | | | | | cells | | | | | | | | | | | | No PMN's | | | | | | | | | | | | No organisms seen. | | | | | | Culture: | | | | | | Final Report: No | | | | | | growth No | | | | | | anaerobes isolated | | | | | | Final Report | | | | | | Resulted: 01/06/10 | | | | | | [facility] | | | | | | Way Lab) | | | | | | [facility] | | | | | | [address] | | | | [address] | | | | | | [place] [address] | | | | + + + + + + + + | Specimen | + + | | + + + + + + + | Performing | Address | City/State/Zipcode | Phone Number | | Organization | | | | + + + + + | [facility] | [address] | [place] [address] | | | LAB-MICRO | | | | + + + + + CULTURE, TISSUE (01/01/2010 11:53 AM PST) + + + + + + | Component | Value | Ref Range | Performed | Pathologist | | | | | At | Signature | + + + + + + | SOURCE BODY | Chest Tissue | | [facility] | | | SITE | | | [facility] | | | | | | LAB-MICRO | | + + + + + + | CULTURE | Yashira order. | | [facility] | | | RESULT | | | [facility] | | | | | | LAB-MICRO | | + + + + + + + + | Specimen | + + | Tissue - Chest | + + + + + + + | Performing | Address | City/State/Zipcode | Phone Number | | Organization | | | | + + + + + | [facility] | [address] | [place] [address] | | | LAB-MICRO | | | | + + + + + X-RAY PORTABLE CHEST 1 VIEW (01/01/2010 9:20 AM PST) + + + + + + | Component | Value | Ref Range | Performed | Pathologist | | | | | At | Signature | + + + + + + | X-RAY | STUDY: NE CHEST 1 VIEW | | | | | PORTABLE | 01/01/10 09:20:00 | | | | | CHEST 1 | HISTORY:PICC placement | | | | | VIEW | COMPARISON: 12/27/09. | | | | | | FINDINGS: Right upper | | | | | | extremity PICC has been | | | | | | placed with the tip | | | | | | projectingover the lower | | | | | | superior vena cava. | | | | | | Median sternotomy | | | | | | wires are againnoted | | | | | | with the most superior | | | | | | wire broken. The | | | | | | cardiac andmediastinal | | | | | | contours are normal. | | | | | | There is mild central | | | | | | airwaythickening without | | | | | | focal consolidation. | | | | | | Slightly improved left | | | | | | lowerlobe atelectasis. | | | | | | There is no pulmonary | | | | | | edema. The | | | | | | costophrenicangles are | | | | | | sharp. There is no | | | | | | pneumothorax. The | | | | | | osseous structuresare | | | | | | unremarkable. An | | | | | | electronic device in | | | | | | again seen in the | | | | | | leftanterior chest wall. | | | | | | IMPRESSION: 1. | | | | | | Interval right upper | | | | | | extremity PICC placement | | | | | | with tip projectingover | | | | | | the lower superior vena | | | | | | cava. 2. Slightly | | | | | | improved left lower lobe | | | | | | atelectasis. 3. Mild | | | | | | central airway | | | | | | thickening most likely | | | | | | represents a bronchitis | | | | | | I have personally viewed | | | | | | this procedure/exam and | | | | | | reviewed this report. | | | | | | Author: MAXIME | | | | | | IMERReviewer: RODNEY | | | | | | Supriya CASTELLON M.D. | | | | | | STATUS FINAL / Dr. STEVENS | | | | | | Supriya CASTELLON | | | | + + + + + + + + | Specimen | + + | | + + + +---------+ + + | Performing | Address | City/State/Zipcode | Phone Number | | Organization | | | | + +---------+ + + | [facility] | | | | | RADIOLOGY | | | | + +---------+ + + 12 LEAD ECG (01/01/2010 6:13 AM PST) + + + + + + | Component | Value | Ref Range | Performed | Pathologist | | | | | At | Signature | + + + + + + | VENTRICULAR | 47 | BPM | [facility] | | | RATE | | | OF | | | | | | CARDIOLOGY | | + + + + + + | ATRIAL RATE | 47 | BPM | [facility] | | | | | | OF | | | | | | CARDIOLOGY | | + + + + + + | P-R | 190 | ms | [facility] | | | INTERVAL | | | OF | | | | | | CARDIOLOGY | | + + + + + + | QRS | 92 | ms | [facility] | | | DURATION | | | OF | | | | | | CARDIOLOGY | | + + + + + + | QT | 488 | ms | [facility] | | | | | | OF | | | | | | CARDIOLOGY | | + + + + + + | QTC | 431 | ms | [facility] | | | | | | OF | | | | | | CARDIOLOGY | | + + + + + + | R AXIS | 21 | degrees | [facility] | | | | | | OF | | | | | | CARDIOLOGY | | + + + + + + | T AXIS | 253 | degrees | [facility] | | | | | | OF | | | | | | CARDIOLOGY | | + + + + + + | EKG | Marked sinus bradycardia | | [facility] | | | DIAGNOSIS | with occasional | | OF | | | | Premature ventricular | | CARDIOLOGY | | | | complexesT wave | | | | | | abnormality, consider | | | | | | inferior ischemiaT wave | | | | | | [...] on | | | | | | 01/03/2010 9:16:02 AM | | | | + + + + + + + + | Specimen | + + | | + + + + + | Narrative | Performed At | + + + | Please click | [facility] | | on view image for the detailed interpretation from Neuro Kinetics results. | CARDIOLOGY | + + + + + + + + | Performing | Address | City/State/Zipcode | Phone Number | | Organization | | | | + + + + + | [facility] | [address] | [place], [place] | | | CARDIOLOGY | [address] | [address] | | + + + + + APTT (ACT. PART. THROMBO TIME) (01/01/2010 5:34 AM PST) + + + + + + | Component | Value | Ref Range | Performed | Pathologist | | | | | At | Signature | + + + + + + | APTT | 65.1 (H)Comment: | 26.0 - 36.0 | [facility] | | | | APTT Therapeutic | seconds | DEPARTMENT | | | | Range | | OF | | | | | | PATHOLOGY | | | | (75-120) sec | | | | | | Heparin | | | | | | levels of 0.35-0.7 U/mL | | | | + + + + + + + + | Specimen | + + | Blood - Blood | + + + + + + + | Performing | Address | City/State/Zipcode | Phone Number | | Organization | | | | + + + + + | [facility] DEPARTMENT OF | [address] | [place] [address] | | | PATHOLOGY | [address] | | | + + + + + CULTURE, BLOOD BACTI & YEAST (01/01/2010 5:34 AM PST) + + + + + + | Component | Value | Ref Range | Performed | Pathologist | | | | | At | Signature | + + + + + + | SOURCE BODY | Right Antecubital | | [facility] | | | SITE | | | [facility] | | | | | | LAB-MICRO | | + + + + + + | CULTURE | Blood Culture | | [facility] | | | RESULT | | | [facility] | | | | Source.................. | | LAB-MICRO | | | | : Right Antecubital | | | | | | | | | | | | Result.................. | | | | | | . Final: No growth at 5 | | | | | | days. | | | | + + + + + + + + | Specimen | + + | Blood | + + + + + + + | Performing | Address | City/State/Zipcode | Phone Number | | Organization | | | | + + + + + | [facility] | [address] | [place] [address] | | | LAB-MICRO | | | | + + + + + INR (01/01/2010 5:34 AM PST) + + + + + + | Component | Value | Ref Range | Performed | Pathologist | | | | | At | Signature | + + + + + + | INR | 1.69 (H)Comment: | 0.90 - 1.20 INR | [...] | + + + + + | [facility] DEPARTMENT | [address] | [place] [address] | | | PATHOLOGY | [address] | | | + + + + + BASIC METABOLIC SET (NA, K, CL, TCO2, BUN, CR, GLU, CA) (01/01/2010 5:34 AM PST) + + + + + + | Component | Value | Ref Range | Performed | Pathologist | | | | | At | Signature | + + + + + + | GLUCOSE, | 81 | 60 - 99 mg/dL | [facility] | | | PLASMA | | | DEPARTMENT | | | (LAB) | | | OF | | | | | | PATHOLOGY | | + + + + + + | CREATININE | 0.94 | 0.60 - 1.10 | [facility] | | | PLASMA | | mg/dL | DEPARTMENT | | | (LAB) | | | OF | | | | | | PATHOLOGY | | + + + + + + | SODIUM, | 140 | 134 - 143 | [facility] | | | PLASMA | | mmol/L | DEPARTMENT | | | (LAB) | | | OF | | | | | | PATHOLOGY | | + + + + + + | POTASSIUM, | 3.7 | 3.4 - 5.0 | [facility] | | | PLASMA | | mmol/L | DEPARTMENT | | | (LAB) | | | OF | | | | | | PATHOLOGY | | + + + + + + | CHLORIDE, | 109 (H) | 97 - 108 mmol/L | [facility] | | | PLASMA | | | DEPARTMENT | | | (LAB) | | | OF | | | | | | PATHOLOGY | | + + + + + + | TOTAL CO2, | 26Comment: New Total | 22 - 29 mmol/L | [facility] | | | PLASMA | CO2 reference range | | DEPARTMENT | | | (LAB) | effective 12/31/09. | | OF | | | | | | PATHOLOGY | | + + + + + + | CALCIUM, | 8.4 (L) | 8.6 - 10.2 | [facility] | | | PLASMA | | mg/dL | DEPARTMENT | | | (LAB) | | | OF | | | | | | PATHOLOGY | | + + + + + + | ANION GAP | 5 | 4 - 11 mmol/L | [facility] | | | | | | DEPARTMENT | | | | | | OF | | | | | | PATHOLOGY | | + + + + + + | BUN, PLASMA | 7 | 6 - 20 mg/dL | [facility] [...] | + + + + + | [facility] DEPARTMENT OF | [address] | [place] [address] | | | PATHOLOGY | [address] | | | + + + + + CBC ONLY (01/01/2010 5:34 AM PST) + + + + + + | Component | Value | Ref Range | Performed | Pathologist | | | | | At | Signature | + + + + + + | WHITE CELL | 6.6 | 4.4 - 11.0 K/cu | [facility] | | | COUNT | | mm | DEPARTMENT | | | | | | OF | | | | | | PATHOLOGY | | + + + + + + | RED CELL | 2.86 (L) | 4.00 - 5.20 | [facility] | | | COUNT | | M/cu mm | DEPARTMENT | | | | | | OF | | | | | | PATHOLOGY | | + + + + + + | HEMOGLOBIN | 8.7 (L) | 12.0 - 16.0 | [facility] | | | | | g/dL | DEPARTMENT | | | | | | OF | | | | | | PATHOLOGY | | + + + + + + | HEMATOCRIT | 25.5 (L) | 36.0 - 46.0 % | [facility] | | | | | | DEPARTMENT | | | | | | OF | | | | | | PATHOLOGY | | + + + + + + | MCV | 89.0 | 80.0 - 96.0 fL | [facility] | | | | | | DEPARTMENT | | | | | | OF | | | | | | PATHOLOGY | | + + + + + + | MCHC | 34.0 | 33.4 - 35.5 | [facility] | | | | | g/dL | DEPARTMENT | | | | | | OF | | | | | | PATHOLOGY | | + + + + + + | RDW | 14.3 | 11.5 - 15.0 % | [facility] | | | | | | DEPARTMENT | | | | | | OF | | | | | | PATHOLOGY | | + + + + + + | PLATELET | 272 | 150 - 400 K/cu | [facility] [...] DEPARTMENT OF | [address] | [place] [address] | | | PATHOLOGY | [address] | | | + + + + + CULTURE, BLOOD BACTI & YEAST (12/31/2009 11:02 PM PST) + + + + + + | Component | Value | Ref Range | Performed | Pathologist | | | | | At | Signature | + + + + + + | SOURCE BODY | Right Antecubital | | [facility] | | | SITE | | | [facility] | | | | | | LAB-MICRO | | + + + + + + | CULTURE | Blood Culture | | [facility] | | | RESULT | | | [facility] | | | | Source.................. | | LAB-MICRO | | | | : Right Antecubital | | | | | | | | | | | | Result.................. | | | | | | . Final: No growth at 5 | | | | | | days. | | | | + + + + + + + + | Specimen | + + | Blood | + + + + + + + | Performing | Address | City/State/Zipcode | Phone Number | | Organization | | | | + + + + + | [facility] | [address] | [place] [address] | | | LAB-MICRO | | | | + + + + + MRI SPINE LUMBAR WWO CONTR (12/31/2009 10:07 PM PST) + + + + + + | Component | Value | Ref Range | Performed | Pathologist | | | | | At | Signature | + + + + + + | MR LUMBAR | MRI LUMBAR SPINE WITH | | | | | SPINE WWO | AND WITHOUT CONTRAST, | | | | | CONTR | 12/31/09 | | | | | | 22:07:00INDICATION: | | | | | | Evaluate for epidural | | | | | | abscess. Vertebral | | | | | | osteomyelitis.COMPARISON | | | | | | : NoneTECHNIQUE: | | | | | | Multiplanar, | | | | | | multi-sequence | | | | | | surface-coil MR imaging | | | | | | of thelumbar spine was | | | | | | performed with and | | | | | | without | | | | | | intravenousadministratio | | | | | | n of gadolinium-based | | | | | | contrast. LEVELS IMAGED: | | | | | | Lower thoracic to upper | | | | | | sacral region | | | | | | FINDINGS:There is mild | | | | | | retrolisthesis of L5 on | | | | | | S1. The remaining | | | | | | lumbar spineis normally | | | | | | aligned. Vertebral | | | | | | body heights are | | | | | | maintained.Intervertebra | | | | | | l disk heights, with the | | | | | | exception of L5-S1, | | | | | | aremaintained. There | | | | | | is no abnormal fluid | | | | | | signal or enhancement | | | | | | withinthe vertebral | | | | | | bodies. Marrow signal | | | | | | is mildly heterogenous | | | | | | withoutabnormal | | | | | | enhancement. There are | | | | | | scattered T2 and T1 | | | | | | hyperintensefoci at the | | | | | | lumbar and sacral region | | | | | | most consistent | | | | | | withhemangiomas. The | | | | | | largest lesion is in the | | | | | | superior aspect of the | | | | | | [id number] body which | | | | | | measures 9 mm. The | | | | | | conus ends the middle | | | | | | onethird of L2. The | | | | | | distal cord is of normal | | | | | | appearance. T12-L1: | | | | | | No central spinal canal | | | | | | stenosis. No neural | | | | | | foraminalnarrowing. | | | | | | L1-2: No central | | | | | | spinal canal stenosis. | | | | | | No neural | | | | | | foraminalnarrowing | | | | | | L2-3: Diffuse disk | | | | | | bulge without central | | | | | | spinal canal | | | | | | stenosis.Mild bilateral | | | | | | neural foraminal | | | | | | narrowing. . L3-4: | | | | | | Diffuse disk bulge. No | | | | | | central spinal canal | | | | | | stenosis. | | | | | | Mildhypertrophic | | | | | | degenerative changes of | | | | | | the facet joints. | | | | | | Mildbilateral neural | | | | | | foraminal narrowing, | | | | | | right greater than left | | | | | | L4-5: Diffuse disk | | | | | | bulge. Mild | | | | | | hypertrophic | | | | | | degenerative changesof | | | | | | the facet joints. No | | | | | | central spinal canal | | | | | | stenosis. Mild, | | | | | | rightgreater than left | | | | | | neural foraminal | | | | | | narrowing. L5-S1: Loss | | | | | | of intervertebral disk | | | | | | height. Mild | | | | | | enhancement withinthe | | | | | | posterior annular tear. | | | | | | Small posterior annular | | | | | | tear. No fluidsignal | | | | | | seen within the disk. | | | | | | No epidural or | | | | | | paraspinal | | | | | | fluidcollection. Mild | | | | | | bilateral foraminal | | | | | | stenosis secondary to | | | | | | posteriorosteophytes. | | | | | | IMPRESSION:Faint | | | | | | enhancement within the | | | | | | L5-S1 disk which is | | | | | | likely degenerativein | | | | | | nature given the | | | | | | posterior annular tear | | | | | | and loss of disk | | | | | | height..No vertebral | | | | | | body enhancement or | | | | | | epidural collection to | | | | | | suggestepidural abscess | | | | | | or osteomyelitis.. I | | | | | | have personally viewed | | | | | | this procedure/exam and | | | | | | reviewed this report. | | | | | | Author: BROOKS | | | | | | Erik GUPTA: | | | | | | LEANDER HEIN M.D. | | | | | | STATUS FINAL / Dr. TABOR | | | | | | MELVINA | | | | + + + + + + + + | Specimen | + + | | + + + +---------+ + + | Performing | Address | City/State/Zipcode | Phone Number | | Organization | | | | + +---------+ + + | [facility] DEPARTMENT OF | | | | | RADIOLOGY | | | | + +---------+ + + MRI HIPS BILAT WWO CONT (12/31/2009 9:35 PM PST) + + + + + + | Component | Value | Ref Range | Performed | Pathologist | | | | | At | Signature | + + + + + + | MR HIPS | STUDY: MRI bilateral | | | | | BILAT WWO | hips with and without | | | | | CONT | contrast 12/31/09. 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 | | | | | | COMPARISON: None | | | | | | TECHNIQUE: The following | | | | | | sequences were | | | | | | performed through both | | | | | | hipson a 1.5 T magnet:T1 | | | | | | coronal and axialSTIR | | | | | | coronalT2 with fat | | | | | | suppression axialPost | | | | | | contrast axial and | | | | | | coronal T1 weighted | | | | | | images with | | | | | | fatsuppression were | | | | | | obtained following | | | | | | administration of 12 | | | | | | mLintravenous Omniscan. | | | | | | FINDINGS: The marrow | | | | | | signal is normal. | | | | | | Minimal bilateral | | | | | | superiorhip joint space | | | | | | narrowing and non-focal | | | | | | cartilage loss | | | | | | areidentified. There | | | | | | is no hip joint | | | | | | effusion. The | | | | | | symphysis pubis | | | | | | isintact. Mild, left | | | | | | greater than right, | | | | | | anteroinferior | | | | | | sacroiliacspurring and | | | | | | mild subchondral edema | | | | | | are noted. Severe | | | | | | L5-S1 diskspace | | | | | | narrowing is present | | | | | | with more mild disk | | | | | | space narrowing atL4-5. | | | | | | The soft tissues are | | | | | | intact. There is no | | | | | | abnormal focus | | | | | | ofenhancement. The | | | | | | muscles and tendons are | | | | | | intact. IMPRESSION: Mild | | | | | | bilateral sacroiliac | | | | | | and minimal bilateral | | | | | | hip degenerativejoint | | | | | | disease. Severe L5-S1 | | | | | | and mild L4-5 | | | | | | degenerative disk | | | | | | disease, betterevaluated | | | | | | on the lumbar spine MRI | | | | | | from the same day. No | | | | | | evidence of septic | | | | | | arthritis or | | | | | | osteomyelitis. I have | | | | | | personally viewed this | | | | | | procedure/exam and | | | | | | reviewed this report. | | | | | | Author: JAKE LLANES, | | | | | | MDReviewer: JOE | | | | | | Kt VALENTINO STATUS | | | | | | FINAL / Dr. DIAZ | | | | | | SAUSERSTATUS PENDING | | | | | | FINAL APPROVAL / | | | | | | JAKE ELDER | | | | | | PRELIMINARY - UNSIGNED / | | | | | | Dr. JAKE LLANES | | | | + + + + + + + + | Specimen | + + | | + + + +---------+ + + | Performing | Address | City/State/Zipcode | Phone Number | | Organization | | | | + +---------+ + + | [facility] DEPARTMENT OF | | | | | RADIOLOGY | | | | + +---------+ + + 12 LEAD ECG (12/31/2009 7:26 AM PST) + + + + + [...] + + + | ATRIAL RATE | 63 | BPM | [facility] | | | | | | OF | | | | | | CARDIOLOGY | | + + + + + + | P-R | 184 | ms | [facility] | | | INTERVAL | | | OF | | | | | | CARDIOLOGY | | + + + + + + | QRS | 92 | ms | [facility] | | | DURATION | | | OF | | | | | | CARDIOLOGY | | + + + + + + | QT | 438 | ms | [facility] | | | | | | OF | | | | | | CARDIOLOGY | | + + + + + + | QTC | 448 | ms | [facility] | | | | | | OF | | | | | | CARDIOLOGY | | + + + + + + | R AXIS | 19 | degrees | [facility] | | | | | | OF | | | | | | CARDIOLOGY | | + + + + + + | T AXIS | 237 | degrees | [facility] | | | | | | OF | | | | | | CARDIOLOGY | | + + + + + + | EKG | Sinus rhythm with | | [facility] | | | DIAGNOSIS | Possible Premature | | OF | | | | atrial complexes with | | CARDIOLOGY | | | | Aberrant conduction and | | | | | | Premature ventricular | | | | | | complexes or Fusion | | | | | | complexesST & T wave | | | | | | abnormality, consider | | | | | | inferior ischemiaST & T | | | | | | wave abnormality, | | | | | | consider anterolateral | | | | | | ischemiaAbnormal ECG"I | | | | | | have personally | | | | | | interpreted this report, | | | | | | either alone or with a | | | | | | trainee."Confirmed by | | | | | | MANOHAR PALM ([id number]) on | | | | | | 01/03/2010 8:58:37 AM | | | | + + + + + + + + | Specimen | + + | | + + + + + | Narrative | Performed At | + + + | Please click | [facility] DEPT OF | | on view image for the detailed interpretation from Neuro Kinetics results. | CARDIOLOGY | + + + + + + + + | Performing | Address | City/State/Zipcode | Phone Number | | Organization | | | | + + + + + | [facility] DEPT OF | [address] | [place], [place] | | | CARDIOLOGY | [address] | [address] | | + + + + + APTT (ACT. PART. THROMBO TIME) (12/31/2009 6:20 AM PST) + + + + + + | Component | Value | Ref Range | Performed | Pathologist | | | | | At | Signature | + + + + + + | APTT | 61.8 (H)Comment: | 26.0 - 36.0 | [facility] | | | | APTT Therapeutic | seconds | DEPARTMENT | | | | Range | | OF | | | | | | PATHOLOGY | | | | (75-120) sec | | | | | | Heparin | | | | | | levels of 0.35-0.7 U/mL | | | | + + + + + + + + | Specimen | + + | Blood - Blood | + + + + + + + | Performing | Address | City/State/Zipcode | Phone Number | | Organization | | | | + + + + + | [facility] | [address] | [place] [address] | | | PATHOLOGY | [address] | | | + + + + + CULTURE, BLOOD BACTI & YEAST (12/31/2009 6:20 AM PST) + + + + + + | Component | Value | Ref Range | Performed | Pathologist | | | | | At | Signature | + + + + + + | SOURCE BODY | Blood | | [facility] | | | SITE | | | [facility]AL | | | | | | LAB-MICRO | | + + + + + + | CULTURE | Blood Culture | | [facility] | | | RESULT | | | REGIONAL | | | | Source.................. | | LAB-MICRO | | | | : Blood | | | | | | Result.................. | | | | | | . Final: No growth at 5 | | | | | | days. | | | | + + + + + + + + | Specimen | + + | Blood | + + + + + + + | Performing | Address | City/State/Zipcode | Phone Number | | Organization | | | | + + + + + | [facility] | [address] | [place] [address] | | | LAB-MICRO | | | | + + + + + INR (12/31/2009 6:20 AM PST) + + + + + + | Component | Value | Ref Range | Performed | Pathologist | | | | | At | Signature | + + + + + + | INR | 1.50 (H)Comment: | 0.90 - 1.20 INR | [...] | + + + + + | [facility] | [address] | [place] [address] | | | PATHOLOGY | [address] | | | + + + + + BASIC METABOLIC SET (NA, K, CL, TCO2, BUN, CR, GLU, CA) (12/31/2009 6:20 AM PST) + +---------+ + + + | Component | Value | Ref Range | Performed | Pathologist | | | | | At | Signature | + +---------+ + + + | GLUCOSE, | 101 (H) | 60 - 99 mg/dL | [facility] | | | PLASMA | | | DEPARTMENT | | | (LAB) | | | OF | | | | | | PATHOLOGY | | + +---------+ + + + | BUN, PLASMA | 5 (L) | 6 - 20 mg/dL | [facility] | | | (LAB) | | | DEPARTMENT | | | | | | OF | | | | | | PATHOLOGY | | + +---------+ + + + | CREATININE | 0.92 | 0.60 - 1.10 | [facility] | | | PLASMA | | mg/dL | DEPARTMENT | | | (LAB) | | | OF | | | | | | PATHOLOGY | | + +---------+ + + + | SODIUM, | 140 | 134 - 143 | [facility] | | | PLASMA | | mmol/L | DEPARTMENT | | | (LAB) | | | OF | | | | | | PATHOLOGY | | + +---------+ + + + | POTASSIUM, | 3.8 | 3.4 - 5.0 | [facility] | | | PLASMA | | mmol/L | DEPARTMENT | | | (LAB) | | | OF | | | | | | PATHOLOGY | | + +---------+ + + + | CHLORIDE, | 110 (H) | 97 - 108 mmol/L | [facility] | | | PLASMA | | | DEPARTMENT | | | (LAB) | | | OF | | | | | | PATHOLOGY | | + +---------+ + + + | TOTAL CO2, | 26 | 22 - 29 mmol/L | [facility] | | | PLASMA | | | DEPARTMENT | | | (LAB) | | | OF | | | | | | PATHOLOGY | | + +---------+ + + + | CALCIUM, | 8.5 (L) | 8.6 - 10.2 | [facility] | | | PLASMA | | mg/dL | DEPARTMENT | | | (LAB) | | | OF | | | | | | PATHOLOGY | | + +---------+ + + + | ANION GAP | 4 | 4 - 11 mmol/L | [facility] | | | | | | DEPARTMENT | | | | | | OF | | | | | | PATHOLOGY | | + +---------+ + + + + + | Specimen | + + | Blood - Blood | + + + + + + + | Performing | Address | City/State/Zipcode | Phone Number | | Organization | | | | + + + + + | [facility] | [address] | [place] [address] | | | PATHOLOGY | [address] | | | + + + + + CBC ONLY (12/31/2009 6:20 AM PST) + + + + + [...] + + + | RED CELL | 2.89 (L) | 4.00 - 5.20 | [facility] | | | COUNT | | M/cu mm | DEPARTMENT | | | | | | OF | | | | | | PATHOLOGY | | + + + + + + | HEMOGLOBIN | 8.8 (L) | 12.0 - 16.0 | [facility] | | | | | g/dL | DEPARTMENT | | | | | | OF | | | | | | PATHOLOGY | | + + + + + + | HEMATOCRIT | 25.6 (L) | 36.0 - 46.0 % | [facility] | | | | | | DEPARTMENT | | | | | | OF | | | | | | PATHOLOGY | | + + + + + + | MCV | 88.9 | 80.0 - 96.0 fL | [facility] | | | | | | DEPARTMENT | | | | | | OF | | | | | | PATHOLOGY | | + + + + + + | MCHC | 34.5 | 33.4 - 35.5 | [facility] | | | | | g/dL | DEPARTMENT | | | | | | OF | | | | | | PATHOLOGY | | + + + + + + | RDW | 14.6 | 11.5 - 15.0 % | [facility] | | | | | | DEPARTMENT | | | | | | OF | | | | | | PATHOLOGY | | + + + + + + | PLATELET | 271 | 150 - 400 K/cu | [facility] [...] | + + + + + | [facility] | [address] | [place] [address] | | | PATHOLOGY | [address] | | | + + + + + CULTURE, BLOOD BACTI & YEAST (12/30/2009 10:01 PM PST) + + + + + + | Component | Value | Ref Range | Performed | Pathologist | | | | | At | Signature | + + + + + + | SOURCE BODY | Blood | | [facility] | | | SITE | | | [facility] | | | | | | [facility] | | + + + + + + | CULTURE | Dr Cancel | | [facility] | | | RESULT | | | [facility] | | | | | | [facility] | | + + + + + + + + | Specimen | + + | Blood | + + + + + | Narrative | Performed At | + + + | Request cancelled by physician/floor TARAN/EDY NOTIFIED | [facility] | | | [facility] | | | [facility] | + + + + + + + + | Performing | Address | City/State/Zipcode | Phone Number | | Organization | | | | + + + + + | [facility] | [address] | [place] [address] | | | [facility] | | | | + + + + + IRON AND TIBC, SERUM (12/30/2009 4:55 PM PST) + +---------+ + + + | Component | Value | Ref Range | Performed | Pathologist | | | | | At | Signature | + +---------+ + + + | IRON SERUM | 30 (L) | 40 - 150 ug/dL | [facility] | | | | | | [facility] | | | | | | LABORATORY | | + +---------+ + + + | IRON BIND | 190 (L) | 225 - 410 ug/dL | [facility] | | | [facility] | | | [facility] | | | | | | LABORATORY | | + +---------+ + + + | % | 16 (L) | 20 - 50 % | [facility] | | | SATUR[facility] | | | [facility] | | | TRANSFERRIN | | | LABORATORY | | | , SERUM | | | | | + +---------+ + + + + + | Specimen | + + | Blood - Blood | + + + + + | Narrative | Performed At | + + + | Reference Range Change effective 03/06/08 | [facility] | | [facility] ([facility] Darryl | [address] | | [place] [address] [address] [employer] [facility] | LABORATORY | | [place] [address] | | + + + + + + + + | Performing | Address | City/State/Zipcode | Phone Number | | Organization | | | | + + + + + | [facility] | [address] | [place] [address] | | | LABORATORY | | | | + + + + + FERRITIN, SERUM (12/30/2009 4:55 PM PST) + + + + + + | Component | Value | Ref Range | Performed | Pathologist | | | | | At | Signature | + + + + + + | FERRITIN | 288 (H)Comment: | 11 - 264 ng/mL | [facility] | | | | Ferritin reference | | REGIONAL | | | | intervals based on study | | LABORATORY | | | | performed at [facility] | | | | | | [facility], | | | | | | [place]. | | | | + + + + + + + + | Specimen | + + | Blood - Blood | + + + + + | Narrative | Performed At | + + + | [facility] ([facility]) [facility] | [facility] | | [place] [address] [facility] | REGIONAL | | [place] [address] | LABORATORY | + + + + + + + + | Performing | Address | City/State/Zipcode | Phone Number | | Organization | | | | + + + + + | [facility] | [address] | [place] [address] | | | LABORATORY | | | | + + + + + CBC ONLY (12/30/2009 4:55 PM PST) + + + + + + | Component | Value | Ref Range | Performed | Pathologist | | | | | At | Signature | + + + + + + | WHITE CELL | 9.1 | 4.4 - 11.0 K/cu | [facility] | | | COUNT | | mm | DEPARTMENT | | | | | | OF | | | | | | PATHOLOGY | | + + + + + + | RED CELL | 3.16 (L) | 4.00 - 5.20 | [facility] | | | COUNT | | M/cu mm | DEPARTMENT | | | | | | OF | | | | | | PATHOLOGY | | + + + + + + | HEMOGLOBIN | 9.6 (L) | 12.0 - 16.0 | [facility] | | | | | g/dL | DEPARTMENT | | | | | | OF | | | | | | PATHOLOGY | | + + + + + + | HEMATOCRIT | 28.4 (L) | 36.0 - 46.0 % | [facility] | | | | | | DEPARTMENT | | | | | | OF | | | | | | PATHOLOGY | | + + + + + + | MCV | 90.1 | 80.0 - 96.0 fL | [facility] | | | | | | DEPARTMENT | | | | | | OF | | | | | | PATHOLOGY | | + + + + + + | MCHC | 33.6 | 33.4 - 35.5 | [facility] | | | | | g/dL | DEPARTMENT | | | | | | OF | | | | | | PATHOLOGY | | + + + + + + | RDW | 14.2 | 11.5 - 15.0 % | [facility] | | | | | | DEPARTMENT | | | | | | OF | | | | | | PATHOLOGY | | + + + + + + | PLATELET | 316 | 150 - 400 K/cu | [facility] [...] | + + + + + | [facility] DEPARTMENT OF | [address] | [place] [address] | | | PATHOLOGY | [address] | | | + + + + + RETICULOCYTE COUNT, BLOOD (12/30/2009 4:55 PM PST) + +---------+ + + + | Component | Value | Ref Range | Performed | Pathologist | | | | | At | Signature | + +---------+ + + + | RETICULOCYT | 2.0 (H) | 0.5 - 1.5 % | [facility] | | | E COUNT | | | DEPARTMENT | | | | | | OF | | | | | | PATHOLOGY | | + +---------+ + + + | RETIC | 62.9 | 10.0 - 90.0 | [facility] | | | ABSOLUTE # | | K/cu mm | DEPARTMENT | | | | | | OF | | | | | | PATHOLOGY | | + +---------+ + + + + + | Specimen | + + | Blood - Blood | + + + + + + + | Performing | Address | City/State/Zipcode | Phone Number | | Organization | | | | + + + + + | [facility] | [address] | [place] [address] | | | PATHOLOGY | [address] | | | + + + + + HAPTOGLOBIN, SERUM (12/30/2009 4:55 PM PST) + + + + + + | Component | Value | Ref Range | Performed | Pathologist | | | | | At | Signature | + + + + + + | HAPTOGLOBIN | < 30 (L) | 30 - 200 mg/dL | [facility] | | | | | | REGIONAL | | | | | | LABORATORY | | + + + + + + + + | Specimen | + + | Blood - Blood | + + + + + | Narrative | Performed At | + + + | Reference Range Change effective 03/06/08 | [facility] | | [facility] ([facility] [address] | REGIONAL | | [address] | LABORATORY | | [place] [address] | | + + + + + + + + | Performing | Address | City/State/Zipcode | Phone Number | | Organization | | | | + + + + + | [facility] | [address] | [place] [address] | | | LABORATORY | | | | + + + + + LDH TOTAL, PLASMA (12/30/2009 4:55 PM PST) + +---------+ + + + | Component | Value | Ref Range | Performed | Pathologist | | | | | At | Signature | + +---------+ + + + | LD TOTAL, | 294 (H) | 110 - 205 U/L | [facility] | | | PLASMA | | | DEPARTMENT | | | | | | OF | | | | | | PATHOLOGY | | + +---------+ + + + + + | Specimen | + + | Blood - Blood | + + + + + + + | Performing | Address | City/State/Zipcode | Phone Number | | Organization | | | | + + + + + | [facility] DEPARTMENT OF | [address] | [place] [address] | | | PATHOLOGY | [address] | | | + + + + + CULTURE, BLOOD BACTI & YEAST (12/30/2009 4:55 PM PST) + + + + + + | Component | Value | Ref Range | Performed | Pathologist | | | | | At | Signature | + + + + + + | SOURCE BODY | Right Antecubital | | [facility] | | | SITE | | | REGIONAL | | | | | | LAB-MICRO | | + + + + + + | CULTURE | Blood Culture | | [facility] | | | RESULT | | | REGIONAL | | | | Source.................. | | LAB-MICRO | | | | : Right Antecubital | | | | | | | | | | | | Result.................. | | | | | | . Final: No growth at 5 | | | | | | days. | | | | + + + + + + + + | Specimen | + + | Blood | + + + + + + + | Performing | Address | City/State/Zipcode | Phone Number | | Organization | | | | + + + + + | [facility] | [address] | [place] [address] | | | LAB-MICRO | | | | + + + + + APTT (ACT. PART. THROMBO TIME) (12/30/2009 6:11 AM PST) + + + + + + | Component | Value | Ref Range | Performed | Pathologist | | | | | At | Signature | + + + + + + | APTT | 51.3 (H)Comment: | 26.0 - 36.0 | [facility] | | | | APTT Therapeutic | seconds | DEPARTMENT | | | | Range | | OF | | | | | | PATHOLOGY | | | | (75-120) sec | | | | | | Heparin | | | | | | levels of 0.35-0.7 U/mL | | | | + + + + + + + + | Specimen | + + | Blood - Blood | + + + + + + + | Performing | Address | City/State/Zipcode | Phone Number | | Organization | | | | + + + + + | [facility] DEPARTMENT OF | [address] | [place] [address] | | | PATHOLOGY | [address] | | | + + + + + INR (12/30/2009 6:11 AM PST) + + + + + + | Component | Value | Ref Range | Performed | Pathologist | | | | | At | Signature | + + + + + + | INR | 1.50 (H)Comment: | 0.90 - 1.20 INR | [facility] | | | | INR [...] | + + + + + | [facility] | [address] | [place] [address] | | | PATHOLOGY | [address] | | | + + + + + BASIC METABOLIC SET (NA, K, CL, TCO2, BUN, CR, GLU, CA) (12/30/2009 6:11 AM PST) + +---------+ + + + | Component | Value | Ref Range | Performed | Pathologist | | | | | At | Signature | + +---------+ + + + | GLUCOSE, | 107 (H) | 60 - 99 mg/dL | [facility] | | | PLASMA | | | DEPARTMENT | | | (LAB) | | | OF | | | | | | PATHOLOGY | | + +---------+ + + + | BUN, PLASMA | 6 | 6 - 20 mg/dL | [facility] | | | (LAB) | | | DEPARTMENT | | | | | | OF | | | | | | PATHOLOGY | | + +---------+ + + + | CREATININE | 0.84 | 0.60 - 1.10 | [facility] | | | PLASMA | | mg/dL | DEPARTMENT | | | (LAB) | | | OF | | | | | | PATHOLOGY | | + +---------+ + + + | SODIUM, | 139 | 134 - 143 | [facility] | | | PLASMA | | mmol/L | DEPARTMENT | | | (LAB) | | | OF | | | | | | PATHOLOGY | | + +---------+ + + + | POTASSIUM, | 3.9 | 3.4 - 5.0 | [facility] | | | PLASMA | | mmol/L | DEPARTMENT | | | (LAB) | | | OF | | | | | | PATHOLOGY | | + +---------+ + + + | CHLORIDE, | 107 | 97 - 108 mmol/L | [facility] | | | PLASMA | | | DEPARTMENT | | | (LAB) | | | OF | | | | | | PATHOLOGY | | + +---------+ + + + | TOTAL CO2, | 27 | 23 - 31 mmol/L | [facility] | | | PLASMA | | | DEPARTMENT | | | (LAB) | | | OF | | | | | | PATHOLOGY | | + +---------+ + + + | CALCIUM, | 8.3 (L) | 8.6 - 10.2 | [facility] | | | PLASMA | | mg/dL | DEPARTMENT | | | (LAB) | | | OF | | | | | | PATHOLOGY | | + +---------+ + + + | ANION GAP | 5 | 4 - 11 mmol/L | [facility] | | | | | | DEPARTMENT | | | | | | OF | | | | | | PATHOLOGY | | + +---------+ + + + + + | Specimen | + + | Blood - Blood | + + + + + + + | Performing | Address | City/State/Zipcode | Phone Number | | Organization | | | | + + + + + | [facility] DEPARTMENT OF | [address] | [place] [address] | | | PATHOLOGY | [address] | | | + + + + + CBC ONLY (12/30/2009 6:11 AM PST) + + + + + + | Component | Value | Ref Range | Performed | Pathologist | | | | | At | Signature | + + + + + + | WHITE CELL | 6.9 | 4.4 - 11.0 K/cu | [facility] | | | COUNT | | mm | DEPARTMENT | | | | | | OF | | | | | | PATHOLOGY | | + + + + + + | RED CELL | 2.87 (L) | 4.00 - 5.20 | [facility] | | | COUNT | | M/cu mm | DEPARTMENT | | | | | | OF | | | | | | PATHOLOGY | | + + + + + + | HEMOGLOBIN | 8.8 (L) | 12.0 - 16.0 | [facility] | | | | | g/dL | DEPARTMENT | | | | | | OF | | | | | | PATHOLOGY | | + + + + + + | HEMATOCRIT | 25.6 (L) | 36.0 - 46.0 % | [facility] | | | | | | DEPARTMENT | | | | | | OF | | | | | | PATHOLOGY | | + + + + + + | MCV | 89.3 | 80.0 - 96.0 fL | [facility] | | | | | | DEPARTMENT | | | | | | OF | | | | | | PATHOLOGY | | + + + + + + | MCHC | 34.3 | 33.4 - 35.5 | [facility] | | | | | g/dL | DEPARTMENT | | | | | | OF | | | | | | PATHOLOGY | | + + + + + + | RDW | 14.2 | 11.5 - 15.0 % | [facility] | | | | | | DEPARTMENT | | | | | | OF | | | | | | PATHOLOGY | | + + + + + + | PLATELET | 261 | 150 - 400 K/cu | [facility] [...] DEPARTMENT OF | [address] | [place] [address] | | | PATHOLOGY | [address] | | | + + + + + 12 LEAD ECG (12/30/2009 4:56 AM PST) + + + + + + | Component | Value | Ref Range | Performed | Pathologist | | | | | At | Signature | + + + + + + | VENTRICULAR | 60 | BPM | [facility] | | | RATE | | | OF | | | | | | CARDIOLOGY | | + + + + + + | ATRIAL RATE | 93 | BPM | [facility] | | | | | | OF | | | | | | CARDIOLOGY | | + + + + + + | QRS | 88 | ms | [facility] | | | DURATION | | | OF | | | | | | CARDIOLOGY | | + + + + + + | QT | 444 | ms | [facility] | | | | | | OF | | | | | | CARDIOLOGY | | + + + + + + | QTC | 444 | ms | [facility] | | | | | | OF | | | | | | CARDIOLOGY | | + + + + + + | P AXIS | -76 | degrees | [facility] | | | | | | OF | | | | | | CARDIOLOGY | | + + + + + + | R AXIS | 11 | degrees | [facility] | | | | | | OF | | | | | | CARDIOLOGY | | + + + + + + | T AXIS | -89 | degrees | [facility] | | | | | | OF | | | | | | CARDIOLOGY | | + + + + + + | EKG | Sinus bradycardia with | | [facility] | | | DIAGNOSIS | junctional escapeRight | | OF | | | | bundle branch blockST & | | CARDIOLOGY | | | | T wave abnormality, | | | | | | consider inferior | | | | | | ischemiaST & T wave | | | | [...] on | | | | | | 01/03/2010 8:39:32 AM | | | | + + + + + + + + | Specimen | + + | | + + + + + | Narrative | Performed At | + + + | Please click | [facility] | | on view image for the detailed interpretation from Neuro Kinetics results. | CARDIOLOGY | + + + + + + + + | Performing | Address | City/State/Zipcode | Phone Number | | Organization | | | | + + + + + | [facility] DE[facility] OF | [address] | [place], [place] | | | CARDIOLOGY | [address] | [address] | | + + + + + RESP CARE THERAPY (12/30/2009 3:39 AM PST) + + + + +------ --------+ | Component | Value | Ref Range | Performed | Patho logist | | | | | At | Signa ture | + + + + +------ --------+ | RESPIRATORY | Nasal cannula at 2 LPM. | | [facility] | | | CARE | Electronically | | RESPIRATORY | | | | Signed by: Calin Abad, | | THERAPY | | | | LEGAL RECOVERY SPECIALIST | | | | | | | | | | | | | | | | | | | | | | | | | | | | | | | | | | | |Electronically Signed by: Calin Abad LEGAL RECOVERY SPECIALIST | | | | + + + + +------ --------+ + + | Specimen | + + | | + + + + + + + | Performing | Address | City/State/Zipcode | Phone Number | | Organization | | | | + + + + + | [facility] RESPIR[facility] | [address] | [place], [place] | | | THERAPY | [address] | [address] | | + + + + + APTT (ACT. PART. THROMBO TIME) (12/30/2009 12:43 AM PST) + + + + + + | Component | Value | Ref Range | Performed | Pathologist | | | | | At | Signature | + + + + + + | APTT | 50.1 (H)Comment: | 26.0 - 36.0 | [facility] | | | | APTT Therapeutic | seconds | DEPARTMENT | | | | Range | | OF | | | | | | PATHOLOGY | | | | (75-120) sec | | | | | | Heparin | | | | | | levels of 0.35-0.7 U/mL | | | | + + + + + + + + | Specimen | + + | Blood - Blood | + + + + + + + | Performing | Address | City/State/Zipcode | Phone Number | | Organization | | | | + + + + + | [facility] | [address] | [place] [address] | | | PATHOLOGY | [address] | | | + + + + + APTT (ACT. PART. THROMBO TIME) (12/29/2009 6:22 PM PST) + + + + + + | Component | Value | Ref Range | Performed | Pathologist | | | | | At | Signature | + + + + + + | APTT | 51.3 (H)Comment: | 26.0 - 36.0 | [facility] | | | | APTT Therapeutic | seconds | DEPARTMENT | | | | Range | | OF | | | | | | PATHOLOGY | | | | (75-120) sec | | | | | | Heparin | | | | | | levels of 0.35-0.7 U/mL | | | | + + + + + + + + | Specimen | + + | Blood - Blood | + + + + + + + | Performing | Address | City/State/Zipcode | Phone Number | | Organization | | | | + + + + + | [facility] DEPARTMENT OF | [address] | [place] [address] | | | PATHOLOGY | [address] | | | + + + + + CBC ONLY (12/29/2009 3:12 PM PST) + + + + + + | Component | Value | Ref Range | Performed | Pathologist | | | | | At | Signature | + + + + + + | WHITE CELL | 9.1 | 4.4 - 11.0 K/cu | [facility] | | | COUNT | | mm | DEPARTMENT | | | | | | OF | | | | | | PATHOLOGY | | + + + + + + | RED CELL | 3.14 (L) | 4.00 - 5.20 | [facility] | | | COUNT | | M/cu mm | DEPARTMENT | | | | | | OF | | | | | | PATHOLOGY | | + + + + + + | HEMOGLOBIN | 9.6 (L) | 12.0 - 16.0 | [facility] | | | | | g/dL | DEPARTMENT | | | | | | OF | | | | | | PATHOLOGY | | + + + + + + | HEMATOCRIT | 28.1 (L) | 36.0 - 46.0 % | [facility] | | | | | | DEPARTMENT | | | | | | OF | | | | | | PATHOLOGY | | + + + + + + | MCV | 89.3 | 80.0 - 96.0 fL | [facility] | | | | | | DEPARTMENT | | | | | | OF | | | | | | PATHOLOGY | | + + + + + + | MCHC | 34.2 | 33.4 - 35.5 | [facility] | | | | | g/dL | DEPARTMENT | | | | | | OF | | | | | | PATHOLOGY | | + + + + + + | RDW | 13.9 | 11.5 - 15.0 % | [facility] | | | | | | DEPARTMENT | | | | | | OF | | | | | | PATHOLOGY | | + + + + + + | PLATELET | 284 | 150 - 400 K/cu | [facility] [...] | + + + + + | [facility] | [address] | [place] [address] | | | PATHOLOGY | [address] | | | + + + + + CULTURE, BLOOD BACTI & YEAST (12/29/2009 3:07 PM PST) + + + + + + | Component | Value | Ref Range | Performed | Pathologist | | | | | At | Signature | + + + + + + | SOURCE BODY | Blood Right Antecubital | | [facility] | | | SITE | | | REGIONAL | | | | | | LAB-MICRO | | + + + + + + | CULTURE | Blood Culture | | [facility] | | | RESULT | | | REGIONAL | | | | Source.................. | | LAB-MICRO | | | | : Blood Right | | | | | | Antecubital | | | | | | Result.................. | | | | | | . Final: No growth at 5 | | | | | | days. | | | | + + + + + + + + | Specimen | + + | Blood | + + + + + + + | Performing | Address | City/State/Zipcode | Phone Number | | Organization | | | | + + + + + | [facility] | [address] | [place] [address] | | | LAB-MICRO | | | | + + + + + CULTURE, BLOOD BACTI & YEAST (12/29/2009 3:07 PM PST) + + + + + + | Component | Value | Ref Range | Performed | Pathologist | | | | | At | Signature | + + + + + + | SOURCE BODY | Blood Left Antecubital | | [facility] | | | SITE | | | REGIONAL | | | | | | LAB-MICRO | | + + + + + + | CULTURE | Blood Culture | | [facility] | | | RESULT | | | REGIONAL | | | | Source.................. | | LAB-MICRO | | | | : Blood Left Antecubital | | | | | | | | | | | | Result.................. | | | | | | . Final: No growth at 5 | | | | | | days. | | | | + + + + + + + + | Specimen | + + | Blood | + + + + + + + | Performing | Address | City/State/Zipcode | Phone Number | | Organization | | | | + + + + + | [facility] | [address] | [place] [address] | | | LAB-MICRO | | | | + + + + + TROPONIN I, PLASMA (12/29/2009 1:12 PM PST) + + + + + + | Component | Value | Ref Range | Performed | Pathologist | | | | | At | Signature | + + + + + + | TROPONIN I | 1.80 (H) | <0.50 ng/mL | [facility] | | | | | [...] [facility] DEPARTMENT | [address] | [place] [address] | | | PATHOLOGY | [address] | | | + + + + + VANCOMYCIN, TROUGH (12/29/2009 8:18 AM PST) + +-------+ + + + | Component | Value | Ref Range | Performed | Pathologist | | | | | At | Signature | + +-------+ + + + | VANCOMYCIN, | 14.0 | 5.0 - 15.0 | [facility] | | | TROUGH | | ug/mL | DEPARTMENT | | | | | [...] | + + + + + | [facility] | [address] | [place] [address] | | | PATHOLOGY | [address] | | | + + + + + BASIC METABOLIC SET (NA, K, CL, TCO2, BUN, CR, GLU, CA) (12/29/2009 5:01 AM PST) + + + + + + | Component | Value | Ref Range | Performed | Pathologist | | | | | At | Signature | + + + + + + | GLUCOSE, | [address] | 60 - 99 mg/dL | [facility] | | | PLASMA | | | DEPARTMENT | | | (LAB) | | | OF | | | | | | PATHOLOGY | | + + + + + + | BUN, PLASMA | See cmnt | 6 - 20 mg/dL | [facility] | | | (LAB) | | | DEPARTMENT | | | | | | OF | | | | | | PATHOLOGY | | + + + + + + | CREATININE | See cmnt | 0.60 - 1.10 | [facility] | | | PLASMA | | mg/dL | DEPARTMENT | | | (LAB) | | | OF | | | | | | PATHOLOGY | | + + + + + + | SODIUM, | See cmnt | 134 - 143 | [facility] | | | PLASMA | | mmol/L | DEPARTMENT | | | (LAB) | | | OF | | | | | | PATHOLOGY | | + + + + + + | POTASSIUM, | See cmnt | 3.4 - 5.0 | [facility] | | | PLASMA | | mmol/L | DEPARTMENT | | | (LAB) | | | OF | | | | | | PATHOLOGY | | + + + + + + | CHLORIDE, | See cmnt | 97 - 108 mmol/L | [facility] | | | PLASMA | | | DEPARTMENT | | | (LAB) | | | OF | | | | | | PATHOLOGY | | + + + + + + | TOTAL CO2, | See cmnt | 23 - 31 mmol/L | [facility] | | | PLASMA | | | DEPARTMENT | | | (LAB) | | | OF | | | | | | PATHOLOGY | | + + + + + + | CALCIUM, | See cmnt | 8.6 - 10.2 | [facility] | | | PLASMA | | mg/dL | DEPARTMENT | | | (LAB) | | | OF | | | | | | PATHOLOGY | | + + + + + + | POTASSIUM | See cmnt | | [facility] | | | CMNT | | | DEPARTMENT | | | | | | OF | | | | | | PATHOLOGY | | + + + + + + + + | Specimen | + + | Blood - Blood | + + + + + | Narrative | Performed At | + + + | Specimen already drawn | [facility] | | | DEPARTMENT OF | | | PATHOLOGY | + + + + + + + + | Performing | Address | City/State/Zipcode | Phone Number | | Organization | | | | + + + + + | [facility] DEPARTMENT OF | [address] | [place] [address] | | | PATHOLOGY | [address] | | | + + + + + CBC ONLY (12/29/2009 5:01 AM PST) + + + + + + | Component | Value | Ref Range | Performed | Pathologist | | | | | At | Signature | + + + + + + | WHITE CELL | Melania Clark | 4.4 - 11.0 K/cu | [facility] | | | COUNT | | mm | DEPARTMENT | | | | | | OF | | | | | | PATHOLOGY | | + + + + + + | RED CELL | See cmnt | 4.00 - 5.20 | [facility] | | | COUNT | | M/cu mm | DEPARTMENT | | | | | | OF | | | | | | PATHOLOGY | | + + + + + + | HEMOGLOBIN | See cmnt | 12.0 - 16.0 | [facility] | | | | | g/dL | DEPARTMENT | | | | | | OF | | | | | | PATHOLOGY | | + + + + + + | HEMATOCRIT | See cmnt | 36.0 - 46.0 % | [facility] | | | | | | DEPARTMENT | | | | | | OF | | | | | | PATHOLOGY | | + + + + + + | MCV | See cmnt | 80.0 - 96.0 fL | [facility] | | | | | | DEPARTMENT | | | | | | OF | | | | | | PATHOLOGY | | + + + + + + | MCHC | See cmnt | 33.4 - 35.5 | [facility] | | | | | g/dL | DEPARTMENT | | | | | | OF | | | | | | PATHOLOGY | | + + + + + + | RDW | See cmnt | 11.5 - 15.0 % | [facility] | | | | | | DEPARTMENT | | | | | | OF | | | | | | PATHOLOGY | | + + + + + + | PLATELET | See cmnt | 150 - 400 K/cu | [facility] [...] Performed At | + + + | Specimen already drawn per Baldemar RN pt was drawn Free Text | [facility] | | changed 12/29/09 05:54: previously reported as: Specimen already | DEPARTMENT OF | | drawn | PATHOLOGY | + + + + + + + + | Performing | Address | City/State/Zipcode | Phone Number | | Organization | | | | + + + + + | [facility] DEPARTMENT OF | [address] | [place] [address] | | | PATHOLOGY | [address] | | | + + + + + LIVER SET (AST,ALT,BILI TOTAL,BILI DIRECT,ALK PHOS,ALB,PROT TOTAL) (12/29/2009 5:01 AM PST ) + + + + + + | Component | Value | Ref Range | Performed | Pathologist | | | | | At | Signature | + + + + + + | ALBUMIN, | See cmnt | 3.5 - 4.7 g/dL | [facility] | | | PLASMA | | | DEPARTMENT | | | (LAB) | | | OF | | | | | | PATHOLOGY | | + + + + + + | BILIRUBIN | See cmnt | 0.3 - 1.2 mg/dL | [facility] | | | TOTAL | | | DEPARTMENT | | | | | | OF | | | | | | PATHOLOGY | | + + + + + + | BILIRUBIN | See cmnt | <0.4 mg/dL | [facility] | | | DIRECT | | | DEPARTMENT | | | | | | OF | | | | | | PATHOLOGY | | + + + + + + | ALK PHOS | See cmnt | 53 - 141 U/L | [facility] | | | | | | DEPARTMENT | | | | | | OF | | | | | | PATHOLOGY | | + + + + + + | AST(SGOT) | See cmnt | 15 - 41 U/L | [facility] | | | | | | DEPARTMENT | | | | | | OF | | | | | | PATHOLOGY | | + + + + + + | ALT (SGPT) | See cmnt | 13 - 48 U/L | [facility] | | | | | | DEPARTMENT | | | | | | OF | | | | | | PATHOLOGY | | + + + + + + | TOTAL | See cmnt | 6.1 - 7.9 g/dL | [facility] | | | PROTEIN, | | | DEPARTMENT | | | PLASMA | | | OF | | | (LAB) | | | PATHOLOGY | | + + + + + + | AST CMNT | See cmnt | | [facility] | | | | | | DEPARTMENT | | | | | | OF | | | | | | PATHOLOGY | | + + + + + + | BILI T CMNT | See cmnt | | [facility] | | | | | | DEPARTMENT | | | | | | OF | | | | | | PATHOLOGY | | + + + + + + | BILI D CMNT | See cmnt | | [facility] | | | | | | DEPARTMENT | | | | | | OF | | | | | | PATHOLOGY | | + + + + + + + + | Specimen | + + | Blood - Blood | + + + + + | Narrative | Performed At | + + + | Specimen already drawn | [facility] | | | DEPARTMENT OF | | | PATHOLOGY | + + + + + + + + | Performing | Address | City/State/Zipcode | Phone Number | | Organization | | | | + + + + + | [facility] DEPARTMENT OF | [id number] | [place] [address] | | | PATHOLOGY | [address] | | | + + + + + INR (12/29/2009 5:01 AM PST) + + + + + + | Component | Value | Ref Range | Performed | Pathologist | | | | | At | Signature | + + + + + + | INR | Melania Clark | 0.90 - 1.20 INR | [facility] | | | | | | DEPARTMENT | | | | | | OF | | | | | | PATHOLOGY | | + + + + + + + + | Specimen | + + | Blood - Blood | + + + + + | Narrative | Performed At | + + + | per Baldemar SNOW pt was drawn | [facility] | | | DEPARTMENT OF | | | PATHOLOGY | + + + + + + + + | Performing | Address | City/State/Zipcode | Phone Number | | Organization | | | | + + + + + | [facility] DEPARTMENT OF | [address] | [place] [address] | | | PATHOLOGY | [address] | | | + + + + + RESP CARE THERAPY (12/29/2009 4:56 AM PST) + + + + +-- + | Component | Value | Ref Range | Performed | P athologist | | | | | At | S ignature | + + + + +-- + | RESPIRATORY | Nasal cannula at 2 LPM. | | [facility] | | | CARE | Electronically | | RESPIRATORY | | | | Signed by: Musa | Mariia LOBO | | | | ORI Salas | | | | | | | | | | | | | | | | | | | | | | | | | | | | | | | | | | | |Electronically Signed by: Musa Salas RCP | | | | + + + + +-- + + + | Specimen | + + | | + + + + + + + | Performing | Address | City/State/Zipcode | Phone Number | | Organization | | | | + + + + + | [facility] RESPIRATORY | [address] | [place], [place] | | | THERAPY | [address] | [phone] | | + + + + + LIVER SET (AST,ALT,BILI TOTAL,BILI DIRECT,ALK PHOS,ALB,PROT TOTAL) (12/29/2009 4:45 AM PST ) + +---------+ + + + | Component | Value | Ref Range | Performed | Pathologist | | | | | At | Signature | + +---------+ + + + | ALBUMIN, | 2.5 (L) | 3.5 - 4.7 g/dL | [facility] | | | PLASMA | | | DEPARTMENT | | | (LAB) | | | OF | | | | | | PATHOLOGY | | + +---------+ + + + | BILIRUBIN | 1.0 | 0.3 - 1.2 mg/dL | [facility] | | | TOTAL | | | DEPARTMENT | | | | | | OF | | | | | | PATHOLOGY | | + +---------+ + + + | BILIRUBIN | 0.3 | <0.4 mg/dL | [facility] | | | DIRECT | | | DEPARTMENT | | | | | | OF | | | | | | PATHOLOGY | | + +---------+ + + + | ALK PHOS | 60 | 53 - 141 U/L | [facility] | | | | | | DEPARTMENT | | | | | | OF | | | | | | PATHOLOGY | | + +---------+ + + + | AST(SGOT) | 24 | 15 - 41 U/L | [facility] | | | | | | DEPARTMENT | | | | | | OF | | | | | | PATHOLOGY | | + +---------+ + + + | ALT (SGPT) | 15 | 13 - 48 U/L | [facility] | | | | | | DEPARTMENT | | | | | | OF | | | | | | PATHOLOGY | | + +---------+ + + + | TOTAL | 5.8 (L) | 6.1 - 7.9 g/dL | [facility] | | | PROTEIN, | | | DEPARTMENT | | | PLASMA | | | OF | | | (LAB) | | | PATHOLOGY | | + +---------+ + + + + + | Specimen | + + | Blood - Blood | + + + + + + + | Performing | Address | City/State/Zipcode | Phone Number | | Organization | | | | + + + + + | [facility] | [address] | [place] [address] | | | PATHOLOGY | [address] | | | + + + + + INR (12/29/2009 4:45 AM PST) + + + + + + | Component | Value | Ref Range | Performed | Pathologist | | | | | At | Signature | + + + + + + | INR | 1.60 (H)Comment: | 0.90 - 1.20 INR | [facility] | | | | INR [...] | + + + + + | [facility] DEPARTMENT OF | [address] | [place] [address] | | | PATHOLOGY | [address] | | | + + + + + CBC ONLY (12/29/2009 4:45 AM PST) + + + + + + | Component | Value | Ref Range | Performed | Pathologist | | | | | At | Signature | + + + + + + | WHITE CELL | 10.0 | 4.4 - 11.0 K/cu | [facility] | | | COUNT | | mm | DEPARTMENT | | | | | | OF | | | | | | PATHOLOGY | | + + + + + + | RED CELL | 3.08 (L) | 4.00 - 5.20 | [facility] | | | COUNT | | M/cu mm | DEPARTMENT | | | | | | OF | | | | | | PATHOLOGY | | + + + + + + | HEMOGLOBIN | 9.3 (L) | 12.0 - 16.0 | [facility] | | | | | g/dL | DEPARTMENT | | | | | | OF | | | | | | PATHOLOGY | | + + + + + + | HEMATOCRIT | 27.3 (L) | 36.0 - 46.0 % | [facility] | | | | | | DEPARTMENT | | | | | | OF | | | | | | PATHOLOGY | | + + + + + + | MCV | 88.7 | 80.0 - 96.0 fL | [facility] | | | | | | DEPARTMENT | | | | | | OF | | | | | | PATHOLOGY | | + + + + + + | MCHC | 34.0 | 33.4 - 35.5 | [facility] | | | | | g/dL | DEPARTMENT | | | | | | OF | | | | | | PATHOLOGY | | + + + + + + | RDW | 14.1 | 11.5 - 15.0 % | [facility] | | | | | | DEPARTMENT | | | | | | OF | | | | | | PATHOLOGY | | + + + + + + | PLATELET | 265 | 150 - 400 K/cu | [facility] [...] DEPARTMENT OF | [address] | [place] [address] | | | PATHOLOGY | [address] | | | + + + + + BASIC METABOLIC SET (NA, K, CL, TCO2, BUN, CR, GLU, CA) (12/29/2009 4:45 AM PST) + +---------+ + + + | Component | Value | Ref Range | Performed | Pathologist | | | | | At | Signature | + +---------+ + + + | GLUCOSE, | 113 (H) | 60 - 99 mg/dL | [facility] | | | PLASMA | | | DEPARTMENT | | | (LAB) | | | OF | | | | | | PATHOLOGY | | + +---------+ + + + | BUN, PLASMA | 8 | 6 - 20 mg/dL | [facility] | | | (LAB) | | | DEPARTMENT | | | | | | OF | | | | | | PATHOLOGY | | + +---------+ + + + | CREATININE | 0.72 | 0.60 - 1.10 | [facility] | | | PLASMA | | mg/dL | DEPARTMENT | | | (LAB) | | | OF | | | | | | PATHOLOGY | | + +---------+ + + + | SODIUM, | 138 | 134 - 143 | [facility] | | | PLASMA | | mmol/L | DEPARTMENT | | | (LAB) | | | OF | | | | | | PATHOLOGY | | + +---------+ + + + | POTASSIUM, | 3.8 | 3.4 - 5.0 | [facility] | | | PLASMA | | mmol/L | DEPARTMENT | | | (LAB) | | | OF | | | | | | PATHOLOGY | | + +---------+ + + + | CHLORIDE, | 107 | 97 - 108 mmol/L | [facility] | | | PLASMA | | | DEPARTMENT | | | (LAB) | | | OF | | | | | | PATHOLOGY | | + +---------+ + + + | TOTAL CO2, | 24 | 23 - 31 mmol/L | [facility] | | | PLASMA | | | DEPARTMENT | | | (LAB) | | | OF | | | | | | PATHOLOGY | | + +---------+ + + + | CALCIUM, | 8.4 (L) | 8.6 - 10.2 | [facility] | | | PLASMA | | mg/dL | DEPARTMENT | | | (LAB) | | | OF | | | | | | PATHOLOGY | | + +---------+ + + + | ANION GAP | 7 | 4 - 11 mmol/L | [facility] | | | | | | DEPARTMENT | | | | | | OF | | | | | | PATHOLOGY | | + +---------+ + + + + + | Specimen | + + | Blood - Blood | + + + + + + + | Performing | Address | City/State/Zipcode | Phone Number | | Organization | | | | + + + + + | [facility] | [address] | [place] [address] | | | PATHOLOGY | [address] | | | + + + + + TRANSESOPHAGEAL ECHOCARDIOGRAM, ADULT (12/29/2009 12:00 AM PST) + + + | Narrative | Performed At | + + + | | | + + + + + | Procedure Note | + + | Other, Faculty - 12/29/2009 7:32 PM PST | | | + + GENTAMICIN, PEAK (12/28/2009 11:15 PM PST) + +-------+ + + + | Component | Value | Ref Range | Performed | Pathologist | | | | | At | Signature | + +-------+ + + + | GENTAMICIN, | 6.0 | 5.0 - 8.0 ug/mL | [facility] | | | PEAK | | | DEPARTMENT | | | [...] | + + + + + | [facility] DEPARTMENT OF | [address] | [place] [address] | | | PATHOLOGY | [address] | | | + + + + + GENTAMICIN, TROUGH (12/28/2009 8:44 PM PST) + +-------+ + + + | Component | Value | Ref Range | Performed | Pathologist | | | | | At | Signature | + +-------+ + + + | GENTAMICIN, | 1.6 | <2.0 ug/mL | [facility] | | | TROUGH | | | DEPARTMENT | | | [...] | + + + + + | [facility] | [address] | [place] [address] | | | PATHOLOGY | [address] | | | + + + + + INR (12/28/2009 7:10 PM PST) + + + + + + | Component | Value | Ref Range | Performed | Pathologist | | | | | At | Signature | + + + + + + | INR | 1.70 (H)Comment: | 0.90 - 1.20 INR | [...] + | [facility] DEPARTMENT | [address] | [place] [address] | | | PATHOLOGY | [address] | | | + + + + + TROPONIN I, PLASMA (12/28/2009 4:42 PM PST) + + + + + + | Component | Value | Ref Range | Performed | Pathologist | | | | | At | Signature | + + + + + + | TROPONIN I | 2.87 (H) | <0.50 ng/mL | [facility] | | | | | [...] | + + + + + | [facility] | [address] | [place] [address] | | | PATHOLOGY | [address] | | | + + + + + TSH (12/28/2009 4:51 AM PST) + +-------+ + + + | Component | Value | Ref Range | Performed | Pathologist | | | | | At | Signature | + +-------+ + + + | TSH | 3.49 | 0.34 - 5.60 | [facility] | | | | | uIU/ml | REGIONAL | | | | | | LABORATORY | | + +-------+ + + + + + | Specimen | + + | Blood - Blood | + + + + + | Narrative | Performed At | + + + | [facility]) | [facility] | | [facility] [place] [address] | REGIONAL | | [place] [address] | LABORATORY | + + + + + + + + | Performing | Address | City/State/Zipcode | Phone Number | | Organization | | | | + + + + + | [facility] | [address] | [place] [address] | | | LABORATORY | | | | + + + + + CKMB,SERUM (12/28/2009 4:45 AM PST) + + + + + + | Component | Value | Ref Range | Performed | Pathologist | | | | | At | Signature | + + + + + + | [facility] | 4.2Comment: Performed by | <5.1 ug/L | | | | | [employer], | | | | | | | | | | | | [address] | | | | | | [address], [facility],[place] | | | | | | [phone] | | | | | | | | | | | | www.[employer], | | | | | | Mony Holloway MD - | | | | | | Lab. Director | | | | + + + + + + + + | Specimen | + + | Blood - Blood | + + + + + + + | Performing | Address | City/State/Zipcode | Phone Number | | Organization | | | | + + + + + | [facility] | [address] | [place], [place] | | | [facility] | | [address] | | + + + + + NOTIFICATION (12/28/2009 4:15 AM PST) + + + + + + | Component | Value | Ref Range | Performed | Pathologist | | | | | At | Signature | + + + + + + | TEST NAME | Blood Culture | | [facility] | | | | | | DEPARTMENT | | | | | | OF | | | | | | PATHOLOGY | | + + + + + + | SOURCE | Left Arm | | [facility] | | | | | | DEPARTMENT | | | | | | OF | | | | | | PATHOLOGY | | + + + + + + | RESULT | Gram Stain: GPC in | | [facility] | | | CALLED | chains. Growth in | | DEPARTMENT | | | | Aerobic and Anaerobic | | OF | | | | Bottles. | | PATHOLOGY | | + + + + + + | CALLED TO | Orville Stephen RN on 11K. Read | | JAMES | | | | gayla. 12/29/09 08:58 | | DEPARTMENT | | | | (PW) | | OF | | | | | | PATHOLOGY | | + + + + + + + + | Specimen | + + | | + + + + + + + | Performing | Address | City/State/Zipcode | Phone Number | | Organization | | | | + + + + + | [facility] DEPARTMENT OF | [address] | [place] [address] | | | PATHOLOGY | [address] | | | + + + + + CULTURE, BLOOD BACTI & YEAST (12/28/2009 4:15 AM PST) + + + + + + | Component | Value | Ref Range | Performed | Pathologist | | | | | At | Signature | + + + + + + | SOURCE BODY | Left Arm | | [facility] | | | SITE | | | REGIONAL | | | | | | LAB-MICRO | | + + + + + + | CULTURE | Blood Culture | | [facility] | | | RESULT | | | REGIONAL | | | | Source................: | | LAB-MICRO | | | | Left Arm Gram | | | | | | Stain: Gram positive | | | | | | cocci in chains | | | | | | Enterococcus faecalis | | | | | | | | | | | | | | | | | | Final ID | | | | | | Presumptive | | | | | | Identification | | | | | | Refer to Blood Culture | | | | | | collected 12/27/09 at | | | | | | 21:10 for complete | | | | | | identification and | | | | | | susceptibility results. | | | | | | Growth in Aerobic | | | | | | Bottle Growth in | | | | | | Anaerobic Bottle | | | | | | Final Report | | | | + + + + + + + + | Specimen | + + | Blood - Arm | + + + + + + + | Performing | Address | City/State/Zipcode | Phone Number | | Organization | | | | + + + + + | [facility] | [address] | [place] [address] | | | LAB-MICRO | | | | + + + + + TROPONIN I, PLASMA (12/28/2009 3:38 AM PST) + + + + + + | Component | Value | Ref Range | Performed | Pathologist | | | | | At | Signature | + + + + + + | TROPONIN I | 5.43 (H) | <0.50 ng/mL | [facility] | | | | | [...] | + + + + + | [facility] DEPARTMENT OF | [address] | [place] [address] | | | PATHOLOGY | [address] | | | + + + + + INR (12/28/2009 3:38 AM PST) + + + + + + | Component | Value | Ref Range | Performed | Pathologist | | | | | At | Signature | + + + + + + | INR | 3.43 (H)Comment: | 0.90 - 1.20 INR | [facility] | | | | INR Therapeutic ranges [...] | + + + + + | [facility] | [address] | [place] [address] | | | PATHOLOGY | [address] | | | + + + + + RESP CARE THERAPY (12/28/2009 1:23 AM PST) + + + + +------ --------+ | Component | Value | Ref Range | Performed | Patho logist | | | | | At | Signa ture | + + + + +------ --------+ | RESPIRATORY | Nasal cannula at 2 LPM. | | [facility] | | | CARE | Electronically | | RESPIRATORY | | | | Signed by: Calin Abad, | | THERAPY | | | | LEGAL RECOVERY SPECIALIST | | | | | | | | | | | | | | | | | | | | | | | | | | | | | | | | | | | |Electronically Signed by: AMANDEEP BensonP | | | | + + + + +------ --------+ + + | Specimen | + + | | + + + + + + + | Performing | Address | City/State/Zipcode | Phone Number | | Organization | | | | + + + + + | [facility] RESP[facility]AT[facility] | [address] | [place], [place] | | | THERAPY | [address] | [address] | | + + + + + NOTIFICATION (12/27/2009 10:47 PM PST) + + + + + + | Component | Value | Ref Range | Performed | Pathologist | | | | | At | Signature | + + + + + + | TEST NAME | Blood Culture | | [facility] | | | | | | DEPARTMENT | | | | | | OF | | | | | | PATHOLOGY | | + + + + + + | SOURCE | Blood | | [facility] | | | | | | DEPARTMENT | | | | | | OF | | | | | | PATHOLOGY | | + + + + + + | RESULT | GPC in Chains, both | | [facility] | | | CALLED | bottles | | DEPARTMENT | | | | | | OF | | | | | | PATHOLOGY | | + + + + + + | CALLED TO | Baldemar Alcocer Rn @ 12/28/09 | | [facility] | | | | 1956 *sr | | DEPARTMENT | | | | | | OF | | | | | | PATHOLOGY | | + + + + + + + + | Specimen | + + | | + + + + + + + | Performing | Address | City/State/Zipcode | Phone Number | | Organization | | | | + + + + + | [facility] | [address] | [place] [address] | | | PATHOLOGY | [address] | | | + + + + + CULTURE, BLOOD BACTI & YEAST (12/27/2009 10:47 PM PST) + + + + + + | Component | Value | Ref Range | Performed | Pathologist | | | | | At | Signature | + + + + + + | SOURCE BODY | Blood | | [facility] | | | SITE | | | REGIONAL | | | | | | LAB-MICRO | | + + + + + + | CULTURE | Blood Culture | | [facility] | | | RESULT | | | REGIONAL | | | | Source................: | | LAB-MICRO | | | | Blood Gram | | | | | | Stain: Gram positive | | | | | | cocci in chains | | | | | | Enterococcus faecalis | | | | | | | | | | | | | | | | | | Final ID | | | | | | Presumptive | | | | | | Identification | | | | | | Refer to Blood Culture | | | | | | collected 12/27/09 at | | | | | | 21:10 for complete | | | | | | identification and | | | | | | susceptibility results. | | | | | | Growth in | | | | | | Anaerobic Bottle | | | | | | Growth in Aerobic | | | | | | Bottle Final | | | | | | Report | | | | + + + + + + + + | Specimen | + + | | + + + + + + + | Performing | Address | City/State/Zipcode | Phone Number | | Organization | | | | + + + + + | [facility] | [address] | [place] [address] | | | LAB-MICRO | | | | + + + + + NOTIFICATION (12/27/2009 10:47 PM PST) + + + + + + | Component | Value | Ref Range | Performed | Pathologist | | | | | At | Signature | + + + + + + | TEST NAME | Blood culture | | [facility] | | | | | | DEPARTMENT | | | | | | OF | | | | | | PATHOLOGY | | + + + + + + | SOURCE | Left AC | | [facility] | | | | | | DEPARTMENT | | | | | | OF | | | | | | PATHOLOGY | | + + + + + + | RESULT | Gram positive cocci in | | [facility] | | | CALLED | chains in both bottles. | | DEPARTMENT | | | | Readback done. | | OF | | | | | | PATHOLOGY | | + + + + + + | CALLED TO | Tana on 11K at 1542 | | [facility] | | | | 12/28/09 | | DEPARTMENT | | | | | | OF | | | | | | PATHOLOGY | | + + + + + + + + | Specimen | + + | | + + + + + + + | Performing | Address | City/State/Zipcode | Phone Number | | Organization | | | | + + + + + | [facility] DEPARTMENT OF | [address] | [place] [address] | | | PATHOLOGY | [address] | | | + + + + + INR (12/27/2009 10:47 PM PST) + + + + + + | Component | Value | Ref Range | Performed | Pathologist | | | | | At | Signature | + + + + + + | INR | 4.88 (H)Comment: | 0.90 - 1.20 INR | [facility] | | | | INR [...] | + + + + + | [facility] | [address] | [place] [address] | | | PATHOLOGY | [address] | | | + + + + + CULTURE, BLOOD BACTI & YEAST (12/27/2009 10:47 PM PST) + + + + + + | Component | Value | Ref Range | Performed | Pathologist | | | | | At | Signature | + + + + + + | SOURCE BODY | Left Antecubital | | [facility] | | | SITE | | | REGIONAL | | | | | | LAB-MICRO | | + + + + + + | CULTURE | Blood Culture | | [facility] | | | RESULT | | | REGIONAL | | | | Source................: | | LAB-MICRO | | | | Left Antecubital | | | | | | Gram Stain: Gram | | | | | | positive cocci in chains | | | | | | Enterococcus | | | | | | faecalis | | | | | | | | | | | | Final ID | | | | | | Gentamicin synergy | | | | | | highly probable. | | | | | | Growth in Anaerobic | | | | | | Bottle Growth in | | | | | | Aerobic Bottle | | | | | | | | | | | | E.faecalis | | | | | | Ampicillin | | | | | | S Vancomycin | | | | | | S | | | | | | Final Report | | | | + + + + + + + + | Specimen | + + | Blood | + + + + + | Narrative | Performed At | + + + | left basillic | [facility] | | | REG[facility] | | | LAB-MICRO | + + + + + + + + | Performing | Address | City/State/Zipcode | Phone Number | | Organization | | | | + + + + + | [facility] | [address] | [place] [address] | | | LAB-MICRO | | | | + + + + + X-RAY CHEST 2 VIEW (12/27/2009 10:18 PM PST) + + + + + + | Component | Value | Ref Range | Performed | Pathologist | | | | | At | Signature | + + + + + + | CHEST, 2 | STUDY: CHEST 2 VIEWS | | | | | VIEWS [place] | 12/27/09 22:18:00 | | | | | STEREO | HISTORY: Endocarditis, | | | | | | cough, fever. | | | | | | COMPARISON: 10/14/00. | | | | | | FINDINGS: Median | | | | | | sternotomy wires are | | | | | | again noted, with the | | | | | | superior most wireagain | | | | | | broken. Left atrial | | | | | | enlargement is again | | | | | | present. The | | | | | | cardiacand mediastinal | | | | | | contours are otherwise | | | | | | normal. There is mild | | | | | | centralairway thickening | | | | | | without focal | | | | | | consolidation. Mild | | | | | | left lower | | | | | | lobeatelectasis is | | | | | | noted. No evidence of | | | | | | pulmonary edema. There | | | | | | is nopleural effusion | | | | | | or pneumothorax. There | | | | | | is no acute | | | | | | osseousabnormality. An | | | | | | electronic device is | | | | | | present in the left | | | | | | anteriorchest wall. | | | | | | IMPRESSION: Mild central | | | | | | airway thickening which | | | | | | most commonly reflects | | | | | | lowerrespiratory | | | | | | infection. No focal | | | | | | consolidation or | | | | | | pulmonary edema. Mild | | | | | | left lower lobe | | | | | | atelectasis. Left atrial | | | | | | enlargement. I have | | | | | | personally viewed this | | | | | | procedure/exam and | | | | | | reviewed this report. | | | | | | Author: LEIDY RIOS | | | | | | KtReviewer: JAKE Zepeda | | | | | | MD SHRADDHA STATUS | | | | | | FINAL / Dr. JAKE Zepeda | | | | | | SHRADDHA | | | | + + + + + + + + | Specimen | + + | | + + + +---------+ + + | Performing | Address | City/State/Zipcode | Phone Number | | Organization | | | | + +---------+ + + | [facility] DEPARTMENT OF | | | | | RADIOLOGY | | | | + +---------+ + + LAB REPORTS (12/27/2009 10:02 PM PST) + + + | Narrative | Performed At | + + + | | | + + + + + | Procedure Note | + + | Other, Faculty - 12/27/2009 10:02 PM PST | | | + + RESP CARE THERAPY (12/27/2009 10:00 PM PST) + + + + + + | Component | Value | Ref Range | Performed | Pathologist | | | | | At | Signature | + + + + + + | RESPIRATORY | : History and Assessment | | [facility] | | | CARE | : ENDOCARDITIS | | RESPIRATORY | | | | Pulmonary problems: | | THERAPY | | | | Current problems | | | | | | include, suspected | | | | | | reactive airwaysdisease | | | | | | .Smoking history: The | | | | | | patient is a | | | | | | non-smoker.Results of | | | | | | recent Chest X-ray: was | | | | | | not available at the | | | | | | time of evaluation. | | | | | | Pain: Patients pain | | | | | | assessed and was a 0 on | | | | | | a scale of 0-10.Oxygen | | | | | | requirement: 2 LPM with | | | | | | an oxygen saturation of | | | | | | 98 %.Heart rate: 67 | | | | | | beats per | | | | | | minuteRespiratory rate: | | | | | | 18 breaths per | | | | | | minuteTemperature: 37.6 | | | | | | ? C.Breathsounds:clear | | | | | | bilateral .Cough and | | | | | | sputum | | | | | | production:Patient had | | | | | | no cough at this time. | | | | | | Treatments GivenNo | | | | | | therapy indicated at | | | | | | this time. Respiratory | | | | | | Acuity and Protocol | | | | | | PlanA respiratory | | | | | | evaluation has been | | | | | | completed. Based on this | | | | | | assesmentinhaled | | | | | | medication will be | | | | | | delivered by RN, the | | | | | | protocol will | | | | | | bediscontinued. | | | | | | Electronically Signed | | | | | | by: Calin Abad RCP | | | | + + + + + + + + | Specimen | + + | | + + + + + + + | Performing | Address | City/State/Zipcode | Phone Number | | Organization | | | | + + + + + | [facility] | [address] | [place], [place] | | | THERAPY | [address] | [address] | | + + + + + NOTIFICATION (12/27/2009 8:22 PM PST) + + + + + + | Component | Value | Ref Range | Performed | Pathologist | | | | | At | Signature | + + + + + + | TEST NAME | Blood culture | | [facility] | | | | | | DEPARTMENT | | | | | | OF | | | | | | PATHOLOGY | | + + + + + + | SOURCE | Right AC | | [facility] | | | | | | DEPARTMENT | | | | | | OF | | | | | | PATHOLOGY | | + + + + + + | RESULT | Gram positive coci in | | [facility] | | | CALLED | chains in both bottles. | | DEPARTMENT | | | | Readback done. | | OF | | | | | | PATHOLOGY | | + + + + + + | CALLED TO | Namrata on 11K at 1557 | | [facility] | | | | 12/28/09 | | DEPARTMENT | | | | | | OF | | | | | | PATHOLOGY | | + + + + + + + + | Specimen | + + | | + + + + + + + | Performing | Address | City/State/Zipcode | Phone Number | | Organization | | | | + + + + + | [facility] DEPARTMENT OF | [address] | [place] [address] | | | PATHOLOGY | [address] | | | + + + + + CK, PLASMA (12/27/2009 8:22 PM PST) + +-------+ + + + | Component | Value | Ref Range | Performed | Pathologist | | | | | At | Signature | + +-------+ + + + | CK | 150 | 38 - 234 U/L | [facility] | | | | [...] | + + + + + | [facility] DEPARTMENT OF | [address] | [place] [address] | | | PATHOLOGY | [address] | | | + + + + + DIFFERENTIAL (12/27/2009 8:22 PM PST) + + + + + + | Component | Value | Ref Range | Performed | Pathologist | | | | | At | Signature | + + + + + + | NEUTROPHIL | 83 (H) | 50 - 70 % | [facility] | | | % | | | DEPARTMENT | | | | | | OF | | | | | | PATHOLOGY | | + + + + + + | LYMPHOCYTE | 8 (L) | 18 - 42 % | [facility] | | | % | | | DEPARTMENT | | | | | | OF | | | | | | PATHOLOGY | | + + + + + + | MONOCYTE % | 8 | 2 - 8 % | [facility] | | | | | | DEPARTMENT | | | | | | OF | | | | | | PATHOLOGY | | + + + + + + | EOS % | 0 (L) | 1 - 3 % | [facility] | | | | | | DEPARTMENT | | | | | | OF | | | | | | PATHOLOGY | | + + + + + + | BASO % | 0 | <3 % | [facility] | | | | | | DEPARTMENT | | | | | | OF | | | | | | PATHOLOGY | | + + + + + + | NEUTROPHIL | 10.4 (H) | 1.8 - 7.7 K/cu | [facility] | | | # | | mm | DEPARTMENT | | | | | | OF | | | | | | PATHOLOGY | | + + + + + + | LYMPHOCYTE | 1.0 | 1.0 - 4.8 K/cu | [facility] | | | # | | mm | DEPARTMENT | | | | | | OF | | | | | | PATHOLOGY | | + + + + + + | MONOCYTE # | 1.0 (H) | <0.9 K/cu mm | [facility] | | | | | | DEPARTMENT | | | | | | OF | | | | | | PATHOLOGY | | + + + + + + | EOS # | 0.0 | <0.6 K/cu mm | [facility] | | | | | | DEPARTMENT | | | | | | OF | | | | | | PATHOLOGY | | + + + + + + | BASO # | 0.0 | <0.3 | [facility] | | | | | [...] | + + + + + | [facility] DEPARTMENT OF | [id number] | [place] [address] | | | PATHOLOGY | [address] | | | + + + + + TROPONIN I, PLASMA (12/27/2009 8:22 PM PST) + + + + + + | Component | Value | Ref Range | Performed | Pathologist | | | | | At | Signature | + + + + + + | TROPONIN I | 6.73 (H) | <0.50 ng/mL | [facility] | | | | | [...] | + + + + + | [facility] DEPARTMENT OF | [address] | [place] [address] | | | PATHOLOGY | [address] | | | + + + + + CBC ONLY (12/27/2009 8:22 PM PST) + + + + + + | Component | Value | Ref Range | Performed | Pathologist | | | | | At | Signature | + + + + + + | WHITE CELL | 12.5 (H) | 4.4 - 11.0 K/cu | [facility] | | | COUNT | | mm | DEPARTMENT | | | | | | OF | | | | | | PATHOLOGY | | + + + + + + | RED CELL | 3.47 (L) | 4.00 - 5.20 | [facility] | | | COUNT | | M/cu mm | DEPARTMENT | | | | | | OF | | | | | | PATHOLOGY | | + + + + + + | HEMOGLOBIN | 10.4 (L) | 12.0 - 16.0 | [facility] | | | | | g/dL | DEPARTMENT | | | | | | OF | | | | | | PATHOLOGY | | + + + + + + | HEMATOCRIT | 30.9 (L) | 36.0 - 46.0 % | [facility] | | | | | | DEPARTMENT | | | | | | OF | | | | | | PATHOLOGY | | + + + + + + | MCV | 89.1 | 80.0 - 96.0 fL | [facility] | | | | | | DEPARTMENT | | | | | | OF | | | | | | PATHOLOGY | | + + + + + + | MCHC | 33.7 | 33.4 - 35.5 | [facility] | | | | | g/dL | DEPARTMENT | | | | | | OF | | | | | | PATHOLOGY | | + + + + + + | RDW | 13.7 | 11.5 - 15.0 % | [facility] | | | | | | DEPARTMENT | | | | | | OF | | | | | | PATHOLOGY | | + + + + + + | PLATELET | 270 | 150 - 400 K/cu | [facility] [...] | + + + + + | [facility] DEPARTMENT OF | [address] | [place] [address] | | | PATHOLOGY | [address] | | | + + + + + BASIC METABOLIC SET (NA, K, CL, TCO2, BUN, CR, GLU, CA) (12/27/2009 8:22 PM PST) + +---------+ + + + | Component | Value | Ref Range | Performed | Pathologist | | | | | At | Signature | + +---------+ + + + | GLUCOSE, | 96 | 60 - 99 mg/dL | [facility] | | | PLASMA | | | DEPARTMENT | | | (LAB) | | | OF | | | | | | PATHOLOGY | | + +---------+ + + + | BUN, PLASMA | 15 | 6 - 20 mg/dL | [facility] | | | (LAB) | | | DEPARTMENT | | | | | | OF | | | | | | PATHOLOGY | | + +---------+ + + + | CREATININE | 0.82 | 0.60 - 1.10 | [facility] | | | PLASMA | | mg/dL | DEPARTMENT | | | (LAB) | | | OF | | | | | | PATHOLOGY | | + +---------+ + + + | SODIUM, | 135 | 134 - 143 | [facility] | | | PLASMA | | mmol/L | DEPARTMENT | | | (LAB) | | | OF | | | | | | PATHOLOGY | | + +---------+ + + + | POTASSIUM, | 4.2 | 3.4 - 5.0 | [facility] | | | PLASMA | | mmol/L | DEPARTMENT | | | (LAB) | | | OF | | | | | | PATHOLOGY | | + +---------+ + + + | CHLORIDE, | 104 | 97 - 108 mmol/L | [facility] | | | PLASMA | | | DEPARTMENT | | | (LAB) | | | OF | | | | | | PATHOLOGY | | + +---------+ + + + | TOTAL CO2, | 24 | 23 - 31 mmol/L | [facility] | | | PLASMA | | | DEPARTMENT | | | (LAB) | | | OF | | | | | | PATHOLOGY | | + +---------+ + + + | CALCIUM, | 8.5 (L) | 8.6 - 10.2 | [facility] | | | PLASMA | | mg/dL | DEPARTMENT | | | (LAB) | | | OF | | | | | | PATHOLOGY | | + +---------+ + + + | ANION GAP | 7 | 4 - 11 mmol/L | [facility] | | | | | | DEPARTMENT | | | | | | OF | | | | | | PATHOLOGY | | + +---------+ + + + + + | Specimen | + + | Blood - Blood | + + + + + + + | Performing | Address | City/State/Zipcode | Phone Number | | Organization | | | | + + + + + | [facility] | [address] | [place] [address] | | | PATHOLOGY | [address] | | | + + + + + CBC, WITH DIFFERENTIAL (12/27/2009 8:22 PM PST) + + + + + + | Component | Value | Ref Range | Performed | Pathologist | | | | | At | Signature | + + + + + + | WHITE CELL | 12.5 (H) | 4.4 - 11.0 K/cu | [facility] | | | COUNT | | mm | DEPARTMENT | | | | | | OF | | | | | | PATHOLOGY | | + + + + + + | RED CELL | 3.47 (L) | 4.00 - 5.20 | [facility] | | | COUNT | | M/cu mm | DEPARTMENT | | | | | | OF | | | | | | PATHOLOGY | | + + + + + + | HEMOGLOBIN | 10.4 (L) | 12.0 - 16.0 | [facility] | | | | | g/dL | DEPARTMENT | | | | | | OF | | | | | | PATHOLOGY | | + + + + + + | HEMATOCRIT | 30.9 (L) | 36.0 - 46.0 % | [facility] | | | | | | DEPARTMENT | | | | | | OF | | | | | | PATHOLOGY | | + + + + + + | MCV | 89.1 | 80.0 - 96.0 fL | [facility] | | | | | | DEPARTMENT | | | | | | OF | | | | | | PATHOLOGY | | + + + + + + | MCHC | 33.7 | 33.4 - 35.5 | [facility] | | | | | g/dL | DEPARTMENT | | | | | | OF | | | | | | PATHOLOGY | | + + + + + + | RDW | 13.7 | 11.5 - 15.0 % | [facility] | | | | | | DEPARTMENT | | | | | | OF | | | | | | PATHOLOGY | | + + + + + + | PLATELET | 270 | 150 - 400 K/cu | [facility] [...] | + + + + + | [facility] | [address] | [place] [address] | | | PATHOLOGY | [address] | | | + + + + + CULTURE, BLOOD BACTI & YEAST (12/27/2009 8:22 PM PST) + + + + + + | Component | Value | Ref Range | Performed | Pathologist | | | | | At | Signature | + + + + + + | SOURCE BODY | Right Antecubital | | [facility] | | | SITE | | | [facility] | | | | | | LAB-MICRO | | + + + + + + | CULTURE | Blood Culture | | [facility] | | | RESULT | | | [facility] | | | | Source................: | | LAB-MICRO | | | | Right Antecubital | | | | | | Gram Stain: Gram | | | | | | positive cocci in chains | | | | | | Enterococcus | | | | | | faecalis | | | | | | | | | | | | Final ID | | | | | | Presumptive | | | | | | Identification | | | | | | Refer to Blood Culture | | | | | | collected 12/27/09 at | | | | | | 21:10 for complete | | | | | | identification and | | | | | | susceptibility results. | | | | | | Growth in Aerobic | | | | | | Bottle Growth in | | | | | | Anaerobic Bottle | | | | | | Final Report | | | | + + + + + + + + | Specimen | + + | Blood | + + + + + + + | Performing | Address | City/State/Zipcode | Phone Number | | Organization | | | | + + + + + | [facility] | [address] | [place] [address] | | | LAB-MICRO | | | | + + + + + MAGNESIUM, PLASMA (12/27/2009 8:22 PM PST) + +-------+ + + + | Component | Value | Ref Range | Performed | Pathologist | | | | | At | Signature | + +-------+ + + + | MAGNESIUM,P | 1.9 | 1.8 - 2.5 mg/dL | [facility] | | | LASMA | | | DEPARTMENT | | | [...] | + + + + + | [facility] | [address] | [place] [address] | | | PATHOLOGY | [address] | | | + + + + + COMPLETE METABOLIC SET (NA,K,CL,CO2,BUN,CREAT,GLUC,CA,AST,ALT,BILI TOTAL,ALK PHOS,ALB,PROT TOTAL) (12/27/2009 8:22 PM PST) + +---------+ + + + | Component | Value | Ref Range | Performed | Pathologist | | | | | At | Signature | + +---------+ + + + | GLUCOSE, | 96 | 60 - 99 mg/dL | [facility] | | | PLASMA | | | DEPARTMENT | | | (LAB) | | | OF | | | | | | PATHOLOGY | | + +---------+ + + + | BUN, PLASMA | 15 | 6 - 20 mg/dL | [facility] | | | (LAB) | | | DEPARTMENT | | | | | | OF | | | | | | PATHOLOGY | | + +---------+ + + + | CREATININE | 0.82 | 0.60 - 1.10 | [facility] | | | PLASMA | | mg/dL | DEPARTMENT | | | (LAB) | | | OF | | | | | | PATHOLOGY | | + +---------+ + + + | TOTAL | 6.7 | 6.1 - 7.9 g/dL | [facility] | | | PROTEIN, | | | DEPARTMENT | | | PLASMA | | | OF | | | (LAB) | | | PATHOLOGY | | + +---------+ + + + | ALBUMIN, | 2.9 (L) | 3.5 - 4.7 g/dL | [facility] | | | PLASMA | | | DEPARTMENT | | | (LAB) | | | OF | | | | | | PATHOLOGY | | + +---------+ + + + | CALCIUM, | 8.5 (L) | 8.6 - 10.2 | [facility] | | | PLASMA | | mg/dL | DEPARTMENT | | | (LAB) | | | OF | | | | | | PATHOLOGY | | + +---------+ + + + | BILIRUBIN | 0.9 | 0.3 - 1.2 mg/dL | [facility] | | | TOTAL | | | DEPARTMENT | | | | | | OF | | | | | | PATHOLOGY | | + +---------+ + + + | ALK PHOS | 65 | 53 - 141 U/L | [facility] | | | | | | DEPARTMENT | | | | | | OF | | | | | | PATHOLOGY | | + +---------+ + + + | AST(SGOT) | 41 | 15 - 41 U/L | [facility] | | | | | | DEPARTMENT | | | | | | OF | | | | | | PATHOLOGY | | + +---------+ + + + | SODIUM, | 135 | 134 - 143 | [facility] | | | PLASMA | | mmol/L | DEPARTMENT | | | (LAB) | | | OF | | | | | | PATHOLOGY | | + +---------+ + + + | POTASSIUM, | 4.2 | 3.4 - 5.0 | [facility] | | | PLASMA | | mmol/L | DEPARTMENT | | | (LAB) | | | OF | | | | | | PATHOLOGY | | + +---------+ + + + | CHLORIDE, | 104 | 97 - 108 mmol/L | [facility] | | | PLASMA | | | DEPARTMENT | | | (LAB) | | | OF | | | | | | PATHOLOGY | | + +---------+ + + + | TOTAL CO2, | 24 | 23 - 31 mmol/L | [facility] | | | PLASMA | | | DEPARTMENT | | | (LAB) | | | OF | | | | | | PATHOLOGY | | + +---------+ + + + | ALT (SGPT) | 17 | 13 - 48 U/L | [facility] | | | | | | DEPARTMENT | | | | | | OF | | | | | | PATHOLOGY | | + +---------+ + + + | ANION GAP | 7 | 4 - 11 mmol/L | [facility] | | | | | | DEPARTMENT | | | | | | OF | | | | | | PATHOLOGY | | + +---------+ + + + | ANION | 9 | 4 - 11 mmol/L | [facility] | | | GAP(ALB | | | DEPARTMENT | | | CORRECTED) | | | OF | | | | | | PATHOLOGY | | + +---------+ + + + + + | Specimen | + + | Blood - Blood | + + + + + + + | Performing | Address | City/State/Zipcode | Phone Number | | Organization | | | | + + + + + | [facility] DEPARTMENT OF | [address] | [place] [address] | | | PATHOLOGY | [address] | | | + + + + + 12 LEAD ECG (12/27/2009 7:02 PM PST) + + + + + + | Component | Value | Ref Range | Performed | Pathologist | | | | | At | Signature | + + + + + + | VENTRICULAR | 69 | BPM | [facility] | | | RATE | | | OF | | | | | | CARDIOLOGY | | + + + + + + | ATRIAL RATE | 69 | BPM | [facility] | | | | | | OF | | | | | | CARDIOLOGY | | + + + + + + | P-R | 132 | ms | [facility] | | | INTERVAL | | | OF | | | | | | CARDIOLOGY | | + + + + + + | QRS | 82 | ms | [facility] | | | DURATION | | | OF | | | | | | CARDIOLOGY | | + + + + + + | QT | 398 | ms | [facility] | | | | | | OF | | | | | | CARDIOLOGY | | + + + + + + | QTC | 426 | ms | [facility] | | | | | | OF | | | | | | CARDIOLOGY | | + + + + + + | P AXIS | 28 | degrees | [facility] | | | | | | OF | | | | | | CARDIOLOGY | | + + + + + + | R AXIS | -17 | degrees | [facility] | | | | | | OF | | | | | | CARDIOLOGY | | + + + + + + | T AXIS | 195 | degrees | [facility] | | | | | | OF | | | | | | CARDIOLOGY | | + + + + + + | EKG | Sinus rhythm with | | [facility] | | | DIAGNOSIS | Possible Premature | | OF | | | | atrial complexes with | | CARDIOLOGY | | | | Aberrant conduction and | | | | | | Premature ventricular | | | | | | complexes or Fusion | | | | | | complexesST & T wave | | | | | | abnormality, consider | | | | | | inferior ischemiaST & T | | | | | | wave abnormality, | | | | | | consider anterolateral | | | | | | ischemiaAbnormal ECG"I | | | | | | have personally | | | | | | interpreted this report, | | | | | | either alone or with a | | | | | | trainee."Confirmed by | | | | | | MAHAD ATWOOD ([id number]) on | | | | | | 12/29/2009 8:41:20 AM | | | | + + + + + + + + | Specimen | + + | | + + + + + | Narrative | Performed At | + + + | Please click | [facility] | | on view image for the detailed interpretation from [employer] results. | CARDIOLOGY | + + + + + + + + | Performing | Address | City/State/Zipcode | Phone Number | | Organization | | | | + + + + + | [facility] | [address] | [place], [place] | | | CARDIOLOGY | [address] | [phone] | | + + + + + documented in this encounter Visit Diagnoses + + | Diagnosis | + + | Endocarditis, valve - Primary Endocarditis, valve unspecified, unspecified cause | + + | Endocarditis Endocarditis, valve unspecified, unspecified cause | + + | Endocarditis, valve unspecified, unspecified cause | + + | Mitral valve disorder 424.0 Mitral valve disorders | + + | Aortic valve disorder 424.1 Aortic valve disorders | + + documented in this encounter Administered Medications + +--------+ +--------+------+------+ | Medication Order | MAR | Action | Dose | Rate | Site | | | Action | Date | | | | + +--------+ +--------+------+------+ | acetaminophen (aka TYLENOL) | Given | 01/08/20 | 650 mg | | | | tablet 650 mg 650 mg, oral, | | 10 10:35 | | | | | EVERY 6 HOURS NEEDED, Starting | | AM PST | | | | | 12/31/09 at 2334, Until Tue | | | | | | | 01/07/10 at 1824, mild pain | | | | | | + +--------+ +--------+------+------+ +-------+ +--------+---+---+ | Given | 01/06/20 | 650 mg | | | | | 10 1:15 | | | | | | PM PST | | | | +-------+ +--------+---+---+ | Given | 01/06/20 | 650 mg | | | | | 10 7:18 | | | | | | AM PST | | | | +-------+ +--------+---+---+ +---+---+ | | | +---+---+ + +-------+ +---------+---+---+ | albuterol (aka PROVENTIL, | Given | 01/07/20 | 2 puffs | | | | VENTOLIN) 90 mcg/Actuation | | 10 5:26 | | | | | inhaler 2 Puff 2 puff, | | PM PST | | | | | inhalation, EVERY 4 HOURS | | | | | | | NEEDED, Starting Wed12/27/09 at | | | | | | | 2054, Until Wed01/07/10 at 1824, | | | | | | | dyspnea/SOB | | | | | | + +-------+ +---------+---+---+ +-------+ +---------+---+---+ | Given | 12/31/19 | 2 puffs | | | | | 10 8:11 | | | | | | PM PST | | | | +-------+ +---------+---+---+ | Given | 12/31/19 | 2 puffs | | | | | 10 3:51 | | | | | | PM PST | | | | +-------+ +---------+---+---+ +---+---+ | | | +---+---+ + +-------+ +---------+---+---+ | alprazolam (aka XANAX) tablet | Given | 01/02/20 | 0.25 mg | | | | 0.25 mg 0.25 mg, oral, ONCE, 1 | | 10 12:05 | | | | | dose, 12/31/09 at 2345 | | AM PST | | | | + +-------+ +---------+---+---+ +---+---+ | | | +---+---+ + +-------+ +-----+---+---+ | ampicillin IV (minibag+) 2 g 2 | Given | 01/08/20 | 2 g | | | | g, intravenous, EVERY 4 HOURS, | | 10 8:34 | | | | | First dose on 12/28/09 at | | AM PST | | | | | 2000, Until Discontinued | | | | | | + +-------+ +-----+---+---+ +-------+ +-----+---+---+ | Given | 01/08/20 | 2 g | | | | | 10 3:48 | | | | | | AM PST | | | | +-------+ +-----+---+---+ | Given | 01/08/20 | 2 g | | | | | 10 12:15 | | | | | | AM PST | | | | +-------+ +-----+---+---+ +---+---+ | | | +---+---+ + +-------+ +--------+---+---+ | fentaNYL citrate (PF) (aka | Given | 12/30/19 | 75 mcg | | | | SUBLIMAZE) injection 25-200 mcg | | 10 11:30 | | | | | 25-200 mcg, intravenous, HSD PRN, | | AM PST | | | | | Starting 12/29/09 at 0946, | | | | | | | Until 12/30/09 at 0652, | | | | | | | moderate pain, sedation/analgesia | | | | | | + +-------+ +--------+---+---+ +---+---+ | | | +---+---+ + +-------+ + +---+---+ | fluticasone (aka FLONASE) 50 | Given | 01/08/20 | 2 sprays | | | | mcg/Actuation nasal spray 2 Bandy | | 10 8:34 | | | | | 2 spray, both nostrils, DAILY, | | AM PST | | | | | First dose on 12/28/09 at | | | | | | | 0900, Until Discontinued | | | | | | + +-------+ + +---+---+ +-------+ + +---+---+ | Given | 01/07/20 | 2 sprays | | | | | 10 9:36 | | | | | | AM PST | | | | +-------+ + +---+---+ | Given | 01/06/20 | 2 sprays | | | | | 10 8:43 | | | | | | AM PST | | | | +-------+ + +---+---+ +---+---+ | | | +---+---+ + +-------+ +--------+---+---+ | fluticasone-salmeterol (aka | Given | 01/08/20 | 1 puff | | | | ADVAIR) 250-50 mcg/dose inhaler 1 | | 10 8:34 | | | | | Puff 1 puff, inhalation, TWICE | | AM PST | | | | | DAILY, First dose on Wed12/27/09 | | | | | | | at 2100, Until Discontinued | | | | | | + +-------+ +--------+---+---+ +-------+ +--------+---+---+ | Given | 01/07/20 | 1 puff | | | | | 10 8:29 | | | | | | PM PST | | | | +-------+ +--------+---+---+ | Given | 01/07/20 | 1 puff | | | | | 10 9:36 | | | | | | AM PST | | | | +-------+ +--------+---+---+ +---+---+ | | | +---+---+ + +-------+ +-------+---+---+ | gentamicin (aka GARAMYCIN) IV | Given | 01/05/20 | 50 mg | | | | 50 mg 50 mg, intravenous, EVERY | | 10 2:30 | | | | | 8 HOURS, First dose (after last | | PM PST | | | | | reorder) on [facility] 01/02/10 at 1400, | | | | | | | Until Discontinued | | | | | | + +-------+ +-------+---+---+ +-------+ +-------+---+---+ | Given | 01/05/20 | 50 mg | | | | | 10 6:27 | | | | | | AM PST | | | | +-------+ +-------+---+---+ | Given | 01/04/20 | 50 mg | | | | | 10 9:39 | | | | | | PM PST | | | | +-------+ +-------+---+---+ +---+---+ | | | +---+---+ + +-------+ +-------+---+---+ | gentamicin (aka GARAMYCIN) IV | Given | 01/08/20 | 50 mg | | | | 50 mg 50 mg, intravenous, EVERY | | 10 2:33 | | | | | 12 HOURS, First dose (after last | | AM PST | | | | | modification) on [facility] 01/05/10 at | | | | | | | 0230, Until Discontinued | | | | | | + +-------+ +-------+---+---+ +-------+ +-------+---+---+ | Given | 01/07/20 | 50 mg | | | | | 10 2:29 | | | | | | PM PST | | | | +-------+ +-------+---+---+ | Given | 01/07/20 | 50 mg | | | | | 10 3:11 | | | | | | AM PST | | | | +-------+ +-------+---+---+ +---+---+ | | | +---+---+ + +-------+ +-------+---+---+ | gentamicin (aka GARAMYCIN) IV | Given | 01/03/20 | 60 mg | | | | 60 mg 60 mg, intravenous, EVERY | | 10 6:00 | | | | | 8 HOURS, First dose on Fri | | AM PST | | | | | 12/27/09 at 2230, Until | | | | | | | Discontinued | | | | | | + +-------+ +-------+---+---+ +-------+ +-------+---+---+ | Given | 01/02/20 | 60 mg | | | | | 10 10:15 | | | | | | PM PST | | | | +-------+ +-------+---+---+ | Given | 01/02/20 | 60 mg | | | | | 10 2:10 | | | | | | PM PST | | | | +-------+ +-------+---+---+ +---+---+ | | | +---+---+ + +-------+ +--------+---+---+ | heparin bolus from continuous | Given | 12/30/19 | 2,000 | | | | infusion (protocol) 2,000 Units | | 10 12:13 | Units | | | | intravenous, ONCE, 1 dose, Sun | | PM PST | | | | | 12/29/09 at 0845 | | | | | | + +-------+ +--------+---+---+ +---+---+ | | | +---+---+ + +---------+ + +-------+---+ | heparin in D5W 100 units/mL IV | New Bag | 12/30/19 | 750 | 7.5 | | | infusion 1-2,000 Units/hr | | 10 12:02 | Units/hr | mL/hr | | | (rounded to 0.01-20 mL/hr), | | PM PST | | | | | intravenous, CONTINUOUS, Starting | | | | | | | [facility] 12/29/09 at 1115, Until Sun | | | | | | | 12/29/09 at 1225 | | | | | | + +---------+ + +-------+---+ +---+---+ | | | +---+---+ + +---------+ + +-------+---+ | heparin in D5W 100 units/mL IV | New Bag | 01/08/20 | 650 | 6.5 | | | infusion 1-2,000 Units/hr | | 10 12:23 | Units/hr | mL/hr | | | (rounded to 0.01-20 mL/hr), | | AM PST | | | | | intravenous, CONTINUOUS, Starting | | | | | | | [place] 12/29/09 at 1230, Until Tue | | | | | | | 01/07/10 at 0734 | | | | | | + +---------+ + +-------+---+ + + + +-------+---+ | New Bag | 01/06/20 | 650 | 6.5 | | | | 10 2:56 | Units/hr | mL/hr | | | | PM PST | | | | + + + +-------+---+ | Rate/Dose Verify | 01/05/20 | 650 | 6.5 | | | | 10 7:19 | Units/hr | mL/hr | | | | AM PST | | | | + + + +-------+---+ +---+---+ | | | +---+---+ + +-------+ +--------+---+---+ | levothyroxine tablet 75 mcg 75 | Given | 01/08/20 | 75 mcg | | | | mcg, oral, DAILY, First dose on | | 10 8:34 | | | | | 12/28/09 at 0900, Until | | AM PST | | | | | Discontinued | | | | | | + +-------+ +--------+---+---+ +-------+ +--------+---+---+ | Given | 01/07/20 | 75 mcg | | | | | 10 10:38 | | | | | | AM PST | | | | +-------+ +--------+---+---+ | Given | 01/06/20 | 75 mcg | | | | | 10 11:00 | | | | | | AM PST | | | | +-------+ +--------+---+---+ +---+---+ | | | +---+---+ + +-------+ +------+---+---+ | lisinopril (aka PRINIVIL) | Given | 01/08/20 | 5 mg | | | | tablet 5 mg 5 mg, oral, DAILY, | | 10 8:34 | | | | | First dose on 12/28/09 at | | AM PST | | | | | 0900, Until Discontinued | | | | | | + +-------+ +------+---+---+ +-------+ +------+---+---+ | Given | 01/07/20 | 5 mg | | | | | 10 9:36 | | | | | | AM PST | | | | +-------+ +------+---+---+ | Given | 01/05/20 | 5 mg | | | | | 10 11:58 | | | | | | AM PST | | | | +-------+ +------+---+---+ +---+---+ | | | +---+---+ + +-------+ +---------+---+---+ | meclizine (aka ANTIVERT) tablet | Given | 01/08/20 | 12.5 mg | | | | 12.5 mg 12.5 mg, oral, TWICE | | 10 8:34 | | | | | DAILY, First dose on Wed12/27/09 | | AM PST | | | | | at 2200, Until Discontinued | | | | | | + +-------+ +---------+---+---+ +-------+ +---------+---+---+ | Given | 01/07/20 | 12.5 mg | | | | | 10 8:29 | | | | | | PM PST | | | | +-------+ +---------+---+---+ | Given | 01/07/20 | 12.5 mg | | | | | 10 9:36 | | | | | | AM PST | | | | +-------+ +---------+---+---+ +---+---+ | | | +---+---+ + +-------+ +---------+---+---+ | menthol-cetylpyridinium (aka | Given | 12/29/19 | 1 | | | | CEPACOL) 1 Lozenge 1 lozenge, | | 10 8:00 | lozenge | | | | oral, EVERY 2 HOURS NEEDED, | | PM PST | | | | | Starting 12/28/09 at 1846, | | | | | | | Until 01/07/10 at 1824, sore | | | | | | | throat | | | | | | + +-------+ +---------+---+---+ +---+---+ | | | +---+---+ + +-------+ +------+---+---+ | midazolam (aka VERSED) | Given | 12/30/19 | 3 mg | | | | injection 1-10 mg 1-10 mg, | | 10 11:30 | | | | | intravenous, HSD PRN, Starting | | AM PST | | | | | 12/29/09 at 0946, Until Mon | | | | | | | 12/30/09 at 0652, sedation | | | | | | + +-------+ +------+---+---+ +---+---+ | | | +---+---+ + +-------+ +--------+---+---+ | potassium chloride SR (aka | Given | 01/02/20 | 20 mEq | | | | K-DUR) tablet 20 mEq 20 mEq, | | 10 9:37 | | | | | oral, ONCE, 1 dose, 01/01/10 | | AM PST | | | | | at 0715 | | | | | | + +-------+ +--------+---+---+ +---+---+ | | | +---+---+ + +-------+ +--------+---+---+ | rifamPIN (aka RIFADIN) IV 300 | Given | 12/29/19 | 300 mg | | | | mg 300 mg, intravenous, EVERY 12 | | 10 11:15 | | | | | HOURS, First dose on Fri | | PM PST | | | | | 12/27/09 at 2300, Until | | | | | | | Discontinued | | | | | | + +-------+ +--------+---+---+ +-------+ +--------+---+---+ | Given | 12/29/19 | 300 mg | | | | | 10 11:25 | | | | | | AM PST | | | | +-------+ +--------+---+---+ | Given | 12/29/19 | 300 mg | | | | | 10 12:25 | | | | | | AM PST | | | | +-------+ +--------+---+---+ +---+---+ | | | +---+---+ + +-------+ +--------+---+---+ | salsalate (aka DISALCID) tablet | Given | 01/06/20 | 500 mg | | | | 500 mg 500 mg, oral, DAILY | | 10 8:51 | | | | | NEEDED, Starting Wed12/31/09 at | | AM PST | | | | | 1341, Until Wed01/07/10 at 1824, | | | | | | | mild pain, moderate pain, | | | | | | | arthritic pain | | | | | | + +-------+ +--------+---+---+ +-------+ +--------+---+---+ | Given | 01/04/20 | 500 mg | | | | | 10 6:33 | | | | | | PM PST | | | | +-------+ +--------+---+---+ | Given | 01/03/20 | 500 mg | | | | | 10 1:31 | | | | | | PM PST | | | | +-------+ +--------+---+---+ +---+---+ | | | +---+---+ + +-------+ + +---+---+ | senna-docusate (aka SENOKOT S) | Given | 01/07/20 | 1 tablet | | | | 8.6-50 mg 1 Tab 1 tablet, oral, | | 10 8:29 | | | | | TWICE DAILY, First dose on Wed | | PM PST | | | | | 12/27/09 at 2100, Until | | | | | | | Discontinued | | | | | | + +-------+ + +---+---+ +-------+ + +---+---+ | Given | 01/06/20 | 1 tablet | | | | | 10 8:07 | | | | | | PM PST | | | | +-------+ + +---+---+ | Given | 01/05/20 | 1 tablet | | | | | 10 9:10 | | | | | | PM PST | | | | +-------+ + +---+---+ +---+---+ | | | +---+---+ + +-------+ +-------+---+---+ | sertraline (aka ZOLOFT) tablet | Given | 01/08/20 | 25 mg | | | | 25 mg 25 mg, oral, DAILY, First | | 10 8:34 | | | | | dose on 12/28/09 at 0900, | | AM PST | | | | | Until Discontinued | | | | | | + +-------+ +-------+---+---+ +-------+ +-------+---+---+ | Given | 01/07/20 | 25 mg | | | | | 10 9:36 | | | | | | AM PST | | | | +-------+ +-------+---+---+ | Given | 01/06/20 | 25 mg | | | | | 10 8:51 | | | | | | AM PST | | | | +-------+ +-------+---+---+ +---+---+ | | | +---+---+ + +-------+ +-----+---+---+ | vancomycin (aka VANCOCIN) IV 1 | Given | 12/30/19 | 1 g | | | | g 1 g, intravenous, EVERY 12 | | 10 10:28 | | | | | HOURS, First dose on Wed12/27/09 | | PM PST | | | | | at 2230, Until Discontinued | | | | | | + +-------+ +-----+---+---+ +-------+ +-----+---+---+ | Given | 12/30/19 | 1 g | | | | | 10 12:02 | | | | | | PM PST | | | | +-------+ +-----+---+---+ | Given | 12/29/19 | 1 g | | | | | 10 10:51 | | | | | | PM PST | | | | +-------+ +-----+---+---+ +---+---+ | | | +---+---+ + +-------+ +-------+---+---+ | warfarin (aka COUMADIN) tablet | Given | 01/01/20 | 10 mg | | | | 10 mg 10 mg, oral, EVERY | | 10 10:19 | | | | | EVENING, First dose (after last | | PM PST | | | | | modification) on 12/30/09 at | | | | | | | 2100, Until Discontinued | | | | | | + +-------+ +-------+---+---+ +-------+ +-------+---+---+ | Given | 12/31/19 | 10 mg | | | | | 10 9:57 | | | | | | PM PST | | | | +-------+ +-------+---+---+ +---+---+ | | | +---+---+ + +-------+ +-------+---+---+ | warfarin (aka COUMADIN) tablet | Given | 01/06/20 | 10 mg | | | | 10 mg 10 mg, oral, EVERY | | 10 8:07 | | | | | EVENING, 1 dose, First dose | | PM PST | | | | | (after last reorder) on Sun | | | | | | | 01/05/10 at 2100 | | | | | | + +-------+ +-------+---+---+ +---+---+ | | | +---+---+ + +-------+ +-------+---+---+ | warfarin (aka COUMADIN) tablet | Given | 01/07/20 | 10 mg | | | | 10 mg 10 mg, oral, EVERY | | 10 8:29 | | | | | EVENING, First dose (after last | | PM PST | | | | | modification) on 01/06/10 at | | | | | | | 2100, Until Discontinued | | | | | | + +-------+ +-------+---+---+ +---+---+ | | | +---+---+ + +-------+ +------+---+---+ | warfarin (aka COUMADIN) tablet | Given | 12/30/19 | 5 mg | | | | 5 mg 5 mg, oral, EVERY EVENING, | | 10 2:12 | | | | | First dose on 12/29/09 at | | PM PST | | | | | 1215, Until Discontinued | | | | | | + +-------+ +------+---+---+ +---+---+ | | | +---+---+ + +-------+ +------+---+---+ | warfarin (aka COUMADIN) tablet | Given | 01/04/20 | 5 mg | | | | 5 mg 5 mg, oral, EVERY EVENING, | | 10 8:48 | | | | | First dose (after last | | PM PST | | | | | modification) on Wed01/01/10 at | | | | | | | 2100, Until Discontinued | | | | | | + +-------+ +------+---+---+ +-------+ +------+---+---+ | Given | 01/03/20 | 5 mg | | | | | 10 9:25 | | | | | | PM PST | | | | +-------+ +------+---+---+ | Given | 01/02/20 | 5 mg | | | | | 10 10:15 | | | | | | PM PST | | | | +-------+ +------+---+---+ +---+---+ | | | +---+---+ + +-------+ +--------+---+---+ | warfarin (aka COUMADIN) tablet | Given | 01/05/20 | 7.5 mg | | | | 7.5 mg 7.5 mg, oral, EVERY | | 10 9:10 | | | | | EVENING, 1 dose, First dose | | PM PST | | | | | (after last reorder) on Sat | | | | | | | 01/04/10 at 2100 | | | | | | + +-------+ +--------+---+---+ +---+---+ | | | +---+---+ documented in this encounter
--- OUTSIDE RECORDS SUMMARY | ~2019-09-03 | XMS | Encounter Summary ---
Demographics + + + | Address | [address] | | | [place] [address] | + + + | Home Phone | | + + + | Preferred Language | Unknown | + + + | Marital Status | Single | + + + | Hoahaoism Affiliation | 1064 | + + + | Race | Unknown | + + + | Ethnic Group | Unknown | + + + Author + + + | Author | [facility] | | | and [place] | + + + | Organization | [facility] | | | and [place] [...] Providers + +------+ + | Care Senior Account Executive Name | Role | Phone | + +------+ + | Ramesh You DO | PCP | | + +------+ + Reason for Visit + + + | Reason | Comments | + + + | New Patient | AVR | + + + | Device Check | | | (In-office) | | + + + Evaluate & Treat (Routine) +--------+--------+ + + + + | Status | Reason | Specialty | Diagnoses / | Referred By | Referred To | | | | | Procedures | Contact | Contact | +--------+--------+ + + + + | Closed | | Cardiology | Diagnoses | Avelino, | [facility] | | | | | Pacemaker | Ramesh | Cardiology | | | | | ESTABLISH | Baldemar DO 56 | [address] | | | | | CARDIO CARE | [address] | [place], | | | | | Procedures | [place] | [place] | | | | | DENTAL EQUIPMENT TECHNICIAN - NEEDS | [place] | [address] | | | | | IC/THR APPT | [address] | Phone: | | | | | | Phone: | [phone] | | | | | | [phone] | Fax: | | | | | | Fax: | [phone] | | | | | | [phone] | | +--------+--------+ + + + + Encounter Details +--------+---------+ + + + | Date | Type | Department | Care Team | Description | +--------+---------+ + + + | 07/14/ | Office | [facility] | OlegarioradhadonavanGodwin, | Pacemaker | | 2019 | Visit | CARDIOLOGY [address] | reprogramming/check | | | | [place], | [place], | (Primary Dx); | | | | [place] [address] | [place] [address] | Coronary artery | | | | [phone] | [phone] | disease, angina | | | | | | presence | | | | | | unspecified, | | | | | | unspecified vessel | | | | | | or lesion type, | | | | | | unspecified whether | | | | | | [place] or | | | | | | transplanted heart; | | | | | | Pacemaker, Dual | | | | | | Chamber Medtronic | | | | | | 06/24/2015 Dr. Aden | | | | | | Marco Antonionger ; | | | | | | Tachycardia-bradycar | | | | | | kimberlee syndrome (HCC) | +--------+---------+ + + + Social History [...] + + + | Blood Pressure | 140/68 | 07/14/2018 2:15 PM | | | | | PDT | | + + + + + | Pulse | 61 | 07/14/2018 2:15 PM | | | | | PDT | | + + + + + | Temperature | - | - | | + + + + + | Respiratory Rate | 16 | 07/14/2018 2:15 PM | | | | | PDT | | + + + + + | Oxygen Saturation | - | - | | + + + + + | Inhaled Oxygen | - | - | | | Concentration | | | | + + + + + | Weight | 53.8 kg (118 lb 9.7 | 07/14/2018 2:15 PM | | | | oz) | PDT | | + + + + + | Height | 165.1 cm (5' 5") | 07/14/2018 2:15 PM | | | | | PDT | | + + + + + | Body Mass Index | 19.74 | 07/14/2018 2:15 PM | | | | | PDT | | + + + + + documented in this encounter Progress Notes Godwin Elmore MD - 07/14/2018 1:30 PM PDTFormatting of this note might be different f rom the original. PATIENT NAME: Maria Alejandra Schaeffer : 1940: AGE: 77 y.o. REFERRED BY: Ramesh You PRIMARY CARE: Chinmay You DO NEW PATIENT OFFICE VISIT Date of Service: 07/14/18 HISTORY OF PRESENT ILLNESS: Maria Alejandra Schaeffer is a 77 y.o. female with a history of valvular heart disease, tachycardia-Br adycardia syndrome, essential hypertension, mixed hyperlipidemia, hypothyroidism and stage I II chronic kidney disease. She is being seen today for device interrogation and valvular he art disease. Patient recently removed to [place], [place], from [place]. She had history for pacemaker implantation on 02/08/15. Patient also has history of aortic valve replacement. Today, patient is feeling good. She has occasional heart racing at nighttime. Patient is physically active by walking but does not have an exercise regimen. There is no chest pain or chest discomfort both at rest and on exertion. Patient denies breathlessness. There is no dizziness or lightheadedness. There is no ankle or leg swelling. Patient can sleep on one pillow at night without difficulty breathing. CURRENT PROBLEMS Patient Active Problem List Diagnosis Pacemaker reprogramming/check Pacemaker, Dual Chamber Medtronic 06/24/2015 Dr. Markie Mathur Tachycardia-bradycardia syndrome Essential hypertension, benign Hyperlipidemia Hypothyroidism S/P AVR (aortic valve replacement) CAD (coronary artery disease) MEDICAL, SURGICAL, AND PERSONAL HISTORY Past Surgical History: Procedure Laterality Date CARDIAC PACEMAKER PLACEMENT Family History Problem Relation Age of Onset [...] as needed. ALPRAZolam (XANAX) 0.5 mg tablet ezetimibe (ZETIA) 10 mg tablet Take 10 [...] (See Comments) Adhesive & Tape Rash ROS Review of Systems Constitutional: Positive for weight loss. Negative for chills, diaphoresis, fever and malai se/fatigue. HENT: Negative for congestion, hearing loss, nosebleeds and tinnitus. Dental Problems = No Eyes: Negative for blurred vision and double vision. Respiratory: Positive for shortness of breath. Cardiovascular: Positive for palpitations. Negative for chest pain and leg swelling. Gastrointestinal: Negative for blood in stool, constipation, diarrhea, nausea and vomiting. Genitourinary: Negative for dysuria, frequency, hematuria and urgency. Musculoskeletal: Negative for back pain, falls, joint pain, myalgias and neck pain. Gait Problems = No Skin: Negative for itching and rash. Neurological: Positive for headaches. Negative for dizziness, tingling, tremors, speech bhargavi nge, seizures, loss of consciousness and weakness. Lightheaded = No Endo/Heme/Allergies: Bruises/bleeds easily. Psychiatric/Behavioral: Negative for memory loss. The patient is nervous/anxious. The patie nt does not have insomnia. OBJECTIVE: PHYSICAL EXAM BP 140/68 | Pulse 61 | Resp 16 | Ht 1.651 m (5' 5") | Wt 53.8 kg (118 lb 9.7 oz) | BMI 19.74 kg/m Physical Exam Constitutional: She appears well-developed and well-nourished. No distress. Female individual, with no acute distress. Neck: Normal carotid pulses, no hepatojugular reflux and no JVD present. Carotid bruit is n ot present. Cardiovascular: Normal rate, regular rhythm, S1 normal, S2 normal, intact distal pulses and normal pulses. PMI is not displaced. Exam reveals no gallop, no S3, no S4 and no friction r ub. Murmur heard. Systolic murmur is present with a grade of 2/6 at the upper right sternal border. Ejection normal prosthetic heart sound Pulses: Carotid pulses are 2+ on the right side, and 2+ on the left side. Dorsalis pedis pulses are 2+ on the right side, and 2+ on the left side. Pulmonary/Chest: Effort normal and breath sounds normal. No accessory muscle usage. No resp iratory distress. She has no wheezes. She has no rhonchi. She has no rales. Abdominal: Normal appearance, normal aorta and bowel sounds are normal. She exhibits no abd ominal bruit. There is no hepatosplenomegaly. There is no tenderness. Musculoskeletal: She exhibits no edema. Neurological: She is alert. Gait normal. Skin: Skin is warm and dry. Psychiatric: She has a normal mood and affect. Her mood appears not anxious. She does not e xhibit a depressed mood. ECG: Atrial paced rhythm. Cannot rule out anterior infarct, age undetermined. ST & T wave abnormality, consider inferolateral ischemia. LAB RESULTS: LIPID Lab Results Component Value [...] PLTEX 146 07/06/2018 I reviewed records from Ramesh You DO for office visit on 06/30/18. Refer to cardio logist. ASSESSMENT: 1. Valvular heart disease A. Successful aortic valve replacement with [address] Theo aortic valve, mitral valve replacement with [address] Theo mitral valve on 12/10/94 at [facility] by Ihsan Carias M.D. B. Echocardiogram on 09/30/1999 shows normal left ventricular size and systolic function, m echanical valves in mitral and aortic position with normal forward velocities and no evidenc e of significant regurgitation. mild mitral regurgitation cannot be ruled out. At [facility] C. Echocardiogram on 10/18/2001 shows normal left ventricular size and systolic function, a ortic and mitral mechanical prosthesis with good hemodynamic function; disc motion is presen t. By Emanuel Morgan M.D. at [facility] D. Echocardiogram on 02/06/11 shows Left ventricular size and systolic function are normal , there is biatrial enlargement, there is a normal functioning mechanical mitral valve. Mitr al regurgitation is present, however its severity cannot be assessed due to shielding from t he prosthesis, there is a prosthetic aortic valve with mild aortic valve stenosis, there is no prior study for comparison. By Bandar Tucker MD at [facility]. E.Echocardiogram on 01/13/12 shows, the study was technically difficult with many images be ing suboptimal in quality, visualization is limited, but LV systolic function is grossly nor mal, left ventricular ejection fraction is 60% (+/- 5), borderline concentric left ventricul ar hypertrophy, there is a prosthetic mitral valve with normal function, there is a prosthet ic aortic valve with mild stenosis, compared to the prior echo report on 02/06/11, there is no significant change. By Bandar Tucker MD at [facility] F. Echocardiogram on 12/29/12 shows the cardiac rhythm showed frequent PVCs during the exa m, left ventricular systolic function is normal, the [...] no significant change. By Sonya faustin MD G. Echocardiogram on 03/13/14 shows, left ventricular systolic function is normal, the gradi ents for this prosthetic mitral valve are in the normal range, the gradients through the pro sthetic aortic valve are mildly increased for this type of valve suggesting mild stenosis, c ompared to the prior echo report on 12/29/12, there is no significant change. By Markie muñoz MD. H. Echocardiogram on 04/09/15 shows, left ventricular systolic function is normal, the gradi ents for this prosthetic mitral valve are in the normal range, the gradients through the pro sthetic aortic valve are mildly increased for this type of valve suggesting mild stenosis, c ompared to the prior echo report on 03/13/2014, there is no significant change. By Markie schwartz MD I. Echocardiogram on 08/14/16 shows, left ventricular systolic [...] (+/- 5). By Markie Mathur MD at [facility] J. Patient recently removed to [place], from [place]. She had history for pacem leroy implantation on 02/08/15. Patient also has history of aortic valve replacement. K. Today, patient is feeling good. Patient is physically active by walking but does not h ave an exercise regimen. There is no signs and symptoms of overt congestive heart failure. He is in a class I of [place] [employer] functional class.There is no fluid retenti on on physical examination. 2. Tachycardia-Bradycardia syndrome. A. Successful implantation of a loop recorder on 11/08/09 at [facility] B. Successful explanation of a implantable loop recorder on 01/01/10 at [facility] C. S/P Pacemaker implantation 02/08/2015 D. Pace maker interrogation reveals a normal stable functioning device. 3. Essential hypertension A. Blood pressure in office is within target. 4. Mixed hyperlipidemia A. Patient is on Zetia 10 mg daily. 5. Hypothyroidism A. She is on levothyroxine 75 mcg. 6. Stage III chronic kidney disease A. eGFR on 07/06/18 is 33. PLAN: 1. I spend time at length talking about natural course, treatment and prognosis of valvula r heart disease. 2. Today, patient is doing well from cardiac standpoint. I will continue with current medi raj regimen. 3. I recommend a therapeutic lifestyle change including walking 30 minutes a day, choosing healthy choices of diet , including DASH diet, weight reduction and 7 hours of high quality sleep a night. 4. Pace maker interrogation reveals a normal stable functioning device. 5 Follow up in 6 months with OC/thresh check. I, Regla Lilly, am acting as a scribe on behalf of, and in the presence of Godwin sims MD. I have reviewed and edited this note. Regla Lilly, Rehabilitation Therapist 07/14/2018 I, Godwin Elmore MD, personally performed the services described in this documentation, as scribed in my presence and it is both accurate and complete. Regla Lilly Rehabilitation Therapist 07/14/2018 14:17 Electronically signed by: Godwin Elmore MD [facility] 07/14/2018 Portions of this chart may have been created with [employer] voice recognition software. Occasi onal wrong-word or sound-alike substitutions may have occurred due to the inherent yañez itations of voice recognition software. Please read the chart carefully and recognize, using context, where these substitutions have occurred. documented in this encounter Procedure Notes Godwin Elmore MD - 07/14/2018 1:30 PM PDTAssociated Order(s): DEVICE INTERROGATIONPro cedure(s): DEVICE INTERROGATIONPre-Procedure Diagnose(s): Pacemaker reprogramming/check; Pac emaker; Tachycardia-bradycardia syndrome (HCC) PATIENT NAME: Maria Alejandra Schaeffer : 1940: AGE: 77 y.o. Pacemaker Evaluation Report July 14, 2018 Reason for evaluation: new patient Indication for [...] PDF for further details. Data collected by Keturah Pena RN Underlying rhythm: Sinus bradycardia <30-34 beats. 0 mode switch episodes accounting for <0.1% of the time. 2 ventricular high rate episodes. The longest occurred 02/24/2018 at 9:48 AM for 3 seconds. EGM is consistent with 20 beat run of nonsustained ventricular tachycardia rate 150-170 beat s. PVC singles 278.9/hr Decreased from 733.9/hr PVC runs 9.1/hr Decreased from 30.9/hr Histogram good. Battery longevity 6 years. Normal and stable device function. Patient having symptoms of heart racing daily that can last for 2 hours. Decreased atrial tachy detection rate from 171 to 158. Decreased max trac k and upper sensor rate from 130 to 120. Decreased VT detection from 150 to 130 to help det ect tachyarrhythmias at lower heart rates. Patient thinking about remote monitoring but prefers office checks at this time. Device interrogation due in office in 6 months. documented in this encounter Plan of Treatment Not on filedocumented as of this encounter Procedures + +--------+ + + + | Procedure Name | Priori | Date/Time | Associated Diagnosis | Comments | | | ty | | | | + +--------+ + + + | ECG 12 LEAD | Routin | 07/14/2018 | Coronary artery | Results for this | | | e | 2:04 PM | disease, angina | procedure are in the | | | | PDT | presence | results section. | | | | | unspecified, | | | | | | unspecified vessel | | | | | | or lesion type, | | | | | | unspecified whether | | | | | | [place] or | | | | | | transplanted heart | | + +--------+ + + + | DEVICE INTERROGATION | Routin | 07/14/2018 | Pacemaker | Results for this | [...] in this encounter Results ECG 12 lead (07/14/2018 2:04 PM PDT) + + + + + + | Component | Value | Ref Range | Performed | Pathologist | | | | | At | Signature | + + + + + + | VENTRICULAR | 61 | BPM | [facility] | | | RATE EKG | | | | | + + + + + + | ATRIAL RATE | 61 | BPM | [facility] | | + + + + + + | P-R | 204 | ms | [facility] | | | INTERVAL | | | | | + + + + + + | QRS | 78 | ms | [facility] | | | DURATION | | | | | + + + + + + | Q-T | 432 | ms | [facility] | | | INTERVAL | | | | | + + + + + + | Q-T | 434 | ms | [facility] | | | INTERVAL | | | | | | (CORRECTED) | | | | | + + + + + + | QRS AXIS | 59 | degrees | [facility] | | + + + + + + | T AXIS | -71 | degrees | [facility] | | + + + + + + | INTERPRETAT | Atrial-paced | | [facility] | | | ION TEXT | rhythmCannot rule out | | | | | | Anterior infarct , age | | | | | | undeterminedST & T wave | | | | | | abnormality, consider | | | | | | inferolateral | | | | | | ischemiaAbnormal ECGNo | | | | | | previous ECGs | | | | | | availableConfirmed by | | | | | | GODWIN ELMORE MD | | | | | | ([id number]) on 07/14/2018 | | | | | | 4:05:35 PM | | | | + + [...] | + +---------+ + + Device Interrogation (07/14/2018 1:30 PM PDT) + + + | Narrative | Performed At | + + + | Godwin | [facility]VAL[facility] | | MD Ramírez 07/14/2018 15:02 PATIENT NAME: Maria Alejandra Schaeffer | | | : 1940: AGE: 77 y.o.Pacemaker Evaluation Report | | | July 14, 2018 Reason for evaluation: new patientIndication for | [...] further details.Data | | | collected by Keturah Pena RN Underlying rhythm: Sinus | | | bradycardia <30-34 beats. 0 mode switch episodes accounting for <0.1% | | | of the time. 2 ventricular high rate episodes. The longest occurred | | | 02/24/2018 at 9:48 AM for 3 seconds. EGM is consistent with 20 beat run | | | of nonsustained ventricular tachycardia rate 150-170 beats.PVC | | | singles 278.9/hr Decreased from 733.9/hr PVC runs | | | 9.1/hr Decreased from 30.9/hr Histogram good. Battery | | | longevity 6 years.Normal and stable device function. Patient having | | | symptoms of heart racing daily that can last for 2 hours. Decreased | | | atrial tachy detection rate from 171 to 158. Decreased max track and | | | upper sensor rate from 130 to 120. Decreased VT detection from 150 | | | to 130 to help detect tachyarrhythmias at lower heart rates. Patient | | | thinking about remote monitoring but prefers office checks at this | | | time. Device interrogation due in office in 6 months. | | |0 mode switch episodes accounting for <0.1% of the time. | | |2 ventricular high rate episodes. The longest occurred 02/24/2018 | | |at 9:48 AM for 3 seconds. EGM is consistent with 20 beat run of | | |nonsustained ventricular tachycardia rate 150-170 beats. | | |PVC singles 278.9/hr Decreased from 733.9/hr | | |PVC runs 9.1/hr Decreased from 30.9/hr | | |Histogram good. Battery longevity 6 years. | | |Normal and stable device function. Patient having symptoms of | | |heart racing daily that can last for 2 hours. Decreased atrial | | |tachy detection rate from 171 to 158. Decreased max track and | | |upper sensor rate from 130 to 120. Decreased VT detection from | | |150 to 130 to help detect tachyarrhythmias at lower heart rates. | | |Patient thinking about remote monitoring but prefers office | | |checks at this time. | | |Device interrogation due in office in 6 months. | | | | | | | | + + + + +---------+ + + | Performing | Address | City/State/[place] [facility] | Phone Number | | Organization | | | | + +---------+ + + | [facility] | | | | + +---------+ + + documented in this encounter Visit Diagnoses + + | Diagnosis | + + | Pacemaker reprogramming/check - Primary Fitting and adjustment of cardiac pacemaker | + + | Coronary artery disease, angina presence unspecified, unspecified vessel or lesion | | type, unspecified whether [place] or transplanted heart | + + | Pacemaker, Dual Chamber Medtronic 06/24/2015 Dr. Markie Mathur Cardiac pacemaker in | | situ | + + | Tachycardia-bradycardia syndrome (HCC) Sinoatrial node dysfunction | + + documented in this encounter
--- OUTSIDE RECORDS SUMMARY | ~2019-09-03 | XMS | Encounter Summary ---
Demographics + + + | Address | [address] | | | [place] [address] | + + + | Home Phone [...] | | | | | [place] [address] | | + + + + + | Dariana Dowling | ECON | Unknown | | + + + + + Care Team Providers + +------+ + | Care Electrical Products Sales Engineer Name | Role | Phone | + +------+ + PCP | Unavailable | + +------+ + Encounter Details +--------+ + + + + | Date | Type | Department | Care Team | Description | +--------+ + + + + | 12/15/ | Results | | Other, Faculty | | | 2004 | Only | | [phone] | | +--------+ + + + + [...] | | + +------+--------+ + + | TTE 2D ECHO | ECG | Routin | | 12/15/2004 10:44 AM | | | | e | | PST | + +------+--------+ + + | TTE 2D ECHO-ADULT | ECG | Routin | | 11/03/2005 4:15 PM | | | | e | | PDT | + +------+--------+ + + | TTE 2D ECHO-ADULT | ECG | Routin | | 11/13/2005 8:54 AM | | | | e | | PDT | + +------+--------+ + + | TTE 2D ECHO-ADULT | ECG | Routin | | 11/24/2005 9:56 AM | | | | e | | PDT | + +------+--------+ + + documented as of this encounter Visit Diagnoses Not on filedocumented in this encounter"
--- OUTSIDE RECORDS SUMMARY | ~2019-09-03 | XMS | Encounter Summary ---
Demographics + + + | Address | [address] | | | [place] [address] | + + + | Home Phone | | + + + | Preferred Language | Unknown | + + + | Marital Status | Single | + + + | Jainism Affiliation | 1064 | + + + | Race | Unknown | + + + | Ethnic Group | Unknown | + + + Author + + + | Author | [facility] | | | and [place] | + + + | Organization | [facility] | | | and [place] [...] Team Providers + +------+ + | Care Latex Foam Worker Name | Role | Phone | + [...] | CARDIOLOGY [address] | [address] | unspecified type; | | | | [place], | [place] [address] | Coronary artery | | | | [place] [address] | [place] [address] | disease, angina | | | | [phone] | | presence | | | | | | unspecified, | | | | | | unspecified vessel | | | | | | or lesion type, | | | | | | unspecified whether | | | | | | [place] or | | | | | | [...] or lesion | | type, unspecified whether [place] or transplanted heart | + + documented in this encounter
--- OUTSIDE RECORDS SUMMARY | ~2019-09-03 | XMS | Encounter Summary ---
Demographics + + + | Address | [address] | | | [place] [address] | + + + | Home Phone [...] Josue Schaeffer | ECON | [address] | | | | | [place] [address] | | + + + + + | Dariana Dowling | ECON | Unknown | | + + + + + Care Team Providers + +------+ + | Care Moss Bleacher Name | Role | Phone | + [...] | | Mitral | MD Emanuel | [facility] [address] | | | | | valve | [address] | | | | | disorders[address] | [facility] | | | | | 4.0) Aortic | [place], [place] | Health and | | | | | valve | [address] | Healing, | | | | | disorders | | [address] | | | | | Procedures | | [place], [place] | | | | | TRANSTHORACI | | [address] | | | | | C | | Phone: | | | | | ECHOCARDIOGR | | [phone] | | | | | AM, ADULT | | | +--------+--------+ + + + + Encounter Details +--------+ + + + + | Date | Type | Department | Care Team | Description | +--------+ + + + + | 05/21/ | Hospital | Cardiac | | | | 2010 | Encounter | Non-Invasive Testing | | | | | | at [facility] [address] | | | | | | [address] [facility] | | | | [facility], | | | | | | [address] | | | | | | [place], [place] | | | | | | [address] | | | | | | [phone] | | | +--------+ + + + [...] daily. | | | | | | [place], Suspension | | | | | | [...] | | 10 | | | Aerosol, [place] | needed. | | | | | [...] + documented as of this encounter Progress Adri Pantoja - 05/21/2010 1:23 PM PDTTransthoracic echocardiogram completed. Final report to follow. documented in this encounter Plan of Treatment Not on filedocumented as of this encounter Procedures + +--------+ + + + | Procedure Name | Priori | Date/Time | Associated Diagnosis | Comments | | | ty | | | | + +--------+ + + + | TRANSTHORACIC | | 05/21/2010 | | Results for this | | ECHOCARDIOGRAM, | | 12:00 AM | | procedure are in the | | ADULT | | PDT | | results section. | + +--------+ + + + documented in this encounter Results TRANSTHORACIC ECHOCARDIOGRAM, ADULT (05/21/2010 12:00 AM PDT) + + + | Narrative | Performed At | + + + | | | + + + + + | Procedure Note | + + | Poli Grubbs - 05/21/2010 4:52 PM PDT | | | + + documented in this encounter Visit Diagnoses Not on filedocumented in this encounter"
--- OUTSIDE RECORDS SUMMARY | ~2019-09-03 | XMS | Encounter Summary ---
Demographics + + + | Address | [address] | | | [place] [address] | + + + | Home Phone [...] | | | | | [place] [address] | | + + + + + | Dariana Dowling | ECON | Unknown | | + + + + + Care Team Providers + +------+ + | Care Core Placer Name | Role | Phone | + +------+ + PCP | Unavailable | + +------+ + Encounter Details +--------+ + + + + | Date | Type | Department | Care Team | Description | +--------+ + + + + | 11/17/ | Office | General Internal | Note, Outpatient | Progress Note | | 1994 | Visit-Trans | Medicine [address] | Clinic | | | | yovani | [address] | | | | | | Mailcode: L475 | | | | | | Outpatient Clinic | | | | | | [facility], [address] | | | | | | [place], [place] | | | | | | [address] | | | | | | [phone] | | | +--------+ + + + [...] as of this encounter Progress Notes Interface, Security Support Analyst In - 05/19/2006 5:11 AM PDT CLINIC DATE: 11/17/94 OTOLARYNGOLOGY, HEAD AND NECK SURGERY CLINIC CHIEF COMPLAINT: Recurrent sinusitis and nasal polyps. PRESENT ILLNESS: This 54-year-old white female has a history of recurrent sinusitis and nasal polyps. This has been going on for several years and she actually had a nasal polypectomy about ten years ago. She has been seen by Dr. Hartman in [place] and followed by her primary care physician for recurrent sinusitis which is manifested by yellow-green discharge and nasal stuffiness. Apparently a polypectomy was recommended three years ago but she has significant mitral stenosis and elected to not have surgery at that time. Over the past three years she has had to have antibiotics every three to four months because of yellow-green discharge. A variety of antibiotics has been used, most recently Doxycycline. She was in a sort of semi-steady state until October of this year when she was on vacation. At that time she felt quite good but on returning home she had quite severe nasal obstruction and recurrent infections. She had two courses of antibiotics and continues to have problems with breathing through her nose, particularly at night. This also then seems to make her heart problem worse. Her nose plugs off. She gets headaches over her frontal and ethmoid areas. She denies any epistaxis, uses Vancenase on a regular basis. Right now her discharge is between clear and yellow. She has been off the antibiotics about 1 1/[address] scan was three years ago. She also has mild asthma, but minimizes the symptoms when asked about them. PAST HISTORY: OPERATIONS: Nasal polypectomy in the , open heart surgery in 1976 and hysterectomy in 1982, both at [facility]. SERIOUS ILLNESSES: Mitral valve stenosis. DRUG ALLERGIES: Questionable to aspirin. MEDICATIONS: 1. Vancenase. 2. Max-air. 3. Aerobid one to two times a week for her asthma. 4. Lanoxin 0.25 mg daily. 5. Premarin 2 mg daily. 6. Tylenol prn. ENT REVIEW OF SYSTEMS: Negative except for present illness. PHYSICAL EXAMINATION: A 54-year-old well developed, well nourished white female who is alert and cooperative. Eyes: Pupils are equal, react to light, extraocular movements full. Nose: She has some congestion. She was sprayed with ephedrine and Xylocaine solution. On the right side she has polyps in the middle meatus, also medial to the middle turbinate superiorly. After spraying she does have a good airway, though. On the left side, again there are polyps in the middle meatus and around the middle turbinate. I didn't see any purulent material on either side. Mouth: She is partially edentulous, no lesions or ulcerations are seen. Oropharynx: No lesions seen. Nasopharynx: No lesions or discharge. Hypopharynx: Vocal cords are sharp, white, meet in the midline. Neck: No nodes are palpable. Ears: Tympanic membranes are mobile, lucent and intact. IMPRESSION: 1. Chronic sinusitis with nasal polyposis. 2. Mitral valve stenosis. RECOMMENDATIONS: She has a consultation with cardiology today for possible surgery consideration. I have recommended that we get a screening CT scan to see the status of her sinuses at this time. I certainly think she would be a candidate for bilateral intranasal ethmoidectomy with antral windows, depending on what the CT scan shows. Also it would depend on what the cement worker feels her risk is surgery-luna. Maxwell Garcia M.D. Professor, Otolaryngology Head and Neck Surgery JDS:halima cc: CLAUDIA HARTMAN MD [address] [place] [id number] nterface, Security Support Analyst In - 05/19/2006 5:11 AM PDT CLINIC DATE: 11/17/94 CARDIOLOGY CLINIC: SUBJECTIVE: Mrs. Schaeffer is a 54-year-old lady who was referred by Dr. Maxwell Garcia for preoperative evaluation prior to an ENT procedure, to remove a substantial amount of nasal polyps. Her cardiac history dates back to many years, having had rheumatic fever as a child and having undergone a mitral open commissurotomy on July 29, 1976. At the time of surgery the atrial septum was also explored and no patent foramen ovale or atrial septal defect could be identified. She currently has been bothered by shortness of breath and is unable to lay flat in bed. It is unclear as to how much of this is due to her nasal congestion, versus worsening of her aortic and mitral valve disease. The last echocardiogram obtained was in 04/20/94, which showed a left atrial size of 40 mm, a left ventricular end-diastolic dimension of 40 mm, a fractional shortening of 33% and an estimated ejection fraction by an M-mode echocardiogram of 63%. There was evidence on the two dimensional echocardiogram of mitral valve thickening, with some limitation of the mitral leaflet opening. Diastolic doming of the anterior leaflet of the mitral valve was noted. The aortic valve was also noted to be thickened with some limitation of the valve leaflet opening. Maximal aortic cusp separation was judged to be between 10 and 20 mm. Systolic right and left ventricular function was judged to be normal at that time. The Doppler and color flow study showed a peak systolic gradient across the aortic valve of 56 mmHg, with 1 to 2+ aortic valve insufficiency. A diastolic mitral valve gradient of 2.4 meters per second was also noted. The mitral valve area calculated by mitral valve half-time method was 1.38 cm . There was trace mitral valve insufficiency noted as well. An electrocardiogram done in September of this year showed a sinus rhythm, with left atrial enlargement and left ventricular hypertrophy, with a strain pattern. CURRENT MEDICATIONS: 1. Lanoxin 0.25 mg q.d. 2. Premarin .9 mg tablets, (1/4 tablet) .125 mg q.d. 3. Aerobid inhaler. 4. Maxair inhaler, p.r.n. 5. Aspirin, intermittently. OBJECTIVE: NECK: Her neck veins were not distended. Her carotids were 1+, with a referred murmur from the chest, bilaterally. The carotid upstroke was not judged to have an anacrotic notch in it. LUNGS: Clear to auscultation. CARDIOVASCULAR: The cardiac exam revealed a relatively normal S1, with a harsh Grade III/ systolic ejection murmur heard maximally along the right sternal border, radiating to the neck and down towards the axilla as well. There was also a Grade III/IV, blowing diastolic murmur heard along the left sternal border, radiating out towards the apex. There was also a separate Grade II/IV diastolic rumble, which appeared to be different from the aortic regurgitation murmur at the apex. The second heart sound appeared to be single, or very closely split, possibly representing a very narrow S2 opening snap (OS) interval. There was also a Grade III/ holosystolic murmur at the apex, radiating towards the axilla. ABDOMEN: The liver edge was not palpable. No spleen was palpable. EXTREMITIES: No peripheral edema. ASSESSMENT/PLAN: It appears as though Mrs. Schaeffer has significant rheumatic heart disease, with murmurs consistent with aortic stenosis, mitral stenosis, aortic regurgitation and mitral regurgitation. Since her last echocardiogram was seven months ago, we would wish to repeat this prior to proceeding with nasal polyp surgery. To this end we have ordered an echocardiogram today, the results of which will be available shortly -- I will then communicate them, and my impression as to the perioperative risk for Mrs. Schaeffer to Dr. Maxwell Garcia in the ENT Clinic. Gorge Rao M.D. Professor, Medicine Division of Cardiology LORA /evelyne A cc: Maxwell Garcia M.D. Professor, Otolaryngology Head and Neck Surgery documented in this encounter Plan of Treatment Not on filedocumented as of this encounter Visit Diagnoses Not on filedocumented in this encounter"
--- OUTSIDE RECORDS SUMMARY | ~2019-09-03 | XMS | Encounter Summary ---
Demographics + + + | Address | [address] | | | [place] [address] | + + + | Home Phone | | + + + | Preferred Language | Unknown | + + + | Marital Status | | + + + | Pentecostal Affiliation | VANDA | + + + | Race | White | + + + | Ethnic Group | Not or | + + + Author + + + | Author | [facility] | + + + | Organization | [facility] | + + + | Address | Unknown | + + + | Phone | Unavailable | + + + Support + + + + + | Name | Relationship | Address | Phone | + + + + + | Josue Schaeffer | ECON | [address] | | | | | [place] [address] | | + + + + + | Dariana Dowling | ECON | Unknown | | + + + + + Care Team Providers + +------+ + | Care Business Technology Analyst Name | Role | Phone | + +------+ + | Enoc Lee NP | PCP | | + +------+ + Encounter Details +--------+ + + + + | Date | Type | Department | Care Team | Description | +--------+ + + + + | 12/02/ | Ancillary | Registration [id number] | | | | 2004 | [address] | [address] | | | | | [address] | [address] Mailcode: [id number] | | | | | | [place], [place] | | | | | | [address] | | | | | | [phone] | | | +--------+ + + + [...]
--- OUTSIDE RECORDS SUMMARY | ~2019-09-03 | XMS | Encounter Summary ---
Demographics + + + | Address | [address] | | | [place] [address] | + + + | Home Phone [...] | | | | | [place] [address] | | + + + + + | Dariana Dowling | ECON | Unknown | | + + + + + Care Team Providers + +------+ + | Care Leading Firefighter Name | Role | Phone | + +------+ + PCP | Unavailable | + +------+ + Encounter Details +--------+ + + + + | Date | Type | Department | Care Team | Description | +--------+ + + + + | 10/15/ | Office | | Note, Outpatient | [...] as of this encounter Progress Notes Interface, Buncher Operator In - 09/07/2004 7:39 AM PDTClinic Date: 10/16/2003 Clinic: Otolaryngology History: Maria Alejandra returns today. She states that she was having a sinus infection with quite a bit of facial pressure although over the last couple of days, she has actually noted significant relief. She has had some large crust, especially from the left side. Procedure Note: Diagnostic nasal endoscopy. Anesthesia: Lidocaine 4% topical. Description of Procedure: A 4-mm 30-degree nasal endoscope was passed into the right nasal passage. Maxillary sinus appeared patent and clear, the ethmoid cavity was clear. The scope was then passed into the left nasal passage. The ethmoid cavity appeared clear, and the entrance to the sphenoidotomy was also patent. However, there was a large crust obstructing the left maxillary sinus which was removed. A curved suction was then passed to the maxillary sinus, and a large amount of discolored purulent-appearing secretions were removed and some of this was sent for culture and sensitivity. The underlying mucosa appeared quite erythematous. The scope was removed. The patient tolerated the procedure well. Assessment and Plan: Chronic left maxillary sinusitis. Symptomatically, the patient appears to be improving. Most of today's disease was confined to the left maxillary sinus. I encouraged her to continue her irrigations, and I think debriding out the old crusting from the sinus should help significantly. We did take a culture today, and she will call at the end of the week, and we will decide on antibiotic coverage. She has been having a significant amount of difficulty getting her anticoagulation status under control, and I would like to avoid antibiotics if possible. She will also let us know when she calls in whether or not she symptomatically continues to do well. Mayra Vega M.D. LES / [id number] / [id number] / [id number] / [id number] Tdocumented in this encounter Plan of Treatment Not on filedocumented as of this encounter Visit Diagnoses Not on filedocumented in this encounter"
--- OUTSIDE RECORDS SUMMARY | ~2019-09-03 | XMS | Encounter Summary ---
Demographics + + + | Address | [address] | | | [place] [address] | + + + | Home Phone [...] Josue Schaeffer | ECON | [address] | | | | | [place] [address] | | + + + + + | Dariana Dowling | ECON | Unknown | | + + + + + Care Team Providers + +------+ + | Care Caseworker Name | Role | Phone | + +------+ + | Josiah Walls MD | PCP | | + +------+ + Encounter Details +--------+ + + + + | Date | Type | Department | Care Team | Description | +--------+ + + + + | 11/03/ | Documentati | AntiCoagulation at | Note, | | | 2006 | on | [facility] [address] | Anticoagulation | | | | | [address] | Clinic | | | | | Physician's | | | | | | [place], [address] floor, | | | | | | [address] | | | | | | [place], [place] | | | | | | [address] | | | | | | [phone] | | | +--------+ + + + [...]
--- OUTSIDE RECORDS SUMMARY | ~2019-09-03 | XMS | Encounter Summary ---
Demographics + + + | Address | [address] | | | [place] [address] | + + + | Home Phone [...] | | | | | [place] [address] | | + + + + + | Dariana Dowling | ECON | Unknown | | + + + + + Care Team Providers + +------+ + | Care Hogshead Cooper Name | Role | Phone | + +------+ + | Josiah Walls MD | PCP | | + +------+ + Encounter Details +--------+ + + + + | Date | Type | Department | Care Team | Description | +--------+ + + + + | 12/10/ | Results | LAB CORE [address] | Other, Faculty | | | 1994 | Only | [address] | [phone] | | | | | [place], [place] | | | | | | [address] | | | | | | [phone] | | | +--------+ + + + [...] | + +--------+ + + + | SURGICAL PATHOLOGY | Routin | 12/10/1994 | | Results for this | | | e | | | procedure are in the | | | | | | results section. | + +--------+ + + + documented in this encounter Results SURGICAL PATHOLOGY (12/10/1994) + + + + + + | Component | Value | Ref Range | Performed | Pathologist | | | | | At | Signature | + + + + + + | SURGICAL | SOURCE OF SPECIMEN: SEE | | [facility] | | | PATHOLOGY | RESULTS | | DEPARTMENT | | | | Preliminary | | OF | | | | History:CLINICAL | | PATHOLOGY | | | | HISTORYThe patient is a | | | | | | 54 year old female with | | | | | | a history of severe | | | | | | aortic andmitral valve | | | | | | disease. GROSS | | | | | | DESCRIPTIONTwo specimens | | | | | | are received in | | | | | | formalin labeled as | | | | | | follows: #1 MITRAL | | | | | | VALVE: Present are | | | | | | three irregular | | | | | | fragments of pearly | | | | | | white,grossly | | | | | | identifiable valve | | | | | | tissue. The largest | | | | | | measures 3.0 x 3.0 x | | | | | | 1.0cm. and has multiple | | | | | | thin, papillary | | | | | | projections. Present | | | | | | in the valvetissue | | | | | | itself is suture which | | | | | | has gross evidence of | | | | | | valve tissue | | | | | | growingentirely around. | | | | | | Also present is suture | | | | | | which as been recently | | | | | | placed.On one aspect of | | | | | | the valve, there is a | | | | | | firm, easley-reinoso area | | | | | | whichmeasures 1.0 cm. in | | | | | | diameter. The two | | | | | | smaller fragments | | | | | | measure inaggregate 0.9 | | | | | | cm. in diameter. | | | | | | Tire Finisher | | | | | | sections are submitted | | | | | | incassette 1. #2 | | | | | | AORTIC VALVE: Present | | | | | | are three fragments of | | | | | | pearly off-white,grossly | | | | | | identifiable valvular | | | | | | tissue with two easley | | | | | | areas of | | | | | | discolorationwhich are | | | | | | firm, each measuring | | | | | | roughly 0.6 cm. in | | | | | | diameter. The | | | | | | largestfragment measures | | | | | | 3.0 x 1.5 x 1.0 cm., | | | | | | and the smallest | | | | | | measures 0.4 cm.in | | | | | | diameter. The specimen | | | | | | is multiply section and | | | | | | representativesections | | | | | | are submitted in | | | | | | cassette 2.Case dictated | | | | | | by: Baldemar France, | | | | | | MSIV/f FINAL | | | | | | DIAGNOSISMITRAL VALVE: | | | | | | MITRAL VALVE WITH | | | | | | FIBROCALCIFIC | | | | | | CHANGESAORTIC VALVE: | | | | | | AORTIC VALVE WITH | | | | | | FIBRIN INFLAMMATION AND | | | | | | VEGETATION Case | | | | | | reviewed by: Robson | | | | | | Kt CabreraT: | | | | | | 12/15/94 My | | | | | | electronic signature | | | | | | indicates that I have | | | | | | personally reviewed | | | | | | alldiagnostic slides, | | | | | | the gross and/or | | | | | | microscopic portion of | | | | | | thisreport and | | | | | | formulated the final | | | | | | diagnosis. | | | | + + + + + + + + | Specimen | + + | Other | + + + + + + + | Performing | Address | City/State/Zipcode | Phone Number | | Organization | | | | + + + + + | [facility] | [address] | [place] [address] | | | PATHOLOGY | [address] | | | + + + + + documented in this encounter Visit Diagnoses Not on filedocumented in this encounter"
--- OUTSIDE RECORDS SUMMARY | ~2019-09-03 | XMS | Encounter Summary ---
Demographics + + + | Address | [address] | | | [place] [address] | + + + | Home Phone [...] + + + | Author | [facility] | + + + | Organization | [facility] | + + + | Address | Unknown | + + + | Phone | Unavailable | + + + Support + + + + + | Name | Relationship | Address | Phone | + + + + + | Josue Schaeffer | ECON | [address] | | | | | [place] [address] | | + + + + + | Dariana Dowling | ECON | Unknown | | + + + + + Care Team Providers + +------+ + | Care Financial Report Service Sales Agent Name | Role | Phone | + +------+ + | Josiah Walls MD | PCP | | + +------+ + Reason for Visit + + + | Reason | Comments | + + + | Hypotension | | + + + | Bradycardia | | + + + | Fatigue | | + + + Encounter Details +--------+ + + + + | Date | Type | Department | Care Team | Description | +--------+ + + + + | 10/28/ | Telephone | Cardiology [facility] at | Emanuel Morgan, | Hypotension; | | 2009 | | [facility] [address] | | Bradycardia; Fatigue | | | | [facility] | | | | [facility], | | | | | | Building | | | | | | Floor [place], [place] | | | | | | [address] | | | | | | [phone] | | | +--------+ + + + [...]
--- OUTSIDE RECORDS SUMMARY | ~2019-09-03 | XMS | Encounter Summary ---
Demographics + + + | Address | [address] | | | [place] [address] | + + + | Home Phone | | + + + | Preferred Language | Unknown | + + + | Marital Status | | + + + | Yarsani Affiliation | VANDA | + + + [...] Josue Schaeffer | ECON | [address] | | | | | [place] [address] | | + + + + + | Dariana Dowling | ECON | Unknown | | + + + + + Care Team Providers + +------+ + | Care Solar Thermal Installer Name | Role | Phone | + +------+ + PCP | Unavailable | + +------+ + Reason for Visit + + + | Reason | Comments | + + + | Sinusitis | pt is developing sinus infection; has green nasal discharge, | | | facial pain and congestion. Pharmacy is [facility] in [place] | | | telephone [phone] | + + + Encounter Details +--------+ + + + + | Date | Type | Department | Care Team | Description | +--------+ + + + + | 05/01/ | Telephone | Otolaryngology | Mayra Vega MD | Sinusitis (pt is | | 2005 | | [facility] [address] | [address] | developing sinus | | | | [address] | [address] [place], | infection; has green | | | | Mailcode: OP01 | [place] [address] | nasal discharge, | | | | [facility] | [phone] | facial pain and | | | | [place], [place] | | congestion. Pharmacy | | | | [address] | | is [facility] in | | | | [phone] | | [place] telephone | | | | | | [phone]) | +--------+ + + + + Social [...] | Diagnosis | + + | Chronic frontal sinusitis - Primary | + + documented in this encounter"
--- OUTSIDE RECORDS SUMMARY | ~2019-09-03 | XMS | Encounter Summary ---
Demographics + + + | Address | [address] | | | [place] [address] | + + + | Home Phone | | + + + | Preferred Language | Unknown | + + + | Marital Status | | + + + | Denominational Affiliation | VANDA | + + + [...] | Josue Schaeffer | ECON | [address] | | | | | [place] [address] | | + + + + + | Dariana Dowling | ECON | Unknown | | + + + + + Care Team Providers + +------+ + | Care Beater Room Supervisor Name | Role | Phone | + +------+ + | Enoc Lee NP | PCP | | + +------+ + Encounter Details +--------+ + + + + | Date | Type | Department | Care Team | Description | +--------+ + + + + | 10/05/ | Ancillary | Registration [id number] | [address], | | | 2005 | Registratio | [facility] [address] | [address] [facility] | | | | [address] | [address] Mailcode: [id number] | [facility] | | | | | [place], [place] | [place], [place] | | | | | [address] | [address] | | | | | [phone] | [phone] | | | | | | | [...]
--- OUTSIDE RECORDS SUMMARY | ~2019-09-03 | XMS | Encounter Summary ---
Demographics + + + | Address | [address] | | | [place] [address] | + + + | Home Phone [...] Josue Schaeffer | ECON | [address] | | | | | [place] [address] | | + + + + + | Dariana Dowling | ECON | Unknown | | + + + + + Care Team Providers + +------+ + | Care Senior Oracle Soa Developer Name | Role | Phone | + +------+ + PCP | Unavailable | + +------+ + Encounter Details +--------+ + + + + | Date | Type | Department | Care Team | Description | +--------+ + + + + | 05/16/ | Office | General Internal | Note, Outpatient | Progress Note | | 1996 | Visit-Trans | Medicine [address] | Clinic | | | | yovani | [address] | | | | | | Mailcode: [id number] | | | | | | Outpatient Clinic | | | | | | [facility], [address] | | | | | | [place], [place] | | | | | | [address] | | | | | | [phone] | | | +--------+ + + + [...] as of this encounter Progress Notes Interface, Loom Control Chain Builder In - 04/10/2006 1:09 AM [facility] DATE: 05/16/96 OTOLARYNGOLOGY CLINIC SUBJECTIVE: Mrs. Schaeffer has been followed by Dr. Maxwell Garcia until his correction in January. She has a long history of sinusitis. She last had sinus surgery on 04/14/95. At that time she was felt to have nasal polyps, pansinusitis, and had a bilateral intranasal ethmoid, bilateral sphenoidotomy, natural ostia, and nasal antral window on the left. The patient states that she is doing okay. She is still having some stuffiness especially on the left side. When Dr. Garcia last saw her in January he felt that she did have some polypoid changes in the nasal frontal duct and apparently had a difficult time trying to clear that area during surgery. The patient will be flying to [place] in the near future and then going on a sea cruise. She is quite concerned about the air flight. She is currently on Coumadin, long-term. She has not been having any nose bleeds. She is on Flonase. She will be seeing Dr. Rao later today who apparently is going to recommend some medicine for motion sickness. OBJECTIVE: The patient is decongested thoroughly. The #30-degree sinus scope was used. She does have some mucus in the right sphenoid but this was easily removed. The area of the natural ostium and ethmoids actually look good on this side including the anterior ethmoid region. On the left she has polypoid changes along the roof of the ethmoid extending into the nasal frontal duct. She has mucus in the left sphenoid and this was removed. Some inflamed tissue was also seen on this side. Her airway actually is fairly good. She has no evidence of bleeding and there is no crusting. There is no postnasal drainage. ASSESSMENT: Chronic sinusitis under moderate control. Some recurrent nasal polyps on the left by note from January, probably not worse. PLAN: At this point, I think the patient should be generous with her saline rinses, continue the Flonase. I wrote for Bactroban ointment to be used to each nostril for any crusting or dryness. I wrote her a prescription for Trimox 500 mg TID. I wrote her a 42 day course. She said whenever she takes antibiotics she always requires 42 days to get better. I wrote a prescription for phenergan 25 mg tablets #10. I asked her to show this to Dr. Rao and determine if he would prefer to have her on a different antiemetic motion sickness medication. The patient will return here in three months. If she has any problems prior to that, I have asked her to call. Liz Tejada M.D. Professional Nurse, Otolaryngology, Head and Neck Surgery CLAIRE/gracie cc: Gorge Rao M.D. Professor, Medicine Division of Cardiology nterface, Loom Control Chain Builder In - 04/10/2006 1:09 AM PST CLINIC DATE: 05/16/96 CARDIOLOGY CLINIC: Mrs. Schaeffer returns to Cardiology Clinic today for follow-up of her aortic valve replacement. She has had no change in her cardiac symptoms. She has no paroxysmal nocturnal dyspnea or orthopnea. Her shortness of breath has recovered considerably since her early postoperative period. MEDICATIONS: Prinivil 2.5 mg b.i.d., Flonase, Maxair, Claritin, Tylenol 1000 mg q 4 h. and p.r.n. for joint pains and Coumadin as per the Anticoagulation Clinic and is currently at a dose of 5 mg daily. She and her are planning on going to a trip to [place] on a cruise shortly. PHYSICAL EXAMINATION: Vital Signs: Blood pressure was 138 systolic in both arms. Her pulse was 72 and regular. Weight 135 pounds. Neck: Neck veins were not distended. Carotids were 2+ without bruits. Lungs: Clear to auscultation. Cardiovascular: Billings prosthetic valve sounds with no diastolic murmur or rub. No systolic murmur was appreciated either. Extremities: No peripheral edema currently except for very mild swelling in her left arm. This is a chronic condition. ASSESSMENT/PLAN: Mrs. Schaeffer appears to be stable in terms of her mitral valve replacement. I find no evidence of congestive heart failure or valve dysfunction. Of some concern is the fact that her left arm swells. This is a chronic condition and makes one wonder if there is some partial venous obstruction. There is no difference in arterial pulse pressures or systolic blood pressure in either arm, however. Raising her arm results in a decrease in the edema which she can do reliably and this may not be a condition requiring further intervention at the present time. We discussed at some length her taking Premarin and I indorsed her continuing to take it. She is hesitant to do so because of the swelling it causes she says. I told her that she will need to have Pap smears and mammograms routinely. She is aware of that. She complains of pains in her joints diffusely and for that reason I have ordered a sed rate and BRADLEY and because of increasing cold intolerance I have checked a thyroid function test as well. We will schedule her for return clinic appointment in three or four months. She will be seen by Neurology for headache and other paresthesia type symptoms tomorrow. Gorge Rao M.D. Professor, Medicine Division of Cardiology LORA /lizzette A cc: Shan Vargas M.D. Professor and Worm Farmer, Department of Neurology Ihsan Carias M.D. Professor, Surgery Chief, Division of Cardiopulmonary Surgery Liz Tejada M.D. Professional Nurse, Otolaryngology Head and Neck Surgery documented in this encounter Plan of Treatment Not on filedocumented as of this encounter Visit Diagnoses Not on filedocumented in this encounter"
--- OUTSIDE RECORDS SUMMARY | ~2019-09-03 | XMS | Encounter Summary ---
Demographics + + + | Address | [address] | | | [place] [address] | + + + | Home Phone | | + + + | Preferred Language | Unknown | + + + | Marital Status | Single | + + + | Yazidism Affiliation | 1064 | + + + | Race | Unknown | + + + | Ethnic Group | Unknown | + + + Author + + + | Author | [facility] | | | and [place] | + + + | Organization | [facility] | | [...] Team Providers + +------+ + | Care Carbon Rod Inserter Name | Role | Phone | + +------+ + PCP | Unavailable | + +------+ + Encounter Details +--------+ + + + + | Date | Type | Department | Care Team | Description | +--------+ + + + + | 05/01/ | [facility] | [facility] | | | | 1997 | Encounter | MED CTR XRAY [address] | | | | | | [place] | | | | | | [place] [address] | | | | | | [phone] | | | +--------+ + + + [...]
--- OUTSIDE RECORDS SUMMARY | ~2019-09-03 | XMS | Encounter Summary ---
Demographics + + + | Address | [address] | | | [place] [address] | + + + | Home Phone | | + + + | Preferred Language | Unknown | + + + | Marital Status | | + + + | Zoroastrian Affiliation | VANDA | + + + | Race | White | + + + | Ethnic Group | Not or | + + + Author + + + | Author | [facility] | + + + | Organization | [facility] | + + + | Address | Unknown | + + + | Phone | Unavailable | + + + Support + + + + + | Name | Relationship | Address | Phone | + + + + + | Josue Schaeffer | ECON | [address] | | | | | [place] [address] | | + + + + + | Dariana Dowling | ECON | Unknown | | + + + + + Care Team Providers + +------+ + | Care Dogman/Woman Name | Role | Phone | + +------+ + PCP | Unavailable | + +------+ + Encounter Details +--------+ + + + + | Date | Type | Department | Care Team | Description | +--------+ + + + + | 12/15/ | Abstract | Cardiology - [facility] | Emanuel Morgan, | | | 2004 | | [address] | | | | | [address] Mailcode: | | | | | | [id number] [facility] | | | | | | [address] | | | | | | [place], [place] | | | | | | [address] | | | | | | [phone] | | | +--------+ + + + [...]
--- OUTSIDE RECORDS SUMMARY | ~2019-09-03 | XMS | Encounter Summary ---
Demographics + + + | Address | [address] | | | [place] [address] | + + + | Home Phone [...] Josue Schaeffer | ECON | [address] | | | | | [place] [address] | | + + + + + | Dariana Dowling | ECON | Unknown | | + + + + + Care Team Providers + +------+ + | Care Instrument Maker And Repairer Name | Role | Phone | [...] | | | | 4.0) Aortic | [place], [place] | Health and | | | | | valve | [address] | Healing, | | | | | disorders | | [address] | | | | | Procedures | | [place], [place] | | | | | TRANSTHORACI | | [address] | | | | | C | | Phone: | | | | | ECHOCARDIOGR | | [phone] | | | | | AM, ADULT | | | +--------+--------+ + + + + Encounter Details +--------+ + + + + | Date | Type | Department | Care Team | Description | +--------+ + + + + | 04/11/ | Electric Deicer Assembler | Cardiology [facility] at | Emanuel Morgan, | Mitral valve | | 2010 | | [facility] [address] | MD | disorder [address]; | | | | [facility] | | Aortic valve | | | | [facility] He[facility], | | disorder [address] | | | | Building | | | | | | Floor [place], [place] | | | | | | [address] | | | | | | [phone] | | | +--------+ + + + [...] | TRANSTHORACIC | ECG | Routin | Mitral valve | Ordered: 04/11/2010 | | ECHOCARDIOGRAM, | | e | disorder 424.0 | | | ADULT | | | Aortic valve | | [...]
--- OUTSIDE RECORDS SUMMARY | ~2019-09-03 | XMS | Encounter Summary ---
Demographics + + + | Address | [address] | | | [place] [address] | + + + | Home Phone [...] | | | | | [place] [address] | | + + + + + | Dariana Dowling | ECON | Unknown | | + + + + + Care Team Providers + +------+ + | Care Guest Request Runner Name | Role | Phone | + +------+ + PCP | Unavailable | + +------+ + Encounter Details +--------+ + + + + | Date | Type | Department | Care Team | Description | +--------+ + + + + | 04/12/ | Results | | Other, Faculty | | | 1995 | Only | | [phone] | | +--------+ + + + + [...] + | X-RAY CHEST 2 VIEW | Priori | 04/13/1995 | | Results for this | | | ty | 3:19 PM | | procedure are in the | | | | PST | | results section. | + +--------+ + + + documented in this encounter Results CHEST 2 VIEW (04/13/1995 3:19 PM PST) + + + + + + | Component | Value | Ref Range | Performed | Pathologist | | | | | At | Signature | + + + + + + | CHEST, 2 | Radiologist 1: VIANEY, | | | | | VIEWS [place] | JULIO CESAR CARRERA, | | | | | STEREO | MARIA ALEJANDRA | | | | | | | | | | | | | | | | | | [id number] CHEST, PA | | | | | | AND LATERAL VIEWS: | | | | | | 04/13/95 at 1519 hrs | | | | | | Dictated: 04/15/95 | | | | | | Comparison is made to | | | | | | 01/05/95. FINDINGS: | | | | | | Sternotomy wires as | | | | | | before. The aortic | | | | | | valve and mitralvalve | | | | | | replacements are noted. | | | | | | There is left atrial | | | | | | enlargement. Thereis | | | | | | no evidence for | | | | | | pulmonary edema or | | | | | | pneumonia. There is no | | | | | | pleuraleffusion. | | | | | | IMPRESSION: 1. Aortic | | | | | | and mitral valve | | | | | | replacements. 2. Left | | | | | | atrial enlargement as | | | | | | before. 3. Clear | | | | | | lungs. END OF | | | | | | IMPRESSION: | | | | + + + + + + + + | Specimen | + + | | + + + + + | Narrative | Performed At | + + + | Ordered by TYREE BALL M.D. | | + + + + [...]
--- OUTSIDE RECORDS SUMMARY | ~2019-09-03 | XMS | Clinical Summary ---
Demographics + + + | Address | [address] | | | [place] [address] | + + + | Home Phone | | + + + | Preferred Language | Unknown | + + + | Marital Status | Single | + + + | Evangelical Affiliation | 1064 | + + + | Race | Unknown | + + + | Ethnic Group | Unknown | + + + Author + + + | Author | [facility] | | | and [place] | + + + | Organization | [facility] | | | and [...] Team Providers + +------+ + | Care Paid Search Analyst Name | Role | Phone | [...] subclavian noted | | | | [facility] [place] | + + + [...] | Theo mitral valve on 12/10/94 at [facility] by Ihsan Carias | | KtEchocardiogram on [...] is present. By Emanuel Morgan M.D. at [facility] Successful | | implantation of a loop recorder on 11/08/09 at [facility] | | explanation of a implantable loop recorder on 01[facility]01/10 [facility] | [facility] shows left ventricular size and [...] for comparison. By Bandar Tucker MD at [facility]. Echocardiogram | | on 01/13/12 shows, the [...] significant [facility]. [facility] | | on 12/29/12 shows the cardiac [...] prior exam. By Markie Mathur MD. at [facility] | + + + + + | [...] MD | | | | | | [address] | | | | | | | | / | + +--------+--------+ +--------+--------+--------+ | Rv Lead-06/24/2015Implanted: | Lead | | [employer] - | | | [id number] | | Qty: 1 on 06/24/2015 by | | | MEDT | | | /[id number] | | Markie Mathur [place] | | | | | | [id number] | | | | | | | [...] | | | | | | | [id number] | | | | | | | [...] [place] | | | | | | [phone]) on 07/28/2019 | | | | | [...] +--------+ +---------+--------+ | MEDICARE | MEDICA | [id number] | 08/09/19 | [phone] | | Medica | | | RE | | 07-Pre | 5 | | re | | | PART A | | sent | | | | | | AND B | | | | | | + +--------+ +--------+ +---------+--------+ | INDIVIDUAL ASSURANCE | INDIVI | [id number] | 07/12/19 | | | Indemn | [...] Person | Self | [birth year] | [address] | | | al/Fam | | 1941 | [phone] | [place] | | | allen | | | 5 (Home) | [address] | + +--------+ +--------+ + + Advance Directives + + + + + | Type | Date Recorded | Patient | Explanation | | | | Speech Language Pathologist Travel | | + + + + + | Power of | | | | | Commission Associate | | | | + + + + + | Advance | | | | | Directive | | | | + + + + +
--- OUTSIDE RECORDS SUMMARY | ~2019-09-03 | XMS | Encounter Summary ---
Demographics + + + | Address | [address] | | | [place] [address] | + + + | Home Phone | | + + + | Preferred Language | Unknown | + + + | Marital Status | | + + + | Moravian Affiliation | VANDA | + + + | Race | White | + + + | Ethnic Group | Not or | + + + Author + + + | Author | [facility] | + + + | Organization | [facility] | + + + | Address | Unknown | + + + | Phone | Unavailable | + + + Support + + + + + | Name | Relationship | Address | Phone | + + + + + | Josue Schaeffer | ECON | [address] | | | | | [place] [address] | | + + + + + | Dariana Dowling | ECON | Unknown | | + + + + + Care Team Providers + +------+ + | Care Director Public Policy Name | Role | Phone | + +------+ + | Enoc Lee NP | PCP | | + +------+ + Encounter Details +--------+ + + + + | Date | Type | Department | Care Team | Description | +--------+ + + + + | 10// | Ancillary | Registration [address] | Emanuel Morgan, | | | [address] | [address] | [address] | | | | | [address] | [address] Mailcode: [id number] | | | | | | [place], [place] | | | | | | [address] | | | | | | [phone] | | | +--------+ + + + [...]
--- OUTSIDE RECORDS SUMMARY | ~2019-09-03 | XMS | Encounter Summary ---
Demographics + + + | Address | [address] | | | [place] [address] | + + + | Home Phone [...] | | | | | [place] [address] | | + + + + + | Dariana Dowling | ECON | Unknown | | + + + + + Care Team Providers + +------+ + | Care Communications Equipment Installer Name | Role | Phone | + +------+ + PCP | Unavailable | + +------+ + Encounter Details +--------+ + + + + | Date | Type | Department | Care Team | Description | +--------+ + + + + | 12/11/ | Results | | Other, Faculty | | | 1994 | Only | | [phone] | | +--------+ + + + + [...] X-RAY CHEST 2 VIEW | Routin | 01/05/1995 | | Results for this | | | e | 3:35 PM | | procedure are in the | | | | PST | | results section. | + +--------+ + + + | X-RAY CHEST 2 VIEW | Routin | 12/15/1994 | | Results for this | | | e | 8:45 AM | | procedure are in the | | | | PST | | results section. | + +--------+ + + + | CHEST, 1 VIEW, | Routin | 12/14/1994 | | Results for this | | PORTABLE | e | 5:30 AM | | procedure are in the | | | | PST | | results section. | + +--------+ + + + | CHEST, 1 VIEW, | Routin | 12/13/1994 | | Results for this | | PORTABLE | e | 6:00 AM | | procedure are in the | | | | PST | | results section. | + +--------+ + + + | CHEST, 1 VIEW, | Routin | 12/12/1994 | | Results for this | | PORTABLE | e | 12:00 PM | | procedure are in the | | | | PST | | results section. | + +--------+ + + + | CHEST, 1 VIEW, | Routin | 12/12/1994 | | Results for this | | PORTABLE | e | 5:38 AM | | procedure are in the | | | | PST | | results section. | + +--------+ + + + | CHEST, 1 VIEW, | Routin | 12/11/1994 | | Results for this | | PORTABLE | e | 5:30 AM | | procedure are in the | | | | PST | | results section. | + +--------+ + + + | CHEST, 1 VIEW, | Urgent | 12/10/1994 | | Results for this | | PORTABLE | | 7:10 PM | | procedure are in the | | | | PST | | results section. | + +--------+ + + + documented in this encounter Results CHEST 2 VIEW (01/05/1995 3:35 PM PST) + + + + + + | Component | Value | Ref Range | Performed | Pathologist | | | | | At | Signature | + + + + + + | CHEST, 2 | Radiologist 1: | | | | | VIEWS OR | JORDI AVILA, | | | | | STEREO | MARIA ALEJANDRA HARRELL | | | | | | | | | | | | | | | | | | [id number] | | | | | | CHEST, 2 VIEWS: | | | | | | 01/05/95 at 1535 hrs | | | | | | Dictated: 01/06/95 | | | | | | Comparison is made to | | | | | | two view examination of | | | | | | 12/15/94. FINDINGS: The | | | | | | left pleural effusion | | | | | | has completely resolved. | | | | | | Thecardiac transverse | | | | | | diameter is reduced | | | | | | slightly. The lungs are | | | | | | clear.The xyphoid level | | | | | | wire leads are no | | | | | | longer seen. Linear | | | | | | densityremains in the | | | | | | same general position as | | | | | | seen in the lateral | | | | | | projectionover the | | | | | | cardiac shadow inferior | | | | | | to the hilar vessel | | | | | | conglomerate. | | | | | | IMPRESSION: Interval | | | | | | resolution of the left | | | | | | pleural effusion. END | | | | | | OF IMPRESSION: | | | | + + + + + + + + | Specimen | + + | | + + + + + | Narrative | Performed At | + + + | Ordered by JACK BENOIT M.D. | | + + + + +---------+ + + | Performing | Address | City/State/Zipcode | Phone Number | | Organization | | | | + +---------+ + + | [facility] DEPARTMENT OF | | | | | RADIOLOGY | | | | + +---------+ + + CHEST 2 VIEW (12/15/1994 8:45 AM PST) + + + + + + | Component | Value | Ref Range | Performed | Pathologist | | | | | At | Signature | + + + + + + | CHEST, 2 | Radiologist 1: | | | | | VIEWS [place] | JORDI AVILA, | | | | | STEREO MARIA ALEJANDRA CANALES | | | | | | | | | | | | 00 | | | | | | 61 04 21 TWO-VIEW CHEST: | | | | | | 12/15/94 at 0800 hrs | | | | | | Dictated: 12/15/94 | | | | | | Comparison is made to | | | | | | portable PA examination | | | | | | of 12/14/94. FINDINGS: | | | | | | The right chest tube | | | | | | has been removed. | | | | | | There is no | | | | | | rightpneumothorax. A | | | | | | slight pleural angle | | | | | | blunting is apparent on | | | | | | theright. There is a | | | | | | more significant | | | | | | effusion on the left, no | | | | | | leftpneumothorax. The | | | | | | mediastinum is | | | | | | unchanged. Pacer | | | | | | leads are seenover the | | | | | | lower anterior chest on | | | | | | the lateral view. | | | | | | IMPRESSION: 1. Right | | | | | | chest tube removed | | | | | | without recurrent | | | | | | pneumothorax. 2. | | | | | | Continued left pleural | | | | | | effusion. END OF | | | | | | IMPRESSION: | | | | + + + + + + + + | Specimen | + + | | + + + + + | Narrative | Performed At | + + + | Ordered by DEBI SMITH | | + + + + +---------+ + + | Performing | Address | City/State/Zipcode | Phone Number | | Organization | | | | + +---------+ + + | [facility] DEPARTMENT OF | | | | | RADIOLOGY | | | | + +---------+ + + CHEST, 1 VIEW, PORTABLE (12/14/1994 5:30 AM PST) + + + + + + | Component | Value | Ref Range | Performed | Pathologist | | | | | At | Signature | + + + + + + | CHEST, 1 | Radiologist 1: LORETTA | | | | | HELLEN, | SUDHEER | | | | | PORTABLE | J.-Radiologist 2: | | | | | | LORENA REBOLLAR | | | | | | MARIA ALEJANDRA HARRELL | | | | | | | | | | | | | | | | | | | | | | | | PORTABLE ERECT AP CHEST: | | | | | | 12/14/94 at 05:30 | | | | | | Dictated 12/14/94 | | | | | | Comparison is made to | | | | | | portable semierect AP | | | | | | chest of 12/13/94 | | | | | | at06:00. FINDINGS: A | | | | | | right chest tube is | | | | | | again noted and | | | | | | unchanged inposition. | | | | | | The lung volumes are | | | | | | slightly increased. | | | | | | Left | | | | | | retrocardiacopacity | | | | | | persists. A small left | | | | | | pleural effusion is | | | | | | noted. There | | | | | | areopacities seen | | | | | | overlying the right | | | | | | upper lobe without | | | | | | significantinterval | | | | | | change. Linear | | | | | | atelectasis is noted at | | | | | | the right base. | | | | | | Nodefinite | | | | | | pneumothorax is | | | | | | identified. IMPRESSION: | | | | | | 1. Right chest tube | | | | | | in place without | | | | | | significant interval | | | | | | change inposition | | | | | | without definite | | | | | | pneumothorax. 2. | | | | | | Persistent left lower | | | | | | lobe opacity consistent | | | | | | with atelectasisversus | | | | | | consolidation. 3. | | | | | | Small left pleural | | | | | | effusion. 4. Right | | | | | | lower lobe linear | | | | | | atelectasis. 5. Right | | | | | | upper lobe linear | | | | | | opacities consistent | | | | | | with atelectasisversus | | | | | | scarring. END OF | | | | | | IMPRESSION: | | | | + + + + + + + + | Specimen | + + | | + + + + + | Narrative | Performed At | + + + | Ordered by DEBI SMITH | | + + + + +---------+ + + | Performing | Address | City/State/Zipcode | Phone Number | | Organization | | | | + +---------+ + + | [facility] DEPARTMENT OF | | | | | RADIOLOGY | | | | + +---------+ + + CHEST, 1 VIEW, PORTABLE (12/13/1994 6:00 AM PST) + + + + + + | Component | Value | Ref Range | Performed | Pathologist | | | | | At | Signature | + + + + + + | CHEST, 1 | Radiologist 1: VIANEY, | | | | | VIEW, | Kt CARRERA-Radiologist | | | | | PORTABLE | 2: COLEEN MCCLENDON | | | | | | MARIA ALEJANDRA HARRELL | | | | | | | | | | | | | | | | | | 00 61 04 21 | | | | | | PORTABLE CHEST: | | | | | | 12-10-94 at 1900 hrs. | | | | | | Dictated: 12-13-94 | | | | | | FINDINGS: Comparison | | | | | | is made with the prior | | | | | | study dated 12-09-94. | | | | | | Sternotomy wires and | | | | | | mediastinal drains have | | | | | | been placed. A | | | | | | leftsided NG tube is | | | | | | coiled within the fundus | | | | | | of the stomach. A | | | | | | rightsided chest tube | | | | | | has been placed and no | | | | | | pneumothorax is seen. | | | | | | The ETtube is | | | | | | approximately 5 cm from | | | | | | the tip of the naif. | | | | | | Opacities areseen in | | | | | | the right base. No | | | | | | left sided pneumothorax | | | | | | is evident.A [place] Luis Antonio | | | | | | catheter has been placed | | | | | | and its tip is in the | | | | | | right mainpulmonary | | | | | | artery. IMPRESSION: | | | | | | Postoperative chest | | | | | | without evidence of | | | | | | pneumothorax. | | | | | | Rightbasilar | | | | | | atelectasis. PORTABLE | | | | | | CHEST: 12-12-94 AT 0530 | | | | | | HRS. FINDINGS:Comparison | | | | | | is made with the prior | | | | | | films.[place] Luis Antonio catheter | | | | | | has been withdrawn | | | | | | slightly and its tip | | | | | | appears joaquim in the main | | | | | | pulmonary artery. The | | | | | | patient has been | | | | | | extubated. Theright | | | | | | sided chest tube remains | | | | | | within the hemithorax | | | | | | and nopneumothorax is | | | | | | seen. There are | | | | | | increased opacities in | | | | | | theretrocardiac region | | | | | | and left lung base. | | | | | | The left hemidiaphragm | | | | | | hasbeen obscured. | | | | | | IMPRESSION: Opacities | | | | | | in the left lung base | | | | | | likely due to | | | | | | atelectasis withpleural | | | | | | effusion. No | | | | | | pneumothorax is seen. | | | | | | PORTABLE CHEST: | | | | | | 12-12-94 AT 1200 HRS. | | | | | | FINDINGS: A tiny right | | | | | | apical pneumothorax is | | | | | | present. | | | | | | Theretrocardiac | | | | | | opacities persist in the | | | | | | left base and a small | | | | | | leftpleural effusion | | | | | | persists. Improved | | | | | | aeration of the left | | | | | | lung ispresent. The | | | | | | [place] Luis Antonio catheter has | | | | | | been removed and a left | | | | | | sidedsheath remains. | | | | | | IMPRESSION: 1. Right | | | | | | apical pneumothorax with | | | | | | chest tube in place. 2. | | | | | | Improved aeration of | | | | | | the left lung with small | | | | | | persistent leftpleural | | | | | | effusion and left | | | | | | basilar and retrocardiac | | | | | | atelectasis. PORTABLE | | | | | | CHEST: 12-13-94 AT 0600 | | | | | | HRS. FINDINGS: A | | | | | | small right apical | | | | | | pneumothorax persists. | | | | | | Retrocardiacopacities | | | | | | and a small left pleural | | | | | | effusion persists as | | | | | | well. IMPRESSION: No | | | | | | significant interval | | | | | | change. END OF | | | | | | IMPRESSION: END OF | | | | | | IMPRESSION: END OF | | | | | | IMPRESSION: END OF | | | | | | IMPRESSION: | | | | + + + + + + + + | Specimen | + + | | + + + + + | Narrative | Performed At | + + + | Ordered by DEBI SMITH | | + + + + +---------+ + + | Performing | Address | City/State/Zipcode | Phone Number | | Organization | | | | + +---------+ + + | [facility] DEPARTMENT OF | | | | | RADIOLOGY | | | | + +---------+ + + CHEST, 1 VIEW, PORTABLE (12/12/1994 12:00 PM PST) + + + + + + | Component | Value | Ref Range | Performed | Pathologist | | | | | At | Signature | + + + + + + | CHEST, 1 | Radiologist 1: VIANEY | | | | | HELLEN | Kt CARRERA-Radiologist | | | | | PORTABLE | 2: COLEEN MCCLENDON, | | | | | | MARIA ALEJANDRA HARRELL | | | | | | | | | | | | | | | | | | 00 61 04 21 | | | | | | PORTABLE CHEST: | | | | | | 12-10-94 at 1900 hrs. | | | | | | Dictated: 12-13-94 | | | | | | FINDINGS: Comparison | | | | | | is made with the prior | | | | | | study dated 12-09-94. | | | | | | Sternotomy wires and | | | | | | mediastinal drains have | | | | | | been placed. A | | | | | | leftsided NG tube is | | | | | | coiled within the fundus | | | | | | of the stomach. A | | | | | | rightsided chest tube | | | | | | has been placed and no | | | | | | pneumothorax is seen. | | | | | | The ETtube is | | | | | | approximately 5 cm from | | | | | | the tip of the naif. | | | | | | Opacities areseen in | | | | | | the right base. No | | | | | | left sided pneumothorax | | | | | | is evident.A Trenton Salmon | | | | | | catheter has been placed | | | | | | and its tip is in the | | | | | | right mainpulmonary | | | | | | artery. IMPRESSION: | | | | | | Postoperative chest | | | | | | without evidence of | | | | | | pneumothorax. | | | | | | Rightbasilar | | | | | | atelectasis. PORTABLE | | | | | | CHEST: 12-12-94 AT 0530 | | | | | | HRS. FINDINGS:Comparison | | | | | | is made with the prior | | | | | | films.[place] Luis Antonio catheter | | | | | | has been withdrawn | | | | | | slightly and its tip | | | | | | appears joaquim in the main | | | | | | pulmonary artery. The | | | | | | patient has been | | | | | | extubated. Theright | | | | | | sided chest tube remains | | | | | | within the hemithorax | | | | | | and nopneumothorax is | | | | | | seen. There are | | | | | | increased opacities in | | | | | | theretrocardiac region | | | | | | and left lung base. | | | | | | The left hemidiaphragm | | | | | | hasbeen obscured. | | | | | | IMPRESSION: Opacities | | | | | | in the left lung base | | | | | | likely due to | | | | | | atelectasis withpleural | | | | | | effusion. No | | | | | | pneumothorax is seen. | | | | | | PORTABLE CHEST: | | | | | | 12-12-94 AT 1200 HRS. | | | | | | FINDINGS: A tiny right | | | | | | apical pneumothorax is | | | | | | present. | | | | | | Theretrocardiac | | | | | | opacities persist in the | | | | | | left base and a small | | | | | | leftpleural effusion | | | | | | persists. Improved | | | | | | aeration of the left | | | | | | lung ispresent. The | | | | | | [place] Luis Antonio catheter has | | | | | | been removed and a left | | | | | | sidedsheath remains. | | | | | | IMPRESSION: 1. Right | | | | | | apical pneumothorax with | | | | | | chest tube in place. 2. | | | | | | Improved aeration of | | | | | | the left lung with small | | | | | | persistent leftpleural | | | | | | effusion and left | | | | | | basilar and retrocardiac | | | | | | atelectasis. PORTABLE | | | | | | CHEST: 12-13-94 AT 0600 | | | | | | HRS. FINDINGS: A | | | | | | small right apical | | | | | | pneumothorax persists. | | | | | | Retrocardiacopacities | | | | | | and a small left pleural | | | | | | effusion persists as | | | | | | well. IMPRESSION: No | | | | | | significant interval | | | | | | change. END OF | | | | | | IMPRESSION: END OF | | | | | | IMPRESSION: END OF | | | | | | IMPRESSION: END OF | | | | | | IMPRESSION: | | | | + + + + + + + + | Specimen | + + | | + + + + + | Narrative | Performed At | + + + | Ordered by DEBI SMITH | | + + + + +---------+ + + | Performing | Address | City/State/Zipcode | Phone Number | | Organization | | | | + +---------+ + + | [facility] DEPARTMENT OF | | | | | RADIOLOGY | | | | + +---------+ + + CHEST, 1 VIEW, PORTABLE (12/12/1994 5:38 AM PST) + + + + + + | Component | Value | Ref Range | Performed | Pathologist | | | | | At | Signature | + + + + + + | CHEST, 1 | Radiologist 1: VIANEY | | | | | HELLEN | Kt CARRERA-Radiologist | | | | | PORTABLE | 2: COLEEN MCCLENDON | | | | | | MARIA ALEJANDRA HARRELL | | | | | | | | | | | | | | | | | | 00 61 04 21 | | | | | | PORTABLE CHEST: | | | | | | 12-10-94 at 1900 hrs. | | | | | | Dictated: 12-13-94 | | | | | | FINDINGS: Comparison | | | | | | is made with the prior | | | | | | study dated 12-09-94. | | | | | | Sternotomy wires and | | | | | | mediastinal drains have | | | | | | been placed. A | | | | | | leftsided NG tube is | | | | | | coiled within the fundus | | | | | | of the stomach. A | | | | | | rightsided chest tube | | | | | | has been placed and no | | | | | | pneumothorax is seen. | | | | | | The ETtube is | | | | | | approximately 5 cm from | | | | | | the tip of the naif. | | | | | | Opacities areseen in | | | | | | the right base. No | | | | | | left sided pneumothorax | | | | | | is evident.A [place] Luis Antonio | | | | | | catheter has been placed | | | | | | and its tip is in the | | | | | | right mainpulmonary | | | | | | artery. IMPRESSION: | | | | | | Postoperative chest | | | | | | without evidence of | | | | | | pneumothorax. | | | | | | Rightbasilar | | | | | | atelectasis. PORTABLE | | | | | | CHEST: 12-12-94 AT 0530 | | | | | | HRS. FINDINGS:Comparison | | | | | | is made with the prior | | | | | | films.[place] Luis Antonio catheter | | | | | | has been withdrawn | | | | | | slightly and its tip | | | | | | appears joaquim in the main | | | | | | pulmonary artery. The | | | | | | patient has been | | | | | | extubated. Theright | | | | | | sided chest tube remains | | | | | | within the hemithorax | | | | | | and nopneumothorax is | | | | | | seen. There are | | | | | | increased opacities in | | | | | | theretrocardiac region | | | | | | and left lung base. | | | | | | The left hemidiaphragm | | | | | | hasbeen obscured. | | | | | | IMPRESSION: Opacities | | | | | | in the left lung base | | | | | | likely due to | | | | | | atelectasis withpleural | | | | | | effusion. No | | | | | | pneumothorax is seen. | | | | | | PORTABLE CHEST: | | | | | | 12-12-94 AT 1200 HRS. | | | | | | FINDINGS: A tiny right | | | | | | apical pneumothorax is | | | | | | present. | | | | | | Theretrocardiac | | | | | | opacities persist in the | | | | | | left base and a small | | | | | | leftpleural effusion | | | | | | persists. Improved | | | | | | aeration of the left | | | | | | lung ispresent. The | | | | | | [place] Luis Antonio catheter has | | | | | | been removed and a left | | | | | | sidedsheath remains. | | | | | | IMPRESSION: 1. Right | | | | | | apical pneumothorax with | | | | | | chest tube in place. 2. | | | | | | Improved aeration of | | | | | | the left lung with small | | | | | | persistent leftpleural | | | | | | effusion and left | | | | | | basilar and retrocardiac | | | | | | atelectasis. PORTABLE | | | | | | CHEST: 12-13-94 AT 0600 | | | | | | HRS. FINDINGS: A | | | | | | small right apical | | | | | | pneumothorax persists. | | | | | | Retrocardiacopacities | | | | | | and a small left pleural | | | | | | effusion persists as | | | | | | well. IMPRESSION: No | | | | | | significant interval | | | | | | change. END OF | | | | | | IMPRESSION: END OF | | | | | | IMPRESSION: END OF | | | | | | IMPRESSION: END OF | | | | | | IMPRESSION: | | | | + + + + + + + + | Specimen | + + | | + + + + + | Narrative | Performed At | + + + | Ordered by DEBI SMITH | | + + + + +---------+ + + | Performing | Address | City/State/Zipcode | Phone Number | | Organization | | | | + +---------+ + + | [facility] DEPARTMENT OF | | | | | RADIOLOGY | | | | + +---------+ + + CHEST, 1 VIEW, PORTABLE (12/11/1994 5:30 AM PST) + + + + + + | Component | Value | Ref Range | Performed | Pathologist | | | | | At | Signature | + + + + + + | CHEST, 1 | Radiologist 1: VIANEY | | | | | VIEW, | Kt CARRERA-Radiologist | | | | | PORTABLE | 2: LORENA REBOLLAR | | | | | | MARIA ALEJANDRA HARRELL | | | | | | | | | | | | | | | | | | 00 61 04 21 | | | | | | CHEST, SINGLE PORTABLE | | | | | | VIEW: 12/11/94 AT 0530 | | | | | | HOURS DICTATED: | | | | | | 12/11/94 COMPARISON: | | | | | | Portable recumbent AP | | | | | | chest dated 12/10/94 at | | | | | | 1910 hours. FINDINGS: | | | | | | An endotracheal tube | | | | | | tip is present with the | | | | | | tip at thethoracic | | | | | | inlet. An enteric tube | | | | | | is seen with the tip | | | | | | and side portnot being | | | | | | imaged, but below the | | | | | | diaphragm. A left IJ | | | | | | venous [place]-Ganzcatheter | | | | | | is in place with the | | | | | | tip in the right | | | | | | pulmonary artery.Right | | | | | | chest tube is noted. | | | | | | Anterior mediastinal | | | | | | drains are present inthe | | | | | | midline. Sternotomy | | | | | | wires are again seen. In | | | | | | the interval, pulmonary | | | | | | edema has decreased. | | | | | | Linear opacities | | | | | | areseen in the right | | | | | | upper lobe. No | | | | | | definite pneumothorax is | | | | | | identified. | | | | | | IMPRESSION: 1. | | | | | | Support equipment as | | | | | | above. 2. No definite | | | | | | pneumothorax. 3. | | | | | | Decreased pulmonary | | | | | | edema. 4. Linear | | | | | | opacities in the right | | | | | | upper lobe consistent | | | | | | with oldscarring versus | | | | | | linear atelectasis. END | | | | | | OF IMPRESSION: | | | | + + + + + + + + | Specimen | + + | | + + + + + | Narrative | Performed At | + + + | Ordered by DEBI SMITH | | + + + + +---------+ + + | Performing | Address | City/State/Zipcode | Phone Number | | Organization | | | | + +---------+ + + | [facility] DEPARTMENT OF | | | | | RADIOLOGY | | | | + +---------+ + + CHEST, 1 VIEW, PORTABLE (12/10/1994 7:10 PM PST) + + + + + + | Component | Value | Ref Range | Performed | Pathologist | | | | | At | Signature | + + + + + + | CHEST, 1 | Radiologist 1: VIANEY | | | | | HELLEN | Kt CARRERA-Radiologist | | | | | PORTABLE | 2: COLEEN MCCLENDON | | | | | | MARIA ALEJANDRA HARRELL | | | | | | | | | | | | | | | | | | 00 61 04 21 | | | | | | PORTABLE CHEST: | | | | | | 12-10-94 at 1900 hrs. | | | | | | Dictated: 12-13-94 | | | | | | FINDINGS: Comparison | | | | | | is made with the prior | | | | | | study dated 12-09-94. | | | | | | Sternotomy wires and | | | | | | mediastinal drains have | | | | | | been placed. A | | | | | | leftsided NG tube is | | | | | | coiled within the fundus | | | | | | of the stomach. A | | | | | | rightsided chest tube | | | | | | has been placed and no | | | | | | pneumothorax is seen. | | | | | | The ETtube is | | | | | | approximately 5 cm from | | | | | | the tip of the naif. | | | | | | Opacities areseen in | | | | | | the right base. No | | | | | | left sided pneumothorax | | | | | | is evident.A [place] Luis Antonio | | | | | | catheter has been placed | | | | | | and its tip is in the | | | | | | right mainpulmonary | | | | | | artery. IMPRESSION: | | | | | | Postoperative chest | | | | | | without evidence of | | | | | | pneumothorax. | | | | | | Rightbasilar | | | | | | atelectasis. PORTABLE | | | | | | CHEST: 12-12-94 AT 0530 | | | | | | HRS. FINDINGS:Comparison | | | | | | is made with the prior | | | | | | films.B[place] Luis Antonio catheter | | | | | | has been withdrawn | | | | | | slightly and its tip | | | | | | appears joaquim in the main | | | | | | pulmonary artery. The | | | | | | patient has been | | | | | | extubated. Theright | | | | | | sided chest tube remains | | | | | | within the hemithorax | | | | | | and nopneumothorax is | | | | | | seen. There are | | | | | | increased opacities in | | | | | | theretrocardiac region | | | | | | and left lung base. | | | | | | The left hemidiaphragm | | | | | | hasbeen obscured. | | | | | | IMPRESSION: Opacities | | | | | | in the left lung base | | | | | | likely due to | | | | | | atelectasis withpleural | | | | | | effusion. No | | | | | | pneumothorax is seen. | | | | | | PORTABLE CHEST: | | | | | | 12-12-94 AT 1200 HRS. | | | | | | FINDINGS: A tiny right | | | | | | apical pneumothorax is | | | | | | present. | | | | | | Theretrocardiac | | | | | | opacities persist in the | | | | | | left base and a small | | | | | | leftpleural effusion | | | | | | persists. Improved | | | | | | aeration of the left | | | | | | lung ispresent. The | | | | | | [place] [facility] catheter has | | | | | | been removed and a left | | | | | | sidedsheath remains. | | | | | | IMPRESSION: 1. Right | | | | | | apical pneumothorax with | | | | | | chest tube in place. 2. | | | | | | Improved aeration of | | | | | | the left lung with small | | | | | | persistent leftpleural | | | | | | effusion and left | | | | | | basilar and retrocardiac | | | | | | atelectasis. PORTABLE | | | | | | CHEST: 12-13-94 AT 0600 | | | | | | HRS. FINDINGS: A | | | | | | small right apical | | | | | | pneumothorax persists. | | | | | | Retrocardiacopacities | | | | | | and a small left pleural | | | | | | effusion persists as | | | | | | well. IMPRESSION: No | | | | | | significant interval | | | | | | change. END OF | | | | | | IMPRESSION: END OF | | | | | | IMPRESSION: END OF | | | | | | IMPRESSION: END OF | | | | | | IMPRESSION: | | | | + + + + + + + + | Specimen | + + | | + + + + + | Narrative | Performed At | + + + | Ordered by DEBI SMITH | | + + + + +---------+ + + | Performing | Address | City/State/Zipcode | Phone Number | | Organization | | | | + +---------+ + + | [facility] DEPARTMENT | | | | | RADIOLOGY | | | | + +---------+ + + documented in this encounter Visit Diagnoses Not on filedocumented in this encounter"
--- OUTSIDE RECORDS SUMMARY | ~2019-09-03 | XMS | Encounter Summary ---
[...] Josue Schaeffer | ECON | [address] | | | | | [place] [address] | | + + + + + | Dariana Dowling | ECON | Unknown | | + + + + + Care Team Providers + +------+ + | Care Lime Kiln Tender Name | Role | Phone | + +------+ + PCP | Unavailable | + +------+ + Encounter Details +--------+ + + + + | Date | Type | Department | Care Team | Description | +--------+ + + + + | 10/14/ | Office | [facility] | Note, [...] as of this encounter Progress Notes Interface, Filament Tester In - 11/16/2005 3:10 AM PDTCLINIC DATE: 10/14/2000 ENDOCRINOLOGY CLINIC SUBJECTIVE: The patient returns to follow up Graves' disease status post radioactive iodine ablation. She has been off Tapazole for 3 weeks now. She continues to complain of significant difficulties with muscle cramps and pain in her back. She is not able to take nonsteroidals because of her Coumadin and unable to take Tylenol because of some elevated liver function tests. She also complains of significant difficulties with her memory and some fatigue. She denies any problems with constipation. She had significant elevation in her cholesterol from 150 to 337. She has started salmon oil for this. OBJECTIVE: VITAL SIGNS: Weight 137.9 pounds, blood pressure 120/76, and pulse 64. GENERAL: This is a pleasant middle-aged woman in no acute distress. HEENT: Extraocular movements are intact without lid lag, retraction, or stare. Face: Significant puffiness. NECK: Supple. There is no palpable lymphadenopathy. There is no palpable thyroid tissue. SKIN: Dry but abnormal thickness and is warm but does not radiate. EXTREMITIES: Reflexes are 2+ with a significantly delayed relaxation phase. LABORATORY DATA: Free T4 is 0.3 and TSH is elevated at 54. IMPRESSION: Hypothyroidism after radioactive iodine ablation for Graves' disease. Mrs. Schaeffer is now off Tapazole and remains clinically and biochemically hypothyroid, and I think this is most likely permanent. I have recommended initiation of levothyroxine in a dose of 100 mcg p.o. q.d. based on her body weight, but I have discussed with her that the dose for each patient is individualized, and we will need to assess whether this is the correct dose for her based on laboratory tests in 6 weeks. She is agreeable to having this done. I have given her a laboratory slip to have a free T4 and thyroid-stimulating hormone level rechecked in 6 weeks. Based on this, we will either continue this dose or make adjustments as indicated. I have discussed with her that this is most likely the etiology of many of her symptoms including her muscle aches, memory difficulties, fatigue, as well as her elevated cholesterol. I have recommended that she have her cholesterol rechecked at least 6 weeks after being at an euthyroid dose. This will likely take 3 months. PLAN 1. Start levothyroxine 100 mcg p.o. q.d. 2. TSH check in 6 weeks to assess if this is the correct dose for her. 3. We will dose-adjust based on those laboratories if needed. 4. I have not scheduled the followup for Mrs. Schaeffer, although we will continue to titrate her levothyroxine dose to normal TSH by phone, and then I recommend that she have this checked once per year by her primary care provider again with a goal TSH in the normal range. Of course, I will be happy to see her again if difficulties arise in titrating her dose or if there are any further questions. Oralia Self M.D. Plant Security Guard, Endocrinology [place] / HS [id number] / [id number] / [id number] / [id number] cc: Viet Shaw D.O. [address] [place] [address] Emanuel Morgan M.D. [id number] signed by Katia, Filament Tester In at 11/16/2005 3:10 AM PDTInterf patria, Filament Tester In - 11/12/2005 1:07 AM PDTCLINIC DATE: 10/14/2000 OTOLARYNGOLOGY CLINIC HISTORY: The patient follows up for her history of chronic sinusitis. She has been having a lot of pressure especially over the right maxillary areas as well as some thick crusting which occasionally drains on the back of her throat. 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 PROCEDURE: Sinus endoscopy with debridement. ANESTHESIA: Phenylephrine 1%, lidocaine 4% topical. DESCRIPTION OF PROCEDURE: A 4-mm 30-degree nasoendoscope was passed in the right nasal passage. There are large amounts of pasty brown material within the maxillary sinus and ethmoid cavity which was debrided with difficulty. The patient does appear to have some small amount of residual uncinate process noted and likely scarring over the natural ostium of the maxillary sinus. The scope was passed in the left nasal passage. The maxillary antrostomy is patent. The sinus is clear. The ethmoid cavity appears clear. ASSESSMENT: Continued problems with buildup of secretions and thick pasty material within the right maxillary and sphenoid sinuses. This may be due to some recirculation phenomenon. This is likely why she does not improve on antibiotics. However, despite increased frequency of debridement, she continues to have buildup of this material. I would like to obtain a screening CT scan of the sinus to further evaluate her anatomy. It is likely that she will be a good candidate for consideration of revision procedure to promote better clearance of the sinuses. She does, however, have additional medical problems and is anticoagulated for her prosthetic heart valve so she will need some significant preoperative evaluation. She will obtain a screening CT scan of the sinuses, and I will call her to discuss the findings. Mayra Vega M.D. Motor Assembly Supervisor, Department of Otolaryngology LES / MATTHIAS [id number] / [id number] / [id number] / C: 11/08/2000 [facility] cc: Viet Shaw M.D. [address] [place] [address] Emanuel Morgan M.D. [id number] Oralia Self M.D. [facility] Division of Endocrinology [id number] signed by Interface, Filament Tester In at 11/12/2005 1:07 AM PDTdocume nted in this encounter Plan of Treatment Not on filedocumented as of this encounter Visit Diagnoses Not on filedocumented in this encounter"
--- OUTSIDE RECORDS SUMMARY | ~2019-09-03 | XMS | Encounter Summary ---
Demographics + + + | Address | [address] | | | [place] [address] | + + + | Home Phone [...] + + + | Author | [facility] | + + + | Organization | [facility] | + + + | Address | Unknown | + + + | Phone | Unavailable | + + + Support + + + + + | Name | Relationship | Address | Phone | + + + + + | Josue Schaeffer | ECON | [address] | | | | | [place] [address] | | + + + + + | Dariana Dowling | ECON | Unknown | | + + + + + Care Team Providers + +------+ + | Care Milling Machinist Name | Role | Phone | + +------+ + | Josiah Walls MD | PCP | | + +------+ + Reason for Visit + + + | Reason | Comments | + + + | Weakness | | + + + | SOB - Shortness of | | | breath | | + + + Encounter Details +--------+ + + + + | Date | Type | Department | Care Team | Description | +--------+ + + + + | 12/24/ | Telephone | Cardiology [facility] at | Emanuel Morgan, | Weakness; SOB - | | 2009 | | [facility] [address] | MD | Shortness of breath | | | | [facility] | | | | | | Health and Healing, | | | | | | Building | | | | | | [place], [place] | | | | | | [address] | | | | | | [phone] | | | +--------+ + + + [...]
--- OUTSIDE RECORDS SUMMARY | ~2019-09-03 | XMS | Encounter Summary ---
Demographics + + + | Address | [address] | | | [place] [address] | + + + | Home Phone [...] | | | | | [place] [address] | | + + + + + | Dariana Dowling | ECON | Unknown | | + + + + + Care Team Providers + +------+ + | Care Credit Operations Processor Name | Role | Phone | + [...] as of this encounter Progress Notes Interface, Handkerchief Folder In - 09/06/2004 10:38 PM PDTClinic Date: 04/24/2003 Clinic: ADULT CARDIOLOGY CLINIC Reason For Visit: Mrs. Schaeffer is a 62-year-old woman who comes in for followup of her rheumatic heart disease. Medical Problem List 1. Rheumatic heart disease. 1.1. Mitral valve commissurotomy. 1.2. 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 1.3. Chronic warfarin therapy. 1.4. Functional class II status. 2. Hypertension which is quite labile, and she is very sensitive to antihypertensive medications. 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 4. Chronic migraines. 5. Chronic allergies. 6. Chronic swelling of the left arm as a result of surgery. 7. Hyperthyroidism, now euthyroid. Medications: Coumadin based on the INR, levothyroxine 0.44 mg daily, lisinopril which she takes on a p.r.n. basis if her blood pressure is signals elevated, Lasix 20 mg p.r.n., potassium 10 mEq with Lasix, and Zoloft 25 mg half-tablet daily. She is currently receiving a course of clindamycin and prednisone for sinus infection, and she is on multiple drugs for her allergies. Subjective: I last saw Mrs. Schaeffer in October 2002, and she seems to be about same except that she is fighting a chronic sinus infection. She is now on antibiotic therapy. She had been doing well until then she had stationary bicycle when she was riding that 15 miles a day without any difficulty. She continues to be active in her yard; however, she is somewhat limited by her multiple allergies. Her Coumadin has been well regulated; however, with the prednisone and antibiotic, she has been cutting back on her dosage. She does describe a chest discomfort at rest that she gets is bilateral. It has been going on for the last 2 weeks. She has not noticed it with activity. It does not seem to be cardiac and that it persists for a prolonged period of time. I am not sure exactly what it is. Her blood pressure is usually below 140 or 145. At home, it is mostly in the 120s to 130s. She will have occasional periods where it is markedly elevated, and then she will take the lisinopril. However, this seems to drop the blood pressure down into the low teens and she often feels a little lightheaded and dizzy. She has not been seen by anybody from Endocrinology and has not had her thyroid checked for quite a while. Physical Examination Vital Signs: Her blood pressure is elevated here as 188/94. She said she had a severe migraine headache this morning and that may be why her blood pressure is elevated. Pulse is regular at 56, oxygen saturation 99, and weight is 133. Lungs: Clear to auscultation. Cardiac: Jugular venous pressure is less than 8 cm. On auscultation, the prosthetic valve sounds are easily heard. There is a 2/6 systolic ejection murmur. No diastolic murmur. Abdomen: The abdomen is not obese nor tender. Extremities: Trace edema. Diagnostic Data: She had an echocardiogram today which showed good elevated systolic function and good hemodynamic function of her valves. Assessment: Mrs. Schaeffer is doing fine. I think we need to check a few things other than the echocardiogram which we did. Plan 1. We will get laboratory work, we will get her thyroid function, we will also check her lipid profile, and we will let her know the results of these whether any change in her medications are needed. 2. Encouraged her to remain active otherwise. 3. She will continue to monitor blood pressure and let us know if it becomes more elevated that would require additional treatment. 4. Otherwise, we will see her in 6 months' time. Emanuel Morgan M.D. EVELYN / HS [id number] / [id number] / [id number] / Tdocumented in this encounter Plan of Treatment Not on filedocumented as of this encounter Visit Diagnoses Not on filedocumented in this encounter"
--- OUTSIDE RECORDS SUMMARY | ~2019-09-03 | XMS | Encounter Summary ---
Demographics + + + | Address | [address] | | | [place] [address] | + + + | Home Phone [...] Josue Schaeffer | ECON | [address] | | | | | [place] [address] | | + + + + + | Dariana Dowling | ECON | Unknown | | + + + + + Care Team Providers + +------+ + | Care Commissioner Of Relocation Services Name | Role | Phone | + [...] | | Mitral | MD Emanuel | [facility] [address] | | | | | valve | [address] | [address] | | | | | disorders([address] | [address] | [place] | | | | | 4.0) Aortic | [place], [place] | Muse | | | | | valve | [address] | Building, [facility] | | | | | disorders | | floor | | | | | Procedures | | [place], [place] | | | | | TRANSTHORACI | | [address] | | | | | C | | Phone: | | | | | ECHOCARDIOGR | | [phone] | | | | | AM, ADULT | | | +--------+--------+ + + + + Encounter Details +--------+ + + + + | Date | Type | Department | Care Team | Description | +--------+ + + + + | 06/07/ | Hospital | Cardiac | | | | 2012 | Encounter | Non-Invasive Testing | | | | | | at [facility] [address] | | | | | | [address] [facility] | | | | | | Health and Healing, | | | | | | [address] | | | | | | [place], [place] | | | | | | [address] | | | | | | [phone] | | | +--------+ + + + [...] daily. | | | | | | [place], Suspension | | | | | | [...] | | 10 | | | Aerosol, [place] | needed. | | | | | [...] + documented as of this encounter Progress Torrie Quinonze - 06/07/2012 2:23 PM PDTTransthoracic echocardiogram was completed today. Final report to follow. documented in this encoun ter Plan of Treatment Not on filedocumented as [...] Diagnosis | + + | Mitral valve disorders(424.0) - Primary Mitral valve disorders | + + | Aortic valve disorders | + + documented in this encounter"
--- OUTSIDE RECORDS SUMMARY | ~2019-09-03 | XMS | Encounter Summary ---
Demographics + + + | Address | [address] | | | [place] [address] | + + + | Home Phone [...] + + + + + | Josue Scheaffer | ECON | [address] | | | | | [place] [address] | | + + + + + | Dariana Dowling | ECON | Unknown | | + + + + + Care Team Providers + +------+ + | Care Collections Agent Name | Role | Phone | [...] | +--------+ + + + + | 11/28/ | Documentati | Cardiology [facility] at | Camryn Lewis | Refill Request | | 2013 | on | [facility] [address] | Anila, [employer] CAPTAIN [address] | | | | | [facility] | [address], | | | | | Health and Healing, | [place] [address] | | | | | [facility] | [phone] | | | | | [place], [place] | | | | | | [address] | | | | | | [phone] | | | +--------+ + + + [...]
--- OUTSIDE RECORDS SUMMARY | ~2019-09-03 | XMS | Encounter Summary ---
Demographics + + + | Address | [address] | | | [place] [address] | + + + | Home Phone [...] Josue Schaeffer | ECON | [address] | | | | | [place] [address] | | + + + + + | Dariana Dowling | ECON | Unknown | | + + + + + Care Team Providers + +------+ + | Care Restaurant Kitchen And Service Manager Name | Role | Phone | [...] | +--------+ + + + + | 01/01/ | Telephone | Cardiology General | Emanuel Morgan, | Other | | 2009 | | at [facility] [address] | | | | | | [facility] | | | | | | Health and Healing, | | | | | | Building | | | | | | Floor [place], [place] | | | | | | [address] | | | | | | [phone] | | | +--------+ + + + [...]
--- OUTSIDE RECORDS SUMMARY | ~2019-09-03 | XMS | Encounter Summary ---
Demographics + + + | Address | [address] | | | [place] [address] | + + + | Home Phone | | + + + | Preferred Language | Unknown | + + + | Marital Status | Single | + + + | Jain Affiliation | [id number] | + + + | Race | Unknown | + + + | Ethnic Group | Unknown | + + + Author + + + | Author | [facility] | | | and [place] | + + + | Organization | [facility] | | | and [place] [...] Providers + +------+ + | Care Director Oncology Name | Role | Phone | + [...] | Baldemar DO 56 | [address] | | | | | CARDIO CARE | [address] | [place], | | | | | Procedures | [place] | [place] | | | | | AUTOMOBILE [employer]IC MOTOR - NEEDS | [place], [place] | [address] | | | | | IC/THR APPT | [address] | Phone: | | | | | | Phone: | [phone] | | | | | | [phone] | Fax: | | | | | | Fax: | [phone] | | | | | | [phone] | | +--------+--------+ + + + + Encounter Details +--------+---------+ + + + | Date | Type | Department | Care Team | Description | +--------+---------+ + + + | 07/14/ | Office | [facility] | OlegarioradhadonavanGodwin, | Pacemaker | | 2019 | Visit | CARDIOLOGY [address] [place] | reprogramming/check | | | | [place], | [address], | (Primary Dx); | | | | [place] [address] | [place] [address] | Coronary artery | | | | [phone] | [phone] | disease, angina | | | | | | presence | | | | | | unspecified, | | | | | | unspecified vessel | | | | | | or lesion type, | | | | | | unspecified whether | | | | | | reno-sparks or | | | | | | [...] he art disease. Patient recently removed to [place], [place], from [place]. She had history for pacemaker implantation [...] St. Theo mitral valve on 12/10/94 at [facility] by Ihsan Carias M.D. B. Echocardiogram on 09/30/1999 shows normal left ventricular size and systolic function, m echanical valves in mitral and aortic position with normal forward velocities and no evidenc e of significant regurgitation. mild mitral regurgitation cannot be ruled out. At [facility] C. Echocardiogram on 10/18/2001 shows normal left ventricular size and systolic function, a ortic and mitral mechanical prosthesis with good hemodynamic function; disc motion is presen t. By Emanuel Morgan M.D. at [facility] D. Echocardiogram on 02/06/11 shows Left ventricular [...] for comparison. By Bandar Tucker MD at [facility]. E.Echocardiogram on 01/13/12 shows, the study was [...] significant change. By Bandar Tucker MD at [facility] F. Echocardiogram on 12/29/12 shows the cardiac [...] (+/- 5). By Markie Mathur MD at [facility] J. Patient recently removed to [place], [place], from [place]. She had history for pacem leroy implantation on 02/08/15. Patient also has history of aortic valve replacement. K. Today, patient is feeling good. Patient is physically active by walking but does not h ave an exercise regimen. There is no signs and symptoms of overt congestive heart failure. He is in a class I of [place] [employer] functional class.There is no fluid retenti on on physical examination. 2. Tachycardia-Bradycardia syndrome. A. Successful implantation of a loop recorder on 11/08/09 at [facility] B. Successful explanation of a implantable loop recorder on 01/01/10 at [facility] C. S/P Pacemaker implantation 02/08/2015 D. Pace [...] reviewed and edited this note. Regla Lilly, Email Marketing Intern 07/14/2018 I, Godwin Elmore MD, personally performed the services described in this documentation, as scribed in my presence and it is both accurate and complete. Regla Lilly Email Marketing Intern 07/14/2018 14:17 Electronically signed by: Godwin Elmore MD [facility] 07/14/2018 Portions of this chart may have been created with [employer] voice recognition software. Occasi onal wrong-word or [...] whether | | | | | | reno-sparks or | | | | | | [...] MD | | | | | | ([id number]) on 07/14/2018 | | | | | [...] + + | Performing | Address | City/State/[facility] | Phone Number | | Organization | [...] or lesion | | type, unspecified whether reno-sparks or transplanted heart | + + | Pacemaker, Dual Chamber [employer] 06/24/2015 Dr. Markie Mathur Cardiac pacemaker in | | situ | + + | Tachycardia-bradycardia syndrome (HCC) Sinoatrial node dysfunction | + + documented in this encounter
--- OUTSIDE RECORDS SUMMARY | ~2019-09-03 | XMS | Encounter Summary ---
Demographics + + + | Address | [address] | | | [place] [address] | + + + | Home Phone [...] Josue Schaeffer | ECON | [address] | | | | | [place] [address] | | + + + + + | Dariana Dowling | ECON | Unknown | | + + + + + Care Team Providers + +------+ + | Care Compensation Intern Name | Role | Phone | + +------+ + PCP | Unavailable | + +------+ + Reason for Visit + + + | Reason | Comments | + + + | Physical examination | | + + + Office Visit [...] | | | | | [address] | | | | | | URGENT [facility]ARE | [place], [place] | | | | | | [address] | [address] | | | | | | [place] | | | | | | | [place], | | | | | | | [place] [address] | | | | | | | Phone: | | | | | | | [phone] | | | | | | | Fax: | | | | | | | [phone] | | +--------+--------+ + + + + Encounter Details +--------+---------+ + + + | Date | Type | Department | Care Team | Description | +--------+---------+ + + + | 11/15/ | Office | Cardiology [facility] at | Emanuel Morgan, | Palpitations | | 2007 | Visit | [facility] [address] | | (Primary Dx); | | | | [facility] | | Hypothyroid; Mitral | | | | [facility] and Healing, | | valve disorder | | | | Building | | [address]; RADIOLOGICAL EQUIPMENT SPECIALIST | | | | Floor [place], [place] | | ANTICOAGULATION | | | | [address] | | V58.61; Aortic valve | | | | [phone] | | disorder 424.1 | +--------+---------+ + + + Social History [...] + + + | Blood Pressure | 132/76 | 11/16/2007 12:20 PM | | | | | PDT | | + + + + + | Pulse | 91 | 11/16/2007 12:20 PM | | | | | PDT | | + + + + + | Temperature | - | - | | + + + + + | Respiratory Rate | - | - | | + + + + + | Oxygen Saturation | 98% | 11/16/2007 12:20 PM | | | | | PDT | | + + + + + | Inhaled Oxygen | - | - | | | Concentration | | | | + + + + + | Weight | 62.4 kg (137 lb 9.6 | 11/16/2007 12:20 PM | | | | oz) | PDT | | + + + + + | Height | 166.4 cm (5' 5.5") | 11/16/2007 12:20 PM | | | | | PDT | | + + + + + | Body Mass Index | 22.55 | 11/16/2007 12:20 PM | | | | | PDT | | + + + + + documented in this encounter Patient Instructions Patient Instructions Emanuel Morgan - 11/16/2007 1:54 PM PDT1. General Information. Physician Information: Emanuel Morgan M.D. Division of Cardiovascular Medicine [place] [address] Email: [email or web address] Web Site: [email or web address] Office: [phone] After hours: [phone] and ask to speak to the physician taking calls for cardiology. Appointments: [phone] Nurse (for questions, requests, or to provide information): Malka Rosado, RN: [phone]. If your call is long distance, dial the toll-free number of . This will conn ect you to an [facility] plant operator control room operator who can connect you to the number or person that you want. 2. Recommend that INR range between 3.0-3.5 since you have 2 mechanical valves. 3. Continue to take lasix 40 mg daily as needed for the edema. 4. Return appointment in 6 months. 1 :55 PM PDT documented in this encounter Progress Notes Emanuel Morgan - 11/17/2007 5:20 PM PDTFormatting of this note might be different from faina palomo. CARDIOLOGY RETURN VISIT Maria Alejandra Schaeffer is a 67 y.o. female who returns for the evaluation of her valvular heart dis ease. Referring Provider/PCP: Josiah Walls Cardiac Problem list/risk factors: 1. Rheumatic heart disease. 1.1. Mitral valve commissurotomy. 1.2. 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 1.3. Chronic warfarin therapy. 1.4. Functional class II status but not necessarily related to her heart. 1.5 Increasing edema 2. Hypertension, controlled. 3. Chronic migraines. 4. [...] Fluticasone Propionate (FLONASE) 50 mcg/Actuation Nasal Aerosol, [place] 2 sprays in am a nd pm Garlic 1,000 mg Oral Capsule 2 capsules daily LASIX 20 MG TAB take 1 tablet (20mg) by oral route once daily Lecithin 1,200 mg Oral Tablet, Chewable once daily Levothyroxine Sodium 25 mcg Oral Tablet take 1 tab in morning Lisinopril 5 mg Oral Tablet once daily [...] Clarification needed, Adhesive tape and Codeine Subjective: Mrs Schaeffer is concerned as the past month she has had to increase her diuretic use due to wor sening peripheral edema and abdominal bloating. She was taking 20 mg lasix and has increase d to 40 mg daily. She has occasionally taken 60 mg daily. When she doesn't have the extra fluid, she feels her exercise capacity is stable and at a good level. She walks on the [place] fine, does shopping and housework, and other activities of daily living. She does get dys pneic with hills, but this is a chronic state. When she has the edema, she feels more makenna rgic. She denies chest discomfort, unusual dyspnea, arrhythmias, lightheadedness or syncope . Her warfarin dose is stable and she has not had any bleeding. Her thyroid dose is stable , but she is uncertain when her last measure of TFS was. Her weight is stable. Review of System: See attached flow sheet. Physical Exam: Vitals: BP 132/76 | Pulse 91 | Ht 1.664 m (5' 5.5") | Wt 62.415 kg (137 lb 9.6 oz) | SpO2 98% GENERAL: Well appearing, no acute distress. HEENT: WNL LUNGS: Clear to auscultation. CV: Estimated JVP is <8 cm. Carotid upstrokes are normal; No bruits. Regular rhythm. PMI is in the 5th ICS at MCL. Mechanical valve sounds with a 2/6 FERNANDO at the base. No rubs or gallops. ABDOMEN: No tenderness, active bowel sounds. No hepatic or splenic enlargement or tenderne ss. EXTREMITIES: Pulses are +2 symmetrical. No edema. SKIN: No cyanosis. ECHO: (today). Normal LV size and function. 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 Labs: Lab Results Lab Test Name Results Date/Time WBC 6.1 11/16/07 HB 12.8 11/16/07 HCT 37.6 11/16/07 PLT 189 11/16/07 MCV 90.5 11/16/07 RDW 13.9 11/16/07 NA 139 11/16/07 K 3.9 11/16/07 CL 107 11/16/07 BICARB 27 11/16/07 BUN 13 11/16/07 CR 0.89 11/16/07 GLU 75 11/16/07 CA 9.4 11/16/07 TSH 5.60 11/16/07 Assessment: Rheumatic heart disease with good function of both mechanical valves and normal LV systolic function. Normal RV systolic pressure at 30-35 mmHg. Normal IVC. No signs of right or le ft heart failure. CBC and CMP are all reasonable. TSH is at upper limits of normal so it i s unlikely that this is due to hypothyroidism. I am not certain what is causing her increas ing edema. She is taking a low dose of lasix, so I think it is reasonable for her to contin ue to take the lasix 40 mg daily and continue to follow her. Plan: 1. Increase lasix to 40 mg daily. Take a KCl or K rich foods. 2. RTC in 6 months for re-evaluation. 3. Recommend INR at 3.0-3.5 with 2 mechanical valves. oldie Bashir - 11/16/2007 2:43 PM PDTThe patient was screened for the following contraindications to influenza vaccin e and responses were as follows: Febrile illness today? No Allergy to eggs? No Prior history of a reaction to flu vaccine? No Prior history of Guillain-Nogal syndrome? No Consulted with regarding positive responses. None. documented in this encoun ter Plan of Treatment +------+------+--------+ + + | Name | Type | Priori | Associated Diagnoses | Order Schedule | | | | ty | | | +------+------+--------+ + + | TSH | Lab | Routin | Palpitations | Ordered: 11/16/2007 | | | | e | Hypothyroid | | +------+------+--------+ + + documented as of this encounter Procedures + +--------+ + + + | Procedure Name | Priori | Date/Time | Associated Diagnosis | Comments | | | ty | | | | + +--------+ + + + | EJECTION FRACTION | Routin | 11/16/2007 | | Results for this | | | e | 9:43 AM | | procedure are in the | | | | PDT | | results section. | + +--------+ + + + | LAB REPORTS | | 10/05/2007 | | Results for this | | | | 12:00 AM | | procedure are in the | | | | PDT | | results section. | + +--------+ + + + documented in this encounter Results CH - INR (PROTHROMBINTIME) (11/16/2007 2:15 PM PDT) [...] | + + + + + | [facility] | [address] | [place] [address] | | | PATHOLOGY | [address] | | | + + + + + | [facility] | [address] | [place] [address] | | | PATHOLOGY | [address] | | | + + + + + EJECTION FRACTION (11/16/2007 9:43 AM PDT) + + + + + [...] + | [facility] | [address] | [place], [place] | | | CARDIOLOGY | [address] [facility] | [address] | | + + + + + | [facility] | [address] | [place], [place] | | | CARDIOLOGY | [address] | [address] | | + + + + + LAB REPORTS (10/05/2007 12:00 AM PDT) + + + | Narrative | Performed At | + + + | | | + + + + + | Procedure Note | + + | Poli Grubbs - 10/05/2007 12:00 AM PDT | + + documented in this encounter Visit Diagnoses + + | Diagnosis | + + | Palpitations - Primary | + + | Hypothyroid Unspecified hypothyroidism | + + | Mitral valve disorder 424.0 Mitral valve disorders | + + | ALF ANTICOAGULATION V58.61 Long-term (current) use of anticoagulants | + + | Aortic valve disorder 424.1 Aortic valve disorders | + + documented in this encounter
--- OUTSIDE RECORDS SUMMARY | ~2019-09-03 | XMS | Encounter Summary ---
Demographics + + + | Address | [address] | | | [place] [address] | + + + | Home Phone | | + + + | Preferred Language | Unknown | + + + | Marital Status | | + + + | Jain Affiliation | VANDA | + + + | Race | White | + + + | Ethnic Group | Not or | + + + Author + + + | Author | [facility] | + + + | Organization | [facility] | + + + | Address | Unknown | + + + | Phone | Unavailable | + + + Support + + + + + | Name | Relationship | Address | Phone | + + + + + | Josue Schaeffer | ECON | [address] | | | | | [place] [address] | | + + + + + | Dariana Dowling | ECON | Unknown | | + + + + + Care Team Providers + +------+ + | Care Geographic Information Systems Manager Name | Role | Phone | [...] Description | +--------+--------+ + + + | 08/16/ | Refill | Cardiology [facility] at | Camryn Lewis | Refill Request | | 2013 | | [facility] [address] | [facility] [employer] | | | | | [facility] | [facility], | | | | | Health and Healing, | [place] [address] | | | | | [facility] | [phone] | | | | | [place], [place] | | | | | | [address] | | | | | | [phone] | | | +--------+--------+ + + + [...]
--- OUTSIDE RECORDS SUMMARY | ~2019-09-03 | XMS | Encounter Summary ---
Demographics + + + | Address | [address] | | | [place] [address] | + + + | Home Phone [...] + + + | Author | [facility] | + + + | Organization | [facility] | + + + | Address | Unknown | + + + | Phone | Unavailable | + + + Support + + + + + | Name | Relationship | Address | Phone | + + + + + | Josue Schaeffer | ECON | [address] | | | | | [place] [address] | | + + + + + | Dariana Dowling | ECON | Unknown | | + + + + + Care Team Providers + +------+ + | Care Payroll Processor Name | Role | Phone | + +------+ + PCP | Unavailable | + +------+ + Reason for Visit + + + | Reason | Comments | + + + | Refill Request | | + + + Encounter Details +--------+--------+ + + + | Date | Type | Department | Care Team | Description | +--------+--------+ + + + | 11/24/ | Refill | Cardiology - | Emanuel Morgan, | Refill Request | | 2005 | | General [address] | MD | | | | | [address] | | | | | | Mailcode: [id number] | | | | | | [facility] | | | | | | [address] [place], | | | | | | [place] [address] | | | | | | [phone] | | | +--------+--------+ + + + [...]
--- OUTSIDE RECORDS SUMMARY | ~2019-09-03 | XMS | Encounter Summary ---
Demographics + + + | Address | [address] | | | [place] [address] | + + + | Home Phone [...] Josue Schaeffer | ECON | [address] | | | | | [place] [address] | | + + + + + | Dariana Dowling | ECON | Unknown | | + + + + + Care Team Providers + +------+ + | Care Critical Systems Technician Name | Role | Phone | + +------+ + | Josiah Walls MD | PCP | | + +------+ + Reason for Visit +--------+ + | Reason | Comments | +--------+ + | Other | missed appointment | +--------+ + Encounter Details +--------+ + + + + | Date | Type | Department | Care Team | Description | +--------+ + + + + | 05/13/ | Telephone | Cardiology [facility] at | Emanuel Morgan, | Other (missed | | 2011 | | [facility] [address] | | appointment) | | | | [facility] | | | | | | Health and Healing, | | | | | | [facility] | | | | | | [place], [place] | | | | | | [address] | | | | | | [phone] | | | +--------+ + + + [...]
--- OUTSIDE RECORDS SUMMARY | ~2019-09-03 | XMS | Encounter Summary ---
Demographics + + + | Address | [address] | | | [place] [address] | + + + | Home Phone | | + + + | Preferred Language | Unknown | + + + | Marital Status | | + + + | Restoration Affiliation | VANDA | + + + [...] Josue Schaeffer | ECON | [address] | | | | | [place] [address] | | + + + + + | Dariana Dowling | ECON | Unknown | | + + + + + Care Team Providers + +------+ + | Care Lead Military Analyst Name | Role | Phone | + +------+ + PCP | Unavailable | + +------+ + Encounter Details +--------+ + + + + | Date | Type | Department | Care Team | Description | +--------+ + + + + | 04/13/ | Procedure - | Dig[facility] | Record, Operation | Operative Report | | 1995 | | Center at [facility] [address] | | | | | Transcribed | [address] [facility] | | | | | | for Health and | | | | | | [facility] [address] | | | | | | [place], [place] | | | | | | [address] | | | | | | [phone] | | | +--------+ + + + [...] + + | OPERATION RECORD | | 04/14/1995 | | Results for this | | | | 12:00 AM | | procedure are in the | | | | PST | | results section. | + +--------+ + + + documented in this encounter Results OPERATION RECORD (04/14/1995 12:00 AM PST) + + | Procedure Note | + + | 04/14/1995 12:00 AM [facility] | | [facility] | | [address] [place], [place] [address] | | [facility] | | | | OPERATION RECORD | | | | Med Rec No.: [id number] Date: 04/14/95 | | | | Name: CarterMaria Alejandra dalton Adelita | | | | | | ATTENDING SURGEON: Maxwell Garcia M.D. 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 | | | | OPERATION(S) PERFORMED: Bilateral intranasal ethmoidectomies with | | two bilateral sphenoidotomies. | | Bilateral natural ostium meatal windows plus | | an inferior antral meatal window on the | | left. | | | | SPECIMEN(S) REMOVED: The specimens were into right and | | left sides, and a culture was taken from the | | mucosa of the left maxillary sinus. | | | | ANESTHESIA: General. | | | | INDICATIONS: This 45-year-old white female has had a long | | history of nasal polyps and reactive airway | | disease. She has had | | previous polypectomies and has had a recurrence, with complete opacification | | of both ethmoids and partial opacification with air-fluid levels of both | | maxillary sinuses, post sphenoid sinuses and a partial opacification of the | | left frontal sinus. She also had severe cardiac disease and in January had | | bilateral valve replacement. She has been on anticoagulation and that this | | has been reversed so that she can now go ahead with the sinus surgery. | | | | FINDINGS: At the time of surgery, there was extensive | | nasal polyps involving the ethmoids and | | sphenoids. Thickened mucosa | | in the maxillary sinuses, worse on the left than on the right. | | | | PROCEDURE: The patient was taken to the Operating Room | | and placed in the supine position. After | | satisfactory general endotracheal | | anesthesia had been obtained, the patient was prepared and draped in the | | usual sterile fashion. The nose was injected with 1% Xylocaine with | | 1:100,000 Adrenalin and packed with Afrin-soaked cottonoids. | | | | Attention was turned to the left sinus. The uncinate process was visualized | | and incised and removed with a blunt sickle knife. It was removed with the | | Shilpi forceps, exposing the middle meatus and the bulla which were | | opened. Using the Lucy with a 4 mm full radius shaver, polyps were | | removed from the middle meatus and the middle and posterior ethmoid cells | | extending anteriorly toward the agar nasi cells. The middle turbinate was | | preserved at this point. When this had been removed, the cells were opened | | further with Blakesley-Mary Kate forceps. The patient's sphenoid was identified | | with the sucker and an opening made. The patient's sphenoid was taken down | | with a 90-degree Kerrison, opening the sinus widely. There was some | | polypoid mucosa present which was removed, and most of the mucosa was left | | intact in the sphenoid sinus. | | | | Using the 90-degree Kerrison and starting at the roof of the sphenoid, the | | posterior ethmoid cells and polypoid mucosa was removed anteriorly to the | | agar nasi cell area. Using a long up-biting Blakesley-Mary Kate, one could | | reach in to the agar nasi cells starting at the level of the attachment in | | the middle turbinate and remove thickened polypoid mucosa and cellular bone. | | When this had been removed, a ball-end seeker and a curved sucker were used | | to identify the nasofrontal duct. The nasofrontal duct appeared to be | | present but it was not easy to open this up widely to make sure that we were | | into it. It was examined with the telescope and it looked like there was a | | tract of intact mucosa going into the frontal sinus. This was irrigated | | with saline and a small amount of polypoid tissue which was then removed. | | | | The floor of the ethmoids posteriorly was taken down. Using the 30-degree | | telescope and a seeker and a curved sucker, the natural ostium was | | identified. This was enlarged with straight and backbiting forceps on a | | universal handpiece, and the inferior portion of the window was taken down | | farther with the Stammberger biting forceps until there was a window that | | was approximately 1 cm in diameter. The mucosa tended to pull away from the | | posterior wall of the roof slightly and it took a little bit of effort to | | make sure that all this mucosa was removed, along with some polypoid tissue | | that was in the gildardo cells to make a smooth opening into the maxillary | | sinus. Using the 30-degree and 70-degree telescope, one could see into the | | sinus; the mucosa was relatively thickened with some polypoid changes in the | | floor. There was no mucopus seen. However, because of the thickened mucosa | | and the findings on x-ray, it was elected to do an inferior meatal window. | | The inferior turbinate was fractured medially, exposing the lateral wall of | | the inferior meatus. Using a 45-degree curet, the sinus was entered and the | | opening was enlarged with a straight-biting forceps on a universal handpiece | | until it was approximately 1 cm in diameter. Again, the Stammberger forceps | | were used to take the floor down slightly. One could then see into the | | sinus quite nicely, and there was some really thickened mucosa along the | | floor of the sinus. Using up-biting Blakesley-Mary Kate forceps, this tissue | | was biopsied and sent for culture. It was elected not to strip the mucosa | | | | out of it. | | | | The sinus was packed with half-inch gauze soaked in saline as well as the | | turbinate cells. The agar nasi cells had a large amount of polypoid tissue | | which was opened with the up-biting Blakesley-Mary Kate forceps. Again, a | | combination of ball-end seeker and curved sucker were used to enter the | | frontal sinus. On this side with the 70-degree telescope, it appeared that | | we were into the sinus. There was a small amount of mucoid drainage which | | was aspirated. | | | | Attention was turned to the natural ostium window which was identified with | | the 30-degree telescope and the ball-end seeker. This was enlarged with the | | back-biting and forward and back-biting forceps until it was about 1 cm in | | diameter. Again, the Stammberger forceps were used to take down the | | inferior wall to the level of the attachment of the inferior turbinate. The | | mucosa in the intramaxillary sinus actually looked quite normal. The gildardo | | cells were opened. On both sides, the middle turbinate was quite floppy and | | it was elected to trim it to within about 1 cm of its attachment. This was | | done with the turbinate scissors and removed to its most posterior portion. | | The posterior attachment of the middle turbinate on both sides was further | | removed with the hummer. This left a nice wide-open ethmoid cavity and good | | access to the natural ostium windows. | | | | The ethmoid sinus and the patient's sphenoid were lined with Oxycel cotton | | and Bactroban was used to hold this in place. A second piece was placed | | between the inferior turbinate on the septum. The oxycel cotton was used | | because of the need to re-anticoagulate the patient as soon as possible. | | | | The patient was returned to the Post Anesthesia Care Unit in good condition. | | The estimated blood loss was 150 cc. | | | | | | | | | | Maxwell Garcia M.D. | | Professor, Otolaryngology | | Head and Neck Surgery | | MALIA/sussy | | | | A | | | | cc: | | | + + documented in this encounter Visit Diagnoses Not on filedocumented in this encounter"
--- OUTSIDE RECORDS SUMMARY | ~2019-09-03 | XMS | Clinical Summary ---
Demographics + + + | Address | [address] | | | [place] [address] | + + + | Home Phone | | + + + | Preferred Language | Unknown | + + + | Marital Status | | + + + | Scientology Affiliation | VANDA | + + + | Race | White | + + + | Ethnic Group | Not or | + + + Author + + + | Author | NON REVENUE LOCATIONS | + + + | Organization | NON REVENUE LOCATIONS | + + + | Address | Unknown | + + + | Phone | Unavailable | + + + Support + + + + + | Name | Relationship | Address | Phone | + + + + + | Josue Schaeffer | ECON | [address] | | | | | [place] [address] | | + + + + + | Dariana Dowling | ECON | Unknown | | + + + + + Care Team Providers + +------+ + | Care Staff Radiation Therapist Name | Role | Phone | + +------+ + | Enoc Lee NP | PCP | | + +------+ + Source Comments [facility] is fully live on both [facility] Allergies + + + + + + | Active Allergy | Reactions | Severity | Noted | Comments | | | | | Date | | + + + + + + | Adhesive Tape | | | 12/09/18 | | | | | | 95 | | + + + + + + | Aspirin | | | 04/12/18 | LT.SIDE WENT NU | | | | | 96 | | + + + + + + | Clarification Needed | | | 12/09/18 | EES, HORSE HAIR, | | | | | 95 | EKG PATCHES | + + + + + + | Codeine | Tachycardia | | 11/16/19 | | | | | | 08 | | + + + + + + | Atorvastatin | | | 12/29/19 | Muscle | | [...] | | + + + +---------+------+------+-------+ | VITAMIN B COMPLEX | 1200 mg daily | | 0 | | | Activ | | OR | | | | | | e | + + + +---------+------+------+-------+ | Lecithin 1,200 mg | once daily | | 0 | | | Activ | | Oral Tablet, | | | | | | e | | Chewable | | | | | | | + + + +---------+------+------+-------+ | Garlic 1,000 mg | 2 capsules daily | | 0 | | | Activ | | Oral Capsule | | | | | | e | + + + +---------+------+------+-------+ | VITAMIN E OR | 1 tablet daily | | 0 | | | Activ | | | | | | | | e | + + + +---------+------+------+-------+ | ZOLOFT 50 mg Oral | 1/2 tablet daily | | 0 | | | Activ | | Tablet | | | | | | e | + + + +---------+------+------+-------+ | COD LIVER OIL OR | 1 capsule daily | | 0 | | | Activ | | | | | | | | e | + + + +---------+------+------+-------+ | VITAMIN C 1,000 mg | 1 tablet daily | | 0 | | | Activ | | Oral Tablet | | | | | | e | + + + +---------+------+------+-------+ | XANAX 2 mg Oral | 1/4 tablet at night | | 0 | | | Activ | | Tablet | as needed | | | | | e | + + + +---------+------+------+-------+ | CALCIUM + D OR | (1200 mg calcium and | | 0 | | | Activ | | | 500mg vitamin D) 1 | | | | | e | | | tablet daily | | | | | | + + + +---------+------+------+-------+ | salsalate 500 mg | takes 1 tablet per | | 0 | | | Activ | | Oral Tablet | week | | | | | e | + + + +---------+------+------+-------+ | GUAIFENESIN | Take 1 Tab by mouth | | 0 | 04/1 | | Activ | | (MUCINEX ORAL) | as needed. | | | 3/20 | | e | | | | | | 11 | | | + + + +---------+------+------+-------+ | fluticasone | Instill 2 Sprays | | 0 | | | Activ | | (FLONASE) 50 | into each nostril | | | | | e | | mcg/Actuation Nasal | once daily. | | | | | | | Newberry, Suspension | | | | | | | + + + +---------+------+------+-------+ | warfarin 5 mg Oral | Take 5 mg by mouth | | 0 | | | Activ | | Tablet | once daily. Take 7.5 | | | | | e | | | mg on Wednesday and [...] | clinic | | | | | | + + + +---------+------+------+-------+ | albuterol 90 | Inhale 2 Puffs every | 1 | 2 | 11/2 | | Activ | | mcg/Actuation | four hours as | Inhaler | | 9/20 | | e | | Inhalation HFA | needed. | | | 10 | | | | Aerosol Inhaler | | | | | | | + + + +---------+------+------+-------+ | sodium chloride | Instill 2 Sprays | 50 mL | 2 | 11/2 | | Activ | | 0.65 % Nasal | into each nostril as | | | 9/20 | | e | | Aerosol, Newberry | needed. | | | 10 | | | + + + +---------+------+------+-------+ | MECLIZINE HCL | Take by mouth. (10 | | 0 | | | Activ | | (MECLIZINE ORAL) | mg tablet) 1/2 | | | | | e | | | tablet twice daily | | | | | | | | as needed | | | | | | + + + +---------+------+------+-------+ | | Inhale 1 Puff as | | 0 | | | Activ | | fluticasone-salmeter | needed. | | | | | e | | ol 100-50 mcg/dose | | | | | | | | Inhalation Disk with | | | | | | | | Device | | | | | | | + + + +---------+------+------+-------+ | cholecalciferol, | Take 2,000 Units by | | 0 | | | Activ | | Vitamin D3, (VITAMIN | mouth once daily. | | | | | e | | D3) 2,000 unit Oral | | | | | | | | capsule | | | | | | | + + + +---------+------+------+-------+ | GLUCOSAMINE | Take 2,000 mg by | | 0 | | | Activ | | SULFATE (GLUCOSAMINE | mouth. | | | | | e | | ORAL) | | | | | | | + + + +---------+------+------+-------+ | ezetimibe (ZETIA) | Take 10 mg by mouth | | 0 | | | Activ | | 10 mg Oral tablet | once daily. | | | | | e | + + + +---------+------+------+-------+ | POTASSIUM CHLORIDE | Take by mouth. | | 0 | | | Activ | | (KLOR-CON 10 ORAL) | | | | | | e | + + + +---------+------+------+-------+ | levothyroxine 50 | Take 50 mcg by mouth | | 0 | | | Activ | | mcg Oral tablet | once daily. | | | | | e | + + + +---------+------+------+-------+ | | Take by mouth. | | 0 | | | Activ | | METHYLSULFONYLMETHAN | | | | | | e | | E (MSM ORAL) | | | | | | | + + + +---------+------+------+-------+ | furosemide 10 mg | Take 10 mg by mouth | | 0 | | | Activ | | Oral tablet | once daily. | | | | | e | + + + +---------+------+------+-------+ | lisinopril 5 mg | Take 1 tablet by | 90 | 1 | 11/08 | | Activ | | Oral tablet | mouth once daily. | tablet | | 07/28 | | e | | | | | | 13 | | | + + + +---------+------+------+-------+ | bumetanide 0.5 mg | Take 1 tablet by | 30 | 2 | /0 | | Activ | | oral tablet | mouth once daily. 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 | + + + | Mitral valve disorder | | + + + + + | Overview: <PROVIDER>APARNA PATY | | <MODIFIER>mechanical valve replace v43.3 | | | | ICD10 | + + + +---+ | Aortic valve disorder | | + +---+ + + | Overview: <PROVIDER>APARNA PATY | | <MODIFIER>mechanical valve replace v43.3 | | | | ICD10 | + + + +---+ | intermodal 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 | + + Last Filed Vital Signs + [...] Health Maintenance | Due Date | Last Done | Comments | + + + + + | Pneumococcal | | 01/01/2008 | | | vaccination (2 of 2 | 9 | | | | - PCV13) | | | | + + + + + | Influenza (Flu) | | | | | vaccination (#1) | 9 | | | + + + + + Results Not on filefrom Last 3 Months Insurance + +--------+ +--------+ + +--------+ | Payer | Benefi | Subscriber | Effect | Phone | Address | Type | | | t Plan | ID | [id number] | | | | | | / | | Dates | | | | | | Group | | | | | | + +--------+ +--------+ + +--------+ | MEDICARE | MEDICA | xxxxxxxxxx | 08/09/19 | [phone] | [address] | Medica | | | RE A & | | 07-Pre | [phone] | | | [address] | | sent | | [address] | | | | | | | | [phone] | | + +--------+ +--------+ + +--------+ | COMMERCIAL | INDIVI | [id number] | 08/09/19 | | | Indemn | | INDIVIDUAL | DUAL | | 07-Pre | | | ity | | | COMMER | | sent | | | | | | CIAL | | | | | | + +--------+ +--------+ + +--------+ + +--------+ +--------+ + + | Guarantor Name | Accoun | Relation to | Date | Phone | Billing Address | | | t Type | Patient | of | | | | | | | | | | + +--------+ +--------+ + + | Maria Alejandra Schaeffer F | Person | Self | [birth year] | [address] [place] | | | al/Fam | | 1941 | [phone] | [place] [address] | | | allen | | | 8 (Home) | | + +--------+ +--------+ + + Advance Directives + + + + + | Type | Date Recorded | Patient | Explanation | | | | Mock Up Assembler | | + + + + + | Advance | | | | | Directives and | | | | | Living Will | | | | + + + + + | Power of | | | | | Motor Grader Operator | | | | + + + + + + + + + + | Code Status | Date | Date | Comments | | | Activated | Inactivated | | + + + + + | YAMILKA/EUGENE | 12/28/2009 | 01/07/2010 | | | | 12:03 AM | 6:54 PM | | + + + + + + + + +---+ | | | | | + + + +---+ | Full Code | 11/08/2009 | 11/08/2009 | | | | 10:55 AM | 10:17 PM | | + + + +---+
--- OUTSIDE RECORDS SUMMARY | ~2019-09-03 | XMS | Encounter Summary ---
Demographics + + + | Address | [address] | | | [place] [address] | + + + | Home Phone [...] Josue Schaeffer | ECON | [address] | | | | | [place] [address] | | + + + + + | Dariana Dowling | ECON | Unknown | | + + + + + Care Team Providers + +------+ + | Care Welder Production Line Arc Name | Role | Phone | + +------+ + | Josiah Walls MD | PCP | | + +------+ + Encounter Details +--------+ + + + + | Date | Type | Department | Care Team | Description | +--------+ + + + + | 04/13/ | Results | LAB CORE [address] | Other, Faculty | | | 1995 | Only | [address] | [phone] | | | | | [place], [place] | | | | | | [address] | | | | | | [phone] | | | +--------+ + + + [...] + | SURGICAL PATHOLOGY | Routin | 04/14/1995 | | Results for this | | | e | | | procedure are in the | | | | | | results section. | + +--------+ + + + documented in this encounter Results SURGICAL PATHOLOGY (04/14/1995) + + + + + + | [...] with | | | | | | chronic sinusitis, | | | | | | diffuseintranasal | | | | | | ethmoid and maxillary | | | | | | polyposis, and mucosal | | | | | | thickening,with no pus. | | | | | | GROSS | | | | | | DESCRIPTIONTwo specimens | | | | | | are received in | | | | | | formalin labeled as | | | | | | follows: #1 LEFT | | | | | | ETHMOID CONTENTS: It | | | | | | consists of multiple | | | | | | pink to brownfragments | | | | | | of soft tissue and bone | | | | | | measuring 3.7 x 2.5 x | | | | | | 1.5 cm. inaggregate. | | | | | | Gunstock Spray Unit Feeder | | | | | | sections are submitted | | | | | | in cassette 1, | | | | | | withdecalcification | | | | | | requested. #2 | | | | | | RIGHT ETHMOID SINUS | | | | | | CONTENTS: It consists of | | | | | | multiple | | | | | | pink-tanfragments of | | | | | | soft tissue and bone | | | | | | measuring 3 x 3.5 x 2 | | | | | | cm. inaggregate. | | | | | | Gunstock Spray Unit Feeder | | | | | | sections are submitted | | | | | | in cassette 2. All | | | | | | tissue sections taken | | | | | | are submitted for | | | | | | microscopic | | | | | | evaluation.Case dictated | | | | | | by: Janice Earl, | | | | | | M.D./ FINAL | | | | | | DIAGNOSISSPECIMENS | | | | | | LABELED LEFT AND RIGHT | | | | | | ETHMOID SINUS CONTENTS: | | | | | | CHRONIC ALLERGIC | | | | | | SINUSITIS Case | | | | | | reviewed by Darrell Billy, | | | | | | M.D.t:04/16/95:cc | | | | | | My electronic signature | | | | | [...] | + + + + + | [facility] | [address] | [place] [address] | | | PATHOLOGY | [address] | | | + + + + + documented in this encounter Visit Diagnoses Not on filedocumented in this encounter"
--- OUTSIDE RECORDS SUMMARY | ~2019-09-03 | XMS | Encounter Summary ---
Demographics + + + | Address | [address] | | | [place] [address] | + + + | Home Phone [...] Josue Schaeffer | ECON | [address] | | | | | [place] [address] | | + + + + + | Dariana Dowling | ECON | Unknown | | + + + + + Care Team Providers + +------+ + | Care Sustainability Engineer Name | Role | Phone | + +------+ + PCP | Unavailable | + +------+ + Encounter Details +--------+ + + + + | Date | Type | Department | Care Team | Description | +--------+ + + + + | 04/23/ | Results | Cardiac General Farm Manager | Emanuel Morgan, | | | 2003 | Only | at [facility] [address] | | | | | [address] | | | | | | [facility], [address]th | | | | | | Floor [place], [place] | | | | | | [address] | | | | | | [phone] | | | +--------+ + + + [...] + | FREE T4 | Routin | 04/24/2003 | | Results for this | | | e | 3:40 PM | | procedure are in the | | | | PST | | results section. | + +--------+ + + + | TSH | Routin | 04/24/2003 | | Results for this | | | e | 3:40 PM | | procedure are in the | | | | PST | | results section. | + +--------+ + + + documented in this encounter Results FREE T4, SERUM (04/24/2003 3:40 PM PST) + + + + + + | Component | Value | Ref Range | Performed | Pathologist | | | | | At | Signature | + + + + + + | FREE T4, | 1.0Comment: Test | 0.7 - 1.8 ng/dL | | | | SERUM | performed by [facility] | | | | | | [facility] | | | | | | [facility]. | | | | + + + + + + + + | Specimen | + + | | + + + + + + + | Performing | Address | City/State/Zipcode | Phone Number | | Organization | | | | + + + + + | [facility] | [address] | [place] [address] | | | LABORATORY | | | | + + + + + TSH-THYROID STIM HORMONE (04/24/2003 3:40 PM PST) + + + + + + | Component | Value | Ref Range | Performed | Pathologist | | | | | At | Signature | + + + + + + | TSH | 1.70Comment: Test | 0.28 - 5.00 | | | | | performed by [facility] | [facility] | | | | | [facility] | | | | | | [facility]. | | | | + + + + + + + + | Specimen | + + | | + + + + + + + | Performing | Address | City/State/Zipcode | Phone Number | | Organization | | | | + + + + + | [facility] | [address] | [place] [address] | | | LABORATORY | | | | + + + + + documented in this encounter Visit Diagnoses Not on filedocumented in this encounter"
--- OUTSIDE RECORDS SUMMARY | ~2019-09-03 | XMS | Encounter Summary ---
Demographics + + + | Address | [address] | | | [place] [address] | + + + | Home Phone [...] Josue Schaeffer | ECON | [address] | | | | | [place] [address] | | + + + + + | Dariana Dowling | ECON | Unknown | | + + + + + Care Team Providers + +------+ + | Care Steam Table Attendant Name | Role | Phone | + +------+ + | Josiah Walls MD | PCP | | + +------+ + Encounter Details +--------+------+ + + + | Date | Type | Department | Care Team | Description | +--------+------+ + + + | 05/21/ | Lab | Laboratory at [facility] | | Mitral valve | | 2010 | | [address] | | disorder 424.0; | | | | [facility] | | Aortic valve | | | | and Healing, | | disorder 424.1 | | | | [address] | | | | | | [place], [place] | | | | | | [address] | | | | | | [phone] | | | +--------+------+ + + + [...] | + +--------+ + + + | [facility] | Routin | 05/21/2010 | Mitral valve | Results for this | | FINGERSTICK | e | 9:47 AM | disorder 424.0 | procedure are in the | | | | PDT | Aortic valve | results section. | | | | | disorder 424.1 | | + +--------+ + + + documented in this encounter Results [facility] - INR (PROTHROMBINTIME) (05/21/2010 9:47 AM PDT) + + + + + + | Component | Value | Ref Range | Performed | Pathologist | | | | | At | Signature | + + + + + + | [facility] | 4.2 (H)Comment: PT | 0.9 - [...] | + + + + + | [facility] DEPARTMENT OF | [address] | [place] [address] | | | PATHOLOGY | [address] | | | + + + + + documented in this encounter Visit Diagnoses + + | Diagnosis | + + | Mitral valve disorder 424.0 Mitral valve disorders | + + | Aortic valve disorder 424.1 Aortic valve disorders | + + documented in this encounter"
--- OUTSIDE RECORDS SUMMARY | ~2019-09-03 | XMS | Encounter Summary ---
Demographics + + + | Address | [address] | | | [place] [address] | + + + | Home Phone | | + + + | Preferred Language | Unknown | + + + | Marital Status | | + + + | Bahai Affiliation | VANDA | + + + | Race | White | + + + | Ethnic Group | Not or | + + + Author + + + | Author | [facility] | + + + | Organization | [facility] | + + + | Address | Unknown | + + + | Phone | Unavailable | + + + Support + + + + + | Name | Relationship | Address | Phone | + + + + + | Josue Miles | ECON | [address] | | | | | [place] [address] | | + + + + + | Dariana Dowling | ECON | Unknown | | + + + + + Care Team Providers + +------+ + | Care Gas Plant Dispatcher Name | Role | Phone | + +------+ + PCP | Unavailable | + +------+ + Encounter Details +--------+ + + + + | Date | Type | Department | Care Team | Description | +--------+ + + + + | 09/29/ | Procedure - | UNKNOWN DEPARTMENT | Other, Faculty | ECHO (ARELY or TTE) | | 1999 | | [address] [facility] | [phone] | | | | Transcribed | [address] | | | | | | [place], [place] | | | | | | [address] | | | +--------+ + + + [...] this encounter Progress Notes Other, Faculty - 09/30/1999 12:00 AM PDTAssociated Order(s): TRANSTHORACIC ECHOCARDIOGRAM, ADULT [facility] DATE: 09/30/99 [place], [place] MED REC NO: [id number] NAME: MARIA ALEJANDRA MILES ECHOCARDIOGRAPHY REPORT BIRTHDATE: [birth year] CARDIAC QUERY: [facility]-M[facility] UNIT: OP STUDY NO: [id number] TAPE NO. [id number] REF. : HENRIETTA--L-462 FRAME NO. 1:40:10-END TECH: MICHAEL HT: 165.10 CM WT: 63.20 M-MODE:MM 2-D MEASUREMENT LVID (D)45.0 IVS (D)11.0 LVPW (D) 8.0 2D & DOPPLER INTERPRETATION STUDY QUALITY: GOOD 1. CHAMBERS: NORMAL LEFT VENTRICULAR SIZE WITH NORMAL SYSTOLIC FUNCTION. WALL MOTION IS NORMAL. NORMAL RIGHT VENTRICULAR SIZE AND SYSTOLIC FUNCTION. LEFT AND RIGHT ATRIAL SIZES ARE AT THE UPPER LIMITS OF NORMAL. AORTIC ROOT SIZE IS NORMAL. 2. 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 TRICUSPID VALVE IS NORMAL. PULMONIC VALVE IS NOT WELL SEEN. 3. DOPPLER/COLOR FLOW: FORWARD FLOW VELOCITIES ARE NORMAL. NORMAL PROSTHETIC FORWARD VELOCITY ACROSS THE AORTIC AND MITRAL VALVES. 4. PERICARDIUM: NO PERICARDIAL EFFUSION NOTED. 5. IMPRESSIONS: NORMAL LEFT VENTRICULAR SIZE AND SYSTOLIC FUNCTION. MECHANICAL VALVES IN MITRAL AND AORTIC POSITION WITH NORMAL FORWARD VELOCITIES AND NO EVIDENCE OF SIGNIFICANT REGURGITATION. MILD MITRAL REGURGITATION CANNOT BE RULED OUT. DB MYA DEL ANGEL M.D. DEBI FIERRO M.D. FELLOW PARTICIPATED IN REVIEW OF THIS STUDY WITH THE STAFF PATIENT SERVICES COORDINATOR. documented in this encou nter Plan of Treatment Not on filedocumented as of this encounter Procedures + +--------+ + + + | Procedure Name | Priori | Date/Time | Associated Diagnosis | Comments | | | ty | | | | + +--------+ + + + | TRANSTHORACIC | | 09/30/1999 | | Results for this | | ECHOCARDIOGRAM, | | 12:00 AM | | procedure are in the | | ADULT | | PDT | | results section. | + +--------+ + + + documented in this encounter Results TRANSTHORACIC ECHOCARDIOGRAM, ADULT (09/30/1999 12:00 AM PDT) + + | Procedure Note | + + | Other, Faculty - 09/30/1999 12:00 AM [facility] DATE: | | 09/30/99 [place], [place] [facility] REC NO: [id number] NAME: MARIA ALEJANDRA MILES | | ECHOCARDIOGRAPHY REPORT BIRTHDATE: [birth year] CARDIAC QUERY: [facility]-M[facility] UNIT: OP | | STUDY NO: [id number] TAPE [place]. [id number] REF. : HENRIETTA--[id number] FRAME NO. 1:40:10-END TECH: | | MICHAEL HT: 165.10 CM WT: 63.20 | | M-MODE:MM | | 2-D MEASUREMENT | | LVID (D)45.0 | | IVS (D)11.0 LVPW (D) 8.0 | | 2D & | | DOPPLER INTERPRETATION | | STUDY | | QUALITY: GOOD 1. CHAMBERS: NORMAL LEFT VENTRICULAR SIZE WITH NORMAL SYSTOLIC FUNCTION. | | WALL MOTION IS NORMAL. NORMAL RIGHT VENTRICULAR SIZE AND SYSTOLIC FUNCTION. LEFT AND | | RIGHT ATRIAL SIZES ARE AT THE UPPER LIMITS OF NORMAL. AORTIC ROOT SIZE IS NORMAL. 2. 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 TRICUSPID | | VALVE IS NORMAL. PULMONIC VALVE IS NOT WELL SEEN. 3. DOPPLER/COLOR FLOW: FORWARD FLOW | | VELOCITIES ARE NORMAL. NORMAL PROSTHETIC FORWARD VELOCITY ACROSS THE AORTIC AND MITRAL | | VALVES. 4. PERICARDIUM: NO PERICARDIAL EFFUSION NOTED. 5. IMPRESSIONS: NORMAL LEFT | | VENTRICULAR SIZE AND SYSTOLIC FUNCTION. MECHANICAL VALVES IN MITRAL AND AORTIC POSITION | | WITH NORMAL FORWARD VELOCITIES AND NO EVIDENCE OF SIGNIFICANT REGURGITATION. MILD MITRAL | | REGURGITATION CANNOT BE RULED OUT. DB MYA DEL ANGEL M.D. | | DEBI FIERRO M.D. FELLOW PARTICIPATED IN REVIEW OF THIS STUDY WITH THE STAFF | | PATIENT SERVICES COORDINATOR. | | FUNCTION. WALL MOTION IS NORMAL. NORMAL RIGHT VENTRICULAR | | SIZE AND SYSTOLIC FUNCTION. LEFT AND RIGHT ATRIAL SIZES ARE AT | | THE UPPER LIMITS OF NORMAL. AORTIC ROOT SIZE IS NORMAL. | | | | 2. VALVES: AORTIC AND MITRAL MECHANICAL PROSTHESIS (RICE | | DOUGHERTY) IS PRESENT. TRICUSPID VALVE IS NORMAL. PULMONIC | | VALVE IS NOT WELL SEEN. | | | | 3. DOPPLER/COLOR FLOW: FORWARD FLOW VELOCITIES ARE NORMAL. | | NORMAL PROSTHETIC FORWARD VELOCITY ACROSS THE AORTIC AND MITRAL | | VALVES. | | | | 4. PERICARDIUM: NO PERICARDIAL EFFUSION NOTED. | | | | 5. IMPRESSIONS: NORMAL LEFT VENTRICULAR SIZE AND SYSTOLIC | | FUNCTION. MECHANICAL VALVES IN MITRAL AND AORTIC POSITION WITH | | NORMAL FORWARD VELOCITIES AND NO EVIDENCE OF SIGNIFICANT | | REGURGITATION. MILD MITRAL REGURGITATION CANNOT BE RULED OUT. | | | | | | DB | | | | MYA DEL ANGEL M.D. | | DEBI FIERRO M.D. | | | | FELLOW PARTICIPATED IN REVIEW OF THIS STUDY WITH THE STAFF PATIENT SERVICES COORDINATOR. | | | | | + + documented in this encounter Visit Diagnoses Not on filedocumented in this encounter"
--- OUTSIDE RECORDS SUMMARY | ~2019-09-03 | XMS | Encounter Summary ---
Demographics + + + | Address | [address] | | | [place] [address] | + + + | Home Phone | | + + + | Preferred Language | Unknown | + + + | Marital Status | Single | + + + | Advent Affiliation | 1064 | + + + | Race | Unknown | + + + | Ethnic Group | Unknown | + + + Author + + + | Author | [facility] | | | and [place] | + + + | Organization | [facility] | | | and [place] | + + + | Address | Unknown | + + + | Phone | Unavailable | + + + Support + + +---------+ + | Name | Relationship | Address | Phone | + + +---------+ + | Jsoue Schaeffer | ECON | Unknown | | + + +---------+ + Care Team Providers + +------+ + | Care Weekend Caregiver Name | Role | Phone | [...] | 08/01/ | Telephone | [facility] | Tessy Elmore, | Numbness | | 2019 | | CARDIOLOGY [address] | [address] | | | | | [place], | [place], | | | | | [place] [address] | [place] [address] | | | | | [phone] | [phone] | | | | | | | [...]
--- OUTSIDE RECORDS SUMMARY | ~2019-09-03 | XMS | Encounter Summary ---
Demographics + + + | Address | [address] | | | [place] [address] | + + + | Home Phone | | + + + | Preferred Language | Unknown | + + + | Marital Status | | + + + | Advent Affiliation | VANDA | + + + [...] Josue Schaeffer | ECON | [address] | | | | | [place] [address] | | + + + + + | Dariana Dowling | ECON | Unknown | | + + + + + Care Team Providers + +------+ + | Care Casting Associate Name | Role | Phone | + +------+ + PCP | Unavailable | + +------+ + Encounter Details +--------+ + + + + | Date | Type | Department | Care Team | Description | +--------+ + + + + | 01/05/ | Office | General Internal | Note, Outpatient | Progress Note | | 1994 | Visit-Trans | Medicine [address] | Clinic | | | | yovani | [address] | | | | | | Mailcode: [id number] | | | | | | Outpatient Clinic | | | | | | [facility], [address] | | | | | | [place], [place] | | | | | | [address] | | | | | | [phone] | | | +--------+ + + + [...] as of this encounter Progress Notes Interface, Digital Designer In - 05/17/2006 3:12 AM PDT CLINIC DATE: 01/05/95 CARDIOLOGY CLINIC: Mrs. Schaeffer returns to Cardiology Clinic today for follow-up status post aortic and mitral valve replacement which was performed on 12/10/94 at which time her aortic valve was replaced with a [address] Theo aortic valve and her mitral valve replaced with a [address] Theo mitral valve. She did well postoperatively and, despite some hypertension and atrial arrhythmias in the early postoperative period, has done well since. She has diuresed a substantial amount in the interim since being discharged on the 16 of November. She is being followed in the Anticoagulation Clinic with her protimes. Her shortness of breath has remarkably recovered since her early hospitalization dyspnea. She denies paroxysmal nocturnal dyspnea, orthopnea, or chest pain. MEDICATIONS: Lanoxin 0.25 mg q. d. Premarin 0.9 mg, 1/2 tablet q. d. Coumadin as per the Anticoagulation Clinic and Hydralazine 10 mg t.i.d. Ventolin inhalers. She is also being started on Amoxicillin for her nasal polyps and sinusitis and she has been instructed to check with the Anticoagulation Clinic because of this medication change. PHYSICAL EXAMINATION: Vital Signs: Blood pressure 138/84, pulse 100 and regular. There was an occasional premature atrial beat. Weight 118 pounds. Neck: Veins were not distended. Lungs: Clear to auscultation. Cardiovascular: [place] prosthetic valve sounds without gallop. There was a grade II/ systolic ejection murmur heard along the left sternal border. No diastolic murmurs appreciated. No diastolic rumble was heard at the apex. Abdomen: No splenomegaly. Liver is slightly tender but nonpulsatile. Extremities: No edema. ASSESSMENT/PLAN: Mrs. Schaeffer appears to be doing quite well since her aortic and mitral valve replacements and is well on her way to recovery, it seems. We will stop her Hydralazine because she has not been hypertensive and hopefully will not be so in the future and she will check her blood pressure to make sure that this is so off the Hydralazine. We will also stop her Digoxin since her valvular lesions have been fixed and hopefully she will not be susceptible in the future to atrial arrhythmias. She will keep her Digoxin dose medication at home, however, and should atrial fibrillation with rapid ventricular response occur, she will reinstitute that medication but not without calling me first. We have scheduled her for return clinic appointment in three months time. Gorge Rao M.D. Professor, Medicine Division of Cardiology RW /p A cc: Ihsan Carias M.D. Professor, Surgery Chief, Division of Cardiopulmonary Surgery [facility] documented in this encounter Plan of Treatment Not on filedocumented as of this encounter Visit Diagnoses Not on filedocumented in this encounter"
--- OUTSIDE RECORDS SUMMARY | ~2019-09-03 | XMS | Encounter Summary ---
Demographics + + + | Address | [address] | | | [place] [address] | + + + | Home Phone | | + + + | Preferred Language | Unknown | + + + | Marital Status | | + + + | Baptist Affiliation | VANDA | + + + [...] | | | | | [place] [address] | | + + + + + | Dariana Dowling | ECON | Unknown | | + + + + + Care Team Providers + +------+ + | Care Solar Sales Representative And Assessor Name | Role | Phone | + +------+ + PCP | Unavailable | + +------+ + Encounter Details +--------+ + + + + | Date | Type | Department | Care Team | Description | +--------+ + + + + | 03/28/ | Procedure - | Vascular Surgery | Lab, Vascular | Vascular | | 1997 | | at [facility] [address] | | | | | Transcribed | [address] | | | | | | [facility] [place], | | | | | | [address]nd Floor | | | | | | [place], [place] | | | | | | [address] | | | | | | [phone] | | | +--------+ + + + [...] | + +--------+ + + + | VASCULAR FLOW | | 03/28/1997 | | Results for this | | IMAGING, NONCARDIAC | | 12:00 AM | | procedure are in the | | - VASC LAB | | PST | | results section. | + +--------+ + + + documented in this encounter Results VASCULAR FLOW IMAGING, NONCARDIAC (03/28/1997 12:00 AM PST) + + | Procedure Note | + + | 03/28/1997 12:00 AM PST | | VASCULAR LAB DATE: 03/28/97 | | | | Referring Physician: Emanuel Kathleen M.D. | | | | Examination: Cerebrovascular | | | | Clinical Indications: Recent TIAs | | | | Findings: Right arm blood pressure is 148, left arm blood pressure is 152. | | There are no cervical bruits. Carotid pulses are normal bilaterally. There | | is no left radial pulse. Duplex scanning shows minimal plaque in both | | carotid bifurcations. No spectral abnormalities are noted. Both vertebral | | arteries are patent with antegrade flow. | | | | Impression: Mildly abnormal cerebrovascular exam. 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 There is no evidence of carotid artery stenosis. | | | | | | | | | | | | | | | | | | | | | | | | | | | | | | | | | | Neo Gatica Jr., MD | | | | LMT/lh | | | | P | | cc: | | | + + documented in this encounter Visit Diagnoses Not on filedocumented in this encounter"
--- OUTSIDE RECORDS SUMMARY | ~2019-09-03 | XMS | Encounter Summary ---
Demographics + + + | Address | [address] | | | [place] [address] | + + + | Home Phone [...] Josue Schaeffer | ECON | [address] | | | | | [place] [address] | | + + + + + | Dariana Dowling | ECON | Unknown | | + + + + + Care Team Providers + +------+ + | Care Floater Operator Name | Role | Phone | [...] | +--------+ + + + + | 09/13/ | Telephone | Cardiology [facility] at | Emanuel Morgan, | Palpitations | | 2009 | | [facility] [address] | | | | | | [place] [facility] | | | | | | Health and Healing, | | | | | | Building | | | | | | Floor [place], [place] | | | | | | [address] | | | | | | [phone] | | | +--------+ + + + [...]
--- OUTSIDE RECORDS SUMMARY | ~2019-09-03 | XMS | Encounter Summary ---
Demographics + + + | Address | [address] | | | [place] [address] | + + + | Home Phone [...] + | Author | [facility] | | | and [place] | + + + | Organization | [facility] | | | and [place] | + + + | Address | Unknown | + + + | Phone | Unavailable | + + + Support + + +---------+ + | Name | Relationship | Address | Phone | + + +---------+ + | oJsue Schaeffer | ECON | Unknown | | + + +---------+ + Care Team Providers + +------+ + | Care Fire Alarm Technician Name | Role | Phone | + +------+ + PCP | Unavailable | + +------+ + Encounter Details +--------+ + + + + | Date | Type | Department | Care Team | Description | +--------+ + + + + | 05/01/ | [facility] | [facility] | | | | 1997 | Encounter | MED CTR XRAY [address] | | | | | | [place] | | | | | | [place] [address] | | | | | | [phone] | | | +--------+ + + + [...]
--- OUTSIDE RECORDS SUMMARY | ~2019-09-03 | XMS | Encounter Summary ---
Demographics + + + | Address | [address] | | | [place] [address] | + + + | Home Phone [...] Josue Schaeffer | ECON | [address] | | | | | [place] [address] | | + + + + + | Dariana Dowling | ECON | Unknown | | + + + + + Care Team Providers + +------+ + | Care Carburetor Rebuilder Name | Role | Phone | + +------+ + PCP | Unavailable | + +------+ + Encounter Details +--------+ + + + + | Date | Type | Department | Care Team | Description | +--------+ + + + + | 10/12/ | Procedure - | UNKNOWN DEPARTMENT | Summary, Cardiac | CARDIAC EVENT | | 2006 | | [address] | | MONITOR SUMMRY RPT | | | Transcribed | [address] | | | | | | [place], [place] | | | | | | [address] | | | +--------+ + + + [...] | + +--------+ + + + | 30 DAY CARDIAC | | 10/12/2006 | | Results for this | | MONITOR - ECG | | 12:00 AM | | procedure are in the | | | | PDT | | results section. | + +--------+ + + + documented in this encounter Results 30 DAY SURVEYING TECHNICIAN - ECG (10/12/2006 12:00 AM PDT) + + | Procedure Note | + + | 10/12/2006 12:00 AM PDT | | [id number] 10/12/2006 10/12/2006 [id number] | | [id number] GINGER Ureña [id number] | | | | Date: 10/12/2006 | | | | Referring Provider: Emanuel Morgan M.D. | | | | Referring Prov. Address: | | | | Monitoring Date Range: 10/12/2006 to 11/11/2006 | | | | Number of events interpreted: 1 | | | | | | Interpretation and Findings: | | | | The rhythm is sinus with premature ventricular contractions. | | | | | | | | | | | | | | Signed: Date: | | George Webb M.D. | | | | [id number]/[id number] | | | | A | | | | cc: | | | | Electronically signed by George Webb 11-19-2006 11:29:49 AM | | | | | + + documented in this encounter Visit Diagnoses Not on filedocumented in this encounter"
--- OUTSIDE RECORDS SUMMARY | ~2019-09-03 | XMS | Encounter Summary ---
Demographics + + + | Address | [address] | | | [place] [address] | + + + | Home Phone [...] Josue Schaeffer | ECON | [address] | | | | | [place] [address] | | + + + + + | Dariana Dowling | ECON | Unknown | | + + + + + Care Team Providers + +------+ + | Care Assistant Finance Manager Name | Role | Phone | [...] | +--------+ + + + + | 11/11/ | Telephone | Cardiology | Mayra Ivy, | Lab findings, | | 2009 | | Arrhythmia at [facility] | [employer]TE [employer]IGHTER REPAIRER | teaching, guidance, | | | | [address] | | and counseling | | | | [facility] | | | | | | and Healing, | | | | | | [facility] | | | | | | [place], [place] | | | | | | [address] | | | | | | [phone] | | | +--------+ + + + [...] + + | INR | Routin | 11/11/2009 | | Results for this | | | e | | | procedure are in the | | | | | | results section. | + +--------+ + + + documented in this encounter Results INR (11/11/2009) + +---------+ + + + | Component | Value | Ref Range | Performed | Pathologist | | | | | At | Signature | + +---------+ + + + | INR | 1.7 (A) | 0.98 - 1.08 INR | [...]
--- OUTSIDE RECORDS SUMMARY | ~2019-09-03 | XMS | Encounter Summary ---
Demographics + + + | Address | [address] | | | [place] [address] | + + + | Home Phone [...] Josue Schaeffer | ECON | [address] | | | | | [place] [address] | | + + + + + | Dariana Dowling | ECON | Unknown | | + + + + + Care Team Providers + +------+ + | Care Naval Architect Name | Role | Phone | + +------+ + PCP | Unavailable | + +------+ + Encounter Details +--------+ + + + + | Date | Type | Department | Care Team | Description | +--------+ + + + + | 12/17/ | Discharge | Allergy Clinic at | Summary, Discharge | D/C Summary ODDS | | 1994 | Summary-Tra | [facility] [address] | | | | | nscribed | [address] | | | | | | [address] | | | | | | [address] | | | | | | [place], [place] | | | | | | [address] | | | | | | [phone] | | | +--------+ + + + [...] as of this encounter Discharge Summaries Interface, Filter Bed Placer In - 05/17/2006 3:12 AM PDT [address] [address] [facility] MEDICAL SUMMARY OF HOSPITALIZATION Med Rec No.: [id number] Admission Date: 12/09/94 Name: Maria Alejandra Schaeffer Discharge Date: 12/17/94 STAFF PHYSICIAN: Ihsan Carias M.D. 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 PRINCIPAL PROCEDURE: Aortic and mitral valve replacement. REASON FOR ADMISSION: The patient is a 54-year-old female who, on a recent preoperative evaluation for a nasal polyp incision was found to have increased symptomatic valve insufficiency. 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 She is status post mitral valve commissurotomy in July 1976. At that time, she was found to have significant mitral stenosis which was relieved with commissurotomy. More recently, she has had increasing shortness of breath and orthopnea and difficulty walking up stairs secondary to shortness of breath. HOSPITAL COURSE: On 12/10/94, she underwent aortic and mitral valve replacement. At that time, her aortic valve was replaced with a 19-mm HP St. Theo aortic valve. The mitral valve was replaced with a 27-mm St. Theo mitral valve. She did well postoperatively and was transferred to the inpatient pack from the Intensive Care Unit on 12/14/94. She was started on Coumadin, and her dose was adjusted. Arrangements were made for comprehensive followup for her Coumadin while she is in the area and when she returns home. CONDITION ON DISCHARGE: Good. DISCHARGE MEDICATIONS: 1. Coumadin 5 mg by mouth once a day. 2. Digoxin 0.25 mg by mouth once a day. 3. Hydralazine 20 mg by mouth three times a day. 4. Vicodin one to two by mouth every four hours as needed for pain. DISCHARGE INSTRUCTION(S): The patient has been given comprehensive instructions for her rehabilitation to include no driving for two months and no heavy lifting for three months. She will resume her regular diet and has been instructed to walk every day. Christopher Kate M.D. Resident, Cardiovascular Surgery Ihsan Carias M.D. Professor, Surgery Chief, Division of Cardiopulmonary Surgery [place]IL[place] /adelia P cc: CARTER MCGRATH MD [id number] [facility] [id number] documented in this encounter Plan of Treatment Not on filedocumented as of this encounter Visit Diagnoses Not on filedocumented in this encounter"
[2019-09-03] MEDS ORDERED: WARFARIN SODIUM5 MG PO (07:47)
[2019-09-03] MEDS ORDERED: VENTOLIN HFA18 GM INH (07:47)
[2019-09-03] MEDS ORDERED: LEVOTHYROXINE75 MCG PO (07:47)
[2019-09-03] MEDS ORDERED: EZETIMIBE10 MG PO (07:47)
[2019-09-03] MEDS ORDERED: ADVAIR 250-501 EACH INH (07:48)
[2019-09-03] MEDS ORDERED: SERTRALINE HCL25 MG PO (07:48)
[2019-09-03] MEDS ORDERED: METOPROLOL SUCC25 MG PO (07:48)
--- NOTE | 2019-09-04 16:32 | EKG ---
[facility] [address] [facility] [place], [place] [address] Signed Atrial-paced rhythm ST \T\ T wave abnormality, consider inferior ischemia ST \T\ T wave abnormality, consider anterolateral ischemia Abnormal ECG No previous ECGs available Confirmed by BEBETO GARCIA MD ([id number]) on 09/04/2019 4:31:55 PM Electronically Signed By: BEBETO GARCIA MD 09/04/19 1632 PATIENT NAME: MELE MILES Electrocardiogram DATE OF : 42 PHYSICIAN: BEBETO GARCIA MD REPORT #: [id number] REPORT IS CONFIDENTIAL AND NOT TO BE RELEASED WITHOUT AUTHORIZATION
--- NOTE | 2019-09-04 16:56 | CONS ---
[facility] [address] [place], [place] [address] Signed DATE OF CONSULTATION: 09/03/2019 REQUESTING PHYSICIAN: Bebeto Garcia MD PROBLEM: Melena and possible bowel obstruction. HISTORY OF PRESENT ILLNESS: This 79-year-old white woman was chronically anticoagulated with Coumadin. She began having trouble (today is Wednesday) with mid abdominal pain and some nausea and some vomiting. She did regurgitate some dark blood she says. She thought that she had "food poisoning" related to a TV dinner she ate. Her pain has been rather persistent, constant and although not severe, definitely troublesome. She had increased abdominal distention previously, which has somewhat resolved or at least is improved. She has since had two melenic stools what it sounds. She presented to the emergency room where she was evaluated by Dr. Donnelly. Her INR was considered to be 4.1 one week ago. The patient manages her own Coumadin dosing for the indication of implanted mechanical heart valve, both aortic and mitral and is known to have atrial fibrillation as well as pacemaker for which she is completely dependent. Her target INR is between 3.5 and 4.5. His evaluation for the patient was for complaints of abdominal pain and inability to tolerate oral intake. Notably, her INR was obtained showing market elevation to 9.4. She was noted to have an elevated white count of 14,000, hematocrit decreased to 33. She was admitted by Dr. Garcia to the intensive care unit for further management. The patient recounts that she does have pain though it is not severe and does not currently have nausea, vomiting. She does feel "thirsty." Her vital signs since admission show blood pressure of 116/44 with a pulse of 67, O2 saturation on room air is 97%. PAST MEDICAL HISTORY: Includes no prior gastrointestinal bleeding that she is aware of. She has had a colonoscopy a number of years ago, which was said to be normal. She denies any prior history of abdominal surgery. She did undergo a transvaginal hysterectomy in the past. She has reactive airways disease, hypothyroidism, mood disorder, and hyperlipidemia. She has had three pacemakers current one working well for presumed sick sinus syndrome. 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 MEDICATIONS: Her current medications include warfarin 5 mg daily, albuterol inhaler, Synthroid, Electronically Signed By: DAWNA CHACON MD 09/04/19 1656 PATIENT NAME: MELE MILES CONSULTATION DATE OF : 42 REPORT #: [id number] PHYSICIAN: DAWNA CHACON MD PCP: Chinmay You DO REPORT IS CONFIDENTIAL AND NOT TO BE RELEASED WITHOUT AUTHORIZATION [facility] [address] [place], [place] [address] Signed sertraline, metoprolol, fluticasone, ezetimibe. LABORATORY DATA: Review of her lab shows an elevated creatinine of 1.27. Her albumin is 3.8, protime 75 with an INR of 9.4, white count of 13.9, hematocrit of 32.8 with platelets of 183,000. CT scan was performed, which shows significant thickening of the duodenum and proximal jejunum extending to the midline where there appears to be a transition point. Good vascularity is noted in the dilated segment thus less likely to be that of an ischemic problem. There is some left renal atrophy of bilateral renal cortical thickening, likely related to underlying vasculopathy. REVIEW OF SYSTEMS: She denies any shortness of breath or chest pain. Has had no dysphagia or dysuria. Has had melena at least twice and possibly upper bleeding x1. She does have some central abdominal pain, less so than in the past and less distention than previously. SOCIAL HISTORY: She is . They live on [address] in a house they bought in the relatively recent past. Her is 82 years old and does a lot of work at their home in renovations. 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 PHYSICAL EXAMINATION: GENERAL: This is a pleasant white woman, who does not look systemically toxic. VITAL SIGNS: Pulse is 63, blood pressure is 116/44, O2 saturation is 97% on room air, temperature is 97.4. NECK: Shows no thyromegaly or cervical adenopathy. Trachea is midline. CHEST: Shows normal respiratory excursion. HEART: Clinically regular on monitor. ABDOMEN: Nondistended. She does have central abdominal tenderness. There is no ascites. EXTREMITIES: Show no clubbing, cyanosis, or edema. LABORATORY STUDIES: As previously noted. ASSESSMENT AND PLAN: I have reviewed the CT scan in detail as well as reviewed the report and reviewed it also with Dr. Garcia. Indeed, she does seem to have a proximal jejunal and duodenal dilation with an area that appears to be a transition point in the central midline. She has no abdominal wall incision to suggest laparotomy and admits only to a transvaginal hysterectomy in the past. Nevertheless, an obstructive process is highly probable and may be the source of gastrointestinal bleeding as well. Electronically Signed By: DAWAN CHACON MD 09/04/19 6752 PATIENT NAME: MELE MILES CONSULTATION DATE OF : 42 REPORT #: [id number] PHYSICIAN: DAWNA CHACON MD PCP: Chinmay You DO REPORT IS CONFIDENTIAL AND NOT TO BE RELEASED WITHOUT AUTHORIZATION [facility] [address] [place], [place] [address] Signed It would be best if the patient did not have oral intake at this time as has been ordered; will make the patient n.p.o. A nasogastric tube might even be beneficial, though she has not had any nausea, vomiting since being admitted to the hospital. We are rightfully slightly reticent to passing a nasogastric tube with her INR of 9.1 as traumatic injury even trivial could cause persistent gastrointestinal bleeding of the esophagus, nasopharynx or elsewhere, and therefore we will hold off on that for now. It is highly probable she will need operative intervention for the obstructive process. We are mindful of patient's limitations for excessive medical interventions as she so states. I have discussed with Dr. Garcia a consideration for reversal of the INR with vitamin K and initiation of a heparin drip, which can be readily altered anticipating possible intervention to include remedy of the abdominal possible obstruction. This will be initiated promptly. The possibility of a more proximal gastrointestinal source of bleeding and coincidental small-bowel obstruction is rather unlikely, though not impossible of course. A consideration for upper endoscopy might be made if though I think it would be unlikely benefit unless the idea of a more proximal ulcerative and bleeding problem was considered more likely as her situation evolves. I discussed all this with the patient. She understands and agrees to this approach at this time. MD DOMINGO Munoz/DELANEY /[id number] cc: MD Viet Woo DO Copies: BEBETO GARCIA MD, ARIAN DO ~ Electronically Signed By: DAWNA CHACON MD 09/04/19 1656 PATIENT NAME: MELE MILES CONSULTATION DATE OF : 42 REPORT #: [id number] PHYSICIAN: DAWNA CHACON MD PCP: Chinmay You DO REPORT IS CONFIDENTIAL AND NOT TO BE RELEASED WITHOUT AUTHORIZATION
--- NOTE | 2019-09-06 11:46 | OR ---
[facility] [address] [place], [place] [address] Signed DATE OF OPERATION: 09/04/2019 SURGEON: Dawna Chacon MD PREOPERATIVE DIAGNOSES: 1. Melena with decreased hematocrit of 23.6. 2. Excessive anticoagulation, on Coumadin (corrected), now on heparin infusion. 3. History of aortic and mitral valve replacements. 4. Recent proximal jejunal small bowel obstruction (resolution on subsequent films and clinical followup). POSTOPERATIVE DIAGNOSIS: Normal upper endoscopy. PROCEDURE: Upper endoscopy. ANESTHESIA: Intravenous sedation, propofol infusion; Dawna Crawley CRNA INDICATIONS: This 79-year-old white woman has a complex past medical history. She is admitted by Dr. Garcia with melena and decreasing hematocrit ultimately to 23. She is also chronically anticoagulated with Coumadin for aortic valve and mitral valve replacements in the past, and was also known to have a pacemaker. She was excessively anticoagulated with an INR of 9.1, this has been corrected with vitamin K and infusion of heparin for systemic anticoagulation has been initiated. She had what appeared to be a bowel obstruction in the proximal jejunal area, which clinically seems to have resolved overnight and with verification by plain abdominal x-ray. As she has been noted to have significant anemia, requiring transfusion, upper endoscopy was still recommended to assess for a peptic source of her blood loss. She understands the risks of bleeding, infection, and perforation and wished to proceed. FINDINGS: Esophagus, stomach, and duodenum were essentially normal. There was a Schatzki's ring in the distal esophagus, but was not the source of bleeding in any way. No biopsies were obtained in deference to her systemic anticoagulation with heparin at this time. DESCRIPTION OF PROCEDURE: The patient was brought to the endoscopy suite and placed in lateral decubitus position Electronically Signed By: DAWNA CHACON MD 09/06/19 1146 PATIENT NAME: MELE MILES OPERATIVE REPORT DATE OF : 42 REPORT #: [id number] PHYSICIAN: DAWNA CHACON MD PCP: Chinmay You DO REPORT IS CONFIDENTIAL AND NOT TO BE RELEASED WITHOUT AUTHORIZATION [facility] [address] [place], [place] [address] Signed given intravenous sedation with propofol infusional technique, full cardiopulmonary monitoring. A bite block was placed were left in place. An Olympus video upper endoscope passed into the hypopharynx. Vocal cords appeared normal. Scope was advanced to the esophagus throughout its length it was normal. Scope was advanced to the stomach, which was insufflated with air. There was no sign of blood clot, erosion, ulceration, neoplasm, or other problem. The pylorus was normal. Scope was passed through into the duodenum. The duodenum was normal including the third, second, and bulbar portions. Special care was taken to inspect the channel. The scope was withdrawn into the stomach and retroflexed view undertaken. The proximal stomach appeared normal. A somewhat effaced flap valve was noted, however. The scope was withdrawn to the distal esophagus and a Schatzki's ring was noted, this was photographed, but not biopsied. Careful withdrawal of scope showed no other findings of concern. The patient was taken to the recovery room in good condition. CONCLUDING DIAGNOSIS: Very likely the melena was related to whatever process caused in appearance of small bowel obstruction in the jejunum. I have conferred with the radiologist and we will plan for GI contrast CT scan of the abdomen and pelvis tomorrow to assess for neoplasm or other lesion that would account for melena and the transient appearance of bowel obstruction. We will review this with Dr. Garcia as well. Dawna Chacon MD /MODL /[id number] cc: Bebeto Garcia MD Copies: BEBETO GARCIA MD ~ Electronically Signed By: DAWNA CHACON MD 09/06/19 1146 PATIENT NAME: MELE MILES OPERATIVE REPORT DATE OF : 42 REPORT #: [id number] PHYSICIAN: DAWNA CHACON MD PCP: Chinmay You DO REPORT IS CONFIDENTIAL AND NOT TO BE RELEASED WITHOUT AUTHORIZATION
[2019-09-07] MEDS ORDERED: FAMOTIDINE20 MG PO (09:59)
[2019-09-07] MEDS ORDERED: ENOXAPARIN60 MG/0.6 SUB-Q (10:01)
--- NOTE | 2019-09-07 10:58 | PATH ---
[facility] [address] [place], [place] [address] Signed SPECIMEN(S): A CECAL POLYP SPECIMEN SOURCE: A. CECAL POLYP CLINICAL HISTORY: Abdominal pain; melena. Dx: Divertic, int hemorrhoids. MICROSCOPIC DESCRIPTION: Histologic sections of all submitted blocks are examined by light microscopy. These findings, together with the gross examination, support the pathologic diagnosis. FINAL PATHOLOGIC DIAGNOSIS: Colon, cecum, polyp, polypectomy: - Tubular adenoma. - Negative for high-grade dysplasia or malignancy. NAL:cml:C2NR GROSS DESCRIPTION: The specimen, labeled "DO, cecum polyp," is received in formalin and consists of two easley soft tissue fragment(s) that measure 0.2 cm in greatest dimension. The specimen is entirely submitted in cassette (A1). JS (under the direct supervision of a pathologist) The Gross Description was prepared using a voice recognition system. The report was reviewed for accuracy; however, sound-alike word errors, addition and/or deletions may occur. If there is any question about this report, please contact Client Services. PERFORMING LABORATORY: The technical component was performed by [facility] [facility], [address] [place] [id number] (Group President: Mari Mane MD; CLIA# [id number]). [facility] [address] [address] (CLIA# [id number]). Diagnostician: Ines Cain MD Pathologist Electronically Signed 09/07/2019 PATIENT NAME: MELE MILES PATHOLOGY DATE OF : 42 REPORT #: [id number] PHYSICIAN: ADDIE PATHOLOGY PCP: Chinmay You DO REPORT IS CONFIDENTIAL AND NOT TO BE RELEASED WITHOUT AUTHORIZATION [address] [address] Signed Copies: ~ PATIENT NAME: MELE MILES PATHOLOGY DATE OF : 42 REPORT #: [id number] PHYSICIAN: ADDIE PATHOLOGY PCP: Chinmay You DO REPORT IS CONFIDENTIAL AND NOT TO BE RELEASED WITHOUT AUTHORIZATION
--- NOTE | 2019-09-07 11:31 | OR ---
[facility] [address] [place], [place] [address] Signed DATE OF OPERATION: 09/06/2019 SURGEON: Dawna Chacon MD PREOPERATIVE DIAGNOSES: Melena, unknown etiology; negative upper endoscopy, CT scan small-bowel follow-through negative for proximal neoplasm. POSTOPERATIVE DIAGNOSES: Small polyp of cecum (excised), normal ileum, no active bleeding, pandiverticulosis. PROCEDURES: Total colonoscopy to cecum and ileum with hot morcellation, excision of cecal polyp, and application of hemoclip. ANESTHESIA: Intravenous sedation, propofol infusion. PREOPERATIVE ANTIBIOTIC: Cefoxitin. INDICATION: A 79-year-old white woman, who is admitted by Dr. Garcia on 09/03/2019 with melena. She was excessively anticoagulated with Coumadin for her mechanical aortic and mitral valves. Her INR was as high as 9.1. She was converted to heparin drip with correction of her INR with vitamin K. She had an initial CT scan as she had central abdominal pain, which showed dilation of the duodenum and proximal jejunum towards the midline suggestive of a small-bowel obstruction. Notably, she has never had a laparotomy, only a transvaginal hysterectomy in the past. The following day, the bowel obstructive process seemed to have resolved. She underwent upper endoscopy, which showed no sign of lesion to account for melena. A CT scan was repeated with GI contrast showing no sign of obstructive process or neoplasm of the proximal small bowel, though I had suspected that as a likely source of the problem. She has undergone transfusion therapy and remains on a heparin drip with therapeutic anticoagulation. I recommended colonoscopy to assess for right-sided colonic lesion or other possible source of melena. The risks of bleeding, infection, and perforation have been reviewed with her. She understands and wished to proceed. Preoperative antibiotic cefoxitin was given on the basis of valve replacement therapy in the past. FINDINGS: Electronically Signed By: DAWNA CHACON MD 09/07/19 1131 PATIENT NAME: MELE MILES OPERATIVE REPORT DATE OF : 42 REPORT #: [id number] PHYSICIAN: DAWNA CHACON MD PCP: Chinmay You DO REPORT IS CONFIDENTIAL AND NOT TO BE RELEASED WITHOUT AUTHORIZATION [facility] [address] [place], [place] [address] Signed The prep was quite excellent. Complete colonoscopy was undertaken of the cecum that was challenging to do so carefully. She had scattered diverticula throughout the colon including the right side. The ileum was intubated and was normal. There was no sign of ileitis and no sign of blood throughout the GI tract. She had one small polyp of the cecum, which was excised with hot morcellation technique and a hemoclip applied for additional safety against possibility of bleeding. There were no other findings of concern other than internal hemorrhoids. DESCRIPTION OF PROCEDURE: The patient was brought to the endoscopy suite and placed in lateral decubitus position, given preoperative antibiotic cefoxitin. She was given propofol infusional sedation with full cardiopulmonary monitoring. Digital rectal examination was normal. An Olympus video colonoscope was passed in the rectum and manipulated throughout the colon. She had a redundant colon due to thin body habitus, no doubt abdominal wall stabilization was undertaken with all due care considering she was fully anticoagulated with an INR of 70.9. The scope was ultimately advanced to the cecum. The ileocecal valve and appendiceal orifice were well identified. The ileum was intubated and the ileum appeared normal. The scope was withdrawn and a small polyp was noted of the cecum, this was excised with hot morcellation technique. Although, the site was hemostatic. A hemoclip was applied nevertheless. The scope was carefully withdrawn and scattered diverticula are seen throughout the colon, but no other lesion of any concern. Internal hemorrhoids were noted distally. The scope was removed. The patient was taken to the recovery room in good condition. CONCLUDING DIAGNOSIS: No active bleeding or lesions of the right colon or ilium to account for melena. PLAN: I have discussed this with Dr. Garcia. We will plan to resume her diet and convert her to oral anticoagulation with Coumadin once again. Obviously, she will need to stay in a more controlled therapeutic range going forward. I am uncertain as to the source of her melena; it is possible that she had a transient obstructive process in the upper 3rd of the jejunum causing some level of ulceration with bleeding in the setting of excessive anticoagulation. Since the obstructive process has resolved, no further intervention would be indicated at this point. Dawna Chacon MD Electronically Signed By: DAWNA CHACON MD 09/07/19 1131 PATIENT NAME: MELE MILES OPERATIVE REPORT DATE OF : 42 REPORT #: [id number] PHYSICIAN: DAWNA CHACON MD PCP: Chinmay You DO REPORT IS CONFIDENTIAL AND NOT TO BE RELEASED WITHOUT AUTHORIZATION [address] [address] Signed /[facility] /[id number] cc: MD Chinmay Woo DO Copies: BEBETO GARCIA MD, Jeff DO ~ Electronically Signed By: DAWNA CHACON MD 09/07/19 1131 PATIENT NAME: MELE MILES OPERATIVE REPORT DATE OF : 42 REPORT #: [id number] PHYSICIAN: DAWNA CHACON MD PCP: Chinmay You DO REPORT IS CONFIDENTIAL AND NOT TO BE RELEASED WITHOUT AUTHORIZATION
== END 2019-09-07 11:05 | disposition home or self-care (01) | DRG 394 ==
LOC: ED 07:27 → CCU 11:35 → MS 11:35
PROVIDERS: Surgery; ADMIT Internal Medicine; ATTEND Internal Medicine
PROC: 30233N1 Transfusion of Nonautologous Red Blood Cells into Peripheral Vein, Percutaneous Approach (ICD-10-PCS; 2019-09-04)
PROC: 0DJ08ZZ Inspection of Upper Intestinal Tract, Via Natural or Artificial Opening Endoscopic (ICD-10-PCS; principal; 2019-09-04 14:15)
PROC: 0DBH8ZX Excision of Cecum, Via Natural or Artificial Opening Endoscopic, Diagnostic (ICD-10-PCS; 2019-09-06)
DX: K63.3 Ulcer of intestine (principal); D62 Acute posthemorrhagic anemia; K52.9 Noninfective gastroenteritis and colitis, unspecified; Z20.828 Contact with and (suspected) exposure to other viral communicable diseases; K57.30 Diverticulosis of large intestine without perforation or abscess without bleeding; K22.2 Esophageal obstruction; R79.1 Abnormal coagulation profile; K63.5 Polyp of colon; E03.9 Hypothyroidism, unspecified; E78.5 Hyperlipidemia, unspecified; J45.909 Unspecified asthma, uncomplicated; F39 Unspecified mood [affective] disorder; Z95.2 Presence of prosthetic heart valve; Z95.0 Presence of cardiac pacemaker; Z79.01 Long term (current) use of anticoagulants; Z79.51 Long term (current) use of inhaled steroids; Z79.899 Other long term (current) drug therapy
CPT/HCPCS: 36415; 36430; 74018; 74177; 80053; 81001; 83735; 85025; 85610; 85730; 86850; 86900; 86901; 86920; 88305; 93005; 93010; 94640; 94667; 94668; 94760; 96374; 96375; 99285-25; C9113; C9803; J0694; J0744; J1170; J1644; J1650; J2405; J2704; J3430; J3475; J3480; J7030; J7060; J7121; P9016; Q9967; U0002

== ENCOUNTER 2020-08-13 13:50 | Emergency (ER) | payer MEDICARE, OTHER ==
[~2020-08-13] VITALS: Ht 165.1 cm; Wt 54.9 kg
[~2020-08-13 13:50] MED LIST: ADVAIR 250-501 EACH INH; ENOXAPARIN60 MG/0.6 SUB-Q; EZETIMIBE10 MG PO; FAMOTIDINE20 MG PO; LEVOTHYROXINE75 MCG PO; METOPROLOL SUCC25 MG PO; SERTRALINE HCL25 MG PO; VENTOLIN HFA18 GM INH; WARFARIN SODIUM5 MG PO
[2020-08-13] MEDS ORDERED: METOPROLOL TART50 MG PO (14:14)
[2020-08-13] MEDS ORDERED: LEVOTHYROXINE88 MCG PO (14:14)
[2020-08-13] MEDS ORDERED: CIPRO500 MG PO (17:51)
[2020-08-13] MEDS ORDERED: OXYCODONE HCL5 MG PO (17:54)
== END 2020-08-13 19:25 | disposition home or self-care (01) ==
LOC: ED 13:50
DX: N13.2 Hydronephrosis with renal and ureteral calculous obstruction (principal); N39.0 Urinary tract infection, site not specified; N17.9 Acute kidney failure, unspecified; Z79.899 Other long term (current) drug therapy; Z79.01 Long term (current) use of anticoagulants
CPT/HCPCS: 74176; 80053; 81001; 85025; 85610; 96365; 96367; 96375; 99284-25; J0696; J0744; J2270; J2405; J7030

== ENCOUNTER 2021-05-19 00:31 | Inpatient (IN) | payer MEDICARE, OTHER ==
[~2021-05-19] VITALS: Ht 165.1 cm; Wt 56.1 kg
[~2021-05-19 00:31] MED LIST changes: +CIPRO500 MG PO; +LEVOTHYROXINE88 MCG PO; +METOPROLOL TART50 MG PO; +OXYCODONE HCL5 MG PO
[2021-05-19] MEDS ORDERED: BAYER CHEWABLE81 MG PO (01:00)
[2021-05-19] MEDS ORDERED: LEVOTHYROXINE100 MCG PO (10:01)
[2021-05-19] MEDS ORDERED: SERTRALINE HCL50 MG PO (10:04)
[2021-05-19] MEDS ORDERED: TIZANIDINE HCL2 MG PO (10:08)
--- NOTE | 2021-05-28 12:26 | HP ---
[facility] [address] [place], [place] [address] Signed ADMISSION DATE: 05/19/2021 REASON FOR ADMISSION: Distal ileal thickening, uncertain etiology. HISTORY OF PRESENT ILLNESS: This 80-year-old white woman lives in [place] with her . She has had over two months of episodic abdominal pain, some of it in the right lower abdomen and progressive bloating. She vomited twice on the day of her evaluation in the emergency room; the bloating improved. She presented to the emergency room at approximately 1:30 a.m. and was evaluated by Dr. Esperanza Key. She was noted to have significant tenderness in the left and right abdomen. The patient has concurrent issue of excessive anticoagulation with Coumadin. She is said to have two heart valves, I presume atrial and mitral. She had been seen at [facility] the day before with an INR of about 10. She says that she had hematemesis, though has had none since that time. She did advise them at [facility] that she had that, but no specific inquiry was made she says. Her bloating remains about the same right now. She has had no blood per rectum. No nausea or vomiting since admission. The patient is a rather poor historian in aggregate, but much of what I have gathered includes what she said as well as notes that I reviewed. She is also noted to have pacemaker in addition to her valve replacement. CURRENT MEDICATIONS: At admission include: 1. Metoprolol. 2. Synthroid. 3. Ezetimibe. 4. Warfarin. 5. Albuterol. 6. Sertraline. 7. Advair Diskus. 8. Aspirin. REVIEW OF SYSTEMS: She denies any shortness of breath or chest pain. She has had no dysphagia. She did describe hematemesis previously, but none recently. She has had no blood per rectum. Her main complaint is abdominal pain mostly in the right lower abdomen. PHYSICAL EXAMINATION: Electronically Signed By: DAWNA CHACON MD 05/28/21 1226 PATIENT NAME: MELE MILES HISTORY AND PHYSICAL DATE OF : 42 REPORT #: [id number] PHYSICIAN: DAWNA CHACON MD PCP: BEBETO GARCIA MD REPORT IS CONFIDENTIAL AND NOT TO BE RELEASED WITHOUT AUTHORIZATION [facility] [address] [place], [place] [address] Signed GENERAL: This is a pleasant white woman, who does not look systemically toxic or distressed particularly. VITAL SIGNS: Temperature is 98.7, blood pressure 125/57, room air saturation 96%. NECK: Trachea is midline. CHEST: Clear. HEART: Regular. I detect no murmurs currently. ABDOMEN: Somewhat distended and is rather tender, particularly in the right lower abdomen. EXTREMITIES: Show no clubbing, cyanosis, or edema. LABORATORY DATA: Lab study at admission showed a white count of 8.7, hematocrit of 33.4, platelets 160,000. Chem profile with a creatinine of 1.55, glucose of 133. Liver enzymes normal. Lipase 107. Coag studies show an INR of 8.34 with a protime of 66, PTT of 71.1. Serology shows negative COVID and flu findings. Imaging studies as regard to the abdomen and pelvis were without IV or contrast. I reviewed those images myself. There appears to be a rather long segment of distal bowel that is thick-walled with inflammatory change at the mesentery and a small amount of intra-abdominal fluid. Incidentally noted by the radiologist was a 4 mm right middle lobe pulmonary nodule. ASSESSMENT: It is quite unclear exactly the problem. She does have significant tenderness. Given her markedly excessive INR, she is being held with her Coumadin at this time. The differential advanced by the radiologist was rather broad and included small bowel neoplasm, lymphoma, carcinoid, ischemic bowel, and consideration of possible internal hernia or even inflammatory infectious enteritis. Essentially anything is possible it appears. Given her chronic pain issue, I suspect this is not an acute intramural bleed related to excessive anticoagulation. I am at a loss to explain her presumed hematemesis which is yet to be demonstrated. Her hematocrit is lower than normal at 33. Were she not severely anticoagulated and with mechanical valvular issues, exploration would be of little worry, however, avoidance of thrombosis, particularly if she does have a mitral and aortic valve would be of paramount importance. Excessive reversal of her anticoagulation would be problematic. This is a complex situation as to the etiology and diagnosis of her bowel problem in the face of her significant anticoagulation. We will consult Dr. Garcia, hospitalist for his review of the situation and recommendations as to improvement of her coagulopathy, but mindful of her valvular status. She tells me that she has a [place] Theo valve in two different areas, I presume Electronically Signed By: DAWNA CHACON MD 05/28/21 1226 PATIENT NAME: MELE MILES HISTORY AND PHYSICAL DATE OF : 42 REPORT #: [id number] PHYSICIAN: DAWNA CHACON MD PCP: BEBETO GARCIA MD REPORT IS CONFIDENTIAL AND NOT TO BE RELEASED WITHOUT AUTHORIZATION [facility] [address] [place], [place] [address] Signed aorta and mitral valve. We will get a chest x-ray to better affirm this. MD DOMINGO Munoz/DELANEY /[id number] cc: Bebeto Garcia MD Department of Cardiology, [facility] Copies: BEBETO GARCIA MD ~ Electronically Signed By: DAWNA CHACON MD 05/28/21 1226 PATIENT NAME: MELE MILES HISTORY AND PHYSICAL DATE OF : 42 REPORT #: [id number] PHYSICIAN: DAWNA CHACON MD PCP: BEBETO GARCIA MD REPORT IS CONFIDENTIAL AND NOT TO BE RELEASED WITHOUT AUTHORIZATION
== END 2021-05-26 12:10 | disposition home or self-care (01) | DRG 392 ==
LOC: ED 00:31 → CCU 03:58 → MS 03:58
PROVIDERS: ADMIT Surgery; ATTEND Surgery
DX: K52.9 Noninfective gastroenteritis and colitis, unspecified (principal); E03.9 Hypothyroidism, unspecified; E78.5 Hyperlipidemia, unspecified; J45.909 Unspecified asthma, uncomplicated; Z79.899 Other long term (current) drug therapy; Z20.822 Contact with and (suspected) exposure to COVID-19; Z79.82 Long term (current) use of aspirin; I49.5 Sick sinus syndrome; Z95.1 Presence of aortocoronary bypass graft; Z79.01 Long term (current) use of anticoagulants
CPT/HCPCS: 36415; 74176; 74177; 80048; 80053; 81001; 83605; 83690; 83735; 84100; 85025; 85610; 85730; 86140; 87045; 94640; 94760; 96374; 96375; 99285-25; A9270; C9803; J1170; J1956; J2270; J2405; J3475; J7040; J7121; Q9967; U0003

== ENCOUNTER 2024-02-27 13:22 | Emergency (ER) | payer MEDICARE ==
[~2024-02-27] VITALS: Ht 165.1 cm; Wt 54.0 kg
[~2024-02-27 13:22] MED LIST changes: +BAYER CHEWABLE81 MG PO; +LEVOTHYROXINE100 MCG PO; +SERTRALINE HCL50 MG PO; +TIZANIDINE HCL2 MG PO
[2024-02-27] MEDS ORDERED: MECLIZINE HCL25 MG PO (13:39)
[2024-02-27 13:43] LABS: BASOPHILS 3.2 % (0-2); HEMATOCRIT 41.9 % (35.0-50.0); HEMOGLOBIN 14.1 g/dL (12.0-18.0); LYMPHOCYTES 9.9 % (24-44); MCH 30.7 (27-36); MCHC 33.7 g/dl (30-36); MONOCYTES 6.2 % (0-12); NEUTROPHILS 76.7 % (39-80); PLATELET COUNT 142 K/uL (140-440); RDW 14.5 (10.5-15.0)
[2024-02-27] MEDS ORDERED: MORPHINE SULFATE 4 MG/ML VIAL IV ONE (13:45)
[2024-02-27 13:54] LABS: ALBUMIN 3.8 g/dL (3.4-5.0); ALBUMIN/GLOBULIN RATIO 0.86 (1.1-2.4); ANION GAP 11.2 (7-21); BILIRUBIN, TOTAL 0.7 ng/dL (0.2-1.0); BUN/CREATININE RATIO 19.44 (6.0-28.6); CALCIUM 9.6 mg/dL (8.5-10.1); CREATININE, SERUM 1.44 mg/dL (0.55-1.02); POTASSIUM 4.2 mmol/L (3.5-5.1); PROTEIN, TOTAL 8.2 g/dL (6.4-8.2)
[2024-02-27 14:14] LABS: INR 4.08 (0.80-1.30)
[2024-02-27] MEDS ORDERED: ASPIRIN 81 MG CHEW PO ONE (18:15)
[2024-02-27 19:48] VITALS: BP 120/50
--- NOTE | 2024-02-28 15:05 | EKG ---
[facility] [address] [facility] [place] [address] Signed Atrial-paced rhythm with prolonged AV conduction ST \T\ T wave abnormality, consider inferior ischemia ST \T\ T wave abnormality, consider anterolateral ischemia Abnormal ECG When compared with ECG of 31-AUG-2022 04:56, T wave inversion more evident in Anterior leads QT has shortened Confirmed by Evie Yuan MD ([id number]) on 02/28/2024 3:05:07 PM Electronically Signed By: EVIE YUAN MD 02/28/24 1505 PATIENT NAME: MELE MILES Electrocardiogram DATE OF : 42 PHYSICIAN: EVIE YUAN MD REPORT #: [id number] REPORT IS CONFIDENTIAL AND NOT TO BE RELEASED WITHOUT AUTHORIZATION
== END 2024-02-27 19:50 | disposition short-term general hospital (02) ==
LOC: ED 13:22
PROVIDERS: Emergency Medicine
DX: I21.4 Non-ST elevation (NSTEMI) myocardial infarction (principal); Z95.0 Presence of cardiac pacemaker; Z79.01 Long term (current) use of anticoagulants; Z79.890 Hormone replacement therapy; Z79.899 Other long term (current) drug therapy
CPT/HCPCS: 36415; 71275; 74174; 76705; 80053; 83690; 84484; 85025; 85610; 93005; 93010; 99285-25; A9270; J2270; Q9967

== ENCOUNTER 2024-10-05 01:28 | Inpatient (IN) | payer MEDICARE, OTHER ==
[2024-10-05] VITALS (9 sets, daily range): BP systolic 100–155; BP diastolic 42–75
[~2024-10-05] VITALS: Ht 165.1 cm; Wt 54.0 kg
[~2024-10-05 01:28] MED LIST changes: +MECLIZINE HCL25 MG PO
[2024-10-05] MEDS ORDERED: SODIUM CHLORIDE 0.9% 1,000 ML IV ONE (01:45)
[2024-10-05] MEDS ORDERED: MORPHINE SULFATE 4 MG/ML VIAL IV ONE (01:45)
[2024-10-05 01:55] LABS: BASOPHILS 0.2 % (0.1-1.2); EOSINOPHILS 0.5 % (0.7-5.8); LYMPHOCYTES 8.3 % (19.3-51.7); MCH 29.3 PG (25.6-32.2); MCHC 32.8 g/dL (32.2-35.5); MCV 89.2 fL (79.4-94.8); MONOCYTES 10.1 % (4.7-12.5); NEUTROPHILS 80.6 % (34.0-71.1); RBC 4.37 M/uL (3.93-5.22)
[2024-10-05 02:07] LABS: PROTIME 103.3 Sec (11.2-14.2)
[2024-10-05 02:12] LABS: INR 14.92 (0.80-1.30)
[2024-10-05 02:19] LABS: ALT (SGPT) 25.0 U/L (14-59); AST (SGOT) 31.0 U/L (15-37); GLOMERULAR FILTRATION RATE,EST 36.0 mL/min (>60); PROTEIN, TOTAL 7.5 g/dL (6.4-8.2); UREA NITROGEN 30.0 mg/dL (7-18)
[2024-10-05] MEDS ORDERED: PHYTONADIONE 10 MG/ML AMP SUB-Q ONE (02:30)
[2024-10-05 03:42] LABS: BASOPHILS 0.2 % (0.1-1.2); EOSINOPHILS 0.4 % (0.7-5.8); LYMPHOCYTES 4.9 % (19.3-51.7); MCH 29.6 PG (25.6-32.2); MCHC 32.6 g/dL (32.2-35.5); MCV 90.8 fL (79.4-94.8); MONOCYTES 8.8 % (4.7-12.5); NEUTROPHILS 85.3 % (34.0-71.1); RBC 3.82 M/uL (3.93-5.22)
[2024-10-05 03:54] LABS: PROTIME 108.7 Sec (11.2-14.2)
[2024-10-05 03:55] LABS: INR 15.45 (0.80-1.30)
[2024-10-05] MEDS ORDERED: PHYTONADIONE 10 MG/ML AMP ONE (03:59)
[2024-10-05] MEDS ORDERED: PHYTONADIONE 5 MG in DEXTROSE 5% 50 ML IV ONE (04:00)
[2024-10-05] MEDS ORDERED: ACETAMINOPHEN 325 MG TAB PO PRN ×2 (04:00→09:45)
[2024-10-05] MEDS ORDERED: MORPHINE SULFATE 4 MG/ML VIAL IV PRN (04:00)
[2024-10-05] MEDS ORDERED: DEXTROSE 5% - LACTATED RINGERS 1,000 ML IV SCH (04:00)
[2024-10-05] MEDS ORDERED: ALBUTEROL SULFATE 0.083% 3 ML VIAL INH PRN (04:15)
[2024-10-05 04:16] LABS: ABO O; ANTIBODY SCREEN NEGATIVE; RH POSITIVE
--- NOTE | 2024-10-05 04:50 | NUR ---
pt ARRIVED TO THE FLOOR VIA STRETCHER. ASSESSMENT DONE. REPORT RECEIVED FROM INTERNATIONAL REPRESENTATIVE. pt ABLE TO SCOOT HERSELF OVER TO THE BED. IVF INFUSING PER ORDER. TELE #2 PLACED ON pt. CPOX ON. WARM BLANKETS PROVIDED. BED ALARM ON. pt DENIES ANY OTHER NEEDS AT THIS TIME. CALL LIGHT WITHIN REACH.
--- NOTE | 2024-10-05 05:34 | NUR ---
0435 - admitted to room 123 from er via stretcher. alert and oriented to all. VitK infusing LAC. COoperative with admit questions, vitals and assessments. warm blanket given on requests. NPO, swabs at bedside
--- NOTE | 2024-10-05 07:34 | NUR ---
Patient resting in bed, eyes closed, resprirations even and non labored. Patient has no distress, sp02 96% on room air. Patient's daughter at bedside.
[2024-10-05] MEDS ORDERED: BUDESONIDE 0.5 MG/2 ML VIAL INH SCH (08:00)
[2024-10-05] MEDS ORDERED: ALBUTEROL/IPRATROPIUM 3 ML NEB INH SCH (08:00)
[2024-10-05] MEDS ORDERED: ARFORMOTEROL TARTRATE 15 MCG/2 ML VIAL INH SCH (08:00)
[2024-10-05] MEDS ORDERED: LEVOTHYROXINE75 MCG PO (08:21)
--- NOTE | 2024-10-05 08:56 | NUR ---
PATIENT IS IN BED AT THIS TIME, BRICK SIDING APPLICATOR CHARTED VITALS, PATIENT IS NPO AT THIS TIME, HAS NOT VOIDED YET. DAUGHTER IN ROOM, CALL LIGHT WITH IN REACH AND NOTHING ELSE NEEDED AT THIS TIME.
--- NOTE | 2024-10-05 09:30 | NUR ---
MED REC COMPLETE
[2024-10-05] MEDS ORDERED: LACTATED RINGER'S 1,000 ML IV SCH (09:45)
[2024-10-05] MEDS ORDERED: PANTOPRAZOLE SODIUM 40 MG/10 ML VIAL IV SCH (10:08)
[2024-10-05 10:19] LABS: INR 2.07 (0.80-1.30); PROTIME 22.6 Sec (11.2-14.2)
--- NOTE | 2024-10-05 11:44 | NUR ---
INTO SEE PATIENT. PERSONAL HEALTH INFORMATION REVIEWED. PATIENT LIVES AT HOME WITH . DAUGHTER AND AT BEDSIDE. PATIENT HAS NO STEPS INTO HOME. USES A WALKER, CANE AT HOME. DOES NOT USE ANY OXYGEN OR CPAP. PATIENT DOES NOT DRIVE. DRIVES. PATIENT DENIES DIFFCUTLY PAYING UTLITIES OR OBTAINING FOOD. PATIENT FAMILY WOULD LIKE CAREGIVER INFORMATION AND NUMBER FOR OPI. PATIENT FAMILY DENIES ANY OTHER CM NEEDS AT THIS TIME.
[2024-10-05] MEDS ORDERED: PHARMACY RENAL DOSE ADJUSTMENT 1 DOSE MISC PO SCH (12:00)
--- NOTE | 2024-10-05 13:35 | NUR ---
UR CLINICAL REVIEW: 2 MN LUCY, MEETS INPT FOR SUPRATHERAPEUTIC INR/ INTRACTIBLE NAUSEA/VOMITING INR 14, IV FLUIDS, CLEAR LIQUID DIET, TREND LABS, SURGICAL CONSULT MEDICARE INPT 10/05/24 @ 1012 ORDER MATCHES REG NO AUTH REQUIRED PER MEDICARE RULES DC TO HOME WHEN MEDICALLY READY.
--- NOTE | 2024-10-05 13:51 | NUR ---
Patient sitting up in chair, alert and oriented x3, no acute distress. Patient denies n/v and stooling thus far in shift. Patient denies pain at this time. IV fluids infusing per order. Call light remains within reach.
[2024-10-05 14:59] LABS: BLOOD/HGB, URINE MODERATE (Negative); KETONE, URINE NEGATIVE (Negative); LEUK ESTERASE, URINE NEGATIVE (negative); NITRITE, URINE NEGATIVE (negative)
[2024-10-05 15:08] LABS: BACTERIA, URINE NONE SEEN /hpf (negative); CASTS, URINE NONE SEEN \\lpf; CRYSTALS, URINE NONE SEEN (0-1+); EPITHELIAL CELLS, URINE SQUAMOUS 1+ /lpf (0-1+); REFLEX CULTURE, URINE No (No)
--- NOTE | 2024-10-05 15:16 | NUR ---
Patient sitting up in chair visiting with family, no distress. Patient denies needs at this time. Patient continues to deny n/v and or pain.
[2024-10-05] MEDS ORDERED: WARFARIN PER PHARMACY PROTOCOL PO SCH (16:00)
[2024-10-05] MEDS ORDERED: WARFARIN SOD 5 MG TAB PO SCH (16:00)
--- NOTE | 2024-10-05 19:38 | NUR ---
REPORT RECEIVED FROM NOHEMY SNOW. PATIENT IN CHAIR, EYES CLOSED, CHEST RISE EVEN AND UNLABORED. CALL LIGHT AND PERSONAL BELONGINGS IN REACH OF PATIENT. NO APPARENT NEEDS NOTED AT THIS TIME.
--- NOTE | 2024-10-05 20:48 | NUR ---
PATIENT IN BED WITH HOB RAISED, EYES OPEN, CHEST RISE EVEN AND UNLABORED. ASSESMENT AND VITAL SIGNS COMPLETED. PATIENT DENIES CONCERNS AT THIS TIME. SCHEDULED MEDICATIONS ADMINISTERED. IV FLUID INFUSIGN WITHOUT DIFFICULTY.
[2024-10-05] MEDS ORDERED: EZETIMIBE 10 MG TAB PO SCH (21:00)
[2024-10-05] MEDS ORDERED: MELATONIN 3 MG TAB PO PRN (21:00)
--- NOTE | 2024-10-05 23:57 | NUR ---
PATIENT IN BED WITH HOB RAISED, EYES CLOSED, CHEST RISE EVEN AND UNLABORED. CALL LIGHT AND PERSONAL BELONGINGS IN REACH OF PATIENT. IV FLUID INFUSING WITHOUT DIFFICULTY. NO APPARENT NEEDS NOTED AT THIS TIME.
[2024-10-06] VITALS (12 sets, daily range): BP systolic 116–161; BP diastolic 43–60
--- NOTE | 2024-10-06 01:50 | NUR ---
CALL LIGHT ANSWERED. PT NEEDED TO USE BATHROOM. PUBLIC HEALTH AIDE 1PA WITH FWW TO BATHROOM. PT VOIDED AND ASSISTED BACK TO BED. VITALS AND I&O OBTAINED AND TELE BATTERY CHANGED. PT STATES NO FURTHER NEEDS AT THIS TIME. CALL LIGHT WITHIN REACH AND BED ALARM ON.
--- NOTE | 2024-10-06 04:22 | NUR ---
PATIENT IN BED WITH HOB RAISED, EYES OPEN, CHEST RISE EVEN AND UNLABORED. CALL LIGHT AND PERSONAL BELONGINGS IN REACH OF PATIENT. PATIENT DENIES CONCERNS AT THIS TIME.
--- NOTE | 2024-10-06 04:31 | NUR ---
BED ALARM ANSWERED. PT STATED NEED TO USE BATHROOM. ELECTRICAL TESTER 1PA WITH FWW TO BATHROOM. PT VOIDED AND ASSISTED BACK TO BED. VITALS AND I&O OBTAINED. PT STATES NO FURTHER NEEDS AT THIS TIME. CALL LIGHT WITHIN REACH AND BED ALARM ON.
[2024-10-06 05:25] LABS: BASOPHILS 0.4 % (0.1-1.2); EOSINOPHILS 4.5 % (0.7-5.8); LYMPHOCYTES 15.2 % (19.3-51.7); MCH 30.0 PG (25.6-32.2); MCHC 33.0 g/dL (32.2-35.5); MCV 90.9 fL (79.4-94.8); MONOCYTES 13.8 % (4.7-12.5); NEUTROPHILS 65.7 % (34.0-71.1); RBC 3.20 M/uL (3.93-5.22)
[2024-10-06 05:47] LABS: ALT (SGPT) 25.0 U/L (14-59); AST (SGOT) 30.0 U/L (15-37); GLOMERULAR FILTRATION RATE,EST 39.0 mL/min (>60); PROTEIN, TOTAL 5.4 g/dL (6.4-8.2); UREA NITROGEN 23.0 mg/dL (7-18)
[2024-10-06 05:54] LABS: INR 1.42 (0.80-1.30); PROTIME 16.8 Sec (11.2-14.2)
--- NOTE | 2024-10-06 06:31 | NUR ---
PATIENT IN BED WITH HOB RAISED, EYES OPEN, CHEST RISE EVEN AND UNLABORED. SCHEDULED MEDICAITON ADMINISTERED. PATIENT DENIES CONCERNS. IV FLUID INFUSING WITHOUT DIFFICULTY. CALL LIGHT AND PERSONAL BELONGINGS IN REACH OF PATIENT.
--- NOTE | 2024-10-06 06:47 | NUR ---
call light answered, bed alarm soon after went off-pt up sba with fww to bcs to void. pt back in bed, alarm resumed. call light in reach, pt denies additional needs.
[2024-10-06] MEDS ORDERED: LEVOTHYROXINE SODIUM 75 MCG TAB PO SCH (07:00)
[2024-10-06] MEDS ORDERED: POTASSIUM CHLORIDE 10 MEQ TABCR PO ONE (09:00)
[2024-10-06] MEDS ORDERED: MAGNESIUM SULFATE 2 GM/50 ML BAG IV ONE (09:00)
[2024-10-06] MEDS ORDERED: SERTRALINE HCL 50 MG TAB PO SCH (09:00)
--- NOTE | 2024-10-06 09:23 | NUR ---
INTO SEE FAMILY. DISCUSSED OPTIONS OF HOME HEALTH VERSUS [facility]IN CLNIC. DAUGHTER AT BEDSIDE.
--- NOTE | 2024-10-06 10:17 | NUR ---
PATIENT IS IN BED AT THIS TIME, RESEARCH GEOLOGIST CHARTED VITALS AND I&O'S, CALL LIGHT WITH IN REACH, FAMILY IN ROOM, PATIENT STATES HER LEFT ARM IS HURTING AFTER THEY STARTED THE MAGNESIUM, EDY SLATER NOTIFIED. NOTHING ELSE NEEDED AT THIS TIME.
--- NOTE | 2024-10-06 11:03 | NUR ---
PT NOT AVAILABLE FOR VISIT. PROVIDED PRAYER.
--- NOTE | 2024-10-06 11:54 | NUR ---
SPOKE WITH [facility]. THEY GAVE ME THE REFFERAL SHEET FOR JB'S OFFICE TO FILL OUT. WALKED REFFERAL OVER TO DR. MUHAMMAD OFFICE. THEY ARE AWARE. ALSO AWARE TO ORDER AN INR NEXT WEDNESDAY AT [facility] DUE TO [facility] WILL NOT BE ABLE TO SCHEDULE THE PATIENT IN TIME.
--- NOTE | 2024-10-06 12:37 | NUR ---
Patient in bed visiting with her at bedside, no distress. Patient denies nausea and or abdominal pain. IV remains patent. Patient updated regarding plan or care. Clear liquid diet continued. Call light within reach.
--- NOTE | 2024-10-06 12:49 | NUR ---
PATIENT WAS IN BED AT THIS TIME, NEEDED ASSISTANCE TO THE RESTROOM, CHANGED HER BREIF, CHANGED HER LINENS, GOT HER UP TO HER CHAIR, CALL LIGHT WTIH IN REACH AND NOTHING ELSE NEEDED AT THIS TIME.
--- NOTE | 2024-10-06 15:36 | NUR ---
Patient in bed visiting with her son, no distress. Patient denies nausea today, she continues to tolerated clear liquids well. Patient denies needs, personal supplies and call light within reach.
[2024-10-06] MEDS ORDERED: WARFARIN SOD 5 MG TAB PO SCH (16:00)
--- NOTE | 2024-10-06 19:05 | NUR ---
PATIENT IS IN BED EATTING JASON AGUIAR CHARTED VITALS AND I&O'S, CALL LIGHT WITH IN REACH AND NOTHING ELSE NEEDED AT THIS TIME.
--- NOTE | 2024-10-06 20:16 | NUR ---
CALL LIGHT ANSWERED. PT NEEDED TO UE ABTHROOM. STOCKROOM HELPER 1PA WITH FWW TO BATHROOM. PT VOIDED AND ASSISTED BACK TO BED. VITALS AND I&O OBTAINED. PT STATES NO FURTHER NEEDS AT THIS TIME. CALL LIGHT WITHIN REACH AND BED ALARM ON.
[2024-10-07] VITALS (7 sets, daily range): BP systolic 106–131; BP diastolic 45–88
--- NOTE | 2024-10-07 01:28 | NUR ---
CALL LIGHT ANSWERED. PT NEEDED TO USE BATHROOM. HEAV[employer] EQUIPMENT PLUMBING SUPERVISOR 1PA WITH FWW TO BATHROOM. PT VOIDED AND ASSISTED BACK TO BED. VITALS AND I&O OBTAINED. PT STATES NO FURTHER NEEDS AT THIS TIME. CALL LIGHT WITHIN REACH AND BED ALARM ON.
--- NOTE | 2024-10-07 02:12 | NUR ---
AWAKE, WATCHING TV, IVF INFUSIGN W/O PROBLEMS. TELE#[address] PACED, DENIES CP OR SOB.
--- NOTE | 2024-10-07 02:49 | NUR ---
CALL LIGHT ANSWERED. PT NEEDED TO USE BATHROOM. 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 PT VOIDED AND ASSISTED BACK TO BED. PT STATES NO FURTHER NEEDS AT THIS TIME. CALL LIGHT WITHIN REACH AND BED ALARM ON.
--- NOTE | 2024-10-07 02:59 | NUR ---
UP TO BRP, VOIDED, BACK TO BED, 1PA/FWW, TOLERATED WELL.
--- NOTE | 2024-10-07 04:03 | NUR ---
AWAKE, STATES "I JUST CANT GET TO SLEEP TIL 0400". NO C/O PAIN. IVF INFUSING W/O PROBLEMS. TELE#[address] PAC[address]. NO C/O CP OR SOB. WARM BLANKETS TO LEGS, ELEVATED
--- NOTE | 2024-10-07 04:49 | NUR ---
USED CALL LIGHT, UP TO BRP, WAS INCONTINENT PLUS VOIDED CLEAR URINE QS. 1PA/FWW SKIN CARE. BACK TO BED, TOLERATED WELL, NO S/SX SOB OR CP, TELE#[address], IVF INFUSING W/O PROBLEMS, NO N/V, NO BM.
[2024-10-07 05:17] LABS: BASOPHILS 0.6 % (0.1-1.2); EOSINOPHILS 4.7 % (0.7-5.8); LYMPHOCYTES 15.7 % (19.3-51.7); MCH 30.2 PG (25.6-32.2); MCHC 33.7 g/dL (32.2-35.5); MCV 89.7 fL (79.4-94.8); MONOCYTES 11.4 % (4.7-12.5); NEUTROPHILS 67.2 % (34.0-71.1); RBC 3.01 M/uL (3.93-5.22)
[2024-10-07 05:33] LABS: ALT (SGPT) 18.0 U/L (14-59); AST (SGOT) 27.0 U/L (15-37); GLOMERULAR FILTRATION RATE,EST 44.0 mL/min (>60); PROTEIN, TOTAL 5.4 g/dL (6.4-8.2); UREA NITROGEN 16.0 mg/dL (7-18)
[2024-10-07 05:42] LABS: INR 2.18 (0.80-1.30); PROTIME 23.5 Sec (11.2-14.2)
--- NOTE | 2024-10-07 06:22 | NUR ---
CALL LIGHT ANSWERED. PT NEEDED TO USE BATHROOM. 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 PT VOIDED AND ASSISTED BACK TO BED. PT STATES NO FURTHER NEEDS AT THIS TIME. CALL LIGHT WITHIN REACH AND BED ALARM ON.
--- NOTE | 2024-10-07 08:06 | NUR ---
Patient awake, alert and oriented to self and place. Patient reports she slept well last night. Fresh water to patient. Bed alarm intact, call light within reach.
--- NOTE | 2024-10-07 09:36 | NUR ---
PT SITTING UP IN BED, ONE VISITOR IN THE ROOM. PT HAS AMBULATED TO THE TOILET TWICE THIS AM, WITH ONE BM, MED. CALL LIGHT WITHIN REACH. PT STILL WORKING ON BREAKFAST.
--- NOTE | 2024-10-07 09:58 | NUR ---
PT SITTING UP WATCHING TV. ONE VISITOR IN THE ROOM. PT SEEMS CONFUSED, ASKING QUESTIONS MORE THAN ONCE AND NOT UNDERSTANDING TIME, THINKING IT WAS LUNCH SHE WAS EATING INSTEAD OF BREAKFAST. CALL LIGHT WITHIN REACH, PT HAS PART OF HER MILK STILL TO FINISH FROM BREAKFAST. PT REPORTED NEEDING NOTHING MORE AT THIS TIME.
--- NOTE | 2024-10-07 13:16 | NUR ---
PT GETTING READY TO DC FROM HOSPITAL. GOT PT DRESSED AND GOT FRESH ICE WATER FOR THE CAR RIDE HOME. WHEELED PT TO CAR.
== END 2024-10-07 12:55 | disposition home or self-care (01) | DRG 392 ==
LOC: ED 01:28 → MS 01:29
PROVIDERS: Family Medicine; ADMIT Student in an Organized Health Care Education/Training Program; ATTEND Student in an Organized Health Care Education/Training Program
DX: K52.9 Noninfective gastroenteritis and colitis, unspecified (principal); R79.1 Abnormal coagulation profile; I25.10 Atherosclerotic heart disease of native coronary artery without angina pectoris; I49.5 Sick sinus syndrome; E78.5 Hyperlipidemia, unspecified; E03.9 Hypothyroidism, unspecified; I10 Essential (primary) hypertension; Z66 Do not resuscitate; F32.9 Major depressive disorder, single episode, unspecified; Z95.4 Presence of other heart-valve replacement; Z95.0 Presence of cardiac pacemaker; Z98.890 Other specified postprocedural states; Z79.01 Long term (current) use of anticoagulants; Z79.51 Long term (current) use of inhaled steroids; Z79.890 Hormone replacement therapy; Z79.899 Other long term (current) drug therapy
CPT/HCPCS: 36415; 74177; 80053; 81001; 83690; 83735; 85025; 85610; 86850; 86900; 86901; 87045; 87046; 94640; 94760; 94762; 94799; 97162; 97165; A9270; G0378; J2270; J2405; J2470; J3430; J3475; J7030; J7121; J7605